=== PATIENT | male | born 1960 | race Caucasian/White ===

== ENCOUNTER 2016-10-07 13:36 | Emergency (ER) | payer BC ==
[~2016-10-07] VITALS: Ht 170.2 cm; Wt 100.2 kg
[~2016-10-07 13:36] MED LIST: AMLO5TAB2 PO; CLC100 PO; MRLP17 PO; MULT-922 PO; ONDA4TAB65 PO; OXYSR15 PO; RXC5 PO; TADA5TAB11 PO
[2016-10-07 13:42] VITALS: TEMP 36.8; Ht 170.2 cm; Wt 100.2 kg
[2016-10-07] MEDS ORDERED: TRAM-10 PO (14:16)
[2016-10-07] MEDS ORDERED: LISI-787 PO (14:16)
[2016-10-07] MEDS ORDERED: CIPR-255 PO (14:16)
[2016-10-07] MEDS ORDERED: SODIUM CHLORIDE 0.9% 1000ML 1,000 ML IV STA ×2 (14:18→15:37)
[2016-10-07] MEDS ORDERED: MoRPHine SULFATE 4 MG/ML 1 ML CARP\\VIAL IV STA (14:18)
[2016-10-07 15:06] LABS: BASO % 0.5 %; BASO ABS # 0.03 K/uL (0-0.2); COMPLETE YES; EOS % 1.1 %; IG% 0.3 %; MEAN CELL VOLUME 95.3 fL (80-100); MEAN CORPUSCULAR HEMOGLOBIN 34.9 pg (25-34); MEAN CORPUSCULAR HGB CONC 36.6 g/dl (32-36); MEAN PLATELET VOLUME 9.4 fL (7.4-10.4); NEUT % 51.1 %; PLATELET COUNT 158 K/uL (130-400); RED BLOOD COUNT 4.93 M/uL (4.7-6.1); WHITE BLOOD COUNT 6.16 K/uL (4.8-10.8)
[2016-10-07 15:24] LABS: CALCIUM 7.3 mg/dl (8.5-10.1); CREATININE 0.9 mg/dl (0.60-1.40); POTASSIUM 3.9 mmol/L (3.5-5.1)
[2016-10-07] MEDS ORDERED: OPTIRAY 320 IV PRN (15:45)
--- NOTE | 2016-10-07 16:23 | DIAGNOSTIC IMAGING REPORT ---
CT OF THE ABDOMEN AND PELVIS WITH CONTRAST CLINICAL HISTORY: Abdominal pain and bloating. COMPARISON STUDY: CT of the abdomen and pelvis January 07, 2016 and abdominal series January 09, 2016. TECHNIQUE: Following IV administration of 93 mL of Optiray-320, axial images of the abdomen and pelvis were obtained from the lung bases to the proximal femurs. Images were reviewed in the axial, sagittal, and coronal planes. IV contrast was administered without complication. CT DOSE: 1003.66 mGycm FINDINGS: Lung bases are clear. There is mild cardiomegaly. A small hiatal hernia is present. Fatty infiltration of the liver is noted. The spleen, adrenal glands, kidneys and pancreas are normal. There is no biliary or pancreatic ductal dilatation. There is no evidence for a bowel obstruction. There is left colon diverticulosis without evidence for acute diverticulitis. There is no free air. No suspicious skeletal lesions are identified. There is mild dextroscoliosis of the thoracolumbar spine. The appendix is normal. IMPRESSION: 1. No acute process within the abdomen or pelvis. 2. Fatty liver. 3. Small hiatal hernia. Electronically signed by: Corey Abreu M.D. 10/07/2016 4:21 PM Dictated Date/Time: 10/07/2016 4:15 PM
--- NOTE | 2016-10-07 17:18 | EMERGENCY ROOM VISIT NOTE ---
History First contact with patient: 14:02 Chief Complaint: ABDOMINAL PAIN Stated Complaint: NOT EATING, ABD. PAIN, NOT FEELING WELL Nursing Triage Summary: pt was laid off 2 weeks ago. per "he drank himself sick". pt c/o n/v/d, abd pain. hx of alchoholism History of Present Illness The patient is a 56 year old male who presents to the Emergency Room with complaints of abdominal pain, decreased appetite and diarrhea. The patient is here with his , who states that the patient was laid off of work 2 weeks ago and has been "drinking himself sick" since then. She states that she believes there is something wrong with his kidneys, as this has happened to him before. Patient has had diarrhea and has not been eating much. The patient has been drinking a half liter of vodka daily. His last drink was yesterday. Prior to this, the patient had been drinking 1-2 alcoholic beverages per day. He does have a history of alcoholism. He rates his discomfort a 10/10. He denies any chest pain, palpitations, shortness of breath, vomiting, fevers or recent illness. Review of Systems A complete 10-point Review of Systems was discussed with the patient, with pertinent positives and negatives listed in the History of Present Illness. All remaining Review of Systems questions can be considered negative unless otherwise specified. Past Medical/Surgical History Medical Problems: (1) NUBIA (acute kidney injury) (2) Alcohol abuse (3) Alcohol intoxication (4) Benign hypertension (5) Coronary artery disease (6) Dyslipidemia (7) History of Clostridium difficile (8) History of GI bleed (9) hyperhidrosis (10) Hypertension (11) Portal hypertensive gastropathy (12) RBBB (13) Renal artery stenosis (14) Rhabdomyolysis (15) Tobacco user Surgical Problems: (1) H/O esophagogastroduodenoscopy Family History Diabetes mellitus BROTHER Hypertension Social History Smoking Status: Current Every Day Smoker Alcohol Use: heavy Drug Use: none Marital Status: Housing Status: lives with significant other Occupation Status: employed Current/Historical Medications Scheduled Ciprofloxacin Hcl (Cipro), 500 MG PO BID Docusate Sodium (Docusate Sodium), 100 MG PO BID Lisinopril/Hctz (Zestoretic 20MG/12.5MG), 1 TAB PO DAILY Multiple Vitamins W/ Minerals (Multivitamin Adults), 1 TAB PO DAILY Tramadol (Ultram), 100 MG PO BID Allergies Coded Allergies: No Known Allergies (Unverified , 05/28/16) Physical Exam Vital Signs Date Time Temp Pulse Resp B/P Pulse Ox O2 Delivery O2 Flow Rate FiO2 10/07/16 17:35 96 20 154/107 98 10/07/16 16:58 98 20 166/113 98 Room Air 10/07/16 15:11 93 18 162/109 94 Room Air 10/07/16 14:38 101 22 142/105 95 Room Air 10/07/16 14:30 102 10/07/16 13:42 36.8 122 18 143/98 96 Room Air Physical Exam VITALS: Vitals are noted on the nurse's note and reviewed by myself. Vital signs stable. GENERAL: This is a 56-year-old male, in no acute distress, nondiaphoretic, well- developed well-nourished. SKIN: Capillary reflex less than 2 seconds. HEENT: Normocephalic. PERRLA. EOMI. Nares patent. Mucous membranes moist. Neck is supple without nuchal rigidity. HEART: Regular rate and rhythm without murmurs gallops or rubs. LUNGS: Clear to auscultation bilaterally without wheezes, rales or rhonchi. No retractions or accessory muscle use. ABDOMEN: Obese abdomen. Positive bowel sounds. Soft, nontender to palpation. NEURO: Patient was alert and oriented to person place and time. Medical Decision & Procedures ER Provider Diagnostic Interpretation: CT OF THE ABDOMEN AND PELVIS WITH CONTRAST CLINICAL HISTORY: Abdominal pain and bloating. COMPARISON STUDY: CT of the abdomen and pelvis January 07, 2016 and abdominal series January 09, 2016. TECHNIQUE: Following IV administration of 93 mL of Optiray-320, axial images of the abdomen and pelvis were obtained from the lung bases to the proximal femurs. Images were reviewed in the axial, sagittal, and coronal planes. IV contrast was administered without complication. CT DOSE: 1003.66 mGycm FINDINGS: Lung bases are clear. There is mild cardiomegaly. A small hiatal hernia is present. Fatty infiltration of the liver is noted. The spleen, adrenal glands, kidneys and pancreas are normal. There is no biliary or pancreatic ductal dilatation. There is no evidence for a bowel obstruction. There is left colon diverticulosis without evidence for acute diverticulitis. There is no free air. No suspicious skeletal lesions are identified. There is mild dextroscoliosis of the thoracolumbar spine. The appendix is normal. IMPRESSION: 1. No acute process within the abdomen or pelvis. 2. Fatty liver. 3. Small hiatal hernia. Laboratory Results 10/07/16 14:40 Red Blood Count 4.93, Mean Corpuscular Volume 95.3, Mean Corpuscular Hemoglobin 34.9, Mean Corpuscular Hemoglobin Concent 36.6, Mean Platelet Volume 9.4, Neutrophils (%) (Auto) 51.1, Lymphocytes (%) (Auto) 39.0, Monocytes (%) (Auto) 8.0, Eosinophils (%) (Auto) 1.1, Basophils (%) (Auto) 0.5, Neutrophils # (Auto) 3.15, Lymphocytes # (Auto) 2.40, Monocytes # (Auto) 0.49, Eosinophils # (Auto) 0.07, Basophils # (Auto) 0.03 10/07/16 14:40 Test 10/07/16 14:40 10/07/16 16:50 White Blood Count 6.16 K/uL (4.8-10.8) Red Blood Count 4.93 M/uL (4.7-6.1) Hemoglobin 17.2 g/dL (14.0-18.0) Hematocrit 47.0 % (42-52) Mean Corpuscular Volume 95.3 fL (80-100) Mean Corpuscular Hemoglobin 34.9 pg (25-34) Mean Corpuscular Hemoglobin Concent 36.6 g/dl (32-36) Platelet Count 158 K/uL (130-400) Mean Platelet Volume 9.4 fL (7.4-10.4) Neutrophils (%) (Auto) 51.1 % Lymphocytes (%) (Auto) 39.0 % Monocytes (%) (Auto) 8.0 % Eosinophils (%) (Auto) 1.1 % Basophils (%) (Auto) 0.5 % Neutrophils # (Auto) 3.15 K/uL (1.4-6.5) Lymphocytes # (Auto) 2.40 K/uL (1.2-3.4) Monocytes # (Auto) 0.49 K/uL (0.11-0.59) Eosinophils # (Auto) 0.07 K/uL (0-0.5) Basophils # (Auto) 0.03 K/uL (0-0.2) RDW Standard Deviation 47.1 fL (36.4-46.3) RDW Coefficient of Variation 13.5 % (11.5-14.5) Immature Granulocyte % (Auto) 0.3 % Immature Granulocyte # (Auto) 0.02 K/uL (0.00-0.02) Anion Gap 11.0 mmol/L (3-11) Est Creatinine Clear Calc Drug Dose 105.8 ml/min Estimated GFR () 111.8 Estimated GFR (Non- 96.5 BUN/Creatinine Ratio 20.0 (10-20) Calcium Level 7.3 mg/dl (8.5-10.1) Total Bilirubin 1.7 mg/dl (0.2-1) Aspartate Amino Transf (AST/SGOT) 333 U/L (15-37) Alanine Aminotransferase (ALT/SGPT) 189 U/L (12-78) Alkaline Phosphatase 83 U/L (45-117) Total Creatine Kinase 304 U/L (39-308) Total Protein 6.9 gm/dl (6.4-8.2) Albumin 3.4 gm/dl (3.4-5.0) Globulin 3.5 gm/dl (2.5-4.0) Albumin/Globulin Ratio 1.0 (0.9-2) Ethyl Alcohol mg/dL 263.0 mg/dl (0-3) Urine Color YELLOW Urine Appearance CLEAR (CLEAR) Urine pH 6.0 (4.5-7.5) Urine Specific [place] 1.023 (1.000-1.030) Urine Protein NEG (NEG) Urine Glucose (UA) NEG (NEG) Urine Ketones NEG (NEG) Urine Occult Blood NEG (NEG) Urine Nitrite NEG (NEG) Urine Bilirubin NEG (NEG) Urine Urobilinogen NEG (NEG) Urine Leukocyte Esterase NEG (NEG) Urine Opiates Screen POS (NEG) Urine Methadone, Qualitative NEG (NEG) Urine Barbiturates NEG (NEG) Urine Phencyclidine (PCP) Level NEG (NEG) Ur Amphetamine/Methamphetamine NEG (NEG) MDMA (Ecstasy) Screen NEG (NEG) Urine Benzodiazepines Screen NEG (NEG) Urine Cocaine Metabolite NEG (NEG) Urine Marijuana (THC) NEG (NEG) Medications Administered Medications (Trade) Dose Ordered Sig/Johnny Route Start Time Stop Time Status Last Admin Dose Admin Sodium Chloride (Nss 1000ml) 1,000 ml @ 999 mls/hr Q1H1M STAT IV 10/07/16 14:18 10/07/16 15:18 DC 10/07/16 14:54 999 MLS/HR Morphine Sulfate 4 mg 4 mg NOW STAT IV 10/07/16 14:18 10/07/16 14:20 DC 10/07/16 14:54 4 MG Sodium Chloride (Nss 1000ml) 1,000 ml @ 999 mls/hr Q1H1M STAT IV 10/07/16 15:37 10/07/16 16:37 DC 10/07/16 15:49 999 MLS/HR Medical Decision Differential diagnosis includes alcohol abuse, alcohol withdrawal, kidney failure, acute hepatitis, among others. The patient was evaluated as above. Labs were drawn and IV access was obtained. Imaging studies were performed and read by radiology as above. The patient was medicated with small dose of morphine for his abdominal pain. The patient was reassessed multiple times during their stay in the emergency department and remained in stable condition. The patient is a 56-year-old male who presents today complaining of abdominal pain after excessive alcohol use recently. Labs revealed no leukocytosis, anemia or concerning electrolyte abnormalities. LFTs are moderately elevated consistent with the patient's recent alcohol consumption. Urinalysis was do not suggestive of infection. Alcohol level was found to be 263. CT scan of the abdomen and pelvis with IV contrast was performed and did not show any acute findings. The patient was offered alcohol rehabilitation services, but declined. He will follow-up with his primary care provider and will return for worsening symptoms. The patient and his verbalized understanding of my assessment and treatment plan. Based on the patient's presentation, lab results, and imaging studies, I feel the patient is stable for outpatient treatment. The patient's case was reviewed with Dr. Ragland, ED attending physician, who agreed with my assessment and treatment plan. Discharge instructions were reviewed with the patient. The patient verbalized understanding of my assessment and treatment plan and was discharged home in good condition. Impression Primary Impression: Alcohol abuse Departure Information Dispostion Home / Self-Care Condition GOOD Referrals Tesfaye Santana M.D. (PCP) Patient Instructions My [facility] Additional Instructions Stop drinking alcohol. Drink plenty of fluids. You have been given an order to have your stool tested as an outpatient. You should also follow-up with your primary care provider within the week. Return to the emergency department with new/worsening symptoms.
[2016-10-07 17:34] LABS: URINE APPEARANCE CLEAR (CLEAR); URINE BILIRUBIN NEG (NEG); URINE COLOR YELLOW; URINE NITRITE NEG (NEG); URINE SPECIFIC GRAVITY 1.023 (1.000-1.030); UROBILINOGEN NEG (NEG); ZZUR CULT IF INDIC CLEAN CATCH NO
[2016-10-07 17:35] VITALS: BP 154/107; PULSE 96; O2SAT 98
[2016-10-07 17:36] LABS: MANUAL MICROSCOPIC REQUIRED? NO; REVIEW REQ? NO
[2016-10-07 18:16] LABS: BENZODIAZEPINE, URINE NEG (NEG); COCAINE,URINE NEG (NEG); PHENCYCLIDINE, URINE NEG (NEG)
[2016-10-11 01:48] LABS: COD UR NEGATIVE NG/ML (CUTOFF=50); HYDROCOD UR NEGATIVE NG/ML (CUTOFF=50); HYDROMOR UR NEGATIVE NG/ML (CUTOFF=50); MORPHINE UR 1300 NG/ML (CUTOFF=50); NORHYDROCODONE CONF UR NEGATIVE NG/ML (CUTOFF=50); OXYMORPH UR NEGATIVE NG/ML (CUTOFF=50)
[2016-10-26] MEDS ORDERED: FLV1 PO (14:48)
[2016-10-26] MEDS ORDERED: THM100 PO (14:48)
[2016-10-26] MEDS ORDERED: PRT40 PO (14:48)
[2016-10-26] MEDS ORDERED: LACTCAP3 PO (14:48)
[2016-10-26] MEDS ORDERED: MTR500 PO (14:48)
[2017-03-31] MEDS ORDERED: LSN20 PO (17:31)
[2017-03-31] MEDS ORDERED: LPT40 PO (17:31)
[2017-03-31] MEDS ORDERED: NTRSLP4 SL (17:31)
[2017-03-31] MEDS ORDERED: CRG625 PO (17:31)
[2017-03-31] MEDS ORDERED: PLV75 PO (17:31)
[2017-03-31] MEDS ORDERED: ASPEC81 PO (17:31)
[2017-04-29] MEDS ORDERED: VNCS125 PO (19:55)
[2017-04-29] MEDS ORDERED: LXP10 PO (19:55)
== END 2016-10-07 17:36 | disposition home or self-care (01) ==
LOC: C.EDB 13:38
DX: F10.129 Alcohol abuse with intoxication, unspecified (principal); Y90.8 Blood alcohol level of 240 mg/100 ml or more; I10 Essential (primary) hypertension; E78.5 Hyperlipidemia, unspecified; I25.10 Atherosclerotic heart disease of native coronary artery without angina pectoris; K31.89 Other diseases of stomach and duodenum; F17.200 Nicotine dependence, unspecified, uncomplicated; Z86.19 Personal history of other infectious and parasitic diseases; Z98.890 Other specified postprocedural states; Z79.899 Other long term (current) drug therapy; Z83.3 Family history of diabetes mellitus; Z82.49 Family history of ischemic heart disease and other diseases of the circulatory system

== ENCOUNTER 2016-10-21 14:01 | Inpatient (IN) | payer BC ==
[~2016-10-21] VITALS: Ht 167.6 cm; Wt 103.6 kg
[~2016-10-21 14:01] MED LIST changes: -AMLO5TAB2 PO; +CIPR-255 PO; +LISI-787 PO; -MRLP17 PO; -ONDA4TAB65 PO; -OXYSR15 PO; -RXC5 PO; -TADA5TAB11 PO; +TRAM-10 PO
[2016-10-21 14:55] LABS: HEMATOCRIT 41.2 % (42-52); MEAN CELL VOLUME 93.6 fL (80-100); MEAN CORPUSCULAR HEMOGLOBIN 34.3 pg (25-34); MEAN CORPUSCULAR HGB CONC 36.7 g/dl (32-36); WHITE BLOOD COUNT 3.83 K/uL (4.8-10.8)
[2016-10-21 15:15] LABS: BUN/CREATININE RATIO 11.4 (10-20); CALCIUM 7.3 mg/dl (8.5-10.1); CREATININE 0.91 mg/dl (0.60-1.40); POTASSIUM 3.4 mmol/L (3.5-5.1)
[2016-10-21] MEDS ORDERED: KETOROLAC TROMETHAMINE 30 MG/ML VIAL IV STA (15:16)
[2016-10-21] MEDS ORDERED: SODIUM CHLORIDE 0.9% 1000ML 1,000 ML IV STA (15:16)
[2016-10-21 15:22] LABS: ALB/GLOB RATIO 0.8 (0.9-2)
[2016-10-21 15:25] LABS: THYROID STIMULATING HORMONE 3.45 uIu/ml (0.300-4.500)
[2016-10-21] MEDS ORDERED: NICOTINE 21 MG/24 HR TDSY ONE (15:26)
[2016-10-21] MEDS ORDERED: OPTIRAY 320 IV PRN (15:30)
[2016-10-21] MEDS ORDERED: NICOTINE 14 MG/24 HR TDSY TD SCH (15:30)
[2016-10-21 15:46] LABS: MEAN PLATELET VOLUME 10.3 fL (7.4-10.4); PLATELET COUNT 59 K/uL (130-400)
[2016-10-21 15:47] LABS: BASO % 0.3 %; BASO ABS # 0.01 K/uL (0-0.2); COMPLETE YES; IG% 0.3 %; LYMPH % 35.5 %; LYMPH ABS # 1.36 K/uL (1.2-3.4); MONO % 5.5 %; NEUT % 58.4 %; PLT ESTIMATE DECREASED
--- NOTE | 2016-10-21 16:24 | DIAGNOSTIC IMAGING REPORT ---
CT ABD/PELVIS IV CONTRAST ONLY CLINICAL HISTORY: Diffuse lower abdominal pain COMPARISON STUDY: 10/07/2016 TECHNIQUE: Following the IV administration of 118 mL of Optiray-320, CT scan of the abdomen and pelvis was performed from the lung bases to the proximal femurs. Images are reviewed in the axial, sagittal, and coronal planes. IV contrast was administered without complication. CT DOSE: 760.80 mGy.cm FINDINGS: Lower chest: The heart is normal in size and configuration, without pericardial effusion. The lung bases and pleural spaces are clear. Liver: There is hepatic steatosis. No focal masses are visualized. Gallbladder: Unremarkable. Spleen: Normal in size and attenuation. Pancreas: Unremarkable. Adrenal glands: Unremarkable. Kidneys: There is symmetric renal cortical enhancement. The kidneys are normal in size without hydronephrosis. Bowel: There are no transition zones indicate bowel obstruction. The appendix appears normal. There is colonic diverticulosis. There is no acute diverticulitis. There is colonic wall thickening, most pronounced involving the ascending colon and cecum. This is probably secondary to submucosal fat hypertrophy. This may indicate chronic inflammatory bowel disease. On coronal reformatted images, there is an apparent annular appearance of the cecum. This is felt to represent the ileocecal valve. Given the patient's age, the patient has not had a screening colonoscopy, this should be performed. Peritoneum: There is no intraperitoneal free air or abdominal ascites. Vasculature: The abdominal aorta is normal in course and caliber. Adenopathy: None. Pelvic viscera: The bladder, and pelvic viscera are unremarkable. Skeletal structures: No destructive osseous lesions are seen. IMPRESSION: 1. No evidence of bowel obstruction. No evidence of free air 2. Hepatic steatosis 3. Normal appendix. 4. Diverticulosis. No evidence of acute peridiverticular inflammatory change 5. Hypertrophy of the submucosal fat within the colon most pronounced within the ascending colon and cecum. This finding has been reported in inflammatory bowel disease. Electronically signed by: Catalino Cuevas M.D. 10/21/2016 4:22 PM Dictated Date/Time: 10/21/2016 4:15 PM
[2016-10-21] MEDS ORDERED: ONDANSETRON INJ 2 MG/ML 2 ML VIAL IV PRN (18:15)
[2016-10-21 18:29] LABS: PROTHROMBIN TIME (PATIENT) 11.2 SECONDS (9.0-12.0)
[2016-10-21] MEDS ORDERED: GABAPENTIN 600 MG TAB PO SCH (18:30)
[2016-10-21] MEDS ORDERED: MoRPHine SULFATE 4 MG/ML 1 ML CARP\\VIAL IV PRN (18:30)
[2016-10-21] MEDS ORDERED: LORAZEPAM 2 MG/ML 1 ML VIAL IV PRN (18:30)
[2016-10-21] MEDS ORDERED: MoRPHine SULFATE 4 MG/ML 1 ML CARP\\VIAL IV ONE (18:30)
[2016-10-21] MEDS ORDERED: ONDANSETRON INJ 2 MG/ML 2 ML VIAL IV ONE (18:30)
[2016-10-21] MEDS ORDERED: CHLORDIAZEPOXIDE 25 MG CAP PO SCH (18:30)
[2016-10-21] MEDS ORDERED: ALUMINUM/MAGNESIUM SUSP 30 ML UDC PO PRN (18:45)
--- NOTE | 2016-10-21 18:52 | History and Physical ---
History & Physical Date & Time of Service: Oct 21, 2016 at 18:14 Chief Complaint: Mental Health Evaluation Primary Care Physician: Tesfaye Santana M.D. History of Present Illness Source: patient, clinic records, hospital records Patient seen and examined. 56 year old male with PMHx of alcohol abuse, hepatitis C, HTN, tobacco abuse and other problems listed below presents to the ED after signed 302 earlier today for suicidal ideations. When speaking with patient he denies suicidal ideations. He reports he was layed off 3 weeks ago and since then has been drinking a 1/2 bottle of vodka daily. He reports he feels very depressed. He states he has not been eating or bathing. He reports diffuse sharp 10/10 abdominal pain for the past month. He reports associated diarrhea. He denies fevers, chills, URI symptoms, chest pain, SOB, nausea, vomiting, dysuria, calf pain and edema. He denies suicidal/homicidal ideations, denies hallucinations. He denies illicit drug use. Per report patient asked his for a gun today stating that "today would be the last day." called [employer] and a 302 was signed patient was escorted to [facility] by police for further evaluation. In the ED patient is tachycardic, LFTs are elevated Alcohol level is 358. CT A/P showed hypertrophy of submucosal fat but was otherwise unremarkable, CT did not show gallbladder disease. Patient has a history of Hepatitis C but does not take medications d/t cost. He received Toradol, IVFs, and nicotine patch. He will be admitted for further workup and treatment. 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 Status: Chronic (4) Dyslipidemia Status: Chronic (5) History of Clostridium difficile Status: Chronic (6) History of GI bleed Permanent Comment: secondary to esophageal ulceration on EGD 11/29/2013 Status: Chronic (7) hyperhidrosis Status: Chronic (8) Hypertension Status: Chronic (9) Portal hypertensive gastropathy Status: Chronic (10) RBBB Status: Chronic (11) Renal artery stenosis Permanent Comment: questionable Status: Chronic (12) Rhabdomyolysis Status: Resolved (13) Tobacco user Status: Chronic Surgical Problems: (1) H/O esophagogastroduodenoscopy Permanent Comment: 11/29/2013- Large lower esophageal ulceration. No bleeding. Portal hypertensive gastropathy. Erythematous duodenopathy. Normal 2nd part of the duodenum. Status: Chronic Family History Diabetes mellitus BROTHER Hypertension Social History Smoking Status: Current Every Day Smoker Alcohol Use: heavy Drug Use: none Marital Status: Housing status: lives with family Occupational Status: employed Immunizations History of Influenza Vaccine: No History of Tetanus Vaccine?: Yes History of Pneumococcal: No History of Hepatitis B Vaccine: Yes Multi-Drug Resistant Organisms History of MDRO: No Allergies Coded Allergies: No Known Allergies (Unverified , 05/28/16) Home Medications No Active Prescriptions or Reported Meds Review of Systems See above for pertinent positives & negatives. A total of 10 systems reviewed and were otherwise negative. Physical Exam Vital Signs Date Time Temp Pulse Resp B/P Pulse Ox O2 Delivery O2 Flow Rate FiO2 10/21/16 18:03 121 20 128/107 96 Room Air 10/21/16 16:38 123 18 97 Room Air 10/21/16 15:22 106 10/21/16 15:12 18 119/88 Room Air 10/21/16 14:00 37.2 121 22 140/114 97 Room Air General Appearance: + pertinent finding (WD/WN 56 year old male lying in bed in NAD) Head: normocephalic, atraumatic Eyes: PERRL, EOMI, sclerae normal ENT: hearing grossly normal, pharynx normal Neck: supple, no JVD, trachea midline Respiratory/Chest: chest non-tender, lungs clear, normal breath sounds, no respiratory distress, no accessory muscle use Cardiovascular: no edema, no gallop, no JVD, no murmur, normal peripheral pulses, + tachycardia (110s, regular ) Abdomen/GI: normal bowel sounds, soft, no organomegaly, + tenderness (diffuse ) Back: normal inspection, no muscle spasm Extremities/Musculoskelatal: no calf tenderness, normal capillary refill, no pedal edema Neurologic/Psych: + pertinent finding (Alert and oriented x 3, no tremor noted , no focal deficits noted, thought process goal dirrect, denies suicidal/ homicidal ideations, no hallucinations noted ) Skin: normal color, warm/dry, no rash Lymphatic: no adenopathy Diagnostics Laboratory Results Results Past 24 Hours Test 10/21/16 14:35 10/21/16 18:03 10/21/16 18:05 Range/Units White Blood Count 3.83 4.8-10.8 K/uL Red Blood Count 4.40 4.7-6.1 M/uL Hemoglobin 15.1 14.0-18.0 g/dL Hematocrit 41.2 42-52 % Mean Corpuscular Volume 93.6 80-100 fL Mean Corpuscular Hemoglobin 34.3 25-34 pg Mean Corpuscular Hemoglobin Concent 36.7 32-36 g/dl Platelet Count 59 130-400 K/uL Mean Platelet Volume 10.3 7.4-10.4 fL Neutrophils (%) (Auto) 58.4 % Lymphocytes (%) (Auto) 35.5 % Monocytes (%) (Auto) 5.5 % Eosinophils (%) (Auto) 0.0 % Basophils (%) (Auto) 0.3 % Neutrophils # (Auto) 2.24 1.4-6.5 K/uL Lymphocytes # (Auto) 1.36 1.2-3.4 K/uL Monocytes # (Auto) 0.21 0.11-0.59 K/uL Eosinophils # (Auto) 0.00 0-0.5 K/uL Basophils # (Auto) 0.01 0-0.2 K/uL RDW Standard Deviation 48.8 36.4-46.3 fL RDW Coefficient of Variation 14.3 11.5-14.5 % Immature Granulocyte % (Auto) 0.3 % Immature Granulocyte # (Auto) 0.01 0.00-0.02 K/uL Platelet Estimate DECREASED Sodium Level 140 136-145 mmol/L Potassium Level 3.4 3.5-5.1 mmol/L Chloride Level 104 98-107 mmol/L Carbon Dioxide Level 24 21-32 mmol/L Anion Gap 12.0 3-11 mmol/L Blood Urea Nitrogen 10 7-18 mg/dl Creatinine 0.91 0.60-1.40 mg/dl Est Creatinine Clear Calc Drug Dose 99.9 ml/min Estimated GFR () 110.3 Estimated GFR (Non- 95.2 BUN/Creatinine Ratio 11.4 10-20 Random Glucose 114 70-99 mg/dl Calcium Level 7.3 8.5-10.1 mg/dl Total Bilirubin 1.6 0.2-1 mg/dl Aspartate Amino Transf (AST/SGOT) 581 15-37 U/L Alanine Aminotransferase (ALT/SGPT) 238 12-78 U/L Alkaline Phosphatase 227 45-117 U/L Total Protein 6.9 6.4-8.2 gm/dl Albumin 3.1 3.4-5.0 gm/dl Globulin 3.8 2.5-4.0 gm/dl Albumin/Globulin Ratio 0.8 0.9-2 Lipase 281 73-393 U/L Thyroid Stimulating Hormone (TSH) 3.450 0.300-4.500 uIu/ml Salicylates Level 2.8-20 mg/dl Acetaminophen Level 10-30 ug/ml Ethyl Alcohol mg/dL 358.0 0-3 mg/dl Diagnostic Radiology CT A/P Per radiologist read: IMPRESSION: 1. No evidence of bowel obstruction. No evidence of free air 2. Hepatic steatosis 3. Normal appendix. 4. Diverticulosis. No evidence of acute peridiverticular inflammatory change 5. Hypertrophy of the submucosal fat within the colon most pronounced within the ascending colon and cecum. This finding has been reported in inflammatory bowel disease. Impression Assessment and Plan 56 year old male with PMHx of alcohol abuse presents to the ED as a 302 involuntary commitment after asking his for a gun because "today would be his last day." Denies suicidal ideations on arrival, complains of abdominal pain ALCOHOL ABUSE -Admit to tele -Reports history of DTs, denies history of seizures -Alcohol level 358 -Banana bag now -Ativan, Librium, per withdrawal protocol -Multivitamin, folate, thiamine daily -Seizure precautions -one to one observation -Psych consult placed -CBC, CMP, Mg daily TRANSAMINITIS, H/O HEPATITIS C -LFTs increased from previous visit in 10/05 -? secondary to acute alcohol use -GI consult placed -discussed case with Dr. Ingrid BARRIOS, recommends further infectious workup at this time. Does not recommend steroid use until infection is r/o. Also warns steroid use in patient with Suicidal ideations. Input appreciated -Follow LFTs -check coags ABDOMINAL PAIN/DIARRHEA -? cause -CT nonspecific -elevated LFTs but history of hepatitis -? gastritis -clear liquid diet -IV PPI -IVFs -GI consult placed for further input -check C.diff, stool cultures, UA SUICIDAL IDEATIONS -patient currently denies suicidal ideations, signed 302 form -One to one observation, suicide checks -Psychiatry consult placed HYPOKALEMIA -replace -check magnesium THROMBOCYTOPENIA -59 today -likely secondary to alcohol abuse -no anticoagulation -follow daily TOBACCO ABUSE -Cessation counseling given -Nicotine patch ordered DVT PROPHYLAXIS: SCDs RE: thrombocytopenia CODE STATUS: FULL CODE DISPO:In my clinical judgment this beneficiary meets acute admission criteria, established by [facility], that includes being hospitalized through two midnights. Discharge planning eval Patient seen in collaboration with Dr. Perea ATTENDING ADDENDUM care coordinated with JOSE Elliott please refer to her notes for full details, I agree with her notes patient seen and examined, records reviewed by myself as well on exam, patient seen uncomfortable due to abdominal pain- diffuse, crampy, also with some nausea (+) diarrhea, flatus states he feels like he is having withdrawals already no other symptoms VS noted and reviewed oriented x 3, speaks in sentences with no effort nor accessory muscle use tachycardic rate, regular rhythm, no murmurs clear breath sounds bilaterally non distended, normal bowel sounds, soft, tender on all quadrants no bipedal edema, erythema, warmth no neuro deficits AST [address] abdomen: IMPRESSION: 1. No evidence of bowel obstruction. No evidence of free air 2. Hepatic steatosis 3. Normal appendix. 4. Diverticulosis. No evidence of acute peridiverticular inflammatory change 5. Hypertrophy of the submucosal fat within the colon most pronounced within the ascending colon and cecum. This finding has been reported in inflammatory bowel disease. ASSESSMENT/PLAN> ABDOMINAL PAIN, ELEVATED LFTS HISTORY OF HEP C CIRRHOSIS - possible Alcohol Hepatitis? discussed with Dr. Quintero, hold Prednisone for now - possible Gastritis, PUD from Alcoholism, poor oral intake EGD last year: unrevealing Protonix BIP, PRN analgesia - GI consulted POSSIBLE ALCOHOL WITHDRAWAL - Librium, PRN Ativan IV fluids monitor in Tele DEPRESSION WITH SUICIDAL IDEATIONS - 1:1 obs Psych consult other diagnoses and plan of care as per JOSE Elliott's notes Christiano Perea MD VTE Prophylaxis VTE Risk Assessment Done? Y/N: Yes Risk Level: Moderate
[2016-10-21 19:45] VITALS: BP 104/103; PULSE 130; TEMP 36.9; O2SAT 97; Ht 167.6 cm; Wt 103.6 kg
[2016-10-21] MEDS: LORAZEPAM 2 MG/ML 1 ML VIAL IV PRN ×2 (20:10→23:53)
[2016-10-21] MEDS ORDERED: POTASSIUM CHLORIDE PWD 20 MEQ PACK PO ONE (20:30)
[2016-10-21] MEDS ORDERED: MULTI-VITAMIN INFUSION INJ 10 ML, THIAMINE HCL INJ 100 MG, FoLIC ACID INJ 1 MG in SODIU... IV ONE (20:30)
[2016-10-21] MEDS ORDERED: PANTOprazole INJ 40 MG in SYRINGE 0 ML IV SCH (21:00)
[2016-10-21] MEDS ORDERED: PANTOprazole SOD 40 MG TAB PO SCH (21:00)
[2016-10-21 22:00] VITALS: BP 137/106; PULSE 134
[2016-10-21] MEDS ORDERED: GABAPENTIN 1200MG LOADING DOSE PO ONE (22:00)
[2016-10-21] MEDS: PANTOprazole INJ 40 MG in SYRINGE 0 ML IV SCH (22:14)
[2016-10-21] MEDS: CHLORDIAZEPOXIDE 25MG 1ST DOSE PO SCH (22:14)
--- NOTE | 2016-10-21 22:27 | EMERGENCY ROOM VISIT NOTE ---
History Report prepared by Roro: Angelia Christie Under the Supervision of: Dr. Rex Manuel D.O. First contact with patient: 14:50 Chief Complaint: MENTAL HEALTH EVALUATION Stated Complaint: U History of Present Illness The patient is a 56 year old male who presents to the Emergency Room for a mental health evaluation. Per nursing staff, the patient has not been taking care of himself recently and has been soiling himself with both urine and stool. The patient admits that he has been drinking heavily over the past 2 weeks since he was laid off of his job. The patient states that he drank about a half of a bottle of vodka today. He typically drinks about a quarter of a bottle of vodka a day over the past year. He has been through withdrawal in the past but has never had a seizure. He denies drug use. The patient denies any suicidal or homicidal ideation. Today, the patient's and mother were concerned about his well being and called [facility] who evaluated the patient at his home. Per nursing staff notes, the patient was brought in by police today. His called [facility] because he was making suicidal threats and said that today would be his last day. He reportedly asked her for a gun. Currently, the patient complains of central abdominal pain over the past 2 days. He has had similar pain in the past which he believes was due to diverticulitis. He has also been having diarrhea over the past couple of days. He has had two very small episodes of diarrhea a day since it began. He still has his gallbladder and appendix. Pt denies headache, change in vision, fevers, chest pain, shortness of breath, nausea, vomiting, pain with urination, and melena. Source of History: patient, nursing staff Onset: FRETTED [employer] HAND Position: other (psych) Quality: other (mental health evaluation) Associated Symptoms: + abdominal pain, + diarrhea, No SOB, No chest pain, No fevers, No headache, No melena, No nausea, No urinary symptoms, No vomiting Review of Systems See HPI for pertinent positives & negatives. A total of 10 systems reviewed and were otherwise negative. 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 (11) Hypertension (12) Portal hypertensive gastropathy (13) RBBB (14) Renal artery stenosis (15) Rhabdomyolysis (16) Suicidal ideations (17) Tobacco user Surgical Problems: (1) H/O esophagogastroduodenoscopy Family History Diabetes mellitus BROTHER Hypertension Social History Smoking Status: Current Every Day Smoker Alcohol Use: heavy Drug Use: none Marital Status: Housing Status: lives with significant other Occupation Status: employed Current/Historical Medications No Active Prescriptions or Reported Meds Allergies Coded Allergies: No Known Allergies (Unverified , 05/28/16) Physical Exam Vital Signs Date Time Temp Pulse Resp B/P Pulse Ox O2 Delivery O2 Flow Rate FiO2 10/21/16 18:03 121 20 128/107 96 Room Air 10/21/16 16:38 123 18 97 Room Air 10/21/16 15:22 106 10/21/16 15:12 18 119/88 Room Air 10/21/16 14:00 37.2 121 22 140/114 97 Room Air Physical Exam GENERAL: Laying in bed, disheveled, nontoxic. EYE EXAM: normal conjunctiva OROPHARYNX: no exudate, no erythema, lips, buccal mucosa, and tongue normal and mucous membranes are moist NECK: supple, no nuchal rigidity, no adenopathy, non-tender LUNGS: Clear to auscultation. Normal chest wall mechanics HEART: no murmurs, S1 normal and S2 normal ABDOMEN: abdomen soft, diffusely tender, normo-active bowel sounds, no masses, no rebound or guarding. BACK: Back is symmetrical on inspection and there is no deformity, no midline tenderness, no CVA tenderness. SKIN: no rashes and no bruising UPPER EXTREMITIES: upper extremities are grossly normal. LOWER EXTREMITIES: No pitting edema. NEURO EXAM: Normal sensorium, cranial nerves II-XII grossly intact, normal speech, no gross weakness of arms, no gross weakness of legs. PSYCH: Denies suicidal or homicidal ideations. Medical Decision & Procedures ER Provider Diagnostic Interpretation: Results have been interpreted by the radiologist and reviewed by me. CT ABD/PELVIS IV CONTRAST ONLY CLINICAL HISTORY: Diffuse lower abdominal pain COMPARISON STUDY: 10/07/2016 TECHNIQUE: Following the IV administration of 118 mL of Optiray-320, CT scan of the abdomen and pelvis was performed from the lung bases to the proximal femurs. Images are reviewed in the axial, sagittal, and coronal planes. IV contrast was administered without complication. CT DOSE: 760.80 mGy.cm FINDINGS: Lower chest: The heart is normal in size and configuration, without pericardial effusion. The lung bases and pleural spaces are clear. Liver: There is hepatic steatosis. No focal masses are visualized. Gallbladder: Unremarkable. Spleen: Normal in size and attenuation. Pancreas: Unremarkable. Adrenal glands: Unremarkable. Kidneys: There is symmetric renal cortical enhancement. The kidneys are normal in size without hydronephrosis. Bowel: There are no transition zones indicate bowel obstruction. The appendix appears normal. There is colonic diverticulosis. There is no acute diverticulitis. There is colonic wall thickening, most pronounced involving the ascending colon and cecum. This is probably secondary to submucosal fat hypertrophy. This may indicate chronic inflammatory bowel disease. On coronal reformatted images, there is an apparent annular appearance of the cecum. This is felt to represent the ileocecal valve. Given the patient's age, the patient has not had a screening colonoscopy, this should be performed. Peritoneum: There is no intraperitoneal free air or abdominal ascites. Vasculature: The abdominal aorta is normal in course and caliber. Adenopathy: None. Pelvic viscera: The bladder, and pelvic viscera are unremarkable. Skeletal structures: No destructive osseous lesions are seen. IMPRESSION: 1. No evidence of bowel obstruction. No evidence of free air 2. Hepatic steatosis 3. Normal appendix. 4. Diverticulosis. No evidence of acute peridiverticular inflammatory change 5. Hypertrophy of the submucosal fat within the colon most pronounced within the ascending colon and cecum. This finding has been reported in inflammatory bowel disease. Electronically signed by: Catalino Cuevas M.D. 10/21/2016 4:22 PM Dictated Date/Time: 10/21/2016 4:15 PM Laboratory Results 10/21/16 14:35 Red Blood Count 4.40, Mean Corpuscular Volume 93.6, Mean Corpuscular Hemoglobin 34.3, Mean Corpuscular Hemoglobin Concent 36.7, Mean Platelet Volume 10.3, Neutrophils (%) (Auto) 58.4, Lymphocytes (%) (Auto) 35.5, Monocytes (%) (Auto) 5.5, Eosinophils (%) (Auto) 0.0, Basophils (%) (Auto) 0.3, Neutrophils # (Auto) 2.24, Lymphocytes # (Auto) 1.36, Monocytes # (Auto) 0.21, Eosinophils # (Auto) 0.00, Basophils # (Auto) 0.01 10/21/16 14:35 Test 10/21/16 14:35 White Blood Count 3.83 K/uL (4.8-10.8) Red Blood Count 4.40 M/uL (4.7-6.1) Hemoglobin 15.1 g/dL (14.0-18.0) Hematocrit 41.2 % (42-52) Mean Corpuscular Volume 93.6 fL (80-100) Mean Corpuscular Hemoglobin 34.3 pg (25-34) Mean Corpuscular Hemoglobin Concent 36.7 g/dl (32-36) Platelet Count 59 K/uL (130-400) Mean Platelet Volume 10.3 fL (7.4-10.4) Neutrophils (%) (Auto) 58.4 % Lymphocytes (%) (Auto) 35.5 % Monocytes (%) (Auto) 5.5 % Eosinophils (%) (Auto) 0.0 % Basophils (%) (Auto) 0.3 % Neutrophils # (Auto) 2.24 K/uL (1.4-6.5) Lymphocytes # (Auto) 1.36 K/uL (1.2-3.4) Monocytes # (Auto) 0.21 K/uL (0.11-0.59) Eosinophils # (Auto) 0.00 K/uL (0-0.5) Basophils # (Auto) 0.01 K/uL (0-0.2) RDW Standard Deviation 48.8 fL (36.4-46.3) RDW Coefficient of Variation 14.3 % (11.5-14.5) Immature Granulocyte % (Auto) 0.3 % Immature Granulocyte # (Auto) 0.01 K/uL (0.00-0.02) Platelet Estimate DECREASED Prothrombin Time 11.2 SECONDS (9.0-12.0) Prothromb Time International Ratio 1.0 (0.9-1.1) Activated Partial Thromboplast Time 26.2 SECONDS (21.0-31.0) Partial Thromboplastin Ratio 1.0 Anion Gap 12.0 mmol/L (3-11) Est Creatinine Clear Calc Drug Dose 99.9 ml/min Estimated GFR () 110.3 Estimated GFR (Non- 95.2 BUN/Creatinine Ratio 11.4 (10-20) Calcium Level 7.3 mg/dl (8.5-10.1) Magnesium Level 2.0 mg/dl (1.8-2.4) Total Bilirubin 1.6 mg/dl (0.2-1) Direct Bilirubin 0.9 mg/dl (0-0.2) Aspartate Amino Transf (AST/SGOT) 581 U/L (15-37) Alanine Aminotransferase (ALT/SGPT) 238 U/L (12-78) Alkaline Phosphatase 227 U/L (45-117) Total Protein 6.9 gm/dl (6.4-8.2) Albumin 3.1 gm/dl (3.4-5.0) Globulin 3.8 gm/dl (2.5-4.0) Albumin/Globulin Ratio 0.8 (0.9-2) Lipase 281 U/L (73-393) Thyroid Stimulating Hormone (TSH) 3.450 uIu/ml (0.300-4.500) Salicylates Level mg/dl (2.8-20) Acetaminophen Level ug/ml (10-30) Ethyl Alcohol mg/dL 358.0 mg/dl (0-3) Laboratory results per my review. Medications Administered Medications (Trade) Dose Ordered Sig/Johnny Route Start Time Stop Time Status Last Admin Dose Admin Sodium Chloride (Nss 1000ml) 1,000 ml @ 999 mls/hr Q1H1M STAT IV 10/21/16 15:16 10/21/16 16:16 DC 10/21/16 15:34 999 MLS/HR Ketorolac Tromethamine (Toradol Inj) 30 mg NOW STAT IV 10/21/16 15:16 10/21/16 15:18 DC 10/21/16 15:35 30 MG Nicotine (Nicoderm Cq 21MG Patch) 1 patch STK-MED ONCE .ROUTE 10/21/16 15:26 10/21/16 15:27 DC 10/21/16 15:36 1 PATCH ED Course ED COURSE: Vital signs were reviewed and showed tachycardia. The patients medical record was reviewed The above diagnostic studies were performed and reviewed. ED treatments and interventions as stated above. 1507: The patient was evaluated in room A8. A complete history and physical examination was performed. 1516: Ordered Toradol Inj 30 mg IV, NSS 1000 ml @ 999 mls/hr IV. 1530: Ordered Nicotine 1 patch TD. 1720: Upon reevaluation, the patient is resting comfortably.I discussed my findings with the patient and he understands and agrees with the treatment plan. Based on the patients age, coexisting illnesses, exam and lab findings the decision to treat as an inpatient was made. The patient remained stable while under my care. The patient will be evaluated for further management. 1737: I [facility] the case [facility] The patient will be evaluated for further management. Medical Decision Differential diagnoses includes but is not limited to gastritis, peptic ulcer disease, GERD, gallbladder disease, pancreatitis, small bowel obstruction, acute coronary syndrome, pericarditis, ischemic bowel, irritable bowel disease, irritable bowel syndrome, appendicitis, diverticulitis, malignancy, hernia, urinary tract infection, torsion, perforation, trauma, infectious, mood disorder , infection, hypoglycemia, electrolyte abnormalities, cardiac sources, intracerebral event, toxicologic, neurologic, as well as others were entertained. Patient is a 56-year-old alcoholic male who drinks half a bottle of vodka per day and presents the ER through to warrant for suicidal statements that has been making. He has not been showering or taking care of himself. He denies any suicidal or homicidal statements. Labs show no significant leukocytosis or anemia. BMP was unremarkable. LFTs and bilirubin were elevated and are increasing from previous labs. CT of the abdomen and pelvis showed hypertrophy with some mucosal that likely inflammatory. Alcohol was 350. Patient was given a bolus normal saline. He was updated bedside. He was given a nicotine patch. LFTs were elevated I favor this likely secondary to his hepatitis. With his comorbidities, lab findings and CT findings I did elect to admit him medically. Consults Time Called: [phone] Consulting Physician: [facility] Returned Call: [phone] I discussed the case with her. The patient will be evaluated for further management. Impression Primary Impression: Mood disorder Additional Impressions: Suicidal ideations Transaminitis Diffuse abdominal pain Scribe Attestation The scribe's documentation has been prepared under my direction and personally reviewed by me in its entirety. I confirm that the note above accurately reflects all work, treatment, procedures, and medical decision making performed by me. Departure Information Dispostion Being Evaluated By Hospitalist Prescriptions No Active Prescriptions or Reported Meds Referrals Tesfaye Santana M.D. (PCP) Patient Instructions My [facility] Problem Qualifiers
[2016-10-21 22:34] VITALS: BP 130/85
[2016-10-21 23:02] VITALS: BP 132/89; PULSE 134; TEMP 37.7; O2SAT 94
[2016-10-22] VITALS (16 sets, daily range): BP systolic 117–169; BP diastolic 73–118; PULSE 74–120; TEMP 36.1–38; O2SAT 92–98
[2016-10-22] MEDS ORDERED: CHLORDIAZEPOXIDE 25MG Q8H DOSE PO SCH
[2016-10-22] MEDS: SODIUM CHLORIDE 0.9% 1000ML 1,000 ML IV SCH ×4 (00:30→18:08)
[2016-10-22 00:41] LABS: URINE APPEARANCE CLEAR (CLEAR); URINE COLOR DK YELLOW; URINE NITRITE NEG (NEG); URINE SPECIFIC GRAVITY > 1.045 (1.000-1.030); UROBILINOGEN POS (NEG); ZZUR CULT IF INDIC CLEAN CATCH NO
[2016-10-22 00:53] LABS: MANUAL MICROSCOPIC REQUIRED? NO; REVIEW REQ? NO; URINE BILIRUBIN NEG (NEG)
[2016-10-22] MEDS: LORAZEPAM 2 MG/ML 1 ML VIAL IV PRN ×11 (02:17→18:08)
[2016-10-22] MEDS: CHLORDIAZEPOXIDE 25MG 1ST DOSE PO SCH ×3 (05:59→18:08)
[2016-10-22] MEDS ORDERED: GABAPENTIN 600MG Q6H DOSE PO SCH (06:00)
[2016-10-22 07:20] LABS: BASO % 0.3 %; BASO ABS # 0.01 K/uL (0-0.2); EOS % 0.6 %; HEMATOCRIT 34.3 % (42-52); IG% 0.3 %; LYMPH % 23.4 %; LYMPH ABS # 0.73 K/uL (1.2-3.4); MEAN CELL VOLUME 95.3 fL (80-100); MEAN CORPUSCULAR HEMOGLOBIN 33.1 pg (25-34); MEAN CORPUSCULAR HGB CONC 34.7 g/dl (32-36); MEAN PLATELET VOLUME 10.4 fL (7.4-10.4); MONO % 7.7 %; NEUT % 67.7 %; PLATELET COUNT 45 K/uL (130-400); WHITE BLOOD COUNT 3.12 K/uL (4.8-10.8)
[2016-10-22 07:21] LABS: COMPLETE YES
[2016-10-22 07:31] LABS: INR 1.1 (0.9-1.1); PROTHROMBIN TIME (PATIENT) 11.4 SECONDS (9.0-12.0)
[2016-10-22 07:33] LABS: BUN/CREATININE RATIO 13.1 (10-20); CALCIUM 6.8 mg/dl (8.5-10.1); CREATININE 0.78 mg/dl (0.60-1.40); POTASSIUM 3.4 mmol/L (3.5-5.1)
[2016-10-22 07:39] LABS: ALB/GLOB RATIO 0.8 (0.9-2)
--- NOTE | 2016-10-22 07:54 | Gastrointestinal Consultation ---
Gastrointestinal Consultation Date of Consultation: Oct 22, 2016 Attending Physician: Consult from JOSE Loja; On Dr. Raymond's service Consulting Physician: Dr. Henry Reason for Consultation: Abdominal pain History of Present Illness Patient is a 56 year old male patient of Dr. Santana with a hx of increased alcohol intake, portal HTN, CAD, Hyperlipidemia, HTN, esophageal ulcer, C-diff. He was brought to the ED as part of a 302 commitment for suicidal ideations. GI is consulted for abdominal pain. On arrival, Hb = 15; CT with IV, no oral contrast with hepatic steatosis and with question of IBD. LFTs were elevated at T bili 1.6, AST 581, ALT 238, Alk Phos 227. Of note he underwent colonoscopy in 2015 with multiple sigmoid diverticulosis w/o suggestion of IBD, though it was a bad prep. The patient is seen and examined while he is resting in bed in the medical ICU. He is awake, alert, oriented to person, place but has some confusion about time/ date. He is tremulous and asks for, "something for the shaking." when asked to identify his area of pain, he initially placed his hand over the epigastrium then later both hands around the umbilicus. He tells me that his stomach hurts at a 10 of 10 and that it has been like this for "a few weeks." He reports intermittent a poor appetite, nausea diarrhea also, "for a few weeks," and denies any hematochezia, melena, vomiting or fevers. He is currently sweaty and tachycardic with a HR 110's. Past Medical/Surgical History Medical Problems: (1) Abdominal pain Status: Acute (2) Acute gastroenteritis Status: Acute (3) Alcohol withdrawal Status: Acute (4) Colitis Status: Acute (5) Dehydration Status: Acute (6) Dehydration Status: Acute (7) Diarrhea Status: Acute (8) Diffuse abdominal pain Status: Acute (9) Failure of outpatient treatment Status: Acute (10) Mood disorder Status: Acute (11) Transaminitis Status: Acute Past Medical History: 1. Increase alcohol intake 2. HTN 3. Hyperlipidemia 3. Hep C 4. Tobacco abuse. 5. CAD 6. Hyperlipidemia 7. C-diff 8. RBBB 9. Esophageal ulcer Past Surgical History: 1. Most recent EGD 01/12/16 Dr. Quintero: hiatus hernia,Normal esophagus and duodenum. 2. Prior EGD in 11/30/2013 Dr. Terrell:portal hypertensive gastropathy and an esophageal ulcer. 3. Most recent colonoscopy 01/12/16 Dr. Quinetro: - Sigmoid Diverticulosis,Four 3 to 7 mm polyps in the sigmoid colon.Many small polyps in the rectum. Rec: repeat c-scope in one year due to poor prep. Family History Diabetes mellitus BROTHER Hypertension Social History Smoking Status: Current Every Day Smoker Alcohol Use: heavy Drug Use: none Marital Status: Housing Status: lives with significant other Occupation Status: employed Allergies Coded Allergies: No Known Allergies (Unverified , 05/28/16) Current Medications Home Meds and Scripts Medications Dose Route/Sig Max Daily Dose Days Date Category No Active Prescriptions or Reported Medications Rx Review of Systems Constitutional: + problem reported (mild confusion), + sweats, No chills, No fever, No weakness, No weight loss Eyes: No eye pain, No redness ENT: No pain on swallowing, No sore throat, No trouble swallowing Respiratory: No cough, No dyspnea on exertion, No shortness of breath, No wheezing Cardiac: No chest pain, No edema, No palpitations Abdomen: + diarrhea, + pain, + problem reported (decreased appetite), + see HPI , No nausea, No vomiting Neuro: No balance problems, No memory loss, No numbness/tingling, No vertigo, No weakness Psych: No anxiety, No depression symptoms, No insomnia Heme: No abnormal bleeding/bruising, No night sweats Endo: + fatigue, No excessive thirst, No excessive urination Skin: No itch, No jaundice, No new/changing skin lesions, No rash Physical Exam Date Time Temp Pulse Resp B/P Pulse Ox O2 Delivery O2 Flow Rate FiO2 10/22/16 07:13 38.0 107 20 151/113 97 Nasal Cannula 2.0 10/22/16 06:07 37.5 105 18 151/104 97 Nasal Cannula 2.0 10/22/16 05:22 37.2 105 20 152/101 97 Nasal Cannula 2.0 10/22/16 04:03 36.8 114 22 141/101 92 Room Air 10/22/16 04:00 Room Air 10/22/16 03:00 111 22 129/91 94 Room Air 10/22/16 02:00 112 22 119/86 93 Room Air 10/22/16 01:00 117 22 131/86 93 Room Air 10/22/16 00:11 120 20 118/79 95 Room Air 10/21/16 23:59 Room Air 10/21/16 23:02 37.7 134 24 132/89 94 Room Air 10/21/16 22:34 130/85 10/21/16 22:00 134 26 137/106 10/21/16 19:45 36.9 130 26 104/103 97 Room Air 10/21/16 19:29 118 12 114/73 96 10/21/16 19:12 118 12 114/73 96 Room Air 10/21/16 18:03 121 20 128/107 96 Room Air 10/21/16 16:38 123 18 97 Room Air 10/21/16 15:22 106 10/21/16 15:12 18 119/88 Room Air 10/21/16 14:00 37.2 121 22 140/114 97 Room Air General Appearance: no apparent distress Eyes: normal inspection, EOMI Neck: supple, no adenopathy, thyroid normal Respiratory/Chest: chest non-tender, normal breath sounds, no accessory muscle use, + crackles (few at the bases) Cardiovascular: regular rate, rhythm, no JVD, no murmur Abdomen: normal bowel sounds, no organomegaly, + distended (mild), + tenderness (very tender over entire abdomen) Extremities: normal inspection, no pedal edema, normal capillary refill Neurologic/Psych: alert, normal mood/affect, + pertinent finding (tremor) Skin: normal color, no jaundice, warm/dry, no rash, + pertinent finding (red palms) Laboratory Results Last 24 Hours Test 10/21/16 14:35 10/22/16 00:10 10/22/16 06:03 White Blood Count 3.83 K/uL 3.12 K/uL Red Blood Count 4.40 M/uL 3.60 M/uL Hemoglobin 15.1 g/dL 11.9 g/dL Hematocrit 41.2 % 34.3 % Mean Corpuscular Volume 93.6 fL 95.3 fL Mean Corpuscular Hemoglobin 34.3 pg 33.1 pg Mean Corpuscular Hemoglobin Concent 36.7 g/dl 34.7 g/dl Platelet Count 59 K/uL 45 K/uL Mean Platelet Volume 10.3 fL 10.4 fL Neutrophils (%) (Auto) 58.4 % 67.7 % Lymphocytes (%) (Auto) 35.5 % 23.4 % Monocytes (%) (Auto) 5.5 % 7.7 % Eosinophils (%) (Auto) 0.0 % 0.6 % Basophils (%) (Auto) 0.3 % 0.3 % Neutrophils # (Auto) 2.24 K/uL 2.11 K/uL Lymphocytes # (Auto) 1.36 K/uL 0.73 K/uL Monocytes # (Auto) 0.21 K/uL 0.24 K/uL Eosinophils # (Auto) 0.00 K/uL 0.02 K/uL Basophils # (Auto) 0.01 K/uL 0.01 K/uL RDW Standard Deviation 48.8 fL 50.7 fL RDW Coefficient of Variation 14.3 % 14.5 % Immature Granulocyte % (Auto) 0.3 % 0.3 % Immature Granulocyte # (Auto) 0.01 K/uL 0.01 K/uL Platelet Estimate DECREASED Prothrombin Time 11.2 SECONDS 11.4 SECONDS Prothromb Time International Ratio 1.0 1.1 Activated Partial Thromboplast Time 26.2 SECONDS 25.4 SECONDS Partial Thromboplastin Ratio 1.0 1.0 Sodium Level 140 mmol/L 144 mmol/L Potassium Level 3.4 mmol/L 3.4 mmol/L Chloride Level 104 mmol/L 109 mmol/L Carbon Dioxide Level 24 mmol/L 22 mmol/L Anion Gap 12.0 mmol/L 13.0 mmol/L Blood Urea Nitrogen 10 mg/dl 10 mg/dl Creatinine 0.91 mg/dl 0.78 mg/dl Est Creatinine Clear Calc Drug Dose 99.9 ml/min 118.4 ml/min Estimated GFR () 110.3 118.6 Estimated GFR (Non- 95.2 102.3 BUN/Creatinine Ratio 11.4 13.1 Random Glucose 114 mg/dl 74 mg/dl Calcium Level 7.3 mg/dl 6.8 mg/dl Magnesium Level 2.0 mg/dl Total Bilirubin 1.6 mg/dl 1.6 mg/dl Direct Bilirubin 0.9 mg/dl 1.0 mg/dl Aspartate Amino Transf (AST/SGOT) 581 U/L 424 U/L Alanine Aminotransferase (ALT/SGPT) 238 U/L 197 U/L Alkaline Phosphatase 227 U/L 200 U/L Total Protein 6.9 gm/dl 5.5 gm/dl Albumin 3.1 gm/dl 2.5 gm/dl Globulin 3.8 gm/dl 3.0 gm/dl Albumin/Globulin Ratio 0.8 0.8 Lipase 281 U/L Thyroid Stimulating Hormone (TSH) 3.450 uIu/ml Salicylates Level mg/dl Acetaminophen Level ug/ml Ethyl Alcohol mg/dL 358.0 mg/dl Urine Color DK YELLOW Urine Appearance CLEAR Urine pH 6.0 Urine Specific [place] > 1.045 Urine Protein NEG Urine Glucose (UA) NEG Urine Ketones TRACE Urine Occult Blood NEG Urine Nitrite NEG Urine Bilirubin NEG Urine Urobilinogen POS Urine Leukocyte Esterase NEG Urine WBC (Auto) 1-5 /hpf Urine RBC (Auto) 0-4 /hpf Urine Hyaline Casts (Auto) 1-5 /lpf Urine Epithelial Cells (Auto) 5-10 /lpf Urine Bacteria (Auto) NEG Impression Patient is a 56 year old male admitted for suicidal ideations who c/o diffuse abdominal pain and has mildly distended, very tender abdomen. CT with question of IBD. This should be ruled out but is unlikely in light of recent colonoscopy w/o evidence of IBD. More likely his abdominal pain represents alcoholic gastritis and duodenitis. Plan Plan: 1. After the pt has detoxed, then would recommend colonoscopy. 2. Regarding alcoholic liver disease, he may have early cirrhosis as evidence by mention of portal hypertensive gastropathy in 2014 as well as current low platelet level of 45. His mild confusion is more likely from recent alcohol intake than from hepatic encephalopathy but will need to reassess as he continues to detox. His transaminitis represents alcoholic hepatitis. Bilirubin and PT/INR are normal and Maddrey's Discriminant Function score is low. No steroids are indicated. 3. Complete alcohol abstention - will continue to discuss with patient. 4. 2 gram sodium diet. No plan for GI procedures this weekend, so OK for normal consistency but will need aspiration precautions. 5. Appreciate primary services management of alcohol withdrawal. 6. Will need eventual OP GI f/u for alcoholic liver disease. I have seen , examined and agree with the plan as outlined by DENNYS Nascimento as above. -exam reveals soft abd -Now not having pain -Lipase and CT scan do not suggest pancreatitis -Etoh W/D care -Consider repeat Colon, given suboptimal prep prior,during hospitalization per his clinical course
[2016-10-22] MEDS: PANTOprazole INJ 40 MG in SYRINGE 0 ML IV SCH ×2 (09:21→20:51)
[2016-10-22] MEDS: MULTIVITAMIN TAB PO SCH (09:21)
[2016-10-22] MEDS: NICOTINE 14 MG/24 HR TDSY TD SCH (09:21)
[2016-10-22] MEDS: THIAMINE HCL 100 MG TAB PO SCH (09:21)
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
--- NOTE | 2016-10-22 17:49 | Progress Note ---
Subjective Date of Service: Oct 22, 2016. Subjective Pt evaluation today including: conversation w/ patient, conversation w/ family , physical exam, lab review, review of studies, review of inpatient medication list Saw/examined the patient in room 205 is in the room with the patient She states that the patient lost his job on September 24, has been depressed and drinking heavily since then Patient feels shaky, tremulousness, and seeing hallucinations He is very anxious and eager to go home, not amenable to inpatient psych, not amenable to inpatient EtOH rehab He is agreeable to go to AA meetings Has a hx. of alcohol abuse, but tells me he had been 16 years sober at one point Problem List Medical Problems: (1) Abdominal pain Status: Acute (2) Acute gastroenteritis Status: Acute (3) Alcohol withdrawal Status: Acute (4) Colitis Status: Acute (5) Dehydration Status: Acute (6) Dehydration Status: Acute (7) Diarrhea Status: Acute (8) Diffuse abdominal pain Status: Acute (9) Failure of outpatient treatment Status: Acute (10) Mood disorder Status: Acute (11) Transaminitis Status: Acute Review of Systems Constitutional: + weakness Neurologic: No memory loss, No paralysis Psychiatric: + anxiety, + depression symptoms, + problem reported (tremors; hallucinations), + substance abuse (alcohol) Medications Current Inpatient Medications Medications (Trade) Dose Ordered Sig/Johnny Route Start Time Stop Time Status Last Admin Dose Admin Ioversol (Optiray 320) 125 ml UD PRN IV 10/21/16 15:30 10/25/16 15:29 Nicotine (Nicoderm Cq 14MG Patch) 1 patch NOW TD 10/21/16 15:30 11/20/16 15:29 Ondansetron HCl (Zofran Inj) 4 mg Q6H PRN IV 10/21/16 18:15 11/20/16 18:14 Thiamine HCl (Vitamin B-1 Tab) 100 mg QAM PO 10/22/16 09:00 11/21/16 08:59 10/22/16 09:21 100 MG Folic Acid (Folvite Tab) 1 mg QAM PO 10/22/16 09:00 11/21/16 08:59 10/22/16 09:21 1 MG Multivitamins (Multivitamin Tab) 1 tab QAM PO 10/22/16 09:00 11/21/16 08:59 10/22/16 09:21 1 TAB Nicotine (Nicoderm Cq 14MG Patch) 1 patch QAM TD 10/22/16 09:00 11/21/16 08:59 10/22/16 09:21 1 PATCH Miscellaneous (Remove Nicoderm Patch) 1 ea HS N/A 10/21/16 21:00 11/20/16 20:59 10/21/16 21:00 1 EA Morphine Sulfate 3 mg 3 mg Q4H PRN IV 10/21/16 18:30 11/04/16 18:29 Pantoprazole Sodium 40 mg/ Syringe 10 ml @ 5 mls/min DAILY@09,21 IV 10/21/16 21:00 11/20/16 20:59 10/22/16 09:21 5 MLS/MIN Sodium Chloride (Nss 1000ml) 1,000 ml @ 125 mls/hr Q8H IV 10/21/16 18:30 11/20/16 18:29 10/22/16 10:38 125 MLS/HR Al Hydroxide/Mg Hydroxide (Maalox Susp) 30 ml Q6H PRN PO 10/21/16 18:45 11/20/16 18:44 Lorazepam (Ativan Inj) 1 mg Q1H PRN IV 10/21/16 18:45 11/20/16 18:44 10/22/16 16:37 1 MG Chlordiazepoxide (Librium Cap) 25 mg Q6@0600,1200,1800,2200 PO 10/21/16 22:00 10/22/16 18:01 10/22/16 11:55 25 MG Chlordiazepoxide (Librium Cap) 25 mg Q8H PO 10/23/16 00:00 10/23/16 16:01 Chlordiazepoxide (Librium Cap) 10 mg Q8H PO 10/24/16 00:00 10/24/16 16:01 Chlordiazepoxide (Librium Cap) 5 mg Q12H PO 10/25/16 06:00 10/25/16 18:01 Objective Vital Signs Date Time Temp Pulse Resp B/P Pulse Ox O2 Delivery O2 Flow Rate FiO2 10/22/16 16:00 Nasal Cannula 2.0 10/22/16 15:09 36.8 101 22 149/105 95 Room Air 10/22/16 13:03 111 20 154/103 10/22/16 12:00 Nasal Cannula 2.0 10/22/16 11:27 110 20 145/97 96 Room Air 10/22/16 10:31 102 21 130/102 10/22/16 09:12 36.7 112 22 164/118 98 10/22/16 08:14 37.3 116 22 169/116 98 10/22/16 08:00 Nasal Cannula 2.0 10/22/16 07:13 38.0 107 20 151/113 97 Nasal Cannula 2.0 10/22/16 06:07 37.5 105 18 151/104 97 Nasal Cannula 2.0 10/22/16 05:22 37.2 105 20 152/101 97 Nasal Cannula 2.0 10/22/16 04:03 36.8 114 22 141/101 92 Room Air 10/22/16 04:00 Room Air 10/22/16 03:00 111 22 129/91 94 Room Air 10/22/16 02:00 112 22 119/86 93 Room Air 10/22/16 01:00 117 22 131/86 93 Room Air 10/22/16 00:11 120 20 118/79 95 Room Air 10/21/16 23:59 Room Air 10/21/16 23:02 37.7 134 24 132/89 94 Room Air 10/21/16 22:34 130/85 10/21/16 22:00 134 26 137/106 10/21/16 19:45 36.9 130 26 104/103 97 Room Air 10/21/16 19:29 118 12 114/73 96 10/21/16 19:12 118 12 114/73 96 Room Air 10/21/16 18:03 121 20 128/107 96 Room Air Physical Exam General Appearance: + mild distress (anxious; slightly agitated; slurring speech), + obese Respiratory/Chest: lungs clear, normal breath sounds, no respiratory distress, no accessory muscle use Cardiovascular: no edema, no murmur, + tachycardia Abdomen: soft, + tenderness (mild tenderness) Extremities: normal inspection, no pedal edema Neurologic/Psychiatric: alert, oriented x 3, + depressed affect Laboratory Results Last 24 Hours Test 10/22/16 00:10 10/22/16 06:03 Urine Color DK YELLOW Urine Appearance CLEAR Urine pH 6.0 Urine Specific [place] > 1.045 Urine Protein NEG Urine Glucose (UA) NEG Urine Ketones TRACE Urine Occult Blood NEG Urine Nitrite NEG Urine Bilirubin NEG Urine Urobilinogen POS Urine Leukocyte Esterase NEG Urine WBC (Auto) 1-5 /hpf Urine RBC (Auto) 0-4 /hpf Urine Hyaline Casts (Auto) 1-5 /lpf Urine Epithelial Cells (Auto) 5-10 /lpf Urine Bacteria (Auto) NEG White Blood Count 3.12 K/uL Red Blood Count 3.60 M/uL Hemoglobin 11.9 g/dL Hematocrit 34.3 % Mean Corpuscular Volume 95.3 fL Mean Corpuscular Hemoglobin 33.1 pg Mean Corpuscular Hemoglobin Concent 34.7 g/dl Platelet Count 45 K/uL Mean Platelet Volume 10.4 fL Neutrophils (%) (Auto) 67.7 % Lymphocytes (%) (Auto) 23.4 % Monocytes (%) (Auto) 7.7 % Eosinophils (%) (Auto) 0.6 % Basophils (%) (Auto) 0.3 % Neutrophils # (Auto) 2.11 K/uL Lymphocytes # (Auto) 0.73 K/uL Monocytes # (Auto) 0.24 K/uL Eosinophils # (Auto) 0.02 K/uL Basophils # (Auto) 0.01 K/uL RDW Standard Deviation 50.7 fL RDW Coefficient of Variation 14.5 % Immature Granulocyte % (Auto) 0.3 % Immature Granulocyte # (Auto) 0.01 K/uL Prothrombin Time 11.4 SECONDS Prothromb Time International Ratio 1.1 Activated Partial Thromboplast Time 25.4 SECONDS Partial Thromboplastin Ratio 1.0 Sodium Level 144 mmol/L Potassium Level 3.4 mmol/L Chloride Level 109 mmol/L Carbon Dioxide Level 22 mmol/L Anion Gap 13.0 mmol/L Blood Urea Nitrogen 10 mg/dl Creatinine 0.78 mg/dl Est Creatinine Clear Calc Drug Dose 118.4 ml/min Estimated GFR () 118.6 Estimated GFR (Non- 102.3 BUN/Creatinine Ratio 13.1 Random Glucose 74 mg/dl Calcium Level 6.8 mg/dl Total Bilirubin 1.6 mg/dl Direct Bilirubin 1.0 mg/dl Aspartate Amino Transf (AST/SGOT) 424 U/L Alanine Aminotransferase (ALT/SGPT) 197 U/L Alkaline Phosphatase 200 U/L Total Protein 5.5 gm/dl Albumin 2.5 gm/dl Globulin 3.0 gm/dl Albumin/Globulin Ratio 0.8 Assessment and Plan This is a 56 year old male with PMH of alcohol abuse, HTN, tobacco abuse presents after brought him in due to possible suicidal ideation Alcohol Abuse and Withdrawal patient going through withdrawal symptoms tremors at rest, hallucinations does have a history of DTs ativan PRN received banana bag in the ER; now on multivitamin, folate, thiamine Magnesium level within normal limits Ativan PRN Librium taper Patient agreeable to outpatient AA meetings; refusing inpatient EtOH rehab Depression w/ Suicidal Ideation appreciate psych evaluation one-to-one observation placed due to suicidal ideation plan is to start SSRI possible inpatient vs. outpatient psych eval Transaminitis appreciate GI input the plan for this patient is to have colonoscopy after detox can be done as an outpatient no other w/up necessary Hypokalemia, resolved Thrombocytopenia possibly to EtOH abuse alcoholic liver cirrhosis? monitor and avoid antiplatelets for now Tobacco Abuse Nicotine patch will speak about tobacco cessation DVT ppx SCDs FULL CODE
[2016-10-22] MEDS ORDERED: GABAPENTIN 600MG Q8H DOSE PO SCH (22:00)
[2016-10-23] VITALS (7 sets, daily range): BP systolic 106–178; BP diastolic 83–114; PULSE 75–90; TEMP 36.6–36.9; O2SAT 94–98
[2016-10-23] MEDS ORDERED: CHLORDIAZEPOXIDE 10MG Q8H DOSE PO SCH
[2016-10-23] MEDS: CHLORDIAZEPOXIDE 25MG Q8H DOSE PO SCH ×3 (00:05→16:30)
[2016-10-23] MEDS: SODIUM CHLORIDE 0.9% 1000ML 1,000 ML IV SCH ×3 (02:12→18:16)
[2016-10-23] MEDS: LORAZEPAM 2 MG/ML 1 ML VIAL IV PRN ×11 (02:12→23:40)
[2016-10-23 06:17] LABS: MEAN CELL VOLUME 94.1 fL (80-100); MEAN CORPUSCULAR HEMOGLOBIN 33.2 pg (25-34); MEAN CORPUSCULAR HGB CONC 35.3 g/dl (32-36); WHITE BLOOD COUNT 3.53 K/uL (4.8-10.8)
[2016-10-23 06:27] LABS: MEAN PLATELET VOLUME 11.1 fL (7.4-10.4); PLATELET COUNT 43 K/uL (130-400)
[2016-10-23 06:59] LABS: BUN/CREATININE RATIO 6.8 (10-20); CALCIUM 7.1 mg/dl (8.5-10.1); CREATININE 0.75 mg/dl (0.60-1.40); MAGNESIUM 1.6 mg/dl (1.8-2.4); POTASSIUM 3.4 mmol/L (3.5-5.1)
[2016-10-23] MEDS: MULTIVITAMIN TAB PO SCH (07:38)
[2016-10-23] MEDS: THIAMINE HCL 100 MG TAB PO SCH (07:38)
[2016-10-23] MEDS: NICOTINE 14 MG/24 HR TDSY TD SCH (07:39)
[2016-10-23] MEDS: PANTOprazole INJ 40 MG in SYRINGE 0 ML IV SCH (08:50)
--- NOTE | 2016-10-23 10:56 | Progress Note ---
Subjective Date of Service: Oct 23, 2016. Subjective Pt evaluation today including: conversation w/ patient, physical exam, lab review, review of studies, review of inpatient medication list Saw/examined the patient in room 205 He is doing okay today Overnight, had some hallucinations, seeing elephants, and thought a window was a two way mirror still has some resting tremors very eager to go home by Tuesday Problem List Medical Problems: (1) Abdominal pain Status: Acute (2) Acute gastroenteritis Status: Acute (3) Alcohol withdrawal Status: Acute (4) Colitis Status: Acute (5) Dehydration Status: Acute (6) Dehydration Status: Acute (7) Diarrhea Status: Acute (8) Diffuse abdominal pain Status: Acute (9) Failure of outpatient treatment Status: Acute (10) Mood disorder Status: Acute (11) Transaminitis Status: Acute Review of Systems Constitutional: No chills, No fever Respiratory: No cough, No shortness of breath, No sputum Cardiac: No chest pain Abdomen: No diarrhea, No nausea, No pain, No vomiting Neurologic: + problem reported (reported hallucinations, tremors at rest, anxiety), No memory loss Medications Current Inpatient Medications Medications (Trade) Dose Ordered Sig/Johnny Route Start Time Stop Time Status Last Admin Dose Admin Ioversol (Optiray 320) 125 ml UD PRN IV 10/21/16 15:30 10/25/16 15:29 Nicotine (Nicoderm Cq 14MG Patch) 1 patch NOW TD 10/21/16 15:30 11/20/16 15:29 Ondansetron HCl (Zofran Inj) 4 mg Q6H PRN IV 10/21/16 18:15 11/20/16 18:14 Thiamine HCl (Vitamin B-1 Tab) 100 mg QAM PO 10/22/16 09:00 11/21/16 08:59 10/23/16 07:38 100 MG Folic Acid (Folvite Tab) 1 mg QAM PO 10/22/16 09:00 11/21/16 08:59 10/23/16 07:39 1 MG Multivitamins (Multivitamin Tab) 1 tab QAM PO 10/22/16 09:00 11/21/16 08:59 10/23/16 07:38 1 TAB Nicotine (Nicoderm Cq 14MG Patch) 1 patch QAM TD 10/22/16 09:00 11/21/16 08:59 10/23/16 07:39 1 PATCH Miscellaneous (Remove Nicoderm Patch) 1 ea HS N/A 10/21/16 21:00 11/20/16 20:59 10/22/16 20:51 1 EA Morphine Sulfate 3 mg 3 mg Q4H PRN IV 10/21/16 18:30 11/04/16 18:29 Pantoprazole Sodium 40 mg/ Syringe 10 ml @ 5 mls/min DAILY@09,21 IV 10/21/16 21:00 11/20/16 20:59 10/23/16 08:50 5 MLS/MIN Sodium Chloride (Nss 1000ml) 1,000 ml @ 125 mls/hr Q8H IV 10/21/16 18:30 11/20/16 18:29 10/23/16 09:58 125 MLS/HR Al Hydroxide/Mg Hydroxide (Maalox Susp) 30 ml Q6H PRN PO 10/21/16 18:45 11/20/16 18:44 Lorazepam (Ativan Inj) 1 mg Q1H PRN IV 10/21/16 18:45 11/20/16 18:44 10/23/16 09:58 1 MG Chlordiazepoxide (Librium Cap) 25 mg Q8H PO 10/23/16 00:00 10/23/16 16:01 10/23/16 07:38 25 MG Chlordiazepoxide (Librium Cap) 10 mg Q8H PO 10/24/16 00:00 10/24/16 16:01 Chlordiazepoxide 5 mg 5 mg Q12H PO 10/25/16 06:00 10/25/16 18:01 Potassium Chloride 10 meq/ Prmx 100 ml @ 100 mls/hr TODAY@1100 IV 10/23/16 11:00 10/23/16 11:59 Magnesium Sulfate/ Prmx (Magnesium Sulfate/Premixed D5W) 100 ml @ 100 mls/hr TODAY@1100 IV 10/23/16 11:00 10/23/16 11:59 Objective Vital Signs Date Time Temp Pulse Resp B/P Pulse Ox O2 Delivery O2 Flow Rate FiO2 10/23/16 08:00 Room Air 10/23/16 07:00 36.9 78 22 138/92 98 Room Air 10/23/16 04:00 Nasal Cannula 2.0 10/23/16 03:40 36.9 78 22 106/83 95 Room Air 10/23/16 00:00 Nasal Cannula 2.0 10/22/16 22:55 36.9 74 21 117/73 94 Room Air 10/22/16 20:00 Nasal Cannula 2.0 10/22/16 18:59 36.8 77 24 133/97 97 Room Air 10/22/16 16:00 Nasal Cannula 2.0 10/22/16 15:09 36.8 101 22 149/105 95 Room Air 10/22/16 13:03 111 20 154/103 10/22/16 12:00 Nasal Cannula 2.0 10/22/16 11:27 110 20 145/97 96 Room Air Physical Exam General Appearance: no apparent distress, + pertinent finding (resting tremor) Respiratory/Chest: lungs clear, normal breath sounds, no respiratory distress, no accessory muscle use Cardiovascular: regular rate, rhythm, no edema, no murmur Abdomen: normal bowel sounds, non tender, soft Laboratory Results Last 24 Hours Test 10/23/16 05:58 White Blood Count 3.53 K/uL Red Blood Count 3.40 M/uL Hemoglobin 11.3 g/dL Hematocrit 32.0 % Mean Corpuscular Volume 94.1 fL Mean Corpuscular Hemoglobin 33.2 pg Mean Corpuscular Hemoglobin Concent 35.3 g/dl RDW Standard Deviation 48.9 fL RDW Coefficient of Variation 14.3 % Platelet Count 43 K/uL Mean Platelet Volume 11.1 fL Sodium Level 142 mmol/L Potassium Level 3.4 mmol/L Chloride Level 110 mmol/L Carbon Dioxide Level 23 mmol/L Anion Gap 9.0 mmol/L Blood Urea Nitrogen 5 mg/dl Creatinine 0.75 mg/dl Est Creatinine Clear Calc Drug Dose 123.1 ml/min Estimated GFR () 120.5 Estimated GFR (Non- 104.0 BUN/Creatinine Ratio 6.8 Random Glucose 109 mg/dl Calcium Level 7.1 mg/dl Magnesium Level 1.6 mg/dl Assessment and Plan This is a 56 year old male with PMH of alcohol abuse, HTN, tobacco abuse presents after brought him in due to possible suicidal ideation Alcohol Abuse and Withdrawal 2/4 still requiring ativan almost every hour due to agitation continue thiamine, folate, multivitamin, magnesium still try to taper Ativan 2/3 patient going through withdrawal symptoms tremors at rest, hallucinations does have a history of DTs ativan PRN received banana bag in the ER; now on multivitamin, folate, thiamine Magnesium level within normal limits Ativan PRN Librium taper Patient agreeable to outpatient AA meetings; refusing inpatient EtOH rehab Depression w/ Suicidal Ideation appreciate psych evaluation one-to-one observation placed due to suicidal ideation plan is to start SSRI possible inpatient vs. outpatient psych eval Transaminitis appreciate GI input the plan for this patient is to have colonoscopy after detox can be done as an outpatient no other w/up necessary Hypokalemia, resolved Thrombocytopenia possibly to EtOH abuse alcoholic liver cirrhosis? monitor and avoid antiplatelets for now Tobacco Abuse Nicotine patch will speak about tobacco cessation DVT ppx SCDs FULL CODE
[2016-10-23] MEDS ORDERED: POTASSIUM CHLR 10 MEQ / WTR 10 MEQ in PREMIXED WATER 100 ML IV SCH (11:00)
[2016-10-23] MEDS ORDERED: MAGNESIUM SULFATE 1GM / D5W 1 GM in PREMIXED IN D5W 100 ML IV SCH (11:00)
[2016-10-23 16:14] LABS: REFERENCE QUEST TEST REPORT
[2016-10-23] MEDS: PANTOprazole SOD 40 MG TAB PO SCH (21:29)
[2016-10-23] MEDS: METRONIDAZOLE 500 MG TAB PO SCH (21:29)
[2016-10-23] MEDS: CHLORDIAZEPOXIDE 10MG Q8H DOSE PO SCH (23:53)
[2016-10-24] VITALS (7 sets, daily range): BP systolic 140–173; BP diastolic 94–119; PULSE 66–91; TEMP 36.4–36.9; O2SAT 91–98
[2016-10-24] MEDS ORDERED: GABAPENTIN 600MG Q12H DOSE PO SCH
[2016-10-24] MEDS: SODIUM CHLORIDE 0.9% 1000ML 1,000 ML IV SCH ×3 (02:50→18:04)
[2016-10-24] MEDS: LORAZEPAM 2 MG/ML 1 ML VIAL IV PRN ×5 (02:51→14:09)
[2016-10-24] MEDS ORDERED: CHLORDIAZEPOXIDE 5MG Q12H DOSE PO SCH (06:00)
[2016-10-24 06:19] LABS: HEMATOCRIT 32.8 % (42-52); MEAN CELL VOLUME 94.3 fL (80-100); MEAN CORPUSCULAR HEMOGLOBIN 32.8 pg (25-34); MEAN CORPUSCULAR HGB CONC 34.8 g/dl (32-36); RED BLOOD COUNT 3.48 M/uL (4.7-6.1); WHITE BLOOD COUNT 4.39 K/uL (4.8-10.8)
[2016-10-24 06:21] LABS: MEAN PLATELET VOLUME 11.5 fL (7.4-10.4); PLATELET COUNT 62 K/uL (130-400)
[2016-10-24 06:43] LABS: BUN/CREATININE RATIO 2.1 (10-20); CALCIUM 7.2 mg/dl (8.5-10.1); CREATININE 0.73 mg/dl (0.60-1.40); MAGNESIUM 1.5 mg/dl (1.8-2.4); POTASSIUM 3.2 mmol/L (3.5-5.1)
[2016-10-24 06:46] LABS: ALB/GLOB RATIO 0.8 (0.9-2)
[2016-10-24] MEDS: CHLORDIAZEPOXIDE 10MG Q8H DOSE PO SCH ×2 (08:44→16:05)
[2016-10-24] MEDS: PANTOprazole SOD 40 MG TAB PO SCH ×2 (08:45→20:20)
[2016-10-24] MEDS: METRONIDAZOLE 500 MG TAB PO SCH ×3 (08:45→20:20)
[2016-10-24] MEDS: MULTIVITAMIN TAB PO SCH (08:45)
[2016-10-24] MEDS: THIAMINE HCL 100 MG TAB PO SCH (08:45)
[2016-10-24] MEDS: NICOTINE 14 MG/24 HR TDSY TD SCH (08:48)
[2016-10-24] MEDS: MAGNESIUM SULFATE 1GM / D5W 1 GM in PREMIXED IN D5W 100 ML IV SCH ×2 (09:00→10:22)
--- NOTE | 2016-10-24 09:27 | Progress Note ---
Subjective Date of Service: Oct 24, 2016. Subjective Pt evaluation today including: conversation w/ patient, physical exam, lab review, review of studies, review of inpatient medication list Saw/examined the patient in room 205 Anxious and states he wants to go home today and does not want to stay still requiring Ativan around every 2 hours +tremors at baseline +shaky/unsteady when standing Problem List Medical Problems: (1) Abdominal pain Status: Acute (2) Acute gastroenteritis Status: Acute (3) Alcohol withdrawal Status: Acute (4) Colitis Status: Acute (5) Dehydration Status: Acute (6) Dehydration Status: Acute (7) Diarrhea Status: Acute (8) Diffuse abdominal pain Status: Acute (9) Failure of outpatient treatment Status: Acute (10) Mood disorder Status: Acute (11) Transaminitis Status: Acute Review of Systems Patient is denying all symptoms Medications Current Inpatient Medications Medications (Trade) Dose Ordered Sig/Johnny Route Start Time Stop Time Status Last Admin Dose Admin Ioversol (Optiray 320) 125 ml UD PRN IV 10/21/16 15:30 10/25/16 15:29 Ondansetron HCl (Zofran Inj) 4 mg Q6H PRN IV 10/21/16 18:15 11/20/16 18:14 Thiamine HCl (Vitamin B-1 Tab) 100 mg QAM PO 10/22/16 09:00 11/21/16 08:59 10/24/16 08:45 100 MG Folic Acid (Folvite Tab) 1 mg QAM PO 10/22/16 09:00 11/21/16 08:59 10/24/16 08:45 1 MG Multivitamins (Multivitamin Tab) 1 tab QAM PO 10/22/16 09:00 11/21/16 08:59 10/24/16 08:45 1 TAB Nicotine (Nicoderm Cq 14MG Patch) 1 patch QAM TD 10/22/16 09:00 11/21/16 08:59 10/24/16 08:48 1 PATCH Miscellaneous (Remove Nicoderm Patch) 1 ea HS N/A 10/21/16 21:00 11/20/16 20:59 10/23/16 21:30 1 EA Morphine Sulfate 3 mg 3 mg Q4H PRN IV 10/21/16 18:30 11/04/16 18:29 Sodium Chloride (Nss 1000ml) 1,000 ml @ 125 mls/hr Q8H IV 10/21/16 18:30 11/20/16 18:29 10/24/16 02:50 125 MLS/HR Al Hydroxide/Mg Hydroxide (Maalox Susp) 30 ml Q6H PRN PO 10/21/16 18:45 11/20/16 18:44 Lorazepam (Ativan Inj) 1 mg Q1H PRN IV 10/21/16 18:45 11/20/16 18:44 10/24/16 06:39 1 MG Chlordiazepoxide (Librium Cap) 10 mg Q8H PO 10/24/16 00:00 10/24/16 16:01 10/24/16 08:44 10 MG Chlordiazepoxide (Librium Cap) 5 mg Q12H PO 10/25/16 06:00 10/25/16 18:01 Pantoprazole Sodium (Protonix Tab) 40 mg BID PO 10/23/16 21:00 11/22/16 20:59 10/24/16 08:45 40 MG Metronidazole 500 mg 500 mg TID PO 10/23/16 21:00 11/06/16 20:59 10/24/16 08:45 500 MG Potassium Chloride 10 meq/ Prmx 100 ml @ 100 mls/hr Q1H IV 10/24/16 09:00 10/24/16 10:59 Magnesium Sulfate/ Prmx (Magnesium Sulfate/Premixed D5W) 100 ml @ 100 mls/hr Q1H IV 10/24/16 09:00 10/24/16 10:59 Objective Vital Signs Date Time Temp Pulse Resp B/P Pulse Ox O2 Delivery O2 Flow Rate FiO2 10/24/16 07:30 Room Air 10/24/16 07:09 36.7 83 18 173/103 95 10/24/16 04:00 Room Air 10/24/16 03:12 36.9 66 19 162/101 96 Room Air 10/24/16 00:14 162/106 10/24/16 00:00 Room Air 10/23/16 22:57 36.6 75 18 178/114 94 Room Air 10/23/16 20:00 Room Air 10/23/16 19:10 36.8 82 19 149/95 97 Room Air 10/23/16 16:00 95 Room Air 10/23/16 14:41 36.6 89 26 143/99 95 Room Air 10/23/16 12:10 Room Air 10/23/16 11:18 36.8 90 18 149/99 95 Physical Exam General Appearance: no apparent distress Respiratory/Chest: lungs clear, normal breath sounds, no respiratory distress, no accessory muscle use Cardiovascular: regular rate, rhythm, no edema, no murmur Extremities: normal inspection, no pedal edema Neurologic/Psychiatric: + depressed affect, + pertinent finding (+tremulousness ) Laboratory Results Last 24 Hours Test 10/24/16 05:55 White Blood Count 4.39 K/uL Red Blood Count 3.48 M/uL Hemoglobin 11.4 g/dL Hematocrit 32.8 % Mean Corpuscular Volume 94.3 fL Mean Corpuscular Hemoglobin 32.8 pg Mean Corpuscular Hemoglobin Concent 34.8 g/dl RDW Standard Deviation 49.4 fL RDW Coefficient of Variation 14.4 % Platelet Count 62 K/uL Mean Platelet Volume 11.5 fL Nucleated RBC Absolute Count (auto) 0.03 K/uL Nucleated Red Blood Cells % 0.7 % Sodium Level 143 mmol/L Potassium Level 3.2 mmol/L Chloride Level 110 mmol/L Carbon Dioxide Level 23 mmol/L Anion Gap 10.0 mmol/L Blood Urea Nitrogen 2 mg/dl Creatinine 0.73 mg/dl Est Creatinine Clear Calc Drug Dose 128.9 ml/min Estimated GFR () 121.9 Estimated GFR (Non- 105.2 BUN/Creatinine Ratio 2.1 Random Glucose 117 mg/dl Calcium Level 7.2 mg/dl Magnesium Level 1.5 mg/dl Total Bilirubin 2.0 mg/dl Aspartate Amino Transf (AST/SGOT) 304 U/L Alanine Aminotransferase (ALT/SGPT) 197 U/L Alkaline Phosphatase 217 U/L Total Protein 5.8 gm/dl Albumin 2.5 gm/dl Globulin 3.3 gm/dl Albumin/Globulin Ratio 0.8 Assessment and Plan This is a 56 year old male with PMH of alcohol abuse, HTN, tobacco abuse presents after brought him in due to possible suicidal ideation Alcohol Abuse and Withdrawal 10/24 continue thiamine, folate, multivitamin continue to replace Mag still going through withdrawal and requiring Ativan q2 hours wants to sign out AMA will await psych input 2 still requiring ativan almost every hour due to agitation continue thiamine, folate, multivitamin, magnesium still try to taper Ativan 2/3 patient going through withdrawal symptoms tremors at rest, hallucinations does have a history of DTs ativan PRN received banana bag in the ER; now on multivitamin, folate, thiamine Magnesium level within normal limits Ativan PRN Librium taper Patient agreeable to outpatient AA meetings; refusing inpatient EtOH rehab Depression w/ Suicidal Ideation appreciate psych evaluation one-to-one observation placed due to suicidal ideation plan is to start SSRI possible inpatient vs. outpatient psych eval C. Diff Infection patient positive for C. diff started on flagyl total of 14 days denies diarrhea symptoms Transaminitis appreciate GI input the plan for this patient is to have colonoscopy after detox can be done as an outpatient no other w/up necessary Hypokalemia, resolved Thrombocytopenia possibly to EtOH abuse alcoholic liver cirrhosis? monitor and avoid antiplatelets for now Tobacco Abuse Nicotine patch will speak about tobacco cessation DVT ppx SCDs FULL CODE
[2016-10-24] MEDS: POTASSIUM CHLR 10 MEQ / WTR 10 MEQ in PREMIXED WATER 100 ML IV SCH ×2 (11:25→12:42)
[2016-10-25] VITALS (9 sets, daily range): BP systolic 136–179; BP diastolic 58–118; PULSE 64–103; TEMP 36.3–36.8; O2SAT 94–98
[2016-10-25] MEDS: SODIUM CHLORIDE 0.9% 1000ML 1,000 ML IV SCH ×4 (05:25→23:23)
[2016-10-25] MEDS: CHLORDIAZEPOXIDE 5MG Q12H DOSE PO SCH ×2 (05:31→17:59)
[2016-10-25 05:54] LABS: HEMATOCRIT 33.4 % (42-52); MEAN CELL VOLUME 94.9 fL (80-100); MEAN CORPUSCULAR HEMOGLOBIN 33.2 pg (25-34); RED BLOOD COUNT 3.52 M/uL (4.7-6.1); WHITE BLOOD COUNT 4.93 K/uL (4.8-10.8)
[2016-10-25 06:16] LABS: MEAN PLATELET VOLUME 10.8 fL (7.4-10.4); PLATELET COUNT 90 K/uL (130-400)
[2016-10-25 06:24] LABS: BUN/CREATININE RATIO 1.9 (10-20); CALCIUM 7.9 mg/dl (8.5-10.1); CREATININE 0.74 mg/dl (0.60-1.40); MAGNESIUM 1.7 mg/dl (1.8-2.4); POTASSIUM 3.1 mmol/L (3.5-5.1)
[2016-10-25] MEDS: LORAZEPAM 2 MG/ML 1 ML VIAL IV PRN ×4 (07:34→20:05)
[2016-10-25] MEDS: METRONIDAZOLE 500 MG TAB PO SCH ×3 (07:34→21:06)
[2016-10-25] MEDS: NICOTINE 14 MG/24 HR TDSY TD SCH (07:35)
[2016-10-25] MEDS: THIAMINE HCL 100 MG TAB PO SCH (07:35)
[2016-10-25] MEDS: PANTOprazole SOD 40 MG TAB PO SCH ×2 (07:35→21:06)
[2016-10-25] MEDS: MULTIVITAMIN TAB PO SCH (07:36)
[2016-10-25] MEDS: MAGNESIUM SULFATE 1GM / D5W 1 GM in PREMIXED IN D5W 100 ML IV SCH ×2 (08:23→10:23)
[2016-10-25] MEDS: POTASSIUM CHLR 10 MEQ / WTR 10 MEQ in PREMIXED WATER 100 ML IV SCH ×2 (08:23→10:23)
--- NOTE | 2016-10-25 09:36 | Psychiatric Progress Notes ---
Psychiatric Progress Note Date of Service Oct 25, 2016. Notes ID: Patient reviewed with liaison nurse. Initial consult performed on 10/22/15-- primarily ETOH dependence with evidence of depression. Interim progress reviewed--patient remains on librium with prn gilma Cruz. Has also tested positive for Cdif. CC: "I'm getting out of here today" HPI: as above, patient remains resistant to idea that he is depressed, states he will attend AA, doesn't understand why he can't sign out AMA ROS: denies physical complaints (no tremor/diarrhea) MSE: alert, superficially cooperative, thoughts organized, denies SI/HI/de leon, no evidence of psychosis or delirium. Imp: ETOH dependence and unspecified depressive disorder. Plan: reviewed with patient that he is currently on a 302 warrant, decision generally made about 302 commitment when medically cleared, which appears to still need rx for Cdif, hypokalemia and ongoing benzo taper. Attempted to reach his at both her home and cell number as there are now questions about the validity of the 302 as it may have been completed while she herself was intoxicated and he has consistently denied SI since sober. In addition, it is quite difficult to maintain appropriate Cdif contact precautions on an inpatient unit when patient is uncooperative. Platelets are improving but still quite low and I don't trust patient's commitment to continue with SSRI or appropriate outpatient treatment so not initiating medication at this time.
--- NOTE | 2016-10-25 11:34 | Gastroenterology Progress Note ---
Progress Note Date of Service: Oct 25, 2016 Subjective Pt evaluation today including: conversation w/ patient, physical exam, lab review Mr. Pinzon was seen evaluated this morning. He reports that his abdominal pain is much resolved. He has not had any bowel movements this morning. He at his breakfast and is without any complaints from a GI standpoint. Review of Systems Constitutional: No chills, No fever Respiratory: No cough, No shortness of breath Cardiac: No chest pain, No edema Abdomen: No GI bleeding, No constipation, No diarrhea, No nausea, No pain, No vomiting Medications Current Inpatient Medications Medications (Trade) Dose Ordered Sig/Johnny Route Start Time Stop Time Status Last Admin Dose Admin Ioversol (Optiray 320) 125 ml UD PRN IV 10/21/16 15:30 10/25/16 15:29 Ondansetron HCl (Zofran Inj) 4 mg Q6H PRN IV 10/21/16 18:15 11/20/16 18:14 Thiamine HCl (Vitamin B-1 Tab) 100 mg QAM PO 10/22/16 09:00 11/21/16 08:59 10/25/16 07:35 100 MG Folic Acid (Folvite Tab) 1 mg QAM PO 10/22/16 09:00 11/21/16 08:59 10/25/16 07:35 1 MG Multivitamins (Multivitamin Tab) 1 tab QAM PO 10/22/16 09:00 11/21/16 08:59 10/25/16 07:36 1 TAB Nicotine (Nicoderm Cq 14MG Patch) 1 patch QAM TD 10/22/16 09:00 11/21/16 08:59 10/25/16 07:35 1 PATCH Miscellaneous (Remove Nicoderm Patch) 1 ea HS N/A 10/21/16 21:00 11/20/16 20:59 10/24/16 20:21 1 EA Morphine Sulfate 3 mg 3 mg Q4H PRN IV 10/21/16 18:30 11/04/16 18:29 Sodium Chloride (Nss 1000ml) 1,000 ml @ 125 mls/hr Q8H IV 10/21/16 18:30 11/20/16 18:29 10/25/16 08:23 125 MLS/HR Al Hydroxide/Mg Hydroxide (Maalox Susp) 30 ml Q6H PRN PO 10/21/16 18:45 11/20/16 18:44 Lorazepam (Ativan Inj) 1 mg Q1H PRN IV 10/21/16 18:45 11/20/16 18:44 10/25/16 07:34 1 MG Chlordiazepoxide (Librium Cap) 5 mg Q12H PO 10/25/16 06:00 10/25/16 18:01 10/25/16 05:31 5 MG Pantoprazole Sodium (Protonix Tab) 40 mg BID PO 10/23/16 21:00 11/22/16 20:59 10/25/16 07:35 40 MG Metronidazole (Flagyl Tab) 500 mg TID PO 10/23/16 21:00 11/06/16 20:59 10/25/16 07:34 500 MG Hydralazine HCl (Apresoline Tab) 25 mg TODAY@1130 ONCE PO 10/25/16 11:30 10/25/16 11:31 Objective Vital Signs Date Time Temp Pulse Resp B/P Pulse Ox O2 Delivery O2 Flow Rate FiO2 10/25/16 10:51 36.8 103 18 145/114 94 10/25/16 08:00 Room Air 10/25/16 07:19 36.7 86 18 172/118 95 Room Air 162/116 10/25/16 04:00 Room Air 10/25/16 03:32 36.6 64 20 179/104 96 Room Air 10/25/16 00:00 Room Air 10/24/16 22:49 36.6 71 28 170/104 98 Room Air 10/24/16 20:00 Room Air 10/24/16 18:49 36.4 90 20 145/101 95 Room Air 155/119 10/24/16 16:00 Room Air 10/24/16 14:51 36.9 82 28 148/94 91 Room Air 10/24/16 11:30 Room Air Physical Exam General Appearance: + mild distress (patient is agitated prior to exam, he is frustrated with this admission, wants to go home and get back to work.) Eyes: PERRL ENT: hearing grossly normal Respiratory/Chest: lungs clear, normal breath sounds, no respiratory distress, no accessory muscle use Cardiovascular: regular rate, rhythm, no edema, no gallop, no JVD, no murmur Abdomen: normal bowel sounds, non tender, soft, no organomegaly Neurologic/Psych: alert, normal mood/affect, oriented x 3 Skin: normal color, no jaundice, warm/dry Laboratory Results Last 24 Hours Test 10/25/16 05:20 White Blood Count 4.93 K/uL Red Blood Count 3.52 M/uL Hemoglobin 11.7 g/dL Hematocrit 33.4 % Mean Corpuscular Volume 94.9 fL Mean Corpuscular Hemoglobin 33.2 pg Mean Corpuscular Hemoglobin Concent 35.0 g/dl RDW Standard Deviation 49.6 fL RDW Coefficient of Variation 14.6 % Platelet Count 90 K/uL Mean Platelet Volume 10.8 fL Nucleated RBC Absolute Count (auto) 0.10 K/uL Nucleated Red Blood Cells % 2.0 % Sodium Level 143 mmol/L Potassium Level 3.1 mmol/L Chloride Level 108 mmol/L Carbon Dioxide Level 24 mmol/L Anion Gap 11.0 mmol/L Blood Urea Nitrogen 1 mg/dl Creatinine 0.74 mg/dl Est Creatinine Clear Calc Drug Dose 127.2 ml/min Estimated GFR () 121.2 Estimated GFR (Non- 104.6 BUN/Creatinine Ratio 1.9 Random Glucose 120 mg/dl Calcium Level 7.9 mg/dl Magnesium Level 1.7 mg/dl Assessment and Plan Mr. Pinzon is a 56 year old male admitted for suicidal ideations. GI was consulted for diffuse abdominal pain and CT with question of IBD. IBD is unlikely given recent c-scope (this was a poor prep however) differentials also include alcoholic gastritis and duodenitis, c.diff. Plan PPI BID complete course of ABX for c.diff outpatient colonoscopy and follow up for liver disease early cirrhosis as evidence by mention of portal hypertensive gastropathy in 2014 as well as current low platelet level of 45. alcoholic hepatitis as evidenced by transaminitis - Bilirubin and PT/INR are normal and Maddrey's Discriminant Function score is low. No steroids are indicated. Complete alcohol abstention - will continue to discuss with patient. 2 gram sodium diet ETOH abstinence GI to sign off, please call with any questions or concerns Attg addendum: I interviewed and examined pt, reviewed chart and labs. Pt with abd pain and diarrhea, stool pos for C diff, CT suggestive of IBD. He is currently not having any GI symptoms since begun on Flagyl. Will schedule outpt GI f/u, possible cscopy. WOuld consider switching from Flagyl to Vanco to treat C diff, given his h/o alcohol abuse - will defer to primary service. Will sign off, please reconsult as needed.
[2016-10-25] MEDS ORDERED: GABAPENTIN 600MG X1 DOSE PO SCH (12:00)
[2016-10-25] MEDS ORDERED: LISINOPRIL 20 MG TAB PO ONE (13:15)
[2016-10-25] MEDS ORDERED: OXYCODONE/ACETAMINOPHEN 5-325 TAB PO ONE (13:15)
[2016-10-25] MEDS ORDERED: LEVALBUTEROL 0.63MG/3 ML NEB INH ONE (13:15)
--- NOTE | 2016-10-25 13:51 | Progress Note ---
Subjective Date of Service: Oct 25, 2016. Subjective Pt evaluation today including: conversation w/ patient, conversation w/ family , physical exam, lab review, review of studies, conversation w/ remediation bioanalytics consultant, review of inpatient medication list Saw/examined the patient in room 205 he's short of breath today +anxious, +agitated +headache, +pain bilateral knees Problem List Medical Problems: (1) Abdominal pain Status: Acute (2) Acute gastroenteritis Status: Acute (3) Alcohol withdrawal Status: Acute (4) Colitis Status: Acute (5) Dehydration Status: Acute (6) Dehydration Status: Acute (7) Diarrhea Status: Acute (8) Diffuse abdominal pain Status: Acute (9) Failure of outpatient treatment Status: Acute (10) Mood disorder Status: Acute (11) Transaminitis Status: Acute Review of Systems Respiratory: + shortness of breath, No cough Cardiac: No chest pain Abdomen: No diarrhea, No nausea, No pain, No vomiting Musculoskeletal: + joint pain (bilateral knee pain) Psychiatric: + anxiety, + depression symptoms, + insomnia Medications Current Inpatient Medications Medications (Trade) Dose Ordered Sig/Johnny Route Start Time Stop Time Status Last Admin Dose Admin Ioversol (Optiray 320) 125 ml UD PRN IV 10/21/16 15:30 10/25/16 15:29 Ondansetron HCl (Zofran Inj) 4 mg Q6H PRN IV 10/21/16 18:15 11/20/16 18:14 Thiamine HCl (Vitamin B-1 Tab) 100 mg QAM PO 10/22/16 09:00 11/21/16 08:59 10/25/16 07:35 100 MG Folic Acid (Folvite Tab) 1 mg QAM PO 10/22/16 09:00 11/21/16 08:59 10/25/16 07:35 1 MG Multivitamins (Multivitamin Tab) 1 tab QAM PO 10/22/16 09:00 11/21/16 08:59 10/25/16 07:36 1 TAB Nicotine (Nicoderm Cq 14MG Patch) 1 patch QAM TD 10/22/16 09:00 11/21/16 08:59 10/25/16 07:35 1 PATCH Miscellaneous (Remove Nicoderm Patch) 1 ea HS N/A 10/21/16 21:00 11/20/16 20:59 10/24/16 20:21 1 EA Morphine Sulfate 3 mg 3 mg Q4H PRN IV 10/21/16 18:30 11/04/16 18:29 Sodium Chloride (Nss 1000ml) 1,000 ml @ 125 mls/hr Q8H IV 10/21/16 18:30 11/20/16 18:29 10/25/16 08:23 125 MLS/HR Al Hydroxide/Mg Hydroxide (Maalox Susp) 30 ml Q6H PRN PO 10/21/16 18:45 11/20/16 18:44 Lorazepam (Ativan Inj) 1 mg Q1H PRN IV 10/21/16 18:45 11/20/16 18:44 10/25/16 12:48 1 MG Chlordiazepoxide (Librium Cap) 5 mg Q12H PO 10/25/16 06:00 10/25/16 18:01 10/25/16 05:31 5 MG Pantoprazole Sodium (Protonix Tab) 40 mg BID PO 10/23/16 21:00 11/22/16 20:59 10/25/16 07:35 40 MG Metronidazole (Flagyl Tab) 500 mg TID PO 10/23/16 21:00 11/06/16 20:59 10/25/16 12:48 500 MG Levalbuterol (Xopenex 0.63 Mg/ 3 Ml Neb) 0.63 mg Q6R INH 10/25/16 15:00 11/24/16 14:59 Lisinopril (Zestril Tab) 20 mg QAM PO 10/26/16 09:00 11/25/16 08:59 Objective Vital Signs Date Time Temp Pulse Resp B/P Pulse Ox O2 Delivery O2 Flow Rate FiO2 10/25/16 12:00 36.7 77 16 138/58 97 Room Air 10/25/16 12:00 Room Air 10/25/16 10:51 36.8 103 18 145/114 94 10/25/16 08:00 Room Air 10/25/16 07:19 36.7 86 18 172/118 95 Room Air 162/116 10/25/16 04:00 Room Air 10/25/16 03:32 36.6 64 20 179/104 96 Room Air 10/25/16 00:00 Room Air 10/24/16 22:49 36.6 71 28 170/104 98 Room Air 10/24/16 20:00 Room Air 10/24/16 18:49 36.4 90 20 145/101 95 Room Air 155/119 10/24/16 16:00 Room Air 10/24/16 14:51 36.9 82 28 148/94 91 Room Air Physical Exam General Appearance: no apparent distress Respiratory/Chest: lungs clear, normal breath sounds, no respiratory distress, no accessory muscle use Cardiovascular: regular rate, rhythm, no edema, no murmur Abdomen: normal bowel sounds, non tender, soft Extremities: normal inspection, no pedal edema Laboratory Results Last 24 Hours Test 10/25/16 05:20 White Blood Count 4.93 K/uL Red Blood Count 3.52 M/uL Hemoglobin 11.7 g/dL Hematocrit 33.4 % Mean Corpuscular Volume 94.9 fL Mean Corpuscular Hemoglobin 33.2 pg Mean Corpuscular Hemoglobin Concent 35.0 g/dl RDW Standard Deviation 49.6 fL RDW Coefficient of Variation 14.6 % Platelet Count 90 K/uL Mean Platelet Volume 10.8 fL Nucleated RBC Absolute Count (auto) 0.10 K/uL Nucleated Red Blood Cells % 2.0 % Sodium Level 143 mmol/L Potassium Level 3.1 mmol/L Chloride Level 108 mmol/L Carbon Dioxide Level 24 mmol/L Anion Gap 11.0 mmol/L Blood Urea Nitrogen 1 mg/dl Creatinine 0.74 mg/dl Est Creatinine Clear Calc Drug Dose 127.2 ml/min Estimated GFR () 121.2 Estimated GFR (Non- 104.6 BUN/Creatinine Ratio 1.9 Random Glucose 120 mg/dl Calcium Level 7.9 mg/dl Magnesium Level 1.7 mg/dl Assessment and Plan This is a 56 year old male with PMH of alcohol abuse, HTN, tobacco abuse presents after brought him in due to possible suicidal ideation Alcohol Abuse and Withdrawal 2 thiamine, folate, multivitamin replace K and Mg continue benzos PRN 2/5 continue thiamine, folate, multivitamin continue to replace Mag still going through withdrawal and requiring Ativan q2 hours wants to sign out AMA will await psych input 2 still requiring ativan almost every hour due to agitation continue thiamine, folate, multivitamin, magnesium still try to taper Ativan 2/3 patient going through withdrawal symptoms tremors at rest, hallucinations does have a history of DTs ativan PRN received banana bag in the ER; now on multivitamin, folate, thiamine Magnesium level within normal limits Ativan PRN Librium taper Patient agreeable to outpatient AA meetings; refusing inpatient EtOH rehab Shortness of Breath likely underlying COPD, not officially diagnosed nebulizers as needed Tachycardia likely related to anxiety/agitation Hypertension again, this is likely related to alcohol withdrawal patient takes lisinopril 20mg daily, will restart this Depression w/ Suicidal Ideation appreciate psych evaluation one-to-one observation placed due to suicidal ideation plan is to start SSRI possible inpatient vs. outpatient psych eval C. Diff Infection patient positive for C. diff started on flagyl total of 14 days denies diarrhea symptoms Transaminitis appreciate GI input the plan for this patient is to have colonoscopy after detox can be done as an outpatient no other w/up necessary Hypokalemia, resolved Thrombocytopenia possibly to EtOH abuse alcoholic liver cirrhosis? monitor and avoid antiplatelets for now Tobacco Abuse Nicotine patch will speak about tobacco cessation DVT ppx SCDs FULL CODE
[2016-10-25] MEDS: LEVALBUTEROL 0.63MG/3 ML NEB INH SCH ×2 (14:08→19:53)
[2016-10-25] MEDS ORDERED: LISI-787 PO (14:46)
[2016-10-25] MEDS ORDERED: TRAM-10 PO (14:46)
[2016-10-26] MEDS: LEVALBUTEROL 0.63MG/3 ML NEB INH SCH ×3 (01:51→14:37)
[2016-10-26 03:31] VITALS: BP 157/102; PULSE 76; TEMP 36.4; O2SAT 96
[2016-10-26 06:45] LABS: BUN/CREATININE RATIO 3.1 (10-20); CALCIUM 7.5 mg/dl (8.5-10.1); CREATININE 0.78 mg/dl (0.60-1.40); MAGNESIUM 1.8 mg/dl (1.8-2.4); POTASSIUM 3.2 mmol/L (3.5-5.1)
[2016-10-26 06:48] LABS: ALB/GLOB RATIO 0.8 (0.9-2)
[2016-10-26 06:58] VITALS: BP 157/91; PULSE 75; TEMP 36.4; O2SAT 97
[2016-10-26 07:08] VITALS: PULSE 68; O2SAT 98
[2016-10-26] MEDS: METRONIDAZOLE 500 MG TAB PO SCH ×2 (07:49→14:30)
[2016-10-26] MEDS: MULTIVITAMIN TAB PO SCH (07:49)
[2016-10-26] MEDS: PANTOprazole SOD 40 MG TAB PO SCH (07:49)
[2016-10-26] MEDS: THIAMINE HCL 100 MG TAB PO SCH (07:50)
[2016-10-26] MEDS: NICOTINE 14 MG/24 HR TDSY TD SCH (07:50)
[2016-10-26] MEDS ORDERED: POTASSIUM CHLORIDE 20 MEQ TABCR PO ONE (08:45)
[2016-10-26] MEDS ORDERED: LISINOPRIL 20 MG TAB PO SCH (09:00)
[2016-10-26 11:11] VITALS: BP_SYST 116; BP_SYST 181; BP_DIAS 113; BP_DIAS 63; PULSE 65; PULSE 94; TEMP 36.6; TEMP 37; O2SAT 93; O2SAT 94
--- NOTE | 2016-10-26 11:34 | Progress Note ---
Internal Med Progress Note Date of Service: Oct 26, 2016. Provider Documentation: SUBJECTIVE: Patient is sitting in his bed and is in no apparent distress. Awake /Alert and answers my questions well. Has been out of bed intermittently and walks independently. Denies any new change or complaint. "I want to go home." OBJECTIVE: Vital Signs-as noted below Examination: General Appearance: Alert/Awake and is in no apparent distress HEENT: Normocephalic, Eyes, Ears, Nose & Throat are normal looking. Neck: Supple, Midline trachea, Thyroid not palpable. Respiratory/Chest: lungs clear, normal breath sounds, no respiratory distress, no accessory muscle use Cardiovascular: regular rate, rhythm, no edema, no murmur Abdomen: normal bowel sounds, non tender, soft Extremities: normal inspection, no pedal edema Neurologic: Alert/Awake and in no neurologic deficit. Lab data as noted below. ASSESSMENT & PLAN: Alcohol Abuse and Withdrawal: Clinically & hemodynamically stable. -Continue MVI, Folate & Thiamine. -No signs of withdrawal -Use Ativan if need arises. -Awaiting Psych re-evaluation -No signs of active withdrawal Shortness of Breath: Resolved. Likely underlying COPD, not officially diagnosed -Nebulizers as needed Hypokalemia: Replaced. Follow up labs in AM -Discontinued IVF C. Diff Colitis: Resolving. Better formed stools now with less frequency. -Continue Flagyl (Day # 4) -Added Lactobacillus Tachycardia: Resolving. Likely related to anxiety/agitation Hypertension: BOP is stabilizing. -Continue Lisinopril under parameters. -Low Salt diet. Depression w/ Suicidal Ideation: Reviewed from notes. No such ideation now. -Requested re-evaluation by Psychiatry to plan further management. -Need input regarding plan is to start SSRI Transaminitis: Likely due to chronic alcohol use. Gradually trending downwards. -Appreciate GI input -Plan for this patient is to have colonoscopy after detox as outpatient -GI has signed off. Thrombocytopenia: Likely due to alcoholism. -Continue monitoring. Tobacco Abuse -Continue Nicotine patch DVT Prophylaxis: SCDs Code Status: FULL CODE Disposition: Clinically stable. Discharge plan as per Psychiatry re-evaluation Vital Signs: Date Time Temp Pulse Resp B/P Pulse Ox O2 Delivery O2 Flow Rate FiO2 10/26/16 11:11 36.6 65 22 116/63 93 Room Air 10/26/16 09:44 Room Air 10/26/16 08:00 Room Air 10/26/16 07:08 68 16 98 Room Air 10/26/16 06:58 36.4 75 18 157/91 97 Room Air 10/26/16 04:00 Room Air 10/26/16 03:31 36.4 76 19 157/102 96 Room Air 10/26/16 00:32 Room Air 10/25/16 22:46 36.3 70 19 136/84 95 Room Air 10/25/16 20:00 Room Air 10/25/16 19:53 88 16 98 Room Air 10/25/16 19:18 36.7 87 16 148/100 95 Room Air 10/25/16 16:00 Room Air 10/25/16 14:52 36.8 99 18 146/99 95 Room Air 10/25/16 14:08 101 16 98 Room Air 10/25/16 12:00 36.7 77 16 138/58 97 Room Air 10/25/16 12:00 Room Air Lab Results: Results Past 24 Hours Test 10/26/16 05:26 Range/Units Sodium Level 145 136-145 mmol/L Potassium Level 3.2 3.5-5.1 mmol/L Chloride Level 110 98-107 mmol/L Carbon Dioxide Level 24 21-32 mmol/L Anion Gap 11.0 3-11 mmol/L Blood Urea Nitrogen 2 7-18 mg/dl Creatinine 0.78 0.60-1.40 mg/dl Est Creatinine Clear Calc Drug Dose 122.1 ml/min Estimated GFR () 118.6 Estimated GFR (Non- 102.3 BUN/Creatinine Ratio 3.1 10-20 Random Glucose 121 70-99 mg/dl Calcium Level 7.5 8.5-10.1 mg/dl Magnesium Level 1.8 1.8-2.4 mg/dl Total Bilirubin 1.5 0.2-1 mg/dl Aspartate Amino Transf (AST/SGOT) 162 15-37 U/L Alanine Aminotransferase (ALT/SGPT) 169 12-78 U/L Alkaline Phosphatase 199 45-117 U/L Total Protein 5.6 6.4-8.2 gm/dl Albumin 2.4 3.4-5.0 gm/dl Globulin 3.2 2.5-4.0 gm/dl Albumin/Globulin Ratio 0.8 0.9-2
--- NOTE | 2016-10-26 12:46 | Psychiatric Progress Notes ---
Psychiatric Progress Note Date of Service Oct 26, 2016. Notes Identifying information: 56-year-old male with a history of most medical problems, alcohol dependence, and no other psychiatric history who was admitted to the hospitalist service 5 days ago after he presented intoxicated with a blood alcohol level of 358. Psychiatry was consulted for depression and suicidality, and he is seen today in follow-up. Chief complaint: "There's no guns in the house okay, so no chance of me shooting myself." The patient was initially seen in consultation by Dr. Lemus on 10/21/2016 and she saw him again yesterday for follow-up. He is being treated for alcohol withdrawal and C. difficile colitis. His had completed a 302 petition prior to presentation, which expressed concerns that he was not caring for himself due to his drinking and that he made suicidal statements. He is consistently denied suicidality about his hospital stay, and the psychiatric liaison nurse spoke with the patient and his yesterday, and she denied any concerns about his safety at discharge, but wanted him to stay in the hospital to complete his medical treatment. They reviewed the events leading up to his admission, and his stated that she was concerned that he was drinking a half liter of vodka daily and not caring for himself. She said he had never been treated for mental illness and nor had he made suicidal statements in the 12 years that she known him. She confirmed that there are no guns in the home. Today, the patient states that he is anxious to be discharged as he has an interview a week from today for a new job, and his primary stress is being out of work. He does not think that he is depressed, stating that his mood was "fine and happy" until he was laid off from his job about 3 weeks prior to presentation. He states that he was upset about being laid off, was "feeling sorry for myself," and that his drinking increased over the past 3 weeks. He admits that his drinking is a problem, and states that he "knows I need to quit. " He describes drinking in excess, "until I passed out." He denies that he ever made suicidal statements, but states he understands why his family was concerned, as he was spending all of his time "hiding in the basement drinking. " He thinks that they were worried that he would "do something stupid while I was drinking." He states that his mother made a comment asking him if he was going to "just stay down there and drink herself to ?" He denies that he is ever thought of ending his life, and denies any intent to harm himself. He states he plans to get back into AA, which she has had good success with in the past, as he was able to maintain sobriety for 19 years. He relapsed about 8 years ago, and has not attended AA and for years, but states he has friends in the program and knows that it can work for him. Review of systems: Denies problems with anxiety, sleep, and symptoms of psychosis. Mental status exam: Overweight white male appearing older than his stated age. Dressed in a hospital gown and blue jeans, with a full armando. Adequate hygiene and grooming. No abnormal movements, gait and station are normal. Eye contact is fair. Calm and cooperative with the interview. Mood is "anxious to get out of here," and affect is stable, reactive, and appropriate. He denies suicidality, homicidality, hallucinations, and paranoia. Speech is normal rate volume and tone. Thoughts are goal directed. Memory, attention, and language are grossly intact per interview with the exception of the events that occurred while he was intoxicated. Insight and judgment are fair. Diagnoses: Alcohol use disorder, severe Alcohol withdrawal Recommendations 1. Alcohol abuse: Reviewed the risks of continued alcohol use with the patient , including worsening of mood, medical problems, and . He recognizes that his drinking is a problem, and that he needs to stop. He is planning to resume AA, which he reports good response to in the past. He has friends in the program, and recommended that he contact them and make plans to attend meetings with them so they can encourage him and hold him accountable. Avoid prescription of controlled substances, given the risk of addiction. 2. Safety: The patient came in with a 302 petition and warrant. He has consistently denied suicidal thoughts throughout his stay, and made the suicidal statements while intoxicated. The psychiatric liaison nurse met with the patient and his , and his confirmed that there are no guns in the home and denied safety concerns with him being discharged home once his medical treatment is completed. We discussed the warning signs of depression and he is willing to seek mental health treatment if his mood worsens or if he develops suicidal thoughts in the future. Inpatient psychiatric treatment is not indicated at this time. No further recommendations. We will sign off. Please call the liaison phone with further questions.
[2016-10-26 14:37] VITALS: PULSE 77; O2SAT 96
[2016-10-26] MEDS ORDERED: PRT40 PO (14:48)
[2016-10-26] MEDS ORDERED: LACTCAP3 PO (14:48)
[2016-10-26] MEDS ORDERED: MTR500 PO (14:48)
[2016-10-26] MEDS ORDERED: FLV1 PO (14:48)
[2016-10-26] MEDS ORDERED: THM100 PO (14:48)
--- NOTE | 2016-10-26 14:52 | Discharge Instructions ---
Discharge Instructions Admission Reason for Admission: Abdominal Pain, Alcohol Abuse, Suicidal Ideations Discharge Discharge Diagnosis / Problem: Acute Alcohol Use Discharge Goals Goal(s): Decrease discomfort, Improve function, Increase independence, Improve disease control, Improve nutritional status, Learn about illness, Diagnostic testing, Therapeutic intervention Activity Recommendations Activity Limitations: resume your previous activity Lifting Limitations: none Exercise/Sports Limitations: as tolerated May Resume Sexual Activity: when tolerated Shower/Bathe: no limitations Driving or Machine Use: resume 1 day after discharge . Instructions / Follow-Up Instructions / Follow-Up 1. Take all the medications as directed. 2. Follow dietary instructions as discussed. 3. Follow up with PCP on 11/02/2016 @ 11.10 AM. Current Hospital Diet Patient's current hospital diet: AHA Diet (Heart Healthy) Discharge Diet Recommended Diet: AHA Diet (Heart Healthy) Pending Studies Studies pending at discharge: no Medical Emergencies . Who to Call and When: Medical Emergencies: If at any time you feel your situation is an emergency, please call 911 immediately. . Non-Emergent Contact Non-Emergency issues call your: Primary Care Provider . . "Provider Documentation" section prepared by David Garcia. VTE Core Measure Inpt VTE Proph given/why not?: SCD's
[2016-10-26 14:53] VITALS: BP 181/113; PULSE 77; TEMP 37; O2SAT 96
--- NOTE | 2016-10-26 14:55 | Discharge Summary ---
Discharge Summary Admission Date: Oct 21, 2016 at 18:08 Discharge Date: Oct 26, 2016 Discharge Disposition: Home Principal Diagnosis: Alcohol Use & Withdrawal Secondary Diagnoses/Problems: C. Diff Colitis Hypokalemia Dyspnea (Resolved) Hypertension tachycardia Thrombocytopenia Depression Transaminitis Procedures: IMPRESSION: 1. No evidence of bowel obstruction. No evidence of free air 2. Hepatic steatosis 3. Normal appendix. 4. Diverticulosis. No evidence of acute peridiverticular inflammatory change 5. Hypertrophy of the submucosal fat within the colon most pronounced within the ascending colon and cecum. This finding has been reported in inflammatory bowel disease. Vaccinations: NONE Consultations: Psychiatry ---> They have cleared the patient Pending Studies/Follow-Up: Follow up with Psychiatry as outpatient. Medication Reconciliation New Medications: Lactobacillus (Acidophilus) 1 Cap Cap 1 CAP PO TIDM, #30 CAP 0 Refills Folic Acid (Folic Acid) 1 Mg Tab 1 MG PO QAM, #100 TAB Metronidazole (Metronidazole) 500 Mg Tab 500 MG PO TID, #30 TAB Pantoprazole (Pantoprazole Sodium) 40 Mg Tab 40 MG PO BID, #60 TAB 1 Refill Thiamine HCl (Vitamin B-1) 100 Mg Tab 100 MG PO QAM, #100 TAB Continued Medications: Lisinopril/Hctz (Zestoretic 20MG/12.5MG) Tab 1 TAB PO DAILY, TAB Tramadol (Ultram) 50 Mg Tab 50 MG PO Q6H PRN for Pain, TAB Admission Information HPI (per Admitting provider): Patient seen and examined. 56 year old male with PMHx of alcohol abuse, hepatitis C, HTN, tobacco abuse and other problems listed below presents to the ED after signed 302 earlier today for suicidal ideations. When speaking with patient he denies suicidal ideations. He reports he was layed off 3 weeks ago and since then has been drinking a 1/2 bottle of vodka daily. He reports he feels very depressed. He states he has not been eating or bathing. He reports diffuse sharp 10/10 abdominal pain for the past month. He reports associated diarrhea. He denies fevers, chills, URI symptoms, chest pain, SOB, nausea, vomiting, dysuria, calf pain and edema. He denies suicidal/homicidal ideations, denies hallucinations. He denies illicit drug use. Per report patient asked his for a gun today stating that "today would be the last day." called [employer] and a 302 was signed patient was escorted to [facility] by police for further evaluation. In the ED patient is tachycardic, LFTs are elevated Alcohol level is 358. CT A/P showed hypertrophy of submucosal fat but was otherwise unremarkable, CT did not show gallbladder disease. Patient has a history of Hepatitis C but does not take medications d/t cost. He received Toradol, IVFs, and nicotine patch. He will be admitted for further workup and treatment. Physical Exam (per Admitting): General Appearance: + pertinent finding Head: normocephalic, atraumatic Eyes: PERRL, EOMI, sclerae normal ENT: hearing grossly normal, pharynx normal Neck: supple, no JVD, trachea midline Respiratory/Chest: chest non-tender, lungs clear, normal breath sounds, no respiratory distress, no accessory muscle use Cardiovascular: no edema, no gallop, no JVD, no murmur, normal peripheral pulses, + tachycardia Abdomen/GI: normal bowel sounds, soft, no organomegaly, + tenderness Back: normal inspection, no muscle spasm Extremities/Musculoskelatal: no calf tenderness, normal capillary refill, no pedal edema Neurologic/Psych: + pertinent finding Skin: normal color, warm/dry, no rash Lymphatic: no adenopathy Hospital Course Alcohol Abuse and Withdrawal: Clinically & hemodynamically stable. -Continue MVI, Folate & Thiamine. -No signs of withdrawal -Use Ativan if need arises. -Awaiting Psych re-evaluation -No signs of active withdrawal Shortness of Breath: Resolved. Likely underlying COPD, not officially diagnosed -Nebulizers as needed Hypokalemia: Replaced. Follow up labs in AM -Discontinued IVF C. Diff Colitis: Resolving. Better formed stools now with less frequency. -Continue Flagyl (Day # 4) -Added Lactobacillus Tachycardia: Resolving. Likely related to anxiety/agitation Hypertension: BOP is stabilizing. -Continue Lisinopril under parameters. -Low Salt diet. Depression w/ Suicidal Ideation: Reviewed from notes. No such ideation now. -Requested re-evaluation by Psychiatry to plan further management. -Need input regarding plan is to start SSRI Transaminitis: Likely due to chronic alcohol use. Gradually trending downwards. -Appreciate GI input -Plan for this patient is to have colonoscopy after detox as outpatient -GI has signed off. Thrombocytopenia: Likely due to alcoholism. -Continue monitoring. Tobacco Abuse -Continue Nicotine patch DVT Prophylaxis: SCDs Code Status: FULL CODE Disposition: Clinically stable. Discharge plan as per Psychiatry re-evaluation Total time spent on discharge = 42 minutes. This includes examination of the patient, discharge planning, medication reconciliation, and communication with other providers. Discharge Instructions Activity Recommendations Activity Limitations: resume your previous activity Lifting Limitations: none Exercise/Sports Limitations: as tolerated May Resume Sexual Activity: when tolerated Shower/Bathe: no limitations Driving or Machine Use: resume 1 day after discharge . Instructions / Follow-Up Instructions / Follow-Up 1. Take all the medications as directed. 2. Follow dietary instructions as discussed. 3. Follow up with PCP on 11/02/2016 @ 11.10 AM. Current Hospital Diet Patient's current hospital diet: AHA Diet (Heart Healthy) Discharge Diet Recommended Diet: AHA Diet (Heart Healthy) Additional Copies To Tesfaye Santana M.D.
[2016-10-26] MEDS ORDERED: LACTOBACILLUS ACIDOPHILUS (FLORANEX) TAB PO SCH (16:45)
[2017-03-31] MEDS ORDERED: NTRSLP4 SL (17:31)
[2017-03-31] MEDS ORDERED: LPT40 PO (17:31)
[2017-03-31] MEDS ORDERED: LSN20 PO (17:31)
[2017-03-31] MEDS ORDERED: PLV75 PO (17:31)
[2017-03-31] MEDS ORDERED: CRG625 PO (17:31)
[2017-03-31] MEDS ORDERED: ASPEC81 PO (17:31)
[2017-04-29] MEDS ORDERED: VNCS125 PO (19:55)
[2017-04-29] MEDS ORDERED: LXP10 PO (19:55)
== END 2016-10-26 15:20 | disposition home or self-care (01) | DRG 880 ==
LOC: ENRESERVDT → ENRESERVTM → EDSEX 14:01 → EDBD 14:01 → C.EDA 14:04 → UNDOADMIN 18:08 → C.2E 18:08 → EDBEDREQ 18:20 → CANBEDREQ 10-26 12:29
PROVIDERS: ADMIT Internal Medicine; ATTEND Emergency Medicine
DX: R45.851 Suicidal ideations (principal); A04.7 Enterocolitis due to Clostridium difficile; F10.239 Alcohol dependence with withdrawal, unspecified; K76.6 Portal hypertension; F32.9 Major depressive disorder, single episode, unspecified; I25.10 Atherosclerotic heart disease of native coronary artery without angina pectoris; E78.5 Hyperlipidemia, unspecified; E87.6 Hypokalemia; K70.10 Alcoholic hepatitis without ascites; K74.60 Unspecified cirrhosis of liver; J44.9 Chronic obstructive pulmonary disease, unspecified; F17.210 Nicotine dependence, cigarettes, uncomplicated; B19.20 Unspecified viral hepatitis C without hepatic coma; R74.0 Nonspecific elevation of levels of transaminase and lactic acid dehydrogenase [LDH]; I10 Essential (primary) hypertension; D69.6 Thrombocytopenia, unspecified; K27.9 Peptic ulcer, site unspecified, unspecified as acute or chronic, without hemorrhage or perforation; K31.89 Other diseases of stomach and duodenum; K29.20 Alcoholic gastritis without bleeding; K29.80 Duodenitis without bleeding; Y90.8 Blood alcohol level of 240 mg/100 ml or more; R00.0 Tachycardia, unspecified; R06.00 Dyspnea, unspecified; I70.1 Atherosclerosis of renal artery; R61 Generalized hyperhidrosis; I45.10 Unspecified right bundle-branch block; Z87.19 Personal history of other diseases of the digestive system

== ENCOUNTER 2017-03-29 11:19 | Inpatient (IN) | payer BC, OTHER ==
[~2017-03-29] VITALS: Ht 167.6 cm; Wt 101.1 kg
[2017-03-29] VITALS (20 sets, daily range): BP systolic 119–172; BP diastolic 78–110; PULSE 71–91; TEMP 36.6–36.8; O2SAT 94–100; Ht 167.6 cm; Wt 101.1 kg
[~2017-03-29 11:19] MED LIST changes: -CIPR-255 PO; -CLC100 PO; +FLV1 PO; +LACTCAP3 PO; +MTR500 PO; -MULT-922 PO; +PRT40 PO; +THM100 PO
[2017-03-29] MEDS ORDERED: NITROGLYCERIN 0.4 MG SL PER TAB CHARGE ONE (11:30)
[2017-03-29] MEDS ORDERED: NiCARDipine HCL INJ 2.5 MG/ML 10 ML AMP ONE (11:36)
[2017-03-29] MEDS ORDERED: SODIUM CHLORIDE 0.9% 1000ML 1,000 ML IV STA (11:36)
[2017-03-29] MEDS ORDERED: HEPARIN SOD (PORCINE) 1000 UNIT/ML 10 ML VIAL ONE (11:37)
[2017-03-29] MEDS ORDERED: NITROGLYCERIN/D5W 100MCG/ML 20ML SYR ONE (11:37)
[2017-03-29] MEDS ORDERED: MIDAZOLAM HCL 1 MG/ML 2ML VIAL ONE (11:38)
[2017-03-29] MEDS ORDERED: FENTANYL CITRATE INJ 50 MCG/1 ML 2 ML VIAL ONE ×2 (11:38→12:09)
[2017-03-29 11:46] LABS: BASO % 0.6 %; BASO ABS # 0.06 K/uL (0-0.2); COMPLETE YES; EOS % 3.3 %; HEMATOCRIT 44.8 % (42-52); IG% 0.6 %; LYMPH % 25.4 %; LYMPH ABS # 2.66 K/uL (1.2-3.4); MEAN CELL VOLUME 98.7 fL (80-100); MEAN CORPUSCULAR HEMOGLOBIN 34.1 pg (25-34); MEAN CORPUSCULAR HGB CONC 34.6 g/dl (32-36); MONO % 9.8 %; NEUT % 60.3 %; PLATELET COUNT 275 K/uL (130-400); RED BLOOD COUNT 4.54 M/uL (4.7-6.1); WHITE BLOOD COUNT 10.46 K/uL (4.8-10.8)
[2017-03-29 11:46] LABS: ISTAT CREATININE 0.9 mg/dl (0.6-1.3); ISTAT IONIZED CALCIUM 1.18 mmol/l (1.12-1.32)
--- NOTE | 2017-03-29 11:55 | DIAGNOSTIC IMAGING REPORT ---
SINGLE VIEW CHEST CLINICAL HISTORY: Atypical chest pain. FINDINGS: An AP, portable, upright chest radiograph is compared to study dated 01/07/2016 and correlated with chest CT dated 11/27/2013. The examination is degraded by portable technique, large body habitus, apical lordotic positioning, and patient rotation. The heart is top normal for projection. There is mild atherosclerotic calcification of the thoracic aorta. Bibasilar atelectasis is observed and there are low lung volumes The lungs and pleural spaces are otherwise clear. No pneumothorax is seen. The skeletal structures are osteopenic. The bony thorax is grossly intact. IMPRESSION: Low lung volumes with no acute cardiopulmonary abnormality. Electronically signed by: Rusty Francois M.D. 03/29/2017 11:53 AM Dictated Date/Time: 03/29/2017 11:52 AM
[2017-03-29 12:04] LABS: CALCIUM 9.7 mg/dl (8.5-10.1); CREATININE 0.99 mg/dl (0.60-1.40)
[2017-03-29] MEDS ORDERED: EPTIFIBATIDE 2 MG/ML 10 ML VIAL IV ONE (12:06)
[2017-03-29] MEDS ORDERED: EPTIFIBATIDE 0.75 MG/ML 75MG VIAL IV ONE (12:06)
[2017-03-29] MEDS ORDERED: ONDANSETRON INJ 2 MG/ML 2 ML VIAL ONE (12:09)
[2017-03-29 12:12] LABS: CKMB/CK RATIO 1.6 (0-3.0)
[2017-03-29] MEDS ORDERED: METOPROLOL TARTRATE 1 MG/ML VIAL ONE (12:47)
[2017-03-29] MEDS ORDERED: TICAGRELOR 90 MG TAB PO ONE (12:59)
[2017-03-29] MEDS ORDERED: MAGNESIUM HYDROXIDE SUSP 30 ML UDC PO PRN (13:15)
[2017-03-29] MEDS ORDERED: ONDANSETRON INJ 2 MG/ML 2 ML VIAL IV PRN (13:15)
[2017-03-29] MEDS ORDERED: ACETAMINOPHEN 325 MG TAB PO PRN (13:15)
[2017-03-29] MEDS ORDERED: ALUMINUM/MAGNESIUM/SIMETH (MAALOX MAX) 30 ML UDC PO PRN (13:15)
[2017-03-29] MEDS ORDERED: EPTIFIBATIDE BOLUS / DRIP IV ONE (13:15)
[2017-03-29] MEDS ORDERED: NITROGLYCERIN 0.4 MG SL PER TAB CHARGE SL PRN (13:15)
[2017-03-29] MEDS ORDERED: LORAZEPAM INJ 0.5 MG in SYRINGE 0 ML IV PRN (13:15)
[2017-03-29] MEDS ORDERED: ATROPINE SULFATE 0.1 MG/ML 5ML SYR IV PRN (13:15)
--- NOTE | 2017-03-29 13:29 | Procedure Note ---
Pre-Mod Sedation Assessment General Date of Moderate Sedation: Mar 29, 2017. Vital Signs: Vital Signs Past 12 Hours Date Time Temp Pulse Resp B/P (MAP) Pulse Ox O2 Delivery O2 Flow Rate FiO2 03/29/17 13:16 83 16 135/96 (109) 97 Room Air 03/29/17 13:04 84 16 136/88 (104) 98 Room Air 03/29/17 12:51 83 16 131/93 (106) 98 Nasal Cannula 3 03/29/17 11:47 36.4 114 26 166/101 98 03/29/17 11:39 114 26 166/101 03/29/17 11:37 164/126 03/29/17 11:35 166/135 03/29/17 11:34 111 20 03/29/17 11:33 181/137 03/29/17 11:32 195/126 03/29/17 11:31 176/124 03/29/17 11:30 109 03/29/17 11:29 109 22 03/29/17 11:24 214/137 03/29/17 11:20 36.4 105 24 214/134 98 Review Cardiovascular: no murmur, normal peripheral pulses, + tachycardia Abdomen: non tender, soft Lungs: lungs clear Pre-Sedation Airway Assessment Oral Cavity: WNL Able to Visualize Vocal Cords: No Short Thick Neck: No Hx of Sleep Apnea: No Smoking Status: Current Some Day Smoker ASA Classification: Class III Procedure Planning Contraindications-for Mod Sed: None Yes Notes The planned sedation has been discussed with the patient and consent obtained. I have identified the patient, determined the appropriateness of sedation and have assessed the patient immediately prior to the procedure. All medicine(s) and interventions are by my order.
--- NOTE | 2017-03-29 13:30 | Procedure Note ---
Post-Mod Sedation Assessment General Date of Moderate Sedation Mar 29, 2017. Vital Signs: Vital Signs Past 12 Hours Date Time Temp Pulse Resp B/P (MAP) Pulse Ox O2 Delivery O2 Flow Rate FiO2 03/29/17 13:16 83 16 135/96 (109) 97 Room Air 03/29/17 13:04 84 16 136/88 (104) 98 Room Air 03/29/17 12:51 83 16 131/93 (106) 98 Nasal Cannula 3 03/29/17 11:47 36.4 114 26 166/101 98 03/29/17 11:39 114 26 166/101 03/29/17 11:37 164/126 03/29/17 11:35 166/135 03/29/17 11:34 111 20 03/29/17 11:33 181/137 03/29/17 11:32 195/126 03/29/17 11:31 176/124 03/29/17 11:30 109 03/29/17 11:29 109 22 03/29/17 11:24 214/137 03/29/17 11:20 36.4 105 24 214/134 98 Review - Discharge Criteria Vital Signs Stable: Yes Alert/Oriented/Conversant: Yes Returned to Baseline Mental St: Yes Nausea Absent/Minimal: Yes Pain/Discomfort/Absent/Minimal: Yes Normal/Baseline Respirations: Yes Active Bleeding?: No Pt Received D/C Instructions: N/A Prescriptions Given: None Specific Proced. D/C Criteria Distal Pulses Present (Cardiac: Yes Groin site assessed-Card Cath: N/A Voided Prior To Discharge: N/A Discharged Patients Adult Escort/Transportation: N/A
[2017-03-29] MEDS: EPTIFIBATIDE INJ 75 MG PREMIXED IV SCH ×2 (14:00→17:45)
[2017-03-29 14:16] LABS: BASO % 0.4 %; BASO ABS # 0.05 K/uL (0-0.2); EOS % 3.5 %; HEMATOCRIT 41.8 % (42-52); IG% 0.8 %; LYMPH % 21.6 %; MEAN CELL VOLUME 97.7 fL (80-100); MEAN CORPUSCULAR HEMOGLOBIN 33.9 pg (25-34); MEAN PLATELET VOLUME 8.9 fL (7.4-10.4); MONO % 7.7 %; PLATELET COUNT 278 K/uL (130-400); RED BLOOD COUNT 4.28 M/uL (4.7-6.1); WHITE BLOOD COUNT 11.55 K/uL (4.8-10.8)
--- NOTE | 2017-03-29 14:20 | Critical Care Consultation ---
Critical Care Consultation Date of Consultation: Mar 29, 2017. Attending Physician: Gorod Flores M.D. Reason for Consultation: ICU evaluation after STEMI and stenting History of Present Illness He presented to [facility] with STEMI that required intervention. The procedure was well tolerated and he is now in the ICU for care. No current chest pain. No dyspnea. No GI/ complaints. Current Rx tolerated. He reports his symptoms originally started on Tuesday with wax and waning character. We talked about tobacco abuse. Last ETOH was PM yesterday with average of 2beers/day. Family History Diabetes mellitus BROTHER Hypertension Social History Smoking Status: Current Some Day Smoker Alcohol Use: 2 beers/day reported Drug Use: none Marital Status: Housing Status: lives with significant other Occupation Status: employed Allergies Coded Allergies: No Known Allergies (Unverified , 05/28/16) Home Medications Scheduled Folic Acid (Folic Acid), 1 MG PO QAM Lactobacillus (Acidophilus), 1 CAP PO TIDM Lisinopril/Hctz (Zestoretic 20MG/12.5MG), 1 TAB PO DAILY Metronidazole (Metronidazole), 500 MG PO TID Pantoprazole (Pantoprazole Sodium), 40 MG PO BID Thiamine HCl (Vitamin B-1), 100 MG PO QAM Scheduled PRN Tramadol (Ultram), 50 MG PO Q6H PRN for Pain Current Inpatient Medications Current Inpatient Medications Medications (Trade) Dose Ordered Sig/Johnny Route Start Time Stop Time Status Last Admin Dose Admin Nitroglycerin (Nitrostat Tab) 0.4 mg UD PRN SL 03/29/17 13:15 04/28/17 13:14 UNV Atropine Sulfate (Atropine Sulfate 0.1MG/Ml Inj) 0.5 mg ONE PRN IV 03/29/17 13:15 04/28/17 13:14 UNV Ondansetron HCl (Zofran Inj) 4 mg Q6H PRN IV 03/29/17 13:15 04/28/17 13:14 UNV Aspirin (Ecotrin Tab) 81 mg QAM PO 03/30/17 09:00 04/29/17 08:59 UNV Atorvastatin Calcium (Lipitor Tab) 80 mg QAM PO 03/30/17 09:00 04/29/17 08:59 UNV Metoprolol Tartrate (Lopressor Tab) 25 mg Q12 PO 03/29/17 21:00 04/28/17 20:59 UNV Lisinopril (Zestril Tab) 20 mg QAM PO 03/30/17 09:00 04/29/17 08:59 UNV Acetaminophen (Tylenol Tab) 650 mg Q4H PRN PO 03/29/17 13:15 04/28/17 13:14 UNV Morphine Sulfate (MoRPHine SULFATE INJ) 2 mg Q5M PRN IV 03/29/17 13:15 04/12/17 13:14 UNV Lorazepam 0.5 mg/ Syringe 0.25 ml @ 1 mls/min Q6H PRN IV 03/29/17 13:15 04/28/17 13:14 UNV Eptifibatide (Integrilin Bolus / Drip) 1 ea ONE ONCE IV 03/29/17 13:15 03/29/17 13:16 UNV Atorvastatin Calcium (Lipitor Tab) 80 mg NOW PO 03/29/17 13:15 04/28/17 13:14 UNV Potassium Chloride/Sodium Chloride 1,000 ml @ 125 mls/hr Q8H IV 03/29/17 13:12 04/28/17 13:11 UNV Lorazepam (Ativan Tab) 1 mg Q6H PRN PO 03/29/17 13:15 04/28/17 13:14 UNV Al Hydrox/Mg Hydrox/Simethicone (Maalox Max Susp) 15 ml Q4H PRN PO 03/29/17 13:15 04/28/17 13:14 UNV Magnesium Hydroxide (Milk Of Magnesia Susp) 30 ml Q12H PRN PO 03/29/17 13:15 04/28/17 13:14 UNV Folic Acid (Folvite Tab) 1 mg QAM PO 03/30/17 09:00 04/29/17 08:59 UNV Pantoprazole Sodium (Protonix Tab) 40 mg BID PO 03/29/17 21:00 04/28/17 20:59 UNV Thiamine HCl (Vitamin B-1 Tab) 100 mg QAM PO 03/30/17 09:00 04/29/17 08:59 UNV Tramadol HCl (Ultram Tab) 50 mg Q6H PRN PO 03/29/17 13:15 04/28/17 13:14 UNV Non-Formulary Medication (Lactobacillus (Acidophilus)) 1 cap TIDM PO 03/29/17 16:30 04/28/17 17:59 UNV Eptifibatide 100 ml @ 16 mls/hr Q6H15M IV 03/29/17 14:00 03/29/17 19:00 Miscellaneous (Stop Order) 1 ea TODAY@1900 ONCE N/A 03/29/17 19:00 03/29/17 19:01 Review of Systems No chest pain. No dyspnea. No GI/ complaints. He reports knee and left hip pain that are work related. Would like a nicoderm patch. No new focal neuro complaints. No issues with current medications. Remaining ROS was negative at this point. Physical Exam Date Time Temp Pulse Resp B/P (MAP) Pulse Ox O2 Delivery O2 Flow Rate FiO2 03/29/17 13:16 83 16 135/96 (109) 97 Room Air 03/29/17 13:04 84 16 136/88 (104) 98 Room Air 03/29/17 12:51 83 16 131/93 (106) 98 Nasal Cannula 3 03/29/17 11:47 36.4 114 26 166/101 98 03/29/17 11:39 114 26 166/101 03/29/17 11:37 164/126 03/29/17 11:35 166/135 03/29/17 11:34 111 20 03/29/17 11:33 181/137 03/29/17 11:32 195/126 03/29/17 11:31 176/124 03/29/17 11:30 109 03/29/17 11:29 109 22 03/29/17 11:24 214/137 03/29/17 11:20 36.4 105 24 214/134 98 Gen--no distress HEENT--sclera pale, no focal changes. Respiratory--exchange is good Cardio--rate and volume ok. No JVD. Pulses acceptable. No edema GI--functional/obese/normal --neg Neuro--no focal changes. Musculo--OA changes. No hot or erythematous joints suggested Psych--appropriate Derm--no new lesions appreciated. Laboratory Results Last 24 Hours Test 03/29/17 11:30 03/29/17 11:34 03/29/17 13:53 White Blood Count 10.46 K/uL Red Blood Count 4.54 M/uL Hemoglobin 15.5 g/dL Hematocrit 44.8 % Mean Corpuscular Volume 98.7 fL Mean Corpuscular Hemoglobin 34.1 pg Mean Corpuscular Hemoglobin Concent 34.6 g/dl Platelet Count 275 K/uL Mean Platelet Volume 9.0 fL Neutrophils (%) (Auto) 60.3 % Lymphocytes (%) (Auto) 25.4 % Monocytes (%) (Auto) 9.8 % Eosinophils (%) (Auto) 3.3 % Basophils (%) (Auto) 0.6 % Neutrophils # (Auto) 6.31 K/uL Lymphocytes # (Auto) 2.66 K/uL Monocytes # (Auto) 1.03 K/uL Eosinophils # (Auto) 0.34 K/uL Basophils # (Auto) 0.06 K/uL RDW Standard Deviation 49.7 fL RDW Coefficient of Variation 13.8 % Immature Granulocyte % (Auto) 0.6 % Immature Granulocyte # (Auto) 0.06 K/uL Sodium Level 138 mmol/L Potassium Level 4.0 mmol/L Chloride Level 102 mmol/L Carbon Dioxide Level 27 mmol/L Anion Gap 9.0 mmol/L 19.0 mmol/L Blood Urea Nitrogen 17 mg/dl Creatinine 0.99 mg/dl Est Creatinine Clear Calc Drug Dose 95.9 ml/min Estimated GFR () 99.7 Estimated GFR (Non- 86.0 BUN/Creatinine Ratio 17.0 Random Glucose 111 mg/dl Calcium Level 9.7 mg/dl Total Creatine Kinase 335 U/L Creatine Kinase MB 5.5 ng/ml Creatine Kinase MB Ratio 1.6 Troponin I 1.290 ng/ml Bedside Hemoglobin 16.0 g/dl Bedside Hematocrit 47 % Bedside Sodium 138 mEq/L Bedside Potassium 4.1 mEq/L Bedside Chloride 98 mEq/L Bedside Total CO2 26 mEq/l Bedside Blood Urea Nitrogen 18 mg/dl Bedside Creatinine 0.9 mg/dl Bedside Glucose (other) 118 mg/dl Bedside Ionized Calcium (Nani) 1.18 mmol/l Assessment & Plan STEMI now post procedure in the ICU 1. Cardio--cardiology managing the situation--will track 2. Pulmonary--toilette 3. GI--OBR 4. Neuropsych--nicoderm--mindful for withdraw-- 5. Endo--on statin 6. Dispo--pending cardiology continued post procedural care.
[2017-03-29 14:22] LABS: COMPLETE YES; MEAN CORPUSCULAR HGB CONC 34.7 g/dl (32-36)
[2017-03-29] MEDS ORDERED: ATORVASTATIN 20 MG TAB PO ONE (14:30)
--- NOTE | 2017-03-29 14:37 | History and Physical ---
History & Physical Date & Time of Service: Mar 29, 2017 at 14:36 Chief Complaint: Ami Anterior Wall Primary Care Physician: Tesfaye Santana M.D. 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 Patient reports left sided chest pain started on Tuesday which resolved after 2 hours and he thought it to be secondary to indigestion. This morning patient had sudden onset of retrosternal chest pain, pressure like, radiates to left arm, 9/ 10 intensity while he was lifting heavy object at work and he drove to ED for further evaluation. Reports associated SOB, nausea, dizziness and palpitations. Currently states has minimal chest pain. Denies any history of vomiting, diaphoresis, fever, chills, Abdominal pain, diarrhea, urinary symptoms, cough, wheezing, headache. Reports chronic knee pain and left hip pain. 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 Status: Chronic (4) Dyslipidemia Status: Chronic (5) History of Clostridium difficile Status: Chronic (6) History of GI bleed Permanent Comment: secondary to esophageal ulceration on EGD 11/29/2013 Status: Chronic (7) hyperhidrosis Status: Chronic (8) Hypertension Status: Chronic (9) Portal hypertensive gastropathy Status: Chronic (10) RBBB Status: Chronic (11) Renal artery stenosis Permanent Comment: questionable Status: Chronic (12) Rhabdomyolysis Status: Resolved (13) Tobacco user Status: Chronic Surgical Problems: (1) H/O esophagogastroduodenoscopy Permanent Comment: 11/29/2013- Large lower esophageal ulceration. No bleeding. Portal hypertensive gastropathy. Erythematous duodenopathy. Normal 2nd part of the duodenum. Status: Chronic Family History Diabetes mellitus BROTHER Hypertension Reviewed. Social History Smoking Status: Current Some Day Smoker Alcohol Use: 2 beers/day reported Drug Use: none Marital Status: Housing status: lives with family Occupational Status: employed Immunizations History of Influenza Vaccine: No History of Tetanus Vaccine?: Yes History of Pneumococcal: No History of Hepatitis B Vaccine: Yes Multi-Drug Resistant Organisms History of MDRO: No Allergies Coded Allergies: No Known Allergies (Unverified , 05/28/16) Home Medications Scheduled Folic Acid (Folic Acid), 1 MG PO QAM Lactobacillus (Acidophilus), 1 CAP PO TIDM Lisinopril/Hctz (Zestoretic 20MG/12.5MG), 1 TAB PO DAILY Metronidazole (Metronidazole), 500 MG PO TID Pantoprazole (Pantoprazole Sodium), 40 MG PO BID Thiamine HCl (Vitamin B-1), 100 MG PO QAM Scheduled PRN Tramadol (Ultram), 50 MG PO Q6H PRN for Pain Review of Systems See HPI for pertinent positives & negatives. A total of 10 systems reviewed and were otherwise negative. Physical Exam Vital Signs Date Time Temp Pulse Resp B/P (MAP) Pulse Ox O2 Delivery O2 Flow Rate FiO2 03/29/17 14:16 86 23 136/101 (113) 97 Room Air 03/29/17 14:01 82 18 153/95 (114) 97 Room Air 03/29/17 13:45 88 18 155/110 (125) 98 Room Air 03/29/17 13:26 71 19 154/95 (114) 97 Room Air 03/29/17 13:16 83 16 135/96 (109) 97 Room Air 03/29/17 13:04 84 16 136/88 (104) 98 Room Air 03/29/17 12:51 83 16 131/93 (106) 98 Nasal Cannula 3 03/29/17 11:47 36.4 114 26 166/101 98 03/29/17 11:39 114 26 166/101 03/29/17 11:37 164/126 03/29/17 11:35 166/135 03/29/17 11:34 111 20 03/29/17 11:33 181/137 03/29/17 11:32 195/126 03/29/17 11:31 176/124 03/29/17 11:30 109 03/29/17 11:29 109 22 03/29/17 11:24 214/137 03/29/17 11:20 36.4 105 24 214/134 98 General Appearance: WD/WN, no apparent distress Head: normocephalic, atraumatic Eyes: normal inspection, PERRL, EOMI ENT: normal ENT inspection, hearing grossly normal Neck: supple, trachea midline Respiratory/Chest: chest non-tender, lungs clear, no respiratory distress, no accessory muscle use Cardiovascular: regular rate, rhythm, no edema, no murmur Abdomen/GI: normal bowel sounds, non tender, soft Back: normal inspection Extremities/Musculoskelatal: normal inspection, no pedal edema Neurologic/Psych: radio frequency technician II-XII nml as tested, no motor/sensory deficits, alert, normal mood/affect, oriented x 3 Skin: normal color, warm/dry Diagnostics Laboratory Results Results Past 24 Hours Test 03/29/17 11:30 03/29/17 11:34 03/29/17 13:53 Range/Units White Blood Count 10.46 11.55 4.8-10.8 K/uL Red Blood Count 4.54 4.28 4.7-6.1 M/uL Hemoglobin 15.5 14.5 14.0-18.0 g/dL Hematocrit 44.8 41.8 42-52 % Mean Corpuscular Volume 98.7 97.7 80-100 fL Mean Corpuscular Hemoglobin 34.1 33.9 25-34 pg Mean Corpuscular Hemoglobin Concent 34.6 34.7 32-36 g/dl Platelet Count 275 278 130-400 K/uL Mean Platelet Volume 9.0 8.9 7.4-10.4 fL Neutrophils (%) (Auto) 60.3 66.0 % Lymphocytes (%) (Auto) 25.4 21.6 % Monocytes (%) (Auto) 9.8 7.7 % Eosinophils (%) (Auto) 3.3 3.5 % Basophils (%) (Auto) 0.6 0.4 % Neutrophils # (Auto) 6.31 7.62 1.4-6.5 K/uL Lymphocytes # (Auto) 2.66 2.50 1.2-3.4 K/uL Monocytes # (Auto) 1.03 0.89 0.11-0.59 K/uL Eosinophils # (Auto) 0.34 0.40 0-0.5 K/uL Basophils # (Auto) 0.06 0.05 0-0.2 K/uL RDW Standard Deviation 49.7 48.9 36.4-46.3 fL RDW Coefficient of Variation 13.8 13.7 11.5-14.5 % Immature Granulocyte % (Auto) 0.6 0.8 % Immature Granulocyte # (Auto) 0.06 0.09 0.00-0.02 K/uL Sodium Level 138 136-145 mmol/L Potassium Level 4.0 3.5-5.1 mmol/L Chloride Level 102 98-107 mmol/L Carbon Dioxide Level 27 21-32 mmol/L Anion Gap 9.0 19.0 16-25 mmol/L Blood Urea Nitrogen 17 7-18 mg/dl Creatinine 0.99 0.60-1.40 mg/dl Est Creatinine Clear Calc Drug Dose 95.9 ml/min Estimated GFR () 99.7 Estimated GFR (Non- 86.0 BUN/Creatinine Ratio 17.0 10-20 Random Glucose 111 70-99 mg/dl Calcium Level 9.7 8.5-10.1 mg/dl Total Creatine Kinase 335 39-308 U/L Creatine Kinase MB 5.5 0.5-3.6 ng/ml Creatine Kinase MB Ratio 1.6 0-3.0 Troponin I 1.290 0-0.045 ng/ml Bedside Hemoglobin 16.0 14.0-18.0 g/dl Bedside Hematocrit 47 42-52 % Bedside Sodium 138 135-144 mEq/L Bedside Potassium 4.1 3.3-5.0 mEq/L Bedside Chloride 98 101-112 mEq/L Bedside Total CO2 26 24-31 mEq/l Bedside Blood Urea Nitrogen 18 7-18 mg/dl Bedside Creatinine 0.9 0.6-1.3 mg/dl Bedside Glucose (other) 118 70-99 mg/dl Bedside Ionized Calcium (Nani) 1.18 1.12-1.32 mmol/l Diagnostic Radiology CXR: Low lung volumes with no acute cardiopulmonary abnormality. EKG EKG; Sinus tachycardia Left anterior fascicular block ST elevation in anterior and inferolateral leads Impression Assessment and Plan STEMI S/P PCI JEFFREY Risk factors: HTN, HLP, Tobacco and alcohol use Monitor in ICU Continue ASA, Brillinta, Lipitor, BB, Lisinopril Cardiology on board ECHO, Lipid panel, A1C Counselled to quit smoking/alcohol use Alcohol use disorder: Watch for withdrawal Start Thiamine, folic acid Ativan PRN Tobacco use disorder: Nicotine patch Counselled to quit HTN: Stable Continue current meds H/O Hepatitis C: Follow up as outpatient HLP: Continue statins Lipid panel in AM DVT Px: SCDs Code Status: Full Code VTE Prophylaxis VTE Risk Assessment Done? Y/N: Yes Risk Level: Moderate
[2017-03-29 14:47] LABS: BLOOD UREA NITROGEN 14 mg/dl (7-18); BUN/CREATININE RATIO 16.4 (10-20); CALCIUM 9.5 mg/dl (8.5-10.1); CARBON DIOXIDE 24 mmol/L (21-32); CHLORIDE 103 mmol/L (98-107); CHOLESTEROL 153 mg/dl (0-200); CHOLESTEROL/HDL RATIO 2.9; CREATININE 0.87 mg/dl (0.60-1.40); GLUCOSE 93 mg/dl (70-99); HDL CHOLESTEROL 52 mg/dl; MAGNESIUM 1.9 mg/dl (1.8-2.4); POTASSIUM 4.3 mmol/L (3.5-5.1); SODIUM 135 mmol/L (136-145); TRIGLYCERIDES 50 mg/dl (0-150); VERY LOW DENSITY LIPOPROT CALC 10 mg/dl
[2017-03-29] MEDS ORDERED: LORAZEPAM 1 MG TAB PO PRN (15:15)
--- NOTE | 2017-03-29 15:20 | Cardiac Catheterization ---
Procedure Note Procedure Date Mar 29, 2017. Pre-Procedure Diagnosis STEMI AUC Score 9 Post-Procedure Diagnosis Severe CAD, Successful PCI, Decreased LV Systolic Function, Normal Intracardiac Pressures Procedure(s) Performed Coronary Angiography, Left Heart Cath, LV Angiography, PTCA, Drug Eluting Stent Mule Tender Dr. Mcfarland Power Hair Clipper(s) ANNE MARIE Hanks Estimated Blood Loss 25 Medication(s) Fentanyl, Heparin, Integrilin, Metoprolol, Nicardipine (Intra-arterial and intracoronary), Nitroglycerin (Intracoronary), Versed, Lidocaine 1% Ticagrelor 180 mg PO post PCI Summary of Findings Clinical indications: Acute anterior myocardial infarction. History of hypertension, dyslipidemia, and cigarette smoking. Denies history of diabetes mellitus. He denies family history of premature coronary artery disease. Catheterization site: 6 Martiniquais slender glide sheath. Catheters: 6 Martiniquais EBU 3.75 guide catheter, 6 Martiniquais JR4 diagnostic catheter, 6 Martiniquais pigtail catheter. Interventional equipment: 6 Martiniquais EBU 3.75 guide catheter, [employer] [place] guidewire, [place] Trek 2.5 x 12 millimeter balloon dilatation catheter, [place] [employer] Hair Resolute Integrity 3 x 22 millimeter drug-eluting stent, [facility] [place] Trek 3.5 x 8 millimeter noncompliant balloon dilatation catheter. Interventional protocol: Intravenous heparin and Integrilin were 1st administered. Therapeutic activated clotting time was documented. Two balloon inflations with the Trek 2.5 x 12 millimeter balloon to the proximal LAD. Maximum pressure of 15 atmospheres. Maximum duration of 15 seconds. Stent was deployed at a pressure of 16 atmospheres for 45 seconds in the proximal LAD. The stent was post dilated with a noncompliant balloon. Three inflations. All for 14 atmospheres for duration of 15 seconds. follow-up angiography was performed from orthogonal projections with guidewires placed in guidewire withdrawn. Right coronary angiography and left heart catheterization performed following completion of LAD PCI. At the completion of procedure the patient was given a loading dose of ticagrelor 180 milligrams p.o.. Hemostasis: Terumo TR band. Complications: None. Findings: On initial left coronary angiography performed with the guide catheter a subtotal proximal LAD occlusion was noted. AURORA 1 flow past the occlusion. Prior to passage of the guidewire in the LAD AURORA 2 flow was present into the mid and distal LAD. Following balloon angioplasty to the proximal LAD AURORA 3 flow was present in the LAD. Following balloon angioplasty there was diffuse 30-50 percent narrowing in the proximal LAD. Following stent deployment the residual stenosis at the stent site was 0-10 percent. There was a step-up and step-down prior to and distal to the stent respectively. There was no evidence of dissection, thrombus, perforation, or distal embolic event. AURORA 3 flow was present in the LAD. AURORA 3 flow was present in the LAD diagonal arteries. The very proximal LAD gave rise to a very small caliber and short 1st diagonal artery. The initial subtotal occlusion was located just after this diagonal. A long small caliber 2nd diagonal artery was present just distal to the original occlusion. The ostium of the 2nd diagonal had a 30 percent stenosis. After the origin of this diagonal the mid LAD had a 20 percent stenosis. The remainder of the mid distal LAD had no obstructive disease. The distal LAD wrapped around the apex of the heart as a very small caliber vessel. The left main coronary artery was a long large caliber vessel without obstructive disease. It gave rise to the medium to large caliber left anterior descending coronary artery, a medium caliber ramus intermedius coronary artery, and a medium caliber left circumflex coronary artery. The ramus had no obstructive disease. It was a bifurcating vessel. It was a long vessel. Mid circumflex gave rise to a bifurcating small to medium caliber marginal artery which had no obstructive disease. The right coronary was a large caliber vessel. Its mid segment had a 20 percent stenosis. The distal RCA gave rise to a long small caliber posterior descending artery. This vessel had no obstructive disease. The distal RCA continued on as a medium caliber vessel. The distal RCA gave rise to 3 small caliber posterolateral branches which had no obstructive disease. Left ventricular angiography performed from the 30 degree right anterior oblique projection with a hand injection of contrast dye revealed the apex and anterolateral segments to be hypokinetic. Other LV segments contracted normally. Calculated LV ejection fraction 52 percent. The left ventricular end-diastolic pressure was 6 millimeters of mercury. No mitral regurgitation. Plan: Admit to the intensive care unit. The patient was given a loading dose of oral ticagrelor post PCI. He will remain on intravenous Integrilin for 6 hours postprocedure. He should be treated with dual antiplatelet therapy for least 1 year. Should remain on aspirin therapy indefinitely. Will maintain on Willie inhibitor therapy with lisinopril. Will be started on beta-jb therapy with metoprolol and statin therapy with maximum dose of atorvastatin. Serial electrocardiograms, cardiac enzymes, CBCs, and metabolic profiles ordered. Check hemoglobin A1c and lipid profile. Echocardiogram to further assess left ventricular wall motion and systolic function. Hemodynamics Rest Ao: 157/103/130 mm Hg Final Ao: 125/88/107 mm Hg LV: 129/6 mm Hg Recommendations Medical therapy and/or Counseling, PCI without planned CABG Specimens None Radiation Exposure (mGy) 4066 Contrast (mls) 290 ml Visipaque Fluids (cc crystalloids) 125 ml Drains none Procedural Complication(s) None Disposition ICU ACC Data Cardiac Status Clinical evaluation leading to the procedure CAD Presntation: STEMI Anginal Classification: CCS IV Heart Failure: No Cardiogenic Shock w/in 24Hrs: No Cardiac Arrest w/in 24Hrs: No Imaging studies past 6 months: No Stress studies past 6 months: No Standard Exercise Stress Test: No Stress Echocardiogram: No Stress Testing w/SPECT MPI: No Cardiac CTA: No Coronary Anatomy Dominant: Right Left Main (% Stenosis): Normal LAD (% Stenosis): Proximal (99), Mid (20) D1 (% Stenosis): Normal D2 (% Stenosis): Ostial (30) Circumflex (% Stenosis): Normal OM1 (% Stenosis): Normal RCA (% Stenosis): Mid (20) R PDA (% Stenosis): Normal R PL1 (% Stenosis): Normal R PL2 (% Stenosis): Normal Ramus (% Stenosis): Normal Left Ventricular Angiography EF (%): 52 Wall Motion: Inferior (Normal), Apical (Hypokinetic), Anterior (Hypokinetic) Mitral Regurgitation: None Diagnostic Physician's Name: Iker Mcfarland M.D. Status: Emergency Closure Device Percutaneous Entry Location: Radial Closure Device: Radial Band Recommendations: Medical therapy and/or Counseling, PCI without planned CABG PCI Indication: Immediate PCI for STEMI First Noted: First EKG Lesion Segment Name: Proximal LAD Culprit Artery: Yes Stenosis Prior to Rx (%): 99 Chronic Total Occlusion: No IVUS: No FFR: No Pre-Procedure AURORA Flow: 1 Previously Treated Lesion: No Lesion Complexity: Non-High/Non-C Lesion Length (mm): 20 Thrombus Present: Yes Bifurcation Lesion: No Guidewire Across Lesion: Yes Guidewire: Stenosis Post-Procedure (%): 0-10 Post-Procedure AURORA Flow: 3 Device(s) Deployed: Yes Type of Device(s): Medtronic Resolute Integrity 3 x 22 millimeter drug-eluting stent. Post dilated with 3.5 millimeter diameter noncompliant balloon to at least nominal pressure. Intraprocedure Events Significant Dissection: No Perforation: No
[2017-03-29] MEDS: NSS + 20MEQ KCL 1000ML 1,000 ML IV SCH ×2 (15:42→23:16)
[2017-03-29] MEDS: LACTOBACILLUS ACIDOPHILUS (FLORANEX) TAB PO SCH (15:43)
[2017-03-29] MEDS: MoRPHine SULFATE 2 MG/ML CARP IV PRN ×3 (15:44→23:53)
[2017-03-29] MEDS: TRAMADOL HCL 50 MG TAB PO PRN ×2 (15:44→23:53)
[2017-03-29] MEDS: NICOTINE 21 MG/24 HR TDSY TD SCH (16:20)
[2017-03-29 16:29] LABS: ESTIMATED AVERAGE GLUCOSE 131 mg/dl; HA1C FLAG Normal (Normal)
[2017-03-29] MEDS ORDERED: METOPROLOL TARTRATE 25 MG TAB PO ONE (16:33)
--- NOTE | 2017-03-29 16:41 | Cardiology Consultation ---
Cardiology Consultation Date of Consultation: Mar 29, 2017 History of Present Illness Lobo Pinzon is a 56 year old male seen in general cardiology consultation per the request of Dr Wheeler for ongoing care with the patient having presented today with complaints of severe chest discomfort with diagnosis of anterior, lateral, ST segment elevation myocardial infarction. The patient states that he did vigorous yard work on Tuesday and felt chest discomfort and felt like he was not quite himself. 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 A stat EKG performed on presentation to the emergency department on 03/29/17 11: 25 AM of significant anterior and lateral ST segment elevation consistent with an acute transmural ST segment elevation myocardial infarction. The patient underwent emergent coronary angiography and percutaneous coronary intervention by Dr. Mcfarland per the "heart alert " protocol. The patient is noted to have a super dominant coronary artery system. A 90% proximal LAD stenosis was noted for which patient underwent pertains coronary intervention with implantation of a 3 x 22 mm resolute drug-eluting stent with excellent angiographic results. The patient was seen by the undersigned in the intensive care unit, room 103 postprocedure he was comfortable. His postprocedure EKG revealed complete resolution of the nurse noted ST segment elevation. He did have mild residual chest discomfort that he was feeling much improved compared to preprocedure. Past Medical/Surgical History Problem List: Medical Problems: (1) Abdominal pain (2) NUBIA (acute kidney injury) (3) Alcohol abuse (4) Alcohol intoxication (5) AMI anterior wall (6) Benign hypertension (7) Coronary artery disease -newly diagnosed, today, 03/29/2017- (8) Dyslipidemia (9) History of Clostridium difficile (10) History of GI bleed (11) hyperhidrosis (12) Hypertension (13) Portal hypertensive gastropathy (14) RBBB (15) Renal artery stenosis (16) Rhabdomyolysis (17) Suicidal ideations (18) Tobacco user Surgical Problems: (1) H/O esophagogastroduodenoscopy Review Of Systems See above for pertinent positives & negatives. A total of 10 systems reviewed and were otherwise negative. Allergies Coded Allergies: No Known Allergies (Unverified , 05/28/16) Medications Reported Home Medications Medications Dose Route/Sig Max Daily Dose Days Date Category Vitamin B-1 (Thiamine HCl) 100 Mg Tab 100 Mg PO QAM 10/26/16 Rx Folic Acid 1 Mg Tab 1 Mg PO QAM 10/26/16 Rx Pantoprazole Sodium (Pantoprazole) 40 Mg Tab 40 Mg PO BID 10/26/16 Rx Acidophilus (Lactobacillus) 1 Cap Cap 1 Cap PO TIDM 10/26/16 Rx Metronidazole 500 Mg Tab 500 Mg PO TID 10/26/16 Rx Ultram (Tramadol HCl) 50 Mg Tab 50 Mg PO Q6H PRN 10/25/16 Reported Zestoretic 20MG/12.5MG (HCTZ/Lisinopril) Tab 1 Tab PO DAILY 10/25/16 Reported Physical Exam Vital Signs (Last 8hrs): Last 8 Hrs Date Time Temp Pulse Resp B/P (MAP) Pulse Ox O2 Delivery O2 Flow Rate FiO2 03/29/17 16:00 36.8 91 20 153/105 (121) 100 Room Air 03/29/17 15:15 86 20 172/108 (129) 100 Room Air 03/29/17 14:45 77 24 156/100 (118) 98 Room Air 03/29/17 14:20 36.6 80 16 136/101 95 Room Air 03/29/17 14:16 86 23 136/101 (113) 97 Room Air 03/29/17 14:01 82 18 153/95 (114) 97 Room Air 03/29/17 13:45 88 18 155/110 (125) 98 Room Air 03/29/17 13:26 71 19 154/95 (114) 97 Room Air 03/29/17 13:16 83 16 135/96 (109) 97 Room Air 03/29/17 13:04 84 16 136/88 (104) 98 Room Air 03/29/17 12:51 83 16 131/93 (106) 98 Nasal Cannula 3 03/29/17 11:47 36.4 114 26 166/101 98 03/29/17 11:39 114 26 166/101 03/29/17 11:37 164/126 03/29/17 11:35 166/135 03/29/17 11:34 111 20 03/29/17 11:33 181/137 03/29/17 11:32 195/126 03/29/17 11:31 176/124 03/29/17 11:30 109 03/29/17 11:29 109 22 03/29/17 11:24 214/137 03/29/17 11:20 36.4 105 24 214/134 98 General Appearance: Alert and Oriented x3. NAD. Head: Normocephalic Atraumatic. Eyes: PERRLA, EOMI, conjunctiva and sclera clear Neck: Supple. No carotid bruits noted. No JVD. No HJD. Respiratory: Breath sounds clear to auscultation bilaterally. No w/r/r. Cardiovascular: Reg rate and rhythm. S1 and S2 noted. No murmurs, rubs, gallops. PMI non displace. Abdomen: Normal bowel sounds, soft nontender. no abdominal bruits. Extremities: No edema, no clubbing or cyanosis. distal pulses 2/4 bilaterally. Neuro: No focal deficits. Psychiatric: Normal affect. Data Last Resulted 03/29/17 13:53 Red Blood Count 4.28, Mean Corpuscular Volume 97.7, Mean Corpuscular Hemoglobin 33.9, Mean Corpuscular Hemoglobin Concent 34.7, Mean Platelet Volume 8.9, Neutrophils (%) (Auto) 66.0, Lymphocytes (%) (Auto) 21.6, Monocytes (%) (Auto) 7.7, Eosinophils (%) (Auto) 3.5, Basophils (%) (Auto) 0.4, Neutrophils # (Auto) 7.62, Lymphocytes # (Auto) 2.50, Monocytes # (Auto) 0.89, Eosinophils # (Auto) 0.40, Basophils # (Auto) 0.05 Last Resulted 03/29/17 13:53 Past 24 Hours Test 03/29/17 11:30 03/29/17 13:53 Range/Units Creatine Kinase MB 5.5 H 0.5-3.6 ng/ml Creatine Kinase MB Ratio 1.6 0-3.0 Total Creatine Kinase 335 H 39-308 U/L Troponin I 1.290 *H 3.950 *H 0-0.045 ng/ml EKG: As per history of present illness Telemetry reviewed: Sinus rhythm. Assessment & Plan Impression: 56-year-old male 1. Acute anterior, anterolateral ST segment elevation myocardial infarction for which patient underwent emergent cardiac catheterization and received drug- eluting stent to the proximal LAD. He had no significant residual disease elsewhere. It is noted that he had a super dominant right coronary artery system, with no significant circumflex coronary branches. 2. Ongoing cigarette smoking 3. Hypertension 4. Dyslipidemia 5. History of past alcohol dependence, patient states he is only drinking "a few" drinks per night Discussion/recommendation: Given the nature of his thrombotic occlusion, he was treated with Integrilin per - procedure is to remain on this until his evening as per orders placed by Dr. Mcfarland of interventional cardiology.He was loaded with Brilinta. He does have a history of gastrointestinal bleeding due to peptic 2014 with an esophageal ulceration noted at that time. Repeat EGD in 2016 revealed no significant ongoing problems. If there are concerns regarding compliance as his hospitalization develops, we need to consider transitioning him to clopidogrel as this was a once a day drug may be more affordable for the patient. I have already initiated the process of looking into what his [id number] cost would be for a course of Brilinta. Metoprolol 25 mg twice a day has been ordered, will start with first dose now. Lisinopril 20 mg by mouth daily and torsemide 80 mg by mouth daily have been ordered. Patient is going to be observed in the intensive care unit. He'll be monitored closely for symptoms of alcohol withdrawal, prophylactic lorazepam has been ordered by the primary team. An echocardiogram has been requested which will be performed and reviewed tomorrow. Case discussed with Dr. Mcfarland and Dr. Delarosa. Mack Deras DO, FACC, FACOI Associate Sales Account Manager [facility] [place] [place] [facility]
--- NOTE | 2017-03-29 17:45 | EMERGENCY ROOM VISIT NOTE ---
History Report prepared by Roro: Nolan James Under the Supervision of: Dr. Rex Manuel D.O. First contact with patient: 11:25 Chief Complaint: CHEST PAIN Stated Complaint: CHEST PAIN, SOB History of Present Illness The patient is a 56 year old male who presents to the Emergency Room with complaints of constant chest pain beginning 1 hour ago. He also complains of arm pain and shortness of breath. He notes that he had an episode of similar pain occur two days ago for two hours which was resolved with Lorazepam and rest. 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 His pain is worsened with exertion. He is a smoker. The patient has a history of hyperlipidemia and hypertension. Source of History: patient Onset: 1 hour ago Position: chest Timing: constant Modifying Factors (Worsening): exertion Associated Symptoms: + SOB Note: The patient also complains of arm pain. Review of Systems See HPI for pertinent positives & negatives. A total of 10 systems reviewed and were otherwise negative. 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 (12) Hypertension (13) Portal hypertensive gastropathy (14) RBBB (15) Renal artery stenosis (16) Rhabdomyolysis (17) Suicidal ideations (18) Tobacco user Surgical Problems: (1) H/O esophagogastroduodenoscopy Family History Diabetes mellitus BROTHER Hypertension Social History Smoking Status: Current Every Day Smoker Alcohol Use: heavy Drug Use: none Marital Status: Housing Status: lives with significant other Occupation Status: employed Current/Historical Medications Scheduled Folic Acid (Folic Acid), 1 MG PO QAM Lactobacillus (Acidophilus), 1 CAP PO TIDM Lisinopril/Hctz (Zestoretic 20MG/12.5MG), 1 TAB PO DAILY Metronidazole (Metronidazole), 500 MG PO TID Pantoprazole (Pantoprazole Sodium), 40 MG PO BID Thiamine HCl (Vitamin B-1), 100 MG PO QAM Scheduled PRN Tramadol (Ultram), 50 MG PO Q6H PRN for Pain Allergies Coded Allergies: No Known Allergies (Unverified , 05/28/16) Physical Exam Vital Signs Date Time Temp Pulse Resp B/P (MAP) Pulse Ox O2 Delivery O2 Flow Rate FiO2 03/29/17 13:16 83 16 135/96 (109) 97 Room Air 03/29/17 13:04 84 16 136/88 (104) 98 Room Air 03/29/17 12:51 83 16 131/93 (106) 98 Nasal Cannula 3 03/29/17 11:47 36.4 114 26 166/101 98 03/29/17 11:39 114 26 166/101 03/29/17 11:37 164/126 03/29/17 11:35 166/135 03/29/17 11:34 111 20 03/29/17 11:33 181/137 03/29/17 11:32 195/126 03/29/17 11:31 176/124 03/29/17 11:30 109 03/29/17 11:29 109 22 03/29/17 11:24 214/137 03/29/17 11:20 36.4 105 24 214/134 98 Physical Exam GENERAL: Sitting up in bed, ill appearing, moderate distress. EYE EXAM: normal conjunctiva. OROPHARYNX: no exudate, no erythema, lips, buccal mucosa, and tongue normal and mucous membranes are moist NECK: supple, no nuchal rigidity, no adenopathy, non-tender LUNGS: Clear to auscultation. Normal chest wall mechanics HEART: Tachycardic, no murmurs, S1 normal and S2 normal ABDOMEN: abdomen soft, non-tender, normo-active bowel sounds, no masses, no rebound or guarding. UPPER EXTREMITIES: upper extremities are grossly normal. LOWER EXTREMITIES: No pitting edema. NEURO EXAM: Normal sensorium, cranial nerves II-XII grossly intact, normal speech, no gross weakness of arms, no gross weakness of legs. Medical Decision & Procedures ER Provider Diagnostic Interpretation: PORTABLE UPRIGHT AP CHEST X-RAY interpreted by me: No enlarged mediastinum. No focal infiltrate. Slightly enlarged cardiac silhouette. Laboratory Results Test 03/29/17 11:30 03/29/17 11:34 03/29/17 12:00 Total Creatine Kinase 335 U/L (39-308) Creatine Kinase MB 5.5 ng/ml (0.5-3.6) Creatine Kinase MB Ratio 1.6 (0-3.0) Bedside Hemoglobin 16.0 g/dl (14.0-18.0) Bedside Hematocrit 47 % (42-52) Bedside Sodium 138 mEq/L (135-144) Bedside Potassium 4.1 mEq/L (3.3-5.0) Bedside Chloride 98 mEq/L (101-112) Bedside Total CO2 26 mEq/l (24-31) Bedside Blood Urea Nitrogen 18 mg/dl (7-18) Bedside Creatinine 0.9 mg/dl (0.6-1.3) Bedside Glucose (other) 118 mg/dl (70-99) Bedside Ionized Calcium (Nani) 1.18 mmol/l (1.12-1.32) Kaolin Activated Coagulation Time 395 SECONDS (94-140) Laboratory results per my review. Medications Administered Medications (Trade) Dose Ordered Sig/Johnny Route Start Time Stop Time Status Last Admin Dose Admin Nitroglycerin (Nitrostat Tab) 0.4 mg STK-MED ONCE .ROUTE 03/29/17 11:30 03/29/17 11:31 DC 03/29/17 11:30 0.4 MG Sodium Chloride 1,000 ml @ 999 mls/hr Q1H1M STAT IV 03/29/17 11:36 03/29/17 12:36 DC 03/29/17 11:36 999 MLS/HR Heparin Sodium (Porcine) (Heparin Iv Bolus) 10,000 unit STK-MED ONCE .ROUTE 03/29/17 11:37 03/29/17 11:38 DC 03/29/17 11:37 10,000 UNIT Midazolam HCl (Versed Inj) 2 mg STK-MED ONCE .ROUTE 03/29/17 11:38 03/29/17 11:39 DC 03/29/17 11:38 2 MG Fentanyl Citrate (Fentanyl Inj) 100 mcg STK-MED ONCE .ROUTE 03/29/17 11:38 03/29/17 11:39 DC 03/29/17 11:38 100 MCG Eptifibatide (Integrilin Inj) 40 mg STK-MED ONCE IV 03/29/17 12:06 03/29/17 12:07 DC 03/29/17 12:06 40 MG Eptifibatide (Integrilin Inj) 75 mg STK-MED ONCE IV 03/29/17 12:06 03/29/17 12:07 DC 03/29/17 12:06 75 MG Ondansetron HCl (Zofran Inj) 8 mg STK-MED ONCE .ROUTE 03/29/17 12:09 03/29/17 12:10 DC 03/29/17 12:09 8 MG Fentanyl Citrate (Fentanyl Inj) 100 mcg STK-MED ONCE .ROUTE 03/29/17 12:09 03/29/17 12:10 DC 03/29/17 12:09 25 MCG Metoprolol Tartrate (Lopressor Iv) 5 mg STK-MED ONCE .ROUTE 03/29/17 12:47 03/29/17 12:48 DC 03/29/17 12:47 5 MG Morphine Sulfate (MoRPHine SULFATE INJ) 2 mg Q5M PRN IV 03/29/17 13:15 04/12/17 13:14 03/29/17 15:44 2 MG Tramadol HCl (Ultram Tab) 50 mg Q6H PRN PO 03/29/17 13:15 04/28/17 13:14 03/29/17 15:44 50 MG ECG Indication: chest pain Rate (beats per minute): 101 Rhythm: sinus tachycardia Findings: RBBB, ST elevation (anterior, lateral, and inferior leads) Comparison ECG Date: Oct 23, 2016 Change: ST elevations and RBBB are new. ED Course ED COURSE: Vital signs were reviewed and showed tachycardia, and hypertension The patients medical record was reviewed The above diagnostic studies were performed and reviewed. ED treatments and interventions as stated above. 1126: I was called into the room emergently, as the patient's ECG was concerning for STEMI. The patient was evaluated in room A10. A complete history and physical examination was performed. 1130: Ordered Nitrostat Tab 0.4 mg PO. 1131: Dr. Mcfarland is at bedside. 1136: Ordered Sodium Chloride 1000 ml @ 999 mls/hr IV. 1140: The patient appears uncomfortable.Dr. Mcfarland and I discussed findings with the patient and he understands and agrees with the treatment plan. Based on the patients age, coexisting illnesses, exam and lab findings the decision to treat as an inpatient was made. The patient remained stable while under my care. 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 Medical Decision Differential diagnoses includes but is not limited to acute coronary syndrome, myocardial infarction, pericarditis, pulmonary embolus, aortic dissection, pneumonia, pneumothorax, musculoskeletal, shingles, esophageal. Patient is a 56-year-old male who presents the ER with midsternal chest pain which radiated to his left arm and jaw associated with shortness of breath which occurred with exertion. I was called to bedside following an EKG which showed a STEMI in the anterior/lateral leads. A STEMI alert was called. IV was established. Patient was given nitro with slight improvement of his discomfort. He did not give Lopressor as this would've followed up transport to Medical Administrative. He was given a bolus normal saline. Chest x-ray was read at bedside and showed no obvious dissection. Patient was evaluated by cardiology at bedside. Medical Administrative was notified and patient was taken over to Medical Administrative shortly followed presentation. Pacers were placed and patient was transferred on the monitor. Labs eventually resulted following admission and catheterization. Consults Time Called: 1125 Consulting Physician: Dr. Mcfarland -Cardiology Returned Call: 1131 Discussed the patient's case. Dr. Mcfarland will evaluate the patient. Impression Primary Impression: STEMI (ST elevation myocardial infarction) Critical Care I have personally spent 35 minutes of critical care time in the direct management of this patient. This includes bedside care, interpretation of diagnostic studies, and testing, discussion with consultants, patient, and family members, and other required patient management activities. This 35 minutes is in excess of all separately billable procedures. Scribe Attestation The scribe's documentation has been prepared under my direction and personally reviewed by me in its entirety. I confirm that the note above accurately reflects all work, treatment, procedures, and medical decision making performed by me. Departure Information Dispostion Other ([employer]) Referrals Tesfaye Santana M.D. (PCP) Patient Instructions [facility] Problem Qualifiers Primary Impression: STEMI (ST elevation myocardial infarction) Involved coronary artery: unspecified coronary artery Qualified Codes: I21.3 - ST elevation (STEMI) myocardial infarction of unspecified site
[2017-03-29] MEDS ORDERED: Integrelin infusion --> STOP ORDER ONE (19:00)
[2017-03-29] MEDS: LORAZEPAM 1 MG TAB PO PRN (20:39)
[2017-03-29] MEDS: PANTOprazole SOD 40 MG TAB PO SCH (20:42)
[2017-03-29] MEDS: TICAGRELOR 90 MG TAB PO SCH (20:42)
[2017-03-29] MEDS ORDERED: METOPROLOL TARTRATE 25 MG TAB PO SCH (21:00)
[2017-03-30] VITALS (23 sets, daily range): BP systolic 104–158; BP diastolic 71–112; PULSE 73–104; TEMP 36.6–37; O2SAT 93–99
[2017-03-30] MEDS: LORAZEPAM 1 MG TAB PO PRN (03:35)
[2017-03-30] MEDS ORDERED: SODIUM CHLORIDE 0.9% 1000ML 250 ML IV PRN (05:23)
[2017-03-30] MEDS ORDERED: ONDANSETRON INJ 2 MG/ML 2 ML VIAL IV PRN (05:30)
[2017-03-30] MEDS ORDERED: ACETAMINOPHEN 325 MG TAB PO PRN (05:30)
[2017-03-30] MEDS ORDERED: ATROPINE SULFATE 0.1 MG/ML 5ML SYR IV PRN (05:30)
[2017-03-30 06:07] LABS: BASO % 0.2 %; BASO ABS # 0.02 K/uL (0-0.2); COMPLETE YES; EOS % 4.1 %; IG% 0.4 %; LYMPH % 20.3 %; LYMPH ABS # 1.83 K/uL (1.2-3.4); MEAN CELL VOLUME 99.5 fL (80-100); MEAN CORPUSCULAR HEMOGLOBIN 32.9 pg (25-34); MEAN PLATELET VOLUME 9.2 fL (7.4-10.4); MONO % 9.5 %; NEUT % 65.5 %; PLATELET COUNT 255 K/uL (130-400); RED BLOOD COUNT 4.32 M/uL (4.7-6.1); WHITE BLOOD COUNT 9.02 K/uL (4.8-10.8)
[2017-03-30 06:44] LABS: BUN/CREATININE RATIO 13.5 (10-20); CALCIUM 8.8 mg/dl (8.5-10.1); CREATININE 0.97 mg/dl (0.60-1.40); POTASSIUM 4.8 mmol/L (3.5-5.1)
--- NOTE | 2017-03-30 07:39 | Critical Care Progress Note ---
Critical Care Progress Note Date of Service Mar 30, 2017. ICU Day ICU Day Number: [address] Delarosa Subjective No cardiac issues AM today. Pulmonary toilette ok. No volume concerns. Appears to be doing well. Ready to get moving. Objective Gen--no distress HEENT--no focal changes Respiratory--comfortable and compensated Cardio--rate and volume ok GI--functional and nontender --neg Musculo--osteoarthritic complaints Neuro--neg Psych--calm and appropriate Derm--negative Current SOFA Score SOFA Score Response (Comments) Value PaO2/FiO2 (mmHg) < 400 1 SaO2 / FIO2 221 - 301 1 Platelets (x10) > 150 0 Bilirubin (mg/dL) < 1.2 0 Dee Coma Score 15 0 Level of Hypotension No Hypotension 0 Creatinine (mg/dL) < 1.2 0 Total 2 Assessment & Plan STEMI--Cath and Stenting 1. Cardio--per cardiology--no medical ICU concerns 2. Pulmonary--toilette 3. GI--functional 4. Dispo--OK for move out of ICU pending cardiology evaluation and decision Consults & Procedures Consultants: None Procedures: none Data Medications: Current Inpatient Medications Medications (Trade) Dose Ordered Sig/Johnny Route Start Time Stop Time Status Last Admin Dose Admin Nitroglycerin (Nitrostat Tab) 0.4 mg UD PRN SL 03/29/17 13:15 04/28/17 13:14 Atropine Sulfate (Atropine Sulfate 0.1MG/Ml Inj) 0.5 mg ONE PRN IV 03/29/17 13:15 04/28/17 13:14 Ondansetron HCl (Zofran Inj) 4 mg Q6H PRN IV 03/29/17 13:15 04/28/17 13:14 Aspirin (Ecotrin Tab) 81 mg QAM PO 03/30/17 09:00 04/29/17 08:59 Atorvastatin Calcium (Lipitor Tab) 80 mg QAM PO 03/30/17 09:00 04/29/17 08:59 Lisinopril (Zestril Tab) 20 mg QAM PO 03/30/17 09:00 04/29/17 08:59 Acetaminophen (Tylenol Tab) 650 mg Q4H PRN PO 03/29/17 13:15 04/28/17 13:14 Morphine Sulfate (MoRPHine SULFATE INJ) 2 mg Q5M PRN IV 03/29/17 13:15 04/12/17 13:14 03/29/17 23:53 2 MG Lorazepam 0.5 mg/ Syringe 0.25 ml @ 1 mls/min Q6H PRN IV 03/29/17 13:15 04/28/17 13:14 Potassium Chloride/Sodium Chloride 1,000 ml @ 125 mls/hr Q8H IV 03/29/17 14:30 04/28/17 14:29 03/29/17 23:16 125 MLS/HR Lorazepam (Ativan Tab) 1 mg Q6H PRN PO 03/29/17 13:15 04/28/17 13:14 03/30/17 03:35 1 MG Al Hydrox/Mg Hydrox/Simethicone (Maalox Max Susp) 15 ml Q4H PRN PO 03/29/17 13:15 04/28/17 13:14 Magnesium Hydroxide (Milk Of Magnesia Susp) 30 ml Q12H PRN PO 03/29/17 13:15 04/28/17 13:14 Folic Acid (Folvite Tab) 1 mg QAM PO 03/30/17 09:00 04/29/17 08:59 Pantoprazole Sodium (Protonix Tab) 40 mg BID PO 03/29/17 21:00 04/28/17 20:59 03/29/17 20:42 40 MG Thiamine HCl (Vitamin B-1 Tab) 100 mg QAM PO 03/30/17 09:00 04/29/17 08:59 Tramadol HCl (Ultram Tab) 50 mg Q6H PRN PO 03/29/17 13:15 04/28/17 13:14 03/29/17 23:53 50 MG Lactobacillus Acidophilus (Floranex Tab) 1 tab TIDM PO 03/29/17 16:30 04/28/17 17:59 03/29/17 15:43 1 TAB Ticagrelor (Brilinta Cap) 90 mg BID PO 03/29/17 21:00 04/28/17 20:59 03/29/17 20:42 90 MG Nicotine (Nicoderm Cq 21MG Patch) 1 patch QAM TD 03/29/17 15:15 04/28/17 15:14 03/29/17 16:20 1 PATCH Miscellaneous (Remove Nicoderm Patch) 1 ea HS N/A 03/29/17 21:00 04/28/17 20:59 03/29/17 20:42 1 EA Lorazepam (Ativan Tab) 1 mg ONE PRN PO 03/29/17 15:15 Metoprolol Tartrate (Lopressor Tab) 25 mg BID PO 03/30/17 09:00 04/29/17 08:59 Vital Signs: Date Time Temp Pulse Resp B/P (MAP) Pulse Ox O2 Delivery O2 Flow Rate FiO2 03/30/17 06:01 81 16 113/77 (89) 98 Room Air 03/30/17 05:31 88 19 136/102 (113) 96 Room Air 03/30/17 05:01 80 20 115/78 (90) 97 Room Air 03/30/17 04:31 74 15 123/74 (90) 98 Room Air 03/30/17 04:01 36.6 77 17 128/83 (98) 97 Room Air 03/30/17 04:00 Room Air 03/30/17 03:31 79 17 128/89 (102) 98 Room Air 03/30/17 03:01 73 10 132/82 (99) 98 Room Air 03/30/17 02:31 77 12 104/80 (88) 97 Room Air 03/30/17 02:01 73 13 129/86 (100) 97 Room Air 03/30/17 01:36 77 17 118/80 (93) 95 Room Air 03/30/17 01:31 76 15 118/80 (93) 93 Room Air 03/30/17 01:01 76 19 125/86 (99) 97 Room Air 03/30/17 00:31 77 19 114/79 (91) 96 Room Air 03/30/17 00:01 36.8 85 23 123/79 (94) 97 Room Air 03/30/17 00:01 Room Air 03/29/17 23:31 75 14 126/80 (95) 98 Room Air 03/29/17 23:01 77 15 119/78 (92) 98 Room Air 03/29/17 22:31 78 16 127/84 (98) 94 Room Air 03/29/17 22:01 79 18 135/82 (99) 97 Room Air 03/29/17 21:31 79 23 135/84 (101) 97 Room Air 03/29/17 21:01 81 20 159/101 (120) 98 Room Air 03/29/17 20:31 81 16 150/100 (117) 98 Room Air 03/29/17 20:01 36.8 84 16 144/97 (113) 98 Room Air 03/29/17 20:00 Room Air 03/29/17 19:31 90 16 151/103 (119) 97 Room Air 03/29/17 19:01 86 19 141/96 (111) 97 Room Air 03/29/17 18:00 89 21 148/104 (119) 98 Room Air 03/29/17 17:00 85 19 159/102 (121) 98 Room Air 03/29/17 16:00 36.8 91 20 153/105 (121) 100 Room Air 03/29/17 16:00 100 Room Air 03/29/17 15:15 86 20 172/108 (129) 100 Room Air 03/29/17 14:45 77 24 156/100 (118) 98 Room Air 03/29/17 14:20 36.6 80 16 136/101 95 Room Air 03/29/17 14:16 86 23 136/101 (113) 97 Room Air 03/29/17 14:01 82 18 153/95 (114) 97 Room Air 03/29/17 13:45 88 18 155/110 (125) 98 Room Air 03/29/17 13:26 71 19 154/95 (114) 97 Room Air 03/29/17 13:16 83 16 135/96 (109) 97 Room Air 03/29/17 13:04 84 16 136/88 (104) 98 Room Air 03/29/17 12:51 83 16 131/93 (106) 98 Nasal Cannula 3 03/29/17 11:47 36.4 114 26 166/101 98 03/29/17 11:39 114 26 166/101 03/29/17 11:37 164/126 03/29/17 11:35 166/135 03/29/17 11:34 111 20 03/29/17 11:33 181/137 03/29/17 11:32 195/126 03/29/17 11:31 176/124 03/29/17 11:30 109 03/29/17 11:29 109 22 03/29/17 11:24 214/137 03/29/17 11:20 36.4 105 24 214/134 98 Laboratory Results: Last 24 Hours Test 03/29/17 11:30 03/29/17 11:34 03/29/17 12:00 03/29/17 13:53 White Blood Count 10.46 K/uL 11.55 K/uL Red Blood Count 4.54 M/uL 4.28 M/uL Hemoglobin 15.5 g/dL 14.5 g/dL Hematocrit 44.8 % 41.8 % Mean Corpuscular Volume 98.7 fL 97.7 fL Mean Corpuscular Hemoglobin 34.1 pg 33.9 pg Mean Corpuscular Hemoglobin Concent 34.6 g/dl 34.7 g/dl Platelet Count 275 K/uL 278 K/uL Mean Platelet Volume 9.0 fL 8.9 fL Neutrophils (%) (Auto) 60.3 % 66.0 % Lymphocytes (%) (Auto) 25.4 % 21.6 % Monocytes (%) (Auto) 9.8 % 7.7 % Eosinophils (%) (Auto) 3.3 % 3.5 % Basophils (%) (Auto) 0.6 % 0.4 % Neutrophils # (Auto) 6.31 K/uL 7.62 K/uL Lymphocytes # (Auto) 2.66 K/uL 2.50 K/uL Monocytes # (Auto) 1.03 K/uL 0.89 K/uL Eosinophils # (Auto) 0.34 K/uL 0.40 K/uL Basophils # (Auto) 0.06 K/uL 0.05 K/uL RDW Standard Deviation 49.7 fL 48.9 fL RDW Coefficient of Variation 13.8 % 13.7 % Immature Granulocyte % (Auto) 0.6 % 0.8 % Immature Granulocyte # (Auto) 0.06 K/uL 0.09 K/uL Sodium Level 138 mmol/L 135 mmol/L Potassium Level 4.0 mmol/L 4.3 mmol/L Chloride Level 102 mmol/L 103 mmol/L Carbon Dioxide Level 27 mmol/L 24 mmol/L Anion Gap 9.0 mmol/L 19.0 mmol/L 8.0 mmol/L Blood Urea Nitrogen 17 mg/dl 14 mg/dl Creatinine 0.99 mg/dl 0.87 mg/dl Est Creatinine Clear Calc Drug Dose 95.9 ml/min 108.0 ml/min Estimated GFR () 99.7 113.4 Estimated GFR (Non- 86.0 97.8 BUN/Creatinine Ratio 17.0 16.4 Random Glucose 111 mg/dl 93 mg/dl Calcium Level 9.7 mg/dl 9.5 mg/dl Total Creatine Kinase 335 U/L Creatine Kinase MB 5.5 ng/ml Creatine Kinase MB Ratio 1.6 Troponin I 1.290 ng/ml 3.950 ng/ml Bedside Hemoglobin 16.0 g/dl Bedside Hematocrit 47 % Bedside Sodium 138 mEq/L Bedside Potassium 4.1 mEq/L Bedside Chloride 98 mEq/L Bedside Total CO2 26 mEq/l Bedside Blood Urea Nitrogen 18 mg/dl Bedside Creatinine 0.9 mg/dl Bedside Glucose (other) 118 mg/dl Bedside Ionized Calcium (Nani) 1.18 mmol/l Kaolin Activated Coagulation Time 395 SECONDS Estimated Average Glucose 131 mg/dl Hemoglobin A1c 6.2 % Magnesium Level 1.9 mg/dl Triglycerides Level 50 mg/dl Cholesterol Level 153 mg/dl HDL Cholesterol 52 mg/dl LDL Cholesterol Direct 91 mg/dl LDL Cholesterol, Calculated mg/dl VLDL Cholesterol, Calculated 10 mg/dl Cholesterol/HDL Ratio 2.9 Hepatitis C Antibody Screen PRELIM POS Test 03/29/17 15:49 03/29/17 20:51 03/29/17 21:02 03/30/17 05:32 Bedside Glucose 139 mg/dl 100 mg/dl Troponin I 20.700 ng/ml 16.500 ng/ml White Blood Count 9.02 K/uL Red Blood Count 4.32 M/uL Hemoglobin 14.2 g/dL Hematocrit 43.0 % Mean Corpuscular Volume 99.5 fL Mean Corpuscular Hemoglobin 32.9 pg Mean Corpuscular Hemoglobin Concent 33.0 g/dl Platelet Count 255 K/uL Mean Platelet Volume 9.2 fL Neutrophils (%) (Auto) 65.5 % Lymphocytes (%) (Auto) 20.3 % Monocytes (%) (Auto) 9.5 % Eosinophils (%) (Auto) 4.1 % Basophils (%) (Auto) 0.2 % Neutrophils # (Auto) 5.90 K/uL Lymphocytes # (Auto) 1.83 K/uL Monocytes # (Auto) 0.86 K/uL Eosinophils # (Auto) 0.37 K/uL Basophils # (Auto) 0.02 K/uL RDW Standard Deviation 50.3 fL RDW Coefficient of Variation 13.9 % Immature Granulocyte % (Auto) 0.4 % Immature Granulocyte # (Auto) 0.04 K/uL Sodium Level 137 mmol/L Potassium Level 4.8 mmol/L Chloride Level 105 mmol/L Carbon Dioxide Level 27 mmol/L Anion Gap 5.0 mmol/L Blood Urea Nitrogen 13 mg/dl Creatinine 0.97 mg/dl Est Creatinine Clear Calc Drug Dose 96.9 ml/min Estimated GFR () 102.2 Estimated GFR (Non- 88.1 BUN/Creatinine Ratio 13.5 Random Glucose 104 mg/dl Calcium Level 8.8 mg/dl Test 03/30/17 05:35 Bedside Glucose 114 mg/dl
[2017-03-30] MEDS: TRAMADOL HCL 50 MG TAB PO PRN ×3 (08:23→21:10)
[2017-03-30] MEDS: TICAGRELOR 90 MG TAB PO SCH (08:24)
[2017-03-30] MEDS: LACTOBACILLUS ACIDOPHILUS (FLORANEX) TAB PO SCH ×4 (08:24→16:45)
[2017-03-30] MEDS: PANTOprazole SOD 40 MG TAB PO SCH ×2 (08:24→21:09)
[2017-03-30] MEDS: NICOTINE 21 MG/24 HR TDSY TD SCH (08:24)
[2017-03-30] MEDS: ATORVASTATIN 40 MG TAB PO SCH (08:25)
[2017-03-30] MEDS: LISINOPRIL 5 MG TAB PO SCH (08:25)
[2017-03-30] MEDS: THIAMINE HCL 100 MG TAB PO SCH (08:25)
[2017-03-30] MEDS: ASPIRIN 81 MG ECTAB PO SCH (08:26)
--- NOTE | 2017-03-30 08:46 | ECHOCARDIOGRAM REPORT ---
*NOTICE TO RECEIVING CONSTITUTION PARTY AGENCY This information is strictly Confidential and protected under [place] law. [place] law prohibits you from making any further disclosure of this information unless further disclosure is expressly permitted by the written consent of the person to whom it pertains or is authorized by law. A general authorization for the release of medical or other information is not sufficient for this purpose. Hospital accepts no responsibility if the information is made available to any other person, INCLUDING THE PATIENT. Interpretation Summary * Name: JAZMIN PARK Study Date: 03/30/2017 06:47 AM BP: 113/77 mmHg * Patient Location: .MSICU\S\E103\S\1 HR: 87 * : 1960 (M/d/yyyy) Gender: Male Height: 67 in * Age: 56 yrs Ethnicity: [place] Weight: 227 lb * Ordering Physician: Iker Mcfarland * Referring Physician: Self, Referred * Performed By: Preethi Chamorro [facility] * * Reason For Study: AMI * BSA: 2.1 m2 * The study was technically adequate. * -- Conclusions -- * There is mild concentric left ventricular hypertrophy. * There is a large sized apical, septal, anteroseptal, and inferior wall motion abnormality with hypokinesis to akinesis of the segments. * Left ventricular systolic function is moderate to severely reduced. * The LV Ejection Fraction = 30-35%. * Aortic valve sclerosis mild, without significant aortic valvular stenosis. * Diastolic dysfunction, Grade II (pseudonormalization pattern). Procedure Details * A complete two-dimensional transthoracic echocardiogram was performed (2D, M-mode, Doppler and color flow Doppler). * A contrast injection of Definity was performed to improve assessment of LV function. * Contrast was injected into an intravenous site in the left arm. * One vial of Definity ultrasound contrast was diluted in normal saline to a total volume of 10 ml. A total of '3' ml of solution was administered during imaging. * Lot # [id number] of Definity utilized for procedure. * Expiration date MAY 06. * The attending nurse who injected the contrast agent was VICKI JANSEN RN. Left Ventricle * The left ventricle is normal in size. * There is mild concentric left ventricular hypertrophy. * Left ventricular systolic function is moderate to severely reduced. * Ejection Fraction = 30-35%. * There is a large sized apical, septal, anteroseptal, and inferior wall motion abnormality with hypokinesis to akinesis of the segments. Right Ventricle * The right ventricle is normal size. * The right ventricular systolic function is normal as assessed by tricuspid annular plane systolic excursion (TAPSE) (normal >1.5 cm). Atria * The left atrial size is normal. * Right atrial size is normal. * There is no evidence of atrial septal defect, but resolution does not allow assessment for a patent foramen ovale. Mitral Valve * The mitral valve is normal. * There is no mitral valve stenosis. * Significant mitral regurgitation is absent. Tricuspid Valve * The tricuspid valve is normal. * There is no tricuspid stenosis. * Significant tricuspid regurgitation is absent. * Doppler findings do not suggest pulmonary hypertension. Aortic Valve * The aortic valve is trileaflet. * Aortic valve sclerosis mild, without significant aortic valvular stenosis. * Aortic stenosis is absent. * Mild aortic regurgitation. Pulmonic Valve * The pulmonary valve is not well seen, but the Doppler examination is normal without significant regurgitation or stenosis. Great Vessels * The aortic root and proximal ascending aorta are normal sized. Pericardium/Pleural * There is no pericardial effusion. * There is an echodensisty in the pericardial space consistent with pericardial fat. Great Vessels * Normal inferior vena cava diameter and respiratory variation suggests normal central venous pressure. Left Ventricular Diastolic Function * Diastolic dysfunction, Grade II (pseudonormalization pattern). MMode 2D Measurements and Calculations IVSd 1.6 cm IVSs 1.8 cm LVIDd 3.4 cm LVIDs 2.8 cm LVPWd 1.3 cm LVPWs 1.7 cm IVS/LVPW 1.3 FS 19.3 % EDV(Teich) 48.1 ml ESV(Teich) 28.6 ml EF(Teich) 40.7 % EDV(cubed) 40.0 ml ESV(cubed) 21.1 ml EF(cubed) 47.4 % % IVS thick 12.8 % % LVPW thick 33.6 % LV mass(C)d 177.8 grams LV mass(C)dI 83.3 grams/m\S\2 LV mass(C)s 191.4 grams LV mass(C)sI 89.7 grams/m\S\2 SV(Teich) 19.6 ml SI(Teich) 9.2 ml/m\S\2 SV(cubed) 19.0 ml SI(cubed) 8.9 ml/m\S\2 Ao root diam 3.8 cm Ao root area 11.6 cm\S\2 ACS 2.5 cm LA dimension 3.5 cm LA/Ao 0.92 LVOT diam 2.0 cm LVOT area 3.3 cm\S\2 LVAd ap4 48.1 cm\S\2 LVLd ap4 10.1 cm EDV(MOD-sp4) 187.1 ml EDV(sp4-el) 194.8 ml LVAs ap4 38.3 cm\S\2 LVLs ap4 10.2 cm ESV(MOD-sp4) 115.3 ml ESV(sp4-el) 122.6 ml EF(MOD-sp4) 38.4 % EF(sp4-el) 37.1 % LVAd ap2 55.4 cm\S\2 LVLd ap2 10.7 cm EDV(MOD-sp2) 235.2 ml EDV(sp2-el) 243.6 ml LVAs ap2 42.0 cm\S\2 LVLs ap2 9.7 cm ESV(MOD-sp2) 146.1 ml ESV(sp2-el) 153.9 ml EF(MOD-sp2) 37.9 % EF(sp2-el) 36.8 % LVLd %diff 5.7 % EDV(MOD-bp) 212.5 ml LVLs %diff -4.62 % ESV(MOD-bp) 131.8 ml EF(MOD-bp) 38.0 % SV(MOD-sp4) 71.9 ml SI(MOD-sp4) 33.7 ml/m\S\2 SV(MOD-sp2) 89.1 ml SI(MOD-sp2) 41.7 ml/m\S\2 SV(MOD-bp) 80.7 ml SI(MOD-bp) 37.8 ml/m\S\2 SV(sp4-el) 72.2 ml SI(sp4-el) 33.8 ml/m\S\2 SV(sp2-el) 89.7 ml SI(sp2-el) 42.0 ml/m\S\2 Doppler Measurements and Calculations MV E max madeline 60.5 cm/sec MV A max madeline 48.1 cm/sec MV E/A 1.3 MV P1/2t max madeline 71.8 cm/sec MV P1/2t 43.4 msec MVA(P1/2t) 5.1 cm\S\2 MV dec slope 484.6 cm/sec\S\2 MV dec time 0.19 sec Ao V2 max 100.0 cm/sec Ao max PG 4.0 mmHg Ao max PG (full) 1.2 mmHg EJ(V,A) 2.7 cm\S\2 EJ(V,D) 2.7 cm\S\2 AI max madeline 483.2 cm/sec AI max PG 93.4 mmHg AI dec slope 289.0 cm/sec\S\2 AI P1/2t 489.7 msec LV V1 max PG 2.8 mmHg LV V1 max 83.3 cm/sec PA V2 max 64.7 cm/sec PA max PG 1.7 mmHg
[2017-03-30] MEDS ORDERED: METOPROLOL TARTRATE 25 MG TAB PO SCH (09:00)
[2017-03-30] MEDS ORDERED: THIAMINE HCL 100 MG TAB PO SCH (09:00)
--- NOTE | 2017-03-30 09:31 | Cardiology Follow-Up ---
Subjective General Date of Service: Mar 30, 2017. Chief Complaint: follow-up chest discomfort, LAD territory ST segment elevation AR Pt evaluation today including: conversation w/ patient History of Present Illness The patient is a 56 year old male seen in cardiology follow-up. Overnight he had vague chest discomfort that is completely resolved at present. His only complaint is his knee pain which is characteristic of his chronic osteoarthritis complaints. He is out of bed in the bedside chair. He is mildly tachycardic with a heart rate of 100 -109 bpm recently on telemetry while out of bed and eating. Telemetry reveals sinus rhythm and mild sinus tachycardia with no ventricular arrhythmias. EKG performed this morning 03/30/17 reveals continued resolution of the noted anteroseptal anterior ST elevation that was present on his presenting EKG before his emergent cardiac catheterization. He now has developed septal Q waves however in leads V1 and V2. Allergies Coded Allergies: No Known Allergies (Unverified , 05/28/16) Social History Smoking Status: Current Every Day Smoker Hx Tobacco Use In Past Year?: Yes Hx Alcohol Use - Type And Amou: Yes (4 beers a day) Hx Substance Use - Type And Am: No Problem List Medical Problems: (1) Abdominal pain Status: Acute (2) Acute gastroenteritis Status: Acute (3) Alcohol withdrawal Status: Acute (4) Colitis Status: Acute (5) Dehydration Status: Acute (6) Dehydration Status: Acute (7) Diarrhea Status: Acute (8) Diffuse abdominal pain Status: Acute (9) Failure of outpatient treatment Status: Acute (10) Mood disorder Status: Acute (11) STEMI (ST elevation myocardial infarction) Status: Acute (12) Transaminitis Status: Acute Physical Exam Vital Signs Last Vital Signs Documentation Date Time Temp Pulse Resp B/P (MAP) Pulse Ox O2 Delivery O2 Flow Rate FiO2 03/30/17 08:31 99 23 143/87 (105) 97 Room Air 03/30/17 08:02 36.8 03/29/17 12:51 3 Physical Exam Constitutional: Level of Distress: NAD Head: normocephalic Neck: supple Lungs: Auscultation: no wheezing, no rales/crackles, no rhonchi Cardiovascular: Heart Auscultation: RRR, no murmurs, no rubs Musculoskeletal: normal Extremities: no cyanosis, no edema, no varicosities, pertinent finding (right radial puncture site is clean dry and intact with no evidence of hematoma.) Neurologic: Gait & Station: pertinent finding (no focal deficits) Assessment and Plan Assessment and Plan Summary of transthoracic echocardiogram, performed 03/30/17 and reviewed independently: * -- Conclusions -- * There is mild concentric left ventricular hypertrophy. * There is a large sized apical, septal, anteroseptal, and inferior wall motion abnormality with hypokinesis to akinesis of the segments. * Left ventricular systolic function is moderate to severely reduced. * The LV Ejection Fraction = 30-35%. * Aortic valve sclerosis mild, without significant aortic valvular stenosis. * Diastolic dysfunction, Grade II (pseudonormalization pattern). Impression: 56-year-old male 1. Acute anterior, anterolateral ST segment elevation myocardial infarction for which patient underwent emergent cardiac catheterization and received drug- eluting stent to the proximal LAD. He had no significant residual disease elsewhere. It is noted that he had a super dominant right coronary artery system, with no significant circumflex coronary branches. Follow-up echocardiogram performed on post procedure day one has yielded moderate to severe left ventricular systolic dysfunction with apical akinesis, septal akinesis, and anterior wall hypokinesis. Wall motion abnormality wraps around the left ventricular apex and continues to the apical and mid inferior segments. 2. Ongoing cigarette smoking 3. Hypertension 4. Dyslipidemia 5. History of past alcohol dependence, patient states he is only drinking "a few" drinks per night Discussion/recommendation: Patient with mild sinus tachycardia with minimal activity today however no ventricular arrhythmias on telemetry. No riddhi signs of alcohol withdrawal at present. His blood pressure is still above goal and his heart rate is above goal. Given the left ventricular systolic dysfunction, I'm going to discontinue his metoprolol tartrate and start evidence based beta jb for LV systolic dysfunction, carvedilol, at 6.25 mg by mouth twice a day. Continue lisinopril 20 mg daily. Continue atorvastatin 80 mg daily. Continue aspirin 81 mg daily. I have concerns regarding ongoing therapy with Brilinta. Although this would perhaps be the ideal antiplatelet medication given his proximal LAD JEFFREY with large AR, this agent carries with it a higher risk of bleeding compared to clopidogrel. Also he has a history of past and perhaps current alcohol use with past alcohol-related gastritis and an esophageal ulcer on past EGD. In addition to risks of bleeding complications with this agent I am concerned about adherence is it is 2 times per day medication as compared to one time per day dosing for clopidogrel. I have discussed my concerns with Dr. Mcfarland of interventional cardiology, and at this point, I'm going to discontinue Brilinta after this am's dose, and start plavix load of 300 mg this am at 2100, then clopidogrel 75 mg daily in 03/31/17. Patient is stable for transfer to telemetry from my standpoint and we can increase activity as tolerated. Given his myocardial infarction left ventricular systolic dysfunction and left ventricular ejection fraction in the 30-35% range, this does place him at risk for early ventricular arrhythmia/send cardiac post AR and I therefore believe that the [employer] LifeVest wearable defibrillator is indicated until we reassess his ejection fraction 3 months post intervention. I'm optimistic that his LV systolic dysfunction is in part due to myocardial stunning and that this will recover. Unfortunately he is not having any ventricular arrhythmias at present which is a positive sign. I explained to him the rationale for this and he was willing to try it. I completed the order form. 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 He carries heavy items , including tools, and climbs ladders for this. I do not think he is going to be ready for this activity within the next week, and I think he will likely require short-term disability for at least the next 2-3 weeks. Told him that I could help prepare the forms of therapy provided. Patient is eager to be discharged, and I recommended that he needs to stay in the hospital for further titration of medications. Laboratory Results Last 24 Hours Test 03/29/17 11:30 03/29/17 11:34 03/29/17 12:00 03/29/17 13:53 White Blood Count 10.46 K/uL 11.55 K/uL Red Blood Count 4.54 M/uL 4.28 M/uL Hemoglobin 15.5 g/dL 14.5 g/dL Hematocrit 44.8 % 41.8 % Mean Corpuscular Volume 98.7 fL 97.7 fL Mean Corpuscular Hemoglobin 34.1 pg 33.9 pg Mean Corpuscular Hemoglobin Concent 34.6 g/dl 34.7 g/dl Platelet Count 275 K/uL 278 K/uL Mean Platelet Volume 9.0 fL 8.9 fL Neutrophils (%) (Auto) 60.3 % 66.0 % Lymphocytes (%) (Auto) 25.4 % 21.6 % Monocytes (%) (Auto) 9.8 % 7.7 % Eosinophils (%) (Auto) 3.3 % 3.5 % Basophils (%) (Auto) 0.6 % 0.4 % Neutrophils # (Auto) 6.31 K/uL 7.62 K/uL Lymphocytes # (Auto) 2.66 K/uL 2.50 K/uL Monocytes # (Auto) 1.03 K/uL 0.89 K/uL Eosinophils # (Auto) 0.34 K/uL 0.40 K/uL Basophils # (Auto) 0.06 K/uL 0.05 K/uL RDW Standard Deviation 49.7 fL 48.9 fL RDW Coefficient of Variation 13.8 % 13.7 % Immature Granulocyte % (Auto) 0.6 % 0.8 % Immature Granulocyte # (Auto) 0.06 K/uL 0.09 K/uL Sodium Level 138 mmol/L 135 mmol/L Potassium Level 4.0 mmol/L 4.3 mmol/L Chloride Level 102 mmol/L 103 mmol/L Carbon Dioxide Level 27 mmol/L 24 mmol/L Anion Gap 9.0 mmol/L 19.0 mmol/L 8.0 mmol/L Blood Urea Nitrogen 17 mg/dl 14 mg/dl Creatinine 0.99 mg/dl 0.87 mg/dl Est Creatinine Clear Calc Drug Dose 95.9 ml/min 108.0 ml/min Estimated GFR () 99.7 113.4 Estimated GFR (Non- 86.0 97.8 BUN/Creatinine Ratio 17.0 16.4 Random Glucose 111 mg/dl 93 mg/dl Calcium Level 9.7 mg/dl 9.5 mg/dl Total Creatine Kinase 335 U/L Creatine Kinase MB 5.5 ng/ml Creatine Kinase MB Ratio 1.6 Troponin I 1.290 ng/ml 3.950 ng/ml Bedside Hemoglobin 16.0 g/dl Bedside Hematocrit 47 % Bedside Sodium 138 mEq/L Bedside Potassium 4.1 mEq/L Bedside Chloride 98 mEq/L Bedside Total CO2 26 mEq/l Bedside Blood Urea Nitrogen 18 mg/dl Bedside Creatinine 0.9 mg/dl Bedside Glucose (other) 118 mg/dl Bedside Ionized Calcium (Nani) 1.18 mmol/l Kaolin Activated Coagulation Time 395 SECONDS Estimated Average Glucose 131 mg/dl Hemoglobin A1c 6.2 % Magnesium Level 1.9 mg/dl Triglycerides Level 50 mg/dl Cholesterol Level 153 mg/dl HDL Cholesterol 52 mg/dl LDL Cholesterol Direct 91 mg/dl LDL Cholesterol, Calculated mg/dl VLDL Cholesterol, Calculated 10 mg/dl Cholesterol/HDL Ratio 2.9 Hepatitis C Antibody Screen PRELIM POS Test 03/29/17 15:49 03/29/17 20:51 03/29/17 21:02 03/30/17 05:32 Bedside Glucose 139 mg/dl 100 mg/dl Troponin I 20.700 ng/ml 16.500 ng/ml White Blood Count 9.02 K/uL Red Blood Count 4.32 M/uL Hemoglobin 14.2 g/dL Hematocrit 43.0 % Mean Corpuscular Volume 99.5 fL Mean Corpuscular Hemoglobin 32.9 pg Mean Corpuscular Hemoglobin Concent 33.0 g/dl Platelet Count 255 K/uL Mean Platelet Volume 9.2 fL Neutrophils (%) (Auto) 65.5 % Lymphocytes (%) (Auto) 20.3 % Monocytes (%) (Auto) 9.5 % Eosinophils (%) (Auto) 4.1 % Basophils (%) (Auto) 0.2 % Neutrophils # (Auto) 5.90 K/uL Lymphocytes # (Auto) 1.83 K/uL Monocytes # (Auto) 0.86 K/uL Eosinophils # (Auto) 0.37 K/uL Basophils # (Auto) 0.02 K/uL RDW Standard Deviation 50.3 fL RDW Coefficient of Variation 13.9 % Immature Granulocyte % (Auto) 0.4 % Immature Granulocyte # (Auto) 0.04 K/uL Sodium Level 137 mmol/L Potassium Level 4.8 mmol/L Chloride Level 105 mmol/L Carbon Dioxide Level 27 mmol/L Anion Gap 5.0 mmol/L Blood Urea Nitrogen 13 mg/dl Creatinine 0.97 mg/dl Est Creatinine Clear Calc Drug Dose 96.9 ml/min Estimated GFR () 102.2 Estimated GFR (Non- 88.1 BUN/Creatinine Ratio 13.5 Random Glucose 104 mg/dl Calcium Level 8.8 mg/dl Test 03/30/17 05:35 Bedside Glucose 114 mg/dl
[2017-03-30] MEDS ORDERED: CARVEDILOL 6.25 MG TAB PO ONE (09:45)
--- NOTE | 2017-03-30 19:55 | Progress Note ---
Medicine Progress Note Date & Time of Visit: Mar 30, 2017 at 19:46. Subjective Pt was seen and examined Sitting in bed comfortable with no distress talking to his daughter Pt said that he is having a lot of pain in his right knee due to his arthritis Denies any chest pain, palpitation, dizziness and SOB Objective Last 8 Hrs Date Time Temp Pulse Resp B/P (MAP) Pulse Ox O2 Delivery O2 Flow Rate FiO2 03/30/17 18:58 36.9 87 20 125/78 (94) 99 Room Air 03/30/17 15:50 37.0 82 18 114/71 (85) 97 Room Air 03/30/17 14:52 36.9 78 20 114/74 (87) 98 Room Air 03/30/17 14:01 36.7 77 24 98 03/30/17 12:03 36.7 77 24 132/88 (103) 98 Room Air 03/30/17 12:00 Room Air Physical Exam: General- No acute distress Head- atraumatic Eyes- PERRL, EOMI ENT- oropharynx clear Neck- supple, no JVD Lungs- clear to auscultation Heart- regular rhythm Abdomen- normal bowel sounds, soft Extremities- no calf tenderness, right knee pain Neuro- alert, oriented x 3; PERRL, EOMI Skin- warm & dry Laboratory Results: Last 24 Hours Test 03/29/17 20:51 03/29/17 21:02 03/30/17 05:32 03/30/17 05:35 Bedside Glucose 100 mg/dl 114 mg/dl Troponin I 20.700 ng/ml 16.500 ng/ml White Blood Count 9.02 K/uL Red Blood Count 4.32 M/uL Hemoglobin 14.2 g/dL Hematocrit 43.0 % Mean Corpuscular Volume 99.5 fL Mean Corpuscular Hemoglobin 32.9 pg Mean Corpuscular Hemoglobin Concent 33.0 g/dl Platelet Count 255 K/uL Mean Platelet Volume 9.2 fL Neutrophils (%) (Auto) 65.5 % Lymphocytes (%) (Auto) 20.3 % Monocytes (%) (Auto) 9.5 % Eosinophils (%) (Auto) 4.1 % Basophils (%) (Auto) 0.2 % Neutrophils # (Auto) 5.90 K/uL Lymphocytes # (Auto) 1.83 K/uL Monocytes # (Auto) 0.86 K/uL Eosinophils # (Auto) 0.37 K/uL Basophils # (Auto) 0.02 K/uL RDW Standard Deviation 50.3 fL RDW Coefficient of Variation 13.9 % Immature Granulocyte % (Auto) 0.4 % Immature Granulocyte # (Auto) 0.04 K/uL Sodium Level 137 mmol/L Potassium Level 4.8 mmol/L Chloride Level 105 mmol/L Carbon Dioxide Level 27 mmol/L Anion Gap 5.0 mmol/L Blood Urea Nitrogen 13 mg/dl Creatinine 0.97 mg/dl Est Creatinine Clear Calc Drug Dose 96.9 ml/min Estimated GFR () 102.2 Estimated GFR (Non- 88.1 BUN/Creatinine Ratio 13.5 Random Glucose 104 mg/dl Calcium Level 8.8 mg/dl Assessment & Plan STEMI S/P PCI JEFFREY Risk factors: HTN, HLP, Tobacco and alcohol use denies any chest pain currently was transferred from ICU to telemetry Continue ASA, Brillinta, Lipitor, BB, Lisinopril cardiology changed the Brillinta to Plavix Received plavix 300mg today Cardiology on board Echo showed: * There is mild concentric left ventricular hypertrophy. * There is a large sized apical, septal, anteroseptal, and inferior wall motion abnormality with hypokinesis to akinesis of the segments. * Left ventricular systolic function is moderate to severely reduced. * The LV Ejection Fraction = 30-35%. * Aortic valve sclerosis mild, without significant aortic valvular stenosis. * Diastolic dysfunction, Grade II (pseudonormalization pattern). Alcohol use disorder No signs of alcohol withdraw Continue Thiamine, folic acid Ativan PRN Tobacco use disorder Nicotine patch Counseling about smoking cessation HTN: Stable Continue current med H/O Hepatitis C Stable HLP Continue statins Lipid panel in AM DVT Px SCDs Code Status Full Code Consultants: Cardiology Current Inpatient Medications: Current Inpatient Medications Medications (Trade) Dose Ordered Sig/Johnny Route Start Time Stop Time Status Last Admin Dose Admin Nitroglycerin (Nitrostat Tab) 0.4 mg UD PRN SL 03/29/17 13:15 04/28/17 13:14 Atropine Sulfate (Atropine Sulfate 0.1MG/Ml Inj) 0.5 mg ONE PRN IV 03/29/17 13:15 04/28/17 13:14 Ondansetron HCl (Zofran Inj) 4 mg Q6H PRN IV 03/29/17 13:15 04/28/17 13:14 Future Hold Aspirin (Ecotrin Tab) 81 mg QAM PO 03/30/17 09:00 04/29/17 08:59 03/30/17 08:26 81 MG Atorvastatin Calcium (Lipitor Tab) 80 mg QAM PO 03/30/17 09:00 04/29/17 08:59 03/30/17 08:25 80 MG Lisinopril (Zestril Tab) 20 mg QAM PO 03/30/17 09:00 04/29/17 08:59 03/30/17 08:25 20 MG Acetaminophen (Tylenol Tab) 650 mg Q4H PRN PO 03/29/17 13:15 04/28/17 13:14 Morphine Sulfate (MoRPHine SULFATE INJ) 2 mg Q5M PRN IV 03/29/17 13:15 04/12/17 13:14 03/29/17 23:53 2 MG Lorazepam 0.5 mg/ Syringe 0.25 ml @ 1 mls/min Q6H PRN IV 03/29/17 13:15 04/28/17 13:14 Lorazepam (Ativan Tab) 1 mg Q6H PRN PO 03/29/17 13:15 04/28/17 13:14 03/30/17 03:35 1 MG Al Hydrox/Mg Hydrox/Simethicone (Maalox Max Susp) 15 ml Q4H PRN PO 03/29/17 13:15 04/28/17 13:14 Magnesium Hydroxide (Milk Of Magnesia Susp) 30 ml Q12H PRN PO 03/29/17 13:15 04/28/17 13:14 Folic Acid (Folvite Tab) 1 mg QAM PO 03/30/17 09:00 04/29/17 08:59 03/30/17 08:26 1 MG Pantoprazole Sodium (Protonix Tab) 40 mg BID PO 03/29/17 21:00 04/28/17 20:59 03/30/17 08:24 40 MG Thiamine HCl (Vitamin B-1 Tab) 100 mg QAM PO 03/30/17 09:00 04/29/17 08:59 03/30/17 08:25 100 MG Tramadol HCl (Ultram Tab) 50 mg Q6H PRN PO 03/29/17 13:15 04/28/17 13:14 03/30/17 15:21 50 MG Lactobacillus Acidophilus (Floranex Tab) 1 tab TIDM PO 03/29/17 16:30 04/28/17 17:59 03/30/17 08:24 1 TAB Nicotine (Nicoderm Cq 21MG Patch) 1 patch QAM TD 03/29/17 15:15 04/28/17 15:14 03/30/17 08:24 1 PATCH Miscellaneous (Remove Nicoderm Patch) 1 ea HS N/A 03/29/17 21:00 04/28/17 20:59 03/29/17 20:42 1 EA Lorazepam (Ativan Tab) 1 mg ONE PRN PO 03/29/17 15:15 Carvedilol (Coreg Tab) 6.25 mg BID PO 03/30/17 21:00 04/29/17 20:59 Clopidogrel Bisulfate (plAVix TAB) 300 mg TODAY@2100 PO 03/30/17 21:00 03/30/17 21:01 Clopidogrel Bisulfate (plAVix TAB) 75 mg QAM PO 03/31/17 09:00 04/30/17 08:59
[2017-03-30] MEDS ORDERED: CLOPIDOGREL BISULFATE 300 MG TAB PO SCH (21:00)
[2017-03-30] MEDS: CARVEDILOL 6.25 MG TAB PO SCH (21:10)
[2017-03-31] VITALS (9 sets, daily range): BP systolic 106–133; BP diastolic 60–78; PULSE 66–93; TEMP 36.6–37.3; O2SAT 96–98
[2017-03-31 06:16] LABS: BASO % 0.3 %; BASO ABS # 0.03 K/uL (0-0.2); COMPLETE YES; EOS % 4.5 %; HEMATOCRIT 42.7 % (42-52); IG% 0.6 %; LYMPH % 23.1 %; MEAN CELL VOLUME 98.6 fL (80-100); MEAN CORPUSCULAR HEMOGLOBIN 32.3 pg (25-34); MEAN CORPUSCULAR HGB CONC 32.8 g/dl (32-36); MEAN PLATELET VOLUME 9.2 fL (7.4-10.4); MONO % 8.6 %; NEUT % 62.9 %; PLATELET COUNT 264 K/uL (130-400); RED BLOOD COUNT 4.33 M/uL (4.7-6.1); WHITE BLOOD COUNT 9.53 K/uL (4.8-10.8)
[2017-03-31 06:52] LABS: CALCIUM 8.9 mg/dl (8.5-10.1); CREATININE 0.9 mg/dl (0.60-1.40); POTASSIUM 4.4 mmol/L (3.5-5.1)
[2017-03-31] MEDS: LACTOBACILLUS ACIDOPHILUS (FLORANEX) TAB PO SCH ×3 (07:30→16:45)
[2017-03-31] MEDS: PANTOprazole SOD 40 MG TAB PO SCH (07:49)
[2017-03-31] MEDS: THIAMINE HCL 100 MG TAB PO SCH (07:49)
[2017-03-31] MEDS: ASPIRIN 81 MG ECTAB PO SCH (07:50)
[2017-03-31] MEDS: TRAMADOL HCL 50 MG TAB PO PRN (07:50)
[2017-03-31] MEDS: ATORVASTATIN 40 MG TAB PO SCH (07:51)
[2017-03-31] MEDS: CARVEDILOL 6.25 MG TAB PO SCH (07:52)
[2017-03-31] MEDS: NICOTINE 21 MG/24 HR TDSY TD SCH (07:53)
[2017-03-31] MEDS: LISINOPRIL 5 MG TAB PO SCH (07:55)
[2017-03-31] MEDS ORDERED: CLOPIDOGREL BISULFATE 75 MG TAB PO SCH (09:00)
[2017-03-31] MEDS ORDERED: OXYCODONE HCL IR 5 MG TAB (IMMEDIATE RELEASE) PO PRN (10:30)
--- NOTE | 2017-03-31 11:54 | Cardiology Follow-Up ---
Subjective General Date of Service: Mar 31, 2017. Chief Complaint: follow-up chest discomfort, LAD territory ST segment elevation [place] Pt evaluation today including: conversation w/ patient, conversation w/ family , physical exam History of Present Illness The patient is a 56 year old male seen in follow-up. Patient feels well without chest discomfort or shortness of breath. Telemetry reveals sinus rhythm without any significant ventricular ectopy. Blood pressure is better controlled. Allergies Coded Allergies: No Known Allergies (Unverified , 05/28/16) Social History Smoking Status: Current Every Day Smoker Hx Tobacco Use In Past Year?: Yes Hx Alcohol Use - Type And Amou: Yes (4 beers a day) Hx Substance Use - Type And Am: No Problem List Medical Problems: (1) Abdominal pain Status: Acute (2) Acute gastroenteritis Status: Acute (3) Alcohol withdrawal Status: Acute (4) Colitis Status: Acute (5) Dehydration Status: Acute (6) Dehydration Status: Acute (7) Diarrhea Status: Acute (8) Diffuse abdominal pain Status: Acute (9) Failure of outpatient treatment Status: Acute (10) Mood disorder Status: Acute (11) STEMI (ST elevation myocardial infarction) Status: Acute (12) Transaminitis Status: Acute Physical Exam Vital Signs Last Vital Signs Documentation Date Time Temp Pulse Resp B/P (MAP) Pulse Ox O2 Delivery O2 Flow Rate FiO2 03/31/17 08:00 98 Room Air 03/31/17 06:51 36.6 81 20 118/78 (91) 03/29/17 12:51 3 Physical Exam Constitutional: Level of Distress: NAD Head: normocephalic Neck: supple Lungs: Auscultation: no wheezing, no rales/crackles, no rhonchi Cardiovascular: Heart Auscultation: RRR, no murmurs, no rubs Musculoskeletal: normal Extremities: no cyanosis, no edema, no varicosities, pertinent finding (right radial puncture site is clean dry and intact with no evidence of hematoma.) Neurologic: Gait & Station: pertinent finding (no focal deficits) Assessment and Plan Assessment and Plan Summary of transthoracic echocardiogram, performed 03/30/17 and reviewed independently: * -- Conclusions -- * There is mild concentric left ventricular hypertrophy. * There is a large sized apical, septal, anteroseptal, and inferior wall motion abnormality with hypokinesis to akinesis of the segments. * Left ventricular systolic function is moderate to severely reduced. * The LV Ejection Fraction = 30-35%. * Aortic valve sclerosis mild, without significant aortic valvular stenosis. * Diastolic dysfunction, Grade II (pseudonormalization pattern). EKG performed today 03/31/17 reviewed independently by the undersigned: Sinus rhythm at 82 bpm, septal infarction pattern noted with Q waves in leads V1 and V2, and T-wave changes in the precordial leads V1 to V6 consistent with evolution of his LAD territory [place], the ST segment elevation noted on his initial EKG performed prior to cardiac catheterization improved dramatically. Impression: 56-year-old male 1. Acute anterior, anterolateral ST segment elevation myocardial infarction for which patient underwent emergent cardiac catheterization and received drug- eluting stent to the proximal LAD. He had no significant residual disease elsewhere. It is noted that he had a super dominant right coronary artery system, with no significant circumflex coronary branches. Follow-up echocardiogram performed on post procedure day one has yielded moderate to severe left ventricular systolic dysfunction with apical akinesis, septal akinesis, and anterior wall hypokinesis. The Wall motion abnormality wraps around the left ventricular apex and continues to the apical and mid inferior segments with noted moderate LV systolic dysfunction, LVEF =30-35% 2. Cigarette smoking 3. Hypertension 4. Dyslipidemia 5. History of past alcohol dependence, patient states he is only drinking "a few" drinks per night Discussion/recommendation: Proceed with the following for medication therapy: Carvedilol, at 6.25 mg by mouth twice a day. Continue lisinopril 20 mg daily. Atorvastatin, 40 mg daily, was on 80 mg on hospital day 1, however his total cholesterol was 153 mg/dL and his LDL cholesterol was 91 mg/dL given concerns of potential underlying liver disease, I think that 40 mg as a sufficient dose for him. Continue aspirin 81 mg daily. Clopidogrel 75 mg by mouth daily I favor clopidogrel over Brilinta due to concerns about cost, adherence of a twice per day medication, and increased bleeding risk on Brilinta in a patient who has had past admission for gastrointestinal bleeding with past alcoholic gastritis and esophageal ulcer. Given his myocardial infarction left ventricular systolic dysfunction and left ventricular ejection fraction in the 30-35% range, this does place him at risk for early ventricular arrhythmi and cardiac post [place] and I therefore believe that the Zoll LifeVest wearable defibrillator is indicated until we reassess his ejection fraction 3 months post intervention. I'm optimistic that his LV systolic dysfunction is in part due to myocardial stunning and that this will recover to some degree, however findings on his echocardiogram and EKG to suggest that there will be some degree of residual scar tissue also. Fortunately, he is not having any ventricular arrhythmias at present which is a positive sign. I explained to him the rationale for this and he was willing to try it. I completed the order form. 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 He carries heavy items , including tools, and climbs ladders for this. I do not think he is going to be ready for this activity within the next week, and I think he will likely require short-term disability for at least the next 2-3 weeks. Told him that I could help prepare the forms of therapy provided. Patient is eager to get back to work, and she is ready to return to work within one week I think that is reasonable. I will refer him to cardiac rehabilitation. I have arranged follow-up with me at [facility] on 04/14/17 at 12:45 PM. I had a long discussion with him and his family regarding the importance of his medications. He will need to remain on aspirin that interruption for the rest of his life barring any bleeding disaster. He is to remain on clopidogrel without interruption for at least 1 year at which time this will be reassessed clinically. His previously planned elective knee replacement will likely need to be delayed one year until he finishes his course of dual antiplatelet therapy. Disposition: Stable for discharge from a cardiology standpoint pending arrival of the [facility] traveling sales representative to fit him with his vest. Garry Deras DO Laboratory Results Last 24 Hours Test 03/31/17 05:34 White Blood Count 9.53 K/uL Red Blood Count 4.33 M/uL Hemoglobin 14.0 g/dL Hematocrit 42.7 % Mean Corpuscular Volume 98.6 fL Mean Corpuscular Hemoglobin 32.3 pg Mean Corpuscular Hemoglobin Concent 32.8 g/dl Platelet Count 264 K/uL Mean Platelet Volume 9.2 fL Neutrophils (%) (Auto) 62.9 % Lymphocytes (%) (Auto) 23.1 % Monocytes (%) (Auto) 8.6 % Eosinophils (%) (Auto) 4.5 % Basophils (%) (Auto) 0.3 % Neutrophils # (Auto) 5.99 K/uL Lymphocytes # (Auto) 2.20 K/uL Monocytes # (Auto) 0.82 K/uL Eosinophils # (Auto) 0.43 K/uL Basophils # (Auto) 0.03 K/uL RDW Standard Deviation 49.4 fL RDW Coefficient of Variation 13.6 % Immature Granulocyte % (Auto) 0.6 % Immature Granulocyte # (Auto) 0.06 K/uL Sodium Level 137 mmol/L Potassium Level 4.4 mmol/L Chloride Level 103 mmol/L Carbon Dioxide Level 26 mmol/L Anion Gap 8.0 mmol/L Blood Urea Nitrogen 14 mg/dl Creatinine 0.90 mg/dl Est Creatinine Clear Calc Drug Dose 104.4 ml/min Estimated GFR () 111.8 Estimated GFR (Non- 96.5 BUN/Creatinine Ratio 16.0 Random Glucose 108 mg/dl Calcium Level 8.9 mg/dl
--- NOTE | 2017-03-31 13:45 | Progress Note ---
Medicine Progress Note Date & Time of Visit: Mar 31, 2017 at 13:26. Subjective Pt was seen and examined Lying in bed comfortable with no distress Pt said that he feels fine he did not have any chest pain last night he said that he continue to have right knee pain He denies any chest pain, palpitation, dizziness and SOB Objective Last 8 Hrs Date Time Temp Pulse Resp B/P (MAP) Pulse Ox O2 Delivery O2 Flow Rate FiO2 03/31/17 12:00 98 Room Air 03/31/17 11:55 36.9 93 21 125/75 (92) 98 Room Air 03/31/17 08:00 98 Room Air 03/31/17 06:51 36.6 81 20 118/78 (91) 98 Room Air Physical Exam: General- No acute distress Head- atraumatic Eyes- PERRL, EOMI ENT- oropharynx clear Neck- supple, no JVD Lungs- clear to auscultation Heart- regular rhythm Abdomen- normal bowel sounds, soft Extremities- no calf tenderness, right knee pain Neuro- alert, oriented x 3; PERRL, EOMI Skin- warm & dry Laboratory Results: Last 24 Hours Test 03/31/17 05:34 White Blood Count 9.53 K/uL Red Blood Count 4.33 M/uL Hemoglobin 14.0 g/dL Hematocrit 42.7 % Mean Corpuscular Volume 98.6 fL Mean Corpuscular Hemoglobin 32.3 pg Mean Corpuscular Hemoglobin Concent 32.8 g/dl Platelet Count 264 K/uL Mean Platelet Volume 9.2 fL Neutrophils (%) (Auto) 62.9 % Lymphocytes (%) (Auto) 23.1 % Monocytes (%) (Auto) 8.6 % Eosinophils (%) (Auto) 4.5 % Basophils (%) (Auto) 0.3 % Neutrophils # (Auto) 5.99 K/uL Lymphocytes # (Auto) 2.20 K/uL Monocytes # (Auto) 0.82 K/uL Eosinophils # (Auto) 0.43 K/uL Basophils # (Auto) 0.03 K/uL RDW Standard Deviation 49.4 fL RDW Coefficient of Variation 13.6 % Immature Granulocyte % (Auto) 0.6 % Immature Granulocyte # (Auto) 0.06 K/uL Sodium Level 137 mmol/L Potassium Level 4.4 mmol/L Chloride Level 103 mmol/L Carbon Dioxide Level 26 mmol/L Anion Gap 8.0 mmol/L Blood Urea Nitrogen 14 mg/dl Creatinine 0.90 mg/dl Est Creatinine Clear Calc Drug Dose 104.4 ml/min Estimated GFR () 111.8 Estimated GFR (Non- 96.5 BUN/Creatinine Ratio 16.0 Random Glucose 108 mg/dl Calcium Level 8.9 mg/dl Assessment & Plan STEMI S/P PCI JEFFREY Risk factors: HTN, HLP, Tobacco and alcohol use denies any chest pain currently was transferred from ICU to telemetry Continue ASA, Brillinta, Lipitor, BB, Lisinopril cardiology changed the Brillinta to Plavix Received plavix 300mg today Cardiology on board Echo showed: * There is mild concentric left ventricular hypertrophy. * There is a large sized apical, septal, anteroseptal, and inferior wall motion abnormality with hypokinesis to akinesis of the segments. * Left ventricular systolic function is moderate to severely reduced. * The LV Ejection Fraction = 30-35%. * Aortic valve sclerosis mild, without significant aortic valvular stenosis. * Diastolic dysfunction, Grade II (pseudonormalization pattern). 03/31 Asymptomatic Eager to go home today Life vest order by cardiology due to risk for early ventricular arrhythmi and cardiac post [place] with the EF 30-35% on Echo. He will wear the Zoll LifeVest defibrillator until his ejection fraction reassess in 3 months post intervention. Pt will like to go back to work, ideally we would like him to be off for 2 to 3 weeks, he wants to go back to work sooner Carvedilol, at 6.25 mg by mouth twice a day. Continue lisinopril 20 mg daily. Atorvastatin decrease to 40 mg daily Continue aspirin 81 mg daily. Clopidogrel 75 mg by mouth daily Pt was advised to continue asa for life He will need to continue plavix for 1 year without interrupting Any elective surgery can be schedule after 1 year Cardio will refer him for cardia rehab Follow up with cardiology Dr. Deras at the [facility] on 04/14/17 @ 12 :45PM Alcohol use disorder No signs of alcohol withdraw Continue Thiamine, folic acid Ativan PRN Tobacco use disorder Nicotine patch Counseling about smoking cessation HTN: Stable Continue current med Dyslipidemia LDL at goal Atorvastatin was decreased to 40 mg daily due to her hx of liver disease H/O Hepatitis C Stable DVT Px SCDs Code Status Full Code Consultants: Cardiology Current Inpatient Medications: Current Inpatient Medications Medications (Trade) Dose Ordered Sig/Johnny Route Start Time Stop Time Status Last Admin Dose Admin Nitroglycerin (Nitrostat Tab) 0.4 mg UD PRN SL 03/29/17 13:15 04/28/17 13:14 Atropine Sulfate (Atropine Sulfate 0.1MG/Ml Inj) 0.5 mg ONE PRN IV 03/29/17 13:15 04/28/17 13:14 Ondansetron HCl (Zofran Inj) 4 mg Q6H PRN IV 03/29/17 13:15 04/28/17 13:14 Future Hold Aspirin (Ecotrin Tab) 81 mg QAM PO 03/30/17 09:00 04/29/17 08:59 03/31/17 07:50 81 MG Lisinopril (Zestril Tab) 20 mg QAM PO 03/30/17 09:00 04/29/17 08:59 03/31/17 07:55 20 MG Acetaminophen (Tylenol Tab) 650 mg Q4H PRN PO 03/29/17 13:15 04/28/17 13:14 Morphine Sulfate (MoRPHine SULFATE INJ) 2 mg Q5M PRN IV 03/29/17 13:15 04/12/17 13:14 03/29/17 23:53 2 MG Lorazepam 0.5 mg/ Syringe 0.25 ml @ 1 mls/min Q6H PRN IV 03/29/17 13:15 04/28/17 13:14 Lorazepam (Ativan Tab) 1 mg Q6H PRN PO 03/29/17 13:15 04/28/17 13:14 03/30/17 03:35 1 MG Al Hydrox/Mg Hydrox/Simethicone (Maalox Max Susp) 15 ml Q4H PRN PO 03/29/17 13:15 04/28/17 13:14 Magnesium Hydroxide (Milk Of Magnesia Susp) 30 ml Q12H PRN PO 03/29/17 13:15 04/28/17 13:14 Folic Acid (Folvite Tab) 1 mg QAM PO 03/30/17 09:00 04/29/17 08:59 03/31/17 07:53 1 MG Pantoprazole Sodium (Protonix Tab) 40 mg BID PO 03/29/17 21:00 04/28/17 20:59 03/31/17 07:49 40 MG Thiamine HCl (Vitamin B-1 Tab) 100 mg QAM PO 03/30/17 09:00 04/29/17 08:59 03/31/17 07:49 100 MG Tramadol HCl (Ultram Tab) 50 mg Q6H PRN PO 03/29/17 13:15 04/28/17 13:14 03/31/17 07:50 50 MG Lactobacillus Acidophilus (Floranex Tab) 1 tab TIDM PO 03/29/17 16:30 04/28/17 17:59 03/30/17 08:24 1 TAB Nicotine (Nicoderm Cq 21MG Patch) 1 patch QAM TD 03/29/17 15:15 04/28/17 15:14 03/31/17 07:53 1 PATCH Miscellaneous (Remove Nicoderm Patch) 1 ea HS N/A 03/29/17 21:00 04/28/17 20:59 03/30/17 23:00 1 EA Lorazepam (Ativan Tab) 1 mg ONE PRN PO 03/29/17 15:15 Carvedilol (Coreg Tab) 6.25 mg BID PO 03/30/17 21:00 04/29/17 20:59 03/31/17 07:52 6.25 MG Clopidogrel Bisulfate (plAVix TAB) 75 mg QAM PO 03/31/17 09:00 04/30/17 08:59 03/31/17 07:52 75 MG Oxycodone HCl (Roxicodone Immediate Rel Tab) 5 mg Q12 PRN PO 03/31/17 10:30 04/14/17 10:29 03/31/17 10:52 5 MG Atorvastatin Calcium (Lipitor Tab) 40 mg QAM PO 04/01/17 09:00 05/01/17 08:59
--- NOTE | 2017-03-31 17:19 | Discharge Instructions ---
Discharge Instructions Date of Service Mar 31, 2017. Admission Reason for Admission: [place] Anterior Wall Discharge Discharge Diagnosis / Problem: STEMI S/P PCI JEFFREY, Tobacco abuse, HTN Discharge Goals Goal(s): Decrease discomfort, Improve function, Improve disease control Activity Recommendations Activity Limitations: resume your previous activity (increase activity gradually as tolerated) . Instructions / Follow-Up Instructions / Follow-Up Follow up with your primary care physician Dr. Santana on 04/05 @ 2:55 pm Follow up with cardiology Dr. Deras at the [facility] on 04/14/17 @ 12 :45PM Counseling on smoking cessation You will need to continue Plavix for 1 year without interruption Any elective surgery can be schedule after 1 year Cardio will refer you for cardia rehab New medications Carvedilol 6.25 mg by mouth twice a day. lisinopril 20 mg daily. Atorvastatin decrease to 40 mg daily Continue aspirin 81 mg daily. Clopidogrel 75 mg by mouth daily Continue asa for life Current Hospital Diet Patient's current hospital diet: AHA Diet (Heart Healthy), Low Sodium Diet (2gm Na) Discharge Diet Recommended Diet: AHA Diet (Heart Healthy), Low Sodium Diet (2gm Na) Pending Studies Studies pending at discharge: no Laboratory Results Hemoglobin A1c Test 03/29/17 13:53 Range/Units Estimated Average Glucose 131 mg/dl Hemoglobin A1c 6.2 H 4.5-5.6 % Lipid Panel Test 03/29/17 13:53 Range/Units Triglycerides Level 50 0-150 mg/dl Cholesterol Level 153 0-200 mg/dl HDL Cholesterol 52 mg/dl LDL Cholesterol Direct 91 mg/dl Cholesterol/HDL Ratio 2.9 LDL Cholesterol, Calculated mg/dl Medical Emergencies . Who to Call and When: Medical Emergencies: If at any time you feel your situation is an emergency, please call 911 immediately. . Non-Emergent Contact Non-Emergency issues call your: Primary Care Provider Call Non-Emergent contact if: you have a fever, your pain is not controlled, you have any medication questions . . "Provider Documentation" section prepared by Gordo Flores. . VTE Core Measure Inpt VTE Proph given/why not?: SCD's
[2017-03-31] MEDS ORDERED: CRG625 PO (17:31)
[2017-03-31] MEDS ORDERED: PLV75 PO (17:31)
[2017-03-31] MEDS ORDERED: ASPEC81 PO (17:31)
[2017-03-31] MEDS ORDERED: LPT40 PO (17:31)
[2017-03-31] MEDS ORDERED: NTRSLP4 SL (17:31)
[2017-03-31] MEDS ORDERED: LSN20 PO (17:31)
[2017-04-01] MEDS ORDERED: ATORVASTATIN 40 MG TAB PO SCH (09:00)
--- NOTE | 2017-04-01 17:00 | Discharge Summary ---
Discharge Summary Date of Service Apr 01, 2017. Discharge Summary Admission Date: Mar 29, 2017 at 13:22 Discharge Date: Mar 31, 2017 Discharge Disposition: Home Principal Diagnosis: STEMI S/P PCI JEFFREY Secondary Diagnoses/Problems: Tobacco use HTN H/o Hep C Dyslipidemia Alcohol user Procedures: Coronary Angiography, Left Heart Cath, LV Angiography, PTCA, Drug Eluting Stent Consultations: Cardiology Medication Reconciliation New Medications: Aspirin (Aspirin EC Low Dose) 81 Mg Ectab 81 MG PO QAM for 30 Days Atorvastatin (Atorvastatin Calcium) 40 Mg Tab 40 MG PO QAM for 30 Days, #30 TAB Carvedilol (Carvedilol) 6.25 Mg Tab 6.25 MG PO BID for 30 Days, #60 TAB Clopidogrel Bisulfate (Clopidogrel) 75 Mg Tab 75 MG PO QAM for 30 Days, #30 TAB Lisinopril (Lisinopril) 20 Mg Tab 1 TAB PO DAILY for 30 Days Nitroglycerin (Nitrostat) 0.4 Mg/1 Tab Subl 0.4 MG SL UD PRN for Chest Pain for 7 Days Continued Medications: Folic Acid (Folic Acid) 1 Mg Tab 1 MG PO QAM, #100 TAB Lactobacillus (Acidophilus) 1 Cap Cap 1 CAP PO TIDM, #30 CAP 0 Refills Pantoprazole (Pantoprazole Sodium) 40 Mg Tab 40 MG PO BID, #60 TAB 1 Refill Thiamine HCl (Vitamin B-1) 100 Mg Tab 100 MG PO QAM, #100 TAB Tramadol (Ultram) 50 Mg Tab 50 MG PO Q6H PRN for Pain, TAB Discontinued Medications: Lisinopril/Hctz (Zestoretic 20MG/12.5MG) Tab 1 TAB PO DAILY, TAB Metronidazole (Metronidazole) 500 Mg Tab 500 MG PO TID, #30 TAB Admission Information HPI (per Admitting provider): Patient is a 56 yr male with PMH of HTN, HLP, Hepatitis C, Chronic alcohol and Tobacco use and other problems presents with history of chest pain and was found to have STEMI and was emergently 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 Patient reports left sided chest pain started on Tuesday which resolved after 2 hours and he thought it to be secondary to indigestion. This morning patient had sudden onset of retrosternal chest pain, pressure like, radiates to left arm, 9/ 10 intensity while he was lifting heavy object at work and he drove to ED for further evaluation. Reports associated SOB, nausea, dizziness and palpitations. Currently states has minimal chest pain. Denies any history of vomiting, diaphoresis, fever, chills, Abdominal pain, diarrhea, urinary symptoms, cough, wheezing, headache. Reports chronic knee pain and left hip pain. 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 * There is a large sized apical, septal, anteroseptal, and inferior wall motion abnormality with hypokinesis to akinesis of the segments. * Left ventricular systolic function is moderate to severely reduced. * The LV Ejection Fraction = 30-35%. * Aortic valve sclerosis mild, without significant aortic valvular stenosis. * Diastolic dysfunction, Grade II (pseudonormalization pattern). 03/31 Asymptomatic Eager to go home today Life vest order by cardiology due to risk for early ventricular arrhythmi and cardiac post [place] with the EF 30-35% on Echo. He will wear the [employer]oll LifeVest defibrillator until his ejection fraction reassess in 3 months post intervention. Pt will like to go back to work, ideally we would like him to be off for 2 to 3 weeks, he wants to go back to work sooner Carvedilol, at 6.25 mg by mouth twice a day. Continue lisinopril 20 mg daily. Atorvastatin decrease to 40 mg daily Continue aspirin 81 mg daily. Clopidogrel 75 mg by mouth daily Pt was advised to continue asa for life He will need to continue plavix for 1 year without interrupting Any elective surgery can be schedule after 1 year Cardio will refer him for cardia rehab Follow up with cardiology Dr. Deras at the [facility] on 04/14/17 @ 12 :45PM Alcohol use disorder No signs of alcohol withdraw Continue Thiamine, folic acid Ativan PRN Tobacco use disorder Nicotine patch Counseling about smoking cessation HTN: Stable Continue current med Dyslipidemia LDL at goal Atorvastatin was decreased to 40 mg daily due to her hx of liver disease H/O Hepatitis C Stable DVT Px SCDs Code Status Full Code Total time spent on discharge = 35 minutes This includes examination of the patient, discharge planning, medication reconciliation, and communication with other providers. Discharge Instructions Discharge Instructions Date of Service Mar 31, 2017. Admission Reason for Admission: [place] Anterior Wall Discharge Discharge Diagnosis / Problem: STEMI S/P PCI JEFFREY, Tobacco abuse, HTN Discharge Goals Goal(s): Decrease discomfort, Improve function, Improve disease control Activity Recommendations Activity Limitations: resume your previous activity (increase activity gradually as tolerated) . Instructions / Follow-Up Instructions / Follow-Up Follow up with your primary care physician Dr. Santana on 04/05 @ 2:55 pm Follow up with cardiology Dr. Deras at the [facility] on 04/14/17 @ 12 :45PM Counseling on smoking cessation You will need to continue Plavix for 1 year without interruption Any elective surgery can be schedule after 1 year Cardio will refer you for cardia rehab New medications Carvedilol 6.25 mg by mouth twice a day. lisinopril 20 mg daily. Atorvastatin decrease to 40 mg daily Continue aspirin 81 mg daily. Clopidogrel 75 mg by mouth daily Continue asa for life Current Hospital Diet Patient's current hospital diet: AHA Diet (Heart Healthy), Low Sodium Diet (2gm Na) Discharge Diet Recommended Diet: AHA Diet (Heart Healthy), Low Sodium Diet (2gm Na) Pending Studies Studies pending at discharge: no Laboratory Results Hemoglobin A1c Test 03/29/17 13:53 Range/Units Estimated Average Glucose 131 mg/dl Hemoglobin A1c 6.2 H 4.5-5.6 % Lipid Panel Test 03/29/17 13:53 Range/Units Triglycerides Level 50 0-150 mg/dl Cholesterol Level 153 0-200 mg/dl HDL Cholesterol 52 mg/dl LDL Cholesterol Direct 91 mg/dl Cholesterol/HDL Ratio 2.9 LDL Cholesterol, Calculated mg/dl Medical Emergencies . Who to Call and When: Medical Emergencies: If at any time you feel your situation is an emergency, please call 911 immediately. . Non-Emergent Contact Non-Emergency issues call your: Primary Care Provider Call Non-Emergent contact if: you have a fever, your pain is not controlled, you have any medication questions . . "Provider Documentation" section prepared by Gordo Flores. . VTE Core Measure Inpt VTE Proph given/why not?: SCD's Signed: Signed: The status of this report is Draft * If report status is Draft, the document has not been finalized by the responsible provider. Additional Copies To Tesfaye Santana M.D.
[2017-04-29] MEDS ORDERED: VNCS125 PO (19:55)
[2017-04-29] MEDS ORDERED: LXP10 PO (19:55)
== END 2017-03-31 18:47 | disposition home or self-care (01) | DRG 247 ==
LOC: C.EDB 11:20 → C.MSICU 13:22 → C.2E 03-30 14:55
PROVIDERS: ADMIT Internal Medicine Cardiovascular Disease; ATTEND Internal Medicine
PROC: 027034Z Dilation of Coronary Artery, One Artery with Drug-eluting Intraluminal Device, Percutaneous Approach (ICD-10-PCS; principal; 2017-03-29 12:11)
PROC: B2111ZZ Fluoroscopy of Multiple Coronary Arteries using Low Osmolar Contrast (ICD-10-PCS; principal; 2017-03-29 12:11)
PROC: B2151ZZ Fluoroscopy of Left Heart using Low Osmolar Contrast (ICD-10-PCS; principal; 2017-03-29 12:11)
PROC: 4A023N7 Measurement of Cardiac Sampling and Pressure, Left Heart, Percutaneous Approach (ICD-10-PCS; principal; 2017-03-29 12:11)
DX: I21.02 ST elevation (STEMI) myocardial infarction involving left anterior descending coronary artery (principal); I50.1 Left ventricular failure, unspecified; I25.10 Atherosclerotic heart disease of native coronary artery without angina pectoris; R00.0 Tachycardia, unspecified; I11.0 Hypertensive heart disease with heart failure; E78.5 Hyperlipidemia, unspecified; B19.20 Unspecified viral hepatitis C without hepatic coma; F10.20 Alcohol dependence, uncomplicated; F17.210 Nicotine dependence, cigarettes, uncomplicated; Z87.11 Personal history of peptic ulcer disease; Z79.891 Long term (current) use of opiate analgesic; Z79.899 Other long term (current) drug therapy

== ENCOUNTER 2017-04-27 13:32 | Inpatient (IN) | payer OTHER ==
[~2017-04-27] VITALS: Ht 170.2 cm; Wt 100.2 kg
[~2017-04-27 13:32] MED LIST changes: +ASPEC81 PO; +CRG625 PO; -LISI-787 PO; +LPT40 PO; +LSN20 PO; -MTR500 PO; +NTRSLP4 SL; +PLV75 PO
[2017-04-27] MEDS ORDERED: ASPIRIN 324 MG CHEW PO STA (13:59)
[2017-04-27] MEDS ORDERED: LORAZEPAM 2 MG/ML 1 ML VIAL IV STA (13:59)
[2017-04-27] MEDS ORDERED: METOPROLOL TARTRATE 50 MG TAB PO STA (13:59)
[2017-04-27] MEDS ORDERED: SODIUM CHLORIDE 0.9% 500ML 500 ML IV STA (13:59)
[2017-04-27] MEDS ORDERED: NITROGLYCERIN OINT 2% 1GM PACKET EXT ONE (14:00)
[2017-04-27 14:05] LABS: HEMATOCRIT 45.5 % (42-52); MEAN CELL VOLUME 94.8 fL (80-100); MEAN CORPUSCULAR HEMOGLOBIN 33.8 pg (25-34); MEAN CORPUSCULAR HGB CONC 35.6 g/dl (32-36); MEAN PLATELET VOLUME 9.3 fL (7.4-10.4); PLATELET COUNT 196 K/uL (130-400); WHITE BLOOD COUNT 11.11 K/uL (4.8-10.8)
--- NOTE | 2017-04-27 14:06 | DIAGNOSTIC IMAGING REPORT ---
CHEST ONE VIEW PORTABLE CLINICAL HISTORY: chest pain dyspnea COMPARISON STUDY: 03/29/2017 FINDINGS: Lungs are clear. Mild tortuosity thoracic aorta. Diaphragms smooth. IMPRESSION: Negative chest. The above report was generated using voice recognition software. It may contain grammatical, syntax or spelling errors. Electronically signed by: Tesfaye Rabago M.D. 04/27/2017 2:04 PM Dictated Date/Time: 04/27/2017 2:04 PM
[2017-04-27 14:16] LABS: PROTHROMBIN TIME (PATIENT) 10.7 SECONDS (9.0-12.0)
[2017-04-27 14:21] LABS: BUN/CREATININE RATIO 23.1 (10-20); CALCIUM 9.1 mg/dl (8.5-10.1); CREATININE 1.1 mg/dl (0.60-1.40); POTASSIUM 3.8 mmol/L (3.5-5.1)
--- NOTE | 2017-04-27 14:25 | EMERGENCY ROOM VISIT NOTE ---
History First contact with patient: 13:49 Chief Complaint: CHEST PAIN Stated Complaint: CHEST PAIN Nursing Triage Summary: Pt reports left chest "pressure" since last evening. Pt states it is getting worse +sweating denies SOB, nausea Pt reports AR last month and had 1 stent placed Pt alcoholic and last drink was yesterday around noon History of Present Illness The patient is a 56 year old male who presents to the Emergency Room with complaints of chest pressure that started last evening. The patient has a history of an AR. He was treated in the middle of March. He was taken for emergent catheterization. A stent was placed in the LAD. The patient says that the chest pressure is worse with deep inspiration. He denies any shortness of breath. He has had some dizziness. Denies heart palpitations. The patient has a history of alcohol dependence. He typically drinks "a few beers a night." For the last 5 days, his alcohol intake has dramatically increased. He has finished 3 L of vodka. His last drink was yesterday afternoon. He is feeling shaky and sweaty. He has also been nauseated. He reports taking his medications as prescribed. Review of Systems 10 system review performed and negative unless noted in HPI or below Past Medical/Surgical History Medical Problems: (1) Alcohol dependence (2) Alcohol intoxication (3) C. difficile diarrhea (4) CAD (coronary artery disease) (5) Hepatitis C (6) History of GI bleed (7) HTN (hypertension) (8) Ischemic cardiomyopathy (9) Obesity (10) Renal artery stenosis Surgical Problems: (1) H/O esophagogastroduodenoscopy History of AR status post stent to the LAD in March 2017 Family History Diabetes mellitus BROTHER Hypertension Social History Smoking Status: Current Every Day Smoker Alcohol Use: heavy Drug Use: none Marital Status: Housing Status: lives with significant other Occupation Status: employed Current/Historical Medications Scheduled Aspirin (Aspirin EC Low Dose), 81 MG PO QAM Atorvastatin (Atorvastatin Calcium), 40 MG PO QAM Carvedilol (Coreg), 1 TAB PO BID Clopidogrel Bisulfate (Clopidogrel), 75 MG PO QAM Folic Acid (Folic Acid), 1 MG PO QAM Furosemide (Lasix), 20 MG PO DAILY Isosorbide Mononitrate Ext Rel (Imdur Ext Rel), 30 MG PO DAILY Lactobacillus (Acidophilus), 1 CAP PO TIDM Lisinopril (Lisinopril), 1 TAB PO DAILY Pantoprazole (Pantoprazole Sodium), 40 MG PO BID Thiamine HCl (Vitamin B-1), 100 MG PO QAM Scheduled PRN Nitroglycerin (Nitrostat), 0.4 MG SL UD PRN for Chest Pain Tramadol (Ultram), 50 MG PO Q6H PRN for Pain Physical Exam Vital Signs Date Time Temp Pulse Resp B/P (MAP) Pulse Ox O2 Delivery O2 Flow Rate FiO2 04/27/17 14:55 96 16 127/96 96 Room Air 04/27/17 14:24 105 16 138/104 97 Room Air 04/27/17 14:23 97 Room Air 04/27/17 14:23 97 Room Air 04/27/17 14:16 104 04/27/17 13:38 37.2 106 22 164/103 96 Room Air Physical Exam GENERAL: 56-year-old male, anxious in appearance, mild distress,, in no acute distress, SKIN: The skin was slightly warm and moist HEAD: Normocephalic atraumatic. MOUTH: Mucous membranes slightly dry NECK: No JVD. HEART: Tachycardic, regular rate and rhythm without murmurs gallops or rubs. LUNGS: Clear to auscultation bilaterally without wheezes, rales or rhonchi. No accessory muscle use. ABDOMEN: Positive bowel sounds x 4.Soft, nontender, without organomegaly. No guarding or rebound tenderness. MUSCULOSKELETAL: No muscle atrophy, erythema, or edema noted. Strength 5/5 throughout. NEURO: Patient was alert and oriented to person place and time. Fine tremor noted. Cerebellar function intact. Negative Romberg. Answering questions appropriately. Normal sensation to touch. No focal neurological deficits. Medical Decision & Procedures ER Provider Diagnostic Interpretation: CHEST ONE VIEW PORTABLE CLINICAL HISTORY: chest pain dyspnea COMPARISON STUDY: 03/29/2017 FINDINGS: Lungs are clear. Mild tortuosity thoracic aorta. Diaphragms smooth. IMPRESSION: Negative chest. The above report was generated using voice recognition software. It may contain grammatical, syntax or spelling errors. Electronically signed by: Tesfaye Rabago M.D. 04/27/2017 2:04 PM Dictated Date/Time: 04/27/2017 2:04 PM The status of this report is Signed. Laboratory Results 04/27/17 13:50 04/27/17 13:50 Test 04/27/17 13:50 Red Blood Count 4.80 M/uL (4.7-6.1) Mean Corpuscular Volume 94.8 fL (80-100) Mean Corpuscular Hemoglobin 33.8 pg (25-34) Mean Corpuscular Hemoglobin Concent 35.6 g/dl (32-36) RDW Standard Deviation 43.8 fL (36.4-46.3) RDW Coefficient of Variation 12.6 % (11.5-14.5) Mean Platelet Volume 9.3 fL (7.4-10.4) Prothrombin Time 10.7 SECONDS (9.0-12.0) Prothromb Time International Ratio 1.0 (0.9-1.1) Activated Partial Thromboplast Time 26.1 SECONDS (21.0-31.0) Partial Thromboplastin Ratio 1.0 Anion Gap 7.0 mmol/L (3-11) Est Creatinine Clear Calc Drug Dose 85.8 ml/min Estimated GFR () 87.7 Estimated GFR (Non- 75.7 BUN/Creatinine Ratio 23.1 (10-20) Calcium Level 9.1 mg/dl (8.5-10.1) Total Bilirubin 1.5 mg/dl (0.2-1) Aspartate Amino Transf (AST/SGOT) 30 U/L (15-37) Alanine Aminotransferase (ALT/SGPT) 37 U/L (12-78) Alkaline Phosphatase 91 U/L (45-117) Total Protein 7.8 gm/dl (6.4-8.2) Albumin 3.8 gm/dl (3.4-5.0) Globulin 4.0 gm/dl (2.5-4.0) Albumin/Globulin Ratio 1.0 (0.9-2) Medications Administered Medications (Trade) Dose Ordered Sig/Johnny Route Start Time Stop Time Status Last Admin Dose Admin Nitroglycerin (Nitroglycerin 2% Oint) 1 inch NOW ONCE EXT 04/27/17 14:00 04/27/17 14:02 DC 04/27/17 14:29 1 INCH Aspirin (Aspirin Chew) 324 mg NOW STAT PO 04/27/17 13:59 04/27/17 14:02 DC 04/27/17 14:25 324 MG Metoprolol Tartrate (Lopressor Tab) 25 mg ONE STAT PO 04/27/17 13:59 04/27/17 14:02 DC 04/27/17 14:26 25 MG Lorazepam (Ativan Inj) 1 mg NOW STAT IV 04/27/17 13:59 04/27/17 14:02 DC 04/27/17 14:26 1 MG Sodium Chloride 500 ml @ 0 mls/hr Q0M STAT IV 04/27/17 13:59 04/27/17 14:02 DC 04/27/17 14:31 500 MLS/HR ECG Indication: chest pain Rate (beats per minute): 106 bpm Rhythm: sinus tachycardia Findings: other (Q waves in the anterior, septal and inferior leads) ED Course Patient was seen and examined Vital signs including blood pressure were reviewed medications list was verified with patient Labs were obtained, and a saline lock was established Nitropaste was applied. The patient was given aspirin 324 mg chew. He was given 1 dose of metoprolol 25 mg po. He was given Ativan 1 mg IV. He was hydrated with 500 mL normal saline at 200 mL per hour. The patient was reassessed. Vitals were improved. Imaging was performed and reviewed The patient was reassessed. His pain was improved. We discussed the results of his workup. He voiced understanding. The case was discussed with Dr. Gee from cardiology. He recommended admission for alcohol withdrawal. [facility] Medical Decision Differential diagnosis: Acute myocardial infarction, cardiac arrhythmia, anemia , thyroid abnormality, pneumothorax, pneumonia, bronchitis, pericarditis, electrolyte imbalance, alcohol withdrawal, DTs This patient is a 56-year-old male that presented to the emergency department with chest pressure. No history of coronary disease with stent in the LAD 1 month ago. Also history of alcohol dependence with heavy alcohol intake and abrupt stop yesterday. Appears to be in withdrawal. No signs of delirium at this point. The patient has a mild elevation in his cardiac markers. Cardiology did not recommend any further treatment such as a heparin drip. The [facility] hospitalists are in agreement for admission for a diagnosis of alcohol withdrawal, chest pain and abnormal cardiac markers. Medication Reconcilliation Current Medication List: was personally reviewed by me Blood Pressure Screening Patient's blood pressure: Elevated blood pressure Impression Primary Impression: Alcohol withdrawal Additional Impression: Abnormal cardiac enzyme level Departure Information Referrals Dm Rachel M.D. (PCP) Patient Instructions My [facility] Problem Qualifiers
[2017-04-27 14:26] LABS: CKMB/CK RATIO 2.2 (0-3.0)
[2017-04-27] MEDS ORDERED: ISOS30TA3 PO (14:33)
[2017-04-27] MEDS ORDERED: FURO-85 PO (14:33)
[2017-04-27] MEDS ORDERED: LORAZEPAM 2 MG/ML 1 ML VIAL IV PRN (16:45)
[2017-04-27] MEDS ORDERED: ONDANSETRON INJ 2 MG/ML 2 ML VIAL IV PRN (16:45)
[2017-04-27] MEDS ORDERED: CARV12.52 PO (16:49)
[2017-04-27 16:51] VITALS: Ht 170.2 cm; Wt 100.2 kg
[2017-04-27] MEDS ORDERED: MULTIVITAMIN TAB PO STA (17:06)
[2017-04-27] MEDS ORDERED: THIAMINE HCL 100 MG TAB PO STA (17:06)
[2017-04-27] MEDS ORDERED: GABAPENTIN 600 MG TAB PO ONE (17:30)
[2017-04-27 17:39] VITALS: BP 147/106; PULSE 101; TEMP 36.6; O2SAT 95
[2017-04-27] MEDS: NITROGLYCERIN 0.4 MG SL PER TAB CHARGE SL PRN ×2 (17:43→19:55)
--- NOTE | 2017-04-27 19:14 | History and Physical ---
History & Physical Date & Time of Service: Apr 27, 2017 ~ 16:15 Chief Complaint: Alcohol Withdrawal Primary Care Physician: Dm Rachel M.D. History of Present Illness 56 year old male who presents to the ER for evaluation of alcohol withdrawal. Patient was recently admitted to [facility] 03/29 - 03/31 for anterior STEMI and underwent JEFFREY to LAD. EF was found to be 35%. Patient was advised to wear a life vest however was only able to tolerate it for about 5 days reporting it caused him severe anxiety. Since being discharged from the hospital, patient has followed up with his PCP and cardiology. BP was found to be significantly elevated and he had reported persistent chest pain. Carvedilol was increased and he was started on isosorbide and escitalopram. Patient also has a long standing history of alcohol abuse. He reports he typically drinks "a few" beers a night however since being home from the hospital and being unable to work, it has caused him to be depressed and anxious and has caused him to drink. He has drank 3L of vodka in the past 6 days, last drink being yesterday afternoon. He denies suicidal ideations. Patient reports a constant left sided chest pressure. He feels like it has gotten worse over the past few days when his alcohol intake has increased. He has been diaphoretic which he attributes to withdrawal. He denies shortness of breath. He reports appetite has been poor and he has been having some loose stools. No abdominal pain, nausea, BRBPR, or dark tarry stools. He denies lightheadedness, dizziness, or syncopal events. No fever or chills. He denies urinary symptoms. In the ER, patient is found to have a mildly elevated trop 0.059, EKG does not not any acute ST changes. He was treated with Ativan 1mg IV x 2, full dose ASA, nitro paste, and metoprolol 25mg PO. Past Medical/Surgical History Medical Problems: (1) Alcohol dependence Status: Chronic (2) C. difficile diarrhea Status: Chronic (3) CAD (coronary artery disease) Permanent Comment: 03/29/2017 - anterior STEMI, s/p JEFFREY to LAD Status: Chronic (4) Hepatitis C Status: Chronic (5) History of GI bleed Permanent Comment: secondary to esophageal ulceration on EGD 11/29/2013 Status: Chronic (6) HTN (hypertension) Status: Chronic (7) Ischemic cardiomyopathy Permanent Comment: EF 30-35% Status: Chronic (8) Obesity Status: Chronic (9) Renal artery stenosis Permanent Comment: questionable Status: Chronic Surgical Problems: (1) H/O esophagogastroduodenoscopy Permanent Comment: 11/29/2013- Large lower esophageal ulceration. No bleeding. Portal hypertensive gastropathy. Erythematous duodenopathy. Normal 2nd part of the duodenum. Status: Chronic Family History Diabetes mellitus BROTHER Social History Smoking Status: Current Every Day Smoker Alcohol Use: heavy Marital Status: Occupational Status: employed Immunizations History of Influenza Vaccine: Yes Influenza Vaccine Date: Aug 03, 2013 History of Tetanus Vaccine?: Yes Tetanus Immunization Date: Sep 20, 2003 History of Hepatitis B Vaccine: Yes Hepatitis Immunization Date: January 22, 2011 Multi-Drug Resistant Organisms History of MDRO: No Allergies Coded Allergies: No Known Allergies (Unverified , 05/28/16) Home Medications Scheduled Aspirin (Aspirin EC Low Dose), 81 MG PO QAM Atorvastatin (Atorvastatin Calcium), 40 MG PO QAM Carvedilol (Coreg), 1 TAB PO BID Clopidogrel Bisulfate (Clopidogrel), 75 MG PO QAM Escitalopram Oxalate (Escitalopram Oxalate), 10 MG PO QAM Folic Acid (Folic Acid), 1 MG PO QAM Furosemide (Lasix), 20 MG PO DAILY Isosorbide Mononitrate Ext Rel (Imdur Ext Rel), 30 MG PO DAILY Lactobacillus (Acidophilus), 1 CAP PO TIDM Lisinopril (Lisinopril), 1 TAB PO DAILY Pantoprazole (Pantoprazole Sodium), 40 MG PO BID Thiamine HCl (Vitamin B-1), 100 MG PO QAM Vancomycin HCl (Vancomycin HCl), 125 MG PO QID Scheduled PRN Nitroglycerin (Nitrostat), 0.4 MG SL UD PRN for Chest Pain Review of Systems ROS per HPI, all other systems reviewed and negative Physical Exam Vital Signs Date Time Temp Pulse Resp B/P (MAP) Pulse Ox O2 Delivery O2 Flow Rate FiO2 04/27/17 17:39 36.6 101 20 147/106 (120) 95 Room Air 04/27/17 17:11 37.2 96 16 127/96 96 04/27/17 16:51 Room Air 04/27/17 14:55 96 16 127/96 96 Room Air 04/27/17 14:24 105 16 138/104 97 Room Air 04/27/17 14:23 97 Room Air 04/27/17 14:23 97 Room Air 04/27/17 14:16 104 04/27/17 13:38 37.2 106 22 164/103 96 Room Air General Appearance: + mild distress (anxious, tremulous) Head: normocephalic Eyes: normal inspection ENT: hearing grossly normal, + nasal congestion Neck: no JVD Respiratory/Chest: lungs clear, normal breath sounds, no respiratory distress Cardiovascular: regular rate, rhythm, no edema, normal peripheral pulses Abdomen/GI: normal bowel sounds, non tender, soft Extremities/Musculoskelatal: normal inspection, no calf tenderness Neurologic/Psych: no motor/sensory deficits, alert, oriented x 3 Skin: normal color, warm/dry Diagnostics Laboratory Results Results Past 24 Hours Test 04/27/17 13:50 Range/Units White Blood Count 11.11 4.8-10.8 K/uL Red Blood Count 4.80 4.7-6.1 M/uL Hemoglobin 16.2 14.0-18.0 g/dL Hematocrit 45.5 42-52 % Mean Corpuscular Volume 94.8 80-100 fL Mean Corpuscular Hemoglobin 33.8 25-34 pg Mean Corpuscular Hemoglobin Concent 35.6 32-36 g/dl RDW Standard Deviation 43.8 36.4-46.3 fL RDW Coefficient of Variation 12.6 11.5-14.5 % Platelet Count 196 130-400 K/uL Mean Platelet Volume 9.3 7.4-10.4 fL Prothrombin Time 10.7 9.0-12.0 SECONDS Prothromb Time International Ratio 1.0 0.9-1.1 Activated Partial Thromboplast Time 26.1 21.0-31.0 SECONDS Partial Thromboplastin Ratio 1.0 Sodium Level 136 136-145 mmol/L Potassium Level 3.8 3.5-5.1 mmol/L Chloride Level 102 98-107 mmol/L Carbon Dioxide Level 27 21-32 mmol/L Anion Gap 7.0 3-11 mmol/L Blood Urea Nitrogen 25 7-18 mg/dl Creatinine 1.10 0.60-1.40 mg/dl Est Creatinine Clear Calc Drug Dose 85.8 ml/min Estimated GFR () 87.7 Estimated GFR (Non- 75.7 BUN/Creatinine Ratio 23.1 10-20 Random Glucose 133 70-99 mg/dl Calcium Level 9.1 8.5-10.1 mg/dl Total Bilirubin 1.5 0.2-1 mg/dl Aspartate Amino Transf (AST/SGOT) 30 15-37 U/L Alanine Aminotransferase (ALT/SGPT) 37 12-78 U/L Alkaline Phosphatase 91 45-117 U/L Total Creatine Kinase 454 39-308 U/L Creatine Kinase MB 9.9 0.5-3.6 ng/ml Creatine Kinase MB Ratio 2.2 0-3.0 Troponin I 0.059 0-0.045 ng/ml Total Protein 7.8 6.4-8.2 gm/dl Albumin 3.8 3.4-5.0 gm/dl Globulin 4.0 2.5-4.0 gm/dl Albumin/Globulin Ratio 1.0 0.9-2 Diagnostic Radiology CXR IMPRESSION: Negative chest. Impression Assessment and Plan ETOH WITHDRAWAL - admit to tele - patient presenting with reports of chest pain and symptoms of alcohol withdrawal; long standing history of ETOH abuse and recently binged on 3L of Vodka over the past 3 days - currently hemodynamically stable - s/p Ativan 1mg IV x 2 in ED - will avoid banana bag due to reduced EF; will give PO multivitamin, folic acid , and thiamine - withdrawal protocol with Gabapentin and PRN Ativan - psychiatry consult CAD, HX RECENT NSTEMI, ISCHEMIC CARDIOMYOPATHY - anterior STEMI 03/29/17 s/p JEFFREY to LAD; EF 30-35%; is to be wearing LifeVest however patient reports it caused severe anxiety - patient reports chest pain however has been persistent since his hospital discharge - as an outpatient beta jb was increased and was started on nitrate - EKG without acute ST changes, trop mildly elevated at 0.059 (likely trending down from recent STEMI) - continue to cycle cardiac enzymes, check resting echo - continue ASA, Plavix, beta jb, statin, ACEi, furosemide - case discussed with Dr. Gee HEPATITIS C DVT PROPHYLAXIS - SCDs DISPO - In my clinical judgment this beneficiary meets acute admission criteria, established by [facility], that includes being hospitalized through two midnights. Agree with above h and p.56m who recently had stemi and s/p stent placement and ef of 35% and could not tolerate live vest was sent to Er for possible alcohol withdrawal. Since discharge patient BP was elevated and meds were adjusted by cardiology. Patient says he started to drink more since discharge as he was not working because of his heart condition and getting bored. Today at cardiology office was found shaky and was sent to er. Has some chest pain since discharge.no sob. Afebrile. a/p Alcohol withdrawal per protocol Chest pain recent CAD persistent since discharge to continue current cardiac medication echo cardiology consult tele monitoring Advanced Directives Existing Living Will: No Existing Power of Barrel Turner: No VTE Prophylaxis VTE Risk Assessment Done? Y/N: Yes Risk Level: Low
[2017-04-27] MEDS: LACTOBACILLUS ACIDOPHILUS (FLORANEX) TAB PO SCH (19:18)
[2017-04-27 19:31] VITALS: BP 122/80; PULSE 102; TEMP 36.9; O2SAT 96
[2017-04-27] MEDS ORDERED: NICOTINE 14 MG/24 HR TDSY TD ONE (19:45)
[2017-04-27] MEDS ORDERED: NURSING VERBAL MED ORDER ONE (19:45)
[2017-04-27 20:00] VITALS: O2SAT 96
[2017-04-27 21:22] VITALS: BP 121/84; PULSE 101
[2017-04-27] MEDS: ACETAMINOPHEN 325 MG TAB PO PRN (21:23)
[2017-04-27] MEDS: CARVEDILOL 12.5 MG TAB PO SCH (21:24)
[2017-04-27] MEDS: PANTOprazole SOD 40 MG TAB PO SCH (21:24)
[2017-04-27] MEDS: GABAPENTIN 600 MG TAB PO SCH (23:55)
[2017-04-28] VITALS (14 sets, daily range): BP systolic 101–131; BP diastolic 68–88; PULSE 69–95; TEMP 36.4–37.1; O2SAT 96–98
[2017-04-28 02:07] LABS: CKMB/CK RATIO 1.8 (0-3.0)
[2017-04-28 06:08] LABS: HEMATOCRIT 41.5 % (42-52); MEAN CELL VOLUME 97.9 fL (80-100); MEAN CORPUSCULAR HEMOGLOBIN 33.5 pg (25-34); MEAN CORPUSCULAR HGB CONC 34.2 g/dl (32-36); MEAN PLATELET VOLUME 9.5 fL (7.4-10.4); PLATELET COUNT 129 K/uL (130-400); RED BLOOD COUNT 4.24 M/uL (4.7-6.1); WHITE BLOOD COUNT 6.77 K/uL (4.8-10.8)
[2017-04-28] MEDS: GABAPENTIN 600 MG TAB PO SCH ×3 (06:42→21:41)
[2017-04-28 06:50] LABS: BUN/CREATININE RATIO 23.4 (10-20); CREATININE 1.1 mg/dl (0.60-1.40); POTASSIUM 3.6 mmol/L (3.5-5.1)
[2017-04-28] MEDS: NICOTINE 14 MG/24 HR TDSY TD SCH (08:16)
[2017-04-28] MEDS: ASPIRIN 81 MG ECTAB PO SCH (08:17)
[2017-04-28] MEDS: LISINOPRIL 20 MG TAB PO SCH (08:17)
[2017-04-28] MEDS: ISOSORBIDE MONONITRATE 30 MG TABCR PO SCH (08:17)
[2017-04-28] MEDS: CARVEDILOL 12.5 MG TAB PO SCH ×2 (08:17→20:48)
[2017-04-28] MEDS: CLOPIDOGREL BISULFATE 75 MG TAB PO SCH (08:17)
[2017-04-28] MEDS: PANTOprazole SOD 40 MG TAB PO SCH ×2 (08:18→20:49)
[2017-04-28] MEDS: LACTOBACILLUS ACIDOPHILUS (FLORANEX) TAB PO SCH ×3 (08:18→16:22)
[2017-04-28] MEDS: ATORVASTATIN 40 MG TAB PO SCH (08:19)
[2017-04-28] MEDS ORDERED: NICOTINE 14 MG/24 HR TDSY TD SCH (09:00)
[2017-04-28] MEDS ORDERED: FUROSEMIDE 20 MG TAB PO SCH (09:00)
[2017-04-28] MEDS ORDERED: LORAZEPAM 2 MG/ML 1 ML VIAL IV PRN (09:00)
--- NOTE | 2017-04-28 09:30 | ECHOCARDIOGRAM REPORT ---
*NOTICE TO RECEIVING [employer] This information is strictly Confidential and protected under [place] law. [place] law prohibits you from making any further disclosure of this information unless further disclosure is expressly permitted by the written consent of the person to whom it pertains or is authorized by law. A general authorization for the release of medical or other information is not sufficient for this purpose. Hospital accepts no responsibility if the information is made available to any other person, INCLUDING THE PATIENT. Interpretation Summary * Name: JAZMIN PARK Study Date: 04/28/2017 08:29 AM BP: 105/72 mmHg * Patient Location: [facility]\S\[id number]\S\[id number] HR: 69 * : 1960 (M/d/yyyy) Gender: Male Height: 67 in * Age: 56 yrs Ethnicity: [place] Weight: 217 lb * Ordering Physician: Alondra Cantrell * Referring Physician: Self, Referred * Performed By: Divine Degroot RDCS * * Reason For Study: CHEST PAIN * BSA: 2.1 m2 * The study was technically adequate. * -- Conclusions -- * There is mild concentric left ventricular hypertrophy. * The left ventricular wall motion is normal. * No regional wall motion abnormalities noted. * Grade I diastolic dysfunction, (abnormal relaxation pattern). * Compared to the prior study dated 03/30/17, the large LAD coronary wall motion abnormality has resolved and there has been and interval improvement in the LV ejection fraction which is now normal. Procedure Details * A complete two-dimensional transthoracic echocardiogram was performed (2D, M-mode, Doppler and color flow Doppler). Left Ventricle * The left ventricle is normal in size. * There is mild concentric left ventricular hypertrophy. * Ejection Fraction = 55-60%. * Left ventricular systolic function is normal. * The left ventricular wall motion is normal. * No regional wall motion abnormalities noted. Right Ventricle * The right ventricle is normal in size and function. Atria * The left atrial size is normal. * Right atrial size is normal. * There is no evidence of atrial septal defect, but resolution does not allow assessment for a patent foramen ovale. Mitral Valve * The mitral valve is normal. * There is no mitral valve stenosis. * Significant mitral regurgitation is absent. Tricuspid Valve * The tricuspid valve is normal. * There is no tricuspid stenosis. * Significant tricuspid regurgitation is absent. Aortic Valve * The aortic valve is trileaflet. * Aortic stenosis is absent. * There is no significant aortic regurgitation. Pulmonic Valve * The pulmonary valve is not well seen, but the Doppler examination is normal without significant regurgitation or stenosis. Great Vessels * The aortic root and proximal ascending aorta are normal sized. Pericardium/Pleural * There is no pericardial effusion. Great Vessels * Normal inferior vena cava diameter and respiratory variation suggests normal central venous pressure. Left Ventricular Diastolic Function * Grade I diastolic dysfunction, (abnormal relaxation pattern). MMode 2D Measurements and Calculations IVSd 1.5 cm IVSs 2.1 cm LVIDd 3.8 cm LVIDs 2.6 cm LVPWd 1.3 cm LVPWs 1.4 cm IVS/LVPW 1.1 FS 30.6 % EDV(Teich) 60.2 ml ESV(Teich) 24.7 ml EF(Teich) 59.0 % EDV(cubed) 52.9 ml ESV(cubed) 17.7 ml EF(cubed) 66.6 % % IVS thick 45.6 % % LVPW thick 4.4 % LV mass(C)d 186.0 grams LV mass(C)dI 88.9 grams/m\S\2 LV mass(C)s 173.1 grams LV mass(C)sI 82.7 grams/m\S\2 SV(Teich) 35.5 ml SI(Teich) 16.9 ml/m\S\2 SV(cubed) 35.2 ml SI(cubed) 16.8 ml/m\S\2 LVAd ap4 34.0 cm\S\2 LVLd ap4 9.5 cm EDV(MOD-sp4) 99.1 ml EDV(sp4-el) 103.2 ml LVAs ap4 20.6 cm\S\2 LVLs ap4 8.0 cm ESV(MOD-sp4) 48.5 ml ESV(sp4-el) 45.2 ml EF(MOD-sp4) 51.1 % EF(sp4-el) 56.2 % LVAd ap2 27.5 cm\S\2 LVLd ap2 9.3 cm EDV(MOD-sp2) 66.0 ml EDV(sp2-el) 69.1 ml LVAs ap2 16.5 cm\S\2 LVLs ap2 7.7 cm ESV(MOD-sp2) 29.3 ml ESV(sp2-el) 29.7 ml EF(MOD-sp2) 55.6 % EF(sp2-el) 57.0 % LVLd %diff -2.14 % EDV(MOD-bp) 80.6 ml LVLs %diff -3.21 % ESV(MOD-bp) 37.1 ml EF(MOD-bp) 53.9 % SV(MOD-sp4) 50.6 ml SI(MOD-sp4) 24.2 ml/m\S\2 SV(MOD-sp2) 36.7 ml SI(MOD-sp2) 17.5 ml/m\S\2 SV(MOD-bp) 43.4 ml SI(MOD-bp) 20.7 ml/m\S\2 SV(sp4-el) 58.0 ml SI(sp4-el) 27.7 ml/m\S\2 SV(sp2-el) 39.4 ml SI(sp2-el) 18.8 ml/m\S\2 Doppler Measurements and Calculations MV E max madeline 70.9 cm/sec MV A max madeline 85.5 cm/sec MV E/A 0.83 MV dec time 0.26 sec Ao V2 max 116.4 cm/sec Ao max PG 5.4 mmHg Ao max PG (full) 0.72 mmHg LV V1 max PG 4.7 mmHg LV V1 max 108.4 cm/sec TR max madeline 233.7 cm/sec
[2017-04-28] MEDS: LORAZEPAM INJ 1 MG in SYRINGE 0.5 ML IV PRN ×3 (10:47→19:46)
[2017-04-28] MEDS: THIAMINE HCL 100 MG TAB PO SCH (10:48)
[2017-04-28] MEDS: MULTIVITAMIN TAB PO SCH (10:49)
--- NOTE | 2017-04-28 11:33 | Cardiology Consultation ---
Cardiology Consultation Date of Consultation: Apr 28, 2017 History of Present Illness Patient is a 56 year old male seen in cardiology consultation per the request of DENNYS López and Dr. Brown given his history of recent myocardial infarction. The patient had returned for a routine cardiology follow-up visit yesterday and had described that he had reverted back to significant alcohol use. He stated that on he started drinking significantly, he apparently drank 3 L of vodka over the weekend, and his last drink was on Tuesday. Yesterday which was Tuesday he was scheduled for a routine visit at our office at 1 PM with Sisi KERNS and on arrival, the patient was found to have sinus tachycardia in the 120 beat per minute range, he is diaphoretic, and had hand tremors. His spouse had called the evening before and had spoken to the playground supervisor farm demonstrator stating that she was concerned that her had reverted to heavy alcohol use. She had been counseled that if he is ready to quit, he should be taken to the emergency department for withdrawal care. Since the issues were still ongoing when he arrived to the office yesterday, hospital based care was recommended and the patient was therefore admitted and his been placed on lorazepam with improvement in his tachycardia symptoms. The patient describes ongoing vague chest discomfort that has been present ever since I had seen him in the hours after his intervention to the LAD last month. At present, he describes a very mild chest pressure that occurs if he takes a deep breath in. He does not describe that it comes on significantly with exercise. The patient most recently been seen by the undersigned in outpatient cardiology follow-up on 04/14/17. His cardiac history dates back to 03/29/2017 when he presented to the emergency department with several days of waxing waning chest discomfort that became acutely worse when the patient had attempted to go to work that day. He presented to the emergency department in extremis and was assessed by Dr. Mcfarland of interventional Cardiology after EKG revealed acute left-sided ST segment elevation. Emergent cardiac catheterization revealed 99% proximal LAD stenosis with 20% mid LAD and 30% ostial diagonal 2. The right coronary artery had a 20% stenosis in the mid vessel, otherwise no significant disease. Patient underwent PCI including implantation of drug-eluting stent in the LAD via the right radial approach. Postprocedure, EKG revealed resolution of the previously noted ST segment elevation, but while hospitalized he was noted to have findings of a vault anterior anterolateral infarction with Q-waves in the anteroseptal, anterior leads. An echocardiogram performed the day after after his coronary intervention revealed a large LAD territory wall motion abnormality with moderate left ventricular systolic dysfunction in the range of 30 to 35%. 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 He has been troubled because of his work being limited by his recent diagnosis of coronary artery disease, with moderate severe LV systolic dysfunction noted on his echocardiogram in March 2017. He has a history of recurrent alcohol dependence. He has been admitted in the past for alcohol rehabilitation. When I had seen him at the time of his myocardial infarction last month he described that he has a few beers a day but had not been drinking heavily. He apparently started treatment heavily again about a week ago. Review Of Systems See above for pertinent positives & negatives. A total of 10 systems reviewed and were otherwise negative. Allergies Coded Allergies: No Known Allergies (Unverified , 05/28/16) Medications Reported Home Medications Medications Dose Route/Sig Max Daily Dose Days Date Category Coreg (Carvedilol) 12.5 Mg Tab 1 Tab PO BID 90 04/27/17 Reported Lasix (Furosemide) 20 Mg Tab 20 Mg PO DAILY 04/27/17 Reported Imdur Ext Rel (Isosorbide Mononitrate) 30 Mg Ertab 30 Mg PO DAILY 04/27/17 Reported Aspirin EC Low Dose (Aspirin) 81 Mg Ectab 81 Mg PO QAM 30 03/31/17 Rx Nitrostat (Nitroglycerin) 0.4 Mg/1 Tab Subl 0.4 Mg SL UD PRN 7 03/31/17 Rx Lisinopril 20 Mg Tab 1 Tab PO DAILY 30 03/31/17 Rx Atorvastatin Calcium (Atorvastatin) 40 Mg Tab 40 Mg PO QAM 30 03/31/17 Rx Clopidogrel (Clopidogrel Bisulfate) 75 Mg Tab 75 Mg PO QAM 30 03/31/17 Rx Vitamin B-1 (Thiamine HCl) 100 Mg Tab 100 Mg PO QAM 10/26/16 Rx Folic Acid 1 Mg Tab 1 Mg PO QAM 10/26/16 Rx Pantoprazole Sodium (Pantoprazole) 40 Mg Tab 40 Mg PO BID 10/26/16 Rx Acidophilus (Lactobacillus) 1 Cap Cap 1 Cap PO TIDM 10/26/16 Rx Ultram (Tramadol HCl) 50 Mg Tab 50 Mg PO Q6H PRN 10/25/16 Reported Physical Exam Vital Signs (Last 8hrs): Last 8 Hrs Date Time Temp Pulse Resp B/P (MAP) Pulse Ox O2 Delivery O2 Flow Rate FiO2 04/28/17 08:00 97 Room Air 04/28/17 07:47 36.7 69 18 105/72 (83) 97 Room Air 04/28/17 06:05 76 122/84 (97) 04/28/17 04:00 36.4 74 20 118/79 (92) 97 Room Air 04/28/17 04:00 Room Air General Appearance: Alert and Oriented x3. NAD. Head: Normocephalic Atraumatic. Eyes: PERRLA, EOMI, conjunctiva and sclera clear Neck: Supple. No carotid bruits noted. No JVD. No HJD. Respiratory: Breath sounds clear to auscultation bilaterally. No w/r/r. Cardiovascular: Reg rate and rhythm. S1 and S2 noted. No murmurs, rubs, gallops. PMI non displace. Abdomen: Normal bowel sounds, soft nontender. no abdominal bruits. Extremities: No edema, no clubbing or cyanosis. distal pulses 2/4 bilaterally. Neuro: No focal deficits. Psychiatric: Normal affect. Data Last Resulted 04/28/17 05:47 Last Resulted 04/28/17 05:47 Past 24 Hours Test 04/27/17 13:50 04/27/17 19:01 04/28/17 01:00 Range/Units Creatine Kinase MB 9.9 H 8.4 H 6.5 H 0.5-3.6 ng/ml Creatine Kinase MB Ratio 2.2 2.0 1.8 0-3.0 Prothromb Time International Ratio 1.0 0.9-1.1 Prothrombin Time 10.7 9.0-12.0 SECONDS Total Creatine Kinase 454 H 423 H 361 H 39-308 U/L Troponin I 0.059 *H 0.051 *H 0.050 *H 0-0.045 ng/ml EKG performed on arrival yesterday 04/28/17 and again today, reveals normal sinus rhythm with diffuse T-wave inversions in the precordial leads V2 to V6, as well as inferior T-wave inversions. Compared to his most recent outpatient EKG dated 04/14/17, the deep T-wave inversions are relatively similar with the exception that they're more pronounced in lead V6. Telemetry reviewed: Sinus rhythm and sinus tachycardia, currently sinus rhythm in the 80 beat per minute range Transthoracic echocardiogram performed 04/28/2017 and reviewed in apparently by the undersigned: * -- Conclusions -- * There is mild concentric left ventricular hypertrophy. * The left ventricular wall motion is normal. * No regional wall motion abnormalities noted. * Grade I diastolic dysfunction, (abnormal relaxation pattern). * Compared to the prior study dated 03/30/17, the large LAD coronary wall motion abnormality has resolved and there has been and interval improvement in the LV ejection fraction which is now normal. Assessment & Plan Impression: 56-year-old male 1. Acute alcohol withdrawal, alcohol dependence 2. Coronary heart disease, recent anterior, apical, lateral ST segment elevation myocardial infarction, 03/29/17, with emergent PCI, drug-eluting stent to the LAD, residual branch vessel disease noted with mild residual stenosis in the diagonal branches and distal to the LAD stent 3. Hypertension 4. Dyslipidemia Discussion/recommendations: The patient has complained of residual chest discomfort since his initial coronary intervention. This could be due to microvascular dysfunction and therefore he was placed on indoor. At present, he describes a mild pleuritic chest discomfort that he is able to reproduce when he is lying flat in bed, similar to what he described to me at his most recent outpatient visit on , it is also somewhat similar to what he described to me immediately post PCI on 03/29/17 when I had seen him in the ICU early after his procedure. At present he does have a mild elevation in his CPK, MB, and troponin, but I think this is likely due to him being sedentary, in bed, and having been tachycardic and in distress regarding alcohol withdrawal leading up to this hospital stay. He was ill in appearance when he presented to the outpatient clinic yesterday and was referred for hospital-based therapy. He states that he has not missed any doses of aspirin or clopidogrel. I think that if he was having a problem this early after the LAD stent, he would not have subtle symptoms but wouldn't be having a significant ST segment elevation myocardial infarction event. He does have an abnormal EKG with findings of evolved large LAD territory myocardial infarction, the T-wave changes are actually stable compared to his most recent outpatient EKG on 04/14/[address] segment elevation noted on his initial presentation last month has resolved post procedure. An echocardiogram was performed today and reviewed personally by the undersigned. The large LAD territory wall motion abnormality has completely resolved, and his ejection fraction which was moderately depressed in the 30-35 % range last month has completely normalized and his qualitative ejection fraction is in the 55-60% range at present. This is good news, but appear that the past echo findings were consistent with myocardial stunning as compared to scar tissue, as his function has improved within the last several weeks. Since his ejection fraction is improved I'm going to discontinue his furosemide. He is to continue his current cardiac medications. I shared the news about his ejection fraction improving with the patient in person as well as with his by telephone. At present I think we should continue to treat him for alcohol withdrawal with Ativan. I'm not certain if further inpatient rehabilitation will be necessary. The patient is eager to return to work, with his sister normalized ejection fraction I think this would be reasonable from a cardiac perspective, first we have to address his ongoing alcohol issues. Mack Deras DO, FACC, FACOI Associate Bioinformatics Support Specialist [facility] [place], [facility]
[2017-04-28] MEDS: METRONIDAZOLE 500 MG TAB PO SCH ×2 (14:30→20:48)
[2017-04-28] MEDS: ACETAMINOPHEN 325 MG TAB PO PRN (16:19)
--- NOTE | 2017-04-28 18:36 | Progress Note ---
Internal Med Progress Note Date of Service: Apr 28, 2017. Provider Documentation: SUBJECTIVE: denies of any chest pain or SOB no anxiety symptom has ongoing diarrhea , no nausea or abdominal pain OBJECTIVE: Vital Signs-as noted below Exam: General-no sign of distress Eyes-sclera non icteric ENT-NAD Neck-no JVD Lungs-CTA Heart-regular S1/S2 Abdomen-soft, non tender Extremities-no rash or deformity Neuro-AAO x3, no focal deficit Lab data as noted below. ASSESSMENT & PLAN: ETOH WITHDRAWAL - - patient presented with reports of chest pain and symptoms of alcohol withdrawal; long standing history of ETOH abuse and recently binged on 3L of Vodka over the past 3 days - currently hemodynamically stable - cont ETOH withdrawal protocol with Gabapentin and PRN Ativan ANXIETY DISORDER : mentions of having anxiety attack resorts to alcohol recently started on Celexa on PRN Ativan per withdrawal protocol Psych eval requested C DIFF mentions of ongoing diarrhea stool positive for C diff PO Flagyl ordered CAD, HX RECENT NSTEMI, ISCHEMIC CARDIOMYOPATHY - anterior STEMI 03/29/17 s/p JEFFREY to LAD; EF 30-35%; is to be wearing LifeVest however patient reports it caused severe anxiety - EKG without acute ST changes, trop mildly elevated at 0.059 (likely trending down from recent STEMI) -Repeat ECHO shows improved EF 60 % , appreciate input form Cardiology - continue ASA, Plavix, beta jb, statin, ACEi, furosemide - HEPATITIS C DVT PROPHYLAXIS - SCDs DISPOSITION discharge home when medically stable Vital Signs: Date Time Temp Pulse Resp B/P (MAP) Pulse Ox O2 Delivery O2 Flow Rate FiO2 04/29/17 07:18 36.7 69 20 141/96 (111) 99 Room Air 04/29/17 05:42 Room Air 04/29/17 04:51 36.9 69 16 118/76 (90) 98 Room Air 04/29/17 00:05 Room Air 04/28/17 23:40 36.7 72 20 128/86 (100) 97 Room Air 04/28/17 20:44 36.8 70 20 108/71 (83) 97 Room Air 04/28/17 20:00 96 Room Air 04/28/17 19:54 36.7 75 20 123/84 (97) 97 Room Air 04/28/17 16:00 96 Room Air 04/28/17 15:56 36.5 81 18 116/78 (91) 96 Room Air 04/28/17 15:28 36.9 91 20 101/68 (79) 96 Room Air 04/28/17 12:00 97 Room Air 04/28/17 11:50 37.1 95 18 105/70 (82) 97 Room Air Lab Results: Microbiology Results 04/28/17 C.difficile Toxin B Gene (PCR) - Final, Complete Positive for C. difficile toxin B gene 04/28/17 Shiga Toxin Test, Received Pending 04/28/17 Stool Culture, Received Pending
[2017-04-29] VITALS (9 sets, daily range): BP systolic 118–149; BP diastolic 76–101; PULSE 66–78; TEMP 36.7–37.1; O2SAT 96–99
[2017-04-29] MEDS: LORAZEPAM INJ 1 MG in SYRINGE 0.5 ML IV PRN ×3 (02:25→16:04)
[2017-04-29] MEDS: GABAPENTIN 600 MG TAB PO SCH (06:25)
--- NOTE | 2017-04-29 07:43 | Psychiatric Consultation ---
Psychiatric Consultation Date of Service: Apr 29, 2017. Consult requested to evaluate anxiety and depression in the setting of alcohol dependence. Patient was approached X 2 by psych liaison, and both times declined psychiatric intervention or to see a psychiatric provider.
[2017-04-29] MEDS: THIAMINE HCL 100 MG TAB PO SCH (07:59)
[2017-04-29] MEDS: LACTOBACILLUS ACIDOPHILUS (FLORANEX) TAB PO SCH ×3 (08:00→17:11)
[2017-04-29] MEDS: MULTIVITAMIN TAB PO SCH (08:00)
[2017-04-29] MEDS: LISINOPRIL 20 MG TAB PO SCH (08:00)
[2017-04-29] MEDS: ASPIRIN 81 MG ECTAB PO SCH (08:01)
[2017-04-29] MEDS: CARVEDILOL 12.5 MG TAB PO SCH ×2 (08:01→20:31)
[2017-04-29] MEDS: ATORVASTATIN 40 MG TAB PO SCH (08:01)
[2017-04-29] MEDS: PANTOprazole SOD 40 MG TAB PO SCH ×2 (08:01→20:31)
[2017-04-29] MEDS: CLOPIDOGREL BISULFATE 75 MG TAB PO SCH (08:02)
[2017-04-29] MEDS: ISOSORBIDE MONONITRATE 30 MG TABCR PO SCH (08:02)
[2017-04-29] MEDS: NICOTINE 14 MG/24 HR TDSY TD SCH (08:02)
[2017-04-29] MEDS: METRONIDAZOLE 500 MG TAB PO SCH (08:02)
--- NOTE | 2017-04-29 08:20 | Progress Note ---
Progress Note Date of Service Apr 29, 2017. Progress Note REVIEWING PT'S CHART : hx of recurrent C diff ( positive C diff in 11/05; 06/01 ) PO Flagyl D/gemma changed to PO Vancomycin
--- NOTE | 2017-04-29 08:34 | Cardiology Follow-Up ---
Subjective General Date of Service: Apr 29, 2017. Chief Complaint: folllow up CAD Pt evaluation today including: conversation w/ patient, conversation w/ family History of Present Illness The patient is a 56 year old male seen in cardiology follow up. He feels better. Denies chest pain or palpitations. His C diff stool study was positive. Telemetry reveals stable SR. Allergies Coded Allergies: No Known Allergies (Unverified , 05/28/16) Social History Smoking Status: Current Every Day Smoker Hx Tobacco Use In Past Year?: Yes Hx Alcohol Use - Type And Amou: Yes (4 beers/day, recent increase:3 L of vodaka in 6 days-last drink 04-26-17) Hx Substance Use - Type And Am: No Problem List Medical Problems: (1) Abdominal pain Status: Acute (2) Abnormal cardiac enzyme level Status: Acute (3) Acute gastroenteritis Status: Acute (4) Alcohol withdrawal Status: Acute (5) Alcohol withdrawal Status: Acute (6) Colitis Status: Acute (7) Dehydration Status: Acute (8) Dehydration Status: Acute (9) Diarrhea Status: Acute (10) Diffuse abdominal pain Status: Acute (11) Failure of outpatient treatment Status: Acute (12) Mood disorder Status: Acute (13) STEMI (ST elevation myocardial infarction) Status: Acute (14) Transaminitis Status: Acute Physical Exam Vital Signs Last Vital Signs Documentation Date Time Temp Pulse Resp B/P (MAP) Pulse Ox O2 Delivery O2 Flow Rate FiO2 04/29/17 07:18 36.7 69 20 141/96 (111) 99 Room Air Physical Exam Constitutional: Level of Distress: NAD Head: normocephalic Neck: supple Lungs: Auscultation: no wheezing, no rales/crackles, no rhonchi Cardiovascular: Apical Impulse: not displaced Heart Auscultation: no murmurs, no rubs, no gallops Abdomen: Inspection & Palpation: soft, non-distended Extremities: no edema Neurologic: Gait & Station: pertinent finding (no focal deficits ) Assessment and Plan Assessment and Plan Impression: 56-year-old male 1. Alcohol withdrawal, alcohol dependence 2. Coronary heart disease, recent anterior, apical, lateral ST segment elevation myocardial infarction, 03/29/17, with emergent PCI, drug-eluting stent to the LAD, residual branch vessel disease noted with mild residual stenosis in the diagonal branches and distal to the LAD stent 3. Hypertension 4. Dyslipidemia 5. Recurrent C difficile colitis Plan: Do not believe the elevation in CPK and troponin are call center support representative of ACS, but rather acute withdraw, skeletal muscle breakdown from being in bed/ sedentary and mild trop elevation due to myocardial strain from the metabolic stresses on his body. Has abnormal EKG , but is consistent with evolution of LAD NM, unchanged compared to outpt follow up EKG. LVEF and wall motion has normalized on echo, no evidence of residual ischemic CM. Continue prior outpt cardiac meds, with exception that furosemide had been DCd. Pt declined to meet with psych team. Stable for return to work from a pure post NM standpoint, however, alcohol dependences needs to be addressed. If he remains in hospital, would add pharmacologic DVT prophylaxis since unable to ambulate in [place] due to isolation, C Diff status. Will differ to hospitalist service.
[2017-04-29] MEDS ORDERED: ESCITALOPRAM OXALATE 10 MG TAB PO SCH (09:00)
[2017-04-29] MEDS: RASPBERRY SYRUP 5 ML UDP PO SCH ×4 (09:23→20:31)
[2017-04-29] MEDS: VANCOMYCIN HCL 125 MG/2.5ML SOLN PO SCH ×4 (09:23→20:31)
[2017-04-29] MEDS ORDERED: GABAPENTIN 600 MG TAB PO SCH (18:00)
--- NOTE | 2017-04-29 19:36 | Progress Note ---
Internal Med Progress Note Date of Service: Apr 29, 2017. Provider Documentation: SUBJECTIVE: mentions that diarrhea has improved no complain of chest pain mentions anxiety has improved markedly requesting to be discharged home today OBJECTIVE: Vital Signs-as noted below Exam: General-no sign of distress Eyes-sclera non icteric ENT-NAD Neck-no JVD Lungs-CTA Heart-regular S1/S2 Abdomen-soft, non tender Extremities-no rash or deformity Neuro-AAO x3, no focal deficit Lab data as noted below. ASSESSMENT & PLAN: ETOH WITHDRAWAL -denies of any anxiety , or sign of withdrawal present as well ' wants to be discharged home does not feel he is will have craving for alcohol - patient presented with reports of chest pain and symptoms of alcohol withdrawal; long standing history of ETOH abuse and recently binged on 3L of Vodka over the past 3 days - currently hemodynamically stable - treated with ETOH withdrawal protocol with Gabapentin and PRN Ativan pt wants to follow up with alcohol rehab -AAA and counselling service at [facility] pt is counselled over and over aging for complete alcohol abstinence to prevent future HI /cardiac deconditioning both pt and verbalizes understanding ANXIETY DISORDER : mentions of having anxiety attack resorts to alcohol recently started on Lexapro resumed Lexapro 10 mg PO daily Psych eval requested -pt refused to have eval and follow up with psych C DIFF mentions of ongoing diarrhea stool positive for C diff started on PO Vancomycin for 10 days pt and counselled for strict hand washing contact isolation to prevent spread CAD, HX RECENT NSTEMI, ISCHEMIC CARDIOMYOPATHY - anterior STEMI 03/29/17 s/p JEFFREY to LAD; EF 30-35%; is to be wearing LifeVest however patient reports it caused severe anxiety - EKG without acute ST changes, trop mildly elevated at 0.059 (likely trending down from recent STEMI) -Repeat ECHO shows improved EF 60 % , appreciate input form Cardiology - continue ASA, Plavix, beta jb, statin, ACEi, furosemide pt is counselled to alcohol abstinence per cardiology 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 to work note given to pt - HEPATITIS C DVT PROPHYLAXIS - SCDs DISPOSITION discharge home today Vital Signs: Date Time Temp Pulse Resp B/P (MAP) Pulse Ox O2 Delivery O2 Flow Rate FiO2 04/29/17 19:44 37.1 78 18 149/101 (117) 97 Room Air 04/29/17 16:11 37.1 66 20 137/91 (106) 97 Room Air 04/29/17 16:00 36.8 75 24 148/96 (113) 96 Room Air 04/29/17 16:00 96 Room Air 04/29/17 12:00 97 Room Air 04/29/17 11:05 36.7 73 20 134/87 (103) 97 Room Air 04/29/17 08:00 97 Room Air 04/29/17 07:18 36.7 69 20 141/96 (111) 99 Room Air 04/29/17 05:42 Room Air 04/29/17 04:51 36.9 69 16 118/76 (90) 98 Room Air 04/29/17 00:05 Room Air 04/28/17 23:40 36.7 72 20 128/86 (100) 97 Room Air 04/28/17 20:44 36.8 70 20 108/71 (83) 97 Room Air
[2017-04-29] MEDS ORDERED: LXP10 PO (19:55)
[2017-04-29] MEDS ORDERED: VNCS125 PO (19:55)
--- NOTE | 2017-04-29 19:56 | Discharge Instructions ---
Discharge Instructions Date of Service Apr 29, 2017. Admission Reason for Admission: Alcohol Withdrawal Discharge Discharge Diagnosis / Problem: ALCOHOL WITHDRAWL /CORONARY ARTERY DISEASE Discharge Goals Goal(s): Improve disease control, Diagnostic testing Activity Recommendations Activity Limitations: resume your previous activity . Instructions / Follow-Up Instructions / Follow-Up HOSPITAL FOLLOW UP WITH DR GRAY IN A WEEK Current Hospital Diet Patient's current hospital diet: AHA Diet (Heart Healthy), Low Sodium Diet (2gm Na) Discharge Diet Recommended Diet: AHA Diet (Heart Healthy), Low Sodium Diet (2gm Na) Pending Studies Studies pending at discharge: no Laboratory Results Hemoglobin A1c Test 03/29/17 13:53 Range/Units Estimated Average Glucose 131 mg/dl Hemoglobin A1c 6.2 H 4.5-5.6 % Lipid Panel Test 03/29/17 13:53 Range/Units Triglycerides Level 50 0-150 mg/dl Cholesterol Level 153 0-200 mg/dl HDL Cholesterol 52 mg/dl LDL Cholesterol Direct 91 mg/dl Cholesterol/HDL Ratio 2.9 LDL Cholesterol, Calculated mg/dl Work Instructions Return To Work: after follow-up (with family physician ) Medical Emergencies . Who to Call and When: Medical Emergencies: If at any time you feel your situation is an emergency, please call 911 immediately. . Non-Emergent Contact Non-Emergency issues call your: Primary Care Provider . . "Provider Documentation" section prepared by Livier Juarez. . VTE Core Measure Inpt VTE Proph given/why not?: Unfractionated heparin SQ [place] Drug Monitoring Program Search Results: patient reviewed within database Drug Monitoring Findings: Tramadol 50 mg script filled for # 100 tablets on 04/20/[address] Santana no further narcotic pain prescription given
--- NOTE | 2017-04-29 20:07 | Discharge Summary ---
Discharge Summary Date of Service Apr 29, 2017. Discharge Summary Admission Date: Apr 27, 2017 at 16:41 Discharge Date: Apr 29, 2017 Discharge Disposition: Home Principal Diagnosis: ALCOHOL WITHDRAWAL /CORONARY ARTERY DISEASE Procedures: ECHO : There is mild concentric left ventricular hypertrophy. The left ventricular wall motion is normal. No regional wall motion abnormalities noted. Grade I diastolic dysfunction, (abnormal relaxation pattern). Compared to the prior study dated 03/30/17, the large LAD coronary wall motion abnormality has resolved and there has been and interval improvement in the LV ejection fraction which is now normal. Consultations: [facility] Medication Reconciliation New Medications: Escitalopram Oxalate (Escitalopram Oxalate) 10 Mg Tab 10 MG PO QAM for 30 Days, #30 TAB 3 Refills Vancomycin HCl (Vancomycin HCl) 125 Mg/2.5 Ml Susp 125 MG PO QID for 10 Days, #100 ML Continued Medications: Aspirin (Aspirin EC Low Dose) 81 Mg Ectab 81 MG PO QAM for 30 Days Atorvastatin (Atorvastatin Calcium) 40 Mg Tab 40 MG PO QAM for 30 Days, #30 TAB Carvedilol (Coreg) 12.5 Mg Tab 1 TAB PO BID for 90 Days, #180 TAB 1 Refill Clopidogrel Bisulfate (Clopidogrel) 75 Mg Tab 75 MG PO QAM for 30 Days, #30 TAB Folic Acid (Folic Acid) 1 Mg Tab 1 MG PO QAM, #100 TAB Furosemide (Lasix) 20 Mg Tab 20 MG PO DAILY, TAB Isosorbide Mononitrate Ext Rel (Imdur Ext Rel) 30 Mg Ertab 30 MG PO DAILY, TAB Lactobacillus (Acidophilus) 1 Cap Cap 1 CAP PO TIDM, #30 CAP 0 Refills Lisinopril (Lisinopril) 20 Mg Tab 1 TAB PO DAILY for 30 Days Nitroglycerin (Nitrostat) 0.4 Mg/1 Tab Subl 0.4 MG SL UD PRN for Chest Pain for 7 Days Pantoprazole (Pantoprazole Sodium) 40 Mg Tab 40 MG PO BID, #60 TAB 1 Refill Thiamine HCl (Vitamin B-1) 100 Mg Tab 100 MG PO QAM, #100 TAB Discontinued Medications: Tramadol (Ultram) 50 Mg Tab 50 MG PO Q6H PRN for Pain, TAB Admission Information HPI (per Admitting provider): 56 year old male who presents to the ER for evaluation of alcohol withdrawal. Patient was recently admitted to [facility] 03/29 - 03/31 for anterior STEMI and underwent JEFFREY to LAD. EF was found to be 35%. Patient was advised to wear a life vest however was only able to tolerate it for about 5 days reporting it caused him severe anxiety. Since being discharged from the hospital, patient has followed up with his PCP and cardiology. BP was found to be significantly elevated and he had reported persistent chest pain. Carvedilol was increased and he was started on isosorbide and escitalopram. Patient also has a long standing history of alcohol abuse. He reports he typically drinks "a few" beers a night however since being home from the hospital and being unable to work, it has caused him to be depressed and anxious and has caused him to drink. He has drank 3L of vodka in the past 6 days, last drink being yesterday afternoon. He denies suicidal ideations. Patient reports a constant left sided chest pressure. He feels like it has gotten worse over the past few days when his alcohol intake has increased. He has been diaphoretic which he attributes to withdrawal. He denies shortness of breath. He reports appetite has been poor and he has been having some loose stools. No abdominal pain, nausea, BRBPR, or dark tarry stools. He denies lightheadedness, dizziness, or syncopal events. No fever or chills. He denies urinary symptoms. In the ER, patient is found to have a mildly elevated trop 0.059, EKG does not not any acute ST changes. He was treated with Ativan 1mg IV x 2, full dose ASA, nitro paste, and metoprolol 25mg PO. Physical Exam (per Admitting): General Appearance: + mild distress (anxious, tremulous) Head: normocephalic Eyes: normal inspection ENT: hearing grossly normal, + nasal congestion Neck: no JVD Respiratory/Chest: lungs clear, normal breath sounds, no respiratory distress Cardiovascular: regular rate, rhythm, no edema, normal peripheral pulses Abdomen/GI: normal bowel sounds, non tender, soft Extremities/Musculoskelatal: normal inspection, no calf tenderness Neurologic/Psych: no motor/sensory deficits, alert, oriented x 3 Skin: normal color, warm/dry Hospital Course ETOH WITHDRAWAL -denies of any anxiety , or sign of withdrawal present as well ' wants to be discharged home does not feel he is will have craving for alcohol - patient presented with reports of chest pain and symptoms of alcohol withdrawal; long standing history of ETOH abuse and recently binged on 3L of Vodka over the past 3 days - currently hemodynamically stable - treated with ETOH withdrawal protocol with Gabapentin and PRN Ativan pt wants to follow up with alcohol rehab -AAA and counselling service at [facility] pt is counselled over and over aging for complete alcohol abstinence to prevent future OR /cardiac deconditioning both pt and verbalizes understanding ANXIETY DISORDER : mentions of having anxiety attack resorts to alcohol recently started on Lexapro resumed Lexapro 10 mg PO daily Psych eval requested -pt refused to have eval and follow up with psych C DIFF mentions of ongoing diarrhea stool positive for C diff started on PO Vancomycin for 10 days pt and counselled for strict hand washing contact isolation to prevent spread CAD, HX RECENT NSTEMI, ISCHEMIC CARDIOMYOPATHY - anterior STEMI 03/29/17 s/p JEFFREY to LAD; EF 30-35%; is to be wearing LifeVest however patient reports it caused severe anxiety - EKG without acute ST changes, trop mildly elevated at 0.059 (likely trending down from recent STEMI) -Repeat ECHO shows improved EF 60 % , appreciate input form Cardiology - continue ASA, Plavix, beta jb, statin, ACEi, furosemide pt is counselled to alcohol abstinence per cardiology as 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 Discharge Instructions Discharge Instructions Date of Service Apr 29, 2017. Admission Reason for Admission: Alcohol Withdrawal Discharge Discharge Diagnosis / Problem: ALCOHOL WITHDRAWAL /CORONARY ARTERY DISEASE Discharge Goals Goal(s): Improve disease control, Diagnostic testing Activity Recommendations Activity Limitations: resume your previous activity . Instructions / Follow-Up Instructions / Follow-Up HOSPITAL FOLLOW UP WITH DR GRAY IN A WEEK Current Hospital Diet Patient's current hospital diet: AHA Diet (Heart Healthy), Low Sodium Diet (2gm Na) Discharge Diet Recommended Diet: AHA Diet (Heart Healthy), Low Sodium Diet (2gm Na) Pending Studies Studies pending at discharge: no Laboratory Results Hemoglobin A1c Test 03/29/17 13:53 Range/Units Estimated Average Glucose 131 mg/dl Hemoglobin A1c 6.2 H 4.5-5.6 % Lipid Panel Test 03/29/17 13:53 Range/Units Triglycerides Level 50 0-150 mg/dl Cholesterol Level 153 0-200 mg/dl HDL Cholesterol 52 mg/dl LDL Cholesterol Direct 91 mg/dl Cholesterol/HDL Ratio 2.9 LDL Cholesterol, Calculated mg/dl Work Instructions Return To Work: after follow-up (with family physician ) Medical Emergencies . Who to Call and When: Medical Emergencies: If at any time you feel your situation is an emergency, please call 911 immediately. . Non-Emergent Contact Non-Emergency issues call your: Primary Care Provider . . "Provider Documentation" section prepared by Livier Juarez. . VTE Core Measure Inpt VTE Proph given/why not?: Unfractionated heparin SQ PA Drug Monitoring Program Search Results: patient reviewed within database Drug Monitoring Findings: Tramadol 50 mg script filled for # 100 tablets on 04/20/[address] Santana no further narcotic pain prescription given Additional Copies To Dm Rachel M.D. Bradbury, James J., D.O.
[2017-05-01] MEDS ORDERED: GABAPENTIN 600 MG TAB PO SCH (06:00)
== END 2017-04-29 20:49 | disposition home or self-care (01) | DRG 897 ==
LOC: C.EDB 13:37 → C.MED 16:41 → ENRESERV 16:50
PROVIDERS: ADMIT Internal Medicine; ATTEND Hospitalist
DX: F10.239 Alcohol dependence with withdrawal, unspecified (principal); I25.2 Old myocardial infarction; Z83.3 Family history of diabetes mellitus; F17.200 Nicotine dependence, unspecified, uncomplicated; I25.10 Atherosclerotic heart disease of native coronary artery without angina pectoris; I25.5 Ischemic cardiomyopathy; B19.20 Unspecified viral hepatitis C without hepatic coma; F41.9 Anxiety disorder, unspecified; B96.89 Other specified bacterial agents as the cause of diseases classified elsewhere; I10 Essential (primary) hypertension

== ENCOUNTER 2017-09-19 21:07 | Inpatient (IN) | payer OTHER ==
[~2017-09-19] VITALS: Ht 167.6 cm; Wt 103.2 kg
[~2017-09-19 21:07] MED LIST changes: -ASPEC81 PO; +ASPI-320 PO; +CARV12.52 PO; -CRG625 PO; +FURO-85 PO; +ISOS30TA3 PO; +LISI-726 PO; -LSN20 PO; +LXP10 PO; +PANT1TAB4 PO; -PRT40 PO; +THIA100T27 PO; -THM100 PO; -TRAM-10 PO; +VNCS125 PO
[2017-09-19] MEDS ORDERED: SODIUM CHLORIDE 0.9% 1000ML 2,000 ML IV STA (21:27)
[2017-09-19] MEDS ORDERED: MULTI-VITAMIN INFUSION INJ 10 ML, THIAMINE HCL INJ 100 MG, FoLIC ACID INJ 1 MG in SODIU... IV ONE (21:30)
[2017-09-19] MEDS ORDERED: OPTIRAY 320 IV PRN (21:45)
[2017-09-19 21:51] LABS: BASO % 0.3 %; BASO ABS # 0.02 K/uL (0-0.2); EOS % 2.7 %; HEMATOCRIT 42.4 % (42-52); HEMOGLOBIN 14.7 g/dL (14.0-18.0); IG# 0.04 K/uL (0.00-0.02); LYMPH % 22.5 %; LYMPH ABS # 1.66 K/uL (1.2-3.4); MEAN CELL VOLUME 101.7 fL (80-100); MEAN CORPUSCULAR HEMOGLOBIN 35.3 pg (25-34); MEAN CORPUSCULAR HGB CONC 34.7 g/dl (32-36); MEAN PLATELET VOLUME 9.9 fL (7.4-10.4); MONO % 8.7 %; MONO ABS # 0.64 K/uL (0.11-0.59); NEUT % 65.3 %; NEUT ABS # 4.81 K/uL (1.4-6.5); PLATELET COUNT 162 K/uL (130-400); RED CELL DISTRIBUTION WIDTH CV 14.2 % (11.5-14.5); RED CELL DISTRIBUTION WIDTH SD 52.5 fL (36.4-46.3); WHITE BLOOD COUNT 7.37 K/uL (4.8-10.8)
[2017-09-19 22:04] LABS: ISTAT CREATININE 1.7 mg/dl (0.6-1.3); ISTAT IONIZED CALCIUM 1.09 mmol/l (1.12-1.32); ISTAT POTASSIUM 4.3 mEq/L (3.3-5.0)
[2017-09-19] MEDS ORDERED: ALUMINUM/MAGNESIUM SUSP 30 ML UDC PO STA (22:08)
[2017-09-19] MEDS ORDERED: LIDOCAINE HCL 2% VISC SOLN 20 ML UDC PO STA (22:08)
[2017-09-19] MEDS ORDERED: ALUMINUM/MAGNESIUM SUSP 30 ML UDC ONE (22:10)
[2017-09-19 22:14] LABS: ALBUMIN 3.5 gm/dl (3.4-5.0); CALCIUM 8.1 mg/dl (8.5-10.1); CREATININE 1.4 mg/dl (0.60-1.40); POTASSIUM 4.1 mmol/L (3.5-5.1)
[2017-09-19 22:17] LABS: PHOSPHORUS 2.7 mg/dl (2.5-4.9); TOTAL PROTEIN 7.3 gm/dl (6.4-8.2)
[2017-09-19 22:21] LABS: INR 0.9 (0.9-1.1); PTT PATIENT 21.9 SECONDS (21.0-31.0)
--- NOTE | 2017-09-19 22:32 | DIAGNOSTIC IMAGING REPORT ---
CT SCAN OF THE BRAIN WITHOUT IV CONTRAST CLINICAL HISTORY: Change in mental status. COMPARISON STUDY: CT of the brain dated 05/19/2013. TECHNIQUE: Unenhanced axial CT scan of the brain is performed from the vertex to the skull base. A dose lowering technique was utilized adhering to the principles of ALARA. CT DOSE: 965.19 mGycm FINDINGS: Brain parenchyma: The brain parenchyma is normal in appearance. There is no hemorrhage, mass effect, or evidence of acute territorial ischemia by CT criteria. Tavarez-white matter is preserved. No extra-axial fluid collection is seen. Ventricles, sulci, cisterns: Normal in configuration. Intracranial vasculature: There is atherosclerotic calcification of the cavernous carotid arteries. Calvarium: Unremarkable. Sinuses and mastoids: Trace mucosal thickening is seen in the left maxillary antrum and ethmoid sinuses. The remaining visualized paranasal sinuses are clear. The mastoid air cells are well pneumatized. Orbits: The bony orbits are grossly intact. IMPRESSION: There is no hemorrhage, mass effect, or evidence of acute territorial ischemia by CT criteria. Electronically signed by: Rusty Francois M.D. 09/19/2017 10:30 PM Dictated Date/Time: 09/19/2017 10:29 PM
[2017-09-19] MEDS ORDERED: CLOP1TAB15 PO (22:46)
[2017-09-19] MEDS ORDERED: NTRGSL/4 UT (22:46)
[2017-09-19] MEDS ORDERED: LISI40TA PO (22:46)
[2017-09-19] MEDS ORDERED: ESCI1TAB10 PO (22:46)
[2017-09-19] MEDS ORDERED: PRLSR20 PO (22:46)
[2017-09-19] MEDS ORDERED: TRAM-10 PO (22:46)
[2017-09-19] MEDS ORDERED: ATOR-24 PO (22:46)
[2017-09-19] MEDS ORDERED: ASPI81TA28 PO (22:46)
[2017-09-19] MEDS ORDERED: ISOS60TA25 PO (22:46)
[2017-09-19] MEDS ORDERED: FENTANYL CITRATE INJ 50 MCG/1 ML 2 ML VIAL IV STA (22:52)
[2017-09-19] MEDS ORDERED: THIA100T10 PO (23:02)
[2017-09-19] MEDS ORDERED: CARV25TA2 PO (23:02)
[2017-09-19] MEDS ORDERED: BOSWELLIA PO (23:02)
[2017-09-19] MEDS ORDERED: ESCI10TA17 PO (23:02)
[2017-09-19] MEDS ORDERED: ASCO-63 PO (23:02)
[2017-09-19] MEDS ORDERED: ARGI1CAP2 PO (23:02)
[2017-09-19] MEDS ORDERED: FLV400 PO (23:02)
[2017-09-19] MEDS ORDERED: GLUC10007 PO (23:02)
--- NOTE | 2017-09-19 23:02 | DIAGNOSTIC IMAGING REPORT ---
SINGLE VIEW CHEST CLINICAL HISTORY: Sepsis. FINDINGS: An AP, portable, upright chest radiograph is compared to study dated 04/27/2017. The examination is degraded by portable technique and patient rotation. The heart is enlarged and there is atherosclerotic calcification of the thoracic aorta. The pulmonary vasculature is noncongested. There are low lung volumes and bibasilar atelectasis. No airspace consolidation or large pleural effusion is identified. No pneumothorax is seen. The bony thorax is grossly intact. Arthritic change is noted in the shoulders. IMPRESSION: Cardiomegaly with no acute cardiopulmonary abnormality. Electronically signed by: Rusty Francois M.D. 09/19/2017 11:01 PM Dictated Date/Time: 09/19/2017 11:00 PM
--- NOTE | 2017-09-19 23:10 | DIAGNOSTIC IMAGING REPORT ---
CT SCAN OF THE ABDOMEN AND PELVIS WITH IV CONTRAST CLINICAL HISTORY: Generalized abdominal pain. COMPARISON STUDY: Abdominal CT dated 10/21/16 TECHNIQUE: Following the IV administration of 118 cc of Optiray 320, CT scan of the abdomen and pelvis is performed from the lung bases to the proximal femora. Images are reviewed in the axial, sagittal, and coronal planes. IV contrast was administered without complication. A dose lowering technique was utilized adhering to the principles of ALARA. CT DOSE: 941.80 mGycm FINDINGS: Lung bases: The heart is mildly enlarged and without pericardial effusion. The lung bases are clear noting dependent atelectasis. There is a small hiatal hernia. Liver: The contrast-enhanced liver is normal in size, contour, and attenuation. There is no intrahepatic biliary ductal dilatation. The hepatic veins and portal veins are patent. Gallbladder: Unremarkable. Spleen: Normal in size and attenuation. Pancreas: Unremarkable. Adrenal glands: Unremarkable. Kidneys: The contrast enhanced kidneys are normal in size and without hydronephrosis. The kidneys enhance symmetrically. Abdominal vasculature: The abdominal aorta is normal in course and caliber noting mild to moderate atherosclerotic calcification. Bowel: There is mild colonic diverticulosis without CT evidence of acute diverticulitis. Mild colonic wall thickening is suggested and there is faint pericolonic infiltration. The appearance suggests mild colitis. No bowel obstruction is seen. The appendix is well-visualized and normal. Peritoneum: There is no intraperitoneal free air or abdominal ascites. There is a small fat-containing umbilical hernia. Lymphadenopathy: None. Pelvic viscera: The bladder wall appears thickened the prostate gland demonstrates median lobe hypertrophy, and this is likely related to chronic outlet obstruction. This is unchanged from previous Skeletal structures: There is mild lumbosacral spondylosis and scoliosis. No lytic or blastic lesions are seen. IMPRESSION: 1. Question a mild nonspecific colitis. Clinical correlation will be required. 2. Cardiomegaly. 3. Mild colonic diverticulosis without CT evidence of acute diverticulitis. 4. Additional findings as above. Electronically signed by: Rusty Francois M.D. 09/19/2017 11:09 PM Dictated Date/Time: 09/19/2017 11:05 PM
[2017-09-20] VITALS (10 sets, daily range): BP systolic 128–169; BP diastolic 68–118; PULSE 70–89; TEMP 36.4–37.4; O2SAT 95–98; Ht 167.6 cm; Wt 103.2 kg
[2017-09-20] MEDS ORDERED: VANCOMYCIN HCL 125 MG/2.5ML SOLN PO STA (01:12)
--- NOTE | 2017-09-20 01:27 | EMERGENCY ROOM VISIT NOTE ---
History First contact with patient: 21:25 Chief Complaint: ABDOMINAL PAIN Stated Complaint: CHEST PAIN Nursing Triage Summary: states alcoholic. pt has been drinking heavy over last two weeks. states every time patient drinks heavily, pt gets cdiff. patient incontinent of stool in triage. feels very week and unable to answer questions History of Present Illness The patient is a 56 year old male who presents to the Emergency Room with complaints of increasing confusion, diffuse abdominal pain, diarrhea, alcoholism for the past 2 weeks that is steadily getting worse. Patient has a history of C. difficile. Symptoms are similar. He describes his pain as cramping, ranging in severity currently 9 out of 10. Nothing makes it better or worse. He's had C. difficile 4 times in the past. Patient's been drinking alcohol heavily for the past 2 weeks. He is a history of delusions in the past. No seizures. The has been giving him her Ativan to help out with the shakes. Patient denies fall, dyspnea, chest pain, vomiting, cough, congestion, recent illness, urinary symptoms. Patient had multiple episodes of diarrhea today and comes in covered in feces. After the patient was in the ER for about an hour he then started to complain of chest pain. Repeat EKG was unchanged. Symptoms did resolve. History is also obtained from the who states that he appears more confused than baseline and is having multiple episodes of diarrhea and appears in pain. His last drink was just prior to arrival. Review of Systems See HPI for pertinent positives & negatives. A total of 10 systems reviewed and were otherwise negative. Past Medical/Surgical History Medical Problems: (1) Alcohol dependence (2) Alcohol intoxication (3) C. difficile diarrhea (4) CAD (coronary artery disease) (5) Hepatitis C (6) History of GI bleed (7) HTN (hypertension) (8) Ischemic cardiomyopathy (9) Obesity (10) Renal artery stenosis Surgical Problems: (1) H/O esophagogastroduodenoscopy Family History Diabetes mellitus BROTHER Social History Smoking Status: Current Every Day Smoker Smokeless Tobacco Use: No Alcohol Use: heavy Marital Status: Housing Status: lives with significant other Occupation Status: employed Current/Historical Medications Scheduled Arginine (L-Arginine), 1 CAP PO BID Ascorbic Acid (Vitamin C), 500 MG PO BID Aspirin (Aspirin Ec), 81 MG PO DAILY Atorvastatin (Lipitor), 40 MG PO DAILY Carvedilol (Coreg), 1 TAB PO BID Carvedilol (Coreg), 1 TAB PO BID Clopidogrel (Plavix), 75 MG PO DAILY Escitalopram (Lexapro), 10 MG PO DAILY Folic Acid (Folic Acid), 400 MCG PO DAILY Glucosamine Sulfate (Glucosamine), 1 TAB PO BID Isosorbide Mononitrate Ext Rel (Imdur Ext Rel), 60 MG PO QAM Lisinopril (Zestril), 40 MG PO DAILY Nitroglycerin (Nitrostat), 0.4 MG UT PRN Omeprazole (Prilosec), 20 MG PO DAILY Thiamine Hcl (Vitamin B-1), 1 TAB PO DAILY [Boswellia], 800 MG PO DAILY Scheduled PRN Tramadol (Ultram), 100 MG PO BID PRN for Pain Physical Exam Vital Signs Date Time Temp Pulse Resp B/P (MAP) Pulse Ox O2 Delivery O2 Flow Rate FiO2 09/20/17 00:52 85 14 95 09/20/17 00:37 85 19 92 09/20/17 00:30 140/88 09/20/17 00:22 86 17 94 09/20/17 00:07 87 21 90 09/20/17 00:01 128/77 09/19/17 23:55 88/62 09/19/17 23:52 90 96 09/19/17 23:47 86 17 133/98 09/19/17 22:45 115/75 09/19/17 22:15 97/60 09/19/17 22:07 88 12 99 09/19/17 22:00 98/63 09/19/17 21:52 85 24 09/19/17 21:48 84 09/19/17 21:45 101/62 09/19/17 21:39 103/53 09/19/17 21:37 81 16 09/19/17 21:33 101/47 09/19/17 21:30 91/55 09/19/17 21:22 79 14 98 Room Air 09/19/17 21:11 36.4 92 24 98 Room Air Physical Exam VITALS: Vitals are noted on the nurse's note and reviewed by myself. Vital signs hypotensive. GENERAL: Ill-appearing male pale hypotensive and diaphoretic appearing in pain SKIN: The skin was without rashes, erythema, edema, or bruising. HEAD: Normocephalic atraumatic. EARS: External auditory canals clear, tympanic membranes pearly tavarez without erythema or effusion bilaterally. EYES: Pupils equal round and reactive to light and accommodation. Conjunctivae without injection, sclerae without icterus. Extraocular movements intact. NOSE: Patent, turbinates without inflammation or discharge. MOUTH: Mucous membranes dry. Pharynx without erythema or exudate. Uvula midline. Airway patent. Tongue does not deviate. NECK: Supple without nuchal rigidity. No lymphadenopathy. No thyromegaly. Cervical spine is nontender. No JVD. HEART: Regular rate and rhythm LUNGS: Clear to auscultation bilaterally without wheezes, rales or rhonchi. No dullness to percussion. No retractions or accessory muscle use. ABDOMEN: Positive bowel sounds x 4. Normal tympanic percussion. Soft, diffusely tender to palpation, no CVA tenderness, without masses or organomegaly. Ruelas sign negative. No guarding or rebound tenderness. MUSCULOSKELETAL: No muscle atrophy, erythema, or edema noted. 5 out of 5 strength throughout NEURO: Patient was alert and oriented to person place and time. Normal sensation to light and sharp touch. No focal neurological deficits. Medical Decision & Procedures Laboratory Results 09/19/17 21:25 Red Blood Count 4.17, Mean Corpuscular Volume 101.7, Mean Corpuscular Hemoglobin 35.3, Mean Corpuscular Hemoglobin Concent 34.7, Mean Platelet Volume 9.9, Neutrophils (%) (Auto) 65.3, Lymphocytes (%) (Auto) 22.5, Monocytes (%) ( Auto) 8.7, Eosinophils (%) (Auto) 2.7, Basophils (%) (Auto) 0.3, Neutrophils # ( Auto) 4.81, Lymphocytes # (Auto) 1.66, Monocytes # (Auto) 0.64, Eosinophils # ( Auto) 0.20, Basophils # (Auto) 0.02 09/19/17 21:25 Test 09/19/17 02:34 09/19/17 21:25 09/19/17 21:47 09/19/17 21:51 Urine Color YELLOW Urine Appearance CLEAR (CLEAR) Urine pH 7.5 (4.5-7.5) Urine Specific Weir > 1.045 (1.000-1.030) Urine Protein NEG (NEG) Urine Glucose (UA) NEG (NEG) Urine Ketones NEG (NEG) Urine Occult Blood TRACE (NEG) Urine Nitrite NEG (NEG) Urine Bilirubin NEG (NEG) Urine Urobilinogen NEG (NEG) Urine Leukocyte Esterase NEG (NEG) Urine WBC (Auto) 10-30 /hpf (0-5) Urine RBC (Auto) 0-4 /hpf (0-4) Urine Hyaline Casts (Auto) 1-5 /lpf (0-5) Urine Epithelial Cells (Auto) >30 /lpf (0-5) Urine Bacteria (Auto) NEG (NEG) Urine Renal Epithelial Cells /lpf (0-5) Urine Opiates Screen NEG (NEG) Urine Methadone, Qualitative NEG (NEG) Urine Barbiturates NEG (NEG) Urine Phencyclidine (PCP) Level NEG (NEG) Ur Amphetamine/Methamphetamine NEG (NEG) MDMA (Ecstasy) Screen NEG (NEG) Urine Benzodiazepines Screen NEG (NEG) Urine Cocaine Metabolite NEG (NEG) Urine Marijuana (THC) NEG (NEG) White Blood Count 7.37 K/uL (4.8-10.8) Red Blood Count 4.17 M/uL (4.7-6.1) Hemoglobin 14.7 g/dL (14.0-18.0) Hematocrit 42.4 % (42-52) Mean Corpuscular Volume 101.7 fL (80-100) Mean Corpuscular Hemoglobin 35.3 pg (25-34) Mean Corpuscular Hemoglobin Concent 34.7 g/dl (32-36) Platelet Count 162 K/uL (130-400) Mean Platelet Volume 9.9 fL (7.4-10.4) Neutrophils (%) (Auto) 65.3 % Lymphocytes (%) (Auto) 22.5 % Monocytes (%) (Auto) 8.7 % Eosinophils (%) (Auto) 2.7 % Basophils (%) (Auto) 0.3 % Neutrophils # (Auto) 4.81 K/uL (1.4-6.5) Lymphocytes # (Auto) 1.66 K/uL (1.2-3.4) Monocytes # (Auto) 0.64 K/uL (0.11-0.59) Eosinophils # (Auto) 0.20 K/uL (0-0.5) Basophils # (Auto) 0.02 K/uL (0-0.2) RDW Standard Deviation 52.5 fL (36.4-46.3) RDW Coefficient of Variation 14.2 % (11.5-14.5) Immature Granulocyte % (Auto) 0.5 % Immature Granulocyte # (Auto) 0.04 K/uL (0.00-0.02) Prothrombin Time 9.9 SECONDS (9.0-12.0) Prothromb Time International Ratio 0.9 (0.9-1.1) Activated Partial Thromboplast Time 21.9 SECONDS (21.0-31.0) Partial Thromboplastin Ratio 0.8 Est Creatinine Clear Calc Drug Dose 66.8 ml/min Estimated GFR () 65.6 Estimated GFR (Non- 56.6 BUN/Creatinine Ratio 9.6 (10-20) Calcium Level 8.1 mg/dl (8.5-10.1) Phosphorus Level 2.7 mg/dl (2.5-4.9) Magnesium Level 2.3 mg/dl (1.8-2.4) Total Bilirubin 0.2 mg/dl (0.2-1) Aspartate Amino Transf (AST/SGOT) 34 U/L (15-37) Alanine Aminotransferase (ALT/SGPT) 42 U/L (12-78) Alkaline Phosphatase 68 U/L (45-117) Total Protein 7.3 gm/dl (6.4-8.2) Albumin 3.5 gm/dl (3.4-5.0) Globulin 3.8 gm/dl (2.5-4.0) Albumin/Globulin Ratio 0.9 (0.9-2) Lipase 472 U/L (73-393) Bedside Hemoglobin 13.3 g/dl (14.0-18.0) Bedside Hematocrit 39 % (42-52) Bedside Sodium 143 mEq/L (135-144) Bedside Potassium 4.3 mEq/L (3.3-5.0) Bedside Chloride 106 mEq/L (101-112) Bedside Total CO2 23 mEq/l (24-31) Anion Gap 20.0 mmol/L (16-25) Bedside Blood Urea Nitrogen 13 mg/dl (7-18) Bedside Creatinine 1.7 mg/dl (0.6-1.3) Bedside Glucose (other) 136 mg/dl (70-99) Bedside Ionized Calcium (Nani) 1.09 mmol/l (1.12-1.32) Bedside Lactic Acid Venous 3.83 mmol/L (0.90-1.70) Test 09/19/17 21:56 09/19/17 21:57 Bedside Troponin I < 0.030 ng/ml (0-0.045) Ammonia 27.4 umol/L (11-32) Ethyl Alcohol mg/dL 183.3 mg/dl (0-3) Date/Time Source Procedure Growth Status 09/19/17 23:45 Stool C.difficile Toxin B Gene (PCR) - Final Positive for C. difficile toxin B gene Complete Medications Administered Medications (Trade) Dose Ordered Sig/Johnny Route Start Time Stop Time Status Last Admin Dose Admin Sodium Chloride 2,000 ml @ 999 mls/hr Q2H1M STAT IV 09/19/17 21:27 09/19/17 23:27 DC 09/19/17 21:27 999 MLS/HR Multivitamins 10 ml/Thiamine HCl 100 mg/Folic Acid 1 mg/Sodium Chloride 1,011.2 ml @ 125 mls/ hr Q8H6M ONCE IV 09/19/17 21:30 09/20/17 05:35 09/19/17 22:10 125 MLS/HR Lidocaine HCl (Viscous Lidocaine 2% Soln) 10 ml NOW STAT PO 09/19/17 22:08 09/19/17 22:09 DC 09/19/17 22:15 10 ML Al Hydroxide/Mg Hydroxide (Maalox Susp) 30 ml NOW STAT PO 09/19/17 22:08 09/19/17 22:09 DC 09/19/17 22:15 30 ML Fentanyl Citrate (Fentanyl Inj) 100 mcg NOW STAT IV 09/19/17 22:52 09/19/17 22:53 DC 09/19/17 23:38 100 MCG ED Course Prior records/ancillary studies reviewed and summarized above. Nursing notes reviewed. Additional history obtained from family. The patient's history was concerning for altered mental status who is an alcoholic, intoxicated with diarrhea and abdominal pain. Differential diagnosis: Etiologies such as metabolic, infection, hypoglycemia, electrolyte abnormalities , cardiac sources, intracerebral event, toxicologic, neurologic, as well as others were entertained. Physical examination: As above. ER treatment provided: IV Lock Normal saline hydration at 2 L bolus. Banana bag, vancomycin On reassessment the patients mental status improved. Diagnostics interpretation by me: ECG: Poor baseline, normal sinus, normal intervals, no acute ST-T wave changes. Impression normal sinus rhythm interpreted by myself. Repeat EKG is unchanged. The labs revealed elevated lactic acid. Elevated alcohol. Stable H&H. Negative troponin Positive C. difficile Imaging studies: ~ rep ct add3] CT SCAN OF THE ABDOMEN AND PELVIS WITH IV CONTRAST CLINICAL HISTORY: Generalized abdominal pain. COMPARISON STUDY: Abdominal CT dated 10/21/16 TECHNIQUE: Following the IV administration of 118 cc of Optiray 320, CT scan of the abdomen and pelvis is performed from the lung bases to the proximal femora. Images are reviewed in the axial, sagittal, and coronal planes. IV contrast was administered without complication. A dose lowering technique was utilized adhering to the principles of ALARA. CT DOSE: 941.80 mGycm FINDINGS: Lung bases: The heart is mildly enlarged and without pericardial effusion. The lung bases are clear noting dependent atelectasis. There is a small hiatal hernia. Liver: The contrast-enhanced liver is normal in size, contour, and attenuation. There is no intrahepatic biliary ductal dilatation. The hepatic veins and portal veins are patent. Gallbladder: Unremarkable. Spleen: Normal in size and attenuation. Pancreas: Unremarkable. Adrenal glands: Unremarkable. Kidneys: The contrast enhanced kidneys are normal in size and without hydronephrosis. The kidneys enhance symmetrically. Abdominal vasculature: The abdominal aorta is normal in course and caliber noting mild to moderate atherosclerotic calcification. Bowel: There is mild colonic diverticulosis without CT evidence of acute diverticulitis. Mild colonic wall thickening is suggested and there is faint pericolonic infiltration. The appearance suggests mild colitis. No bowel obstruction is seen. The appendix is well-visualized and normal. Peritoneum: There is no intraperitoneal free air or abdominal ascites. There is a small fat-containing umbilical hernia. Lymphadenopathy: None. Pelvic viscera: The bladder wall appears thickened the prostate gland demonstrates median lobe hypertrophy, and this is likely related to chronic outlet obstruction. This is unchanged from previous Skeletal structures: There is mild lumbosacral spondylosis and scoliosis. No lytic or blastic lesions are seen. IMPRESSION: 1. Question a mild nonspecific colitis. Clinical correlation will be required. 2. Cardiomegaly. 3. Mild colonic diverticulosis without CT evidence of acute diverticulitis. 4. Additional findings as above. Electronically signed by: Rusty Francois M.D. ~ rep ct add3] SINGLE VIEW CHEST CLINICAL HISTORY: Sepsis. FINDINGS: An AP, portable, upright chest radiograph is compared to study dated 04/27/2017. The examination is degraded by portable technique and patient rotation. The heart is enlarged and there is atherosclerotic calcification of the thoracic aorta. The pulmonary vasculature is noncongested. There are low lung volumes and bibasilar atelectasis. No airspace consolidation or large pleural effusion is identified. No pneumothorax is seen. The bony thorax is grossly intact. Arthritic change is noted in the shoulders. IMPRESSION: Cardiomegaly with no acute cardiopulmonary abnormality. CT SCAN OF THE BRAIN WITHOUT IV CONTRAST CLINICAL HISTORY: Change in mental status. COMPARISON STUDY: CT of the brain dated 05/19/2013. TECHNIQUE: Unenhanced axial CT scan of the brain is performed from the vertex to the skull base. A dose lowering technique was utilized adhering to the principles of ALARA. CT DOSE: 965.19 mGycm FINDINGS: Brain parenchyma: The brain parenchyma is normal in appearance. There is no hemorrhage, mass effect, or evidence of acute territorial ischemia by CT criteria. Tavarez-white matter is preserved. No extra-axial fluid collection is seen. Ventricles, sulci, cisterns: Normal in configuration. Intracranial vasculature: There is atherosclerotic calcification of the cavernous carotid arteries. Calvarium: Unremarkable. Sinuses and mastoids: Trace mucosal thickening is seen in the left maxillary antrum and ethmoid sinuses. The remaining visualized paranasal sinuses are clear. The mastoid air cells are well pneumatized. Orbits: The bony orbits are grossly intact. IMPRESSION: There is no hemorrhage, mass effect, or evidence of acute territorial ischemia by CT criteria. Electronically signed by: Rusty Francois M.D. Given the above diagnostic work-up and treatment, this episode appears to be consistent with hypotension that has improved after hydration as above, C. difficile colitis and alcoholism. Further treatment will be required. Patient had great improvement after being medicated and hydrated as above. His initial blood pressure was 70/40. He is now normotensive. He is alert and answering questions appropriately. He is not complaining any signs and symptoms of withdrawal. He did develop chest pain while in the ER and repeat EKG was ordered and this was unchanged. His lipase is marginally elevated. No CT evidence of pancreatitis. He will be evaluated by medicine for admission. He was reassessed multiple times. Consultation: A consultation was placed with Dr. Gilbert Hospitalist. The case was discussed and diagnostics were reviewed. The patient was evaluated in the ER for further treatment. Case reviewed by attending The chart was completed utilizing [employer] Speech voice recognition software. Grammatical errors, random word insertions, pronoun errors, and incomplete sentences are an occassional consequence of this system due to software limitations, ambient noise, and hardware issues. Any formal questions or concerns about the content, text, or information contained within the body of this dictation should be directly addressed to the physician medical practice assistant for clarification. Medical Decision As above Medication Reconcilliation Current Medication List: was personally reviewed by me Blood Pressure Screening Patient's blood pressure: Low blood pressure Impression Primary Impression: C. difficile colitis Additional Impressions: Hypotension Dehydration Chest pain Alcohol dependence Departure Information Dispostion Being Evaluated By Hospitalist Condition FAIR Referrals Dm Rachel M.D. (PCP) Patient Instructions [facility] Problem Qualifiers
[2017-09-20] MEDS ORDERED: MULTI-VITAMIN INFUSION INJ 10 ML, THIAMINE HCL INJ 100 MG, FoLIC ACID INJ 1 MG in SODIU... IV ONE (01:39)
[2017-09-20] MEDS ORDERED: LORAZEPAM 2 MG/ML 1 ML VIAL IV PRN (01:45)
[2017-09-20] MEDS ORDERED: CHLORDIAZEPOXIDE 25 MG CAP PO SCH (01:45)
[2017-09-20] MEDS ORDERED: TRAMADOL HCL 50 MG TAB PO PRN (02:00)
[2017-09-20] MEDS ORDERED: ACETAMINOPHEN 325 MG TAB PO PRN (02:15)
--- NOTE | 2017-09-20 02:30 | NUR ---
A: Pt arrived to room N279 via litter from the ED. Report received from Mateo MANDEL. Pt is A&Ox4 and is OOB with supervision in the room. Pt admitted with C. Diff infection. Pt also under supervision for alcohol withdrawal. Pt states that he drank 20 beers 09/19/16 and that his last drink was at 1700 09/19/16. Pt stated he was beginning to go through withdrawal. Pt presents with severe tremors, sweating and an increase in respirations at this time. Pt scored a [address] the AWSS scale. Dr. Perea made aware of score. See eMAR for intervention. Vitals WNL. No edema noted. Pt currently has a multi vit. bag infusing at 125mL/hr into his left AC. Pt oriented to his surrounding and verbalized understanding. Pt is a moderate fall risk. Call robertson within reach, pt encouraged to ring and bed alarm in use. Pt placed on monitor and presents with sinus rhythm. Fall precaution and code word paperwork signed and placed in pts chart. Assessment completed see EMR.
[2017-09-20] MEDS ORDERED: LORAZEPAM INJ 0.5 MG in SYRINGE 0.75 ML IV PRN (03:00)
[2017-09-20] MEDS ORDERED: LIDODERM (LIDOCAINE) PATCH 5% TD ONE (03:00)
[2017-09-20 03:41] LABS: CKMB 4.2 ng/ml (0.5-3.6)
[2017-09-20] MEDS: CHLORDIAZEPOXIDE 50MG 1ST DOSE PO SCH ×4 (03:49→22:04)
--- NOTE | 2017-09-20 04:00 | NUR ---
A: Assessment completed see EMR. Pt is resting at this time with no complaints. Vitals WNL. Pt presents with sinus rhythm on the monitor. Call robertson within reach, pt encouraged to ring and bed alarm in use.
[2017-09-20] MEDS ORDERED: IV FLUIDS COMPLETED PRN (05:00)
[2017-09-20] MEDS: THIAMINE HCL 100 MG TAB PO SCH (05:40)
[2017-09-20] MEDS: NICOTINE 14 MG/24 HR TDSY TD SCH (06:00)
[2017-09-20] MEDS: LORAZEPAM 2 MG/ML 1 ML VIAL IV PRN ×8 (06:16→23:57)
[2017-09-20] MEDS: VANCOMYCIN HCL 125 MG/2.5ML SOLN PO SCH ×3 (06:16→17:36)
--- NOTE | 2017-09-20 06:29 | DIAGNOSTIC IMAGING REPORT ---
R RIBS UNILATERAL 4 VIEWS CLINICAL HISTORY: Right rib pain COMPARISON STUDY: Chest x-ray dated 09/19/2017 FINDINGS: No pneumothorax is visualized. No right-sided rib fractures are evident. Faint collecting system opacification is visualized within the right kidney IMPRESSION: No right-sided rib fractures identified. Electronically signed by: Catalino Cuevas M.D. 09/20/2017 6:28 AM Dictated Date/Time: 09/20/2017 6:27 AM
[2017-09-20] MEDS: SODIUM CHLORIDE 0.9% 1000ML 1,000 ML IV SCH ×3 (07:13→17:37)
--- NOTE | 2017-09-20 08:05 | NUR ---
A: Pt. transferred to 236 at this time. Previous RN called report to receiving RN. All belongings including medications, cell phone and 2 bags of clothing with pt. Monitor for 279 returned to monitor clerks.
--- NOTE | 2017-09-20 08:30 | NUR ---
Patient recieved into room 236-1. Patient stated he was very anxious. Alcohol withdrawl scale=4. Protocol followed. VS stable. Will continue to monitor.
--- NOTE | 2017-09-20 08:59 | History and Physical ---
History & Physical Date & Time of Service: Sep 20, 2017 at 08:41 Chief Complaint: C. Difficile Diarrhea Primary Care Physician: Dm Rachel M.D. History of Present Illness Source: patient, clinic records, hospital records 56 year old male with history of Alcoholism, Smoking, CAD, HTN and other problems noted below presenting with syncope. Patient follows with Dr. aRchel for PCP. He states that he drinks everyday but since 3-4 days ago has been drinking about 20 beers/day because he is getting more depressed. He denies suicidal ideations. For the past week or so, patient has also been having diarrhea >5x a day, non bloody associated with abdominal cramps. Today, patient states he was walking in the basement, got dizzy, passed out and was found by his on the floor. He was then brought to the ER. At the ER, BP was 91/55, HR 92, afebrile. ETOH was 183. CT head: no acute findings. CT abdomen: non specific colitis. C diff stool: (+) Positive He was given IV fluid boluses and BP gradually improved. On exam, patient seen resting in bed, not in distress, feels improved compared to admission. Reports mild abdominal discomfort. Also reports right sided chest pain, after he fell. No other symptoms. Past Medical/Surgical History Medical Problems: (1) Alcohol dependence Status: Chronic (2) C. difficile diarrhea Status: Chronic (3) CAD (coronary artery disease) Permanent Comment: 03/29/2017 - anterior STEMI, s/p JEFFREY to LAD Status: Chronic (4) Hepatitis C Status: Chronic (5) History of GI bleed Permanent Comment: secondary to esophageal ulceration on EGD 11/29/2013 Status: Chronic (6) HTN (hypertension) Status: Chronic (7) Ischemic cardiomyopathy Permanent Comment: EF 30-35% Status: Chronic (8) Obesity Status: Chronic (9) Renal artery stenosis Permanent Comment: questionable Status: Chronic Surgical Problems: (1) H/O esophagogastroduodenoscopy Permanent Comment: 11/29/2013- Large lower esophageal ulceration. No bleeding. Portal hypertensive gastropathy. Erythematous duodenopathy. Normal 2nd part of the duodenum. Status: Chronic Family History Diabetes mellitus BROTHER Social History Smoking Status: Current Every Day Smoker Smokeless Tobacco Use: No Marital Status: Occupational Status: employed Immunizations History of Influenza Vaccine: Yes Influenza Vaccine Date: Aug 03, 2013 History of Tetanus Vaccine?: Yes Tetanus Immunization Date: Sep 20, 2003 History of Hepatitis B Vaccine: Yes Hepatitis Immunization Date: January 22, 2011 Multi-Drug Resistant Organisms History of MDRO: No Allergies Coded Allergies: No Known Allergies (Unverified , 05/28/16) Home Medications Scheduled Arginine (L-Arginine), 1 CAP PO BID Ascorbic Acid (Vitamin C), 500 MG PO BID Aspirin (Aspirin Ec), 81 MG PO DAILY Atorvastatin (Lipitor), 40 MG PO DAILY Carvedilol (Coreg), 1 TAB PO BID Carvedilol (Coreg), 1 TAB PO BID Clopidogrel (Plavix), 75 MG PO DAILY Escitalopram (Lexapro), 10 MG PO DAILY Folic Acid (Folic Acid), 400 MCG PO DAILY Glucosamine Sulfate (Glucosamine), 1 TAB PO BID Isosorbide Mononitrate Ext Rel (Imdur Ext Rel), 60 MG PO QAM Lisinopril (Zestril), 40 MG PO DAILY Nitroglycerin (Nitrostat), 0.4 MG UT PRN Omeprazole (Prilosec), 20 MG PO DAILY Thiamine Hcl (Vitamin B-1), 1 TAB PO DAILY [Boswellia], 800 MG PO DAILY Scheduled PRN Tramadol (Ultram), 100 MG PO BID PRN for Pain Review of Systems Constitutional- no fever; no weight loss Eyes- no acute visual changes ENT- no sinus drainage; no pharyngitis Pulmonary- no cough, no wheezing, no shortness of breath Cardiac- (+) chest pain, no palpitations, no orthopnea, no dependent edema GI- (+) as above - no dysuria, no hematuria Musculoskeletal- no arthralgias, no myalgias Derm- no rashes, no new skin lesions, no changing skin lesions Hematologic- no unusual bruising, no unusual bleeding Lymphatics- no adenopathy Endocrine- no polyuria or polydipsia; no heat or cold intolerance Neuro- no headaches, no focal neurologic symptoms Psych- no anxiety, (+) depression- no suicidal ideations Physical Exam Vital Signs Date Time Temp Pulse Resp B/P (MAP) Pulse Ox O2 Delivery O2 Flow Rate FiO2 09/20/17 08:00 36.8 74 24 159/95 (116) 98 Room Air 09/20/17 05:40 36.8 88 24 140/88 (105) 98 09/20/17 04:15 36.8 79 24 144/89 (107) 95 Room Air 09/20/17 04:00 Room Air 09/20/17 02:45 24 09/20/17 02:32 36.7 89 20 128/86 (100) 95 Room Air 09/20/17 02:30 95 Room Air 09/20/17 02:30 95 Room Air 09/20/17 01:42 84 17 95 09/20/17 01:31 146/93 09/20/17 01:27 83 19 94 09/20/17 01:12 84 20 97 09/20/17 01:09 88 09/20/17 01:00 155/91 09/20/17 00:57 85 17 95 09/20/17 00:52 85 14 95 09/20/17 00:37 85 19 92 09/20/17 00:30 140/88 09/20/17 00:22 86 17 94 09/20/17 00:07 87 21 90 09/20/17 00:01 128/77 09/19/17 23:55 88/62 09/19/17 23:52 90 96 09/19/17 23:47 86 17 133/98 09/19/17 22:45 115/75 09/19/17 22:15 97/60 09/19/17 22:07 88 12 99 09/19/17 22:00 98/63 09/19/17 21:52 85 24 09/19/17 21:48 84 09/19/17 21:45 101/62 09/19/17 21:39 103/53 09/19/17 21:37 81 16 09/19/17 21:33 101/47 09/19/17 21:30 91/55 09/19/17 21:22 79 14 98 Room Air 09/19/17 21:11 36.4 92 24 98 Room Air General Appearance: WD/WN, no apparent distress Head: normocephalic, atraumatic Eyes: normal inspection, PERRL, EOMI, sclerae normal ENT: normal ENT inspection, hearing grossly normal, pharynx normal Neck: supple, no adenopathy, thyroid normal, no JVD, trachea midline Respiratory/Chest: lungs clear, normal breath sounds, no respiratory distress, no accessory muscle use, + pertinent finding ((+) tenderness on the right chest wall) Cardiovascular: regular rate, rhythm, no edema, no JVD, no murmur Abdomen/GI: normal bowel sounds, soft, + pertinent finding (moderate tenderness on all quadrants) Back: normal inspection, no CVA tenderness Extremities/Musculoskelatal: normal inspection, no calf tenderness, no pedal edema, normal range of motion, pelvis stable Neurologic/Psych: scholarship counselor II-XII nml as tested, no motor/sensory deficits, alert, normal reflexes, oriented x 3 Skin: normal color, warm/dry, no rash Lymphatic: no adenopathy Diagnostics Laboratory Results Results Past 24 Hours Test 09/19/17 21:25 09/19/17 21:47 09/19/17 21:51 09/19/17 21:56 Range/Units White Blood Count 7.37 4.8-10.8 K/uL Red Blood Count 4.17 4.7-6.1 M/uL Hemoglobin 14.7 14.0-18.0 g/dL Hematocrit 42.4 42-52 % Mean Corpuscular Volume 101.7 80-100 fL Mean Corpuscular Hemoglobin 35.3 25-34 pg Mean Corpuscular Hemoglobin Concent 34.7 32-36 g/dl Platelet Count 162 130-400 K/uL Mean Platelet Volume 9.9 7.4-10.4 fL Neutrophils (%) (Auto) 65.3 % Lymphocytes (%) (Auto) 22.5 % Monocytes (%) (Auto) 8.7 % Eosinophils (%) (Auto) 2.7 % Basophils (%) (Auto) 0.3 % Neutrophils # (Auto) 4.81 1.4-6.5 K/uL Lymphocytes # (Auto) 1.66 1.2-3.4 K/uL Monocytes # (Auto) 0.64 0.11-0.59 K/uL Eosinophils # (Auto) 0.20 0-0.5 K/uL Basophils # (Auto) 0.02 0-0.2 K/uL RDW Standard Deviation 52.5 36.4-46.3 fL RDW Coefficient of Variation 14.2 11.5-14.5 % Immature Granulocyte % (Auto) 0.5 % Immature Granulocyte # (Auto) 0.04 0.00-0.02 K/uL Prothrombin Time 9.9 9.0-12.0 SECONDS Prothromb Time International Ratio 0.9 0.9-1.1 Activated Partial Thromboplast Time 21.9 21.0-31.0 SECONDS Partial Thromboplastin Ratio 0.8 Sodium Level 142 136-145 mmol/L Potassium Level 4.1 3.5-5.1 mmol/L Chloride Level 108 98-107 mmol/L Carbon Dioxide Level 27 21-32 mmol/L Anion Gap 7.0 20.0 16-25 mmol/L Blood Urea Nitrogen 14 7-18 mg/dl Creatinine 1.40 0.60-1.40 mg/dl Est Creatinine Clear Calc Drug Dose 66.8 ml/min Estimated GFR () 65.6 Estimated GFR (Non- 56.6 BUN/Creatinine Ratio 9.6 10-20 Random Glucose 149 70-99 mg/dl Calcium Level 8.1 8.5-10.1 mg/dl Phosphorus Level 2.7 2.5-4.9 mg/dl Magnesium Level 2.3 1.8-2.4 mg/dl Total Bilirubin 0.2 0.2-1 mg/dl Aspartate Amino Transf (AST/SGOT) 34 15-37 U/L Alanine Aminotransferase (ALT/SGPT) 42 12-78 U/L Alkaline Phosphatase 68 45-117 U/L Total Protein 7.3 6.4-8.2 gm/dl Albumin 3.5 3.4-5.0 gm/dl Globulin 3.8 2.5-4.0 gm/dl Albumin/Globulin Ratio 0.9 0.9-2 Lipase 472 73-393 U/L Bedside Hemoglobin 13.3 14.0-18.0 g/dl Bedside Hematocrit 39 42-52 % Bedside Sodium 143 135-144 mEq/L Bedside Potassium 4.3 3.3-5.0 mEq/L Bedside Chloride 106 101-112 mEq/L Bedside Total CO2 23 24-31 mEq/l Bedside Blood Urea Nitrogen 13 7-18 mg/dl Bedside Creatinine 1.7 0.6-1.3 mg/dl Bedside Glucose (other) 136 70-99 mg/dl Bedside Ionized Calcium (Nani) 1.09 1.12-1.32 mmol/l Bedside Lactic Acid Venous 3.83 0.90-1.70 mmol/L Bedside Troponin I < 0.030 0-0.045 ng/ml Test 09/19/17 21:57 09/20/17 03:07 Range/Units Ammonia 27.4 11-32 umol/L Ethyl Alcohol mg/dL 183.3 0-3 mg/dl Lactic Acid Level 1.5 0.4-2.0 mmol/L Ionized Calcium 1.02 1.12-1.32 mmol/l Total Creatine Kinase 175 39-308 U/L Creatine Kinase MB 4.2 0.5-3.6 ng/ml Creatine Kinase MB Ratio 2.4 0-3.0 Troponin I 0.024 0-0.045 ng/ml Microbiology Results 09/19/17 Blood Culture, Received Pending 09/19/17 Blood Culture, Received Pending 09/19/17 C.difficile Toxin B Gene (PCR) - Final, Complete Positive for C. difficile toxin B gene 09/19/17 Shiga Toxin Test, Received Pending 09/19/17 Stool Culture, Received Pending Diagnostic Radiology as per H&P EKG hr 86, sinus rhythm, no signs of acute ischemia Impression Assessment and Plan 56 year old male with history of Alcoholism, Smoking, CAD, HTN and other problems noted below presenting with syncope. C. DIFF COLITIS, RECURRENCE - patient has had 3 episodes of C diff colitis in the past - Vancomycin PO ordered, will need tapered doses ID consulted SYNCOPE LIKELY SECONDARY TO: HYPOTENSION - likely from dehydration secondary to diarrhea IV NSS ALCOHOL INTOXICATION - drinks 20 beers a day for the past 3 days - Alcohol Withdrawal Protocol including Librium and PRN Ativan monitor in Tele CHEST PAIN R/O RIB FRACTURE s/p FALL FROM SYNCOPE - check rib xray Tramadol and Lidoderm Patch - check cardiac markers, echo ELEVATED LACTIC ACID - monitor levels MILD HYPOCALCEMIA - likely from Diarrhea - PO Ca ordered monitor SMOKER - nicotine patch PROLONGED QT - HOLD Lexapro - repeat EKG in AM CAD - continue Carvedilol hold Lisinopril until BP stable continue Imdur - hold Atorvastatin until GI symptoms improves - continue ASA, Plavix DEPRESSION - admits worsening of symptoms denies suicidal ideations DVT PROPHYLAXIS SCDs for now FULL CODE PER PATIENT DISPOSITION pending lives with at home needs PT/OT ff up with Dr. Wilson Perea MD Advanced Directives Existing Living Will: No Existing Power of Railcar Mechanic: No VTE Prophylaxis VTE Risk Assessment Done? Y/N: Yes Risk Level: Moderate Given or contraindicated: SCD's
[2017-09-20] MEDS ORDERED: CARVEDILOL 12.5 MG TAB PO SCH (09:00)
--- NOTE | 2017-09-20 09:00 | NUR ---
ID: Patient resting in bed. Patient is alert and oriented x4, but restless and is states he is anxious. Alcohol withdraw scale=4. IV Ativan given for anxiety. Will continue to monitor neuro status closely. Lungs are clear on room air. Nicotine patch intact on right upper arm. Patient SR in the 70s on monitor. BP stable. Left AC IV patent, infusing NSS @125. Left AC IV flushed and patent. VSS. Patient denies any needs at this time. Will continue to monitor.
[2017-09-20] MEDS: ISOSORBIDE MONONITRATE 60 MG TABCR PO SCH (09:03)
[2017-09-20] MEDS: PANTOprazole SOD 40 MG TAB PO SCH (09:03)
[2017-09-20] MEDS: CLOPIDOGREL BISULFATE 75 MG TAB PO SCH (09:03)
[2017-09-20] MEDS: ASPIRIN 81 MG ECTAB PO SCH (09:03)
[2017-09-20] MEDS: FoLIC ACID TAB 400 MCG TAB PO SCH (09:03)
[2017-09-20] MEDS: CALCIUM CARBONATE 1250MG TAB PO SCH ×2 (09:12→22:10)
--- NOTE | 2017-09-20 10:04 | Medical Consult ---
Consultation Date of Consultation: Sep 20, 2017. Attending Physician: Gordo Flores M.D. Reason for Consultation: Recurrent C difficile infection History of Present Illness 56-year-old male with long history of alcohol abuse, hypertension, coronary artery disease sees status post recent [place], admission earlier this year for alcohol withdrawal, recurrent C difficile infection, now admitted after syncopal episode. Apparently patient has been drinking heavily, and has developed worsening diarrhea over the last several days with probable decrease in fluid intake. On arrival in the emergency room he was found to be somewhat hypotensive and was given fluid resuscitation with improvement. C difficile PCR is positive. Patient currently being treated with oral vancomycin therapy. Has had abdominal pain but denies fever chills. No evidence of bleeding. Has had abdominal CT scan, read by me, which shows evidence of mild colitis. Past Medical/Surgical History Medical Problems: (1) Abdominal pain Status: Acute (2) Abnormal cardiac enzyme level Status: Acute (3) Acute gastroenteritis Status: Acute (4) Alcohol dependence Status: Chronic (5) Alcohol withdrawal Status: Acute (6) Alcohol withdrawal Status: Acute (7) C. difficile colitis Status: Acute (8) Chest pain Status: Acute (9) Colitis Status: Acute (10) Dehydration Status: Acute (11) Dehydration Status: Acute (12) Dehydration Status: Acute (13) Diarrhea Status: Acute (14) Diffuse abdominal pain Status: Acute (15) Failure of outpatient treatment Status: Acute (16) Hypotension Status: Acute (17) Mood disorder Status: Acute (18) STEMI (ST elevation myocardial infarction) Status: Acute (19) Transaminitis Status: Acute Medical Problems: (1) Alcohol dependence (2) Alcohol intoxication (3) C. difficile diarrhea (4) CAD (coronary artery disease) (5) Hepatitis C (6) History of GI bleed (7) HTN (hypertension) (8) Ischemic cardiomyopathy (9) Obesity (10) Renal artery stenosis Surgical Problems: (1) H/O esophagogastroduodenoscopy Family History Diabetes mellitus BROTHER Social History Smoking Status: Current Every Day Smoker Smokeless Tobacco Use: No Marital Status: Housing Status: lives with significant other Occupation Status: employed Allergies Coded Allergies: No Known Allergies (Unverified , 05/28/16) Current Inpatient Medications Current Inpatient Medications Medications (Trade) Dose Ordered Sig/Johnny Route Start Time Stop Time Status Last Admin Dose Admin Ioversol (Optiray 320) 100 ml UD PRN IV 09/19/17 21:45 09/23/17 21:44 Vancomycin HCl (Vancomycin Oral Soln) 125 mg Taper Q6H PO 09/20/17 06:00 11/01/17 05:59 09/20/17 06:16 125 MG Sodium Chloride 1,000 ml @ 125 mls/hr Q8H IV 09/20/17 03:00 10/20/17 02:59 09/20/17 07:13 125 MLS/HR Thiamine HCl (Vitamin B-1 Tab) 100 mg DAILY PO 09/20/17 03:30 10/20/17 03:29 09/20/17 05:40 100 MG Lorazepam (Ativan Inj) 0.5 mg Q4H PRN IV 09/20/17 01:45 10/20/17 01:44 09/20/17 08:44 0.5 MG Nicotine (Nicoderm Cq 14MG Patch) 1 patch QAM TD 09/20/17 09:00 10/20/17 08:59 09/20/17 06:00 1 PATCH Miscellaneous (Remove Nicoderm Patch) 1 ea HS N/A 09/20/17 21:00 10/20/17 20:59 Tramadol HCl (Ultram Tab) 50 mg Q6H PRN PO 09/20/17 02:00 10/20/17 01:59 Lidocaine (Lidoderm Patch 5%) 1 patch QAM TD 09/21/17 09:00 10/21/17 08:59 Miscellaneous (Remove Lidoderm Patch) 1 ea DAILY@21 N/A 09/20/17 15:00 10/20/17 14:59 Aspirin (Ecotrin Tab) 81 mg DAILY PO 09/20/17 09:00 10/20/17 08:59 09/20/17 09:03 81 MG Carvedilol (Coreg Tab) 12.5 mg BID PO 09/20/17 09:00 10/20/17 08:59 09/20/17 09:03 12.5 MG Clopidogrel Bisulfate (plAVix TAB) 75 mg DAILY PO 09/20/17 09:00 10/20/17 08:59 09/20/17 09:03 75 MG Folic Acid (Folvite Tab) 400 mcg DAILY PO 09/20/17 09:00 10/20/17 08:59 09/20/17 09:03 400 MCG Isosorbide Mononitrate (Imdur Ext Rel Tab) 60 mg QAM PO 09/20/17 09:00 10/20/17 08:59 09/20/17 09:03 60 MG Pantoprazole Sodium (Protonix Tab) 40 mg DAILY PO 09/20/17 09:00 10/20/17 08:59 09/20/17 09:03 40 MG Acetaminophen (Tylenol Tab) 650 mg Q4H PRN PO 09/20/17 02:15 10/20/17 02:14 Lorazepam 0.5 mg/ Syringe 1 ml @ 1 mls/min Q4H PRN IV 09/20/17 03:00 10/20/17 02:59 09/20/17 05:39 1 MLS/MIN Chlordiazepoxide (Librium Cap) 50 mg Q6H PO 09/20/17 03:30 09/20/17 21:31 09/20/17 09:07 50 MG Chlordiazepoxide (Librium Cap) 50 mg Q8H PO 09/21/17 06:00 09/21/17 22:01 Chlordiazepoxide (Librium Cap) 25 mg Q8H PO 09/22/17 06:00 09/22/17 22:01 Chlordiazepoxide (Librium Cap) 10 mg Q12H PO 09/23/17 10:00 09/23/17 22:01 Miscellaneous (Iv Fluids Completed) 1 ea PRN PRN N/A 09/20/17 05:00 09/20/18 04:59 Lorazepam (Ativan Inj) PRN Dosing -Active Protocol Q1H PRN IV 09/20/17 06:00 10/20/17 05:59 09/20/17 06:16 2 MG Calcium Carbonate (oS-Satnam 500 TAB) 1,250 mg BID PO 09/20/17 09:00 10/20/17 08:59 09/20/17 09:12 1,250 MG Review of Systems Constitutional: + weakness, No fever, No chills Eyes: No diplopia ENT: No problem reported Respiratory: No problem reported Abdomen: + pain, + diarrhea, No GI bleeding Musculoskeletal: No problem reported Genitourinary - Male: No problem reported Neurologic: + weakness Psychiatric: + depression symptoms Endocrine: No problem reported Hematologic / Lymphatic: No problem reported Integumentary: No problem reported Allergic / Immunologic: No problem reported Physical Exam Date Time Temp Pulse Resp B/P (MAP) Pulse Ox O2 Delivery O2 Flow Rate FiO2 09/20/17 08:30 98 Room Air 09/20/17 08:30 36.8 74 24 159/95 (116) 98 Room Air 09/20/17 08:00 36.8 74 24 159/95 (116) 98 Room Air 09/20/17 05:40 36.8 88 24 140/88 (105) 98 09/20/17 04:15 36.8 79 24 144/89 (107) 95 Room Air 09/20/17 04:00 Room Air 09/20/17 02:45 24 09/20/17 02:32 36.7 89 20 128/86 (100) 95 Room Air 09/20/17 02:30 95 Room Air 09/20/17 02:30 95 Room Air 09/20/17 01:42 84 17 95 09/20/17 01:31 146/93 09/20/17 01:27 83 19 94 09/20/17 01:12 84 20 97 09/20/17 01:09 88 09/20/17 01:00 155/91 09/20/17 00:57 85 17 95 09/20/17 00:52 85 14 95 09/20/17 00:37 85 19 92 09/20/17 00:30 140/88 09/20/17 00:22 86 17 94 09/20/17 00:07 87 21 90 09/20/17 00:01 128/77 09/19/17 23:55 88/62 09/19/17 23:52 90 96 09/19/17 23:47 86 17 133/98 09/19/17 22:45 115/75 09/19/17 22:15 97/60 09/19/17 22:07 88 12 99 09/19/17 22:00 98/63 09/19/17 21:52 85 24 09/19/17 21:48 84 09/19/17 21:45 101/62 09/19/17 21:39 103/53 09/19/17 21:37 81 16 09/19/17 21:33 101/47 09/19/17 21:30 91/55 09/19/17 21:22 79 14 98 Room Air 09/19/17 21:11 36.4 92 24 98 Room Air General Appearance: WD/WN, no apparent distress, + obese Head: normocephalic, atraumatic Eyes: normal inspection, EOMI, sclerae normal ENT: normal ENT inspection, pharynx normal Neck: supple, no adenopathy, trachea midline Respiratory/Chest: chest non-tender, lungs clear, normal breath sounds, no respiratory distress Cardiovascular: regular rate, rhythm, no gallop, no murmur Abdomen/GI: normal bowel sounds, soft, no organomegaly, + tenderness Back: normal inspection, no CVA tenderness Extremities/Musculoskelatal: no calf tenderness, normal capillary refill, non- tender Neurologic/Psych: alert, oriented x 3 Skin: normal color, warm/dry, no rash Lymphatic: no adenopathy Laboratory Results Date/Time Source Procedure Growth Status 09/19/17 23:26 Blood Blood Culture Pending Received 09/19/17 21:28 Blood Blood Culture Pending Received 09/19/17 23:45 Stool C.difficile Toxin B Gene (PCR) - Final Positive for C. difficile toxin B gene Complete 09/19/17 23:45 Stool Shiga Toxin Test Pending Received 09/19/17 23:45 Stool Stool Culture Pending Received Last 24 Hours Test 09/19/17 21:25 09/19/17 21:47 09/19/17 21:51 09/19/17 21:56 White Blood Count 7.37 K/uL Red Blood Count 4.17 M/uL Hemoglobin 14.7 g/dL Hematocrit 42.4 % Mean Corpuscular Volume 101.7 fL Mean Corpuscular Hemoglobin 35.3 pg Mean Corpuscular Hemoglobin Concent 34.7 g/dl Platelet Count 162 K/uL Mean Platelet Volume 9.9 fL Neutrophils (%) (Auto) 65.3 % Lymphocytes (%) (Auto) 22.5 % Monocytes (%) (Auto) 8.7 % Eosinophils (%) (Auto) 2.7 % Basophils (%) (Auto) 0.3 % Neutrophils # (Auto) 4.81 K/uL Lymphocytes # (Auto) 1.66 K/uL Monocytes # (Auto) 0.64 K/uL Eosinophils # (Auto) 0.20 K/uL Basophils # (Auto) 0.02 K/uL RDW Standard Deviation 52.5 fL RDW Coefficient of Variation 14.2 % Immature Granulocyte % (Auto) 0.5 % Immature Granulocyte # (Auto) 0.04 K/uL Prothrombin Time 9.9 SECONDS Prothromb Time International Ratio 0.9 Activated Partial Thromboplast Time 21.9 SECONDS Partial Thromboplastin Ratio 0.8 Sodium Level 142 mmol/L Potassium Level 4.1 mmol/L Chloride Level 108 mmol/L Carbon Dioxide Level 27 mmol/L Anion Gap 7.0 mmol/L 20.0 mmol/L Blood Urea Nitrogen 14 mg/dl Creatinine 1.40 mg/dl Est Creatinine Clear Calc Drug Dose 66.8 ml/min Estimated GFR () 65.6 Estimated GFR (Non- 56.6 BUN/Creatinine Ratio 9.6 Random Glucose 149 mg/dl Calcium Level 8.1 mg/dl Phosphorus Level 2.7 mg/dl Magnesium Level 2.3 mg/dl Total Bilirubin 0.2 mg/dl Aspartate Amino Transf (AST/SGOT) 34 U/L Alanine Aminotransferase (ALT/SGPT) 42 U/L Alkaline Phosphatase 68 U/L Total Protein 7.3 gm/dl Albumin 3.5 gm/dl Globulin 3.8 gm/dl Albumin/Globulin Ratio 0.9 Lipase 472 U/L Bedside Hemoglobin 13.3 g/dl Bedside Hematocrit 39 % Bedside Sodium 143 mEq/L Bedside Potassium 4.3 mEq/L Bedside Chloride 106 mEq/L Bedside Total CO2 23 mEq/l Bedside Blood Urea Nitrogen 13 mg/dl Bedside Creatinine 1.7 mg/dl Bedside Glucose (other) 136 mg/dl Bedside Ionized Calcium (Nani) 1.09 mmol/l Bedside Lactic Acid Venous 3.83 mmol/L Bedside Troponin I < 0.030 ng/ml Test 09/19/17 21:57 09/20/17 03:07 Ammonia 27.4 umol/L Ethyl Alcohol mg/dL 183.3 mg/dl Lactic Acid Level 1.5 mmol/L Ionized Calcium 1.02 mmol/l Total Creatine Kinase 175 U/L Creatine Kinase MB 4.2 ng/ml Creatine Kinase MB Ratio 2.4 Troponin I 0.024 ng/ml [~ rep ct add3]] CT SCAN OF THE ABDOMEN AND PELVIS WITH IV CONTRAST CLINICAL HISTORY: Generalized abdominal pain. COMPARISON STUDY: Abdominal CT dated 10/21/16 TECHNIQUE: Following the IV administration of 118 cc of Optiray 320, CT scan of the abdomen and pelvis is performed from the lung bases to the proximal femora. Images are reviewed in the axial, sagittal, and coronal planes. IV contrast was administered without complication. A dose lowering technique was utilized adhering to the principles of ALARA. CT DOSE: 941.80 mGycm FINDINGS: Lung bases: The heart is mildly enlarged and without pericardial effusion. The lung bases are clear noting dependent atelectasis. There is a small hiatal hernia. Liver: The contrast-enhanced liver is normal in size, contour, and attenuation. There is no intrahepatic biliary ductal dilatation. The hepatic veins and portal veins are patent. Gallbladder: Unremarkable. Spleen: Normal in size and attenuation. Pancreas: Unremarkable. Adrenal glands: Unremarkable. Kidneys: The contrast enhanced kidneys are normal in size and without hydronephrosis. The kidneys enhance symmetrically. Abdominal vasculature: The abdominal aorta is normal in course and caliber noting mild to moderate atherosclerotic calcification. Bowel: There is mild colonic diverticulosis without CT evidence of acute diverticulitis. Mild colonic wall thickening is suggested and there is faint pericolonic infiltration. The appearance suggests mild colitis. No bowel obstruction is seen. The appendix is well-visualized and normal. Peritoneum: There is no intraperitoneal free air or abdominal ascites. There is a small fat-containing umbilical hernia. Lymphadenopathy: None. Pelvic viscera: The bladder wall appears thickened the prostate gland demonstrates median lobe hypertrophy, and this is likely related to chronic outlet obstruction. This is unchanged from previous Skeletal structures: There is mild lumbosacral spondylosis and scoliosis. No lytic or blastic lesions are seen. IMPRESSION: 1. Question a mild nonspecific colitis. Clinical correlation will be required. 2. Cardiomegaly. 3. Mild colonic diverticulosis without CT evidence of acute diverticulitis. 4. Additional findings as above. Electronically signed by: Rusty Francois M.D. 09/19/2017 11:09 PM Dictated Date/Time: 09/19/2017 11:05 PM The status of this report is Signed. Draft = Not yet reviewed Assessment & Plan 56-year-old male with history of recurrent C difficile colitis, as well as chronic alcohol abuse, now readmitted with recurrence of C difficile colitis. Vancomycin therapy appropriate, and would recommend prolonged tapering course given multiple recurrences. Patient may be good candidate for fecal transplant , will discuss with all involved. Will follow.
[2017-09-20 10:44] LABS: CKMB 3.4 ng/ml (0.5-3.6)
--- NOTE | 2017-09-20 12:00 | NUR ---
A: Previous assessment unchanged unless noted. Patient sitting in bed eating lunch. Patient complain of anxiety and restlessness. BP elevated. AWAS scale=7, 1mg of Ativan given per protocol. IV sites patent and flushed. NSS @125 continues to infuse. VS remain stable. Patient denies any needs at this time. Will continue to monitor.
--- NOTE | 2017-09-20 12:22 | Psychiatric History & Physical ---
History Date of Service Sep 20, 2017. Identifying Data Lobo Pinzon is a 56-year-old male admitted on Sep 20, 2017 at 01:23 who currently lives in [place] with his , has a history of alcoholism and multiple medical problems, and was admitted with C diff and alcohol withdrawal. Psychiatry is consulted for depression. Chief Complaint "Just working and drinking". History of Present Illness The patient is known to me from a previous consultation in 2016, also for depression in the context of severe and prolonged alcohol dependence. He has no psychiatric history, but a prolonged history of alcohol dependence. His mood worsened about a year ago after he was laid. The recommendations at that times were to stop drinking, get substance abuse treatment, and he agreed to resume AA , which he'd had a good response to in the past. He was again admitted medically with alcohol withdrawal in 04/2017, but refused to see psychiatry at that time. The hospitalist started him on escitalopram 10mg. This morning he presented to the ER with increased alcohol intake over the past 2 weeks, diarrhea, and weakness. He reported having C. difficile 4 times in the past, stating he often gets that when his drinking increases. He admitted that he had been taking his 's Ativan to help with "the shakes," and his blood alcohol level on presentation was 183.3. He is admitted medically for management of C. difficile and alcohol withdrawal, and has been started on the Librium taper with lorazepam as needed for alcohol withdrawal, and has already received 3 mg today. My assessment, he states he has been abusing alcohol for years, has received 3 DUIs in the past, and his drinking because his last marriage to end. He admits to heavy daily alcohol use, up to 20 beers a day recently. He has a history of numerous episodes of alcohol withdrawal, and had been taking his 's Ativan at home for this. He admits to disrupted sleep, awakening frequently at night to smoke cigarettes, low mood, and worrying about losing his job, stating "I just got a good job, and I worry all screwed up." He denies all other neurovegetative symptoms, reports good appetite, and denies problems with energy, focus, suicidal thoughts, and thoughts of harming others. He admits to increased arguing with his over his drinking. He states that he enjoys drinking and chopping firewood. He denies symptoms of alessandro, psychosis, and anxiety, other than in the context of anxiety with withdrawal. He states that he knows he drinks too much, and his plan to address it is "I'm not going to drink this time when I leave the hospital." He is willing to return to , which he has attended in the past, but is adamantly refusing to consider inpatient rehabilitation or outpatient substance abuse treatment, stating that he wants to get back to work. He states his PCP had been prescribing the escitalopram that was started several months ago in the hospital , but he has not noticed that it's been helpful. Past Psychiatric History Current OP Treatment: no current treatment Prior OP Treatment: no prior treatment Prior Psych Hospitalizations: none Suicide Attempts: No Past Medication Trials Escitalopram 10 mg daily started in the hospital in April 2017, and has been held on this admission. Past Medical/Surgical History (1) Dehydration (2) Chest pain (3) C. difficile colitis (4) HTN (hypertension) (5) Renal artery stenosis (6) Hepatitis C (7) Obesity (8) Alcohol dependence (9) History of GI bleed (10) CAD (coronary artery disease) (11) Ischemic cardiomyopathy Allergies Allergies: Coded Allergies: No Known Allergies (Unverified , 05/28/16) Home Medications Scheduled Arginine (L-Arginine), 1 CAP PO BID Ascorbic Acid (Vitamin C), 500 MG PO BID Aspirin (Aspirin Ec), 81 MG PO DAILY Atorvastatin (Lipitor), 40 MG PO DAILY Carvedilol (Coreg), 1 TAB PO BID Carvedilol (Coreg), 1 TAB PO BID Clopidogrel (Plavix), 75 MG PO DAILY Folic Acid (Folic Acid), 400 MCG PO DAILY Glucosamine Sulfate (Glucosamine), 1 TAB PO BID Isosorbide Mononitrate Ext Rel (Imdur Ext Rel), 60 MG PO QAM Lisinopril (Zestril), 40 MG PO DAILY Nitroglycerin (Nitrostat), 0.4 MG UT PRN Omeprazole (Prilosec), 20 MG PO DAILY Thiamine Hcl (Vitamin B-1), 1 TAB PO DAILY Vancomycin HCl (Vancomycin HCl + Syrspend), 125 MG PO UD [Boswellia], 800 MG PO DAILY Scheduled PRN Tramadol (Ultram), 100 MG PO BID PRN for Pain Family History Diabetes mellitus BROTHER History of Suicide: No Psychiatric History: No Alcohol Use Alcohol Use In Past 12 Months: Yes (heavy daily drinking for years, currently in alcohol withdrawal) Admits that drinking has negatively impacted all realms of life, including relationships, health, work, legal problems. He has driven after drinking at times, but states he "tries not to" due to his history of multiple DUIs. Not in treatment in any form currently. Rehab x 2 in the past, cannot recall where, several years ago - completed first program but left the second one early, as felt everyone else was there to avoid snf. States he was in an outpatient men' s recovery group and felt font in the past, but is no longer attending. Has attended AA in the past. 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 Has had withdrawal symptoms at work, but denies drinking on the job. Relationship History: (10 years) Children: adults Legal History: reported (3 DUIs, the last approximately 10 years ago, spent 90 days in snf) Additional Comments: States his parents live nearby and are supportive. Review of Systems 10 systems reviewed: Positive for nausea, diarrhea, shakes, sweats. Others negative except as stated above. Examination Physical Examination A physical exam was performed [in the ER] [on the medical floor] prior to admission to the unit by [ ]. I accept that physical as correct/medical clearance for the inpatient physical exam. Vital Signs Vital Signs Past 12 Hours Date Time Temp Pulse Resp B/P (MAP) Pulse Ox O2 Delivery O2 Flow Rate FiO2 09/20/17 12:00 97 Room Air 09/20/17 12:00 36.4 70 22 169/105 (126) 97 Room Air 09/20/17 08:30 98 Room Air 09/20/17 08:30 36.8 74 24 159/95 (116) 98 Room Air 09/20/17 08:00 36.8 74 24 159/95 (116) 98 Room Air 09/20/17 05:40 36.8 88 24 140/88 (105) 98 09/20/17 04:15 36.8 79 24 144/89 (107) 95 Room Air 09/20/17 04:00 Room Air 09/20/17 02:45 24 09/20/17 02:32 36.7 89 20 128/86 (100) 95 Room Air 09/20/17 02:30 95 Room Air 09/20/17 02:30 95 Room Air 09/20/17 01:42 84 17 95 09/20/17 01:31 146/93 09/20/17 01:27 83 19 94 09/20/17 01:12 84 20 97 09/20/17 01:09 88 09/20/17 01:00 155/91 09/20/17 00:57 85 17 95 09/20/17 00:52 85 14 95 09/20/17 00:37 85 19 92 09/20/17 00:30 140/88 09/20/17 00:22 86 17 94 Laboratory Results Last 24 Hours Test 09/19/17 21:25 09/19/17 21:47 09/19/17 21:51 09/19/17 21:56 White Blood Count 7.37 K/uL Red Blood Count 4.17 M/uL Hemoglobin 14.7 g/dL Hematocrit 42.4 % Mean Corpuscular Volume 101.7 fL Mean Corpuscular Hemoglobin 35.3 pg Mean Corpuscular Hemoglobin Concent 34.7 g/dl Platelet Count 162 K/uL Mean Platelet Volume 9.9 fL Neutrophils (%) (Auto) 65.3 % Lymphocytes (%) (Auto) 22.5 % Monocytes (%) (Auto) 8.7 % Eosinophils (%) (Auto) 2.7 % Basophils (%) (Auto) 0.3 % Neutrophils # (Auto) 4.81 K/uL Lymphocytes # (Auto) 1.66 K/uL Monocytes # (Auto) 0.64 K/uL Eosinophils # (Auto) 0.20 K/uL Basophils # (Auto) 0.02 K/uL RDW Standard Deviation 52.5 fL RDW Coefficient of Variation 14.2 % Immature Granulocyte % (Auto) 0.5 % Immature Granulocyte # (Auto) 0.04 K/uL Prothrombin Time 9.9 SECONDS Prothromb Time International Ratio 0.9 Activated Partial Thromboplast Time 21.9 SECONDS Partial Thromboplastin Ratio 0.8 Sodium Level 142 mmol/L Potassium Level 4.1 mmol/L Chloride Level 108 mmol/L Carbon Dioxide Level 27 mmol/L Anion Gap 7.0 mmol/L 20.0 mmol/L Blood Urea Nitrogen 14 mg/dl Creatinine 1.40 mg/dl Est Creatinine Clear Calc Drug Dose 66.8 ml/min Estimated GFR () 65.6 Estimated GFR (Non- 56.6 BUN/Creatinine Ratio 9.6 Random Glucose 149 mg/dl Calcium Level 8.1 mg/dl Phosphorus Level 2.7 mg/dl Magnesium Level 2.3 mg/dl Total Bilirubin 0.2 mg/dl Aspartate Amino Transf (AST/SGOT) 34 U/L Alanine Aminotransferase (ALT/SGPT) 42 U/L Alkaline Phosphatase 68 U/L Total Protein 7.3 gm/dl Albumin 3.5 gm/dl Globulin 3.8 gm/dl Albumin/Globulin Ratio 0.9 Lipase 472 U/L Bedside Hemoglobin 13.3 g/dl Bedside Hematocrit 39 % Bedside Sodium 143 mEq/L Bedside Potassium 4.3 mEq/L Bedside Chloride 106 mEq/L Bedside Total CO2 23 mEq/l Bedside Blood Urea Nitrogen 13 mg/dl Bedside Creatinine 1.7 mg/dl Bedside Glucose (other) 136 mg/dl Bedside Ionized Calcium (Nani) 1.09 mmol/l Bedside Lactic Acid Venous 3.83 mmol/L Bedside Troponin I < 0.030 ng/ml Test 09/19/17 21:57 09/20/17 03:07 09/20/17 10:00 Ammonia 27.4 umol/L Ethyl Alcohol mg/dL 183.3 mg/dl Lactic Acid Level 1.5 mmol/L Ionized Calcium 1.02 mmol/l Total Creatine Kinase 175 U/L 176 U/L Creatine Kinase MB 4.2 ng/ml 3.4 ng/ml Creatine Kinase MB Ratio 2.4 1.9 Troponin I 0.024 ng/ml 0.033 ng/ml Mental Examination During interview pt is: alert and oriented, cooperative Appearance: disheveled, other (overweight, dressed in a hospital gown, lying in bed in no acute distress.) Eye contact is: fair Motor behavior is: no abnormal motor movements Speech: normal in rate, rhythm & volume Affect: blunted Mood is: other ("I just got a good job, and worry I'll screw it up.") Thought process: goal directed Thought content: reality based without delusions Suicidal thought are: denied Homicidal thoughts are: denied Hallucinations: denies auditory, denies visual Cognition: memory grossly intact, attention grossly intact, language grossly intact Intelligence estimated to be: average Insight: impaired Judgement: impaired Impression / Recommendations Impression 56-year-old white male with alcohol dependence and multiple medical problems who is admitted with C. difficile and alcohol intoxication, now in alcohol withdrawal. Psychiatry is consulted for depression, and although he admits to lower mood and disrupted sleep, this is most likely due to his severe and prolonged alcohol abuse, and unlikely to respond to antidepressants. He has been drinking daily and heavily for many years, and has poor insight into the severity of his condition and the need to seek a higher level of care to address it. He refuses recommendations for inpatient rehabilitation or outpatient substance abuse treatment, and states he is only willing to resume AA meetings, as he wants to return to work and worries about losing his job. He would benefit from ongoing education about the risks of continued alcohol abuse, including worsening of his multiple medical problems and mood, as he is at high risk of as a complication of his drinking he continues with his current pattern of behavior. The primary recommendation is for inpatient substance abuse treatment, which he is unwilling to consider. He also states an unwillingness to consider IOP, but if he changes his mind, director social service can be consulted to make a referral. I do not believe that an antidepressant is indicated, as his primary diagnosis is substance induced depression, and SSRIs are unlikely to be helpful given his ongoing drinking and limited commitment to sobriety. I certainly would not prescribe him any controlled substances outside of the hospital, given the high risk of abuse/misuse/drug drug interactions with alcohol.. CPT Code Initial Hospital Care: [id number]
--- NOTE | 2017-09-20 16:00 | NUR ---
Pt assessed. resting in the bed. mild to moderately anxious. oriented to questions. awss scale 6. medicated per orders. lungs are clear. vital signs stable on room air. c/o abd discomfort and diarrhea x 2 today. tolerating diet and po fluids. no peripheral edema or skin impairment. iv fluids infusing without complication. nsr 70s on monitoring manager. refusing scds at this time. oob to restroom with supervision. call robertson in reach. bed alarm on. will continue to monitor.
--- NOTE | 2017-09-20 16:52 | ECHOCARDIOGRAM REPORT ---
*NOTICE TO RECEIVING [employer] This information is strictly Confidential and protected under [place] law. [place] law prohibits you from making any further disclosure of this information unless further disclosure is expressly permitted by the written consent of the person to whom it pertains or is authorized by law. A general authorization for the release of medical or other information is not sufficient for this purpose. Hospital accepts no responsibility if the information is made available to any other person, INCLUDING THE PATIENT. Interpretation Summary * Name: JAZMIN PARK Study Date: 09/20/2017 03:35 PM BP: 159/68 mmHg * Patient Location: C.2T\S\S236\S\1 HR: 89 * : 1960 (M/d/yyyy) Gender: Male Height: 66 in * Age: 56 yrs Ethnicity: [place] Weight: 220 lb * Ordering Physician: Christiano Perea * Referring Physician: Self, Referred * Performed By: Divine Degroot RDCS * * Reason For Study: CHEST PAIN * BSA: 2.1 m2 * -- Conclusions -- * The left ventricular wall motion is normal. * There is mild concentric left ventricular hypertrophy. * Ejection Fraction = 55-60%. * Grade I diastolic dysfunction, (abnormal relaxation pattern). * There is no significant valvular heart disease. Procedure Details * A contrast injection of Definity was performed to improve assessment of LV function. * Contrast was injected into an intravenous site in the left arm. * One vial of Definity ultrasound contrast was diluted in normal saline to a total volume of 10 ml. A total of '2' ml of solution was administered during imaging. * Lot # [id number] of Definity utilized for procedure. * Expiration date 1 NOV 07. * A complete two-dimensional transthoracic echocardiogram was performed (2D, M-mode, Doppler and color flow Doppler). Left Ventricle * The left ventricle is normal in size. * There is mild concentric left ventricular hypertrophy. * Left ventricular systolic function is normal. * Ejection Fraction = 55-60%. * The left ventricular wall motion is normal. Right Ventricle * The right ventricle is normal size. * The right ventricular systolic function is normal as assessed by tricuspid annular plane systolic excursion (TAPSE) (normal >1.5 cm). Atria * The left atrial size is normal. * Right atrial size is normal. * There is no evidence of atrial septal defect, but resolution does not allow assessment for a patent foramen ovale. Mitral Valve * The mitral valve is normal. * There is no mitral valve stenosis. * Significant mitral regurgitation is absent. Tricuspid Valve * The tricuspid valve is normal. * There is no tricuspid stenosis. * Significant tricuspid regurgitation is absent. * Doppler findings do not suggest pulmonary hypertension. Aortic Valve * The aortic valve is trileaflet. * Aortic stenosis is absent. * There is no significant aortic regurgitation. Pulmonic Valve * The pulmonary valve is not well seen, but the Doppler examination is normal without significant regurgitation or stenosis. Great Vessels * The aortic root and proximal ascending aorta are normal sized. Pericardium/Pleural * There is no pericardial effusion. Great Vessels * Normal inferior vena cava diameter and respiratory variation suggests normal central venous pressure. Left Ventricular Diastolic Function * Grade I diastolic dysfunction, (abnormal relaxation pattern). MMode 2D Measurements and Calculations IVSd 1.7 cm IVSs 2.1 cm LVIDd 4.3 cm LVIDs 3.2 cm LVPWd 1.1 cm LVPWs 1.8 cm IVS/LVPW 1.5 FS 26.3 % EDV(Teich) 85.0 ml ESV(Teich) 40.9 ml EF(Teich) 51.8 % EDV(cubed) 81.9 ml ESV(cubed) 32.8 ml EF(cubed) 60.0 % % IVS thick 25.9 % % LVPW thick 64.6 % LV mass(C)d 230.4 grams LV mass(C)dI 110.6 grams/m\S\2 LV mass(C)s 270.9 grams LV mass(C)sI 130.1 grams/m\S\2 SV(Teich) 44.1 ml SI(Teich) 21.2 ml/m\S\2 SV(cubed) 49.2 ml SI(cubed) 23.6 ml/m\S\2 Ao root diam 3.8 cm Ao root area 11.4 cm\S\2 LA dimension 3.4 cm LA/Ao 0.89 LVAd ap4 39.1 cm\S\2 LVLd ap4 10.0 cm EDV(MOD-sp4) 122.1 ml EDV(sp4-el) 130.1 ml LVAs ap4 26.5 cm\S\2 LVLs ap4 9.5 cm ESV(MOD-sp4) 60.5 ml ESV(sp4-el) 62.6 ml EF(MOD-sp4) 50.4 % EF(sp4-el) 51.9 % LVAd ap2 34.5 cm\S\2 LVLd ap2 9.3 cm EDV(MOD-sp2) 101.6 ml EDV(sp2-el) 108.4 ml LVAs ap2 21.9 cm\S\2 LVLs ap2 8.9 cm ESV(MOD-sp2) 44.0 ml ESV(sp2-el) 46.0 ml EF(MOD-sp2) 56.7 % EF(sp2-el) 57.6 % LVLd %diff -7.14 % EDV(MOD-bp) 114.3 ml LVLs %diff -7.46 % ESV(MOD-bp) 52.3 ml EF(MOD-bp) 54.2 % SV(MOD-sp4) 61.6 ml SI(MOD-sp4) 29.6 ml/m\S\2 SV(MOD-sp2) 57.6 ml SI(MOD-sp2) 27.7 ml/m\S\2 SV(MOD-bp) 61.9 ml SI(MOD-bp) 29.7 ml/m\S\2 SV(sp4-el) 67.4 ml SI(sp4-el) 32.4 ml/m\S\2 SV(sp2-el) 62.5 ml SI(sp2-el) 30.0 ml/m\S\2 Doppler Measurements and Calculations MV E max madeline 100.9 cm/sec MV A max madeline 68.4 cm/sec MV E/A 1.5 MV dec time 0.17 sec Ao V2 max 124.1 cm/sec Ao max PG 6.2 mmHg Ao max PG (full) 2.9 mmHg AI max madeline 564.7 cm/sec AI max PG 127.5 mmHg AI dec slope 431.1 cm/sec\S\2 AI P1/2t 383.6 msec LV V1 max PG 3.3 mmHg LV V1 max 90.2 cm/sec TR max madeline 282.3 cm/sec
--- NOTE | 2017-09-20 19:38 | Progress Note ---
Medicine Progress Note Date & Time of Visit: Sep 20, 2017 at 19:22. Subjective Pt was seen and examined Lying in bed with no distress Pt wanted to know if he will be discharged today He refused inpatient alcohol rehab He said that he continues to have diarrhea denies any chest pain, palpitation, dizziness and SOB Objective Last 8 Hrs Date Time Temp Pulse Resp B/P (MAP) Pulse Ox O2 Delivery O2 Flow Rate FiO2 09/20/17 16:00 Room Air 09/20/17 15:26 36.9 89 18 159/68 (98) 96 09/20/17 14:00 36.7 70 24 165/118 (134) 97 Room Air 09/20/17 12:00 97 Room Air 09/20/17 12:00 36.4 70 22 169/105 (126) 97 Room Air Physical Exam: General- No acute distress Head- atraumatic Eyes- PERRL, EOMI ENT- oropharynx clear Neck- supple, no JVD Lungs- clear to auscultation Heart- regular rhythm; no murmur Abdomen- normal bowel sounds, soft Extremities- no pretibial edema, no calf tenderness Neuro- alert, oriented x 3; PERRL, EOMI; no facial palsy Skin- warm & dry Laboratory Results: Last 24 Hours Test 09/19/17 21:25 09/19/17 21:47 09/19/17 21:51 09/19/17 21:56 White Blood Count 7.37 K/uL Red Blood Count 4.17 M/uL Hemoglobin 14.7 g/dL Hematocrit 42.4 % Mean Corpuscular Volume 101.7 fL Mean Corpuscular Hemoglobin 35.3 pg Mean Corpuscular Hemoglobin Concent 34.7 g/dl Platelet Count 162 K/uL Mean Platelet Volume 9.9 fL Neutrophils (%) (Auto) 65.3 % Lymphocytes (%) (Auto) 22.5 % Monocytes (%) (Auto) 8.7 % Eosinophils (%) (Auto) 2.7 % Basophils (%) (Auto) 0.3 % Neutrophils # (Auto) 4.81 K/uL Lymphocytes # (Auto) 1.66 K/uL Monocytes # (Auto) 0.64 K/uL Eosinophils # (Auto) 0.20 K/uL Basophils # (Auto) 0.02 K/uL RDW Standard Deviation 52.5 fL RDW Coefficient of Variation 14.2 % Immature Granulocyte % (Auto) 0.5 % Immature Granulocyte # (Auto) 0.04 K/uL Prothrombin Time 9.9 SECONDS Prothromb Time International Ratio 0.9 Activated Partial Thromboplast Time 21.9 SECONDS Partial Thromboplastin Ratio 0.8 Sodium Level 142 mmol/L Potassium Level 4.1 mmol/L Chloride Level 108 mmol/L Carbon Dioxide Level 27 mmol/L Anion Gap 7.0 mmol/L 20.0 mmol/L Blood Urea Nitrogen 14 mg/dl Creatinine 1.40 mg/dl Est Creatinine Clear Calc Drug Dose 66.8 ml/min Estimated GFR () 65.6 Estimated GFR (Non- 56.6 BUN/Creatinine Ratio 9.6 Random Glucose 149 mg/dl Calcium Level 8.1 mg/dl Phosphorus Level 2.7 mg/dl Magnesium Level 2.3 mg/dl Total Bilirubin 0.2 mg/dl Aspartate Amino Transf (AST/SGOT) 34 U/L Alanine Aminotransferase (ALT/SGPT) 42 U/L Alkaline Phosphatase 68 U/L Total Protein 7.3 gm/dl Albumin 3.5 gm/dl Globulin 3.8 gm/dl Albumin/Globulin Ratio 0.9 Lipase 472 U/L Bedside Hemoglobin 13.3 g/dl Bedside Hematocrit 39 % Bedside Sodium 143 mEq/L Bedside Potassium 4.3 mEq/L Bedside Chloride 106 mEq/L Bedside Total CO2 23 mEq/l Bedside Blood Urea Nitrogen 13 mg/dl Bedside Creatinine 1.7 mg/dl Bedside Glucose (other) 136 mg/dl Bedside Ionized Calcium (Nani) 1.09 mmol/l Bedside Lactic Acid Venous 3.83 mmol/L Bedside Troponin I < 0.030 ng/ml Test 09/19/17 21:57 09/20/17 03:07 09/20/17 10:00 Ammonia 27.4 umol/L Ethyl Alcohol mg/dL 183.3 mg/dl Lactic Acid Level 1.5 mmol/L Ionized Calcium 1.02 mmol/l Total Creatine Kinase 175 U/L 176 U/L Creatine Kinase MB 4.2 ng/ml 3.4 ng/ml Creatine Kinase MB Ratio 2.4 1.9 Troponin I 0.024 ng/ml 0.033 ng/ml Date/Time Source Procedure Growth Status 09/19/17 23:26 Blood Blood Culture Pending Received 09/19/17 21:28 Blood Blood Culture Pending Received 09/19/17 23:45 Stool C.difficile Toxin B Gene (PCR) - Final Positive for C. difficile toxin B gene Complete 09/19/17 23:45 Stool Shiga Toxin Test Pending Received 09/19/17 23:45 Stool Stool Culture Pending Received Assessment & Plan RECURRENT C. DIFF COLITIS Stools for Cdiff positive Continue oral vanco with a long course slow taper ID on board Pt might be a candidate for fecal transplant SYNCOPE Mostly due to hypotension/hypovolemia likely from dehydration secondary to diarrhea Continue IVF ALCOHOL INTOXICATION Will monitor for alcohol withdrawn/DT Alcohol Withdrawal Protocol including Librium and PRN Ativan Refused inpatient alcohol rehab CHEST PAIN COSTOCHONDRITIS S/P fall from syncope Xray rib showed no right-sided rib fractures Continue tramadol and Lidoderm Patch Echo showed * The left ventricular wall motion is normal. * There is mild concentric left ventricular hypertrophy. * Ejection Fraction = 55-60%. * Grade I diastolic dysfunction, (abnormal relaxation pattern). * There is no significant valvular heart disease. ELEVATED LACTIC ACID resolved MILD HYPOCALCEMIA Likely from Diarrhea Continue monitor SMOKER On nicotine patch PROLONGED QT HOLD Lexapro Stable CAD Continue Carvedilol, continue Imdur continue ASA, Plavix DEPRESSION Due to alcohol abuse Psych on board Will need to treat substance abuse DVT PROPHYLAXIS SCDs for now Will start on heparin subq in am if platelet stable CODE STATUS FULL CODE Current Inpatient Medications: Current Inpatient Medications Medications (Trade) Dose Ordered Sig/Johnny Route Start Time Stop Time Status Last Admin Dose Admin Ioversol (Optiray 320) 100 ml UD PRN IV 09/19/17 21:45 09/23/17 21:44 Vancomycin HCl (Vancomycin Oral Soln) 125 mg Taper Q6H PO 09/20/17 06:00 11/01/17 05:59 09/20/17 17:36 125 MG Sodium Chloride 1,000 ml @ 125 mls/hr Q8H IV 09/20/17 03:00 10/20/17 02:59 09/20/17 17:37 125 MLS/HR Thiamine HCl (Vitamin B-1 Tab) 100 mg DAILY PO 09/20/17 03:30 10/20/17 03:29 09/20/17 05:40 100 MG Lorazepam (Ativan Inj) 0.5 mg Q4H PRN IV 09/20/17 01:45 10/20/17 01:44 09/20/17 08:44 0.5 MG Nicotine (Nicoderm Cq 14MG Patch) 1 patch QAM TD 09/20/17 09:00 10/20/17 08:59 09/20/17 06:00 1 PATCH Miscellaneous (Remove Nicoderm Patch) 1 ea HS N/A 09/20/17 21:00 10/20/17 20:59 Tramadol HCl (Ultram Tab) 50 mg Q6H PRN PO 09/20/17 02:00 10/20/17 01:59 Lidocaine (Lidoderm Patch 5%) 1 patch QAM TD 09/21/17 09:00 10/21/17 08:59 Miscellaneous (Remove Lidoderm Patch) 1 ea DAILY@21 N/A 09/20/17 15:00 10/20/17 14:59 09/20/17 15:38 1 EA Aspirin (Ecotrin Tab) 81 mg DAILY PO 09/20/17 09:00 10/20/17 08:59 09/20/17 09:03 81 MG Carvedilol (Coreg Tab) 12.5 mg BID PO 09/20/17 09:00 10/20/17 08:59 09/20/17 09:03 12.5 MG Clopidogrel Bisulfate (plAVix TAB) 75 mg DAILY PO 09/20/17 09:00 10/20/17 08:59 09/20/17 09:03 75 MG Folic Acid (Folvite Tab) 400 mcg DAILY PO 09/20/17 09:00 10/20/17 08:59 09/20/17 09:03 400 MCG Isosorbide Mononitrate (Imdur Ext Rel Tab) 60 mg QAM PO 09/20/17 09:00 10/20/17 08:59 09/20/17 09:03 60 MG Pantoprazole Sodium (Protonix Tab) 40 mg DAILY PO 09/20/17 09:00 10/20/17 08:59 09/20/17 09:03 40 MG Acetaminophen (Tylenol Tab) 650 mg Q4H PRN PO 09/20/17 02:15 10/20/17 02:14 Lorazepam 0.5 mg/ Syringe 1 ml @ 1 mls/min Q4H PRN IV 09/20/17 03:00 10/20/17 02:59 09/20/17 05:39 1 MLS/MIN Chlordiazepoxide (Librium Cap) 50 mg Q6H PO 09/20/17 03:30 09/20/17 21:31 09/20/17 15:38 50 MG Chlordiazepoxide (Librium Cap) 50 mg Q8H PO 09/21/17 06:00 09/21/17 22:01 Chlordiazepoxide (Librium Cap) 25 mg Q8H PO 09/22/17 06:00 09/22/17 22:01 Chlordiazepoxide (Librium Cap) 10 mg Q12H PO 09/23/17 10:00 09/23/17 22:01 Miscellaneous (Iv Fluids Completed) 1 ea PRN PRN N/A 09/20/17 05:00 09/20/18 04:59 Lorazepam (Ativan Inj) PRN Dosing -Active Protocol Q1H PRN IV 09/20/17 06:00 10/20/17 05:59 09/20/17 17:36 1 MG Calcium Carbonate (oS-Satnam 500 TAB) 1,250 mg BID PO 09/20/17 09:00 10/20/17 08:59 09/20/17 09:12 1,250 MG
--- NOTE | 2017-09-20 20:00 | NUR ---
Pt assessed. drowsy, oriented to questions. awss scale 6. medicated per orders. lungs are clear. vital signs stable on room air. tolerating diet and po fluids. no peripheral edema or skin impairment. iv fluids infusing without complication. 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 refusing scds at this time. call robertson in reach. bed alarm on. will continue to monitor.
[2017-09-20] MEDS: CARVEDILOL 25 MG TAB PO SCH (22:10)
[2017-09-21] VITALS (10 sets, daily range): BP systolic 138–185; BP diastolic 89–112; PULSE 70–90; TEMP 36.3–36.8; O2SAT 92–98
--- NOTE | 2017-09-21 00:05 | NUR ---
A: Pt A&Ox4, tolerating AHA diet. Pt assessed. Pt receiving IVF. Pt denies CP/SOB. RYAN scale of 6, medicated per orders. Pt on contact precautions. Call robertson within reach, side rails up x2, will continue to monitor.
[2017-09-21] MEDS: SODIUM CHLORIDE 0.9% 1000ML 1,000 ML IV SCH (00:31)
[2017-09-21] MEDS: VANCOMYCIN HCL 125 MG/2.5ML SOLN PO SCH ×4 (00:34→18:45)
[2017-09-21] MEDS: LORAZEPAM 2 MG/ML 1 ML VIAL IV PRN ×3 (02:48→08:12)
--- NOTE | 2017-09-21 04:05 | NUR ---
A: Pt A&Ox4, tolerating AHA diet. Pt receiving IVF. Pt denies CP/SOB. RYAN scale remains a 6, medicated per orders. Pt on contact precautions. Call robertson within reach, side rails up x2, will continue to monitor.
[2017-09-21] MEDS: CHLORDIAZEPOXIDE 50MG Q8H DOSE PO SCH ×2 (06:04→14:13)
[2017-09-21 06:50] LABS: BASO % 0.1 %; BASO ABS # 0.01 K/uL (0-0.2); EOS % 2.9 %; HEMATOCRIT 37.8 % (42-52); IG# 0.02 K/uL (0.00-0.02); LYMPH % 16.6 %; LYMPH ABS # 1.14 K/uL (1.2-3.4); MEAN CELL VOLUME 101.9 fL (80-100); MEAN CORPUSCULAR HGB CONC 34.4 g/dl (32-36); MEAN PLATELET VOLUME 9.5 fL (7.4-10.4); MONO % 7.9 %; MONO ABS # 0.54 K/uL (0.11-0.59); NEUT % 72.2 %; NEUT ABS # 4.94 K/uL (1.4-6.5); PLATELET COUNT 100 K/uL (130-400); RED CELL DISTRIBUTION WIDTH CV 14.1 % (11.5-14.5); RED CELL DISTRIBUTION WIDTH SD 52.9 fL (36.4-46.3); WHITE BLOOD COUNT 6.85 K/uL (4.8-10.8)
[2017-09-21 07:23] LABS: CALCIUM 7.9 mg/dl (8.5-10.1); CREATININE 0.64 mg/dl (0.60-1.40); POTASSIUM 3.7 mmol/L (3.5-5.1)
--- NOTE | 2017-09-21 08:00 | NUR ---
ID: Patient resting in bed. Patient is alert and oriented x4, but restless and is states he is anxious. Alcohol withdraw scale=7. IV Ativan given per protocol. Will continue to monitor neuro status closely. Lungs are clear on room air. New Nicotine patch placed on right upper arm. Patient states his left shoulder is hurting, Lidoderm patch placed. Patient SR in the 70s on monitor. BP elevated, but stable. Left AC IV patent, infusing NSS @100. Left AC IV flushed and patent. VSS. Patient denies any needs at this time. Will continue to monitor.
[2017-09-21] MEDS: NICOTINE 14 MG/24 HR TDSY TD SCH (08:03)
[2017-09-21] MEDS: CLOPIDOGREL BISULFATE 75 MG TAB PO SCH (08:04)
[2017-09-21] MEDS: FoLIC ACID TAB 400 MCG TAB PO SCH (08:04)
[2017-09-21] MEDS: CALCIUM CARBONATE 1250MG TAB PO SCH (08:04)
[2017-09-21] MEDS: ASPIRIN 81 MG ECTAB PO SCH (08:04)
[2017-09-21] MEDS: CARVEDILOL 25 MG TAB PO SCH (08:04)
[2017-09-21] MEDS: ISOSORBIDE MONONITRATE 60 MG TABCR PO SCH (08:05)
[2017-09-21] MEDS: THIAMINE HCL 100 MG TAB PO SCH (08:05)
[2017-09-21] MEDS: PANTOprazole SOD 40 MG TAB PO SCH (08:09)
[2017-09-21] MEDS ORDERED: LIDODERM (LIDOCAINE) PATCH 5% TD SCH (09:00)
[2017-09-21] MEDS ORDERED: LISINOPRIL 40 MG TAB PO SCH (09:00)
--- NOTE | 2017-09-21 12:00 | NUR ---
A: Previous assessment unchanged unless noted. Patient sitting in bed eating lunch. Patient denies anxiety and appears calm. BP stable. AWAS scale=3, No Ativan given per protocol. IV sites patent and flushed. NSS @100 continues to infuse. VS remain stable. Patient denies any needs at this time. Will continue to monitor. Addendum: 09/21/17 at 1228 by Shawna Gonzales RN NSS discontinued at 1000am
--- NOTE | 2017-09-21 15:50 | NUR ---
Case Management: Case find d/t needs identified. Met with pt who reports living with his , Madisyn, and being independent with ADLs, ambulation, and driving. Pt is currently employed. Pt states he was sober for 1 year prior to slipping up over the holidays. Pt states he is motivated to stay sober after hospital stay and will resume AA meetings 3x/week. Pt's longest length of time sober was 19 years. Pt states he went to [facility] before but it was "guys getting out of snf to be there and swapping stories about how they are getting back on the streets when they leave." Pt has found going to AA meetings being more effective for him to stay sober. Pt did verbalized concern that he doesn't want his boss to find out about this. Ensured pt that his inpatient stay is confidential unless he chooses to share the information himself. Pt denies discharge needs at this time. Case Management to follow.
--- NOTE | 2017-09-21 16:00 | NUR ---
A: A&Ox4. Resting comfortably without complaints of pain. Patient states he is anxious to be discharged home. NSR on the monitor. Lung sounds are clear on RA. Denies SOB. +BS. States his stools are now formed. Voiding without difficulty. No evidence of skin breakdown. Nicotine patch and Lidoderm patches are intact. See EMR for complete assessment details. Call robertson is within reach. Will continue to monitor.
--- NOTE | 2017-09-21 18:56 | Progress Note ---
Medicine Progress Note Date & Time of Visit: Sep 21, 2017 at 18:47. Subjective Pt was seen and examined Lying in bed with no distress Pt said that diarrhea improved Pt does not want his employer know that he was in the hospital for alcohol intoxication. Denies any hallucination, palpitation, dizziness and SOB Objective Last 8 Hrs Date Time Temp Pulse Resp B/P (MAP) Pulse Ox O2 Delivery O2 Flow Rate FiO2 09/21/17 16:00 Room Air 09/21/17 16:00 36.7 90 19 138/89 (105) 96 Room Air 09/21/17 12:00 97 Room Air 09/21/17 11:47 36.7 83 18 158/108 (125) 95 Room Air Physical Exam: General- No acute distress Head- atraumatic Eyes- PERRL, EOMI ENT- oropharynx clear Neck- supple, no JVD Lungs- clear to auscultation Heart- regular rhythm; no murmur Abdomen- normal bowel sounds, soft Extremities- no pretibial edema, no calf tenderness Neuro- alert, oriented x 3; PERRL, EOMI; no facial palsy Skin- warm & dry Laboratory Results: Last 24 Hours Test 09/21/17 06:18 09/21/17 11:42 White Blood Count 6.85 K/uL Red Blood Count 3.71 M/uL Hemoglobin 13.0 g/dL Hematocrit 37.8 % Mean Corpuscular Volume 101.9 fL Mean Corpuscular Hemoglobin 35.0 pg Mean Corpuscular Hemoglobin Concent 34.4 g/dl Platelet Count 100 K/uL Mean Platelet Volume 9.5 fL Neutrophils (%) (Auto) 72.2 % Lymphocytes (%) (Auto) 16.6 % Monocytes (%) (Auto) 7.9 % Eosinophils (%) (Auto) 2.9 % Basophils (%) (Auto) 0.1 % Neutrophils # (Auto) 4.94 K/uL Lymphocytes # (Auto) 1.14 K/uL Monocytes # (Auto) 0.54 K/uL Eosinophils # (Auto) 0.20 K/uL Basophils # (Auto) 0.01 K/uL RDW Standard Deviation 52.9 fL RDW Coefficient of Variation 14.1 % Immature Granulocyte % (Auto) 0.3 % Immature Granulocyte # (Auto) 0.02 K/uL Sodium Level 137 mmol/L Potassium Level 3.7 mmol/L Chloride Level 108 mmol/L Carbon Dioxide Level 24 mmol/L Anion Gap 5.0 mmol/L Blood Urea Nitrogen 13 mg/dl Creatinine 0.64 mg/dl Est Creatinine Clear Calc Drug Dose 148.4 ml/min Estimated GFR () 128.7 Estimated GFR (Non- 111.0 BUN/Creatinine Ratio 20.5 Random Glucose 88 mg/dl Calcium Level 7.9 mg/dl Magnesium Level 1.8 mg/dl Bedside Glucose 96 mg/dl Assessment & Plan RECURRENT C. DIFF COLITIS Stools for Cdiff positive Continue oral vanco with a long course slow taper ID on board Pt might be a candidate for fecal transplant Continue vanco po SYNCOPE Mostly due to hypotension/hypovolemia likely from dehydration secondary to diarrhea Stable ALCOHOL INTOXICATION Will monitor for alcohol withdrawn/DT Alcohol Withdrawal Protocol including Librium and PRN Ativan Refused inpatient alcohol rehab No signs of withdrawn CHEST PAIN COSTOCHONDRITIS S/P fall from syncope Xray rib showed no right-sided rib fractures Continue tramadol and Lidoderm Patch Echo showed * The left ventricular wall motion is normal. * There is mild concentric left ventricular hypertrophy. * Ejection Fraction = 55-60%. * Grade I diastolic dysfunction, (abnormal relaxation pattern). * There is no significant valvular heart disease. ELEVATED LACTIC ACID resolved MILD HYPOCALCEMIA Likely from Diarrhea Continue monitor SMOKER On nicotine patch PROLONGED QT HOLD Lexapro Stable CAD Continue Carvedilol, continue Imdur continue ASA, Plavix DEPRESSION Due to alcohol abuse Psych on board Will need to treat substance abuse DVT PROPHYLAXIS SCDs for now Will start on heparin subq in am if platelet stable CODE STATUS FULL CODE Disposition Discharge home today Current Inpatient Medications: Current Inpatient Medications Medications (Trade) Dose Ordered Sig/Johnny Route Start Time Stop Time Status Last Admin Dose Admin Ioversol (Optiray 320) 100 ml UD PRN IV 09/19/17 21:45 09/23/17 21:44 Vancomycin HCl (Vancomycin Oral Soln) 125 mg Taper Q6H PO 09/20/17 06:00 11/01/17 05:59 09/21/17 12:35 125 MG Sodium Chloride 1,000 ml @ 100 mls/hr Q10H IV 09/20/17 03:00 10/20/17 02:59 09/21/17 00:31 100 MLS/HR Thiamine HCl (Vitamin B-1 Tab) 100 mg DAILY PO 09/20/17 03:30 10/20/17 03:29 09/21/17 08:05 100 MG Lorazepam (Ativan Inj) 0.5 mg Q4H PRN IV 09/20/17 01:45 10/20/17 01:44 09/20/17 19:32 1 MG Nicotine (Nicoderm Cq 14MG Patch) 1 patch QAM TD 09/20/17 09:00 10/20/17 08:59 09/21/17 08:03 1 PATCH Miscellaneous (Remove Nicoderm Patch) 1 ea HS N/A 09/20/17 21:00 10/20/17 20:59 09/20/17 22:04 1 EA Tramadol HCl (Ultram Tab) 50 mg Q6H PRN PO 09/20/17 02:00 10/20/17 01:59 Lidocaine (Lidoderm Patch 5%) 1 patch QAM TD 09/21/17 09:00 10/21/17 08:59 09/21/17 08:05 1 PATCH Miscellaneous (Remove Lidoderm Patch) 1 ea DAILY@21 N/A 09/20/17 15:00 10/20/17 14:59 09/20/17 15:38 1 EA Aspirin (Ecotrin Tab) 81 mg DAILY PO 09/20/17 09:00 10/20/17 08:59 09/21/17 08:04 81 MG Clopidogrel Bisulfate (plAVix TAB) 75 mg DAILY PO 09/20/17 09:00 10/20/17 08:59 09/21/17 08:04 75 MG Folic Acid (Folvite Tab) 400 mcg DAILY PO 09/20/17 09:00 10/20/17 08:59 09/21/17 08:04 400 MCG Isosorbide Mononitrate (Imdur Ext Rel Tab) 60 mg QAM PO 09/20/17 09:00 10/20/17 08:59 09/21/17 08:05 60 MG Pantoprazole Sodium (Protonix Tab) 40 mg DAILY PO 09/20/17 09:00 10/20/17 08:59 09/21/17 08:09 40 MG Acetaminophen (Tylenol Tab) 650 mg Q4H PRN PO 09/20/17 02:15 10/20/17 02:14 Lorazepam 0.5 mg/ Syringe 1 ml @ 1 mls/min Q4H PRN IV 09/20/17 03:00 10/20/17 02:59 09/20/17 05:39 1 MLS/MIN Chlordiazepoxide (Librium Cap) 50 mg Q8H PO 09/21/17 06:00 09/21/17 22:01 09/21/17 14:13 50 MG Chlordiazepoxide (Librium Cap) 25 mg Q8H PO 09/22/17 06:00 09/22/17 22:01 Chlordiazepoxide (Librium Cap) 10 mg Q12H PO 09/23/17 10:00 09/23/17 22:01 Miscellaneous (Iv Fluids Completed) 1 ea PRN PRN N/A 09/20/17 05:00 09/20/18 04:59 Lorazepam (Ativan Inj) PRN Dosing -Active Protocol Q1H PRN IV 09/20/17 06:00 10/20/17 05:59 09/21/17 08:12 1 MG Calcium Carbonate (oS-Satnam 500 TAB) 1,250 mg BID PO 09/20/17 09:00 10/20/17 08:59 09/21/17 08:04 1,250 MG Carvedilol (Coreg Tab) 25 mg BID PO 09/20/17 21:00 10/20/17 20:59 09/21/17 08:04 25 MG Lisinopril (Zestril Tab) 40 mg DAILY PO 09/21/17 09:00 10/21/17 08:59 09/21/17 09:04 40 MG
[2017-09-21] MEDS ORDERED: VANC1SUS PO (19:07)
--- NOTE | 2017-09-21 19:14 | Discharge Instructions ---
Discharge Instructions Date of Service Sep 21, 2017. Admission Reason for Admission: C. Difficile Diarrhea Discharge Discharge Diagnosis / Problem: C. Diff/Diarrhea/Alcohol intoxication Discharge Goals Goal(s): Decrease discomfort, Improve function, Improve disease control Activity Recommendations Activity Limitations: resume your previous activity (as tolerated) . Instructions / Follow-Up Instructions / Follow-Up Follow up with your primary care provider ( Dr. Santana's office will call you) Follow up with Infectious Disease Dr. Agudelo, if diarrhea bautista not improve when complete the vancomycin Continue long taper course of vanco Fall precaution Counseling on alcohol cessation Encourage patient to call AA meeting to help with the alcohol Seek medical attention if you develop any sign of alcohol withdrawn ( palpitation, tremors, hallucination, confusion) Current Hospital Diet Patient's current hospital diet: AHA Diet (Heart Healthy) Discharge Diet Recommended Diet: AHA Diet (Heart Healthy) Pending Studies Studies pending at discharge: no Medical Emergencies . Who to Call and When: Medical Emergencies: If at any time you feel your situation is an emergency, please call 911 immediately. . Non-Emergent Contact Non-Emergency issues call your: Primary Care Provider Call Non-Emergent contact if: you have any medication questions . . "Provider Documentation" section prepared by Gordo Flores. . VTE Core Measure Inpt VTE Proph given/why not?: SCD's
--- NOTE | 2017-09-21 19:30 | NUR ---
A: Discharge instructions provided to patient and spouse. Medications reviewed and follow-up appointments discussed. 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 Patient was provided with prescription for Vancomycin and a return to work note. Patient refused to be taken out in a wheelchair.
[2017-09-22] MEDS ORDERED: CHLORDIAZEPOXIDE 25MG Q8H DOSE PO SCH (06:00)
[2017-09-23] MEDS ORDERED: CHLORDIAZEPOXIDE 10MG Q12H DOSE PO SCH (10:00)
--- NOTE | 2017-09-25 21:16 | Discharge Summary ---
Discharge Summary Date of Service Sep 25, 2017. Discharge Summary Admission Date: Sep 20, 2017 at 01:23 Discharge Date: Sep 21, 2017 Discharge Disposition: Home Principal Diagnosis: C. Diff/Diarrhea Secondary Diagnoses/Problems: Alcohol intoxication SYNCOPE CHEST PAIN DEPRESSION TOBACCO ABUSE CAD Procedures: CT SCAN OF THE BRAIN WITHOUT IV CONTRAST CLINICAL HISTORY: Change in mental status. COMPARISON STUDY: CT of the brain dated 05/19/2013. TECHNIQUE: Unenhanced axial CT scan of the brain is performed from the vertex to the skull base. A dose lowering technique was utilized adhering to the principles of ALARA. CT DOSE: 965.19 mGycm FINDINGS: Brain parenchyma: The brain parenchyma is normal in appearance. There is no hemorrhage, mass effect, or evidence of acute territorial ischemia by CT criteria. Tavarez-white matter is preserved. No extra-axial fluid collection is seen. Ventricles, sulci, cisterns: Normal in configuration. Intracranial vasculature: There is atherosclerotic calcification of the cavernous carotid arteries. Calvarium: Unremarkable. Sinuses and mastoids: Trace mucosal thickening is seen in the left maxillary antrum and ethmoid sinuses. The remaining visualized paranasal sinuses are clear. The mastoid air cells are well pneumatized. Orbits: The bony orbits are grossly intact. IMPRESSION: There is no hemorrhage, mass effect, or evidence of acute territorial ischemia by CT criteria. Electronically signed by: Rusty Francois M.D. 09/19/2017 10:30 PM Dictated Date/Time: 09/19/2017 10:29 PM [~ rep ct add3]] CT SCAN OF THE ABDOMEN AND PELVIS WITH IV CONTRAST CLINICAL HISTORY: Generalized abdominal pain. COMPARISON STUDY: Abdominal CT dated 10/21/16 TECHNIQUE: Following the IV administration of 118 cc of Optiray 320, CT scan of the abdomen and pelvis is performed from the lung bases to the proximal femora. Images are reviewed in the axial, sagittal, and coronal planes. IV contrast was administered without complication. A dose lowering technique was utilized adhering to the principles of ALARA. CT DOSE: 941.80 mGycm FINDINGS: Lung bases: The heart is mildly enlarged and without pericardial effusion. The lung bases are clear noting dependent atelectasis. There is a small hiatal hernia. Liver: The contrast-enhanced liver is normal in size, contour, and attenuation. There is no intrahepatic biliary ductal dilatation. The hepatic veins and portal veins are patent. Gallbladder: Unremarkable. Spleen: Normal in size and attenuation. Pancreas: Unremarkable. Adrenal glands: Unremarkable. Kidneys: The contrast enhanced kidneys are normal in size and without hydronephrosis. The kidneys enhance symmetrically. Abdominal vasculature: The abdominal aorta is normal in course and caliber noting mild to moderate atherosclerotic calcification. Bowel: There is mild colonic diverticulosis without CT evidence of acute diverticulitis. Mild colonic wall thickening is suggested and there is faint pericolonic infiltration. The appearance suggests mild colitis. No bowel obstruction is seen. The appendix is well-visualized and normal. Peritoneum: There is no intraperitoneal free air or abdominal ascites. There is a small fat-containing umbilical hernia. Lymphadenopathy: None. Pelvic viscera: The bladder wall appears thickened the prostate gland demonstrates median lobe hypertrophy, and this is likely related to chronic outlet obstruction. This is unchanged from previous Skeletal structures: There is mild lumbosacral spondylosis and scoliosis. No lytic or blastic lesions are seen. IMPRESSION: 1. Question a mild nonspecific colitis. Clinical correlation will be required. 2. Cardiomegaly. 3. Mild colonic diverticulosis without CT evidence of acute diverticulitis. 4. Additional findings as above. Electronically signed by: Rusty Francois M.D. 09/19/2017 11:09 PM Dictated Date/Time: 09/19/2017 11:05 PM SINGLE VIEW CHEST CLINICAL HISTORY: Sepsis. FINDINGS: An AP, portable, upright chest radiograph is compared to study dated 04/27/2017. The examination is degraded by portable technique and patient rotation. The heart is enlarged and there is atherosclerotic calcification of the thoracic aorta. The pulmonary vasculature is noncongested. There are low lung volumes and bibasilar atelectasis. No airspace consolidation or large pleural effusion is identified. No pneumothorax is seen. The bony thorax is grossly intact. Arthritic change is noted in the shoulders. IMPRESSION: Cardiomegaly with no acute cardiopulmonary abnormality. Electronically signed by: Rusty Francois M.D. 09/19/2017 11:01 PM Dictated Date/Time: 09/19/2017 11:00 PM R RIBS UNILATERAL 4 VIEWS CLINICAL HISTORY: Right rib pain COMPARISON STUDY: Chest x-ray dated 09/19/2017 FINDINGS: No pneumothorax is visualized. No right-sided rib fractures are evident. Faint collecting system opacification is visualized within the right kidney IMPRESSION: No right-sided rib fractures identified. Electronically signed by: Catalino Cuevas M.D. 09/20/2017 6:28 AM Dictated Date/Time: 09/20/2017 6:27 AM Medication Reconciliation New Medications: Vancomycin HCl (Vancomycin HCl + Syrspend) 50 Mg/Ml Columba 125 MG PO UD for 30 Days vanco 125 mg qID for 2 weeks, then 125 mg BID for 1 week, then 125 mg daily for 1 week. Continued Medications: Arginine (L-Arginine) Unknown Strength Cap 1 CAP PO BID Ascorbic Acid (Vitamin C) 500 Mg Tab 500 MG PO BID Aspirin (Aspirin Ec) 81 Mg Tab 81 MG PO DAILY Atorvastatin (Lipitor) 40 Mg Tab 40 MG PO DAILY, TAB Carvedilol (Coreg) 12.5 Mg Tab 1 TAB PO BID for 90 Days, #180 TAB 1 Refill Carvedilol (Coreg) 25 Mg Tab 1 TAB PO BID for 90 Days, #180 TAB 1 Refill Clopidogrel (Plavix) 75 Mg Tab 75 MG PO DAILY, TAB Folic Acid (Folic Acid) 400 Mcg Tab 400 MCG PO DAILY Glucosamine Sulfate (Glucosamine) Unknown Strength Tab 1 TAB PO BID, TAB Isosorbide Mononitrate Ext Rel (Imdur Ext Rel) 60 Mg Ertab 60 MG PO QAM, TAB Lisinopril (Zestril) 40 Mg Tab 40 MG PO DAILY, TAB Nitroglycerin (Nitrostat) 0.4 Mg Tab 0.4 MG UT PRN, BTL Omeprazole (Prilosec) 20 Mg Capcr 20 MG PO DAILY, CAP Thiamine Hcl (Vitamin B-1) Unknown Strength Tab 1 TAB PO DAILY, TAB Tramadol (Ultram) 50 Mg Tab 100 MG PO BID PRN for Pain, TAB [Boswellia] () 800 MG PO DAILY Discontinued Medications: Escitalopram (Lexapro) 10 Mg Tab 10 MG PO DAILY, TAB Admission Information HPI (per Admitting provider): 56 year old male with history of Alcoholism, Smoking, CAD, HTN and other problems noted below presenting with syncope. Patient follows with Dr. Rachel for PCP. He states that he drinks everyday but since 3-4 days ago has been drinking about 20 beers/day because he is getting more depressed. He denies suicidal ideations. For the past week or so, patient has also been having diarrhea >5x a day, non bloody associated with abdominal cramps. Today, patient states he was walking in the basement, got dizzy, passed out and was found by his on the floor. He was then brought to the ER. At the ER, BP was 91/55, HR 92, afebrile. ETOH was 183. CT head: no acute findings. CT abdomen: non specific colitis. C diff stool: (+) Positive He was given IV fluid boluses and BP gradually improved. On exam, patient seen resting in bed, not in distress, feels improved compared to admission. Reports mild abdominal discomfort. Also reports right sided chest pain, after he fell. No other symptoms. Physical Exam (per Admitting): General Appearance: WD/WN, no apparent distress Head: normocephalic, atraumatic Eyes: normal inspection, PERRL, EOMI, sclerae normal ENT: normal ENT inspection, hearing grossly normal, pharynx normal Neck: supple, no adenopathy, thyroid normal, no JVD, trachea midline Respiratory/Chest: lungs clear, normal breath sounds, no respiratory distress, no accessory muscle use, + pertinent finding ((+) tenderness on the right chest wall) Cardiovascular: regular rate, rhythm, no edema, no JVD, no murmur Abdomen/GI: normal bowel sounds, soft, + pertinent finding (moderate tenderness on all quadrants) Back: normal inspection, no CVA tenderness Extremities/Musculoskelatal: normal inspection, no calf tenderness, no pedal edema, normal range of motion, pelvis stable Neurologic/Psych: safety and health manager II-XII nml as tested, no motor/sensory deficits, alert , normal reflexes, oriented x 3 Skin: normal color, warm/dry, no rash Lymphatic: no adenopathy Hospital Course RECURRENT C. DIFF COLITIS Stools for Cdiff positive Continue oral vanco with a long course slow taper ID on board Pt might be a candidate for fecal transplant Continue vanco po SYNCOPE Mostly due to hypotension/hypovolemia likely from dehydration secondary to diarrhea Stable ALCOHOL INTOXICATION Will monitor for alcohol withdrawn/DT Alcohol Withdrawal Protocol including Librium and PRN Ativan Refused inpatient alcohol rehab No signs of withdrawn CHEST PAIN COSTOCHONDRITIS S/P fall from syncope Xray rib showed no right-sided rib fractures Continue tramadol and Lidoderm Patch Echo showed * The left ventricular wall motion is normal. * There is mild concentric left ventricular hypertrophy. * Ejection Fraction = 55-60%. * Grade I diastolic dysfunction, (abnormal relaxation pattern). * There is no significant valvular heart disease. ELEVATED LACTIC ACID resolved MILD HYPOCALCEMIA Likely from Diarrhea Continue monitor SMOKER On nicotine patch PROLONGED QT HOLD Lexapro Stable CAD Continue Carvedilol, continue Imdur continue ASA, Plavix DEPRESSION Due to alcohol abuse Psych on board Will need to treat substance abuse DVT PROPHYLAXIS SCDs for now Will start on heparin subq in am if platelet stable CODE STATUS FULL CODE Disposition Discharge home today Total time spent on discharge = 35 minutes This includes examination of the patient, discharge planning, medication reconciliation, and communication with other providers. Discharge Instructions Discharge Instructions Date of Service Sep 21, 2017. Admission Reason for Admission: C. Difficile Diarrhea Discharge Discharge Diagnosis / Problem: C. Diff/Diarrhea/Alcohol intoxication Discharge Goals Goal(s): Decrease discomfort, Improve function, Improve disease control Activity Recommendations Activity Limitations: resume your previous activity (as tolerated) . Instructions / Follow-Up Instructions / Follow-Up Follow up with your primary care provider ( Dr. Santana's office will call you) Follow up with Infectious Disease Dr. Agudelo, if diarrhea bautista not improve when complete the vancomycin Continue long taper course of vanco Fall precaution Counseling on alcohol cessation Encourage patient to call AA meeting to help with the alcohol Seek medical attention if you develop any sign of alcohol withdrawn ( palpitation, tremors, hallucination, confusion) Current Hospital Diet Patient's current hospital diet: AHA Diet (Heart Healthy) Discharge Diet Recommended Diet: AHA Diet (Heart Healthy) Pending Studies Studies pending at discharge: no Medical Emergencies . Who to Call and When: Medical Emergencies: If at any time you feel your situation is an emergency, please call 911 immediately. . Non-Emergent Contact Non-Emergency issues call your: Primary Care Provider Call Non-Emergent contact if: you have any medication questions . . "Provider Documentation" section prepared by Gordo Flores. . VTE Core Measure Inpt VTE Proph given/why not?: SCD's Additional Copies To Tesfaye Santana M.D.
[2018-01-24] MEDS ORDERED: LISI40TA3 PO (18:18)
[2018-01-24] MEDS ORDERED: THIA100T27 PO (21:21)
[2018-01-30] MEDS ORDERED: METR1TAB4 PO (19:04)
== END 2017-09-21 19:40 | disposition home or self-care (01) | DRG 373 ==
LOC: C.EDB 21:08 → C.MED 09-20 01:23 → ENRESERV 09-20 01:35 → C.2T 09-20 08:27
PROVIDERS: ADMIT Internal Medicine; ATTEND Internal Medicine
DX: A04.71 Enterocolitis due to Clostridium difficile, recurrent (principal); R55 Syncope and collapse; I25.10 Atherosclerotic heart disease of native coronary artery without angina pectoris; I10 Essential (primary) hypertension; I95.9 Hypotension, unspecified; F10.129 Alcohol abuse with intoxication, unspecified; W19.XXXA Unspecified fall, initial encounter; R07.9 Chest pain, unspecified; R74.0 Nonspecific elevation of levels of transaminase and lactic acid dehydrogenase [LDH]; E83.51 Hypocalcemia; F17.200 Nicotine dependence, unspecified, uncomplicated; Z83.3 Family history of diabetes mellitus; I45.81 Long QT syndrome; Z79.02 Long term (current) use of antithrombotics/antiplatelets; Z79.82 Long term (current) use of aspirin; F32.9 Major depressive disorder, single episode, unspecified

== ENCOUNTER 2017-12-14 13:08 | Emergency (ER) | payer OTHER ==
[~2017-12-14] VITALS: Ht 167.6 cm; Wt 99.8 kg
[~2017-12-14 13:08] MED LIST changes: +ARGI1CAP2 PO; +ASCO-63 PO; -ASPI-320 PO; +ASPI81TA28 PO; +ATOR-24 PO; +BOSWELLIA PO; +CARV25TA2 PO; +CLOP1TAB15 PO; -FLV1 PO; +FLV400 PO; -FURO-85 PO; +GLUC10007 PO; -ISOS30TA3 PO; +ISOS60TA25 PO; -LACTCAP3 PO; -LISI-726 PO; +LISI40TA PO; -LPT40 PO; -LXP10 PO; +NTRGSL/4 UT; -NTRSLP4 SL; -PANT1TAB4 PO; -PLV75 PO; +PRLSR20 PO; +THIA100T11 PO; -THIA100T27 PO; +TRAM-10 PO; +VANC1SUS PO; -VNCS125 PO
[2017-12-14 13:18] VITALS: TEMP 37; Ht 167.6 cm; Wt 99.8 kg
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
[2017-12-14 15:15] VITALS: BP 149/109; PULSE 129; O2SAT 94
[2017-12-14] MEDS ORDERED: NICOTINE 21 MG/24 HR TDSY TD STA (15:26)
[2017-12-14 16:00] LABS: BASO % 0.2 %; BASO ABS # 0.01 K/uL (0-0.2); EOS % 1.1 %; EOS ABS # 0.07 K/uL (0-0.5); HEMATOCRIT 44.2 % (42-52); HEMOGLOBIN 15.9 g/dL (14.0-18.0); IG# 0.02 K/uL (0.00-0.02); LYMPH % 33.3 %; LYMPH ABS # 2.06 K/uL (1.2-3.4); MEAN CELL VOLUME 96.3 fL (80-100); MEAN CORPUSCULAR HEMOGLOBIN 34.6 pg (25-34); MEAN PLATELET VOLUME 9.6 fL (7.4-10.4); MONO % 9.4 %; MONO ABS # 0.58 K/uL (0.11-0.59); NEUT % 55.7 %; NEUT ABS # 3.44 K/uL (1.4-6.5); PLATELET COUNT 106 K/uL (130-400); RED CELL DISTRIBUTION WIDTH CV 12.6 % (11.5-14.5); RED CELL DISTRIBUTION WIDTH SD 44.1 fL (36.4-46.3); WHITE BLOOD COUNT 6.18 K/uL (4.8-10.8)
[2017-12-14 16:10] LABS: INR 0.9 (0.9-1.1)
[2017-12-14] MEDS ORDERED: DIAZEPAM 5MG TAB PO STA (16:15)
[2017-12-14 16:19] LABS: ALBUMIN 3.9 gm/dl (3.4-5.0); ALT/SGPT 202 U/L (12-78); AST/SGOT 164 U/L (15-37); BLOOD UREA NITROGEN 5 mg/dl (7-18); CALCIUM 8.3 mg/dl (8.5-10.1); CARBON DIOXIDE 21 mmol/L (21-32); CREATININE 0.74 mg/dl (0.60-1.40); GLUCOSE 87 mg/dl (70-99); LIPASE 261 U/L (73-393); POTASSIUM 3.6 mmol/L (3.5-5.1); SODIUM 138 mmol/L (136-145)
[2017-12-14 16:24] LABS: ALKALINE PHOSPHATASE 77 U/L (45-117)
== END 2017-12-14 17:30 | disposition home or self-care (01) ==
LOC: EDBD 13:08 → C.EDB 13:10
DX: F10.129 Alcohol abuse with intoxication, unspecified (principal); R94.5 Abnormal results of liver function studies; I25.10 Atherosclerotic heart disease of native coronary artery without angina pectoris; B19.20 Unspecified viral hepatitis C without hepatic coma; I10 Essential (primary) hypertension; I25.5 Ischemic cardiomyopathy; E66.9 Obesity, unspecified; I70.1 Atherosclerosis of renal artery; Z83.3 Family history of diabetes mellitus; F17.210 Nicotine dependence, cigarettes, uncomplicated

== ENCOUNTER 2018-01-24 17:03 | Inpatient (IN) | payer SELFPAY ==
[~2018-01-24] VITALS: Ht 167.6 cm; Wt 98.1 kg
[2018-01-24] MEDS ORDERED: THIAMINE HCL INJ 100 MG in SYRINGE 9 ML IV SCH (17:20)
[2018-01-24] MEDS ORDERED: SODIUM CHLORIDE 0.9% 1000ML 1,000 ML IV STA (17:20)
[2018-01-24] MEDS ORDERED: THIAMINE HCL 100 MG/ML 2 ML VIAL IV STA (17:20)
--- NOTE | 2018-01-24 17:25 | EMERGENCY ROOM VISIT NOTE ---
History Report prepared by Roro: Gideon Salcido Under the Supervision of: Kanchan LambO. First contact with patient: 17:10 Chief Complaint: DETOX REQUEST Stated Complaint: [id number] FOR 2 MONTHS-NOT EATING History of Present Illness The patient is a 57 year old male with a history of alcohol dependence who presents to the Emergency Room with complaints of a worsening need for a detox over the past couple months. Per the patient's significant other, the patient lost his job, and has went into a deep depression, and has been drinking 5, 30 packs of beer per week. The patient has had chronic diarrhea for 2 months now, and has a history of C. difficile. Per the patient's significant other, the patient has been despondent and cannot eat. The patient states that he has drank a 30-pack over the past 24 hours, and just drank before coming in. He has been refusing to take his daily medications recently because it makes him have diarrhea. The patient denies any suicidal or homicidal ideations, in addition to any auditory hallucinations. He notes that he still has all his abdominal organs. He says that he wants to quit drinking. He has a history of a heart attack last year with a stent placement. The patient notes that he smokes cigarettes but denies any recreational drug use. Per the patient's significant other, the patient has not been diagnosed with cirrhosis yet but was told that he may go into it soon. The patient states that he has been having abdominal pain with some coughing. Source of History: patient, spouse/significant other Onset: Past couple months Position: other (global) Symptom Intensity: drinking 5, 30 packs of beer per day Quality: other (need for detox) Associated Symptoms: + cough, + abdominal pain Note: Denies suicidal ideations or homicidal ideations. Denies auditory hallucinations. Review of Systems See HPI for pertinent positives & negatives. A total of 10 systems reviewed and were otherwise negative. Past Medical & Surgical Medical Problems: (1) Alcohol dependence (2) Alcohol intoxication (3) C. difficile diarrhea (4) CAD (coronary artery disease) (5) Hepatitis C (6) History of GI bleed (7) HTN (hypertension) (8) Ischemic cardiomyopathy (9) Obesity (10) Renal artery stenosis Surgical Problems: (1) H/O esophagogastroduodenoscopy Family History Diabetes mellitus BROTHER Social History Smoking Status: Current Every Day Smoker Alcohol Use: heavy Marital Status: Housing Status: lives with significant other Occupation Status: employed Current/Historical Medications Scheduled Arginine ([id number]), 500 MG PO BID Aspirin (Aspirin Ec), 81 MG PO DAILY Atorvastatin (Lipitor), 40 MG PO DAILY Vfnaxxugn-Seowaszswjg-Ohlricf (Glucosamine Complex), 1 TAB PO DAILY Carvedilol (Coreg), 25 MG PO BID Carvedilol (Coreg), 12.5 MG PO BID Clopidogrel (Plavix), 75 MG PO DAILY Folic Acid (Ra Folic Acid), 400 MCG PO DAILY Isosorbide Mononitrate Ext Rel (Imdur Ext Rel), 60 MG PO QAM Lisinopril (Lisinopril), 40 MG PO DAILY Milk Thistle (Silybum [place] (Milk Thistle), 175 MG PO DAILY Omeprazole (Prilosec), 20 MG PO DAILY Thiamine HCl (Vitamin B-1), 1 TAB PO DAILY Allergies Coded Allergies: No Known Allergies (Unverified , 01/24/18) Physical Exam Vital Signs Date Time Temp Pulse Resp B/P (MAP) Pulse Ox O2 Delivery O2 Flow Rate FiO2 01/24/18 19:35 118 20 148/98 96 Room Air 01/24/18 18:55 114 114/86 94 Room Air 01/24/18 18:07 115 22 138/109 94 Room Air 01/24/18 17:43 116 01/24/18 17:40 96 Room Air 01/24/18 17:40 96 Room Air 01/24/18 17:06 36.9 130 18 192/97 96 Room Air Physical Exam GENERAL: Patient is awake, alert, smells of alcohol, does not appear anxious. EYES: The conjunctivae are clear. The pupils are round and reactive. EARS, NOSE, MOUTH AND THROAT: The nose is without any evidence of any deformity. Mucous membranes are moist tongue is midline NECK: The neck is nontender and supple. RESPIRATORY: Normal respiratory effort is noted there is no evidence of wheezing rhonchi or rales CARDIOVASCULAR: Regular rate and rhythm noted there no murmurs rubs or gallops normal S1 normal S2 GASTROINTESTINAL: The abdomen is soft. Bowel sounds are present in all quadrants. Abdomen is nontender MUSCULOSKELETAL/EXTREMITIES: There is no evidence of gross deformity full range of motion is noted in the hips and shoulders SKIN: There is no obvious evidence of any rash. There are no petechiae, pallor or cyanosis noted. NEUROLOGIC: Patient is awake alert and oriented x3 strength is symmetric patellar reflexes are 2+ bilaterally PSYCH: No suicidal ideation or homicidal ideation elicited. Medical Decision & Procedures ER Provider Diagnostic Interpretation: X-ray results as stated below per interpretation by me and the radiologist. CHEST ONE VIEW PORTABLE CLINICAL HISTORY: Overdose COMPARISON STUDY: 09/19/2017 FINDINGS: The heart is at the upper limits of normal in size. There are low lung volumes with bronchovascular crowding at the lung bases. There is no overt failure. There are no pleural effusions.[ IMPRESSION: Low lung volumes with hypoventilatory changes at the lung bases Electronically signed by: Catalino Cuevas M.D. 01/24/2018 5:46 PM Dictated Date/Time: 01/24/2018 5:46 PM Laboratory Results 01/24/18 17:49 Red Blood Count 4.23, Mean Corpuscular Volume 98.1, Mean Corpuscular Hemoglobin 35.5, Mean Corpuscular Hemoglobin Concent 36.1, Mean Platelet Volume 9.9, Neutrophils (%) (Auto) 63.6, Lymphocytes (%) (Auto) 26.6, Monocytes (%) (Auto) 8.0, Eosinophils (%) (Auto) 0.8, Basophils (%) (Auto) 0.6, Neutrophils # (Auto) 3.01, Lymphocytes # (Auto) 1.26, Monocytes # (Auto) 0.38, Eosinophils # (Auto) 0.04, Basophils # (Auto) 0.03 01/24/18 17:49 Test 01/24/18 17:49 01/24/18 18:36 01/24/18 19:08 White Blood Count 4.74 K/uL (4.8-10.8) Red Blood Count 4.23 M/uL (4.7-6.1) Hemoglobin 15.0 g/dL (14.0-18.0) Hematocrit 41.5 % (42-52) Mean Corpuscular Volume 98.1 fL (80-100) Mean Corpuscular Hemoglobin 35.5 pg (25-34) Mean Corpuscular Hemoglobin Concent 36.1 g/dl (32-36) Platelet Count 157 K/uL (130-400) Mean Platelet Volume 9.9 fL (7.4-10.4) Neutrophils (%) (Auto) 63.6 % Lymphocytes (%) (Auto) 26.6 % Monocytes (%) (Auto) 8.0 % Eosinophils (%) (Auto) 0.8 % Basophils (%) (Auto) 0.6 % Neutrophils # (Auto) 3.01 K/uL (1.4-6.5) Lymphocytes # (Auto) 1.26 K/uL (1.2-3.4) Monocytes # (Auto) 0.38 K/uL (0.11-0.59) Eosinophils # (Auto) 0.04 K/uL (0-0.5) Basophils # (Auto) 0.03 K/uL (0-0.2) RDW Standard Deviation 57.9 fL (36.4-46.3) RDW Coefficient of Variation 16.0 % (11.5-14.5) Immature Granulocyte % (Auto) 0.4 % Immature Granulocyte # (Auto) 0.02 K/uL (0.00-0.02) Anion Gap 13.0 mmol/L (3-11) Est Creatinine Clear Calc Drug Dose 160.4 ml/min Estimated GFR () 135.0 Estimated GFR (Non- 116.4 BUN/Creatinine Ratio 4.7 (10-20) Calcium Level 8.1 mg/dl (8.5-10.1) Total Bilirubin 2.1 mg/dl (0.2-1) Alanine Aminotransferase (ALT/SGPT) 370 U/L (12-78) Alkaline Phosphatase 244 U/L (45-117) Creatine Kinase MB 1.2 ng/ml (0.5-3.6) Creatine Kinase MB Ratio 0.9 (0-3.0) Troponin I < 0.015 ng/ml (0-0.045) Total Protein 7.7 gm/dl (6.4-8.2) Albumin 2.9 gm/dl (3.4-5.0) Lipase 341 U/L (73-393) Ethyl Alcohol mg/dL 328.2 mg/dl (0-3) Prothrombin Time 10.5 SECONDS (9.0-12.0) Prothromb Time International Ratio 1.0 (0.9-1.1) Activated Partial Thromboplast Time 24.7 SECONDS (21.0-31.0) Partial Thromboplastin Ratio 1.0 Osmolality 361 mOsm/kg (280-300) Urine Color YELLOW Urine Appearance CLEAR (CLEAR) Urine pH 6.5 (4.5-7.5) Urine Specific [place] 1.009 (1.000-1.030) Urine Protein NEG (NEG) Urine Glucose (UA) NEG (NEG) Urine Ketones NEG (NEG) Urine Occult Blood NEG (NEG) Urine Nitrite NEG (NEG) Urine Bilirubin NEG (NEG) Urine Urobilinogen NEG (NEG) Urine Leukocyte Esterase NEG (NEG) Urine Opiates Screen NEG (NEG) Urine Methadone, Qualitative NEG (NEG) Urine Barbiturates NEG (NEG) Urine Phencyclidine (PCP) Level NEG (NEG) Ur Amphetamine/Methamphetamine NEG (NEG) MDMA (Ecstasy) Screen NEG (NEG) Urine Benzodiazepines Screen NEG (NEG) Urine Cocaine Metabolite NEG (NEG) Urine Marijuana (THC) NEG (NEG) Laboratory results per my review. Medications Administered Medications (Trade) Dose Ordered Sig/Johnny Route Start Time Stop Time Status Last Admin Dose Admin Sodium Chloride 1,000 ml @ 999 mls/hr Q1H1M STAT IV 01/24/18 17:20 01/24/18 18:20 DC 01/24/18 17:35 999 MLS/HR Thiamine HCl 100 mg/Syringe 10 ml @ 2 mls/min 1720 IV 01/24/18 17:20 01/24/18 18:01 DC 01/24/18 18:07 2 MLS/MIN ECG Per My Interpretation Indication: abdominal pain Rate (beats per minute): 117 Rhythm: sinus tachycardia Findings: no ectopy, other (poor R-wave progression) Comparison ECG Date: changes are new compared to 09/20/17 ED Course 1716: The patient was evaluated in room A2. A complete history and physical examination were performed. 1720: Thiamine HCl 100 mg/Syringe 10 ml @ 2 mls/min IV, NSS 1000 ml @ 999 mls/ hr IV. 1930: I reevaluated the patient and he notified me that he will not want to stay. Medical Decision Differential diagnosis: Etiologies such as mood disorder, infection, hypoglycemia, electrolyte abnormalities, cardiac sources, intracerebral event, toxicologic, neurologic, as well as others were entertained. Nursing notes reviewed. Additional history is obtained from the patient's family member. The patient is a 57-year-old male who presented to emergency department for an evaluation of alcohol dependence. The patient has a history of depression and alcohol dependence. He presented to the emergency department this evening with his significant other because he wants to have detox. The patient's been admitted to our facility previously for medical detox. The patient was treated with IV fluids and IV thiamine. His alcohol level was very high in the emergency department and he did not require treatment for withdrawal while he was in the emergency department. I discussed the patient's laboratory and radiographic studies with him. I discussed his case with the emergency department mental health mattress spring encaser as well as the emergency department mattress spring encaser. At this time he would not be a good candidate for outpatient treatment. For this reason I discussed his case with the on-call [facility]. They have agreed to evaluate patient in the emergency department for further management and disposition. Medication Reconcilliation Current Medication List: was personally reviewed by me Blood Pressure Screening Patient's blood pressure: Normal blood pressure Consults Time Called: 1949 Consulting Physician: Dr Crawford Returned Call: 1954 He will evaluate the patient in the emergency department for further management and disposition. Impression Primary Impression: Alcohol intoxication Additional Impressions: Alcohol dependence Diarrhea Scribe Attestation The scribe's documentation has been prepared under my direction and personally reviewed by me in its entirety. I confirm that the note above accurately reflects all work, treatment, procedures, and medical decision making performed by me. Departure Information Dispostion Home / Self-Care Referrals Dm Rachel M.D. (PCP) Patient Instructions My [facility] Problem Qualifiers Primary Impression: Alcohol intoxication Complication of substance-induced condition: uncomplicated Qualified Codes: F10.920 - Alcohol use, unspecified with intoxication, uncomplicated Additional Impressions: Alcohol dependence Substance use status: unspecified alcohol-induced disorder Qualified Codes: F10.29 - Alcohol dependence with unspecified alcohol-induced disorder Diarrhea Diarrhea type: unspecified type Qualified Codes: R19.7 - Diarrhea, unspecified
--- NOTE | 2018-01-24 17:47 | DIAGNOSTIC IMAGING REPORT ---
CHEST ONE VIEW PORTABLE CLINICAL HISTORY: Overdose COMPARISON STUDY: 09/19/2017 FINDINGS: The heart is at the upper limits of normal in size. There are low lung volumes with bronchovascular crowding at the lung bases. There is no overt failure. There are no pleural effusions.[ IMPRESSION: Low lung volumes with hypoventilatory changes at the lung bases Electronically signed by: Catalino Cuevas M.D. 01/24/2018 5:46 PM Dictated Date/Time: 01/24/2018 5:46 PM
[2018-01-24 18:05] LABS: BASO % 0.6 %; BASO ABS # 0.03 K/uL (0-0.2); EOS % 0.8 %; EOS ABS # 0.04 K/uL (0-0.5); HEMATOCRIT 41.5 % (42-52); IG# 0.02 K/uL (0.00-0.02); LYMPH % 26.6 %; LYMPH ABS # 1.26 K/uL (1.2-3.4); MEAN CELL VOLUME 98.1 fL (80-100); MEAN CORPUSCULAR HEMOGLOBIN 35.5 pg (25-34); MEAN CORPUSCULAR HGB CONC 36.1 g/dl (32-36); MEAN PLATELET VOLUME 9.9 fL (7.4-10.4); MONO ABS # 0.38 K/uL (0.11-0.59); NEUT % 63.6 %; NEUT ABS # 3.01 K/uL (1.4-6.5); PLATELET COUNT 157 K/uL (130-400); RED CELL DISTRIBUTION WIDTH SD 57.9 fL (36.4-46.3); WHITE BLOOD COUNT 4.74 K/uL (4.8-10.8)
[2018-01-24] MEDS ORDERED: MILK175C3 PO (18:18)
[2018-01-24] MEDS ORDERED: ISOS60TA25 PO (18:18)
[2018-01-24] MEDS ORDERED: BOSW1TAB3 PO (18:18)
[2018-01-24] MEDS ORDERED: ASPI81TA28 PO (18:18)
[2018-01-24] MEDS ORDERED: PRLSR20 PO (18:18)
[2018-01-24] MEDS ORDERED: LPT/40 PO (18:18)
[2018-01-24] MEDS ORDERED: [UNRECOGNIZED DRUG - CODE] PO (18:18)
[2018-01-24] MEDS ORDERED: CARV12.5 PO (18:18)
[2018-01-24] MEDS ORDERED: CLOP1TAB15 PO (18:18)
[2018-01-24] MEDS ORDERED: CARV25TA2 PO (18:18)
[2018-01-24] MEDS ORDERED: ARGI500C PO (18:18)
[2018-01-24] MEDS ORDERED: THIA250T3 PO (18:18)
[2018-01-24] MEDS ORDERED: GLUC10007 PO (18:18)
[2018-01-24] MEDS ORDERED: LSN40 PO (18:18)
[2018-01-24 19:00] LABS: PTT PATIENT 24.7 SECONDS (21.0-31.0)
[2018-01-24 19:52] LABS: ALBUMIN 2.9 gm/dl (3.4-5.0); ALKALINE PHOSPHATASE 244 U/L (45-117); ALT/SGPT 370 U/L (12-78); BLOOD UREA NITROGEN 3 mg/dl (7-18); CALCIUM 8.1 mg/dl (8.5-10.1); CARBON DIOXIDE 21 mmol/L (21-32); CKMB 1.2 ng/ml (0.5-3.6); CREATININE 0.56 mg/dl (0.60-1.40); GLUCOSE 108 mg/dl (70-99); LIPASE 341 U/L (73-393); TOTAL PROTEIN 7.7 gm/dl (6.4-8.2)
[2018-01-24 20:02] LABS: POTASSIUM 3.3 mmol/L (3.5-5.1); SODIUM 138 mmol/L (136-145)
[2018-01-24 20:10] LABS: AST/SGOT 553 U/L (15-37)
[2018-01-24 21:08] VITALS: Ht 167.6 cm; Wt 98.1 kg
[2018-01-24] MEDS ORDERED: LORAZEPAM 2 MG/ML 1 ML VIAL IV STA (21:09)
[2018-01-24] MEDS ORDERED: ALUMINUM/MAGNESIUM/SIMETH (MAALOX MAX) 30 ML UDC PO PRN (21:15)
[2018-01-24] MEDS ORDERED: NITROGLYCERIN 0.4 MG SL PER TAB CHARGE SL PRN (21:15)
[2018-01-24] MEDS ORDERED: POLYETHYLENE (MIRALAX) 17 GM PACK PO PRN (21:15)
[2018-01-24] MEDS ORDERED: ONDANSETRON INJ 2 MG/ML 2 ML VIAL IV PRN (21:15)
[2018-01-24] MEDS ORDERED: GABAPENTIN 600 MG TAB PO SCH (21:15)
[2018-01-24] MEDS ORDERED: LISINOPRIL 20 MG TAB PO STA (21:21)
[2018-01-24] MEDS ORDERED: THM100 PO (21:21)
[2018-01-24] MEDS ORDERED: POTASSIUM CHLORIDE 20 MEQ TABCR PO STA (21:24)
[2018-01-24] MEDS ORDERED: FoLIC ACID TAB 400 MCG TAB PO STA (21:50)
[2018-01-24] MEDS ORDERED: CARVEDILOL 12.5 MG TAB PO STA (21:50)
[2018-01-24] MEDS ORDERED: CARVEDILOL 25 MG TAB PO STA (21:51)
[2018-01-24] MEDS ORDERED: GABAPENTIN 1200MG LOADING DOSE PO STA (21:53)
--- NOTE | 2018-01-24 22:07 | History and Physical ---
History & Physical Date & Time of Service: January 24, 2018 at 21:27 Chief Complaint: Apfyw-Quotnclan-Edxjybli For 2 Months-Not Eating Primary Care Physician: Dm Rachel M.D. History of Present Illness Source: patient, spouse, clinic records, hospital records Pt is 57 y/o M with PMH ETOH abuse, CAD, ischemic cardiomyopathy, GERD, depression presented to ER with complaint of wanting alcohol detox. Patient reports history several beers daily however reports past 2 months has been drinking 30 beers daily secondary to being depressed from loss of his job. Patient states he would like to have help detoxing from alcohol however is not willing to consider any outpatient therapies. He states "I just need detoxed now, and I can handle it from there. Patient's last drink was 4:30 p.m. today.He has hx DTs in past. States sitting around, not wanting to participate in any activities, not showering. Patient is not currently on any depression medication secondary to his EtOH use. Denies suicidal or homicidal ideations. Patient's states that he has not been eating well and has not drank anything other than beer for the past 2 months. Reports increased urination since his increased beer consumption. History diarrhea for at least 2 months since he has been drinking heavily. Patient had outpatient C. difficile testing on 12/28/17 which was negative. He has not been taking his medications for past month. Denies fever/chills, diaphoresis, N/V, [place], dizziness, syncope, vision changes, neck pain, CP, SOB, orthopnea, palpitations, cough, sore throat , choking, otalgia, rhinorrhea, abdominal pain, paresthesias, weakness, extremity weakness, extremity edema, rashes, dysuria, hematuria, melena, hematochezia, weight loss. Past Medical/Surgical History Medical Problems: (1) Alcohol dependence Status: Chronic (2) C. difficile diarrhea Status: Resolved (3) CAD (coronary artery disease) Permanent Comment: 03/29/2017 - anterior STEMI, s/p JEFFREY to LAD Status: Chronic (4) Hepatitis C Status: Chronic (5) History of GI bleed Permanent Comment: secondary to esophageal ulceration on EGD 11/29/2013 Status: Chronic (6) HTN (hypertension) Status: Chronic (7) Ischemic cardiomyopathy Permanent Comment: EF 30-35% Status: Chronic (8) Obesity Status: Chronic (9) Renal artery stenosis Permanent Comment: questionable Status: Chronic Surgical Problems: (1) H/O esophagogastroduodenoscopy Permanent Comment: 11/29/2013- Large lower esophageal ulceration. No bleeding. Portal hypertensive gastropathy. Erythematous duodenopathy. Normal 2nd part of the duodenum. Status: Chronic (2) Hx of cardiac cath Permanent Comment: 2017 - Stent LAD - [facility] - Dr Mcfarland Status: Resolved Family History Diabetes mellitus BROTHER Social History Smoking Status: Current Every Day Smoker (1ppd) Alcohol Use: 30 beers a day Drug Use: none Marital Status: Housing status: lives with significant other Occupational Status: unemployed Immunizations History of Influenza Vaccine: Yes Influenza Vaccine Date: Aug 03, 2013 History of Tetanus Vaccine?: Yes Tetanus Immunization Date: Sep 20, 2003 History of Hepatitis B Vaccine: Yes Hepatitis Immunization Date: January 22, 2011 Allergies Coded Allergies: No Known Allergies (Unverified , 01/24/18) Home Medications Scheduled Arginine ([id number]), 500 MG PO BID Aspirin (Aspirin Ec), 81 MG PO DAILY Atorvastatin (Lipitor), 40 MG PO DAILY Bnszswwvb-Kehwbmrwrpj-Hskzypj (Glucosamine Complex), 1 TAB PO DAILY Carvedilol (Coreg), 25 MG PO BID Carvedilol (Coreg), 12.5 MG PO BID Clopidogrel (Plavix), 75 MG PO DAILY Folic Acid (Ra Folic Acid), 400 MCG PO DAILY Isosorbide Mononitrate Ext Rel (Imdur Ext Rel), 60 MG PO QAM Lisinopril (Lisinopril), 40 MG PO DAILY Milk Thistle (Silybum Marianum (Milk Thistle), 175 MG PO DAILY Omeprazole (Prilosec), 20 MG PO DAILY Thiamine HCl (Vitamin B-1), 1 TAB PO DAILY Review of Systems See HPI for pertinent positives & negatives. All other systems reviewed and were otherwise negative Physical Exam Vital Signs Date Time Temp Pulse Resp B/P (MAP) Pulse Ox O2 Delivery O2 Flow Rate FiO2 01/24/18 21:08 Room Air 01/24/18 20:44 126 20 145/109 96 Room Air 01/24/18 19:35 118 20 148/98 96 Room Air 01/24/18 18:55 114 114/86 94 Room Air 01/24/18 18:07 115 22 138/109 94 Room Air 01/24/18 17:43 116 01/24/18 17:40 96 Room Air 01/24/18 17:40 96 Room Air 01/24/18 17:06 36.9 130 18 192/97 96 Room Air General Appearance: + obese, + pertinent finding (Pt appears slightly anxious) Head: normocephalic, atraumatic Eyes: normal inspection, PERRL, sclerae normal, + pertinent finding (+nystagmus ) ENT: hearing grossly normal, pharynx normal, + pertinent finding (mucous membranes mildly dry. + ETOH odor on breath) Neck: supple, no JVD, trachea midline Respiratory/Chest: lungs clear, normal breath sounds, no respiratory distress Cardiovascular: no murmur, normal peripheral pulses, + tachycardia (rate 112) Abdomen/GI: normal bowel sounds, non tender, soft Extremities/Musculoskelatal: no calf tenderness, normal capillary refill, no pedal edema, normal range of motion Neurologic/Psych: alert, oriented x 3, + pertinent finding (slightly anxious, no tremors noted at this time) Skin: normal color, warm/dry Diagnostics Laboratory Results Results Past 24 Hours Test 01/24/18 17:49 01/24/18 18:36 01/24/18 19:08 Range/Units White Blood Count 4.74 4.8-10.8 K/uL Red Blood Count 4.23 4.7-6.1 M/uL Hemoglobin 15.0 14.0-18.0 g/dL Hematocrit 41.5 42-52 % Mean Corpuscular Volume 98.1 80-100 fL Mean Corpuscular Hemoglobin 35.5 25-34 pg Mean Corpuscular Hemoglobin Concent 36.1 32-36 g/dl Platelet Count 157 130-400 K/uL Mean Platelet Volume 9.9 7.4-10.4 fL Neutrophils (%) (Auto) 63.6 % Lymphocytes (%) (Auto) 26.6 % Monocytes (%) (Auto) 8.0 % Eosinophils (%) (Auto) 0.8 % Basophils (%) (Auto) 0.6 % Neutrophils # (Auto) 3.01 1.4-6.5 K/uL Lymphocytes # (Auto) 1.26 1.2-3.4 K/uL Monocytes # (Auto) 0.38 0.11-0.59 K/uL Eosinophils # (Auto) 0.04 0-0.5 K/uL Basophils # (Auto) 0.03 0-0.2 K/uL RDW Standard Deviation 57.9 36.4-46.3 fL RDW Coefficient of Variation 16.0 11.5-14.5 % Immature Granulocyte % (Auto) 0.4 % Immature Granulocyte # (Auto) 0.02 0.00-0.02 K/uL Sodium Level 138 136-145 mmol/L Potassium Level 3.3 3.5-5.1 mmol/L Chloride Level 100 98-107 mmol/L Carbon Dioxide Level 21 21-32 mmol/L Anion Gap 17.0 3-11 mmol/L Blood Urea Nitrogen 3 7-18 mg/dl Creatinine 0.56 0.60-1.40 mg/dl Est Creatinine Clear Calc Drug Dose 160.4 ml/min Estimated GFR () 135.0 Estimated GFR (Non- 116.4 BUN/Creatinine Ratio 4.7 10-20 Random Glucose 108 70-99 mg/dl Calcium Level 8.1 8.5-10.1 mg/dl Magnesium Level 2.0 1.8-2.4 mg/dl Total Bilirubin 2.1 0.2-1 mg/dl Direct Bilirubin 1.3 0-0.2 mg/dl Aspartate Amino Transf (AST/SGOT) 553 15-37 U/L Alanine Aminotransferase (ALT/SGPT) 370 12-78 U/L Alkaline Phosphatase 244 45-117 U/L Total Creatine Kinase 108 39-308 U/L Creatine Kinase MB 1.2 0.5-3.6 ng/ml Creatine Kinase MB Ratio 1.1 0-3.0 Troponin I < 0.015 0-0.045 ng/ml Total Protein 7.7 6.4-8.2 gm/dl Albumin 2.9 3.4-5.0 gm/dl Lipase 341 73-393 U/L Chemistry Specimen Hemolysis Ethyl Alcohol mg/dL 328.2 0-3 mg/dl Prothrombin Time 10.5 9.0-12.0 SECONDS Prothromb Time International Ratio 1.0 0.9-1.1 Activated Partial Thromboplast Time 24.7 21.0-31.0 SECONDS Partial Thromboplastin Ratio 1.0 Osmolality 361 280-300 mOsm/kg Salicylates Level 2.8-20 mg/dl Acetaminophen Level 10-30 ug/ml Urine Color YELLOW Urine Appearance CLEAR CLEAR Urine pH 6.5 4.5-7.5 Urine Specific Stephens 1.009 1.000-1.030 Urine Protein NEG NEG Urine Glucose (UA) NEG NEG Urine Ketones NEG NEG Urine Occult Blood NEG NEG Urine Nitrite NEG NEG Urine Bilirubin NEG NEG Urine Urobilinogen NEG NEG Urine Leukocyte Esterase NEG NEG Urine Opiates Screen NEG NEG Urine Methadone, Qualitative NEG NEG Urine Barbiturates NEG NEG Urine Phencyclidine (PCP) Level NEG NEG Ur Amphetamine/Methamphetamine NEG NEG MDMA (Ecstasy) Screen NEG NEG Urine Benzodiazepines Screen NEG NEG Urine Cocaine Metabolite NEG NEG Urine Marijuana (THC) NEG NEG Diagnostic Radiology CXR: IMPRESSION: Low lung volumes with hypoventilatory changes at the lung bases EKG EKG: very poor tracing, sinus tachycardia, incomplete RBBB Impression Assessment and Plan ALCOHOL ABUSE/ETOH WITHDRAWAL Pt chronic alcoholic, increased drinking - been drinking 30 beers daily x 2 months. Hx DT's in past. Last drank at 16:30 today. Today ETOH level: 328. In ER P: 125, BP: 145/109, 95% on RA, afebrile. Pt given thiamine in ER. Pt reports starting to feel shaky. Ativan ordered. -tele to monitor -ETOH withdrawal protocol with gabapentin, Ativan -thiamine, folic acid, and multivitamin daily -IVF -seizure precautions -ETOH cessation discussed with pt. Pt does not want to pursue any inpatient/ outpatient rehab or other out-patient resources ELEVATED LIVER ENZYMES AST: 553 (was 164 on 11/2017). ALT: 370 (202 on 11/2017). Alk phos: 244 (77 on 2017). Total bili: 2.1 (was 0.4). Direct Bili: 1.3 (was 1). co-ags WNL. probable elevation secondary to alcohol use -monitor liver enzymes DIARRHEA Pt with recent negative c-diff test out-patient. Suspect diarrhea from ETOH consumption. No abdominal pain, no leukocytosis/fever. -continue to monitor and consider further workup if no improvement with alcohol cessation HYPOKALEMIA K: 3.3 -replace potassium -monitor electrolytes HTN Hasn't been taking his medications. BP elevated in ER, probable secondary to ETOH withdrawal and med non-compliance -continue lisinopril, carvedilol -continue to monitor SINUS TACHYCARDIA Pulse initially 130 in ER down to 116 after 1L NSS. sats: 95% on RA. No CP/SOB. Suspect secondary to ETOH withdrawal/dehydration -IVF, -gabapentin/ativan prn for withdrawal -continue to monitor DEPRESSION Pt with chronic depression, worsening since losing job 2 months ago. Denies Suicidal/homicidal ideations. -pt denies psych consult and denies any outpatient mental health evaluation/ follow up Hx CAD s/p stent LAD negative troponin. no CP/SOB. Hx echo: 09/2017 EF: 55-60%. -continue lisinopril, carvedilol, Plavix, Imdur GERD -continue PPI DVT Prophylaxis -SCDs Disposition admit tele Full Code Follows with Dr Rachel for routine care Pt was seen with Dr Flores. See addendum Attending addendum Patient was seen and examined. A grade with Ignacia BURRIS, exam, assessment and plan. Pt is 57 y/o M with PMH ETOH abuse, CAD, ischemic cardiomyopathy, GERD, depression presented to ER with complaint of wanting alcohol detox. Patient at bedside. Patient said since October he has been drinking about 30 cans of beers daily. said patient lost his job in October and since October he has been feeling very depressed. said only things patient does for the past 2 months are drinking beers and sleeping. He has not been eating in the last few weeks. Patient was admitted back in September for alcohol intoxication and at that time he said that he would seek for help on discharge by attending [employer] meeting. Patient stated his last drink was this morning. His alcohol level in the ER was over 300. denies any chest pain, palpitation, dizziness, and shortness of breath. General- anxious Head- atraumatic Eyes- +nystagmus ENT- oropharynx clear Neck- supple, no JVD Lungs- clear to auscultation Heart- +tachycardia Abdomen- normal bowel sounds, soft Extremities- Mild tremors b/l UE Neuro- alert, oriented x 3; PERRL, EOMI Skin- warm & dry A/P ALCOHOL ABUSE/ETOH WITHDRAWAL Hx of DT in the past ETOH withdrawal protocol with gabapentin, Ativan On thiamine, folic acid, and multivitamin daily IVF and Banana bag seizure precautions Recommend alcohol rehab treatment on discharge Monitor closely for withdrawn and DT ELEVATED LIVER ENZYMES Related to alcohol abuse AST: 553 / ALT: 370 Monitor liver enzymes avoid hepatotoxic agents Please refer to Ignacia BURRIS documentation for other problems MD Mark Advanced Directives Existing Living Will: No Existing Power of Loin Trimmer: No Resuscitation Status Full code VTE Prophylaxis Will order VTE Prophylaxis: Yes Additional Copies To Dm Rachel M.D.
[2018-01-24 22:26] VITALS: BP 123/97; PULSE 137; TEMP 36.8; O2SAT 95
[2018-01-24] MEDS ORDERED: SODIUM CHLORIDE 0.9% 1000ML 1,000 ML IV SCH (22:30)
[2018-01-24] MEDS: LORAZEPAM 2 MG/ML 1 ML VIAL IV PRN (22:43)
[2018-01-24 23:30] VITALS: BP_SYST 123; BP_SYST 131; BP_DIAS 88; BP_DIAS 97; PULSE 128; PULSE 137; TEMP 36.8; TEMP 37; O2SAT 93; O2SAT 95
[2018-01-25] VITALS (7 sets, daily range): BP systolic 106–130; BP diastolic 74–85; PULSE 71–98; TEMP 37–38; O2SAT 94–98
[2018-01-25] MEDS: LORAZEPAM 2 MG/ML 1 ML VIAL IV PRN ×7 (01:30→17:35)
[2018-01-25] MEDS: GABAPENTIN 600MG Q6H DOSE PO SCH ×2 (05:55→10:55)
[2018-01-25 06:15] LABS: HEMATOCRIT 36.3 % (42-52); HEMOGLOBIN 12.5 g/dL (14.0-18.0); MEAN CELL VOLUME 100.3 fL (80-100); MEAN CORPUSCULAR HEMOGLOBIN 34.5 pg (25-34); MEAN CORPUSCULAR HGB CONC 34.4 g/dl (32-36); MEAN PLATELET VOLUME 9.9 fL (7.4-10.4); PLATELET COUNT 114 K/uL (130-400); RED CELL DISTRIBUTION WIDTH CV 16.5 % (11.5-14.5); RED CELL DISTRIBUTION WIDTH SD 60.3 fL (36.4-46.3)
[2018-01-25 06:47] LABS: ALBUMIN 2.4 gm/dl (3.4-5.0); CREATININE 0.82 mg/dl (0.60-1.40); POTASSIUM 4.4 mmol/L (3.5-5.1)
[2018-01-25 06:49] LABS: PHOSPHORUS 3.6 mg/dl (2.5-4.9); TOTAL PROTEIN 6.4 gm/dl (6.4-8.2)
[2018-01-25] MEDS: CARVEDILOL 12.5 MG TAB PO SCH ×2 (08:27→21:03)
[2018-01-25] MEDS: ISOSORBIDE MONONITRATE 60 MG TABCR PO SCH (08:28)
[2018-01-25] MEDS: LISINOPRIL 40 MG TAB PO SCH (08:28)
[2018-01-25] MEDS: FoLIC ACID TAB 400 MCG TAB PO SCH (08:29)
[2018-01-25] MEDS: ASPIRIN 81 MG ECTAB PO SCH (08:29)
[2018-01-25] MEDS: CLOPIDOGREL BISULFATE 75 MG TAB PO SCH (08:29)
[2018-01-25] MEDS: THIAMINE HCL 100 MG TAB PO SCH (08:29)
[2018-01-25] MEDS: PANTOprazole SOD 40 MG TAB PO SCH (08:30)
[2018-01-25] MEDS: ATORVASTATIN 40 MG TAB PO SCH (08:30)
[2018-01-25] MEDS ORDERED: CARVEDILOL 25 MG TAB PO SCH (09:00)
[2018-01-25] MEDS ORDERED: NICOTINE 21 MG/24 HR TDSY TD SCH (09:00)
[2018-01-25] MEDS: GABAPENTIN 600MG Q8H DOSE PO SCH (21:01)
--- NOTE | 2018-01-25 22:29 | Progress Note ---
Medicine Progress Note Date & Time of Visit: January 25, 2018 at 17:50 . Subjective Admitted for alcohol withdrawal. Experiencing sweats, tremors, nausea. No overt hallucinations, but feels threatened by IV pole at bedside. No chest pain. No cough or shortness of breath. No seizures. . Objective Last 8 Hrs Date Time Temp Pulse Resp B/P (MAP) Pulse Ox O2 Delivery O2 Flow Rate FiO2 01/25/18 19:26 37.0 80 18 125/80 (95) 94 Room Air 01/25/18 16:00 Room Air 01/25/18 15:39 37.6 81 19 117/77 (90) 94 Room Air Physical Exam: General- lying in bed, anxious, no acute distress Eyes-sclerae anicteric Lungs- clear to auscultation; no respiratory distress Cardiovascular- RRR; no murmur or gallop appreciated; no JVD; no pretibial edema Abdomen- + bowel sounds, soft, nontender Extremities- no cyanosis; no calf tenderness Neuro- alert, oriented, resting tremor, no apparent hallucinations Skin- warm & dry . Laboratory Results: Last 24 Hours Test 01/25/18 05:57 White Blood Count 3.40 K/uL Red Blood Count 3.62 M/uL Hemoglobin 12.5 g/dL Hematocrit 36.3 % Mean Corpuscular Volume 100.3 fL Mean Corpuscular Hemoglobin 34.5 pg Mean Corpuscular Hemoglobin Concent 34.4 g/dl RDW Standard Deviation 60.3 fL RDW Coefficient of Variation 16.5 % Platelet Count 114 K/uL Mean Platelet Volume 9.9 fL Sodium Level 142 mmol/L Potassium Level 4.4 mmol/L Chloride Level 108 mmol/L Carbon Dioxide Level 26 mmol/L Anion Gap 7.0 mmol/L Blood Urea Nitrogen 7 mg/dl Creatinine 0.82 mg/dl Est Creatinine Clear Calc Drug Dose 109.6 ml/min Estimated GFR () 115.4 Estimated GFR (Non- 99.6 BUN/Creatinine Ratio 8.2 Random Glucose 186 mg/dl Calcium Level 8.0 mg/dl Phosphorus Level 3.6 mg/dl Magnesium Level 1.8 mg/dl Total Bilirubin 2.2 mg/dl Direct Bilirubin 1.5 mg/dl Aspartate Amino Transf (AST/SGOT) 499 U/L Alanine Aminotransferase (ALT/SGPT) 307 U/L Alkaline Phosphatase 210 U/L Total Protein 6.4 gm/dl Albumin 2.4 gm/dl Globulin 4.0 gm/dl Albumin/Globulin Ratio 0.6 Assessment & Plan ALCOHOL WITHDRAWAL Recently drinking 30 cans of beer per day. Last alcohol consumption approximately 24 hours ago. Having significant withdrawal symptoms. Continue alcohol withdrawal program with thiamine, multivitamins, gabapentin, lorazepam. ALCOHOLISM Discuss counseling when patient is feeling better. ELEVATED LFT'S. Could be secondary to alcoholic hepatitis, hepatitis C, or other etiologies. Follow. CORONARY ARTERY DISEASE No anginal symptoms. Has not been taking cardiac medications recently. Aspirin, clopidogrel, carvedilol, isosorbide mononitrate, lisinopril resumed. CHF Chronic left ventricular systolic heart failure with LVEF 30-35%. Appears to be compensated. Resume carvedilol. Diurese as necessary. HYPERTENSION Has not been taking medications recently. Carvedilol and lisinopril resumed. VTE PROPHYLAXIS No anticoagulants due to alcohol abuse. SCD's. Ambulate as able. DISPOSITION Discharge disposition to be determined. Family Medicine follow-up with Dr. Rachel. . Current Inpatient Medications: Current Inpatient Medications Medications (Trade) Dose Ordered Sig/Johnny Route Start Time Stop Time Status Last Admin Dose Admin Al Hydrox/Mg Hydrox/Simethicone (Maalox Max Susp) 15 ml Q4H PRN PO 01/24/18 21:15 02/23/18 21:14 Ondansetron HCl (Zofran Inj) 4 mg Q6H PRN IV 01/24/18 21:15 02/23/18 21:14 Nitroglycerin (Nitrostat Tab) 0.4 mg UD PRN SL 01/24/18 21:15 02/23/18 21:14 Polyethylene (Miralax Powder Packet) 17 gm DAILY PRN PO 01/24/18 21:15 02/23/18 21:14 Lorazepam (Ativan Inj) PRN Dosing -Active Protocol Q1H PRN IV 01/24/18 21:15 02/23/18 21:14 01/25/18 17:35 2 MG Aspirin (Ecotrin Tab) 81 mg DAILY PO 01/25/18 09:00 02/24/18 08:59 01/25/18 08:29 81 MG Atorvastatin Calcium (Lipitor Tab) 40 mg DAILY PO 01/25/18 09:00 02/24/18 08:59 01/25/18 08:30 40 MG Carvedilol (Coreg Tab) 12.5 mg BID PO 01/25/18 09:00 02/24/18 08:59 01/25/18 21:03 12.5 MG Clopidogrel Bisulfate (plAVix TAB) 75 mg DAILY PO 01/25/18 09:00 02/24/18 08:59 01/25/18 08:29 75 MG Folic Acid (Folvite Tab) 400 mcg DAILY PO 01/25/18 09:00 02/24/18 08:59 01/25/18 08:29 400 MCG Isosorbide Mononitrate (Imdur Ext Rel Tab) 60 mg QAM PO 01/25/18 09:00 02/24/18 08:59 01/25/18 08:28 60 MG Lisinopril (Zestril Tab) 40 mg DAILY PO 01/25/18 09:00 02/24/18 08:59 01/25/18 08:28 40 MG Thiamine HCl (Vitamin B-1 Tab) 100 mg DAILY PO 01/25/18 09:00 02/24/18 08:59 01/25/18 08:29 100 MG Pantoprazole Sodium (Protonix Tab) 40 mg QAM PO 01/25/18 09:00 02/24/18 08:59 01/25/18 08:30 40 MG Gabapentin (Neurontin Tab) 600 mg Q8H PO 01/25/18 22:00 01/26/18 14:01 01/25/18 21:01 600 MG Gabapentin (Neurontin Tab) 600 mg Q12H PO 01/26/18 06:00 01/26/18 18:01 Gabapentin (Neurontin Tab) 600 mg Q24H PO 01/27/18 18:00 01/27/18 18:01
[2018-01-26] VITALS (7 sets, daily range): BP systolic 117–166; BP diastolic 77–107; PULSE 72–101; TEMP 36.6–37.3; O2SAT 93–97
[2018-01-26] MEDS: LORAZEPAM 2 MG/ML 1 ML VIAL IV PRN ×9 (01:11→23:42)
[2018-01-26] MEDS: GABAPENTIN 600MG Q12H DOSE PO SCH ×2 (06:07→17:31)
[2018-01-26 06:08] LABS: HEMATOCRIT 35.7 % (42-52); HEMOGLOBIN 11.9 g/dL (14.0-18.0); MEAN CELL VOLUME 101.4 fL (80-100); MEAN CORPUSCULAR HEMOGLOBIN 33.8 pg (25-34); MEAN CORPUSCULAR HGB CONC 33.3 g/dl (32-36); NUCLEATED RED BLOOD CELL ABS 0.03 K/uL (0-0); RED CELL DISTRIBUTION WIDTH CV 16.4 % (11.5-14.5); RED CELL DISTRIBUTION WIDTH SD 61.4 fL (36.4-46.3); WHITE BLOOD COUNT 3.85 K/uL (4.8-10.8)
[2018-01-26] MEDS: GABAPENTIN 600MG Q8H DOSE PO SCH ×2 (06:08→13:47)
[2018-01-26 06:41] LABS: ALBUMIN 2.4 gm/dl (3.4-5.0); CALCIUM 8.3 mg/dl (8.5-10.1); CREATININE 0.74 mg/dl (0.60-1.40); POTASSIUM 3.9 mmol/L (3.5-5.1)
[2018-01-26 06:46] LABS: TOTAL PROTEIN 6.2 gm/dl (6.4-8.2)
[2018-01-26 06:48] LABS: MEAN PLATELET VOLUME 10.3 fL (7.4-10.4); PLATELET COUNT 98 K/uL (130-400)
[2018-01-26] MEDS: ISOSORBIDE MONONITRATE 60 MG TABCR PO SCH (07:43)
[2018-01-26] MEDS: CLOPIDOGREL BISULFATE 75 MG TAB PO SCH (07:44)
[2018-01-26] MEDS: ASPIRIN 81 MG ECTAB PO SCH (07:44)
[2018-01-26] MEDS: ATORVASTATIN 40 MG TAB PO SCH (07:44)
[2018-01-26] MEDS: FoLIC ACID TAB 400 MCG TAB PO SCH (07:44)
[2018-01-26] MEDS: PANTOprazole SOD 40 MG TAB PO SCH (07:44)
[2018-01-26] MEDS: THIAMINE HCL 100 MG TAB PO SCH (07:44)
[2018-01-26] MEDS: LISINOPRIL 40 MG TAB PO SCH (07:44)
[2018-01-26] MEDS: CARVEDILOL 12.5 MG TAB PO SCH ×2 (07:44→20:11)
[2018-01-26] MEDS ORDERED: MAGNESIUM SULFATE 1GM / D5W 100 ML IV SCH (08:00)
--- NOTE | 2018-01-26 13:24 | Gastrointestinal Consultation ---
Gastrointestinal Consultation Date of Consultation: January 26, 2018 Attending Physician: Dr. Anderson Consulting Physician: Dr. Quintero Reason for Consultation: Cirrhosis, Hep C, worsening LFTs History of Present Illness Patient is a 57 year old male patient of Dr. Rachel with a hx of CAD, GERD, depression, Hep C and increased alcohol intake, presented to the emergency department yesterday requesting detox for alcohol. He had been drinking up to 30 beers/day. On arrival, LFTs were elevated: T Bili 2.2.->3.3, D Bili 1.5, AST 499->546, ALT 307->310, Alk Phos 210. PT = 10.5 and INR=1.0. Patient seen and seen and examined in the progressive care unit while he is sitting up in bed. He is diaphoretic. He answers some questions with appropriate answers but is also talking about leaving for a trip etc, talking about seeing people in his room ( that are not there). When I asked how he decided that he needed help to stop drinking he said because it was "causing problems with people." He denies any GI bleeding, nausea/vomiting, abdominal pain or jaundice. He was seen by our group, during a consult here at [facility] in 2015, at which time EGD/colonoscopy w/o varices but with small polyps. There is no clear evidence of cirrhosis. Platelets have been low since 2013 and there has been fatty liver on imaging since that time as well. However, no suggestion of cirrhosis on any imaging. Past Medical/Surgical History Medical Problems: (1) Abdominal pain Status: Acute (2) Abnormal cardiac enzyme level Status: Acute (3) Acute gastroenteritis Status: Acute (4) Alcohol abuse Status: Acute (5) Alcohol dependence Status: Chronic (6) Alcohol intoxication Status: Acute (7) Alcohol use with intoxication Status: Acute (8) Alcohol withdrawal Status: Acute (9) Alcohol withdrawal Status: Acute (10) C. difficile colitis Status: Acute (11) Chest pain Status: Acute (12) Colitis Status: Acute (13) Dehydration Status: Acute (14) Dehydration Status: Acute (15) Dehydration Status: Acute (16) Diarrhea Status: Acute (17) Diarrhea Status: Acute (18) Diffuse abdominal pain Status: Acute (19) Elevated LFTs Status: Acute (20) Failure of outpatient treatment Status: Acute (21) Hypotension Status: Acute (22) Mood disorder Status: Acute (23) STEMI (ST elevation myocardial infarction) Status: Acute (24) Transaminitis Status: Acute Past Medical History: 1. CAD, ischemic cardiomyopathy, EF 30 - 35% 2. GERD 3. Depression 4. Hep C antibody positive in 2017 5. HTN 6. Renal artery stenosis 8. Obesity Past Surgical History: 1. Cardiac Cath 2016 2. Colonoscopy 01/12/16 for melena, by Dr. Quintero: Diverticulosis in the sigmoid colon. Four 3 to 7 mm polyps in the sigmoid colon. Resected and retrieved. Many small polyps in the rectum. T The distal rectum and anal verge are normal on retroflexion view. 3. EGD 01/12/[address] Quintero: The esophagus was normal. A hiatus hernia was present. The examined duodenum was normal Family History Diabetes mellitus BROTHER Social History Smoking Status: Current Every Day Smoker (1ppd) Alcohol Use: heavy Drug Use: none Marital Status: Housing Status: lives with significant other Occupation Status: unemployed Allergies Coded Allergies: No Known Allergies (Unverified , 01/24/18) Current Medications Home Meds and Scripts Medications Dose Route/Sig Max Daily Dose Days Date Category Vitamin B-1 (Thiamine HCl) 100 Mg Tab 1 Tab PO DAILY 01/24/18 Reported Coreg (Carvedilol) 12.5 Mg Tab 12.5 Mg PO BID 01/24/18 Reported Coreg (Carvedilol) 25 Mg Tab 25 Mg PO BID 01/24/18 Reported Prilosec (Omeprazole) 20 Mg Capcr 20 Mg PO DAILY 01/24/18 Reported Ra Folic Acid (Folic Acid) 400 Mcg Tab 400 Mcg PO DAILY 01/24/18 Reported Glucosamine Complex (Auznlahfy-Azcqjktqiqn-Mhsbuhk) 1 Tab Tab 1 Tab PO DAILY 01/24/18 Reported G-Opiszoow-331 (Arginine) 500 Mg Cap 500 Mg PO BID 01/24/18 Reported Milk Thistle (Milk Thistle (Silybum Marianum) 175 Mg Cap 175 Mg PO DAILY 01/24/18 Reported Aspirin Ec (Aspirin) 81 Mg Tab 81 Mg PO DAILY 01/24/18 Reported Plavix (Clopidogrel Bisulfate) 75 Mg Tab 75 Mg PO DAILY 01/24/18 Reported Lisinopril 40 Mg Tab 40 Mg PO DAILY 01/24/18 Reported Imdur Ext Rel (Isosorbide Mononitrate) 60 Mg Ertab 60 Mg PO QAM 01/24/18 Reported Lipitor (Atorvastatin) 40 Mg Tab 40 Mg PO DAILY 01/24/18 Reported Review of Systems Constitutional: + problem reported (confusion), No fever, No chills, No sweats , No weight loss, No weakness Eyes: No eye pain, No redness ENT: No sore throat, No trouble swallowing, No pain on swallowing Respiratory: No cough, No wheezing, No shortness of breath, No dyspnea on exertion Cardiac: No chest pain, No edema, No palpitations Abdomen: + see HPI, No pain, No nausea, No vomiting Neuro: No memory loss, No weakness, No numbness/tingling, No vertigo, No balance problems Psych: No depression symptoms, No anxiety, No insomnia Heme: No abnormal bleeding/bruising, No night sweats Endo: No excessive thirst, No excessive urination Skin: + jaundice, No rash, No itch, No new/changing skin lesions Physical Exam Date Time Temp Pulse Resp B/P (MAP) Pulse Ox O2 Delivery O2 Flow Rate FiO2 01/26/18 11:31 37.0 90 20 146/93 (110) 96 Room Air 01/26/18 08:42 37.3 80 22 163/106 (125) 01/26/18 08:00 Room Air 01/26/18 07:00 37.1 76 20 166/105 (125) 93 Room Air 01/26/18 05:09 36.6 75 19 158/107 (124) 95 Room Air 01/26/18 04:00 Room Air 01/26/18 00:00 Room Air 01/25/18 23:17 37.1 71 18 130/85 (100) 95 Room Air 01/25/18 20:09 94 Room Air 01/25/18 19:26 37.0 80 18 125/80 (95) 94 Room Air 01/25/18 16:00 Room Air 01/25/18 15:39 37.6 81 19 117/77 (90) 94 Room Air General Appearance: + mild distress (mild aggitation) Eyes: normal inspection, EOMI Neck: supple, no adenopathy, thyroid normal, no JVD Respiratory/Chest: chest non-tender, lungs clear, normal breath sounds, no accessory muscle use Cardiovascular: regular rate, rhythm, no JVD, no murmur Abdomen: normal bowel sounds, non tender, soft, no organomegaly Extremities: normal inspection, no pedal edema, normal capillary refill Neurologic/Psych: alert, normal mood/affect, oriented x 3 Skin: normal color, no jaundice, warm/dry, no rash Laboratory Results Last 24 Hours Test 01/26/18 05:52 White Blood Count 3.85 K/uL Red Blood Count 3.52 M/uL Hemoglobin 11.9 g/dL Hematocrit 35.7 % Mean Corpuscular Volume 101.4 fL Mean Corpuscular Hemoglobin 33.8 pg Mean Corpuscular Hemoglobin Concent 33.3 g/dl RDW Standard Deviation 61.4 fL RDW Coefficient of Variation 16.4 % Platelet Count 98 K/uL Mean Platelet Volume 10.3 fL Nucleated RBC Absolute Count (auto) 0.03 K/uL Nucleated Red Blood Cells % 0.8 % Platelet Estimate DECREASED Sodium Level 142 mmol/L Potassium Level 3.9 mmol/L Chloride Level 109 mmol/L Carbon Dioxide Level 27 mmol/L Anion Gap 6.0 mmol/L Blood Urea Nitrogen 13 mg/dl Creatinine 0.74 mg/dl Est Creatinine Clear Calc Drug Dose 123.0 ml/min Estimated GFR () 120.4 Estimated GFR (Non- 103.8 BUN/Creatinine Ratio 17.2 Random Glucose 107 mg/dl Calcium Level 8.3 mg/dl Magnesium Level 1.7 mg/dl Total Bilirubin 3.3 mg/dl Aspartate Amino Transf (AST/SGOT) 546 U/L Alanine Aminotransferase (ALT/SGPT) 310 U/L Alkaline Phosphatase 203 U/L Ammonia 28.8 umol/L Total Protein 6.2 gm/dl Albumin 2.4 gm/dl Globulin 3.8 gm/dl Albumin/Globulin Ratio 0.6 Impression Patient is a 57 year old male in alcohol detox, also with Hep C, fatty liver, C -Diff diarrhea. Elevated LFTs from alcoholic hepatitis. Plan 1. DF = -3.6, no no indication for prednisolone or Trental. 2. Complete alcohol abstention, 2 gram sodium diet. 3. PO Vancomycin x 10 days. 4. No clear indication for further imaging as no abdominal pain - so do not suspect obstruction and CT in September w/o evidence of cirrhosis or liver lesion. 5. No clear indication for colonoscopy. There was bowel wall thickening on CT in Sep but was likely secondary to C_diff and pt had a complete colonoscopy in 2015. 6. Recommend OP GI f/u for Hep C and alcoholic fatty liver disease - if pt abstains from alcohol. 7. GI will sign off. Please notify us if dramatic rise in Bilirubin or new GI issues. Late entry: Patient was seen and examined on 01/26 with DENNYS Ocasio whose note reflects our findings and plan.
[2018-01-26] MEDS ORDERED: NICOTINE 14 MG/24 HR TDSY TD ONE (14:44)
--- NOTE | 2018-01-26 23:45 | Progress Note ---
Medicine Progress Note Date & Time of Visit: January 26, 2018 at 16:40 . Subjective Recheck for alcohol withdrawal. Ongoing sweats, tremors, nausea. No overt hallucinations. No chest pain. No cough or shortness of breath. No seizures. . Objective Last 8 Hrs Date Time Temp Pulse Resp B/P (MAP) Pulse Ox O2 Delivery O2 Flow Rate FiO2 01/26/18 20:03 Room Air 01/26/18 20:02 37.1 101 147/97 (114) 94 Room Air 01/26/18 16:02 Room Air Physical Exam: General- lying in bed, anxious, no acute distress Lungs- clear to auscultation; no respiratory distress Cardiovascular- RRR; no murmur or gallop appreciated; no JVD; no pretibial edema Abdomen- + bowel sounds, soft, nontender Extremities- no cyanosis; no calf tenderness Neuro- alert, oriented, resting tremor, no apparent hallucinations Skin- warm & dry . Laboratory Results: Last 24 Hours Test 01/26/18 05:52 White Blood Count 3.85 K/uL Red Blood Count 3.52 M/uL Hemoglobin 11.9 g/dL Hematocrit 35.7 % Mean Corpuscular Volume 101.4 fL Mean Corpuscular Hemoglobin 33.8 pg Mean Corpuscular Hemoglobin Concent 33.3 g/dl RDW Standard Deviation 61.4 fL RDW Coefficient of Variation 16.4 % Platelet Count 98 K/uL Mean Platelet Volume 10.3 fL Nucleated RBC Absolute Count (auto) 0.03 K/uL Nucleated Red Blood Cells % 0.8 % Platelet Estimate DECREASED Sodium Level 142 mmol/L Potassium Level 3.9 mmol/L Chloride Level 109 mmol/L Carbon Dioxide Level 27 mmol/L Anion Gap 6.0 mmol/L Blood Urea Nitrogen 13 mg/dl Creatinine 0.74 mg/dl Est Creatinine Clear Calc Drug Dose 123.0 ml/min Estimated GFR () 120.4 Estimated GFR (Non- 103.8 BUN/Creatinine Ratio 17.2 Random Glucose 107 mg/dl Calcium Level 8.3 mg/dl Magnesium Level 1.7 mg/dl Total Bilirubin 3.3 mg/dl Aspartate Amino Transf (AST/SGOT) 546 U/L Alanine Aminotransferase (ALT/SGPT) 310 U/L Alkaline Phosphatase 203 U/L Ammonia 28.8 umol/L Total Protein 6.2 gm/dl Albumin 2.4 gm/dl Globulin 3.8 gm/dl Albumin/Globulin Ratio 0.6 Date/Time Source Procedure Growth Status 01/26/18 06:00 Stool C.difficile Toxin B Gene (PCR) - Final Positive for C. difficile toxin B gene Complete Assessment & Plan ALCOHOL WITHDRAWAL Recently drinking 30 cans of beer per day. Last alcohol consumption approximately 2 days ago. Having significant withdrawal symptoms. Continue alcohol withdrawal program with thiamine, multivitamins, gabapentin, lorazepam. ALCOHOLISM Discuss counseling when patient is feeling better. ELEVATED LFT'S. Total bilirubin has risen to 3.3, AST 546, ALT 310, alkaline phosphatase 203. Could be secondary to alcoholic hepatitis, hepatitis C, or other etiologies. GI consulted. Follow. ANEMIA Hemoglobin has fallen from 15 on admission to 11.9. Probable chronic anemia secondary to alcohol consumption. Check stools for occult blood. Check iron studies, B12, folate. Follow. CORONARY ARTERY DISEASE No anginal symptoms. Has not been taking cardiac medications recently. Aspirin, clopidogrel, carvedilol, isosorbide mononitrate, lisinopril resumed. CHF Chronic left ventricular systolic heart failure with LVEF 30-35%. Appears to be compensated. Resume carvedilol. Diurese as necessary. HYPERTENSION Has not been taking medications recently. Carvedilol and lisinopril resumed. VTE PROPHYLAXIS No anticoagulants due to alcohol abuse. SCD's. Ambulate as able. DISPOSITION Discharge disposition to be determined. Family Medicine follow-up with Dr. Rachel. . Current Inpatient Medications: Current Inpatient Medications Medications (Trade) Dose Ordered Sig/Johnny Route Start Time Stop Time Status Last Admin Dose Admin Al Hydrox/Mg Hydrox/Simethicone (Maalox Max Susp) 15 ml Q4H PRN PO 01/24/18 21:15 02/23/18 21:14 Ondansetron HCl (Zofran Inj) 4 mg Q6H PRN IV 01/24/18 21:15 02/23/18 21:14 Nitroglycerin (Nitrostat Tab) 0.4 mg UD PRN SL 01/24/18 21:15 02/23/18 21:14 Polyethylene (Miralax Powder Packet) 17 gm DAILY PRN PO 01/24/18 21:15 02/23/18 21:14 Lorazepam (Ativan Inj) PRN Dosing -Active Protocol Q1H PRN IV 01/24/18 21:15 02/23/18 21:14 01/26/18 23:42 2 MG Aspirin (Ecotrin Tab) 81 mg DAILY PO 01/25/18 09:00 02/24/18 08:59 01/26/18 07:44 81 MG Atorvastatin Calcium (Lipitor Tab) 40 mg DAILY PO 01/25/18 09:00 02/24/18 08:59 01/26/18 07:44 40 MG Carvedilol (Coreg Tab) 12.5 mg BID PO 01/25/18 09:00 02/24/18 08:59 01/26/18 20:11 12.5 MG Clopidogrel Bisulfate (plAVix TAB) 75 mg DAILY PO 01/25/18 09:00 02/24/18 08:59 01/26/18 07:44 75 MG Folic Acid (Folvite Tab) 400 mcg DAILY PO 01/25/18 09:00 02/24/18 08:59 01/26/18 07:44 400 MCG Isosorbide Mononitrate (Imdur Ext Rel Tab) 60 mg QAM PO 01/25/18 09:00 02/24/18 08:59 01/26/18 07:43 60 MG Lisinopril (Zestril Tab) 40 mg DAILY PO 01/25/18 09:00 02/24/18 08:59 01/26/18 07:44 40 MG Thiamine HCl (Vitamin B-1 Tab) 100 mg DAILY PO 01/25/18 09:00 02/24/18 08:59 01/26/18 07:44 100 MG Pantoprazole Sodium (Protonix Tab) 40 mg QAM PO 01/25/18 09:00 02/24/18 08:59 01/26/18 07:44 40 MG Gabapentin (Neurontin Tab) 600 mg Q24H PO 01/27/18 18:00 01/27/18 18:01 Nicotine (Nicoderm Cq 14MG Patch) 1 patch QAM TD 01/27/18 09:00 02/26/18 08:59 Miscellaneous (Remove Nicoderm Patch) 1 ea HS N/A 01/26/18 21:00 02/25/18 20:59 01/26/18 20:11 1 EA
[2018-01-27] VITALS (8 sets, daily range): BP systolic 128–157; BP diastolic 62–102; PULSE 71–86; TEMP 36.8–37.6; O2SAT 93–98
[2018-01-27] MEDS: LORAZEPAM 2 MG/ML 1 ML VIAL IV PRN ×12 (01:28→23:53)
[2018-01-27 06:00] LABS: HEMATOCRIT 35.3 % (42-52); MEAN CELL VOLUME 101.4 fL (80-100); MEAN CORPUSCULAR HEMOGLOBIN 34.5 pg (25-34); MEAN PLATELET VOLUME 10.5 fL (7.4-10.4); NUCLEATED RED BLOOD CELL ABS 0.05 K/uL (0-0); PLATELET COUNT 103 K/uL (130-400); RED CELL DISTRIBUTION WIDTH CV 16.2 % (11.5-14.5); RED CELL DISTRIBUTION WIDTH SD 59.7 fL (36.4-46.3); WHITE BLOOD COUNT 3.79 K/uL (4.8-10.8)
[2018-01-27 06:34] LABS: ALBUMIN 2.4 gm/dl (3.4-5.0); CALCIUM 7.8 mg/dl (8.5-10.1); CREATININE 0.61 mg/dl (0.60-1.40); POTASSIUM 3.5 mmol/L (3.5-5.1)
[2018-01-27 06:53] LABS: PHOSPHORUS 3.2 mg/dl (2.5-4.9); TOTAL PROTEIN 6.4 gm/dl (6.4-8.2)
[2018-01-27] MEDS ORDERED: MAGNESIUM SULFATE 1GM / D5W 100 ML IV ONE (07:15)
[2018-01-27] MEDS: NICOTINE 14 MG/24 HR TDSY TD SCH (07:42)
[2018-01-27] MEDS: CLOPIDOGREL BISULFATE 75 MG TAB PO SCH (08:00)
[2018-01-27] MEDS: LISINOPRIL 40 MG TAB PO SCH (08:00)
[2018-01-27] MEDS: ATORVASTATIN 40 MG TAB PO SCH (08:00)
[2018-01-27] MEDS: ASPIRIN 81 MG ECTAB PO SCH (08:01)
[2018-01-27] MEDS: THIAMINE HCL 100 MG TAB PO SCH (08:01)
[2018-01-27] MEDS: FoLIC ACID TAB 400 MCG TAB PO SCH (08:01)
[2018-01-27] MEDS: CARVEDILOL 12.5 MG TAB PO SCH ×2 (08:01→21:07)
[2018-01-27] MEDS: ISOSORBIDE MONONITRATE 60 MG TABCR PO SCH (08:01)
[2018-01-27] MEDS: PANTOprazole SOD 40 MG TAB PO SCH (08:01)
[2018-01-27] MEDS: RASPBERRY SYRUP 5 ML UDP PO SCH ×3 (11:42→22:39)
[2018-01-27] MEDS: VANCOMYCIN HCL 125 MG/2.5ML SOLN PO SCH ×3 (11:42→22:39)
[2018-01-27] MEDS ORDERED: GABAPENTIN 600MG X1 DOSE PO SCH (18:00)
--- NOTE | 2018-01-27 22:48 | Progress Note ---
Medicine Progress Note Date & Time of Visit: January 27, 2018 at 10:10 . Subjective Recheck for alcohol withdrawal. Ongoing sweats, tremors, nausea. No overt hallucinations. No chest pain. No cough or shortness of breath. Still having loose stools. No seizures. . Objective Last 8 Hrs Date Time Temp Pulse Resp B/P (MAP) Pulse Ox O2 Delivery O2 Flow Rate FiO2 01/27/18 21:48 37.0 82 26 139/85 (103) 95 Room Air 01/27/18 20:00 Room Air 01/27/18 19:19 37.5 83 18 137/90 (106) 95 Room Air 01/27/18 16:00 Room Air 01/27/18 15:16 37.6 83 20 128/89 (102) 95 Room Air Physical Exam: General- lying in bed, anxious, no acute distress Lungs- clear to auscultation; no respiratory distress Cardiovascular- RRR; no murmur or gallop appreciated; no JVD; no pretibial edema Abdomen- + bowel sounds, soft, nontender Extremities- no cyanosis; no calf tenderness Neuro- alert, oriented, resting tremor, no apparent hallucinations Skin- warm & dry . Laboratory Results: Last 24 Hours Test 01/27/18 05:44 01/27/18 08:00 White Blood Count 3.79 K/uL Red Blood Count 3.48 M/uL Hemoglobin 12.0 g/dL Hematocrit 35.3 % Mean Corpuscular Volume 101.4 fL Mean Corpuscular Hemoglobin 34.5 pg Mean Corpuscular Hemoglobin Concent 34.0 g/dl RDW Standard Deviation 59.7 fL RDW Coefficient of Variation 16.2 % Platelet Count 103 K/uL Mean Platelet Volume 10.5 fL Nucleated RBC Absolute Count (auto) 0.05 K/uL Nucleated Red Blood Cells % 1.4 % Sodium Level 135 mmol/L Potassium Level 3.5 mmol/L Chloride Level 104 mmol/L Carbon Dioxide Level 25 mmol/L Anion Gap 6.0 mmol/L Blood Urea Nitrogen 8 mg/dl Creatinine 0.61 mg/dl Est Creatinine Clear Calc Drug Dose 150.1 ml/min Estimated GFR () 130.3 Estimated GFR (Non- 112.4 BUN/Creatinine Ratio 13.4 Random Glucose 101 mg/dl Calcium Level 7.8 mg/dl Phosphorus Level 3.2 mg/dl Magnesium Level 1.7 mg/dl Iron Level 133 mcg/dl Total Iron Binding Capacity 184 mcg/dl Transferrin 149 mg/dl Transferrin % Saturation 1 % Total Bilirubin 4.0 mg/dl Aspartate Amino Transf (AST/SGOT) 384 U/L Alanine Aminotransferase (ALT/SGPT) 272 U/L Alkaline Phosphatase 185 U/L Total Protein 6.4 gm/dl Albumin 2.4 gm/dl Globulin 4.0 gm/dl Albumin/Globulin Ratio 0.6 Vitamin B12 Level 1190 pg/mL Folate 15.50 ng/mL Stool Occult Blood NEGATIVE Assessment & Plan ALCOHOL WITHDRAWAL Recently drinking 30 cans of beer per day. Last alcohol consumption approximately 23days ago. Having significant withdrawal symptoms. Continue alcohol withdrawal program with thiamine, multivitamins, gabapentin, lorazepam. ALCOHOLISM Discuss counseling when patient is feeling better. ELEVATED LFT'S. Total bilirubin has risen to 4.0; AST 384, ALT 272, alkaline phosphatase 185. Could be secondary to alcoholic hepatitis, hepatitis C, or other etiologies. GI consulted. No indication for prednisolone or pentoxifylline for alcoholic hepatitis at this time. Follow. ANEMIA Hemoglobin has fallen from 15 on admission to 12.0. Probable chronic anemia secondary to alcohol consumption. Stools negative for occult blood. Serum iron 133, B12 1190, folic acid 15.5. Follow. CORONARY ARTERY DISEASE No anginal symptoms. Has not been taking cardiac medications recently. Aspirin, clopidogrel, carvedilol, isosorbide mononitrate, lisinopril resumed. CHF Chronic left ventricular systolic heart failure with LVEF 30-35%. Appears to be compensated. Resume carvedilol. Diurese as necessary. HYPERTENSION Has not been taking medications recently. Carvedilol and lisinopril resumed. CLOSTRIDIUM DIFFICILE (present on admission) Patient has a history of C. difficile and reports diarrhea at home for the last 2 months. Stool specimen for C. difficile ordered in the ED, but specimen not collected and sent to laboratory until morning of 01/26. C. difficile PCR was positive. Treat with oral vancomycin for at least 10 days. VTE PROPHYLAXIS No anticoagulants due to alcohol abuse. SCD's. Ambulate as able. DISPOSITION Discharge disposition to be determined. Family Medicine follow-up with Dr. Rachel. . Current Inpatient Medications: Current Inpatient Medications Medications (Trade) Dose Ordered Sig/Johnny Route Start Time Stop Time Status Last Admin Dose Admin Al Hydrox/Mg Hydrox/Simethicone (Maalox Max Susp) 15 ml Q4H PRN PO 01/24/18 21:15 02/23/18 21:14 Ondansetron HCl (Zofran Inj) 4 mg Q6H PRN IV 01/24/18 21:15 02/23/18 21:14 01/27/18 17:38 4 MG Nitroglycerin (Nitrostat Tab) 0.4 mg UD PRN SL 01/24/18 21:15 02/23/18 21:14 Polyethylene (Miralax Powder Packet) 17 gm DAILY PRN PO 01/24/18 21:15 02/23/18 21:14 Lorazepam (Ativan Inj) PRN Dosing -Active Protocol Q1H PRN IV 01/24/18 21:15 02/23/18 21:14 01/27/18 21:52 2 MG Aspirin (Ecotrin Tab) 81 mg DAILY PO 01/25/18 09:00 02/24/18 08:59 01/27/18 08:01 81 MG Atorvastatin Calcium (Lipitor Tab) 40 mg DAILY PO 01/25/18 09:00 02/24/18 08:59 01/27/18 08:00 40 MG Carvedilol (Coreg Tab) 12.5 mg BID PO 01/25/18 09:00 02/24/18 08:59 01/27/18 21:07 12.5 MG Clopidogrel Bisulfate (plAVix TAB) 75 mg DAILY PO 01/25/18 09:00 02/24/18 08:59 01/27/18 08:00 75 MG Folic Acid (Folvite Tab) 400 mcg DAILY PO 01/25/18 09:00 02/24/18 08:59 01/27/18 08:01 400 MCG Isosorbide Mononitrate (Imdur Ext Rel Tab) 60 mg QAM PO 01/25/18 09:00 02/24/18 08:59 01/27/18 08:01 60 MG Lisinopril (Zestril Tab) 40 mg DAILY PO 01/25/18 09:00 02/24/18 08:59 01/27/18 08:00 40 MG Thiamine HCl (Vitamin B-1 Tab) 100 mg DAILY PO 01/25/18 09:00 02/24/18 08:59 01/27/18 08:01 100 MG Pantoprazole Sodium (Protonix Tab) 40 mg QAM PO 01/25/18 09:00 02/24/18 08:59 01/27/18 08:01 40 MG Nicotine (Nicoderm Cq 14MG Patch) 1 patch QAM TD 01/27/18 09:00 02/26/18 08:59 01/27/18 07:42 1 PATCH Miscellaneous (Remove Nicoderm Patch) 1 ea HS N/A 01/26/18 21:00 02/25/18 20:59 01/27/18 21:00 1 EA Vancomycin HCl (Vancomycin Oral Soln) 125 mg Q6H PO 01/27/18 11:00 02/10/18 10:59 01/27/18 22:39 125 MG Raspberry (Raspberry Syrup 5ml Cup) 5 ml Q6H PO 01/27/18 11:00 02/10/18 10:59 01/27/18 22:39 5 ML
[2018-01-28] MEDS: LORAZEPAM 2 MG/ML 1 ML VIAL IV PRN ×14 (02:23→23:23)
[2018-01-28 03:05] VITALS: BP 106/80; PULSE 81; TEMP 37.3; O2SAT 94
[2018-01-28] MEDS: VANCOMYCIN HCL 125 MG/2.5ML SOLN PO SCH ×4 (04:37→22:19)
[2018-01-28] MEDS: RASPBERRY SYRUP 5 ML UDP PO SCH ×4 (04:37→22:19)
[2018-01-28 06:36] LABS: HEMATOCRIT 36.2 % (42-52); HEMOGLOBIN 12.1 g/dL (14.0-18.0); MEAN CELL VOLUME 102.8 fL (80-100); MEAN CORPUSCULAR HEMOGLOBIN 34.4 pg (25-34); MEAN CORPUSCULAR HGB CONC 33.4 g/dl (32-36); MEAN PLATELET VOLUME 11.1 fL (7.4-10.4); NUCLEATED RED BLOOD CELL ABS 0.04 K/uL (0-0); PLATELET COUNT 136 K/uL (130-400); RED CELL DISTRIBUTION WIDTH CV 16.3 % (11.5-14.5); RED CELL DISTRIBUTION WIDTH SD 60.6 fL (36.4-46.3); WHITE BLOOD COUNT 4.85 K/uL (4.8-10.8)
[2018-01-28 06:54] LABS: ALBUMIN 2.4 gm/dl (3.4-5.0); CREATININE 0.67 mg/dl (0.60-1.40); POTASSIUM 3.7 mmol/L (3.5-5.1)
[2018-01-28 07:00] LABS: TOTAL PROTEIN 6.5 gm/dl (6.4-8.2)
[2018-01-28 07:53] VITALS: BP 104/68; PULSE 76; TEMP 36.9; O2SAT 98
[2018-01-28] MEDS: NICOTINE 14 MG/24 HR TDSY TD SCH (08:10)
[2018-01-28] MEDS: CARVEDILOL 12.5 MG TAB PO SCH ×2 (08:11→21:14)
[2018-01-28] MEDS: ASPIRIN 81 MG ECTAB PO SCH (08:11)
[2018-01-28] MEDS: ISOSORBIDE MONONITRATE 60 MG TABCR PO SCH (08:12)
[2018-01-28] MEDS: LISINOPRIL 40 MG TAB PO SCH (08:12)
[2018-01-28] MEDS: THIAMINE HCL 100 MG TAB PO SCH (08:12)
[2018-01-28] MEDS: CLOPIDOGREL BISULFATE 75 MG TAB PO SCH (08:12)
[2018-01-28] MEDS: ATORVASTATIN 40 MG TAB PO SCH (08:12)
[2018-01-28] MEDS: FoLIC ACID TAB 400 MCG TAB PO SCH (08:12)
[2018-01-28] MEDS: PANTOprazole SOD 40 MG TAB PO SCH (08:12)
[2018-01-28 12:19] VITALS: BP_SYST 108; BP_SYST 115; BP_DIAS 60; BP_DIAS 69; PULSE 69; TEMP 36.8; O2SAT 94
[2018-01-28 15:46] VITALS: BP 155/97; PULSE 81; TEMP 37.5; O2SAT 93
--- NOTE | 2018-01-28 19:13 | Progress Note ---
Medicine Progress Note Date & Time of Visit: January 28, 2018 at 16:10 . Subjective Recheck for alcohol withdrawal. Feels somewhat better. Wants to go home. Still confused. Tremor improved. No overt hallucinations. No chest pain. No cough or shortness of breath. Still having loose stools. No seizures. . Objective Last 8 Hrs Date Time Temp Pulse Resp B/P (MAP) Pulse Ox O2 Delivery O2 Flow Rate FiO2 01/28/18 16:07 Room Air 01/28/18 15:46 37.5 81 24 155/97 (116) 93 Room Air 01/28/18 12:19 36.8 69 18 115/69 (84) 94 01/28/18 12:16 Room Air Physical Exam: General- lying in bed, less anxious, no acute distress Lungs- clear to auscultation; no respiratory distress Cardiovascular- RRR; no murmur or gallop appreciated; no JVD; no pretibial edema Abdomen- + bowel sounds, soft, nontender Extremities- no cyanosis; no calf tenderness Neuro- alert, oriented only to person, resting tremor, no apparent hallucinations Skin- warm & dry . Laboratory Results: Last 24 Hours Test 01/28/18 05:57 White Blood Count 4.85 K/uL Red Blood Count 3.52 M/uL Hemoglobin 12.1 g/dL Hematocrit 36.2 % Mean Corpuscular Volume 102.8 fL Mean Corpuscular Hemoglobin 34.4 pg Mean Corpuscular Hemoglobin Concent 33.4 g/dl RDW Standard Deviation 60.6 fL RDW Coefficient of Variation 16.3 % Platelet Count 136 K/uL Mean Platelet Volume 11.1 fL Nucleated RBC Absolute Count (auto) 0.04 K/uL Nucleated Red Blood Cells % 0.9 % Sodium Level 135 mmol/L Potassium Level 3.7 mmol/L Chloride Level 104 mmol/L Carbon Dioxide Level 25 mmol/L Anion Gap 6.0 mmol/L Blood Urea Nitrogen 9 mg/dl Creatinine 0.67 mg/dl Est Creatinine Clear Calc Drug Dose 135.2 ml/min Estimated GFR () 125.4 Estimated GFR (Non- 108.2 BUN/Creatinine Ratio 14.0 Random Glucose 112 mg/dl Calcium Level 8.0 mg/dl Magnesium Level 1.7 mg/dl Total Bilirubin 4.5 mg/dl Aspartate Amino Transf (AST/SGOT) 279 U/L Alanine Aminotransferase (ALT/SGPT) 237 U/L Alkaline Phosphatase 207 U/L Total Protein 6.5 gm/dl Albumin 2.4 gm/dl Globulin 4.1 gm/dl Albumin/Globulin Ratio 0.6 Assessment & Plan ALCOHOL WITHDRAWAL Recently drinking 30 cans of beer per day. Last alcohol consumption approximately 4 days ago. Experiencing significant withdrawal symptoms. Continue alcohol withdrawal program with thiamine, multivitamins, gabapentin, lorazepam. ALCOHOLISM Discuss counseling when patient is feeling better. ELEVATED LFT'S. Total bilirubin has risen to 4.5; AST 279, ALT 237, alkaline phosphatase 207. GI consulted. Probable alcoholic hepatitis. No indication for prednisolone or pentoxifylline for alcoholic hepatitis at this time. Follow. ANEMIA Hemoglobin has fallen from 15 on admission to 12.1. Probable chronic anemia secondary to alcohol consumption. Stools negative for occult blood. Serum iron 133, B12 1190, folic acid 15.5. Follow. CORONARY ARTERY DISEASE No anginal symptoms. Has not been taking cardiac medications recently. Aspirin, clopidogrel, carvedilol, isosorbide mononitrate, lisinopril resumed. CHF Chronic left ventricular systolic heart failure with LVEF 30-35%. Appears to be compensated. Resume carvedilol. Diurese as necessary. HYPERTENSION Has not been taking medications recently. Carvedilol and lisinopril resumed. CLOSTRIDIUM DIFFICILE (present on admission) Patient has a history of C. difficile and reports diarrhea at home for the last 2 months. Stool specimen for C. difficile ordered in the ED, but specimen not collected and sent to laboratory until morning of 01/26. C. difficile PCR was positive. Treat with oral vancomycin for at least 10 days. VTE PROPHYLAXIS No anticoagulants due to alcohol abuse. SCD's. Ambulate as able. DISPOSITION Patient intermittently insisting to be discharged. He is only oriented to person and is not competent to leave AMA. Discharge disposition to be determined. Family Medicine follow-up with Dr. Rachel. . Current Inpatient Medications: Current Inpatient Medications Medications (Trade) Dose Ordered Sig/Johnny Route Start Time Stop Time Status Last Admin Dose Admin Al Hydrox/Mg Hydrox/Simethicone (Maalox Max Susp) 15 ml Q4H PRN PO 01/24/18 21:15 02/23/18 21:14 Ondansetron HCl (Zofran Inj) 4 mg Q6H PRN IV 01/24/18 21:15 02/23/18 21:14 01/27/18 17:38 4 MG Nitroglycerin (Nitrostat Tab) 0.4 mg UD PRN SL 01/24/18 21:15 02/23/18 21:14 Polyethylene (Miralax Powder Packet) 17 gm DAILY PRN PO 01/24/18 21:15 02/23/18 21:14 Lorazepam (Ativan Inj) PRN Dosing -Active Protocol Q1H PRN IV 01/24/18 21:15 02/23/18 21:14 01/28/18 18:04 2 MG Aspirin (Ecotrin Tab) 81 mg DAILY PO 01/25/18 09:00 02/24/18 08:59 01/28/18 08:11 81 MG Atorvastatin Calcium (Lipitor Tab) 40 mg DAILY PO 01/25/18 09:00 02/24/18 08:59 01/28/18 08:12 40 MG Carvedilol (Coreg Tab) 12.5 mg BID PO 01/25/18 09:00 02/24/18 08:59 01/28/18 08:11 12.5 MG Clopidogrel Bisulfate (plAVix TAB) 75 mg DAILY PO 01/25/18 09:00 02/24/18 08:59 01/28/18 08:12 75 MG Folic Acid (Folvite Tab) 400 mcg DAILY PO 01/25/18 09:00 02/24/18 08:59 01/28/18 08:12 400 MCG Isosorbide Mononitrate (Imdur Ext Rel Tab) 60 mg QAM PO 01/25/18 09:00 02/24/18 08:59 01/28/18 08:12 60 MG Lisinopril (Zestril Tab) 40 mg DAILY PO 01/25/18 09:00 02/24/18 08:59 01/28/18 08:12 40 MG Thiamine HCl (Vitamin B-1 Tab) 100 mg DAILY PO 01/25/18 09:00 02/24/18 08:59 01/28/18 08:12 100 MG Pantoprazole Sodium (Protonix Tab) 40 mg QAM PO 01/25/18 09:00 02/24/18 08:59 01/28/18 08:12 40 MG Nicotine (Nicoderm Cq 14MG Patch) 1 patch QAM TD 01/27/18 09:00 02/26/18 08:59 01/27/18 07:42 1 PATCH Miscellaneous (Remove Nicoderm Patch) 1 ea HS N/A 01/26/18 21:00 02/25/18 20:59 01/27/18 21:00 1 EA Vancomycin HCl (Vancomycin Oral Soln) 125 mg Q6H PO 01/27/18 11:00 02/10/18 10:59 01/28/18 16:29 125 MG Raspberry (Raspberry Syrup 5ml Cup) 5 ml Q6H PO 01/27/18 11:00 02/10/18 10:59 01/28/18 16:30 5 ML
[2018-01-28 19:30] VITALS: BP 102/71; PULSE 61; TEMP 37.6; O2SAT 91
[2018-01-28 23:07] VITALS: BP 120/62; PULSE 92; TEMP 36.9; O2SAT 94
[2018-01-29] MEDS: LORAZEPAM 2 MG/ML 1 ML VIAL IV PRN ×2 (02:11→10:26)
[2018-01-29 03:31] VITALS: BP 121/76; PULSE 76; TEMP 37.1; O2SAT 95
[2018-01-29] MEDS: VANCOMYCIN HCL 125 MG/2.5ML SOLN PO SCH ×4 (04:57→22:38)
[2018-01-29] MEDS: RASPBERRY SYRUP 5 ML UDP PO SCH ×4 (04:57→22:38)
[2018-01-29 06:57] VITALS: BP 130/81; PULSE 75; TEMP 37; O2SAT 94
[2018-01-29 07:23] LABS: HEMATOCRIT 36.3 % (42-52); MEAN CELL VOLUME 104.3 fL (80-100); MEAN CORPUSCULAR HEMOGLOBIN 34.5 pg (25-34); MEAN CORPUSCULAR HGB CONC 33.1 g/dl (32-36); MEAN PLATELET VOLUME 10.7 fL (7.4-10.4); NUCLEATED RED BLOOD CELL ABS 0.04 K/uL (0-0); PLATELET COUNT 157 K/uL (130-400); RED CELL DISTRIBUTION WIDTH CV 16.4 % (11.5-14.5); RED CELL DISTRIBUTION WIDTH SD 61.5 fL (36.4-46.3); WHITE BLOOD COUNT 5.32 K/uL (4.8-10.8)
[2018-01-29 07:59] LABS: ALBUMIN 2.4 gm/dl (3.4-5.0); CALCIUM 8.1 mg/dl (8.5-10.1); CREATININE 0.71 mg/dl (0.60-1.40); POTASSIUM 3.4 mmol/L (3.5-5.1); TOTAL PROTEIN 6.5 gm/dl (6.4-8.2)
[2018-01-29] MEDS: CLOPIDOGREL BISULFATE 75 MG TAB PO SCH (08:40)
[2018-01-29] MEDS: THIAMINE HCL 100 MG TAB PO SCH (08:40)
[2018-01-29] MEDS: FoLIC ACID TAB 400 MCG TAB PO SCH (08:40)
[2018-01-29] MEDS: PANTOprazole SOD 40 MG TAB PO SCH (08:40)
[2018-01-29] MEDS: CARVEDILOL 12.5 MG TAB PO SCH ×2 (08:40→20:13)
[2018-01-29] MEDS: ATORVASTATIN 40 MG TAB PO SCH (08:40)
[2018-01-29] MEDS: NICOTINE 14 MG/24 HR TDSY TD SCH (08:40)
[2018-01-29] MEDS: ISOSORBIDE MONONITRATE 60 MG TABCR PO SCH (08:40)
[2018-01-29] MEDS: ASPIRIN 81 MG ECTAB PO SCH (08:41)
[2018-01-29] MEDS: LISINOPRIL 40 MG TAB PO SCH (08:41)
[2018-01-29] MEDS ORDERED: POTASSIUM CHLORIDE 20 MEQ TABCR PO ONE (09:45)
[2018-01-29 12:00] VITALS: BP 135/89; PULSE 90; TEMP 37.2; O2SAT 96
[2018-01-29] MEDS: LORAZEPAM 1 MG TAB PO PRN (13:39)
[2018-01-29 15:31] VITALS: BP 94/58; PULSE 82; TEMP 37.2; O2SAT 92
--- NOTE | 2018-01-29 19:31 | Progress Note ---
Medicine Progress Note Date & Time of Visit: January 29, 2018 at 15:50 . Subjective Recheck for alcohol withdrawal. Better. Less confused. Tremor improved. No overt hallucinations. No chest pain. No cough or shortness of breath. Still having loose stools. No seizures. visiting. . Objective Last 8 Hrs Date Time Temp Pulse Resp B/P (MAP) Pulse Ox O2 Delivery O2 Flow Rate FiO2 01/29/18 16:00 Room Air 01/29/18 15:31 37.2 82 20 94/58 (70) 92 Room Air 01/29/18 12:00 37.2 90 22 135/89 (104) 96 Room Air 01/29/18 12:00 Room Air Physical Exam: General- lying in bed, less anxious, no acute distress Eyes- sclerae icteric Lungs- clear to auscultation; no respiratory distress Cardiovascular- RRR; no murmur or gallop appreciated; no JVD; no pretibial edema Abdomen- + bowel sounds, soft, nontender Extremities- no cyanosis; no calf tenderness Neuro- alert, oriented essentially x 3, able to name current and last president ; able to recall 3 items; resting tremor, no apparent hallucinations Skin- warm & dry . Laboratory Results: Last 24 Hours Test 01/29/18 06:51 White Blood Count 5.32 K/uL Red Blood Count 3.48 M/uL Hemoglobin 12.0 g/dL Hematocrit 36.3 % Mean Corpuscular Volume 104.3 fL Mean Corpuscular Hemoglobin 34.5 pg Mean Corpuscular Hemoglobin Concent 33.1 g/dl RDW Standard Deviation 61.5 fL RDW Coefficient of Variation 16.4 % Platelet Count 157 K/uL Mean Platelet Volume 10.7 fL Nucleated RBC Absolute Count (auto) 0.04 K/uL Nucleated Red Blood Cells % 0.8 % Prothrombin Time 10.6 SECONDS Prothromb Time International Ratio 1.0 Sodium Level 136 mmol/L Potassium Level 3.4 mmol/L Chloride Level 104 mmol/L Carbon Dioxide Level 24 mmol/L Anion Gap 8.0 mmol/L Blood Urea Nitrogen 10 mg/dl Creatinine 0.71 mg/dl Est Creatinine Clear Calc Drug Dose 128.9 ml/min Estimated GFR () 122.4 Estimated GFR (Non- 105.6 BUN/Creatinine Ratio 14.1 Random Glucose 98 mg/dl Calcium Level 8.1 mg/dl Magnesium Level 1.8 mg/dl Total Bilirubin 5.1 mg/dl Aspartate Amino Transf (AST/SGOT) 224 U/L Alanine Aminotransferase (ALT/SGPT) 200 U/L Alkaline Phosphatase 190 U/L Total Protein 6.5 gm/dl Albumin 2.4 gm/dl Globulin 4.1 gm/dl Albumin/Globulin Ratio 0.6 Assessment & Plan ALCOHOL WITHDRAWAL Recently drinking 30 cans of beer per day. Last alcohol consumption approximately 5 days ago. Experienced significant withdrawal symptoms. Alcohol withdrawal protocol implemented with thiamine, multivitamins, gabapentin , lorazepam. Has finished gabapentin; requiring less lorazepam. ALCOHOLISM Discuss counseling when patient is feeling better. ELEVATED LFT'S. Total bilirubin has risen to 5.1; AST 224, ALT 200, alkaline phosphatase 190. GI consulted. Probable alcoholic hepatitis. No indication for prednisolone or pentoxifylline for alcoholic hepatitis at this time. Follow. ANEMIA Hemoglobin has fallen from 15 on admission to 12.0. Probable chronic anemia secondary to alcohol consumption. Stools negative for occult blood. Serum iron 133, B12 1190, folic acid 15.5. Follow. CORONARY ARTERY DISEASE No anginal symptoms. Has not been taking cardiac medications recently. Aspirin, clopidogrel, carvedilol, isosorbide mononitrate, lisinopril resumed. CHF Chronic left ventricular systolic heart failure with LVEF 30-35%. Appears to be compensated. Resume carvedilol. Diurese as necessary. HYPERTENSION Has not been taking medications recently. Carvedilol and lisinopril resumed. CLOSTRIDIUM DIFFICILE (present on admission) Patient has a history of C. difficile and reports diarrhea at home for the last 2 months. Stool specimen for C. difficile ordered in the ED, but specimen not collected and sent to laboratory until morning of 01/26. C. difficile PCR was positive. Treat with oral vancomycin for at least 10 days. VTE PROPHYLAXIS No anticoagulants due to alcohol abuse. SCD's. Ambulate as able. DISPOSITION Discharge disposition to be determined. Inpatient D&A rehab would be helpful, but patient will probably decline. Family Medicine follow-up with Dr. Rachel. visiting and given update. . Current Inpatient Medications: Current Inpatient Medications Medications (Trade) Dose Ordered Sig/Johnny Route Start Time Stop Time Status Last Admin Dose Admin Al Hydrox/Mg Hydrox/Simethicone (Maalox Max Susp) 15 ml Q4H PRN PO 01/24/18 21:15 02/23/18 21:14 Ondansetron HCl (Zofran Inj) 4 mg Q6H PRN IV 01/24/18 21:15 02/23/18 21:14 01/27/18 17:38 4 MG Nitroglycerin (Nitrostat Tab) 0.4 mg UD PRN SL 01/24/18 21:15 02/23/18 21:14 Polyethylene (Miralax Powder Packet) 17 gm DAILY PRN PO 01/24/18 21:15 02/23/18 21:14 Lorazepam (Ativan Inj) PRN Dosing -Active Protocol Q1H PRN IV 01/24/18 21:15 02/23/18 21:14 01/29/18 10:26 1 MG Aspirin (Ecotrin Tab) 81 mg DAILY PO 01/25/18 09:00 02/24/18 08:59 01/29/18 08:41 81 MG Atorvastatin Calcium (Lipitor Tab) 40 mg DAILY PO 01/25/18 09:00 02/24/18 08:59 01/29/18 08:40 40 MG Carvedilol (Coreg Tab) 12.5 mg BID PO 01/25/18 09:00 02/24/18 08:59 01/29/18 08:40 12.5 MG Clopidogrel Bisulfate (plAVix TAB) 75 mg DAILY PO 01/25/18 09:00 02/24/18 08:59 01/29/18 08:40 75 MG Folic Acid (Folvite Tab) 400 mcg DAILY PO 01/25/18 09:00 02/24/18 08:59 01/29/18 08:40 400 MCG Isosorbide Mononitrate (Imdur Ext Rel Tab) 60 mg QAM PO 01/25/18 09:00 02/24/18 08:59 01/29/18 08:40 60 MG Lisinopril (Zestril Tab) 40 mg DAILY PO 01/25/18 09:00 02/24/18 08:59 01/29/18 08:41 40 MG Thiamine HCl (Vitamin B-1 Tab) 100 mg DAILY PO 01/25/18 09:00 02/24/18 08:59 01/29/18 08:40 100 MG Pantoprazole Sodium (Protonix Tab) 40 mg QAM PO 01/25/18 09:00 02/24/18 08:59 01/29/18 08:40 40 MG Nicotine (Nicoderm Cq 14MG Patch) 1 patch QAM TD 01/27/18 09:00 02/26/18 08:59 01/29/18 08:40 1 PATCH Miscellaneous (Remove Nicoderm Patch) 1 ea HS N/A 01/26/18 21:00 02/25/18 20:59 01/27/18 21:00 1 EA Vancomycin HCl (Vancomycin Oral Soln) 125 mg Q6H PO 01/27/18 11:00 02/10/18 10:59 01/29/18 17:22 125 MG Raspberry (Raspberry Syrup 5ml Cup) 5 ml Q6H PO 01/27/18 11:00 02/10/18 10:59 01/29/18 17:22 5 ML Potassium Chloride (Klor-Con Tab) 20 meq BID PO 01/29/18 21:00 02/28/18 20:59 Lorazepam (Ativan Tab) PRN Dosing -Active Protocol UD PRN PO 01/29/18 13:30 02/28/18 13:29 01/29/18 13:39 1 MG
[2018-01-29 19:38] VITALS: BP 122/77; PULSE 76; TEMP 37.5; O2SAT 96
[2018-01-29] MEDS ORDERED: NURSING VERBAL MED ORDER ONE (20:00)
[2018-01-29] MEDS: POTASSIUM CHLORIDE 20 MEQ TABCR PO SCH (20:13)
[2018-01-29] MEDS ORDERED: NICOTINE 14 MG/24 HR TDSY TD SCH (21:00)
[2018-01-30 00:06] VITALS: BP 146/93; PULSE 72; TEMP 37; O2SAT 96
[2018-01-30 04:00] VITALS: BP 153/93; PULSE 70; TEMP 37.1; O2SAT 96
[2018-01-30] MEDS: VANCOMYCIN HCL 125 MG/2.5ML SOLN PO SCH ×4 (05:54→19:27)
[2018-01-30] MEDS: RASPBERRY SYRUP 5 ML UDP PO SCH ×4 (05:54→19:27)
[2018-01-30 06:58] LABS: HEMATOCRIT 36.1 % (42-52); HEMOGLOBIN 12.1 g/dL (14.0-18.0); MEAN CORPUSCULAR HEMOGLOBIN 34.9 pg (25-34); MEAN CORPUSCULAR HGB CONC 33.5 g/dl (32-36); MEAN PLATELET VOLUME 10.5 fL (7.4-10.4); PLATELET COUNT 179 K/uL (130-400); RED CELL DISTRIBUTION WIDTH CV 16.5 % (11.5-14.5); RED CELL DISTRIBUTION WIDTH SD 61.1 fL (36.4-46.3); WHITE BLOOD COUNT 4.74 K/uL (4.8-10.8)
[2018-01-30 07:11] VITALS: BP 140/88; PULSE 67; TEMP 37; O2SAT 95
[2018-01-30 07:20] LABS: ALBUMIN 2.4 gm/dl (3.4-5.0); CALCIUM 8.1 mg/dl (8.5-10.1); CREATININE 0.71 mg/dl (0.60-1.40); POTASSIUM 3.8 mmol/L (3.5-5.1)
[2018-01-30 07:31] LABS: TOTAL PROTEIN 6.3 gm/dl (6.4-8.2)
[2018-01-30] MEDS: CLOPIDOGREL BISULFATE 75 MG TAB PO SCH (07:47)
[2018-01-30] MEDS: FoLIC ACID TAB 400 MCG TAB PO SCH (07:47)
[2018-01-30] MEDS: ATORVASTATIN 40 MG TAB PO SCH (07:47)
[2018-01-30] MEDS: ASPIRIN 81 MG ECTAB PO SCH (07:48)
[2018-01-30] MEDS: CARVEDILOL 12.5 MG TAB PO SCH (07:48)
[2018-01-30] MEDS: ISOSORBIDE MONONITRATE 60 MG TABCR PO SCH (07:48)
[2018-01-30] MEDS: PANTOprazole SOD 40 MG TAB PO SCH (07:48)
[2018-01-30] MEDS: THIAMINE HCL 100 MG TAB PO SCH (07:48)
[2018-01-30] MEDS: LISINOPRIL 40 MG TAB PO SCH (07:48)
[2018-01-30] MEDS: POTASSIUM CHLORIDE 20 MEQ TABCR PO SCH ×2 (07:49→19:27)
[2018-01-30 11:44] VITALS: BP 157/99; PULSE 79; TEMP 36.4; O2SAT 96
[2018-01-30 16:24] VITALS: BP 133/89; PULSE 85; TEMP 37; O2SAT 97
[2018-01-30] MEDS: LORAZEPAM 1 MG TAB PO PRN (17:01)
--- NOTE | 2018-01-30 18:58 | Progress Note ---
Medicine Progress Note Date & Time of Visit: January 30, 2018 at 18:57 . Subjective Doing well. No tremors, sweats, nausea, vomiting, hallucinations. No chest pain, cough, shortness of breath. Diarrhea improved. Ambulating. . Objective Last 8 Hrs Date Time Temp Pulse Resp B/P (MAP) Pulse Ox O2 Delivery O2 Flow Rate FiO2 01/30/18 16:24 37.0 85 20 133/89 (104) 97 Room Air 01/30/18 16:00 Room Air 01/30/18 12:00 Room Air 01/30/18 11:44 36.4 79 18 157/99 (118) 96 Physical Exam: General- lying in bed, no acute distress Eyes- sclerae icteric Lungs- clear to auscultation; no respiratory distress Cardiovascular- RRR; no murmur or gallop appreciated; no JVD; no pretibial edema Abdomen- + bowel sounds, soft, nontender Extremities- no cyanosis; no calf tenderness Neuro- alert, oriented x 3 Skin- warm & dry . Laboratory Results: Last 24 Hours Test 01/30/18 06:26 White Blood Count 4.74 K/uL Red Blood Count 3.47 M/uL Hemoglobin 12.1 g/dL Hematocrit 36.1 % Mean Corpuscular Volume 104.0 fL Mean Corpuscular Hemoglobin 34.9 pg Mean Corpuscular Hemoglobin Concent 33.5 g/dl RDW Standard Deviation 61.1 fL RDW Coefficient of Variation 16.5 % Platelet Count 179 K/uL Mean Platelet Volume 10.5 fL Sodium Level 135 mmol/L Potassium Level 3.8 mmol/L Chloride Level 105 mmol/L Carbon Dioxide Level 22 mmol/L Anion Gap 8.0 mmol/L Blood Urea Nitrogen 11 mg/dl Creatinine 0.71 mg/dl Est Creatinine Clear Calc Drug Dose 128.9 ml/min Estimated GFR () 122.4 Estimated GFR (Non- 105.6 BUN/Creatinine Ratio 15.1 Random Glucose 112 mg/dl Calcium Level 8.1 mg/dl Total Bilirubin 4.3 mg/dl Aspartate Amino Transf (AST/SGOT) 210 U/L Alanine Aminotransferase (ALT/SGPT) 190 U/L Alkaline Phosphatase 179 U/L Total Protein 6.3 gm/dl Albumin 2.4 gm/dl Globulin 3.9 gm/dl Albumin/Globulin Ratio 0.6 Assessment & Plan ALCOHOL WITHDRAWAL Recently drinking 30 cans of beer per day. Last alcohol consumption approximately 6 days ago. Experienced significant withdrawal symptoms. Alcohol withdrawal protocol implemented with thiamine, multivitamins, gabapentin , lorazepam. Has completed protocol and is doing well. ALCOHOLISM Counseling with AA and other resources advised. ELEVATED LFT'S Total bilirubin [place] as high as 5.1 it was down to 4.3 day of discharge. Transaminases were in the 200s. GI consulted. Probable alcoholic hepatitis. Also has history of hepatitis C. No indication for prednisolone or pentoxifylline for alcoholic hepatitis at this time. Follow. ANEMIA Hemoglobin has fallen from 15 on admission to 12.1. Probable chronic anemia secondary to alcohol consumption. Stools negative for occult blood. Serum iron 133, B12 1190, folic acid 15.5. Follow. CORONARY ARTERY DISEASE No anginal symptoms. Has not been taking cardiac medications recently. Aspirin, clopidogrel, carvedilol, isosorbide mononitrate, lisinopril resumed. CHF Chronic left ventricular systolic heart failure with LVEF 30-35%. Appears to be compensated. Resumed carvedilol. Diurese as necessary. HYPERTENSION Has not been taking medications recently. Carvedilol and lisinopril resumed. CLOSTRIDIUM DIFFICILE (present on admission) Patient has a history of C. difficile and reports diarrhea at home for the last 2 months. Stool specimen for C. difficile ordered in the ED, but specimen not collected and sent to laboratory until morning of 01/26. C. difficile PCR was positive. Treatment initiated with vancomycin. Patient will not be able to afford prescription for vancomycin, so discharged on metronidazole to complete course of therapy. Metronidazole dose was decreased to 250 mg 3 times daily in light of his underlying liver disease. VTE PROPHYLAXIS No anticoagulants due to alcohol abuse. SCD's. Ambulate as able. DISPOSITION Discharge to home. Given info on counseling resources for alcoholism. Family Medicine follow-up with Dr. Rachel. contacted by phone given update. . Current Inpatient Medications: Current Inpatient Medications Medications (Trade) Dose Ordered Sig/Johnny Route Start Time Stop Time Status Last Admin Dose Admin Al Hydrox/Mg Hydrox/Simethicone (Maalox Max Susp) 15 ml Q4H PRN PO 01/24/18 21:15 02/23/18 21:14 Ondansetron HCl (Zofran Inj) 4 mg Q6H PRN IV 01/24/18 21:15 02/23/18 21:14 01/27/18 17:38 4 MG Nitroglycerin (Nitrostat Tab) 0.4 mg UD PRN SL 01/24/18 21:15 02/23/18 21:14 Polyethylene (Miralax Powder Packet) 17 gm DAILY PRN PO 01/24/18 21:15 02/23/18 21:14 Lorazepam (Ativan Inj) PRN Dosing -Active Protocol Q1H PRN IV 01/24/18 21:15 02/23/18 21:14 01/29/18 10:26 1 MG Aspirin (Ecotrin Tab) 81 mg DAILY PO 01/25/18 09:00 02/24/18 08:59 01/30/18 07:48 81 MG Atorvastatin Calcium (Lipitor Tab) 40 mg DAILY PO 01/25/18 09:00 02/24/18 08:59 01/30/18 07:47 40 MG Carvedilol (Coreg Tab) 12.5 mg BID PO 01/25/18 09:00 02/24/18 08:59 01/30/18 07:48 12.5 MG Clopidogrel Bisulfate (plAVix TAB) 75 mg DAILY PO 01/25/18 09:00 02/24/18 08:59 01/30/18 07:47 75 MG Folic Acid (Folvite Tab) 400 mcg DAILY PO 01/25/18 09:00 02/24/18 08:59 01/30/18 07:47 400 MCG Isosorbide Mononitrate (Imdur Ext Rel Tab) 60 mg QAM PO 01/25/18 09:00 02/24/18 08:59 01/30/18 07:48 60 MG Lisinopril (Zestril Tab) 40 mg DAILY PO 01/25/18 09:00 02/24/18 08:59 01/30/18 07:48 40 MG Thiamine HCl (Vitamin B-1 Tab) 100 mg DAILY PO 01/25/18 09:00 02/24/18 08:59 01/30/18 07:48 100 MG Pantoprazole Sodium (Protonix Tab) 40 mg QAM PO 01/25/18 09:00 02/24/18 08:59 01/30/18 07:48 40 MG Vancomycin HCl (Vancomycin Oral Soln) 125 mg Q6H PO 01/27/18 11:00 02/10/18 10:59 01/30/18 16:57 125 MG Raspberry (Raspberry Syrup 5ml Cup) 5 ml Q6H PO 01/27/18 11:00 02/10/18 10:59 01/30/18 16:57 5 ML Potassium Chloride (Klor-Con Tab) 20 meq BID PO 01/29/18 21:00 02/28/18 20:59 01/30/18 07:49 20 MEQ Lorazepam (Ativan Tab) PRN Dosing -Active Protocol UD PRN PO 01/29/18 13:30 02/28/18 13:29 01/30/18 17:01 1 MG Nicotine (Nicoderm Cq 14MG Patch) 1 patch HS TD 01/29/18 21:00 02/28/18 20:59 01/29/18 20:13 1 PATCH Miscellaneous (Remove Nicoderm Patch) 1 ea DAILY@2058 N/A 01/29/18 20:59 02/28/18 20:58 01/29/18 20:11 1 EA
[2018-01-30] MEDS ORDERED: METR1TAB4 PO (19:04)
--- NOTE | 2018-01-30 19:08 | Discharge Instructions ---
Discharge Instructions Date of Service January 30, 2018. Admission Reason for Admission: alcohol withdrawal, diarrhea . Discharge Discharge Diagnosis / Problem: alcohol withdrawal, C difficile diarrhea Discharge Goals Goal(s): Decrease discomfort, Improve function, Increase independence, Improve disease control Activity Recommendations Activity Limitations: resume your previous activity Driving or Machine Use: Do not drive if you have been drinking. . Instructions / Follow-Up Instructions / Follow-Up APPOINTMENTS: FAMILY MEDICINE 02/02/2018 2:00 PM Ally Black MD (covering for Dr. Rachel) OTHER INSTRUCTIONS: Take metronidazole (Flagyl) 250 mg 3 times a day for 7 days. Do not drink any alcoholic beverages- you don't want to relapse. Please contact AA and arrange for outpatient counseling. Seek medical attention if you have: * temperature above 101 * chest pain or trouble breathing * abdominal pain, nausea, vomiting * persistent diarrhea, dark stools or bloody stools * any unanswered questions or concerns Call 911 if symptoms are severe. Call if you have any questions or problems. My cell # is [phone]. You can also reach a [facility] hospitalist on duty at [facility] 24 hours a day by calling [phone]. Please take good care of yourself. Mateo Anderson . Current Hospital Diet Patient's current hospital diet: Regular Diet, Low Lactose Diet, Low Fat Diet Discharge Diet Recommended Diet: AHA Diet (Heart Healthy) Pending Studies Studies pending at discharge: no Medical Emergencies . Who to Call and When: Medical Emergencies: If at any time you feel your situation is an emergency, please call 911 immediately. . Non-Emergent Contact Non-Emergency issues call your: Primary Care Provider, Credentialing Analyst, Hospital Doctor . . "Provider Documentation" section prepared by Mateo Anderson. .
--- NOTE | 2018-01-31 21:39 | Discharge Summary ---
Discharge Summary Date of Service Discharge Summary Admission Date: January 24, 2018 at 21:04 Discharge Date: January 30, 2018 Discharge Disposition: Home Principal Diagnosis: alcohol withdrawal with delirium OTHER ACUTE / SECONDARY DIAGNOSES: alcoholic hepatitis thrombocytopenia anemia Clostridium difficile colitis (present on admission) . Secondary Diagnoses/Problems: Chronic and Resolved Medical Problems: (1) Alcohol dependence Status: Chronic (2) C. difficile diarrhea Status: Resolved (3) CAD (coronary artery disease) Permanent Comment: 03/29/2017 - anterior STEMI, s/p JEFFREY to LAD Status: Chronic (4) Hepatitis C Status: Chronic (5) History of GI bleed Permanent Comment: secondary to esophageal ulceration on EGD 11/29/2013 Status: Chronic (6) HTN (hypertension) Status: Chronic (7) Ischemic cardiomyopathy Permanent Comment: EF 30-35% Status: Chronic (8) Obesity Status: Chronic (9) Renal artery stenosis Permanent Comment: questionable Status: Chronic Surgical Problems: (1) H/O esophagogastroduodenoscopy Permanent Comment: 11/29/2013- Large lower esophageal ulceration. No bleeding. Portal hypertensive gastropathy. Erythematous duodenopathy. Normal 2nd part of the duodenum. Status: Chronic (2) Hx of cardiac cath Permanent Comment: 2017 - Stent LAD - [facility] - Dr Mcfarland . Procedures: cardiac monitoring IV meds . Pending Studies/Follow-Up: Please check CBC and comprehensive metabolic profile in clinic. . Medication Reconciliation New Medications: Metronidazole (Flagyl) 250 Mg Tab 250 MG PO TID, #21 TAB Continued Medications: Aspirin (Aspirin Ec) 81 Mg Tab 81 MG PO DAILY Atorvastatin (Lipitor) 40 Mg Tab 40 MG PO DAILY Carvedilol (Coreg) 12.5 Mg Tab 12.5 MG PO BID Clopidogrel (Plavix) 75 Mg Tab 75 MG PO DAILY Folic Acid (Ra Folic Acid) 400 Mcg Tab 400 MCG PO DAILY Isosorbide Mononitrate Ext Rel (Imdur Ext Rel) 60 Mg Ertab 60 MG PO QAM Lisinopril (Lisinopril) 40 Mg Tab 40 MG PO DAILY Omeprazole (Prilosec) 20 Mg Capcr 20 MG PO DAILY Thiamine HCl (Vitamin B-1) 100 Mg Tab 1 TAB PO DAILY Admission Information HPI (per Admitting provider): Pt is 57 y/o M with PMH ETOH abuse, CAD, ischemic cardiomyopathy, GERD, depression presented to ER with complaint of wanting alcohol detox. Patient reports history several beers daily however reports past 2 months has been drinking 30 beers daily secondary to being depressed from loss of his job. Patient states he would like to have help detoxing from alcohol however is not willing to consider any outpatient therapies. He states "I just need detoxed now, and I can handle it from there. Patient's last drink was 4:30 p.m. today.He has hx DTs in past. States sitting around, not wanting to participate in any activities, not showering. Patient is not currently on any depression medication secondary to his EtOH use. Denies suicidal or homicidal ideations. Patient's states that he has not been eating well and has not drank anything other than beer for the past 2 months. Reports increased urination since his increased beer consumption. History diarrhea for at least 2 months since he has been drinking heavily. Patient had outpatient C. difficile testing on 12/28/17 which was negative. He has not been taking his medications for past month. Denies fever/chills, diaphoresis, N/V, [place], dizziness, syncope, vision changes, neck pain, CP, SOB, orthopnea, palpitations, cough, sore throat , choking, otalgia, rhinorrhea, abdominal pain, paresthesias, weakness, extremity weakness, extremity edema, rashes, dysuria, hematuria, melena, hematochezia, weight loss. . Physical Exam (per Admitting): General Appearance: + obese, + pertinent finding (Pt appears slightly anxious) Head: normocephalic, atraumatic Eyes: normal inspection, PERRL, sclerae normal, + pertinent finding (+ nystagmus) ENT: hearing grossly normal, pharynx normal, + pertinent finding (mucous membranes mildly dry. + ETOH odor on breath) Neck: supple, no JVD, trachea midline Respiratory/Chest: lungs clear, normal breath sounds, no respiratory distress Cardiovascular: no murmur, normal peripheral pulses, + tachycardia (rate 112 ) Abdomen/GI: normal bowel sounds, non tender, soft Extremities/Musculoskelatal: no calf tenderness, normal capillary refill, no pedal edema, normal range of motion Neurologic/Psych: alert, oriented x 3, + pertinent finding (slightly anxious , no tremors noted at this time) Skin: normal color, warm/dry Hospital Course ALCOHOL WITHDRAWAL Recently drinking 30 cans of beer per day. Presented to ED for assistance with quitting. Alcohol withdrawal protocol implemented with thiamine, multivitamins, gabapentin , lorazepam. Experienced significant withdrawal symptoms with tremor, delirium. Doing well by completion of protocol. ALCOHOLISM Counseling with AA and other resources advised. ELEVATED LFT'S Total bilirubin [place] as high as 5.1 it was down to 4.3 day of discharge. Transaminases were in the 200s. GI consulted. Probable alcoholic hepatitis. Also has history of hepatitis C. No indication for prednisolone or pentoxifylline for alcoholic hepatitis at this time. Follow. ANEMIA Hemoglobin has fallen from 15 on admission to 12.1. Probable chronic anemia secondary to alcohol consumption. Stools negative for occult blood. Serum iron 133, B12 1190, folic acid 15.5. Follow. THROMBOCYTOPENIA Platelet count as low as 98,000. Probably secondary to alcohol consumption and associated hepatic disease. Platelet count day of discharge was 179,000. Follow. CORONARY ARTERY DISEASE No anginal symptoms. Has not been taking cardiac medications recently. Aspirin, clopidogrel, carvedilol, isosorbide mononitrate, lisinopril resumed. CHF Chronic left ventricular systolic heart failure with LVEF 30-35%. Appears to be compensated. Resumed carvedilol. Diurese as necessary. HYPERTENSION Has not been taking medications recently. Carvedilol and lisinopril resumed. CLOSTRIDIUM DIFFICILE (present on admission) Patient has a history of C. difficile and reports diarrhea at home for the last 2 months. Stool specimen for C. difficile ordered in the ED, but specimen not collected and sent to laboratory until morning of 01/26. C. difficile PCR was positive. Treatment initiated with vancomycin. Patient will not be able to afford prescription for vancomycin, so discharged on metronidazole to complete course of therapy. Metronidazole dose was decreased to 250 mg 3 times daily in light of his underlying liver disease. VTE PROPHYLAXIS No anticoagulants due to alcohol abuse. SCD's. Ambulate as able. DISPOSITION Discharge to home. Given info on counseling resources for alcoholism. Family Medicine follow-up with Dr. Rachel. . Total time spent on discharge = 40 min. This includes examination of the patient, discharge planning, medication reconciliation, and communication with other providers. . Discharge Instructions Date of Service January 30, 2018. Admission Reason for Admission: alcohol withdrawal, diarrhea . Discharge Discharge Diagnosis / Problem: alcohol withdrawal, C difficile diarrhea Discharge Goals Goal(s): Decrease discomfort, Improve function, Increase independence, Improve disease control Activity Recommendations Activity Limitations: resume your previous activity Driving or Machine Use: Do not drive if you have been drinking. . Instructions / Follow-Up Instructions / Follow-Up APPOINTMENTS: FAMILY MEDICINE 02/02/2018 2:00 PM Ally Black MD (covering for Dr. Rachel) OTHER INSTRUCTIONS: Take metronidazole (Flagyl) 250 mg 3 times a day for 7 days. Do not drink any alcoholic beverages- you don't want to relapse. Please contact AA and arrange for outpatient counseling. Seek medical attention if you have: * temperature above 101 * chest pain or trouble breathing * abdominal pain, nausea, vomiting * persistent diarrhea, dark stools or bloody stools * any unanswered questions or concerns Call 911 if symptoms are severe. Call if you have any questions or problems. My cell # is [phone]. You can also reach a [facility] hospitalist on duty at [facility] 24 hours a day by calling [phone]. Please take good care of yourself. Mateo Anderson . Current Hospital Diet Patient's current hospital diet: Regular Diet, Low Lactose Diet, Low Fat Diet Discharge Diet Recommended Diet: AHA Diet (Heart Healthy) Pending Studies Studies pending at discharge: no Medical Emergencies . Who to Call and When: Medical Emergencies: If at any time you feel your situation is an emergency, please call 911 immediately. . Non-Emergent Contact Non-Emergency issues call your: Primary Care Provider, [employer], Hospital Doctor . . "Provider Documentation" section prepared by Mateo Anderson. . .
== END 2018-01-30 19:45 | disposition home or self-care (01) | DRG 897 ==
LOC: C.EDB 17:04 → C.2T 21:04 → UNDOADMIN 21:04 → ENRESERV 21:17
PROVIDERS: ADMIT Internal Medicine; ATTEND Hospitalist
DX: F10.231 Alcohol dependence with withdrawal delirium (principal); A04.71 Enterocolitis due to Clostridium difficile, recurrent; I50.22 Chronic systolic (congestive) heart failure; F10.221 Alcohol dependence with intoxication delirium; K70.10 Alcoholic hepatitis without ascites; D63.8 Anemia in other chronic diseases classified elsewhere; D69.59 Other secondary thrombocytopenia; E87.6 Hypokalemia; Y90.9 Presence of alcohol in blood, level not specified; I11.0 Hypertensive heart disease with heart failure; I25.10 Atherosclerotic heart disease of native coronary artery without angina pectoris; I25.2 Old myocardial infarction; B18.2 Chronic viral hepatitis C; K21.9 Gastro-esophageal reflux disease without esophagitis; E66.9 Obesity, unspecified; F17.210 Nicotine dependence, cigarettes, uncomplicated; Z79.899 Other long term (current) drug therapy; Z79.82 Long term (current) use of aspirin; Z79.02 Long term (current) use of antithrombotics/antiplatelets; Z95.1 Presence of aortocoronary bypass graft; Z68.34 Body mass index [BMI] 34.0-34.9, adult; Z83.3 Family history of diabetes mellitus

== ENCOUNTER 2019-10-22 18:25 | Inpatient (IN) ==
[2019-10-22] MEDS ORDERED: diazePAM 5 MG TABLET PO ONE ×2 (19:01→21:20)
[2019-10-22] MEDS ORDERED: MULTI-VITAMIN INFUSION 10 ML, THIAMINE HCL 100 MG, FOLIC ACID 1 MG in SODIUM CHLORIDE 0... IV ONE (19:03)
[2019-10-22 19:35] LABS: Basophils # (auto) 0.01 K/uL (0-0.2); Basophils % (auto) 0.1 %; Hematocrit (blood only) 47.5 % (42-52); Hemoglobin 17.8 g/dL (14.0-18.0); Immature Granulocytes # (auto) 0.02 K/uL (0.00-0.02); Immature Granulocytes % (auto) 0.2 %; Lymphocytes # (auto) 1.67 K/uL (1.2-3.4); Lymphocytes % (auto) 19.3 %; Mean Corpuscular Hemoglobin 35.3 pg (25-34); Mean Corpuscular Hgb Conc 37.5 g/dL (32-36); Mean Corpuscular Volume 94.2 fL (80-100); Mean Platelet Volume 9.5 fL (7.4-10.4); Monocytes # (auto) 0.65 K/uL (0.11-0.59); Monocytes % (auto) 7.5 %; Neutrophils % (auto) 72.9 %; Platelet Count 129 K/uL (130-400); RDW Coefficient of Variation 13.1 % (11.5-14.5); Red Blood Count 5.04 M/uL (4.7-6.1); White Blood Count 8.65 K/uL (4.8-10.8)
[2019-10-22 19:43] LABS: Prothrombin Time 10.3 Seconds (9.0-12.0)
[2019-10-22] MEDS: NICOTINE 14 MG/24 HR PATCH TD SCH (19:53)
[2019-10-22 19:57] LABS: Albumin Level 3.8 gm/dl (3.4-5.0); BUN Creatinine Ratio 11.1 (10-20); Calcium 8.6 mg/dl (8.5-10.1); Creatinine Clr Calc Pharmacy 105.7 ml/min; Est GFR (African American) 113.2; Est GFR (Non-African American) 97.7; Potassium 3.4 mmol/L (3.5-5.1)
[2019-10-22 20:00] LABS: Albumin Globulin Ratio 0.9 (0.9-2); Bilirubin,Total 0.7 mg/dl (0.2-1); Globulin 4.4 gm/dl (2.5-4.0); Total Protein 8.2 gm/dl (6.4-8.2)
[2019-10-22] MEDS ORDERED: LORazepam 2 MG/4 ML VIAL IV STA (21:27)
--- NOTE | 2019-10-22 21:53 | Emergency Department Note ---
Entered by Gianna Hargrove acting as a scribe for History of Present Illness General Chief complaint: Alcohol Withdrawal Stated complaint: DETOX & POSSIBLE C-DIFF Time Seen by Provider: 10/22/19 18:41 Source: patient History of Present Illness Onset (ago): hour(s) (just prior to arrival) Location: head (general) Severity: similar to prior episodes Pain Consistency: + other (episode ) Maximum Pain Intensity: 0 Quality: + other (alcohol detox ) Associated symptoms: + other (negative falls) The patient is a 59 year old male who presents to the Emergency Room with complaints of an episode of a need for alcohol detox that began just prior to arrival. The patient states that he wants to detox from alcohol, but states that his most recent drink was just prior to coming to the ED. The patient states that he has not been to work in 2 weeks and has not eaten over the past few days. The patient states that he drinks about a fifth of vodka each day, stating that he drank that today as well. The patient states that he has gone through withdrawal before. The patient states that he was last sober before [place], a little over one month ago. He states that he was previously sober for 19 years before he lost his job and began drinking again. The patient denies any recent falls and states that he has not hit his head. The patient states that he smokes approximately 2 packs of cigarettes per day. Home Medications Home Medications Medication Instructions Recorded Confirmed Type atorvastatin 40 mg tablet 40 mg PO DAILY 04/23/19 10/22/19 History folic acid 400 mcg tablet 0.4 mg PO DAILY tab 04/23/19 10/22/19 History lisinopril 40 mg tablet 40 mg PO DAILY #1 tab 04/23/19 10/22/19 History carvedilol 25 mg tablet 25 mg PO BID #60 tab 05/17/19 10/22/19 Rx clopidogrel 75 mg tablet 75 mg PO DAILY #30 tab 08/21/19 10/22/19 Rx tramadol 50 mg tablet 100 mg PO Q12H #120 tab 10/08/19 10/22/19 Rx L-Arginine Pill 500 mg PO DAILY 10/22/19 10/22/19 History ascorbic acid (vitamin C) [Vitamin 1,000 mg PO DAILY 10/22/19 10/22/19 History C] aspirin [Aspir-Low] 81 mg PO DAILY 10/22/19 10/22/19 History coenzyme Q10 [Co Q-10] 200 mg PO DAILY 10/22/19 10/22/19 History glucosamine-chondroitin [Osteo 1 tab PO BID 10/22/19 10/22/19 History Bi-Flex] milk thistle 1,000 mg PO BID 10/22/19 10/22/19 History nitroglycerin [Nitrostat] 0.4 mg SUBLINGUAL UD PRN 10/22/19 10/22/19 History omega 5-[id number]-fish oil [[place]-3] 1 cap PO DAILY 10/22/19 10/22/19 History vitamin B complex 1 tab PO DAILY 10/22/19 10/22/19 History Allergies Allergy/AdvReac Type Severity Reaction Status Date / Time No Known Allergies Allergy Unverified 10/22/19 21:51 Past Med/Surg History Medical History (Updated 10/22/19 @ 23:17 by Rg Nuñez MD) Alcohol dependence (Chronic) Alcohol withdrawal C. difficile diarrhea (Resolved) CAD (coronary artery disease) (Chronic) "03/29/2017 - anterior STEMI, s/p JEFFREY to LAD" Hepatitis C (Chronic) History of Clostridioides difficile colitis History of GI bleed (Chronic) "secondary to esophageal ulceration on EGD 11/29/2013" HTN (hypertension) (Chronic) Ischemic cardiomyopathy (Chronic) "EF 30-35%" Obesity (Chronic) Renal artery stenosis (Chronic) "questionable" Surgical History H/O esophagogastroduodenoscopy (Chronic) "11/29/2013- Large lower esophageal ulceration. No bleeding. Portal hypertensive gastropathy. Erythematous duodenopathy. Normal 2nd part of the duodenum." Social History Preferred Language: Slovenian Communication Ability: Effective Financial Reporting Director Required: No Beliefs That Will Affect Care: None marital status: Current Living Situation: Spouse Feels Safe at Home: Yes Smoking Status: Current every day smoker Tobacco Type: cigarettes ; Cigarettes Per Day: 40 ; Second Hand Exposure: Yes ; Hx Alcohol Use: Yes Alcohol type: hard liquor Hx Substance Use: No Review of Systems See HPI for pertinent positives & negatives. and A total of 10 systems reviewed and were otherwise negative Physical Exam Vital Signs Vital Signs - 24 hr 10/22/19 18:36 10/22/19 19:00 10/22/19 19:27 Temperature 37.3 C Temperature Source Oral Pulse Rate 133 H 136 H 134 H Pulse Rate from SpO2 Sensor 137 H 134 H Respiratory Rate 20 18 22 Respiratory Depth Normal Blood Pressure 123/97 135/108 H 133/103 H Blood Pressure Mean 105 119 109 Pulse Oximetry 97 97 95 Oxygen Delivery Method Room Air Sepsis Recent Fever Within 48 Hours No Sepsis New/Unexplained Change in Mental Status No Sepsis Action Taken by Nursing No Action Required 10/22/19 19:30 10/22/19 20:00 10/22/19 20:30 Temperature Temperature Source Pulse Rate 134 H 127 H 128 H Pulse Rate from SpO2 Sensor 134 H 127 H 257 H Respiratory Rate 17 21 14 Respiratory Depth Blood Pressure 148/104 H 142/100 H 126/94 Blood Pressure Mean 128 105 100 Pulse Oximetry 96 95 96 Oxygen Delivery Method Room Air Room Air Room Air Sepsis Recent Fever Within 48 Hours Sepsis New/Unexplained Change in Mental Status Sepsis Action Taken by Nursing Vital signs reviewed. General: Intoxicated-appearing 59 year old male, flushed, in no significant distress. HEENT: No scleral icterus, PERRLA, neck supple. Atraumatic. Cardiovascular: Hypertensive. Tachycardic rate and regular rhythm, no extra sounds. Pulmonary: Clear to auscultation bilaterally, normal work of breathing. Abdomen: Soft, nontender, nondistended, positive bowel sounds. Musculoskeletal: Atraumatic, no peripheral edema. Neurologic: Patient awake alert and oriented x 3 Skin: Warm, dry, no rash Course Course 1858: Past medical records reviewed. The patient was evaluated in room C6. A complete history and physical exam was performed. 2053: I discussed the case with Dr. Nuñez-[facility] Hospitalist who accepts the patient for further evaluation. Administered Medications Ascorbic Acid (Vitamin C) 1,000 mg PO DAILY [facility] Stop: 11/22/19 08:59 Last Admin: 10/24/19 08:37 Dose: 1,000 mg Documented by: [id number] Admin: 10/23/19 09:33 Dose: 1,000 mg Documented by: [id number] Aspirin (Ecotrin Ectab) 81 mg PO DAILY [facility] Stop: 03/05/20 08:59 Last Admin: 10/24/19 08:37 Dose: 81 mg Documented by: [id number] Admin: 10/23/19 09:32 Dose: 81 mg Documented by: [id number] Atorvastatin Calcium (Lipitor) 40 mg PO DAILY [facility] Stop: 11/22/19 08:59 Last Admin: 10/24/19 08:36 Dose: 40 mg Documented by: [id number] Admin: 10/23/19 09:33 Dose: 40 mg Documented by: [id number] Carvedilol (Coreg) 25 mg PO BID [facility] Stop: 11/21/19 23:14 Last Admin: 10/24/19 22:22 Dose: 25 mg Documented by: [id number] Admin: 10/24/19 08:37 Dose: 25 mg Documented by: [id number] Admin: 10/23/19 21:28 Dose: 25 mg Documented by: [id number] Admin: 10/23/19 09:33 Dose: 25 mg Documented by: [id number] Admin: 10/22/19 23:58 Dose: 25 mg Documented by: [id number] Clopidogrel Bisulfate (Plavix) 75 mg PO DAILY [facility] Stop: 11/22/19 08:59 Last Admin: 10/24/19 08:36 Dose: 75 mg Documented by: [id number] Admin: 10/23/19 09:32 Dose: 75 mg Documented by: [id number] Enoxaparin Sodium (Lovenox) 40 mg SQ Q24H [facility] Stop: 11/22/19 08:59 Last Admin: 10/24/19 08:38 Dose: 40 mg Documented by: [id number] Admin: 10/23/19 09:33 Dose: 40 mg Documented by: [id number] Fish Oil ([place]-3 (Purified Fish Oil)) 1 gm PO DAILY [facility] Stop: 11/22/19 08:59 Last Admin: 10/24/19 08:37 Dose: 1 gm Documented by: [id number] Admin: 10/23/19 09:33 Dose: 1 gm Documented by: [id number] Folic Acid (Folvite) 1 mg PO QAM [facility] Stop: 11/22/19 08:59 Last Admin: 10/24/19 08:37 Dose: 1 mg Documented by: [id number] Admin: 10/23/19 09:32 Dose: 1 mg Documented by: [id number] Gabapentin (Neurontin) 400 mg PO Q12H [facility] Stop: 10/25/19 10:01 Last Admin: 10/24/19 22:21 Dose: 400 mg Documented by: [id number] Lorazepam (Ativan) 1 mg in 2 mls @ 2 mls/min IV UD PRN; Protocol PRN Reason: EtOH Withdrawl AWSS Score 6,7 Stop: 11/21/19 22:40 Last Admin: 10/24/19 08:45 Dose: 2 mls/min Documented by: [id number] Admin: 10/23/19 01:12 Dose: 2 mls/min Documented by: [id number] Lorazepam (Ativan) 2 mg in 4 mls @ 4 mls/min IV UD PRN; Protocol PRN Reason: EtOH Withdrawl AWSS Score 8,9 Stop: 11/21/19 22:40 Last Admin: 10/22/19 23:37 Dose: 4 mls/min Documented by: [id number] Lisinopril (Zestril) 40 mg PO DAILY [facility] Stop: 11/22/19 08:59 Last Admin: 10/24/19 08:37 Dose: 40 mg Documented by: [id number] Admin: 10/23/19 09:33 Dose: 40 mg Documented by: [id number] Miscellaneous (Remove Nicoderm Patch) 1 ea N/A DAILY@[id number] [facility] Stop: 11/22/19 08:58 Last Admin: 10/24/19 08:36 Dose: 1 ea Documented by: [id number] Admin: 10/23/19 08:02 Dose: 1 ea Documented by: [id number] Nicotine (Nicoderm Cq) 14 mg TD QAM [facility] Stop: 11/21/19 19:44 Last Admin: 10/24/19 08:37 Dose: 14 mg Documented by: [id number] Admin: 10/23/19 09:33 Dose: 14 mg Documented by: [id number] Admin: 10/22/19 19:53 Dose: 14 mg Documented by: [id number] Thiamine HCl (Vitamin B-1) 100 mg PO QAM [facility] Stop: 11/22/19 08:59 Last Admin: 10/24/19 08:37 Dose: 100 mg Documented by: [id number] Admin: 10/23/19 09:32 Dose: 100 mg Documented by: [id number] Tramadol HCl (Ultram) 100 mg PO Q12H [facility] Stop: 11/21/19 23:14 Last Admin: 10/24/19 10:34 Dose: 100 mg Documented by: [id number] Admin: 10/23/19 22:41 Dose: 100 mg Documented by: [id number] Admin: 10/23/19 11:43 Dose: 100 mg Documented by: [id number] Admin: 10/22/19 23:58 Dose: 100 mg Documented by: [id number] Vitamin B Complex (Vitamin B Complex) 1 tab PO DAILY [facility] Stop: 11/22/19 08:59 Last Admin: 10/24/19 08:38 Dose: 1 tab Documented by: [id number] Admin: 10/23/19 09:33 Dose: 1 tab Documented by: [id number] Discontinued Medications Diazepam (Valium) 10 mg PO NOW ONE Stop: 10/22/19 19:02 Last Admin: 10/22/19 19:33 Dose: 10 mg Documented by: [id number] Diazepam (Valium) 10 mg PO NOW ONE Stop: 10/22/19 21:21 Last Admin: 10/22/19 21:27 Dose: Not Given Documented by: [id number] Gabapentin (Neurontin) 800 mg PO NOW ONE Stop: 10/22/19 22:42 Last Admin: 10/22/19 23:37 Dose: 800 mg Documented by: [id number] Gabapentin (Neurontin) 400 mg PO Q6H [facility] Stop: 10/23/19 10:01 Last Admin: 10/23/19 09:32 Dose: 400 mg Documented by: [id number] Admin: 10/23/19 05:03 Dose: 400 mg Documented by: [id number] Gabapentin (Neurontin) 400 mg PO Q8H [facility] Stop: 10/24/19 10:01 Last Admin: 10/24/19 10:32 Dose: 400 mg Documented by: [id number] Admin: 10/24/19 02:35 Dose: 400 mg Documented by: [id number] Admin: 10/23/19 17:16 Dose: 400 mg Documented by: [id number] Multivitamins 10 ml/ Thiamine HCl 100 mg/ Folic Acid 1 mg/Sodium Chloride 1,011.2 mls @ 1,011.2 mls/hr IV .Q1H ONE Stop: 10/22/19 20:02 Last Infusion: 10/22/19 20:56 Dose: 0 mls/hr Documented by: [id number] Admin: 10/22/19 19:53 Dose: 1,011.2 mls/hr Documented by: [id number] Lorazepam (Ativan) 2 mg in 4 mls @ 4 mls/min IV NOW STA Stop: 10/22/19 21:28 Last Admin: 10/22/19 21:40 Dose: 4 mls/min Documented by: [id number] Potassium Chloride/Sodium Chloride (Normal Saline W/20 Meq Kcl) 20 meq in 1,000 mls @ 125 mls/hr IV .Q8H [facility] Stop: 11/21/19 22:40 Last Infusion: 10/24/19 10:31 Dose: 0 mls/hr Documented by: [id number] Admin: 10/24/19 08:36 Dose: 125 mls/hr Documented by: [id number] Infusion: 10/24/19 07:46 Dose: 125 mls/hr Documented by: [id number] Admin: 10/23/19 23:46 Dose: 125 mls/hr Documented by: [id number] Infusion: 10/23/19 23:46 Dose: 125 mls/hr Documented by: [id number] Admin: 10/23/19 15:50 Dose: 125 mls/hr Documented by: [id number] Infusion: 10/23/19 15:50 Dose: 125 mls/hr Documented by: [id number] Admin: 10/23/19 08:02 Dose: 125 mls/hr Documented by: [id number] Infusion: 10/23/19 07:37 Dose: 125 mls/hr Documented by: [id number] Admin: 10/23/19 06:12 Dose: Not Given Documented by: [id number] Infusion: 10/23/19 06:12 Dose: 125 mls/hr Documented by: [id number] Admin: 10/22/19 23:37 Dose: 125 mls/hr Documented by: [id number] Influenza Virus Vaccine Quadrival (Flucelvax Quad Vaccine) 0.5 ml IM .ONCE ONE Stop: 10/23/19 09:01 Last Admin: 10/23/19 07:24 Dose: Not Given Documented by: [id number] Lorazepam (Ativan) 1 mg PO NOW ONE Stop: 10/23/19 15:26 Last Admin: 10/23/19 15:50 Dose: 1 mg Documented by: [id number] Lorazepam (Ativan) 1 mg PO NOW STA Stop: 10/24/19 18:48 Last Admin: 10/24/19 19:48 Dose: 1 mg Documented by: [id number] Metoprolol Tartrate (Lopressor) 5 mg IV Q4 PRN PRN Reason: Tachycardia Stop: 11/22/19 00:00 Last Admin: 10/22/19 23:57 Dose: 5 mg Documented by: [id number] Medical Decision Making Differential Diagnosis Differential diagnosis: Etiologies such as toxicologic, infection, hypoglycemia, electrolyte abnormalities, cardiac sources, intracerebral event, neurologic, alcohol withdrawal as well as others were entertained. Medical Records Attestation: I reviewed the patient's medical records. Home Medications Current Medication List: was personally reviewed by me Laboratory Data Attestation: I reviewed the patient's lab results. Result diagrams: 10/24/19 05:31 10/24/19 05:31 Lab Results 10/22/19 10/22/19 10/22/19 Range/Units 19:23 19:23 19:23 WBC 8.65 (4.8-10.8) K/uL RBC 5.04 (4.7-6.1) M/uL Hgb 17.8 (14.0-18.0) g/dL Hct 47.5 (42-52) % MCV 94.2 (80-100) fL MCH 35.3 H (25-34) pg MCHC 37.5 H (32-36) g/dL RDW Std Deviation 45.0 (36.4-46.3) fL RDW Coeff of [place] 13.1 (11.5-14.5) % Plt Count 129 L (130-400) K/uL MPV 9.5 (7.4-10.4) fL Immature Gran % (Auto) 0.2 % Neut % (Auto) 72.9 % Lymph % (Auto) 19.3 % Saline % (Auto) 7.5 % Eos % (Auto) 0.0 % Baso % (Auto) 0.1 % Immature Gran # (Auto) 0.02 (0.00-0.02) K/uL Neut # (Auto) 6.30 (1.4-6.5) K/uL Lymph # (Auto) 1.67 (1.2-3.4) K/uL Saline # (Auto) 0.65 H (0.11-0.59) K/uL Eos # (Auto) 0.00 (0-0.5) K/uL Baso # (Auto) 0.01 (0-0.2) K/uL PT 10.3 (9.0-12.0) Seconds INR 1.0 (0.9-1.1) Sodium 138 (136-145) mmol/L Potassium 3.4 L (3.5-5.1) mmol/L Chloride 103 (98-107) mmol/L Carbon Dioxide 24 (21-32) mmol/L Anion Gap 11.0 (3-11) BUN 9 (7-18) mg/dl Creatinine 0.83 (0.6-1.4) mg/dl Est Cr Clr Drug Dosing 105.7 ml/min Est GFR ( Amer) 113.2 Est GFR (Non-Af Amer) 97.7 BUN/Creatinine Ratio 11.1 (10-20) Glucose 128 H (70-99) mg/dl Calcium 8.6 (8.5-10.1) mg/dl Total Bilirubin 0.7 (0.2-1) mg/dl AST 55 H (15-37) U/L ALT 42 (12-78) U/L Alkaline Phosphatase 86 (45-117) U/L Total Protein 8.2 (6.4-8.2) gm/dl Albumin 3.8 (3.4-5.0) gm/dl Globulin 4.4 H (2.5-4.0) gm/dl Albumin/Globulin Ratio 0.9 (0.9-2) Ethyl Alcohol mg/dL (0-3) mg/dl 10/22/19 Range/Units 19:23 WBC (4.8-10.8) K/uL RBC (4.7-6.1) M/uL Hgb (14.0-18.0) g/dL Hct (42-52) % MCV (80-100) fL MCH (25-34) pg MCHC (32-36) g/dL RDW Std Deviation (36.4-46.3) fL RDW Coeff of [place] (11.5-14.5) % Plt Count (130-400) K/uL MPV (7.4-10.4) fL Immature Gran % (Auto) % Neut % (Auto) % Lymph % (Auto) % Saline % (Auto) % Eos % (Auto) % Baso % (Auto) % Immature Gran # (Auto) (0.00-0.02) K/uL Neut # (Auto) (1.4-6.5) K/uL Lymph # (Auto) (1.2-3.4) K/uL Saline # (Auto) (0.11-0.59) K/uL Eos # (Auto) (0-0.5) K/uL Baso # (Auto) (0-0.2) K/uL PT (9.0-12.0) Seconds INR (0.9-1.1) Sodium (136-145) mmol/L Potassium (3.5-5.1) mmol/L Chloride (98-107) mmol/L Carbon Dioxide (21-32) mmol/L Anion Gap (3-11) BUN (7-18) mg/dl Creatinine (0.6-1.4) mg/dl Est Cr Clr Drug Dosing ml/min Est GFR ( Amer) Est GFR (Non-Af Amer) BUN/Creatinine Ratio (10-20) Glucose (70-99) mg/dl Calcium (8.5-10.1) mg/dl Total Bilirubin (0.2-1) mg/dl AST (15-37) U/L ALT (12-78) U/L Alkaline Phosphatase (45-117) U/L Total Protein (6.4-8.2) gm/dl Albumin (3.4-5.0) gm/dl Globulin (2.5-4.0) gm/dl Albumin/Globulin Ratio (0.9-2) Ethyl Alcohol mg/dL 268.6 H (0-3) mg/dl ECG Data Additional Comments: An order for cardiac monitoring was placed. The patient is found to be in a sinus tachycardia at about 134 bpm. Blood Pressure Blood Pressure Findings: Elevated blood pressure Blood Pressure Disposition: elevated BP felt to be situational MDM Narrative This patient was evaluated and appeared to be in no significant distress. IV access was obtained and laboratory work was drawn. The patient was placed on the waxer floor. Patient is clinically intoxicated however he is tachycardic as well. He states he was drinking vodka prior to arrival. Patient was hydrated with a banana bag and observed on the waxer floor. He remained tachycardic and hypertensive. Patient was given 10 mg of p.o. Valium with some improvement in his symptoms. Patient's blood alcohol content is 268. Patient r equired a second dose of p.o. Valium for tachycardia and hypertension. He was reevaluated and expressed his wishes for detox. He has no desire for inpatient rehab as this will interfere with his employment. Patient son states he has called off of work for the last 2 weeks due to his intoxication. Patient was discussed with the hospitalist service for further management. Impression & Plan Alcohol withdrawal, Hypertension, Tachycardia Discharge Plan Visit Data *Final* Discharge Date/Time: 10/22/19 22:22 Chief Complaint: Alcohol Withdrawal Stated Complaint: DETOX & POSSIBLE C-DIFF ED Provider: Pinky Fitch Discharge Problem: Alcohol withdrawal, Hypertension, Tachycardia Patient Disposition: Admitted As Inpatient Discharge Instructions Interventions: ED Discharge Assessment Last Done: 10/22/19 22:22 Discharge Problem: Alcohol withdrawal Qualifiers: Complication of substance-induced condition: with unspecified complication Qualified Code(s): F10.239 - Alcohol dependence with withdrawal, unspecified Hypertension Qualifiers: Hypertension type: unspecified Qualified Code(s): I10 - Essential (primary) hypertension The scribe's documentation has been prepared under my direction and personally reviewed by me in its entirety. I confirm that the note above accurately reflects all work, treatment, procedures, and medical decision making performed by me.
[2019-10-22] MEDS ORDERED: ATIVAN IV ALCOHOL WITHDRAWL IV PRN (22:41)
[2019-10-22] MEDS ORDERED: MAGNESIUM HYDROXIDE SUSP 30 ML UDC PO PRN (22:41)
[2019-10-22] MEDS ORDERED: ALUMINUM/MAGNESIUM SUSP 30 ML UDC PO PRN (22:41)
[2019-10-22] MEDS ORDERED: LORazepam 3 MG/6 ML VIAL IV PRN (22:41)
[2019-10-22] MEDS ORDERED: ONDANSETRON INJ 2 MG/ML 2 ML VIAL IV PRN (22:41)
[2019-10-22] MEDS ORDERED: GABAPENTIN 800MG ALCOHOL WITHDRAWAL LOAD PO STA (22:41)
[2019-10-22] MEDS ORDERED: GABAPENTIN 400 MG CAP PO ONE (22:41)
[2019-10-22] MEDS ORDERED: LORazepam 2 MG/4 ML VIAL IV PRN (22:41)
--- NOTE | 2019-10-22 22:41 | History & Physical Report ---
Date of Service October 22, 2019 Assessment & Plan (1) Alcohol withdrawal: Patient reported to the ED with feelings like he was going through DTs, which was likely significantly accentuated by anxiety due to an ultimatum from his . Continue carvedilol 25 mg p.o. twice daily. He was given Valium 10 mg p.o. x1 in the ED by the ED. Give Lorazepam 2 mg IV now. AWSS with planned gabapentin taper and as needed lorazepam IV. Follow on telemetry. Present on Admission?: Yes (2) CAD (coronary artery disease): CAD/hypertension/sinus tachycardia/ischemic cardiomyopathy/history of stented coronary artery- The patient will be admitted to telemetry for serial cardiac enzymes, serial EKG's, cardiac rhythm monitoring and a 2-D echocardiogram with Dopplers. Continue carvedilol 25 mg p.o. twice daily. Lopressor 5 mg IV every 4 hours PRN heart rate greater than 110. Present on Admission?: Yes (3) Tachycardia: Sinus tachycardia on monitor and EKG Present on Admission?: Yes (4) Ischemic cardiomyopathy: See above Present on Admission?: Yes (5) HTN (hypertension): See above Present on Admission?: Yes (6) Hepatitis C: Liver enzymes are actually very close to normal. With AST only mildly elevated at 55. Follow serially. Present on Admission?: Yes (7) History of Clostridioides difficile colitis: No active issues at this time. Present on Admission?: Yes History of Present Illness Chief Complaint: The patient presents to the emergency department reporting that he feels as if he is going through DTs. Primary Care Provider: Royer Henry MD The patient is a 59-year-old male with a past medical history including hypertension, alcohol withdrawal, ischemic cardiomyopathy, CAD with history of coronary artery stent, history of C. difficile colitis, CAD, hepatitis C, obesity, renal artery stenosis and hypertension. He reports that he had been off of alcohol for 19 years, however, since he is resumed again, he was threatened by his to either stop drinking or she was going to leave him, and thus he presents the emergency department with feelings of DTs, withdrawal, and is very anxious and stressed. He reports that he has been drinking on a daily basis, including today. 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 Allergies Allergy/AdvReac Type Severity Reaction Status Date / Time No Known Allergies Allergy Unverified 10/22/19 21:51 Home Medications Home Medications Medication Instructions Recorded Confirmed Type atorvastatin 40 mg tablet 40 mg PO DAILY 04/23/19 10/22/19 History folic acid 400 mcg tablet 0.4 mg PO DAILY tab 04/23/19 10/22/19 History lisinopril 40 mg tablet 40 mg PO DAILY #1 tab 04/23/19 10/22/19 History carvedilol 25 mg tablet 25 mg PO BID #60 tab 05/17/19 10/22/19 Rx clopidogrel 75 mg tablet 75 mg PO DAILY #30 tab 08/21/19 10/22/19 Rx tramadol 50 mg tablet 100 mg PO Q12H #120 tab 10/08/19 10/22/19 Rx L-Arginine Pill 500 mg PO DAILY 10/22/19 10/22/19 History ascorbic acid (vitamin C) [Vitamin 1,000 mg PO DAILY 10/22/19 10/22/19 History C] aspirin [Aspir-Low] 81 mg PO DAILY 10/22/19 10/22/19 History coenzyme Q10 [Co Q-10] 200 mg PO DAILY 10/22/19 10/22/19 History glucosamine-chondroitin [Osteo 1 tab PO BID 10/22/19 10/22/19 History Bi-Flex] milk thistle 1,000 mg PO BID 10/22/19 10/22/19 History nitroglycerin [Nitrostat] 0.4 mg SUBLINGUAL UD PRN 10/22/19 10/22/19 History omega 2-ipb-esy-fish oil [Dale-3] 1 cap PO DAILY 10/22/19 10/22/19 History vitamin B complex 1 tab PO DAILY 10/22/19 10/22/19 History Past Med/Surg History Medical History Alcohol dependence (Chronic) Alcohol withdrawal C. difficile diarrhea (Resolved) CAD (coronary artery disease) (Chronic) "03/29/2017 - anterior STEMI, s/p JEFFREY to LAD" Hepatitis C (Chronic) History of GI bleed (Chronic) "secondary to esophageal ulceration on EGD 11/29/2013" HTN (hypertension) (Chronic) Ischemic cardiomyopathy (Chronic) "EF 30-35%" Obesity (Chronic) Renal artery stenosis (Chronic) "questionable" Surgical History H/O esophagogastroduodenoscopy (Chronic) "11/29/2013- Large lower esophageal ulceration. No bleeding. Portal hypertensive gastropathy. Erythematous duodenopathy. Normal 2nd part of the duodenum." Social History Preferred Language: Cameroonian Communication Ability: Effective [employer] Manager Required: No Beliefs That Will Affect Care: None Current Living Situation: Spouse Other Information That Helps Us Care for You: No Feels Safe at Home: Yes Safety Concerns: Feels Safe At This Time Smoking Status: Current every day smoker Tobacco Type: cigarettes ; Cigarettes Per Day: 40 ; Do You Dip or Chew Tobacco: Yes ; Second Hand Exposure: Yes ; Tobacco Cessation Education Requested by Patient: No Hx Alcohol Use: Yes Alcohol type: hard liquor Hx Substance Use: No Review of Systems Review of Systems: The patient denies chest pain, shortness of breath, dyspnea on exertion, cough, lower extremity swelling, sore throat, fevers, chills, sweats, weight change, fatigue, nausea, vomiting, diarrhea , constipation, abdominal pain, pelvic pain, blood in urine or stool, dysuria, urinary frequency or urgency, lightheadedness, dizziness, headache, memory loss, loss of consciousness, rash, abnormal bruising or bleeding, imbalance, focal or generalized weakness, numbness or tingling in arms or legs, generalized arthralgias or myalgias, back or neck pain, or night sweats. The review of systems is otherwise negative other than for that already noted above, and at least 10 systems have been reviewed. His primary symptoms are that of being very anxious and jittery and having palpitations. Physical Exam Physical Exam: The patient is awake, alert and oriented 3, appears very anxious and jittery, normocephalic and atraumatic, otherwise sitting upright in bed and in no acute distress. HEENT--PERRL, EOMI, mucous membranes and oropharynx dry. Neck--supple. No JVD. No bruits. Thyroid normal, trachea midline, no adenopathy. Heart--tachycardic and regular. No murmurs, rubs or gallops. Lungs--clear bilaterally, no respiratory distress, no accessory muscle use. Abdomen--normal bowel sounds and soft. Nontender. Nondistended, no hernias or masses, no organomegaly. Extremities--no cyanosis or clubbing. No edema. Dermatologic--normal skin turgor, normal color, no abnormal lymph nodes, no rash. Neurologic--cranial nerves II through XII grossly intact. Rheumatologic--normal range of motion. Psychiatric--very anxious and jittery Results & Data Vital Signs (Past 12 Hours) Vital Signs Temp Pulse Resp BP Pulse Ox 10/22/19 22:00 134 H 25 H 140/93 93 10/22/19 21:40 139 H 24 138/106 H 94 10/22/19 21:00 134 H 27 H 159/95 H 96 10/22/19 20:30 128 H 14 126/94 96 10/22/19 20:00 127 H 21 142/100 H 95 10/22/19 19:30 134 H 17 148/104 H 96 10/22/19 19:27 134 H 22 133/103 H 95 10/22/19 19:00 136 H 18 135/108 H 97 10/22/19 18:36 99.1 F 133 H 20 123/97 97 Laboratory Results Laboratory Results WBC 8.65 K/uL (4.8-10.8) 10/22/19 19: RBC 5.04 M/uL (4.7-6.1) 10/22/19 19:23 Hgb 17.8 g/dL (14.0-18.0) 10/22/19 19: Hct 47.5 % (42-52) 10/22/19 19: MCV 94.2 fL (80-100) 10/22/19 19: MCH 35.3 pg (25-34) H 10/22/19 19: MCHC 37.5 g/dL (32-36) H 10/22/19 19: RDW Std Deviation 45.0 fL (36.4-46.3) 10/22/19: RDW Coeff of [place] 13.1 % (11.5-14.5) 10/22/19 19: Plt Count 129 K/uL (130-400) L 10/22/19 19: MPV 9.5 fL (7.4-10.4) 10/22/19 19:23 Immature Gran % (Auto) 0.2 % 10/22/19 19:23 Neut % (Auto) 72.9 % 10/22/19 19:23 Lymph % (Auto) 19.3 % 10/22/19 19:23 [place] % (Auto) 7.5 % 10/22/19 19:23 Eos % (Auto) 0.0 % 10/22/19 19:23 Baso % (Auto) 0.1 % 10/22/19 19:23 Immature Gran # (Auto) 0.02 K/uL (0.00-0.02) 10/22/19 19:23 Neut # (Auto) 6.30 K/uL (1.4-6.5) 10/22/19 19: Lymph # (Auto) 1.67 K/uL (1.2-3.4) 10/22/19 19: [place] # (Auto) 0.65 K/uL (0.11-0.59) H 10/22/19 19: Eos # (Auto) 0.00 K/uL (0-0.5) 10/22/19 19: Baso # (Auto) 0.01 K/uL (0-0.2) 10/22/19 19: PT 10.3 Seconds (9.0-12.0) 10/22/19 19: INR 1.0 (0.9-1.1) 10/22/19 19: Sodium 138 mmol/L (136-145) 10/22/19 19: Potassium 3.4 mmol/L (3.5-5.1) L 10/22/19 19: Chloride 103 mmol/L (98-107) 10/22/19 19: Carbon Dioxide 24 mmol/L (21-32) 10/22/19 19: Anion Gap 11.0 (3-11) 10/22/19 19: BUN 9 mg/dl (7-18) 10/22/19 19: Creatinine 0.83 mg/dl (0.6-1.4) 10/22/19 19: Est Cr Clr Drug Dosing 105.7 ml/min 10/22/19 19: Est GFR ( Amer) 113.2 10/22/19 19: Est GFR (Non-Af Amer) 97.7 10/22/19 19:23 BUN/Creatinine Ratio 11.1 (10-20) 10/22/19 19:23 Glucose 128 mg/dl (70-99) H 10/22/19 19:23 Calcium 8.6 mg/dl (8.5-10.1) 10/22/19 19:23 Total Bilirubin 0.7 mg/dl (0.2-1) 10/22/19 19:23 AST 55 U/L (15-37) H 10/22/19 19:23 ALT 42 U/L (12-78) 10/22/19 19:23 Alkaline Phosphatase 86 U/L (45-117) 10/22/19 19:23 Total Protein 8.2 gm/dl (6.4-8.2) 10/22/19 19:23 Albumin 3.8 gm/dl (3.4-5.0) 10/22/19 19:23 Globulin 4.4 gm/dl (2.5-4.0) H 10/22/19 19:23 Albumin/Globulin Ratio 0.9 (0.9-2) 10/22/19 19:23 Ethyl Alcohol mg/dL 268.6 mg/dl (0-3) H 10/22/19 19:23 Code Status & VTE Plan Code Status Full code VTE Prophylaxis Plan VTE Prophylaxis will be ordered: Yes PG Care Time/CCT Total # of Minutes Spent Total Time Spent with Patient: Total time spent is greater than 50% in coordination of care (as documented) at patient's floor/unit and/or counseling patient: Coding Level of Care Code 71396 Initial Inpt Care Lvl 3 Diagnoses Alcohol withdrawal F10.239 Complication of substance-induced condition: with unspecified complication CAD (coronary artery disease) I25.10 Tachycardia R00.0 Ischemic cardiomyopathy I25.5 HTN (hypertension) I10 Hepatitis C B19.20 History of Clostridioides difficile colitis Z86.19 (1) Alcohol withdrawal Complication of substance-induced condition: with unspecified complication Qualified Code(s): F10.239 - Alcohol dependence with withdrawal, unspecified
[2019-10-22] MEDS ORDERED: INFLUENZA ADMINISTRATION CHARGE ONE (22:59)
[2019-10-22] MEDS ORDERED: NITROGLYCERIN SL 0.4 MG/TAB TAB SL PRN (23:12)
[2019-10-22] MEDS ORDERED: METOPROLOL TARTRATE 1 MG/ML VIAL IV PRN (23:14)
[2019-10-22] MEDS ORDERED: NON-FORMULARY MEDICATION (Glucosamine-Chondroitin [Osteo Bi-Flex] 1 TAB) PO SCH (23:15)
[2019-10-22] MEDS: NSS + 20MEQ KCL 20 MEQ/1,000 ML BAG IV SCH (23:37)
[2019-10-22] MEDS: carvediloL 25 MG TAB PO SCH (23:58)
[2019-10-22] MEDS: TRAMADOL HCL 50 MG TABLET PO SCH (23:58)
[2019-10-23 00:03] LABS: Magnesium 1.9 mg/dl (1.8-2.4); Troponin I 0.071 ng/ml (0-0.045)
[2019-10-23] MEDS: LORazepam 1 MG/2 ML VIAL IV PRN (01:12)
[2019-10-23] MEDS: GABAPENTIN 400 MG CAP PO SCH ×3 (05:03→17:16)
[2019-10-23] MEDS: NSS + 20MEQ KCL 20 MEQ/1,000 ML BAG IV SCH ×4 (06:12→23:46)
[2019-10-23 06:57] LABS: Hematocrit (blood only) 40.7 % (42-52); Hemoglobin 14.3 g/dL (14.0-18.0); Mean Corpuscular Hemoglobin 34.5 pg (25-34); Mean Corpuscular Hgb Conc 35.1 g/dL (32-36); Mean Corpuscular Volume 98.1 fL (80-100); RDW Coefficient of Variation 13.5 % (11.5-14.5); Red Blood Count 4.15 M/uL (4.7-6.1); White Blood Count 7.18 K/uL (4.8-10.8)
[2019-10-23 07:12] LABS: Prothrombin Time 10.7 Seconds (9.0-12.0)
[2019-10-23 07:33] LABS: Albumin Level 3.1 gm/dl (3.4-5.0); Creatinine Clr Calc Pharmacy 106.8 ml/min; Est GFR (African American) 113.8; Est GFR (Non-African American) 98.2; Potassium 3.8 mmol/L (3.5-5.1)
[2019-10-23 07:36] LABS: Mean Platelet Volume 9.8 fL (7.4-10.4); Platelet Count 77 K/uL (130-400)
[2019-10-23 07:38] LABS: Albumin Globulin Ratio 0.9 (0.9-2); Globulin 3.4 gm/dl (2.5-4.0); Total Protein 6.5 gm/dl (6.4-8.2)
[2019-10-23 07:46] LABS: Basophils # (auto) 0.01 K/uL (0-0.2); Basophils % (auto) 0.1 %; Eosinophils # (auto) 0.05 K/uL (0-0.5); Eosinophils % (auto) 0.7 %; Immature Granulocytes # (auto) 0.01 K/uL (0.00-0.02); Immature Granulocytes % (auto) 0.1 %; Lymphocytes # (auto) 1.73 K/uL (1.2-3.4); Lymphocytes % (auto) 24.1 %; Monocytes # (auto) 0.42 K/uL (0.11-0.59); Monocytes % (auto) 5.8 %; Neutrophils # (auto) 4.96 K/uL (1.4-6.5); Neutrophils % (auto) 69.2 %; Platelet Estimate Decreased (Normal)
[2019-10-23] MEDS ORDERED: FOLIC ACID 400 MCG TAB PO SCH (09:00)
[2019-10-23] MEDS ORDERED: INFLUENZA VIRUS QUAD VACCINE 0.5 ML SYR IM ONE (09:00)
[2019-10-23] MEDS ORDERED: NON-FORMULARY MEDICATION (Coenzyme Q10 [Co Q-10] 200 MG) PO SCH (09:00)
[2019-10-23] MEDS: CLOPIDOGREL BISULFATE 75 MG TAB PO SCH (09:32)
[2019-10-23] MEDS: FOLIC ACID 1 MG TAB PO SCH (09:32)
[2019-10-23] MEDS: THIAMINE HCL 100 MG TAB PO SCH (09:32)
[2019-10-23] MEDS: ASPIRIN 81 MG ECTAB PO SCH (09:32)
[2019-10-23] MEDS: ENOXAPARIN INJ 40 MG/0.4 ML SYR SQ SCH (09:33)
[2019-10-23] MEDS: OMEGA-3 (PURIFIED FISH OIL) 1 GM CAP PO SCH (09:33)
[2019-10-23] MEDS: ASCORBIC ACID 500 MG TAB PO SCH (09:33)
[2019-10-23] MEDS: carvediloL 25 MG TAB PO SCH ×2 (09:33→21:28)
[2019-10-23] MEDS: ATORVASTATIN 40 MG TAB PO SCH (09:33)
[2019-10-23] MEDS: VITAMIN B COMPLEX TAB PO SCH (09:33)
[2019-10-23] MEDS: lisinopriL 40 MG TAB PO SCH (09:33)
[2019-10-23] MEDS: NICOTINE 14 MG/24 HR PATCH TD SCH (09:33)
[2019-10-23] MEDS: TRAMADOL HCL 50 MG TABLET PO SCH ×2 (11:43→22:41)
--- NOTE | 2019-10-23 12:26 | Electrocardiogram Report ---
Test Reason : Blood Pressure : / mmHG Vent. Rate : 084 BPM Atrial Rate : 084 BPM P-R Int : 166 ms QRS Dur : 092 ms QT Int : 396 ms P-R-T Axes : -06 -51 003 degrees QTc Int : 467 ms Normal sinus rhythm Left axis deviation Nonspecific ST and T wave abnormality Abnormal ECG When compared with ECG of 26-JAN-2018 06:34, No significant change was found Confirmed by Jayant Gross ([id number]) on 10/23/2019 12:26:12 PM Referred By: REFERRED SELF Confirmed By:Jayant Gross
[2019-10-23] MEDS ORDERED: LORazepam 1 MG TAB PO ONE (15:25)
--- NOTE | 2019-10-23 15:33 | Hospitalist Progress Note ---
Date of Service October 23, 2019 Assessment & Plan (1) Alcohol withdrawal: Patient reported to the ED with feelings like he was going through DTs, which was likely significantly accentuated by anxiety due to an ultimatum from his that she will leave if he does not stop drinking resting most of the day, continue Gabapentin taper Ativan PRN will give a one time dose of Ativan 1mg PO now only mild tremors he agrees to commit to stay here through tomorrow, will assess how he is on morning continue tele for now, likely can go to medical tomorrow if he is stable (2) CAD (coronary artery disease): CAD/hypertension/sinus tachycardia/ischemic cardiomyopathy/history of stented coronary artery- no chest pain, troponin was minimally elevated, no rise and fall Continue carvedilol 25 mg p.o. twice daily. (3) Tachycardia: Sinus tachycardia on monitor and EKG resolved, HR stable (4) Ischemic cardiomyopathy: See above (5) HTN (hypertension): See above (6) Hepatitis C: Liver enzymes are actually very close to normal. With AST only mildly elevated at 40 (7) History of Clostridioides difficile colitis: No active issues at this time. Subjective patient sleeping most of the day, experiencing some mild tremors he reports that he is eating and drinking okay he was drinking up to a 5th a day prior to admission, has been drinking heavy for the past year was sober for 19 years discussed that the worst withdrawal symptoms likely in next 24 hours as he still had alcohol in system on admission he agrees to stay through tomorrow labs reviewed, CBC and CMP stable Review of Systems Review of Systems: All systems reviewed & are unremarkable except as noted in HPI & below Constitutional: + fatigue; no fever, no chills, no sweats and no weakness Respiratory: no cough and no dyspnea Cardiovascular: no chest pain, no palpitations and no edema Gastrointestinal: no abdominal pain, no nausea, no vomiting, no constipation and no diarrhea/loose stools Neurologic: + tremor(s) Psychiatric: + anxiety Physical Exam Constitutional: WD/WN, vitals as above + overweight Eyes: PERRL, conjunctivae normal, anicteric sclerae ENMT: external ear and nose normal, oropharynx normal Neck: trachea midline, no thyromegaly Respiratory: normal respiratory effort, lungs clear to auscultation Cardiovascular: RRR, no murmur, no edema Gastrointestinal (Abdomen): normal bowel sounds, soft, nontender, no hepatosplenomegaly Musculoskeletal: no cyanosis or clubbing, extremities motor strength 5/5 Skin: no rashes, warm and dry Neurologic: patellar DTR's 2+ bilat, sensation intact and PERRL, EOMI, accommodation nl, no face palsy, no dysarthria Psychiatric: A+Ox3, euthymic affect Lymphatic: no cervical or axillary lymphadenopathy Results & Data ([facility]) Vital Signs (Past 12 Hours) Vital Signs Temp Pulse Pulse Resp BP Pulse Ox 10/23/19 11:01 36.8 C 83 20 146/97 H 96 10/23/19 07:22 36.7 C 20 171/111 H 96 10/23/19 07:00 83 Laboratory Results Laboratory Results - last 24 hr 10/22/19 10/22/19 10/22/19 19:23 19:23 19:23 WBC 8.65 RBC 5.04 Hgb 17.8 Hct 47.5 MCV 94.2 MCH 35.3 H MCHC 37.5 H RDW Std Deviation 45.0 RDW Coeff of [place] 13.1 Plt Count 129 L MPV 9.5 Immature Gran % (Auto) 0.2 Neut % (Auto) 72.9 Lymph % (Auto) 19.3 [place] % (Auto) 7.5 Eos % (Auto) 0.0 Baso % (Auto) 0.1 Immature Gran # (Auto) 0.02 Neut # (Auto) 6.30 Lymph # (Auto) 1.67 [place] # (Auto) 0.65 H Eos # (Auto) 0.00 Baso # (Auto) 0.01 Platelet Estimate PT 10.3 INR 1.0 Sodium 138 Potassium 3.4 L Chloride 103 Carbon Dioxide 24 Anion Gap 11.0 BUN 9 Creatinine 0.83 Est Cr Clr Drug Dosing 105.7 Est GFR ( Amer) 113.2 Est GFR (Non-Af Amer) 97.7 BUN/Creatinine Ratio 11.1 Glucose 128 H Calcium 8.6 Magnesium Total Bilirubin 0.7 AST 55 H ALT 42 Alkaline Phosphatase 86 Troponin I Total Protein 8.2 Albumin 3.8 Globulin 4.4 H Albumin/Globulin Ratio 0.9 Folate Ethyl Alcohol mg/dL 10/22/19 10/22/19 10/22/19 19:23 22:58 22:58 WBC RBC Hgb Hct MCV MCH MCHC RDW Std Deviation RDW Coeff of [place] Plt Count MPV Immature Gran % (Auto) Neut % (Auto) Lymph % (Auto) [place] % (Auto) Eos % (Auto) Baso % (Auto) Immature Gran # (Auto) Neut # (Auto) Lymph # (Auto) [place] # (Auto) Eos # (Auto) Baso # (Auto) Platelet Estimate PT INR Sodium Potassium Chloride Carbon Dioxide Anion Gap BUN Creatinine Est Cr Clr Drug Dosing Est GFR ( Amer) Est GFR (Non-Af Amer) BUN/Creatinine Ratio Glucose Calcium Magnesium 1.9 Total Bilirubin AST ALT Alkaline Phosphatase Troponin I 0.071 H* Total Protein Albumin Globulin Albumin/Globulin Ratio Folate > 24.00 Ethyl Alcohol mg/dL 268.6 H 10/23/19 10/23/19 10/23/19 06:45 06:45 06:45 WBC 7.18 RBC 4.15 L Hgb 14.3 D Hct 40.7 L MCV 98.1 MCH 34.5 H MCHC 35.1 RDW Std Deviation 48.0 H RDW Coeff of [place] 13.5 Plt Count 77 L MPV 9.8 Immature Gran % (Auto) 0.1 Neut % (Auto) 69.2 Lymph % (Auto) 24.1 [place] % (Auto) 5.8 Eos % (Auto) 0.7 Baso % (Auto) 0.1 Immature Gran # (Auto) 0.01 Neut # (Auto) 4.96 Lymph # (Auto) 1.73 [place] # (Auto) 0.42 Eos # (Auto) 0.05 Baso # (Auto) 0.01 Platelet Estimate Decreased L PT 10.7 INR 1.0 Sodium 140 Potassium 3.8 Chloride 108 H Carbon Dioxide 26 Anion Gap 6.0 BUN 14 D Creatinine 0.82 Est Cr Clr Drug Dosing 106.8 Est GFR ( Amer) 113.8 Est GFR (Non-Af Amer) 98.2 BUN/Creatinine Ratio 17.0 Glucose 109 H Calcium 8.0 L Magnesium Total Bilirubin 1.0 AST 40 H ALT 35 Alkaline Phosphatase 67 Troponin I Total Protein 6.5 D Albumin 3.1 L Globulin 3.4 Albumin/Globulin Ratio 0.9 Folate Ethyl Alcohol mg/dL 10/23/19 10/23/19 06:45 15:01 WBC RBC Hgb Hct MCV MCH MCHC RDW Std Deviation RDW Coeff of [place] Plt Count MPV Immature Gran % (Auto) Neut % (Auto) Lymph % (Auto) [place] % (Auto) Eos % (Auto) Baso % (Auto) Immature Gran # (Auto) Neut # (Auto) Lymph # (Auto) [place] # (Auto) Eos # (Auto) Baso # (Auto) Platelet Estimate PT INR Sodium Potassium Chloride Carbon Dioxide Anion Gap BUN Creatinine Est Cr Clr Drug Dosing Est GFR ( Amer) Est GFR (Non-Af Amer) BUN/Creatinine Ratio Glucose Calcium Magnesium Total Bilirubin AST ALT Alkaline Phosphatase Troponin I 0.053 H* Pending Total Protein Albumin Globulin Albumin/Globulin Ratio Folate Ethyl Alcohol mg/dL Medications Administered Current Inpatient Medications Al Hydrox/Mg Hydrox/Simethicone (Maalox) 15 ml PO Q4H PRN PRN Reason: Dyspepsia Stop: 11/21/19 22:40 Ascorbic Acid (Vitamin C) 1,000 mg PO DAILY [facility] Stop: 11/22/19 08:59 Last Admin: 10/23/19 09:33 Dose: 1,000 mg Documented by: Aspirin (Ecotrin Ectab) 81 mg PO DAILY [facility] Stop: 11/22/19 08:59 Last Admin: 10/23/19 09:32 Dose: 81 mg Documented by: Atorvastatin Calcium (Lipitor) 40 mg PO DAILY [facility] Stop: 11/22/19 08:59 Last Admin: 10/23/19 09:33 Dose: 40 mg Documented by: Carvedilol (Coreg) 25 mg PO BID [facility] Stop: 11/21/19 23:14 Last Admin: 10/23/19 09:33 Dose: 25 mg Documented by: Clopidogrel Bisulfate (Plavix) 75 mg PO DAILY [facility] Stop: 11/22/19 08:59 Last Admin: 10/23/19 09:32 Dose: 75 mg Documented by: Enoxaparin Sodium (Lovenox) 40 mg SQ Q24H [facility] Stop: 11/22/19 08:59 Last Admin: 10/23/19 09:33 Dose: 40 mg Documented by: Fish Oil (Palm-3 (Purified Fish Oil)) 1 gm PO DAILY [facility] Stop: 11/22/19 08:59 Last Admin: 10/23/19 09:33 Dose: 1 gm Documented by: Folic Acid (Folvite) 1 mg PO QAM [facility] Stop: 11/22/19 08:59 Last Admin: 10/23/19 09:32 Dose: 1 mg Documented by: Gabapentin (Neurontin) 400 mg PO Q8H [facility] Stop: 10/24/19 10:01 Gabapentin (Neurontin) 400 mg PO Q12H [facility] Stop: 10/25/19 10:01 Gabapentin (Neurontin) 400 mg PO Q24H [facility] Stop: 10/26/19 10:01 Lorazepam (Ativan) 1 mg in 2 mls @ 2 mls/min IV UD PRN; Protocol PRN Reason: EtOH Withdrawl AWSS Score 6,7 Stop: 11/21/19 22:40 Last Admin: 10/23/19 01:12 Dose: 2 mls/min Documented by: Lorazepam (Ativan) 2 mg in 4 mls @ 4 mls/min IV UD PRN; Protocol PRN Reason: EtOH Withdrawl AWSS Score 8,9 Stop: 11/21/19 22:40 Last Admin: 10/22/19 23:37 Dose: 4 mls/min Documented by: Lorazepam (Ativan) 3 mg in 6 mls @ 4 mls/min IV ONCE PRN; Protocol PRN Reason: EtOH Withdrawl AWSS Score >=10 Stop: 11/21/19 22:40 Potassium Chloride/Sodium Chloride (Normal Saline W/20 Meq Kcl) 20 meq in 1,000 mls @ 125 mls/hr IV .Q8H [facility] Stop: 11/21/19 22:40 Last Admin: 10/23/19 08:02 Dose: 125 mls/hr Documented by: Lisinopril (Zestril) 40 mg PO DAILY [facility] Stop: 11/22/19 08:59 Last Admin: 10/23/19 09:33 Dose: 40 mg Documented by: Magnesium Hydroxide (Milk Of Magnesia) 30 ml PO Q12H PRN PRN Reason: Constipation Stop: 11/21/19 22:40 Metoprolol Tartrate (Lopressor) 5 mg IV Q4 PRN PRN Reason: Tachycardia Stop: 11/22/19 00:00 Last Admin: 10/22/19 23:57 Dose: 5 mg Documented by: Miscellaneous (Remove Nicoderm Patch) 1 ea N/A DAILY@[id number] [facility] Stop: 11/22/19 08:58 Last Admin: 10/23/19 08:02 Dose: 1 ea Documented by: Nicotine (Nicoderm Cq) 14 mg TD QAM [facility] Stop: 11/21/19 19:44 Last Admin: 10/23/19 09:33 Dose: 14 mg Documented by: Nitroglycerin (Nitrostat) 0.4 mg SL UD PRN PRN Reason: Chest Pain Stop: 11/21/19 23:11 Ondansetron HCl (Zofran) 4 mg IV Q6H PRN PRN Reason: Nausea Stop: 11/21/19 22:40 Thiamine HCl (Vitamin B-1) 100 mg PO QAM [facility] Stop: 11/22/19 08:59 Last Admin: 10/23/19 09:32 Dose: 100 mg Documented by: Tramadol HCl (Ultram) 100 mg PO Q12H [facility] Stop: 11/21/19 23:14 Last Admin: 10/23/19 11:43 Dose: 100 mg Documented by: Vitamin B Complex (Vitamin B Complex) 1 tab PO DAILY [facility] Stop: 11/22/19 08:59 Last Admin: 10/23/19 09:33 Dose: 1 tab Documented by: PG Care Time/CCT Total # of Minutes Spent Total Time Spent with Patient: Total time spent is greater than 50% in coordination of care (as documented) at patient's floor/unit and/or counseling patient: Coding Level of Care Code 30121 Subseq Hosp Care Lvl 2 Diagnoses Alcohol withdrawal F10.239 Complication of substance-induced condition: with unspecified complication CAD (coronary artery disease) I25.10 Tachycardia R00.0 Ischemic cardiomyopathy I25.5 HTN (hypertension) I10 Hepatitis C B19.20 History of Clostridioides difficile colitis Z86.19 (1) Alcohol withdrawal Complication of substance-induced condition: with unspecified complication Qualified Code(s): F10.239 - Alcohol dependence with withdrawal, unspecified
[2019-10-24] MEDS: GABAPENTIN 400 MG CAP PO SCH ×3 (02:35→22:21)
[2019-10-24 05:49] LABS: Hemoglobin 12.5 g/dL (14.0-18.0); Mean Corpuscular Hemoglobin 34.2 pg (25-34); Mean Corpuscular Hgb Conc 34.7 g/dL (32-36); Mean Corpuscular Volume 98.4 fL (80-100); RDW Coefficient of Variation 13.4 % (11.5-14.5); RDW Standard Deviation 48.2 fL (36.4-46.3); Red Blood Count 3.66 M/uL (4.7-6.1); White Blood Count 5.32 K/uL (4.8-10.8)
[2019-10-24 06:05] LABS: Mean Platelet Volume 9.7 fL (7.4-10.4); Platelet Count 69 K/uL (130-400); Prothrombin Time 10.7 Seconds (9.0-12.0)
[2019-10-24 06:18] LABS: Basophils # (auto) 0.01 K/uL (0-0.2); Basophils % (auto) 0.2 %; Eosinophils # (auto) 0.11 K/uL (0-0.5); Eosinophils % (auto) 2.1 %; Giant Platelets 1+; Immature Granulocytes # (auto) 0.01 K/uL (0.00-0.02); Immature Granulocytes % (auto) 0.2 %; Lymphocytes # (auto) 1.93 K/uL (1.2-3.4); Lymphocytes % (auto) 36.3 %; Monocytes # (auto) 0.38 K/uL (0.11-0.59); Monocytes % (auto) 7.1 %; Neutrophils # (auto) 2.88 K/uL (1.4-6.5); Neutrophils % (auto) 54.1 %
[2019-10-24 06:37] LABS: Albumin Level 2.8 gm/dl (3.4-5.0); BUN Creatinine Ratio 21.2 (10-20); Calcium 7.9 mg/dl (8.5-10.1); Creatinine Clr Calc Pharmacy 125.2 ml/min; Est GFR (African American) 121.4; Est GFR (Non-African American) 104.8; Potassium 3.5 mmol/L (3.5-5.1)
[2019-10-24 06:41] LABS: Albumin Globulin Ratio 0.9 (0.9-2); Bilirubin,Total 0.7 mg/dl (0.2-1); Globulin 3.2 gm/dl (2.5-4.0)
[2019-10-24] MEDS: NSS + 20MEQ KCL 20 MEQ/1,000 ML BAG IV SCH (08:36)
[2019-10-24] MEDS: ATORVASTATIN 40 MG TAB PO SCH (08:36)
[2019-10-24] MEDS: CLOPIDOGREL BISULFATE 75 MG TAB PO SCH (08:36)
[2019-10-24] MEDS: NICOTINE 14 MG/24 HR PATCH TD SCH (08:37)
[2019-10-24] MEDS: carvediloL 25 MG TAB PO SCH ×2 (08:37→22:22)
[2019-10-24] MEDS: THIAMINE HCL 100 MG TAB PO SCH (08:37)
[2019-10-24] MEDS: ASPIRIN 81 MG ECTAB PO SCH (08:37)
[2019-10-24] MEDS: FOLIC ACID 1 MG TAB PO SCH (08:37)
[2019-10-24] MEDS: OMEGA-3 (PURIFIED FISH OIL) 1 GM CAP PO SCH (08:37)
[2019-10-24] MEDS: ASCORBIC ACID 500 MG TAB PO SCH (08:37)
[2019-10-24] MEDS: lisinopriL 40 MG TAB PO SCH (08:37)
[2019-10-24] MEDS: ENOXAPARIN INJ 40 MG/0.4 ML SYR SQ SCH (08:38)
[2019-10-24] MEDS: VITAMIN B COMPLEX TAB PO SCH (08:38)
[2019-10-24] MEDS: LORazepam 1 MG/2 ML VIAL IV PRN (08:45)
[2019-10-24] MEDS: TRAMADOL HCL 50 MG TABLET PO SCH ×2 (10:34→22:28)
--- NOTE | 2019-10-24 10:40 | Hospitalist Progress Note ---
Date of Service October 24, 2019 Assessment & Plan (1) Alcohol withdrawal: Patient reported to the ED with feelings like he was going through DTs, which was likely significantly accentuated by anxiety due to an ultimatum from his that she will leave if he does not stop drinking resting for two days, no acute issues continue Gabapentin taper Ativan PRN but requiring less no tremors today downgrade to medical floor, d/c IV fluids, patient can move around the room plan to d/c to home tomorrow (2) CAD (coronary artery disease): CAD/hypertension/sinus tachycardia/ischemic cardiomyopathy/history of stented coronary artery- no chest pain, troponin was minimally elevated, no rise and fall Continue carvedilol 25 mg p.o. twice daily. downgrade to medical floor (3) Tachycardia: Sinus tachycardia on monitor and EKG resolved, HR stable in 60's today (4) Ischemic cardiomyopathy: See above examines euvolemic (5) HTN (hypertension): See above (6) Hepatitis C: Liver enzymes are actually very close to normal. With AST only mildly elevated (7) History of Clostridioides difficile colitis: No active issues at this time. Subjective patient resting comfortably, requiring less ativan, sleeping a lot c/o some pain in left hip, says this is chronic, laying is bed is making it worse discussed that we will downgrade to medical floor, he can ambulate in the room, stretch out will stop fluids, get rid of ekg monitor tech so he will be more comfortable reviewed labs, CBC and BMP stable, no electrolyte abnormalities patient committed to staying today, plan to go home tomorrow denies chest pain, dyspnea, fever/chills, nausea is eating well Review of Systems Review of Systems: All systems reviewed & are unremarkable except as noted in HPI & below Physical Exam Constitutional: WD/WN, vitals as above + overweight Eyes: PERRL, conjunctivae normal, anicteric sclerae ENMT: external ear and nose normal, oropharynx normal Neck: trachea midline, no thyromegaly Respiratory: normal respiratory effort, lungs clear to auscultation Cardiovascular: RRR, no murmur, no edema Gastrointestinal (Abdomen): normal bowel sounds, soft, nontender, no hepatosplenomegaly Musculoskeletal: no cyanosis or clubbing, extremities motor strength 5/5 Skin: no rashes, warm and dry Neurologic: patellar DTR's 2+ bilat, sensation intact and PERRL, EOMI, accommodation nl, no face palsy, no dysarthria Psychiatric: A+Ox3, euthymic affect Lymphatic: no cervical or axillary lymphadenopathy Results & Data ([facility]) Vital Signs (Past 12 Hours) Vital Signs Temp Pulse Pulse Resp BP BP Pulse Ox 10/24/19 08:00 64 10/24/19 07:04 36.5 C 67 20 144/97 H 98 10/24/19 04:15 36.5 C 71 20 143/93 H 97 10/23/19 23:50 36.9 C 72 20 167/105 H 99 10/23/19 23:35 89 Laboratory Results Laboratory Results - last 24 hr 10/23/19 10/24/19 10/24/19 15:01 05:31 05:31 WBC 5.32 RBC 3.66 L Hgb 12.5 L Hct 36.0 L MCV 98.4 MCH 34.2 H MCHC 34.7 RDW Std Deviation 48.2 H RDW Coeff of [place] 13.4 Plt Count 69 L MPV 9.7 Immature Gran % (Auto) 0.2 Neut % (Auto) 54.1 Lymph % (Auto) 36.3 [place] % (Auto) 7.1 Eos % (Auto) 2.1 Baso % (Auto) 0.2 Immature Gran # (Auto) 0.01 Neut # (Auto) 2.88 Lymph # (Auto) 1.93 [place] # (Auto) 0.38 Eos # (Auto) 0.11 Baso # (Auto) 0.01 Giant Platelets 1+ PT 10.7 INR 1.0 Sodium Potassium Chloride Carbon Dioxide Anion Gap BUN Creatinine Est Cr Clr Drug Dosing Est GFR ( Amer) Est GFR (Non-Af Amer) BUN/Creatinine Ratio Glucose Calcium Total Bilirubin AST ALT Alkaline Phosphatase Troponin I 0.030 Total Protein Albumin Globulin Albumin/Globulin Ratio 10/24/19 05:31 WBC RBC Hgb Hct MCV MCH MCHC RDW Std Deviation RDW Coeff of [place] Plt Count MPV Immature Gran % (Auto) Neut % (Auto) Lymph % (Auto) [place] % (Auto) Eos % (Auto) Baso % (Auto) Immature Gran # (Auto) Neut # (Auto) Lymph # (Auto) [place] # (Auto) Eos # (Auto) Baso # (Auto) Giant Platelets PT INR Sodium 139 Potassium 3.5 Chloride 109 H Carbon Dioxide 26 Anion Gap 4.0 BUN 15 Creatinine 0.70 Est Cr Clr Drug Dosing 125.2 Est GFR ( Amer) 121.4 Est GFR (Non-Af Amer) 104.8 BUN/Creatinine Ratio 21.2 H Glucose 112 H Calcium 7.9 L Total Bilirubin 0.7 AST 29 ALT 30 Alkaline Phosphatase 66 Troponin I Total Protein 6.0 L Albumin 2.8 L Globulin 3.2 Albumin/Globulin Ratio 0.9 Medications Administered Current Inpatient Medications Al Hydrox/Mg Hydrox/Simethicone (Maalox) 15 ml PO Q4H PRN PRN Reason: Dyspepsia Stop: 11/21/19 22:40 Ascorbic Acid (Vitamin C) 1,000 mg PO DAILY [facility] Stop: 11/22/19 08:59 Last Admin: 10/24/19 08:37 Dose: 1,000 mg Documented by: Aspirin (Ecotrin Ectab) 81 mg PO DAILY [facility] Stop: 11/22/19 08:59 Last Admin: 10/24/19 08:37 Dose: 81 mg Documented by: Atorvastatin Calcium (Lipitor) 40 mg PO DAILY [facility] Stop: 11/22/19 08:59 Last Admin: 10/24/19 08:36 Dose: 40 mg Documented by: Carvedilol (Coreg) 25 mg PO BID [facility] Stop: 11/21/19 23:14 Last Admin: 10/24/19 08:37 Dose: 25 mg Documented by: Clopidogrel Bisulfate (Plavix) 75 mg PO DAILY [facility] Stop: 11/22/19 08:59 Last Admin: 10/24/19 08:36 Dose: 75 mg Documented by: Enoxaparin Sodium (Lovenox) 40 mg SQ Q24H [facility] Stop: 11/22/19 08:59 Last Admin: 10/24/19 08:38 Dose: 40 mg Documented by: Fish Oil ([place]-3 (Purified Fish Oil)) 1 gm PO DAILY [facility] Stop: 11/22/19 08:59 Last Admin: 10/24/19 08:37 Dose: 1 gm Documented by: Folic Acid (Folvite) 1 mg PO QAM [facility] Stop: 11/22/19 08:59 Last Admin: 10/24/19 08:37 Dose: 1 mg Documented by: Gabapentin (Neurontin) 400 mg PO Q12H [facility] Stop: 10/25/19 10:01 Gabapentin (Neurontin) 400 mg PO Q24H [facility] Stop: 10/26/19 10:01 Lorazepam (Ativan) 1 mg in 2 mls @ 2 mls/min IV UD PRN; Protocol PRN Reason: EtOH Withdrawl AWSS Score 6,7 Stop: 11/21/19 22:40 Last Admin: 10/24/19 08:45 Dose: 2 mls/min Documented by: Lorazepam (Ativan) 2 mg in 4 mls @ 4 mls/min IV UD PRN; Protocol PRN Reason: EtOH Withdrawl AWSS Score 8,9 Stop: 11/21/19 22:40 Last Admin: 10/22/19 23:37 Dose: 4 mls/min Documented by: Lorazepam (Ativan) 3 mg in 6 mls @ 4 mls/min IV ONCE PRN; Protocol PRN Reason: EtOH Withdrawl AWSS Score >=10 Stop: 11/21/19 22:40 Potassium Chloride/Sodium Chloride (Normal Saline W/20 Meq Kcl) 20 meq in 1,000 mls @ 125 mls/hr IV .Q8H [facility] Stop: 11/21/19 22:40 Last Infusion: 10/24/19 10:31 Dose: Infused Documented by: Lisinopril (Zestril) 40 mg PO DAILY [facility] Stop: 11/22/19 08:59 Last Admin: 10/24/19 08:37 Dose: 40 mg Documented by: Magnesium Hydroxide (Milk Of Magnesia) 30 ml PO Q12H PRN PRN Reason: Constipation Stop: 11/21/19 22:40 Metoprolol Tartrate (Lopressor) 5 mg IV Q4 PRN PRN Reason: Tachycardia Stop: 11/22/19 00:00 Last Admin: 10/22/19 23:57 Dose: 5 mg Documented by: Miscellaneous (Remove Nicoderm Patch) 1 ea N/A DAILY@59 [facility] Stop: 11/22/19 08:58 Last Admin: 10/24/19 08:36 Dose: 1 ea Documented by: Nicotine (Nicoderm Cq) 14 mg TD QAM [facility] Stop: 11/21/19 19:44 Last Admin: 10/24/19 08:37 Dose: 14 mg Documented by: Nitroglycerin (Nitrostat) 0.4 mg SL UD PRN PRN Reason: Chest Pain Stop: 11/21/19 23:11 Ondansetron HCl (Zofran) 4 mg IV Q6H PRN PRN Reason: Nausea Stop: 11/21/19 22:40 Thiamine HCl (Vitamin B-1) 100 mg PO QAM [facility] Stop: 11/22/19 08:59 Last Admin: 10/24/19 08:37 Dose: 100 mg Documented by: Tramadol HCl (Ultram) 100 mg PO Q12H [facility] Stop: 11/21/19 23:14 Last Admin: 10/24/19 10:34 Dose: 100 mg Documented by: Vitamin B Complex (Vitamin B Complex) 1 tab PO DAILY [facility] Stop: 11/22/19 08:59 Last Admin: 10/24/19 08:38 Dose: 1 tab Documented by: PG Care Time/CCT Total # of Minutes Spent Total Time Spent with Patient: Total time spent is greater than 50% in coordination of care (as documented) at patient's floor/unit and/or counseling patient: Coding Level of Care Code 18922 Subseq Hosp Care Lvl 2 Diagnoses Alcohol withdrawal F10.239 Complication of substance-induced condition: with unspecified complication CAD (coronary artery disease) I25.10 Tachycardia R00.0 Ischemic cardiomyopathy I25.5 HTN (hypertension) I10 Hepatitis C B19.20 History of Clostridioides difficile colitis Z86.19 (1) Alcohol withdrawal Complication of substance-induced condition: with unspecified complication Qualified Code(s): F10.239 - Alcohol dependence with withdrawal, unspecified
--- NOTE | 2019-10-24 14:24 | Electrocardiogram Report ---
Test Reason : Blood Pressure : / mmHG Vent. Rate : 061 BPM Atrial Rate : 061 BPM P-R Int : 162 ms QRS Dur : 096 ms QT Int : 444 ms P-R-T Axes : 014 -32 -05 degrees QTc Int : 446 ms Normal sinus rhythm Left axis deviation Abnormal ECG When compared with ECG of 23-OCT-2019 06:32, No significant change was found Confirmed by Jayant Gross ([id number]) on 10/24/2019 2:23:48 PM Referred By: REFERRED SELF Confirmed By:Jayant Gross
[2019-10-24] MEDS ORDERED: LORazepam 1 MG TAB PO STA (18:47)
[2019-10-24] MEDS ORDERED: HydrALAZINE HCL 20 MG/ML VIAL IV STA (22:52)
[2019-10-25] MEDS ORDERED: TRAZODONE HCL 50 MG TAB PO ONE (03:46)
[2019-10-25] MEDS ORDERED: KETOROLAC TROMETHAMINE 15 MG/ML VIAL IV ONE (03:46)
[2019-10-25] MEDS ORDERED: KETOROLAC 30 MG/ML VIAL IV ONE (07:47)
[2019-10-25] MEDS: GABAPENTIN 400 MG CAP PO SCH (08:57)
[2019-10-25] MEDS: ATORVASTATIN 40 MG TAB PO SCH (08:57)
[2019-10-25] MEDS: CLOPIDOGREL BISULFATE 75 MG TAB PO SCH (08:57)
[2019-10-25] MEDS: carvediloL 25 MG TAB PO SCH (08:58)
[2019-10-25] MEDS: VITAMIN B COMPLEX TAB PO SCH (08:58)
[2019-10-25] MEDS: ASPIRIN 81 MG ECTAB PO SCH (08:58)
[2019-10-25] MEDS: lisinopriL 40 MG TAB PO SCH (08:58)
[2019-10-25] MEDS: OMEGA-3 (PURIFIED FISH OIL) 1 GM CAP PO SCH (08:58)
[2019-10-25] MEDS: THIAMINE HCL 100 MG TAB PO SCH (08:58)
[2019-10-25] MEDS: FOLIC ACID 1 MG TAB PO SCH (08:58)
[2019-10-25] MEDS: ASCORBIC ACID 500 MG TAB PO SCH (08:58)
[2019-10-25] MEDS: ENOXAPARIN INJ 40 MG/0.4 ML SYR SQ SCH (08:58)
[2019-10-25] MEDS: NICOTINE 14 MG/24 HR PATCH TD SCH (08:59)
--- NOTE | 2019-10-25 10:51 | Discharge Summary ---
Date of Service October 25, 2019 Admission HPI Per Admitting Provider The patient is a 59-year-old male with a past medical history including hypertension, alcohol withdrawal, ischemic cardiomyopathy, CAD with history of coronary artery stent, history of C. difficile colitis, CAD, hepatitis C, obesity, renal artery stenosis and hypertension. He reports that he had been off of alcohol for 19 years, however, since he is resumed again, he was threatened by his to either stop drinking or she was going to leave him, and thus he presents the emergency department with feelings of DTs, withdrawal, and is very anxious and stressed. He reports that he has been drinking on a daily basis, including today. 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 Principal Diagnosis Alcohol abuse with acute withdrawal Discharge Exam Constitutional WD/WN, vitals as above + overweight Eyes PERRL, conjunctivae normal, anicteric sclerae ENMT external ear and nose normal, oropharynx normal Neck trachea midline, no thyromegaly Respiratory normal respiratory effort, lungs clear to auscultation Cardiovascular RRR, no murmur, no edema Gastrointestinal (Abdomen) normal bowel sounds, soft, nontender, no hepatosplenomegaly Musculoskeletal no cyanosis or clubbing, extremities motor strength 5/5 Skin no rashes, warm and dry Neurologic patellar DTR's 2+ bilat, sensation intact and PERRL, EOMI, accommodation nl, no face palsy, no dysarthria Psychiatric A+Ox3, euthymic affect Lymphatic no cervical or axillary lymphadenopathy Discharge Data Allergies Allergy/AdvReac Type Severity Reaction Status Date / Time No Known Allergies Allergy Unverified 10/22/19 21:51 Consultations 10/22/19 20:49 ED Decision to Admit Stat 10/22/19 22:41 Consult Case Management - Discharge Planning Routine Hospital Course (1) Alcohol withdrawal: Patient reported to the ED with feelings like he was going through DTs, which was likely significantly accentuated by anxiety due to an ultimatum from his that she will leave if he does not stop drinking resting for three days, no acute issues continue Gabapentin taper for two more days Ativan 1mg PO BID PRN, gave 10 tablets no tremors today eating and drinking well, feels ready for d/c has plans to follow up immediately with AA, has good support (2) CAD (coronary artery disease): CAD/hypertension/sinus tachycardia/ischemic cardiomyopathy/history of stented coronary artery- no chest pain, troponin was minimally elevated, no rise and fall Continue carvedilol 25 mg p.o. twice daily. downgraded to medical floor (3) Tachycardia: Sinus tachycardia on monitor and EKG resolved, HR stable in 60's for three days (4) Ischemic cardiomyopathy: See above examines euvolemic (5) HTN (hypertension): See above (6) Hepatitis C: Liver enzymes are actually very close to normal. With AST only mildly elevated (7) History of Clostridioides difficile colitis: No active issues at this time. Total Time Total Time Spent Total Time Spent (In Minutes): 32 minutes Total Time Includes: Examination of the Patient, Discharge Planning and Medication Reconciliation Discharge Plan Discharge Items Patient Disposition: Home - Self-Care Reason For Visit: ALCOHOL WITHDRAWAL, SINUS TACHYCARDIA, ICM Discharge Diagnosis: Alcohol abuse and withdrawal Anxiety Condition on Discharge: Good Goals: follow up closely with AA, support groups to stay sober complete Gabapentin taper Activity: Resume your previous activity Driving/Machine Use: Resume 1 day after discharge Weightbearing: Full weightbearing Non-emergency contact: Primary Care Provider Call non-emergency contact if: you have any medication questions and your symptoms worsen Follow-up/Referrals: Royer Henry III, MD [Primary Care Provider] - 11/01/19 10:30 am (WITH LUIS F FLORES) Diet: Heart Healthy Addtl Attending Provider Instructions: Medications: - GABAPENTIN: continue 400mg daily x 2 more days, tomorrow morning and next morning - ATIVAN: short course to use as needed for any tremors or anxiety Alcohol withdrawal getting through withdrawal symptoms, safe for discharge use the Gabapentin and Ativan as prescribed Alcohol abuse follow up very closely with AA and other support groups to remain sober follow up with Dr. Henry in one week Pending Studies at Discharge: No Stand-Alone Forms: My [email or web address], Smoking Cessation Medications and DC Order Prescriptions: New gabapentin 400 mg Capsule 400 mg PO Q24H 2 Days Qty: 2 RF: 0 lorazepam 1 mg tablet 1 mg PO BID PRN (Reason: anxiety) Qty: 10 RF: 0 Continued carvedilol 25 mg tablet 25 mg PO BID Qty: 60 RF: 5 clopidogrel 75 mg tablet 75 mg PO DAILY Qty: 30 RF: 2 tramadol 50 mg tablet 100 mg PO Q12H Qty: 120 RF: 0 atorvastatin [Lipitor] 40 mg tablet 40 mg PO DAILY RF: 0 folic acid 400 mcg tablet 0.4 mg PO DAILY RF: 0 lisinopril 40 mg tablet 40 mg PO DAILY Qty: 1 RF: 0 milk thistle 500 mg Capsule 1,000 mg PO BID RF: 0 aspirin [Aspir-Low] 81 mg Tablet,Delayed Release (Dr/Ec) 81 mg PO DAILY RF: 0 ascorbic acid (vitamin C) [Vitamin C] 500 mg Tablet 1,000 mg PO DAILY RF: 0 nitroglycerin [Nitrostat] 0.4 mg Tablet, Sublingual 0.4 mg sublingual UD PRN (Reason: Chest Pain) RF: 0 vitamin B complex Tablet 1 tab PO DAILY RF: 0 glucosamine-chondroitin [Osteo Bi-Flex] 250-200 mg Tablet 1 tab PO BID RF: 0 coenzyme Q10 [Co Q-10] 200 mg Capsule 200 mg PO DAILY RF: 0 [place]-3 350 mg-235 mg- 90 mg-597 mg Capsule,Delayed Release(Dr/Ec) 1 cap PO DAILY RF: 0 L-Arginine Pill 500 mg PO DAILY RF: 0 Discharge Orders: Discharge Order (Routine); Ordered 10/25/19 Ordered By: David Herrera/Other Patient Handouts: Addiction Disease, Alcoholism, Alcoholism Myths Facts, Alcoholism How to be Part of the Solution, Alcoholism Resources for Family and Friends, Alcoholism Get Help, Addiction Get Help, Addiction Recovery, Addiction Recovery Counseling, Addiction Recovery [place] [facility] Relapse Admission Data Admit Date/Time: 10/22/19 21:38 Attending Provider: David Ackerman Admit Provider: Rg Nuñez Primary Care Provider: Royer Henry III Other Providers: Rg Nuñez Other Interventions: Discharge Summary Assessment (RN) Last Done: 10/25/19 10:55 DC Date/Time DO NOT enter until pt leaves facility: 10/25/19 12:44 Coding Level of Care Code D/C Day Management >30 mins Diagnoses Alcohol withdrawal F10.239 Complication of substance-induced condition: with unspecified complication CAD (coronary artery disease) I25.10 Tachycardia R00.0 Ischemic cardiomyopathy I25.5 HTN (hypertension) I10 Hepatitis C B19.20 History of Clostridioides difficile colitis Z86.19
[2019-10-26] MEDS ORDERED: GABAPENTIN 400 MG CAP PO SCH (10:00)
== END 2019-10-25 12:44 | disposition home or self-care (01) | DRG 897 ==
LOC: ED 18:25 → SUATTDRO 21:38 → 2S 21:38 → 3W 10-24 12:15

== ENCOUNTER 2019-11-20 00:12 | Inpatient (IN) ==
[2019-11-20] MEDS ORDERED: MULTI-VITAMIN INFUSION 10 ML, THIAMINE HCL 100 MG, FOLIC ACID 1 MG in SODIUM CHLORIDE 0... IV ONE (00:32)
[2019-11-20] MEDS ORDERED: LORazepam 1 MG/2 ML VIAL IV STA ×3 (00:32→09:54)
[2019-11-20 01:12] LABS: Basophils # (auto) 0.01 K/uL (0-0.2); Basophils % (auto) 0.2 %; Eosinophils # (auto) 0.03 K/uL (0-0.5); Eosinophils % (auto) 0.5 %; Hematocrit (blood only) 43.6 % (42-52); Hemoglobin 15.5 g/dL (14.0-18.0); Immature Granulocytes # (auto) 0.01 K/uL (0.00-0.02); Immature Granulocytes % (auto) 0.2 %; Lymphocytes % (auto) 35.7 %; Mean Corpuscular Hemoglobin 34.8 pg (25-34); Mean Corpuscular Hgb Conc 35.6 g/dL (32-36); Mean Platelet Volume 9.3 fL (7.4-10.4); Monocytes # (auto) 0.45 K/uL (0.11-0.59); Neutrophils # (auto) 3.65 K/uL (1.4-6.5); Neutrophils % (auto) 56.4 %; Platelet Count 152 K/uL (130-400); RDW Coefficient of Variation 13.6 % (11.5-14.5); Red Blood Count 4.45 M/uL (4.7-6.1); White Blood Count 6.45 K/uL (4.8-10.8)
[2019-11-20 01:26] LABS: Partial Thromboplastin Time 26.3 Seconds (21.0-31.0)
[2019-11-20 01:30] LABS: Alanine Aminotransferase 50 U/L (12-78); Albumin Level 3.7 gm/dl (3.4-5.0); Aspartate Aminotransferase 43 U/L (15-37); BUN Creatinine Ratio 13.7 (10-20); Blood Urea Nitrogen 10 mg/dl (7-18); Calcium 8.3 mg/dl (8.5-10.1); Carbon Dioxide 21 mmol/L (21-32); Chloride 107 mmol/L (98-107); Est GFR (Non-African American) 103.6; Glucose 99 mg/dl (70-99); Lipase 165 U/L (73-393); Potassium 3.8 mmol/L (3.5-5.1); Sodium 141 mmol/L (136-145)
[2019-11-20 01:41] LABS: Albumin Globulin Ratio 0.9 (0.9-2); Alkaline Phosphatase 68 U/L (45-117); Bilirubin,Total 0.4 mg/dl (0.2-1); Globulin 4.1 gm/dl (2.5-4.0); Total Protein 7.8 gm/dl (6.4-8.2); Troponin I 0.041 ng/ml (0-0.045)
[2019-11-20] MEDS ORDERED: NICOTINE 21 MG/24 HR TDSY TD STA (01:46)
[2019-11-20] MEDS ORDERED: SODIUM CHLORIDE 0.9% 1000ML 1,000 ML IV SCH (02:00)
[2019-11-20] MEDS ORDERED: INFLUENZA VIRUS QUAD VACCINE 0.5 ML SYR IM ONE (03:17)
[2019-11-20] MEDS ORDERED: INFLUENZA ADMINISTRATION CHARGE ONE (03:17)
[2019-11-20] MEDS ORDERED: LORazepam 1 MG TAB PO PRN (04:21)
[2019-11-20] MEDS ORDERED: NITROGLYCERIN SL 0.4 MG/TAB TAB SL PRN (04:21)
[2019-11-20] MEDS: LORAZEPAM 1MG IV ACTIVE PROTOCOL IV PRN ×6 (04:46→22:10)
[2019-11-20] MEDS: NSS + 20MEQ KCL 20 MEQ/1,000 ML BAG IV SCH ×3 (04:46→19:05)
[2019-11-20 04:50] LABS: Appearance Urine Clear (Clear); Bilirubin Urine Negative (Negative); Blood Urine Negative (Negative); Color Urine Yellow; Glucose Urine UA Negative (Negative); Ketones Urine Negative (Negative); Leukocyte Esterase Urine Negative (Negative); Nitrite Urine Negative (Negative); Protein Urine Negative (Negative); Specific Gravity Urine 1.018 (1.000-1.030); Urobilinogen Urine Negative (Negative)
--- NOTE | 2019-11-20 05:07 | History & Physical Report ---
Date of Service November 20, 2019 Assessment & Plan (1) Alcohol withdrawal: Placed on AWSS scale with Ativan per protocol. Continue vitamin B complex, folic acid and coenzyme Q 10. Add thiamine 100 mg daily. Present on Admission?: Yes (2) CAD (coronary artery disease): CAD/ischemic cardiomyopathy/hypertension/tachycardia- Received 2 L of normal saline in the ED. Continue with NSS + KCl 20 mEq at 150 mils per hour. Follow serial troponins and watch for rhythm disturbances. Continue aspirin, carvedilol, clopidogrel and nitroglycerin sublingual's. Present on Admission?: Yes (3) Ischemic cardiomyopathy: See above Present on Admission?: Yes (4) Hypertension: See above Present on Admission?: Yes (5) Tachycardia: See above Present on Admission?: Yes (6) Hepatitis C: Normal LFTs upon admission, can follow serially. This condition followed in the outpatient setting. Present on Admission?: Yes (7) Hyperlipidemia LDL goal <70: Continue atorvastatin 40 mg daily. Present on Admission?: Yes History of Present Illness Chief Complaint: The patient presents to the emergency department with concerns regarding alcohol withdrawal. Primary Care Provider: Royer Henry MD The patient is a 59-year-old male with a past medical history including alcoholism, alcohol withdrawal, hypertension, ischemic cardiomyopathy, C. difficile colitis, history of GI bleed, CAD, hepatitis C, renal artery stenosis and hypertension. He presents to the emergency department with concerns regarding alcohol withdrawal, and has been advised by his that he either needs to get help or she will leave him. He reports that he drinks an average of 12 beers daily. His alcohol level upon arrival in the ED was 319.1, which she was surprised that. Allergies Allergy/AdvReac Type Severity Reaction Status Date / Time No Known Allergies Allergy Unverified 11/20/19 01:13 Home Medications Home Medications Medication Instructions Recorded Confirmed Type atorvastatin 40 mg tablet 40 mg PO DAILY 04/23/19 11/20/19 History folic acid 400 mcg tablet 0.4 mg PO DAILY tab 04/23/19 11/20/19 History lisinopril 40 mg tablet 40 mg PO DAILY #1 tab 04/23/19 11/20/19 History carvedilol 25 mg tablet 25 mg PO BID #60 tab 05/17/19 11/20/19 Rx clopidogrel 75 mg tablet 75 mg PO DAILY #30 tab 08/21/19 11/20/19 Rx [place]-3 1 cap PO DAILY 10/22/19 11/20/19 History ascorbic acid (vitamin C) [Vitamin 1,000 mg PO DAILY 10/22/19 11/20/19 History C] aspirin [Aspir-Low] 81 mg PO DAILY 10/22/19 11/20/19 History coenzyme Q10 [Co Q-10] 200 mg PO DAILY 10/22/19 11/20/19 History glucosamine-chondroitin [Osteo 1 tab PO BID 10/22/19 11/20/19 History Bi-Flex] milk thistle 1,000 mg PO BID 10/22/19 11/20/19 History nitroglycerin [Nitrostat] 0.4 mg SUBLINGUAL UD PRN 10/22/19 11/20/19 History vitamin B complex 1 tab PO DAILY 10/22/19 11/20/19 History acetaminophen 300 mg-codeine 30 mg 1 tab PO TID PRN #90 tab 11/01/19 11/20/19 Rx tablet meloxicam 15 mg tablet 15 mg PO DAILY #30 tab 11/01/19 11/20/19 Rx Past Med/Surg History Social History Preferred Language: Yi Communication Ability: Effective 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 Beliefs That Will Affect Care: None marital status: Current Living Situation: Spouse Feels Safe at Home: Yes Smoking Status: Current every day smoker Tobacco Type: cigarettes ; Cigarettes Per Day: 20 ; Second Hand Exposure: Yes ; Tobacco Cessation Education Requested by Patient: No Hx Alcohol Use: Yes Alcohol type: beer Hx Substance Use: Yes substance use type: crack/cocaine Substance Use Type Other:: in the 's Review of Systems Review of Systems: The patient denies chest pain, cough, lower extremity swelling, sore throat, fevers, chills, sweats, nausea, vomiting, diarrhea , constipation, abdominal pain, pelvic pain, blood in urine or stool, dysuria, urinary frequency or urgency, headache, memory loss, loss of consciousness, rash, abnormal bruising or bleeding, imbalance, focal or generalized weakness, numbness or tingling in arms or legs, generalized arthralgias or myalgias, back or neck pain, or night sweats. The review of systems is otherwise negative other than for that already noted above, and at least 10 systems have been reviewed. Physical Exam Physical Exam: The patient is awake, alert and oriented 3, normocephalic and atraumatic, lying in bed and in no acute distress. HEENT--PERRL, EOMI, mucous membranes and oropharynx dry. Neck--supple. No JVD. No bruits. Thyroid normal, trachea midline, no adenopathy. Heart--normal S1 and S2. No murmurs, rubs or gallops. Lungs--clear bilaterally, no respiratory distress, no accessory muscle use. Abdomen--normal bowel sounds and soft. Nontender. Nondistended, obese. Extremities--no cyanosis or clubbing. No edema. Dermatologic--normal skin turgor, normal color, no abnormal lymph nodes, no rash. Neurologic--cranial nerves II through XII grossly intact. Rheumatologic--normal range of motion. Psychiatric--normal affect. Results & Data Vital Signs (Past 12 Hours) Vital Signs Temp Pulse Pulse Resp BP BP Pulse Ox 11/20/19 04:27 98.2 F 120 H 18 153/113 H 93 11/20/19 03:31 117 H 18 11/20/19 03:30 98.6 F 117 H 24 163/107 H 90 11/20/19 03:20 115 H 17 94 11/20/19 03:10 42 H 95 11/20/19 03:01 97 11/20/19 03:00 15 95 11/20/19 02:50 23 93 11/20/19 02:40 25 H 93 11/20/19 02:30 126 H 20 92 11/20/19 02:20 120 H 23 91 11/20/19 02:10 124 H 25 H 94 11/20/19 02:02 128 H 20 112/85 92 11/20/19 02:00 126 H 25 H 112/85 97 11/20/19 01:50 128 H 16 94 11/20/19 01:40 133 H 22 91 11/20/19 01:31 129 H 26 H 92 11/20/19 01:30 129 H 20 130/96 96 11/20/19 01:20 135 H 22 93 11/20/19 01:11 97 11/20/19 01:10 133 H 14 94 11/20/19 01:01 136 H 17 95 11/20/19 01:00 135 H 23 143/103 H 95 11/20/19 00:50 138 H 16 96 11/20/19 00:40 132 H 27 H 94 11/20/19 00:30 139 H 17 95 11/20/19 00:20 99.0 F 150 H 20 144/101 H 96 Laboratory Results Laboratory Results WBC 6.45 K/uL (4.8-10.8) 11/20/19 01:00 RBC 4.45 M/uL (4.7-6.1) L 11/20/19 01:00 Hgb 15.5 g/dL (14.0-18.0) 11/20/19 01:00 Hct 43.6 % (42-52) 11/20/19 01:00 MCV 98.0 fL (80-100) 11/20/19 01:00 MCH 34.8 pg (25-34) H 11/20/19 01:00 MCHC 35.6 g/dL (32-36) 11/20/19 01:00 RDW Std Deviation 49.0 fL (36.4-46.3) H 11/20/19 01:00 RDW Coeff of [place] 13.6 % (11.5-14.5) 11/20/19 01:00 Plt Count 152 K/uL (130-400) 11/20/19 01:00 MPV 9.3 fL (7.4-10.4) 11/20/19 01:00 Immature Gran % (Auto) 0.2 % 11/20/19 01:00 Neut % (Auto) 56.4 % 11/20/19 01:00 Lymph % (Auto) 35.7 % 11/20/19 01:00 Gaines % (Auto) 7.0 % 11/20/19 01:00 Eos % (Auto) 0.5 % 11/20/19 01:00 Baso % (Auto) 0.2 % 11/20/19 01:00 Immature Gran # (Auto) 0.01 K/uL (0.00-0.02) 11/20/19 01:00 Neut # (Auto) 3.65 K/uL (1.4-6.5) 11/20/19 01:00 Lymph # (Auto) 2.30 K/uL (1.2-3.4) 11/20/19 01:00 Gaines # (Auto) 0.45 K/uL (0.11-0.59) 11/20/19 01:00 Eos # (Auto) 0.03 K/uL (0-0.5) 11/20/19 01:00 Baso # (Auto) 0.01 K/uL (0-0.2) 11/20/19 01:00 PT 10.0 Seconds (9.0-12.0) 11/20/19 01:00 INR 1.0 (0.9-1.1) 11/20/19 01:00 APTT 26.3 Seconds (21.0-31.0) 11/20/19 01:00 PTT Ratio 1.0 11/20/19 01:00 Sodium 141 mmol/L (136-145) 11/20/19 01:00 Potassium 3.8 mmol/L (3.5-5.1) 11/20/19 01:00 Chloride 107 mmol/L (98-107) 11/20/19 01:00 Carbon Dioxide 21 mmol/L (21-32) 11/20/19 01:00 Anion Gap 13.0 (3-11) H 11/20/19 01:00 BUN 10 mg/dl (7-18) 11/20/19 01:00 Creatinine 0.72 mg/dl (0.6-1.4) 11/20/19 01:00 Est Cr Clr Drug Dosing Not Reportable 11/20/19 01:00 Est GFR ( Amer) 120.0 11/20/19 01:00 Est GFR (Non-Af Amer) 103.6 11/20/19 01:00 BUN/Creatinine Ratio 13.7 (10-20) 11/20/19 01:00 Glucose 99 mg/dl (70-99) 11/20/19 01:00 Lactate 2.4 mmol/L (0.4-2.0) H* 11/20/19 03:17 Calcium 8.3 mg/dl (8.5-10.1) L 11/20/19 01:00 Magnesium 2.0 mg/dl (1.8-2.4) 11/20/19 01:00 Total Bilirubin 0.4 mg/dl (0.2-1) 11/20/19 01:00 AST 43 U/L (15-37) H 11/20/19 01:00 ALT 50 U/L (12-78) 11/20/19 01:00 Alkaline Phosphatase 68 U/L (45-117) 11/20/19 01:00 Troponin I 0.041 ng/ml (0-0.045) 11/20/19 01:00 Total Protein 7.8 gm/dl (6.4-8.2) 11/20/19 01:00 Albumin 3.7 gm/dl (3.4-5.0) 11/20/19 01:00 Globulin 4.1 gm/dl (2.5-4.0) H 11/20/19 01:00 Albumin/Globulin Ratio 0.9 (0.9-2) 11/20/19 01:00 Lipase 165 U/L (73-393) 11/20/19 01:00 TSH 2.840 uIu/ml (0.300-4.500) 11/20/19 01:00 Urine Color Yellow 11/20/19 04:20 Urine Appearance Clear (Clear) 11/20/19 04:20 Urine pH 5.0 (4.5-7.5) 11/20/19 04:20 Ur Specific [place] 1.018 (1.000-1.030) 11/20/19 04:20 Urine Protein Negative (Negative) 11/20/19 04:20 Urine Glucose (UA) Negative (Negative) 11/20/19 04:20 Urine Ketones Negative (Negative) 11/20/19 04:20 Urine Blood Negative (Negative) 11/20/19 04:20 Urine Nitrite Negative (Negative) 11/20/19 04:20 Urine Bilirubin Negative (Negative) 11/20/19 04:20 Urine Urobilinogen Negative (Negative) 11/20/19 04:20 Ur Leukocyte Esterase Negative (Negative) 11/20/19 04:20 Ethyl Alcohol mg/dL 319.1 mg/dl (0-3) H 11/20/19 01:00 Code Status & VTE Plan Code Status Full code VTE Prophylaxis Plan VTE Prophylaxis will be ordered: Yes PG Care Time/CCT Total # of Minutes Spent Total Time Spent with Patient: Total time spent is greater than 50% in coordination of care (as documented) at patient's floor/unit and/or counseling patient: Coding Level of Care Code 74981 Initial In Care Lvl 3 Diagnoses Alcohol withdrawal F10.239 Complication of substance-induced condition: with unspecified complication CAD (coronary artery disease) I25.10 Ischemic cardiomyopathy I25.5 Hypertension I10 Hypertension type: unspecified Tachycardia R00.0 Hepatitis C B19.20 Hyperlipidemia LDL goal <70 E78.5 (1) Alcohol withdrawal Complication of substance-induced condition: with unspecified complication Qualified Code(s): F10.239 - Alcohol dependence with withdrawal, unspecified (2) Hypertension Hypertension type: unspecified Qualified Code(s): I10 - Essential (primary) hypertension
[2019-11-20 05:09] LABS: Amphetamines+Metham, Urine Neg (Neg); Barbiturates, Urine Neg (Neg); Benzodiazepine, Urine Neg (Neg); Cocaine, Urine Neg (Neg); MDMA (Ecstacy), Urine Neg (Neg); Methadone, Urine Neg (Neg); Opiate, Urine Pos (Neg); Phencyclidine, Urine Neg (Neg)
[2019-11-20 05:16] LABS: Basophils # (auto) 0.01 K/uL (0-0.2); Basophils % (auto) 0.2 %; Eosinophils # (auto) 0.03 K/uL (0-0.5); Eosinophils % (auto) 0.6 %; Hematocrit (blood only) 40.5 % (42-52); Hemoglobin 14.1 g/dL (14.0-18.0); Immature Granulocytes # (auto) 0.01 K/uL (0.00-0.02); Immature Granulocytes % (auto) 0.2 %; Lymphocytes # (auto) 2.05 K/uL (1.2-3.4); Lymphocytes % (auto) 37.7 %; Mean Corpuscular Hemoglobin 34.6 pg (25-34); Mean Corpuscular Hgb Conc 34.8 g/dL (32-36); Mean Corpuscular Volume 99.5 fL (80-100); Mean Platelet Volume 9.4 fL (7.4-10.4); Monocytes # (auto) 0.41 K/uL (0.11-0.59); Monocytes % (auto) 7.5 %; Neutrophils # (auto) 2.93 K/uL (1.4-6.5); Neutrophils % (auto) 53.8 %; Platelet Count 126 K/uL (130-400); RDW Coefficient of Variation 13.6 % (11.5-14.5); RDW Standard Deviation 49.3 fL (36.4-46.3); Red Blood Count 4.07 M/uL (4.7-6.1); White Blood Count 5.44 K/uL (4.8-10.8)
[2019-11-20 05:43] LABS: Albumin Level 3.2 gm/dl (3.4-5.0); BUN Creatinine Ratio 15.5 (10-20); Calcium 7.4 mg/dl (8.5-10.1); Creatinine Clr Calc Pharmacy 144.9 ml/min; Est GFR (African American) 128.5; Est GFR (Non-African American) 110.9; Potassium 3.5 mmol/L (3.5-5.1)
[2019-11-20 05:46] LABS: Albumin Globulin Ratio 0.9 (0.9-2); Bilirubin,Total 0.3 mg/dl (0.2-1); Globulin 3.6 gm/dl (2.5-4.0); Phosphorus 3.1 mg/dl (2.5-4.9); Total Protein 6.8 gm/dl (6.4-8.2)
--- NOTE | 2019-11-20 06:15 | Emergency Department Note ---
History of Present Illness General Chief complaint: Alcohol Withdrawal Stated complaint: ALCOHOL RELAPSE Time Seen by Provider: 11/20/19 00:26 History of Present Illness Maximum Pain Intensity: 7 This is a 59-year-old male presenting to the emergency department for evaluation of alcohol use, alcohol abuse, and alcohol withdrawal. He is accompanied by his who assists in the history. The patient is an alcoholic drinking 12 beers minimum per day. He reports that he drank 3 beers today, and then began having shaking sensations. He has been fighting with his recently, and she states that she will leave him if he does not get help. The patient reports that he has not had a drink in 7 or 8 hours. He is without nausea or vomiting. He is complaining of shaking, but does not have significant tremors. No reported fever or chills. He does have a cardiac history, and is not taking any of his cardiac medications. He rates his current discomfort a 7/10. Home Medications Home Medications Medication Instructions Recorded Confirmed Type atorvastatin 40 mg tablet 40 mg PO DAILY 04/23/19 11/20/19 History folic acid 400 mcg tablet 0.4 mg PO DAILY tab 04/23/19 11/20/19 History lisinopril 40 mg tablet 40 mg PO DAILY #1 tab 04/23/19 11/20/19 History carvedilol 25 mg tablet 25 mg PO BID #60 tab 05/17/19 11/20/19 Rx clopidogrel 75 mg tablet 75 mg PO DAILY #30 tab 08/21/19 11/20/19 Rx [place]-3 1 cap PO DAILY 10/22/19 11/20/19 History ascorbic acid (vitamin C) [Vitamin 1,000 mg PO DAILY 10/22/19 11/20/19 History C] aspirin [Aspir-Low] 81 mg PO DAILY 10/22/19 11/20/19 History coenzyme Q10 [Co Q-10] 200 mg PO DAILY 10/22/19 11/20/19 History glucosamine-chondroitin [Osteo 1 tab PO BID 10/22/19 11/20/19 History Bi-Flex] milk thistle 1,000 mg PO BID 10/22/19 11/20/19 History nitroglycerin [Nitrostat] 0.4 mg SUBLINGUAL UD PRN 10/22/19 11/20/19 History vitamin B complex 1 tab PO DAILY 10/22/19 11/20/19 History acetaminophen 300 mg-codeine 30 mg 1 tab PO TID PRN #90 tab 11/01/19 11/20/19 Rx tablet meloxicam 15 mg tablet 15 mg PO DAILY #30 tab 11/01/19 11/20/19 Rx Allergies Allergy/AdvReac Type Severity Reaction Status Date / Time No Known Allergies Allergy Unverified 11/20/19 01:13 Past Med/Surg History Medical History Alcohol dependence (Chronic) Alcohol withdrawal C. difficile diarrhea (Resolved) CAD (coronary artery disease) (Chronic) "03/29/2017 - anterior STEMI, s/p JEFFREY to LAD" Hepatitis C (Chronic) History of Clostridioides difficile colitis History of GI bleed (Chronic) "secondary to esophageal ulceration on EGD 11/29/2013" HTN (hypertension) (Chronic) Hyperlipidemia LDL goal <70 Ischemic cardiomyopathy (Chronic) "EF 30-35%" Obesity (Chronic) Renal artery stenosis (Chronic) "questionable" Surgical History H/O esophagogastroduodenoscopy (Chronic) "11/29/2013- Large lower esophageal ulceration. No bleeding. Portal hypertensive gastropathy. Erythematous duodenopathy. Normal 2nd part of the duodenum." Social History Preferred Language: Serbian Communication Ability: Effective Cardiovascular Sonographer Required: No Beliefs That Will Affect Care: None marital status: Current Living Situation: Spouse Feels Safe at Home: Yes Smoking Status: Current every day smoker Tobacco Type: cigarettes ; Cigarettes Per Day: 20 ; Second Hand Exposure: Yes ; Tobacco Cessation Education Requested by Patient: No Hx Alcohol Use: Yes Alcohol type: beer Hx Substance Use: Yes substance use type: crack/cocaine Substance Use Type Other:: in the 's Review of Systems A total of 10 systems reviewed and were otherwise negative Physical Exam Vital Signs Vital Signs - 24 hr 11/20/19 00:20 11/20/19 00:30 11/20/19 00:40 Temperature 37.2 C Temperature Source Oral Pulse Rate 150 H 139 H 132 H Pulse Rate from SpO2 Sensor 139 H 133 H Respiratory Rate 20 17 27 H Respiratory Effort / Characteristics Non-Labored Spontaneous Respiratory Depth Normal Respiratory Pattern Regular Blood Pressure 144/101 H Blood Pressure Mean 115 Blood Pressure Position Sitting Pulse Oximetry 96 95 94 Oxygen Delivery Method Room Air Sepsis Recent Fever Within 48 Hours No Sepsis New/Unexplained Change in Mental Status No Sepsis Action Taken by Nursing No Action Required 11/20/19 00:50 11/20/19 01:00 11/20/19 01:01 Temperature Temperature Source Pulse Rate 138 H 135 H 136 H Pulse Rate from SpO2 Sensor 137 H 134 H 136 H Respiratory Rate 16 23 17 Respiratory Effort / Characteristics Respiratory Depth Respiratory Pattern Blood Pressure 143/103 H Blood Pressure Mean 119 Blood Pressure Position Pulse Oximetry 96 95 95 Oxygen Delivery Method Sepsis Recent Fever Within 48 Hours Sepsis New/Unexplained Change in Mental Status Sepsis Action Taken by Nursing 11/20/19 01:10 11/20/19 01:11 11/20/19 01:20 Temperature Temperature Source Pulse Rate 133 H 135 H Pulse Rate from SpO2 Sensor 133 H 135 H Respiratory Rate 14 22 Respiratory Effort / Characteristics Respiratory Depth Respiratory Pattern Blood Pressure Blood Pressure Mean Blood Pressure Position Pulse Oximetry 94 97 93 Oxygen Delivery Method Room Air Sepsis Recent Fever Within 48 Hours Sepsis New/Unexplained Change in Mental Status Sepsis Action Taken by Nursing 11/20/19 01:30 11/20/19 01:31 11/20/19 01:40 Temperature Temperature Source Pulse Rate 129 H 129 H 133 H Pulse Rate from SpO2 Sensor 129 H 130 H 133 H Respiratory Rate 20 26 H 22 Respiratory Effort / Characteristics Respiratory Depth Respiratory Pattern Blood Pressure 130/96 Blood Pressure Mean 108 Blood Pressure Position Pulse Oximetry 96 92 91 Oxygen Delivery Method Sepsis Recent Fever Within 48 Hours Sepsis New/Unexplained Change in Mental Status Sepsis Action Taken by Nursing 11/20/19 01:50 11/20/19 02:00 11/20/19 02:02 Temperature Temperature Source Pulse Rate 128 H 126 H 128 H Pulse Rate from SpO2 Sensor 128 H 127 H 128 H Respiratory Rate 16 25 H 20 Respiratory Effort / Characteristics Respiratory Depth Respiratory Pattern Blood Pressure 112/85 112/85 Blood Pressure Mean 94 91 Blood Pressure Position Pulse Oximetry 94 97 92 Oxygen Delivery Method Sepsis Recent Fever Within 48 Hours Sepsis New/Unexplained Change in Mental Status Sepsis Action Taken by Nursing 11/20/19 02:10 11/20/19 02:20 11/20/19 02:30 Temperature Temperature Source Pulse Rate 124 H 120 H 126 H Pulse Rate from SpO2 Sensor 125 H 121 H 126 H Respiratory Rate 25 H 23 20 Respiratory Effort / Characteristics Respiratory Depth Respiratory Pattern Blood Pressure Blood Pressure Mean Blood Pressure Position Pulse Oximetry 94 91 92 Oxygen Delivery Method Sepsis Recent Fever Within 48 Hours Sepsis New/Unexplained Change in Mental Status Sepsis Action Taken by Nursing 11/20/19 02:40 11/20/19 02:50 11/20/19 03:00 Temperature Temperature Source Pulse Rate Pulse Rate from SpO2 Sensor 122 H 121 H 126 H Respiratory Rate 25 H 23 15 Respiratory Effort / Characteristics Respiratory Depth Respiratory Pattern Blood Pressure Blood Pressure Mean Blood Pressure Position Pulse Oximetry 93 93 95 Oxygen Delivery Method Sepsis Recent Fever Within 48 Hours Sepsis New/Unexplained Change in Mental Status Sepsis Action Taken by Nursing 11/20/19 03:01 11/20/19 03:10 Temperature Temperature Source Pulse Rate Pulse Rate from SpO2 Sensor 124 H 123 H Respiratory Rate 42 H Respiratory Effort / Characteristics Respiratory Depth Respiratory Pattern Blood Pressure Blood Pressure Mean 68 Blood Pressure Position Pulse Oximetry 97 95 Oxygen Delivery Method Sepsis Recent Fever Within 48 Hours Sepsis New/Unexplained Change in Mental Status Sepsis Action Taken by Nursing VITALS: Vitals are noted on the nurse's note and reviewed by myself. Vital signs with noted tachycardia GENERAL: Intoxicated appearing male who has difficulty providing a full history. He is mildly tremulous throughout the exam. HEAD: Normocephalic atraumatic. NOSE: Patent, turbinates without inflammation or discharge. MOUTH: Mucous membranes moist. Tonsils are not enlarged. Pharynx without erythema, blood, or exudate. Uvula midline. Airway patent. NECK: Supple without nuchal rigidity. No lymphadenopathy. No thyromegaly. Cervical spine is nontender. HEART: Regular rate and rhythm without murmurs gallops or rubs. LUNGS: Clear to auscultation bilaterally without wheezes, rales or rhonchi. No retractions or accessory muscle use. ABDOMEN: Positive normal bowel sounds x 4. Soft, nontender, without masses or organomegaly. No guarding or rebound tenderness. MUSCULOSKELETAL: No muscle atrophy, erythema, or edema noted. Full range of motion in all extremities. NEURO: Patient was alert to person and place but not time SKIN: The skin was without rashes, erythema, edema, or bruising. Capillary refill less than 2 seconds. Course Administered Medications Potassium Chloride/Sodium Chloride (Normal Saline W/20 Meq Kcl) 20 meq in 1,000 mls @ 150 mls/hr IV .Q6H40M WESLY Stop: 12/20/19 04:20 Last Admin: 11/20/19 04:46 Dose: 150 mls/hr Documented by: [id number] Lorazepam (Ativan) 1 mg in 2 mls @ 2 mls/min IV Q1H PRN; Protocol PRN Reason: Symptoms of alcohol withdrawal Stop: 12/20/19 04:44 Last Admin: 11/20/19 04:46 Dose: 2 mls/min Documented by: [id number] Discontinued Medications Multivitamins 10 ml/ Thiamine HCl 100 mg/ Folic Acid 1 mg/Sodium Chloride 1,011.2 mls @ 1,011.2 mls/hr IV .Q1H ONE Stop: 11/20/19 01:31 Last Infusion: 11/20/19 02:27 Dose: 0 mls/hr Documented by: [id number] Admin: 11/20/19 01:19 Dose: 1,011.2 mls/hr Documented by: [id number] Lorazepam (Ativan) 1 mg in 2 mls @ 2 mls/min IV NOW STA Stop: 11/20/19 00:33 Last Admin: 11/20/19 01:17 Dose: 2 mls/min Documented by: [id number] Sodium Chloride (Nss 1000ml) 1,000 mls @ 999 mls/hr IV .Q1H1M WESLY Stop: 11/20/19 03:00 Last Infusion: 11/20/19 04:36 Dose: 0 mls/hr Documented by: [id number] Admin: 11/20/19 02:28 Dose: 999 mls/hr Documented by: [id number] Lorazepam (Ativan) 1 mg in 2 mls @ 2 mls/min IV NOW STA Stop: 11/20/19 01:54 Last Admin: 11/20/19 02:08 Dose: 2 mls/min Documented by: [id number] Nicotine (Nicoderm Cq) 21 mg TD NOW STA Stop: 11/20/19 01:47 Last Admin: 11/20/19 01:49 Dose: 21 mg Documented by: [id number] Critical Care Time I have personally spent greater than 30 minutes of critical care time in the direct management of this patient. This includes bedside care, interpretation of diagnostic studies, and testing, discussion with consultants, patient, and family members, and other required patient management activities. This 30 minutes is in excess of all separately billable procedures. Medical Decision Making Differential Diagnosis Differential includes alcohol withdrawal, DTs, acute coronary syndrome, myocardial infarction, CVA, TIA, anemia, infection, pneumonia, UTI, pyelonephritis, poor nutrition, dehydration, electrolyte disturbance,hypoglycemia. Laboratory Data Result diagrams: 11/20/19 04:57 11/20/19 04:57 Lab Results 11/20/19 11/20/19 11/20/19 Range/Units 01:00 01:00 01:00 WBC 6.45 (4.8-10.8) K/uL RBC 4.45 L (4.7-6.1) M/uL Hgb 15.5 (14.0-18.0) g/dL Hct 43.6 (42-52) % MCV 98.0 (80-100) fL MCH 34.8 H (25-34) pg MCHC 35.6 (32-36) g/dL RDW Std Deviation 49.0 H (36.4-46.3) fL RDW Coeff of [place] 13.6 (11.5-14.5) % Plt Count 152 (130-400) K/uL MPV 9.3 (7.4-10.4) fL Immature Gran % (Auto) 0.2 % Neut % (Auto) 56.4 % Lymph % (Auto) 35.7 % [place] % (Auto) 7.0 % Eos % (Auto) 0.5 % Baso % (Auto) 0.2 % Immature Gran # (Auto) 0.01 (0.00-0.02) K/uL Neut # (Auto) 3.65 (1.4-6.5) K/uL Lymph # (Auto) 2.30 (1.2-3.4) K/uL [place] # (Auto) 0.45 (0.11-0.59) K/uL Eos # (Auto) 0.03 (0-0.5) K/uL Baso # (Auto) 0.01 (0-0.2) K/uL PT (9.0-12.0) Seconds INR (0.9-1.1) APTT (21.0-31.0) Seconds PTT Ratio Sodium 141 (136-145) mmol/L Potassium 3.8 (3.5-5.1) mmol/L Chloride 107 (98-107) mmol/L Carbon Dioxide 21 (21-32) mmol/L Anion Gap 13.0 H (3-11) BUN 10 (7-18) mg/dl Creatinine 0.72 (0.6-1.4) mg/dl Est Cr Clr Drug Dosing Not Reportable Est GFR ( Amer) 120.0 Est GFR (Non-Af Amer) 103.6 BUN/Creatinine Ratio 13.7 (10-20) Glucose 99 (70-99) mg/dl Lactate 4.2 H* (0.4-2.0) mmol/L Calcium 8.3 L (8.5-10.1) mg/dl Magnesium 2.0 (1.8-2.4) mg/dl Total Bilirubin 0.4 (0.2-1) mg/dl AST 43 H (15-37) U/L ALT 50 (12-78) U/L Alkaline Phosphatase 68 (45-117) U/L Troponin I 0.041 (0-0.045) ng/ml Total Protein 7.8 (6.4-8.2) gm/dl Albumin 3.7 (3.4-5.0) gm/dl Globulin 4.1 H (2.5-4.0) gm/dl Albumin/Globulin Ratio 0.9 (0.9-2) Lipase 165 (73-393) U/L TSH 2.840 (0.300-4.500) uIu/ml Ethyl Alcohol mg/dL (0-3) mg/dl 11/20/19 11/20/19 Range/Units 01:00 01:00 WBC (4.8-10.8) K/uL RBC (4.7-6.1) M/uL Hgb (14.0-18.0) g/dL Hct (42-52) % MCV (80-100) fL MCH (25-34) pg MCHC (32-36) g/dL RDW Std Deviation (36.4-46.3) fL RDW Coeff of [place] (11.5-14.5) % Plt Count (130-400) K/uL MPV (7.4-10.4) fL Immature Gran % (Auto) % Neut % (Auto) % Lymph % (Auto) % [place] % (Auto) % Eos % (Auto) % Baso % (Auto) % Immature Gran # (Auto) (0.00-0.02) K/uL Neut # (Auto) (1.4-6.5) K/uL Lymph # (Auto) (1.2-3.4) K/uL [place] # (Auto) (0.11-0.59) K/uL Eos # (Auto) (0-0.5) K/uL Baso # (Auto) (0-0.2) K/uL PT 10.0 (9.0-12.0) Seconds INR 1.0 (0.9-1.1) APTT 26.3 (21.0-31.0) Seconds PTT Ratio 1.0 Sodium (136-145) mmol/L Potassium (3.5-5.1) mmol/L Chloride (98-107) mmol/L Carbon Dioxide (21-32) mmol/L Anion Gap (3-11) BUN (7-18) mg/dl Creatinine (0.6-1.4) mg/dl Est Cr Clr Drug Dosing Est GFR ( Amer) Est GFR (Non-Af Amer) BUN/Creatinine Ratio (10-20) Glucose (70-99) mg/dl Lactate (0.4-2.0) mmol/L Calcium (8.5-10.1) mg/dl Magnesium (1.8-2.4) mg/dl Total Bilirubin (0.2-1) mg/dl AST (15-37) U/L ALT (12-78) U/L Alkaline Phosphatase (45-117) U/L Troponin I (0-0.045) ng/ml Total Protein (6.4-8.2) gm/dl Albumin (3.4-5.0) gm/dl Globulin (2.5-4.0) gm/dl Albumin/Globulin Ratio (0.9-2) Lipase (73-393) U/L TSH (0.300-4.500) uIu/ml Ethyl Alcohol mg/dL 319.1 H (0-3) mg/dl ECG Data Attestation: I personally reviewed and interpreted this ECG as follows: Indication: + altered mental status Rate (beats per minute): 139 Rhythm: + sinus tachycardia ECG Intervals/blocks: + Left anterior fascicular block MDM Narrative Physical exam and history were performed. Nursing notes, EMR, and Medication List were personally reviewed. Patient appears to have a history of alcohol abuse, and seems to be going through alcohol withdrawal. The patient is markedly tachycardic with a rate in the 150s on initial presentation. IV access was established and labs were obtained. EKG was performed. He was placed on the desk editor. The patient was given a banana bag and started with IV Ativan. The patient's blood work is as above and was reviewed. He does not have a sign ificantly elevated white blood cell count, gross anemia, or significant electrolyte imbalance. His lactic acid is elevated at over 4. Lipase and transaminases are not diagnostic. His troponin, while not technically elevated, is detectable at 0.041. TSH shows euthyroid state. Urine is without evidence of infection. His alcohol is 319. On reevaluation the patient continues with tachycardia and the feeling that he is going through withdrawal. He was given a nicotine patch. He was hydrated with normal saline and given another dose of IV Ativan. Overall the patient does not appear well for discharge home. I suspect that he is going through withdrawal even though his alcohol is over 300. He also has a detectable troponin which may be from his tachycardia. Overall the case was discussed with the on-call hospitalist team, who agreed to evaluate the patient here in the ER. Please see their dictation for further patient course, plan, and disposition. The chart was completed utilizing [employer] Speech Voice Recognition Software. Grammatical errors, random word insertions, pronoun errors, and incomplete sentences are an occasional consequence of this system due to software limita tions, ambient noise, and hardware issues. Any formal questions or concerns about the content, text, or information contained within the body of this dictation should be directly addressed to the provider for clarification. . Impression & Plan Alcohol withdrawal, Alcohol dependence, CAD (coronary artery disease) Discharge Plan Visit Data *Final* Discharge Date/Time: 11/20/19 03:38 Chief Complaint: Alcohol Withdrawal Stated Complaint: ALCOHOL RELAPSE Other Complaint: Alcohol Intoxication ED Provider: Aditya Mtz ED Midlevel Provider: Mack Pollock Discharge Problem: Alcohol withdrawal, Alcohol dependence, CAD (coronary artery disease) Patient Disposition: Admitted As Inpatient Discharge Instructions Interventions: ED Discharge Assessment Last Done: 11/20/19 03:38 Discharge Problem: Alcohol withdrawal Qualifiers: Complication of substance-induced condition: with delirium Qualified Code(s): F10.231 - Alcohol dependence with withdrawal delirium Alcohol dependence Qualifiers: Substance use status: with intoxication Complication of substance-induced condition: with unspecified complication Qualified Code(s): F10.229 - Alcohol dependence with intoxication, unspecified CAD (coronary artery disease) Qualifiers: Coronary Disease-Associated Artery/Lesion type: unspecified vessel or lesion type [place] vs. transplanted heart: unspecified whether [place] or transplanted heart Associated angina: without angina Qualified Code(s): I25.10 - Athero sclerotic heart disease of [place] coronary artery without angina pectoris
[2019-11-20] MEDS: carvediloL 25 MG TAB PO SCH ×2 (07:58→20:05)
[2019-11-20] MEDS: CLOPIDOGREL BISULFATE 75 MG TAB PO SCH (07:58)
[2019-11-20] MEDS: lisinopriL 40 MG TAB PO SCH (07:58)
[2019-11-20] MEDS: OMEGA-3 (PURIFIED FISH OIL) 1 GM CAP PO SCH (07:59)
[2019-11-20] MEDS: ATORVASTATIN 40 MG TAB PO SCH (07:59)
[2019-11-20] MEDS: FOLIC ACID 400 MCG TAB PO SCH (07:59)
[2019-11-20] MEDS: THIAMINE HCL 100 MG TAB PO SCH (07:59)
[2019-11-20] MEDS: VITAMIN B COMPLEX TAB PO SCH (07:59)
[2019-11-20] MEDS: MELOXICAM 7.5 MG TAB PO SCH (08:00)
[2019-11-20] MEDS: ASCORBIC ACID 500 MG TAB PO SCH (08:00)
[2019-11-20] MEDS: ASPIRIN 81 MG ECTAB PO SCH (08:00)
[2019-11-20] MEDS: NICOTINE 21 MG/24 HR TDSY TD SCH (08:00)
[2019-11-20] MEDS ORDERED: NON-FORMULARY MEDICATION (Coenzyme Q10 [Co Q-10] 200 MG) PO SCH (09:00)
[2019-11-20] MEDS ORDERED: MILK THISTLE 1000 MG PO SCH (09:00)
[2019-11-20] MEDS ORDERED: NON-FORMULARY MEDICATION (Glucosamine-Chondroitin [Osteo Bi-Flex] 1 TAB) PO SCH (09:00)
[2019-11-20] MEDS ORDERED: LORazepam 2 MG/4 ML VIAL IV PRN (09:53)
[2019-11-20] MEDS ORDERED: LORazepam 1 MG/2 ML VIAL IV PRN (09:53)
--- NOTE | 2019-11-20 10:46 | Electrocardiogram Report ---
Test Reason : Blood Pressure : / mmHG Vent. Rate : 139 BPM Atrial Rate : 139 BPM P-R Int : 132 ms QRS Dur : 092 ms QT Int : 296 ms P-R-T Axes : -04 -68 046 degrees QTc Int : 450 ms Sinus tachycardia Left anterior fascicular block Anterolateral infarct , age undetermined Abnormal ECG When compared with ECG of 24-OCT-2019 06:43, Significant changes have occurred Confirmed by Jayant Gross ([id number]) on 11/20/2019 10:46:04 AM Referred By: REFERRED SELF Confirmed By:Jayant Gross
[2019-11-20] MEDS ORDERED: LORazepam 3 MG/6 ML VIAL IV STA (13:10)
[2019-11-20] MEDS ORDERED: GABAPENTIN 1200MG ALCOHOL WITHDRAWAL LOAD PO STA (13:18)
[2019-11-20] MEDS ORDERED: GABAPENTIN 600 MG TAB PO STA (13:20)
--- NOTE | 2019-11-20 14:24 | History & Physical Bridge Note ---
Date of Service November 20, 2019 History & Physical Bridge Note I have examined the patient, reviewed the History & Physical and in the interval since the performance of the History & Physical I have noted the following changes of clinical significance: patient admitted after midnight for alcohol withdrawal, wants to quit he was drinking heavily the day before he stayed sober for about 2 weeks after the last admission he says that his continues to drink wine coolers at night, makes it difficult on him he is having tremors, score is 10 on AWSS and will get Ativan discussed with pharmacy, will start on Gabapentin taper will likely be here a few days, not interested in going to inpatient rehab, needs to keep working
[2019-11-20] MEDS: GABAPENTIN 600 MG TAB PO SCH (20:05)
[2019-11-21] MEDS: LORAZEPAM 1MG IV ACTIVE PROTOCOL IV PRN ×2 (00:16→06:08)
[2019-11-21] MEDS: GABAPENTIN 600 MG TAB PO SCH ×3 (00:30→16:53)
[2019-11-21] MEDS: NSS + 20MEQ KCL 20 MEQ/1,000 ML BAG IV SCH ×2 (00:30→05:59)
[2019-11-21] MEDS ORDERED: ONDANSETRON INJ 2 MG/ML 2 ML VIAL IV PRN (06:08)
[2019-11-21] MEDS ORDERED: ONDANSETRON INJ 2 MG/ML 2 ML VIAL ONE (06:10)
[2019-11-21 08:04] LABS: Eosinophils % (auto) 1.9 %; Hemoglobin 13.1 g/dL (14.0-18.0); Immature Granulocytes # (auto) 0.02 K/uL (0.00-0.02); Immature Granulocytes % (auto) 0.4 %; Lymphocytes # (auto) 1.47 K/uL (1.2-3.4); Lymphocytes % (auto) 28.7 %; Mean Corpuscular Hgb Conc 33.6 g/dL (32-36); Mean Corpuscular Volume 101.3 fL (80-100); Mean Platelet Volume 9.3 fL (7.4-10.4); Monocytes # (auto) 0.42 K/uL (0.11-0.59); Monocytes % (auto) 8.2 %; Neutrophils # (auto) 3.12 K/uL (1.4-6.5); Neutrophils % (auto) 60.8 %; Platelet Count 101 K/uL (130-400); RDW Coefficient of Variation 13.8 % (11.5-14.5); RDW Standard Deviation 51.6 fL (36.4-46.3); Red Blood Count 3.85 M/uL (4.7-6.1); White Blood Count 5.13 K/uL (4.8-10.8)
[2019-11-21] MEDS: MELOXICAM 7.5 MG TAB PO SCH (08:38)
[2019-11-21] MEDS: lisinopriL 40 MG TAB PO SCH (08:38)
[2019-11-21] MEDS: ATORVASTATIN 40 MG TAB PO SCH (08:38)
[2019-11-21] MEDS: ASCORBIC ACID 500 MG TAB PO SCH (08:38)
[2019-11-21] MEDS: THIAMINE HCL 100 MG TAB PO SCH (08:38)
[2019-11-21] MEDS: OMEGA-3 (PURIFIED FISH OIL) 1 GM CAP PO SCH (08:38)
[2019-11-21] MEDS: VITAMIN B COMPLEX TAB PO SCH (08:38)
[2019-11-21] MEDS: carvediloL 25 MG TAB PO SCH ×2 (08:39→21:33)
[2019-11-21] MEDS: FOLIC ACID 400 MCG TAB PO SCH (08:39)
[2019-11-21] MEDS: NICOTINE 21 MG/24 HR TDSY TD SCH (08:39)
[2019-11-21] MEDS: ASPIRIN 81 MG ECTAB PO SCH (08:39)
[2019-11-21] MEDS: CLOPIDOGREL BISULFATE 75 MG TAB PO SCH (08:39)
[2019-11-21 08:40] LABS: Albumin Globulin Ratio 0.9 (0.9-2); BUN Creatinine Ratio 18.5 (10-20); Bilirubin,Total 0.8 mg/dl (0.2-1); Calcium 8.5 mg/dl (8.5-10.1); Creatinine Clr Calc Pharmacy 140.7 ml/min; Est GFR (African American) 126.8; Est GFR (Non-African American) 109.4; Globulin 3.3 gm/dl (2.5-4.0); Magnesium 1.8 mg/dl (1.8-2.4); Phosphorus 3.6 mg/dl (2.5-4.9); Potassium 4.3 mmol/L (3.5-5.1); Total Protein 6.3 gm/dl (6.4-8.2)
--- NOTE | 2019-11-21 10:51 | Hospitalist Progress Note ---
Date of Service November 21, 2019 Assessment & Plan (1) Alcohol withdrawal: Placed on AWSS scale with Gabapentin taper use Ativan PRN much better today, likely ready for d/c tomorrow BP improved today discussed that he will need a plan for discharge, he wants to use AA he says he cannot go to rehab because he will lose his job (2) CAD (coronary artery disease): CAD/ischemic cardiomyopathy/hypertension/tachycardia- Received 2 L of normal saline in the ED. no further fluids needed, eating well troponin negative chest pain is related to withdrawal, has symptoms with elevated BP, gets better with Ativan Continue aspirin, carvedilol, clopidogrel and nitroglycerin sublingual's. (3) Ischemic cardiomyopathy: See above (4) Hypertension: See above (5) Tachycardia: resolved, related to withdrawal (6) Hepatitis C: Normal LFTs upon admission, can follow serially. This condition followed in the outpatient setting. (7) Hyperlipidemia LDL goal <70: Continue atorvastatin 40 mg daily. (8) Diarrhea: C diff gene positive but toxin negative will use imodium Admission and Anticipated Discharge Date Admission Date: November 20, 2019 Anticipated date of discharge: 11/22/19 Subjective patient feeling better today, BP better controlled less tremors, less diaphoresis, less anxiety reviewed labs, stable discussed plan for discharge tomorrow, he agrees he wants his to stop drinking as well, will try to have a discussion tomorrow had some chest pain last night around 7pm, EKG without ischemic changes, went away with Ativan, related to withdrawal patient c/o diarrhea, sent stool sample, C diff gene positive but toxin negative, he is a carrier will try some imodium Review of Systems Review of Systems: All systems reviewed & are unremarkable except as noted in HPI & below Constitutional: + fatigue and + weakness Respiratory: no cough and no dyspnea Cardiovascular: no chest pain and no edema Gastrointestinal: + diarrhea/loose stools; no abdominal pain, no nausea, no vomiting and no constipation Neurologic: no tremor(s) Psychiatric: + abnormal sleep pattern; no depression and no anxiety Physical Exam Constitutional: WD/WN, vitals as above Eyes: PERRL, conjunctivae normal, anicteric sclerae ENMT: external ear and nose normal, oropharynx normal Neck: trachea midline, no thyromegaly Respiratory: normal respiratory effort, lungs clear to auscultation Cardiovascular: RRR, no murmur, no edema Gastrointestinal (Abdomen): normal bowel sounds, soft, nontender, no hepatosplenomegaly Musculoskeletal: no cyanosis or clubbing, extremities motor strength 5/5 Skin: no rashes, warm and dry Neurologic: patellar DTR's 2+ bilat, sensation intact and PERRL, EOMI, accommodation nl, no face palsy, no dysarthria Psychiatric: A+Ox3, euthymic affect Lymphatic: no cervical or axillary lymphadenopathy Results & Data ([facility]) Vital Signs (Past 12 Hours) Vital Signs Temp Pulse Pulse Resp BP Pulse Ox 11/21/19 08:00 36.3 C L 87 16 143/96 H 97 11/21/19 06:02 36.8 C 76 22 146/89 H 97 11/21/19 04:00 36.6 C 82 16 127/93 91 11/21/19 02:13 36.5 C 81 18 120/81 94 11/21/19 00:01 36.8 C 76 21 139/96 97 11/20/19 23:34 90 Laboratory Results Laboratory Results - last 24 hr 11/21/19 11/21/19 11/21/19 07:51 07:51 11:52 WBC 5.13 RBC 3.85 L Hgb 13.1 L Hct 39.0 L MCV 101.3 H MCH 34.0 MCHC 33.6 RDW Std Deviation 51.6 H RDW Coeff of [place] 13.8 Plt Count 101 L MPV 9.3 Immature Gran % (Auto) 0.4 Neut % (Auto) 60.8 Lymph % (Auto) 28.7 [place] % (Auto) 8.2 Eos % (Auto) 1.9 Baso % (Auto) 0.0 Immature Gran # (Auto) 0.02 Neut # (Auto) 3.12 Lymph # (Auto) 1.47 [place] # (Auto) 0.42 Eos # (Auto) 0.10 Baso # (Auto) 0.00 Sodium 142 Potassium 4.3 D Chloride 112 H Carbon Dioxide 24 Anion Gap 6.0 BUN 12 Creatinine 0.63 Est Cr Clr Drug Dosing 140.7 Est GFR ( Amer) 126.8 Est GFR (Non-Af Amer) 109.4 BUN/Creatinine Ratio 18.5 Glucose 87 Calcium 8.5 Phosphorus 3.6 Magnesium 1.8 Total Bilirubin 0.8 D AST 32 ALT 40 Alkaline Phosphatase 57 Total Protein 6.3 L Albumin 3.0 L Globulin 3.3 Albumin/Globulin Ratio 0.9 Stl C. diff Tox B Gene Positive Cdiff Gene H Stl C.difficile Tox A&B Negative Cdiff Toxin Medications Administered Current Inpatient Medications Ascorbic Acid (Vitamin C) 1,000 mg PO DAILY WESLY Stop: 12/20/19 08:59 Last Admin: 11/21/19 08:38 Dose: 1,000 mg Documented by: Aspirin (Ecotrin Ectab) 81 mg PO DAILY WESLY Stop: 12/20/19 08:59 Last Admin: 11/21/19 08:39 Dose: 81 mg Documented by: Atorvastatin Calcium (Lipitor) 40 mg PO DAILY WESLY Stop: 12/20/19 08:59 Last Admin: 11/21/19 08:38 Dose: 40 mg Documented by: Carvedilol (Coreg) 25 mg PO BID WESLY Stop: 12/20/19 08:59 Last Admin: 11/21/19 08:39 Dose: 25 mg Documented by: Clopidogrel Bisulfate (Plavix) 75 mg PO DAILY WESLY Stop: 12/20/19 08:59 Last Admin: 11/21/19 08:39 Dose: 75 mg Documented by: Fish Oil ([place]-3 (Purified Fish Oil)) 1 gm PO DAILY WESLY Stop: 12/20/19 08:59 Last Admin: 11/21/19 08:38 Dose: 1 gm Documented by: Folic Acid (Folvite) 400 mcg PO DAILY WESLY Stop: 12/20/19 08:59 Last Admin: 11/21/19 08:39 Dose: 400 mcg Documented by: Gabapentin (Neurontin) 600 mg PO Q8H WESLY Stop: 11/22/19 01:20 Last Admin: 11/21/19 08:38 Dose: 600 mg Documented by: Gabapentin (Neurontin) 600 mg PO Q12H WESLY Stop: 11/23/19 01:20 Gabapentin (Neurontin) 600 mg PO Q24H WESLY Stop: 11/24/19 01:20 Lisinopril (Zestril) 40 mg PO DAILY WESLY Stop: 12/20/19 08:59 Last Admin: 11/21/19 08:38 Dose: 40 mg Documented by: Meloxicam (Mobic) 15 mg PO DAILY WESLY Stop: 04/02/20 08:59 Last Admin: 11/21/19 08:38 Dose: 15 mg Documented by: Miscellaneous (Remove Nicoderm Patch) 1 ea N/A DAILY@0859 [facility] Stop: 12/20/19 08:58 Last Admin: 11/21/19 08:39 Dose: 1 ea Documented by: Nicotine (Nicoderm Cq) 21 mg TD QAM [facility] Stop: 12/20/19 08:59 Last Admin: 11/21/19 08:39 Dose: 21 mg Documented by: Nitroglycerin (Nitrostat) 0.4 mg SL UD PRN PRN Reason: Chest Pain Stop: 12/20/19 04:20 Ondansetron HCl (Zofran) 4 mg IV Q6H PRN PRN Reason: Nausea Stop: 12/21/19 06:07 Oxycodone HCl (Roxicodone Immediate Rel) 5 mg PO Q8 PRN PRN Reason: Pain Stop: 12/05/19 10:41 Last Admin: 11/21/19 13:04 Dose: 5 mg Documented by: Thiamine HCl (Vitamin B-1) 100 mg PO QAM [facility] Stop: 12/20/19 08:59 Last Admin: 11/21/19 08:38 Dose: 100 mg Documented by: Vitamin B Complex (Vitamin B Complex) 1 tab PO DAILY [facility] Stop: 12/20/19 08:59 Last Admin: 11/21/19 08:38 Dose: 1 tab Documented by: PG Care Time/CCT Total # of Minutes Spent Total Time Spent with Patient: Total time spent is greater than 50% in coordination of care (as documented) at patient's floor/unit and/or counseling patient: Coding Level of Care Code 89870 Subseq Hosp Care Lvl 2 Diagnoses Alcohol withdrawal F10.231 Complication of substance-induced condition: with delirium CAD (coronary artery disease) I25.10 Associated angina: without angina Coronary Disease-Associated Artery/Lesion type: unspecified vessel or lesion type [place] vs. transplanted heart: unspecified whether [place] or transplanted heart Ischemic cardiomyopathy I25.5 Hypertension I10 Hypertension type: unspecified Tachycardia R00.0 Hepatitis C B19.20 Hyperlipidemia LDL goal <70 E78.5 Diarrhea R19.7 (1) CAD (coronary artery disease) Associated angina: without angina Coronary Disease-Associated Artery/Lesion type: unspecified vessel or lesion type [place] vs. transplanted heart: unspecified whether [place] or transplanted heart Qualified Code(s): I25.10 - Atherosclerotic heart disease of [place] coronary artery without angina pectoris (2) Alcohol withdrawal Complication of substance-induced condition: with delirium Qualified Code(s): F10.231 - Alcohol dependence with withdrawal delirium (3) Hypertension Hypertension type: unspecified Qualified Code(s): I10 - Essential (primary) hypertension
[2019-11-21] MEDS: OXYCODONE HCL IR 5 MG TAB (IMMEDIATE RELEASE) PO PRN ×2 (13:04→21:32)
[2019-11-21 13:48] LABS: Cdiff Antigen Positive; Cdiff Toxin A+B Negative Cdiff Toxin (Negative)
[2019-11-21] MEDS ORDERED: LOPERAMIDE HCL 2 MG CAP PO PRN (15:50)
--- NOTE | 2019-11-21 15:51 | Electrocardiogram Report ---
Test Reason : Blood Pressure : / mmHG Vent. Rate : 100 BPM Atrial Rate : 100 BPM P-R Int : 152 ms QRS Dur : 094 ms QT Int : 364 ms P-R-T Axes : 026 -60 019 degrees QTc Int : 469 ms Normal sinus rhythm Left anterior fascicular block Minimal voltage criteria for LVH, may be normal variant Anteroseptal infarct (cited on or before 20-NOV-2019) Abnormal ECG When compared with ECG of 20-NOV-2019 00:33, No significant change Confirmed by Jayant Gross ([id number]) on 11/21/2019 3:51:33 PM Referred By: REFERRED SELF Confirmed By:Jayant Gross
[2019-11-22] MEDS: GABAPENTIN 600 MG TAB PO SCH (00:32)
[2019-11-22 05:55] LABS: Hematocrit (blood only) 38.8 % (42-52); Hemoglobin 13.3 g/dL (14.0-18.0); Mean Corpuscular Hemoglobin 34.5 pg (25-34); Mean Corpuscular Hgb Conc 34.3 g/dL (32-36); Mean Corpuscular Volume 100.5 fL (80-100); RDW Coefficient of Variation 13.5 % (11.5-14.5); RDW Standard Deviation 48.8 fL (36.4-46.3); Red Blood Count 3.86 M/uL (4.7-6.1); White Blood Count 5.71 K/uL (4.8-10.8)
[2019-11-22 06:17] LABS: Basophils # (auto) 0.01 K/uL (0-0.2); Basophils % (auto) 0.2 %; Eosinophils # (auto) 0.18 K/uL (0-0.5); Eosinophils % (auto) 3.2 %; Lymphocytes # (auto) 1.92 K/uL (1.2-3.4); Lymphocytes % (auto) 33.6 %; Mean Platelet Volume 9.8 fL (7.4-10.4); Monocytes # (auto) 0.43 K/uL (0.11-0.59); Monocytes % (auto) 7.5 %; Neutrophils # (auto) 3.17 K/uL (1.4-6.5); Neutrophils % (auto) 55.5 %; Platelet Count 98 K/uL (130-400); Platelet Estimate Decreased (Normal); RBC Morphology Unremarkable
[2019-11-22 06:31] LABS: Albumin Level 3.2 gm/dl (3.4-5.0); BUN Creatinine Ratio 12.5 (10-20); Calcium 8.5 mg/dl (8.5-10.1); Creatinine Clr Calc Pharmacy 123.2 ml/min; Est GFR (Non-African American) 103.6; Potassium 3.5 mmol/L (3.5-5.1)
[2019-11-22 06:36] LABS: Albumin Globulin Ratio 0.9 (0.9-2); Bilirubin,Total 0.9 mg/dl (0.2-1); Globulin 3.4 gm/dl (2.5-4.0); Total Protein 6.6 gm/dl (6.4-8.2)
[2019-11-22] MEDS: OXYCODONE HCL IR 5 MG TAB (IMMEDIATE RELEASE) PO PRN (07:34)
[2019-11-22] MEDS: OMEGA-3 (PURIFIED FISH OIL) 1 GM CAP PO SCH (07:35)
[2019-11-22] MEDS: MELOXICAM 7.5 MG TAB PO SCH (07:35)
[2019-11-22] MEDS: carvediloL 25 MG TAB PO SCH (07:35)
[2019-11-22] MEDS: ASPIRIN 81 MG ECTAB PO SCH (07:35)
[2019-11-22] MEDS: NICOTINE 21 MG/24 HR TDSY TD SCH (07:36)
[2019-11-22] MEDS: ATORVASTATIN 40 MG TAB PO SCH (07:37)
[2019-11-22] MEDS: lisinopriL 40 MG TAB PO SCH (07:37)
[2019-11-22] MEDS: CLOPIDOGREL BISULFATE 75 MG TAB PO SCH (07:37)
[2019-11-22] MEDS: VITAMIN B COMPLEX TAB PO SCH (07:37)
[2019-11-22] MEDS: ASCORBIC ACID 500 MG TAB PO SCH (07:38)
[2019-11-22] MEDS: THIAMINE HCL 100 MG TAB PO SCH (07:38)
[2019-11-22] MEDS: FOLIC ACID 400 MCG TAB PO SCH (07:38)
[2019-11-22 10:19] LABS: Codeine Urine 1060 ng/mL (<50); Hydrocodone Urine NEGATIVE ng/mL (<50); Hydromor Urine NEGATIVE ng/mL (<50); Morphine Urine 237 ng/mL (<50); Norhydrocodone Conf Ur NEGATIVE ng/mL (<50); Noroxycodone Urine NEGATIVE ng/mL (<50); Oxycodone Urine NEGATIVE ng/mL (<50); Oxymorph Urine NEGATIVE ng/mL (<50)
--- NOTE | 2019-11-22 10:34 | Discharge Summary ---
Date of Service November 22, 2019 Admission HPI Per Admitting Provider The patient is a 59-year-old male with a past medical history including alcoholism, alcohol withdrawal, hypertension, ischemic cardiomyopathy, C. difficile colitis, history of GI bleed, CAD, hepatitis C, renal artery stenosis and hypertension. He presents to the emergency department with concerns regarding alcohol withdrawal, and has been advised by his that he either needs to get help or she will leave him. He reports that he drinks an average of 12 beers daily. His alcohol level upon arrival in the ED was 319.1, which she was surprised that. Principal Diagnosis Alcohol withdrawal Discharge Exam Constitutional WD/WN, vitals as above Eyes PERRL, conjunctivae normal, anicteric sclerae ENMT external ear and nose normal, oropharynx normal Neck trachea midline, no thyromegaly Respiratory normal respiratory effort, lungs clear to auscultation Cardiovascular RRR, no murmur, no edema Gastrointestinal (Abdomen) normal bowel sounds, soft, nontender, no hepatosplenomegaly Musculoskeletal no cyanosis or clubbing, extremities motor strength 5/5 Skin no rashes, warm and dry Neurologic patellar DTR's 2+ bilat, sensation intact and PERRL, EOMI, accommodation nl, no face palsy, no dysarthria Psychiatric A+Ox3, euthymic affect Lymphatic no cervical or axillary lymphadenopathy Discharge Data Allergies Allergy/AdvReac Type Severity Reaction Status Date / Time No Known Allergies Allergy Unverified 11/20/19 01:13 Consultations 11/20/19 02:12 ED Decision to Admit Stat Hospital Course (1) Alcohol withdrawal: Placed on AWSS scale with Gabapentin taper used Ativan PRN much better for the past two days, feels ready for discharge, wants to go home BP improved today discussed that he will need a plan for discharge, he wants to use AA, says he is motivated to quit he says he cannot go to rehab because he will lose his job discharge on three more days of Gabapentin taper prescribed Ativan 1mg q12 to use for symptom relief, provided with a few days work instructed to not take more than prescribed, do not drive after taking Ativan (2) CAD (coronary artery disease): CAD/ischemic cardiomyopathy/hypertension/tachycardia- Received 2 L of normal saline in the ED. no further fluids needed, eating well troponin negative chest pain is related to withdrawal, has symptoms with elevated BP, gets better with Ativan Continue aspirin, carvedilol, clopidogrel and nitroglycerin sublingual's. (3) Ischemic cardiomyopathy: See above (4) Hypertension: See above (5) Tachycardia: resolved, related to withdrawal (6) Hepatitis C: Normal LFTs upon admission, can follow serially. This condition followed in the outpatient setting. (7) Hyperlipidemia LDL goal <70: Continue atorvastatin 40 mg daily. (8) Diarrhea: C diff gene positive but toxin negative stool cultures negative will use imodium Total Time Total Time Spent Total Time Spent (In Minutes): 32 minutes Total Time Includes: Examination of the Patient, Discharge Planning and Medication Reconciliation Discharge Plan Discharge Items Patient Disposition: Home - Self-Care Reason For Visit: ALCOHOL WITHDRAWAL Discharge Diagnosis: Acute alcohol withdrawal Alcohol abuse Condition on Discharge: Good Goals: focus on sobriety, contact sponsor, go to AA meetings Activity: Resume your previous activity Driving/Machine Use: Resume 1 day after discharge Weightbearing: Full weightbearing Non-emergency contact: Primary Care Provider Call non-emergency contact if: you have any medication questions, your symptoms worsen and you have a fever Follow-up/Referrals: Royer Henry III, MD [Primary Care Provider] - 11/29/19 1:50 pm (If you need to change this appointment, please call [phone].) Diet: Heart Healthy Addtl Attending Provider Instructions: Medications: - GABAPENTIN: take 600mg this evening then take 600mg in the morning on Tuesday and Tuesday to complete the taper - ATIVAN: can take 1mg every 12 hours as needed for withdrawal symptoms, DO NOT TAKE MORE THAN PRESCRIBED, DO NOT DRIVE AFTER TAKING ATIVAN - IMODIUM: take every 6 hours as needed for diarrhea, this can be obtained over the counter Alcohol withdrawal complete Gabapentin taper, use Ativan as needed again, you need to take an active role in your sobriety, commit to AA meetings, get a sponsor there cannot be any alcohol in your environment, you will need family support follow up with Dr. Henry in one week Loose stools: no active C diff on testing, use Imodium as needed Pending Studies at Discharge: No Stand-Alone Forms: My [employer], Work/School Release (Inpt), Smoking Cessation Medications and DC Order Prescriptions: New lorazepam 1 mg tablet 1 mg PO Q12H PRN (Reason: alcohol withdrawal) Qty: 10 RF: 0 Continued carvedilol 25 mg tablet 25 mg PO BID Qty: 60 RF: 5 clopidogrel 75 mg tablet 75 mg PO DAILY Qty: 30 RF: 2 atorvastatin [Lipitor] 40 mg tablet 40 mg PO DAILY RF: 0 folic acid 400 mcg tablet 0.4 mg PO DAILY RF: 0 lisinopril 40 mg tablet 40 mg PO DAILY Qty: 1 RF: 0 meloxicam 15 mg tablet 15 mg PO DAILY Qty: 30 RF: 3 acetaminophen-codeine [Tylenol-Codeine #3] 300-30 mg tablet 1 tab PO TID PRN (Reason: pain) Qty: 90 RF: 0 milk thistle 500 mg Capsule 1,000 mg PO BID RF: 0 aspirin [Aspir-Low] 81 mg Tablet,Delayed Release (Dr/Ec) 81 mg PO DAILY RF: 0 ascorbic acid (vitamin C) [Vitamin C] 500 mg Tablet 1,000 mg PO DAILY RF: 0 nitroglycerin [Nitrostat] 0.4 mg Tablet, Sublingual 0.4 mg sublingual UD PRN (Reason: Chest Pain) RF: 0 vitamin B complex Tablet 1 tab PO DAILY RF: 0 glucosamine-chondroitin [Osteo Bi-Flex] 250-200 mg Tablet 1 tab PO BID RF: 0 coenzyme Q10 [Co Q-10] 200 mg Capsule 200 mg PO DAILY RF: 0 [place]-3 350 mg-235 mg- 90 mg-597 mg Capsule,Delayed Release(Dr/Ec) 1 cap PO DAILY RF: 0 Discharge Orders: Discharge Order (Routine); Ordered 11/22/19 Ordered By: David Ackerman Admission Data Admit Date/Time: 11/20/19 03:17 Attending Provider: David Ackerman Admit Provider: Rg Nuñez Primary Care Provider: Royer Henry III Other Providers: Rg Nuñez Other Interventions: Discharge Summary Assessment (RN) Last Done: 11/22/19 11:11 DC Date/Time DO NOT enter until pt leaves facility: 11/22/19 11:57 Coding Level of Care Code D/C Day Management >30 mins Diagnoses Alcohol withdrawal F10.231 Complication of substance-induced condition: with delirium CAD (coronary artery disease) I25.10 Associated angina: without angina Coronary Disease-Associated Artery/Lesion type: unspecified vessel or lesion type [place] vs. transplanted heart: unspecified whether [place] or transplanted heart Ischemic cardiomyopathy I25.5 Hypertension I10 Hypertension type: unspecified Tachycardia R00.0 Hepatitis C B19.20 Hyperlipidemia LDL goal <70 E78.5 Diarrhea R19.7
[2019-11-22] MEDS ORDERED: GABAPENTIN 600 MG TAB PO SCH (13:19)
[2019-11-24] MEDS ORDERED: GABAPENTIN 600 MG TAB PO SCH (01:19)
== END 2019-11-22 11:57 | disposition home or self-care (01) | DRG 897 ==
LOC: ED 00:12 → 2W 03:17 → SUATTDRO 03:17 → 2W 03:38 → 4W 11-22 00:30

== ENCOUNTER 2020-02-05 07:35 | Observation (INO) ==
[2020-02-05] MEDS ORDERED: MULTI-VITAMIN INFUSION 10 ML, THIAMINE HCL 100 MG, FOLIC ACID 1 MG in SODIUM CHLORIDE 0... IV ONE ×2 (07:55→12:15)
[2020-02-05] MEDS ORDERED: LORazepam 2 MG/4 ML VIAL IV STA ×2 (07:55→09:59)
--- NOTE | 2020-02-05 08:19 | Emergency Department Note ---
History of Present Illness General Chief complaint: Alcohol Withdrawal Stated complaint: Alcohol withdrawal Time Seen by Provider: 02/05/20 07:40 Source: patient Mode of arrival: ambulatory Limitations: no limitations History of Present Illness Provider complaint: Alcohol withdrawal Maximum Pain Intensity: 5 This is a 59-year-old male who presents to the ED with a chief complaint of alcohol withdrawal. The patient states that he has had this in the past. He was admitted about 3 months ago for the same. The patient reports that he has been drinking alcohol for the past 6 weeks. He states that he has been drinking about 3012 ounce cans of beer a day. He normally drinks 3-6. The patient states that he was laid off from his work and for this reason, he was drinking more. 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 He awoke feeling very shaky this morning. He denies any other symptoms. He has not had a fever or recent illness. No chest pains or shortness of breath. No headaches. Home Medications Home Medications Medication Instructions Recorded Confirmed Type atorvastatin 40 mg tablet 40 mg PO DAILY 04/23/19 02/05/20 History folic acid 400 mcg tablet 0.4 mg PO DAILY tab 04/23/19 02/05/20 History lisinopril 40 mg tablet 40 mg PO DAILY #1 tab 04/23/19 02/05/20 History carvedilol 25 mg tablet 25 mg PO BID #60 tab 05/17/19 02/05/20 Rx [place]-3 1 cap PO DAILY 10/22/19 02/05/20 History ascorbic acid (vitamin C) [Vitamin 1,000 mg PO DAILY 10/22/19 02/05/20 History C] aspirin [Aspir-Low] 81 mg PO DAILY 10/22/19 02/05/20 History coenzyme Q10 [Co Q-10] 200 mg PO DAILY 10/22/19 02/05/20 History glucosamine-chondroitin [Osteo 1 tab PO BID 10/22/19 02/05/20 History Bi-Flex] milk thistle 1,000 mg PO BID 10/22/19 02/05/20 History nitroglycerin [Nitrostat] 0.4 mg SUBLINGUAL UD PRN 10/22/19 02/05/20 History vitamin B complex 1 tab PO DAILY 10/22/19 02/05/20 History meloxicam 15 mg tablet 15 mg PO DAILY #30 tab 11/01/19 02/05/20 Rx lorazepam 1 mg PO Q12H PRN #10 tab 11/22/19 02/05/20 Rx acetaminophen 300 mg-codeine 30 mg 1 tab PO TID PRN #90 tab 02/04/20 02/05/20 Rx tablet clopidogrel 75 mg tablet 75 mg PO DAILY #30 tab 02/04/20 02/05/20 Rx Allergies Allergy/AdvReac Type Severity Reaction Status Date / Time No Known Allergies Allergy Unverified 02/05/20 08:04 Past Med/Surg History Medical History Alcohol dependence (Chronic) Alcohol withdrawal C. difficile diarrhea CAD (coronary artery disease) (Chronic) "03/29/2017 - anterior STEMI, s/p JEFFREY to LAD" Hepatitis C (Chronic) History of Clostridioides difficile colitis History of GI bleed "secondary to esophageal ulceration on EGD 11/29/2013" HTN (hypertension) Hyperlipidemia LDL goal <70 Ischemic cardiomyopathy (Chronic) "EF 30-35%" Obesity (Chronic) Renal artery stenosis "questionable" Surgical History H/O esophagogastroduodenoscopy "11/29/2013- Large lower esophageal ulceration. No bleeding. Portal hypertensive gastropathy. Erythematous duodenopathy. 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 Beliefs That Will Affect Care: None marital status: Current Living Situation: Spouse Other Information That Helps Us Care for You: No Feels Safe at Home: Yes Safety Concerns: Feels Safe At This Time Smoking Status: Current every day smoker Tobacco Type: cigarettes ; Cigarettes Per Day: 20 ; Second Hand Exposure: Yes ; Hx Alcohol Use: Yes Alcohol type: beer Alcohol Intake Frequency Comment: 30 beers a day for the last 6 weeks Hx Substance Use: Yes substance use type: crack/cocaine Substance Use Type Other:: in the Review of Systems A total of 10 systems reviewed and were otherwise negative Physical Exam Vital Signs Vital Signs - 24 hr 02/05/20 07:39 02/05/20 08:37 02/05/20 08:40 Temperature 36.8 C Temperature Source Oral Pulse Rate 136 H Pulse Rate [Apical] 113 H Respiratory Rate 20 20 Respiratory Effort / Characteristics Non-Labored Spontaneous Respiratory Depth Normal Blood Pressure 96/65 L Blood Pressure [Left Arm] 147/103 H Blood Pressure Mean 75 Blood Pressure Mean [Left Arm] 117 Blood Pressure Position Sitting Pulse Oximetry 96 88 L 97 Oxygen Delivery Method Room Air Room Air Nasal Cannula Oxygen Flow Rate 2 Sepsis Recent Fever Within 48 Hours No Sepsis Action Taken by Nursing No Action Required 02/05/20 09:58 Temperature Temperature Source Pulse Rate Pulse Rate [Apical] 95 H Respiratory Rate 20 Respiratory Effort / Characteristics Respiratory Depth Blood Pressure Blood Pressure [Left Arm] 164/113 H Blood Pressure Mean Blood Pressure Mean [Left Arm] 130 Blood Pressure Position Pulse Oximetry Oxygen Delivery Method Oxygen Flow Rate Sepsis Recent Fever Within 48 Hours Sepsis Action Taken by Nursing CONSTITUTIONAL/VITAL SIGNS: Reviewed / noted above. GENERAL: Non-toxic in appearance. INTEGUMENTARY: Warm, dry, and [place]. HEAD: Normocephalic. EYES: without scleral icterus or trauma. ENT/OROPHARYNX: clear and moist. LYMPHADENOPATHY/NECK: Is supple without lymphadenopathy or meningismus. RESPIRATORY: Lungs clear and equal. CARDIOVASCULAR: Tachycardic rate and regular rhythm. GI/ABDOMEN: Soft and nontender. No organomegaly or pulsatile mass. No rebound or guarding. Normal bowel sounds. EXTREMITIES: Warm and well perfused. BACK: No CVA tenderness. NEUROLOGICAL: Intact without focal deficits. The patient does have some gross motor tremors. PSYCHIATRIC: normal affect. MUSCULOSKELETAL: Normally developed with good muscle tone. TRIAGE NURSING DOCUMENTATION REVIEWED. Course Administered Medications Nicotine (Nicoderm Cq) 21 mg TD QAM WESLY Stop: 03/06/20 08:59 Last Admin: 02/05/20 08:34 Dose: 21 mg Documented by: [id number] Discontinued Medications Lorazepam (Ativan) 2 mg in 4 mls @ 4 mls/min IV NOW STA Stop: 02/05/20 07:56 Last Admin: 02/05/20 08:17 Dose: 4 mls/min Documented by: [id number] Multivitamins 10 ml/ Thiamine HCl 100 mg/ Folic Acid 1 mg/Sodium Chloride 1,011.2 mls @ 1,011.2 mls/hr IV .Q1H ONE Stop: 02/05/20 08:54 Last Infusion: 02/05/20 09:37 Dose: 0 mls/hr Documented by: [id number] Admin: 02/05/20 08:23 Dose: 1,011.2 mls/hr Documented by: [id number] Lorazepam (Ativan) 2 mg in 4 mls @ 4 mls/min IV NOW STA Stop: 02/05/20 10:00 Last Admin: 02/05/20 10:14 Dose: 4 mls/min Documented by: [id number] Medical Decision Making Differential Diagnosis There is no evidence of other toxic ingestions, trauma, anemia, hypoglycemia, head injury or intracranial pathology, meningitis, encephalitis, acute intrathoracic or abdominal pathology or other metabolic condition. Medical Records Attestation: I reviewed the patient's medical records. Home Medications Current Medication List: was personally reviewed by me Laboratory Data Attestation: I reviewed the patient's lab results. Result diagrams: 02/05/20 08:11 02/05/20 08:11 Lab Results 02/05/20 02/05/20 02/05/20 Range/Units 08:11 08:11 08:11 WBC 4.52 L (4.8-10.8) K/uL RBC 4.39 L (4.7-6.1) M/uL Hgb 15.8 (14.0-18.0) g/dL Hct 44.0 (42-52) % MCV 100.2 H (80-100) fL MCH 36.0 H (25-34) pg MCHC 35.9 (32-36) g/dL RDW Std Deviation 51.1 H (36.4-46.3) fL RDW Coeff of [place] 13.9 (11.5-14.5) % Plt Count 123 L (130-400) K/uL MPV 9.9 (7.4-10.4) fL Immature Gran % (Auto) 0.2 % Neut % (Auto) 72.1 % Lymph % (Auto) 16.4 % King % (Auto) 9.3 % Eos % (Auto) 1.3 % Baso % (Auto) 0.7 % Immature Gran # (Auto) 0.01 (0.00-0.02) K/uL Neut # (Auto) 3.26 (1.4-6.5) K/uL Lymph # (Auto) 0.74 L (1.2-3.4) K/uL King # (Auto) 0.42 (0.11-0.59) K/uL Eos # (Auto) 0.06 (0-0.5) K/uL Baso # (Auto) 0.03 (0-0.2) K/uL RBC Morphology Unremarkable Sodium 135 L (136-145) mmol/L Potassium 3.7 (3.5-5.1) mmol/L Chloride 101 (98-107) mmol/L Carbon Dioxide 20 L (21-32) mmol/L Anion Gap 14.0 H (3-11) BUN 5 L (7-18) mg/dl Creatinine 0.60 (0.6-1.4) mg/dl Est Cr Clr Drug Dosing 144.6 ml/min Est GFR ( Amer) 129.4 Est GFR (Non-Af Amer) 111.6 BUN/Creatinine Ratio 9.1 L (10-20) Glucose 112 H (70-99) mg/dl Calcium 8.3 L (8.5-10.1) mg/dl Total Bilirubin 0.6 (0.2-1) mg/dl AST 415 H (15-37) U/L ALT 438 H (12-78) U/L Alkaline Phosphatase 115 (45-117) U/L Total Protein 7.4 (6.4-8.2) gm/dl Albumin 3.4 (3.4-5.0) gm/dl Globulin 4.0 (2.5-4.0) gm/dl Albumin/Globulin Ratio 0.8 L (0.9-2) Ethyl Alcohol mg/dL 264.8 H (0-3) mg/dl ECG Data Attestation: I personally reviewed and interpreted this ECG as follows: Indication: + tachycardia Rate (beats per minute): 130 Rhythm: + sinus tachycardia ECG Intervals/blocks: no Prolonged QT ECG ST segments: no ST elevation ECG Findings: no PVCs Blood Pressure Blood Pressure Findings: Elevated blood pressure Blood Pressure Disposition: further management by hospitalist AI Lr This is a 59-year-old male who presents to the ED with a chief complaint of alcohol withdrawal. The patient states that he has had this in the past. He was admitted about 3 months ago for the same. The patient reports that he has been drinking alcohol for the past 6 weeks. He states that he has been drinking about 3012 ounce cans of beer a day. He normally drinks 3-6. The patient states that he was laid off from his work and for this reason, he was drinking more. 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 He awoke feeling very shaky this morning. He denies any other symptoms. He has not had a fever or recent illness. No chest pains or shortness of breath. No headaches. The patient's physical exam reveals that he is tremulous and has a tachycardia. CBC and chemistry panel was unremarkable. AST and ALT are elevated in the 400 range. This is likely related to his alcohol use. His alcohol level was 264. The patient was provided with IV Ativan as well as a banana bag and a nicotine patch. His twelve-lead EKG shows a sinus tach at a rate of [address] elevation or ectopy. I spoke with the hospitalist about the patient. He will be seen for further inpatient evaluation and care. Cardiac monitoring: An order was placed for continuous cardiac monitoring. The monitor shows a rate of 130 with sinus rhythm. Impression & Plan Alcohol withdrawal, Alcohol intoxication Discharge Plan Visit Data Chief Complaint: Alcohol Withdrawal Stated Complaint: Alcohol withdrawal ED Provider: Goran Mitchell Discharge Problem: Alcohol withdrawal, Alcohol intoxication Forms Stand Alone Forms: My [facility] Prescriptions Prescriptions: No Action carvedilol 25 mg tablet 25 mg PO BID Qty: 60 RF: 5 clopidogrel 75 mg tablet 75 mg PO DAILY Qty: 30 RF: 2 acetaminophen-codeine [Tylenol-Codeine #3] 300-30 mg tablet 1 tab PO TID PRN (Reason: pain) Qty: 90 RF: 0 atorvastatin [Lipitor] 40 mg tablet 40 mg PO DAILY RF: 0 folic acid 400 mcg tablet 0.4 mg PO DAILY RF: 0 lisinopril 40 mg tablet 40 mg PO DAILY Qty: 1 RF: 0 meloxicam 15 mg tablet 15 mg PO DAILY Qty: 30 RF: 3 milk thistle 500 mg Capsule 1,000 mg PO BID RF: 0 aspirin [Aspir-Low] 81 mg Tablet,Delayed Release (Dr/Ec) 81 mg PO DAILY RF: 0 ascorbic acid (vitamin C) [Vitamin C] 500 mg Tablet 1,000 mg PO DAILY RF: 0 nitroglycerin [Nitrostat] 0.4 mg Tablet, Sublingual 0.4 mg sublingual UD PRN (Reason: Chest Pain) RF: 0 vitamin B complex Tablet 1 tab PO DAILY RF: 0 glucosamine-chondroitin [Osteo Bi-Flex] 250-200 mg Tablet 1 tab PO BID RF: 0 coenzyme Q10 [Co Q-10] 200 mg Capsule 200 mg PO DAILY RF: 0 [place]-3 350 mg-235 mg- 90 mg-597 mg Capsule,Delayed Release(Dr/Ec) 1 cap PO DAILY RF: 0 lorazepam 1 mg tablet 1 mg PO Q12H PRN (Reason: alcohol withdrawal) Qty: 10 RF: 0 Discharge Problem: Alcohol withdrawal Qualifiers: Complication of substance-induced condition: with unspecified complication Qualified Code(s): F10.239 - Alcohol dependence with withdrawal, unspecified Alcohol intoxication Qualifiers: Complication of substance-induced condition: uncomplicated Qualified Code(s): F10.920 - Alcohol use, unspecified with intoxication, uncomplicated
[2020-02-05 08:26] LABS: Basophils # (auto) 0.03 K/uL (0-0.2); Basophils % (auto) 0.7 %; Eosinophils # (auto) 0.06 K/uL (0-0.5); Eosinophils % (auto) 1.3 %; Hemoglobin 15.8 g/dL (14.0-18.0); Immature Granulocytes # (auto) 0.01 K/uL (0.00-0.02); Immature Granulocytes % (auto) 0.2 %; Lymphocytes # (auto) 0.74 K/uL (1.2-3.4); Lymphocytes % (auto) 16.4 %; Mean Corpuscular Hgb Conc 35.9 g/dL (32-36); Mean Corpuscular Volume 100.2 fL (80-100); Mean Platelet Volume 9.9 fL (7.4-10.4); Monocytes # (auto) 0.42 K/uL (0.11-0.59); Monocytes % (auto) 9.3 %; Neutrophils # (auto) 3.26 K/uL (1.4-6.5); Neutrophils % (auto) 72.1 %; Platelet Count 123 K/uL (130-400); RDW Coefficient of Variation 13.9 % (11.5-14.5); RDW Standard Deviation 51.1 fL (36.4-46.3); Red Blood Count 4.39 M/uL (4.7-6.1); White Blood Count 4.52 K/uL (4.8-10.8)
[2020-02-05] MEDS: NICOTINE 21 MG/24 HR TDSY TD SCH ×2 (08:34→21:37)
[2020-02-05 08:42] LABS: Albumin Level 3.4 gm/dl (3.4-5.0); BUN Creatinine Ratio 9.1 (10-20); Calcium 8.3 mg/dl (8.5-10.1); Creatinine Clr Calc Pharmacy 144.6 ml/min; Est GFR (African American) 129.4; Est GFR (Non-African American) 111.6; Potassium 3.7 mmol/L (3.5-5.1)
[2020-02-05 08:45] LABS: Albumin Globulin Ratio 0.8 (0.9-2); Bilirubin,Total 0.6 mg/dl (0.2-1); Total Protein 7.4 gm/dl (6.4-8.2)
[2020-02-05 08:57] LABS: RBC Morphology Unremarkable
--- NOTE | 2020-02-05 10:14 | History & Physical Report ---
Date of Service February 05, 2020 Assessment & Plan (1) Alcohol withdrawal: Hx of hospitalization for same in November EtOH level 264 Utox pending Start on gabapentin w/d protocol Tele monitor Monitor electrolytes, WNL on admission Banana bag, thiamine WAS protocol States he was doing well with his alcohol use until he was laid off 6 weeks ago due to COVID (2) Alcohol intoxication: As above (3) Hyperlipidemia LDL goal <70: continue home meds (4) Hypertension: continue home meds (5) Ischemic cardiomyopathy: Noted (6) CAD (coronary artery disease): Aspirin, plavix Stent placed 3-4 yrs ago (7) Hepatitis C: Noted (8) Tobacco use disorder: nicotine patch requested (9) DVT prophylaxis: SCDs given aspirin/plavix use and in the setting of alcohol use and hx of GIB History of Present Illness Primary Care Provider: Royer Henry MD 59 y/o M c/o alcohol withdrawal. Pt states this has happened before and feels similar. He was admitted in November for the same issue and had been doing well until he was laid off from work about 6 weeks ago due to COVID. He states that since that time he has been drinking 30 beers a day. He states that his last beer was 8pm last night. He woke this AM very shaky and weak with n/d and abd cramping. Last diarrhea was in the ED. No true emesis, but he is wretching at times. No hx of seizures with prior withdrawal episodes. He has hallucinated in the past, but not currently. Pt denies fever, SOB, chest pain, LE pain or swelling. Allergies Allergy/AdvReac Type Severity Reaction Status Date / Time No Known Allergies Allergy Unverified 02/05/20 08:04 Home Medications Home Medications Medication Instructions Recorded Confirmed Type atorvastatin 40 mg tablet 40 mg PO DAILY 04/23/19 02/05/20 History folic acid 400 mcg tablet 0.4 mg PO DAILY tab 04/23/19 02/05/20 History lisinopril 40 mg tablet 40 mg PO DAILY #1 tab 04/23/19 02/05/20 History carvedilol 25 mg tablet 25 mg PO BID #60 tab 05/17/19 02/05/20 Rx [place]-3 1 cap PO DAILY 10/22/19 02/05/20 History ascorbic acid (vitamin C) [Vitamin 1,000 mg PO DAILY 10/22/19 02/05/20 History C] aspirin [Aspir-Low] 81 mg PO DAILY 10/22/19 02/05/20 History coenzyme Q10 [Co Q-10] 200 mg PO DAILY 10/22/19 02/05/20 History glucosamine-chondroitin [Osteo 1 tab PO BID 10/22/19 02/05/20 History Bi-Flex] milk thistle 1,000 mg PO BID 10/22/19 02/05/20 History nitroglycerin [Nitrostat] 0.4 mg SUBLINGUAL UD PRN 10/22/19 02/05/20 History vitamin B complex 1 tab PO DAILY 10/22/19 02/05/20 History meloxicam 15 mg tablet 15 mg PO DAILY #30 tab 11/01/19 02/05/20 Rx lorazepam 1 mg PO Q12H PRN #10 tab 11/22/19 02/05/20 Rx acetaminophen 300 mg-codeine 30 mg 1 tab PO TID PRN #90 tab 02/04/20 02/05/20 Rx tablet clopidogrel 75 mg tablet 75 mg PO DAILY #30 tab 02/04/20 02/05/20 Rx Past Med/Surg History Medical History Alcohol dependence (Chronic) Alcohol withdrawal C. difficile diarrhea CAD (coronary artery disease) (Chronic) "03/29/2017 - anterior STEMI, s/p JEFFREY to LAD" Hepatitis C (Chronic) History of Clostridioides difficile colitis History of GI bleed "secondary to esophageal ulceration on EGD 11/29/2013" HTN (hypertension) Hyperlipidemia LDL goal <70 Ischemic cardiomyopathy (Chronic) "EF 30-35%" Obesity (Chronic) Renal artery stenosis "questionable" Surgical History H/O esophagogastroduodenoscopy "11/29/2013- Large lower esophageal ulceration. No bleeding. Portal hypertensive gastropathy. Erythematous duodenopathy. 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 Beliefs That Will Affect Care: None marital status: Current Living Situation: Spouse Feels Safe at Home: Yes Smoking Status: Current every day smoker Tobacco Type: cigarettes ; Cigarettes Per Day: 20 ; Second Hand Exposure: Yes ; Hx Alcohol Use: Yes Alcohol type: beer Alcohol Intake Frequency Comment: 30 beers a day for the last 6 weeks Hx Substance Use: Yes substance use type: crack/cocaine Substance Use Type Other:: in the 80s Review of Systems Review of Systems: Pertinent positives and negatives reviewed in HPI--all oth ers negative Physical Exam Constitutional: WD/WN, vitals as above + ill appearing Eyes: normal visual castle by confrontation and + anicteric sclerae Neck: normal visual inspection and trachea midline Respiratory: normal respiratory effort, lungs clear to auscultation Cardiovascular: Rate/Rhythm: regular rhythm and + tachycardic Gastrointestinal (Abdomen): Inspection/Auscultation: abdomen not distended Percussion/Palpation: abdomen soft; abdomen nontender Musculoskeletal: Head/Neck/Chest: normocephalic and head atraumatic negative for edema, peripheral pulses intact Skin: no rashes, warm and dry Neurologic: awake; not confused Speech / Cognition: normal speech Motor/Sensory: + tremor Psychiatric: Orientation: oriented x 3 Affect: + anxious affect Results & Data Results & Data ([facility]) Vital Signs (Past 12 Hours) Vital Signs Temp Pulse Pulse Resp BP BP Pulse Ox 02/05/20 09:58 95 H 20 164/113 H 02/05/20 08:40 97 02/05/20 08:37 113 H 20 147/103 H 88 L 02/05/20 07:39 36.8 C 136 H 20 96/65 L 96 Code Status & VTE Plan Code Status Full code VTE Prophylaxis Plan VTE Prophylaxis will be ordered: Yes PG Care Time/CCT Total # of Minutes Spent Total Time Spent with Patient: Total time spent is greater than 50% in coordination of care (as documented) at patient's floor/unit and/or counseling patient: Coding Level of Care Code 84697 Initial Inpt Care Lvl 3 Diagnoses Alcohol withdrawal F10.239 Complication of substance-induced condition: with unspecified complication Alcohol intoxication F10.920 Complication of substance-induced condition: uncomplicated Hyperlipidemia LDL goal <70 E78.5 Hypertension I10 Hypertension type: unspecified Ischemic cardiomyopathy I25.5 CAD (coronary artery disease) I25.10 Associated angina: without angina Coronary Disease-Associated Artery/Lesion type: unspecified vessel or lesion type [place] vs. transplanted heart: unspecified whether mcgrath or transplanted heart Hepatitis C B19.20 Tobacco use disorder F17.200 DVT prophylaxis Z29.9 (1) Alcohol withdrawal Complication of substance-induced condition: with unspecified complication Qualified Code(s): F10.239 - Alcohol dependence with withdrawal, unspecified (2) Alcohol intoxication Complication of substance-induced condition: uncomplicated Qualified Code(s): F10.920 - Alcohol use, unspecified with intoxication, uncomplicated (3) Hypertension Hypertension type: unspecified Qualified Code(s): I10 - Essential (primary) hypertension (4) CAD (coronary artery disease) Associated angina: without angina Coronary Disease-Associated Artery/Lesion type: unspecified vessel or lesion type [place] vs. transplanted heart: unspecified whether mcgrath or transplanted heart Qualified Code(s): I25.10 - Atherosclerotic heart disease of mcgrath coronary artery without angina pectoris
[2020-02-05] MEDS ORDERED: LORazepam 3 MG/6 ML VIAL IV PRN (11:30)
[2020-02-05] MEDS ORDERED: NICOTINE 21 MG/24 HR TDSY TD SCH (11:30)
[2020-02-05] MEDS ORDERED: NITROGLYCERIN SL 0.4 MG/TAB TAB SL PRN (11:30)
[2020-02-05] MEDS ORDERED: GABAPENTIN 1200MG ALCOHOL WITHDRAWAL LOAD PO STA (11:30)
[2020-02-05] MEDS ORDERED: ATIVAN IV ALCOHOL WITHDRAWL IV PRN (11:30)
[2020-02-05] MEDS ORDERED: ONDANSETRON INJ 2 MG/ML 2 ML VIAL IV PRN (11:30)
[2020-02-05] MEDS ORDERED: MAGNESIUM HYDROXIDE SUSP 30 ML UDC PO PRN (11:30)
[2020-02-05] MEDS: LORazepam 2 MG/4 ML VIAL IV PRN ×2 (11:42→23:44)
[2020-02-05] MEDS ORDERED: GABAPENTIN 600 MG TAB PO SCH (12:00)
[2020-02-05] MEDS: THIAMINE HCL 100 MG in SYRINGE 9 ML IV SCH (12:22)
[2020-02-05] MEDS: LORazepam 1 MG/2 ML VIAL IV PRN ×3 (13:19→17:59)
[2020-02-05] MEDS ORDERED: carvediloL 25 MG TAB PO ONE (14:09)
[2020-02-05 14:45] LABS: Amphetamines+Metham, Urine Neg (Neg); Barbiturates, Urine Neg (Neg); Benzodiazepine, Urine Neg (Neg); Cocaine, Urine Neg (Neg); MDMA (Ecstacy), Urine Neg (Neg); Methadone, Urine Neg (Neg); Opiate, Urine Neg (Neg); Phencyclidine, Urine Neg (Neg)
--- NOTE | 2020-02-05 15:55 | Electrocardiogram Report ---
Test Reason : Blood Pressure : / mmHG Vent. Rate : 131 BPM Atrial Rate : 131 BPM P-R Int : 152 ms QRS Dur : 096 ms QT Int : 292 ms P-R-T Axes : 000 -59 011 degrees QTc Int : 431 ms Sinus tachycardia Incomplete right bundle branch block Left anterior fascicular block Anterolateral infarct (cited on or before 20-NOV-2019) Abnormal ECG When compared with ECG of 20-NOV-2019 18:48, RSR' pattern in V1 is now Present Confirmed by Luis Fernando Allison ([id number]) on 02/05/2020 3:54:56 PM Referred By: REFERRED SELF Confirmed By:Ruddy Allison
[2020-02-05] MEDS: GABAPENTIN 600 MG TAB PO SCH ×2 (17:49→23:41)
[2020-02-05] MEDS ORDERED: NON-FORMULARY MEDICATION (Glucosamine-Chondroitin [Osteo Bi-Flex] 1 TAB) PO SCH (21:00)
[2020-02-05] MEDS ORDERED: MILK THISTLE 1000 MG PO SCH (21:00)
[2020-02-05] MEDS: carvediloL 25 MG TAB PO SCH (21:27)
[2020-02-05] MEDS: LORazepam 1 MG TAB PO PRN (21:37)
[2020-02-06] MEDS: ACETAMINOPHEN W/CODEINE #3 1 TAB PO PRN ×3 (03:57→17:06)
[2020-02-06] MEDS: ACETAMINOPHEN 325 MG TAB PO PRN ×2 (05:43→22:54)
[2020-02-06] MEDS: LORazepam 2 MG/4 ML VIAL IV PRN (05:53)
[2020-02-06 07:18] LABS: BUN Creatinine Ratio 17.1 (10-20); Calcium 8.7 mg/dl (8.5-10.1); Creatinine Clr Calc Pharmacy 114.5 ml/min; Est GFR (African American) 116.8; Est GFR (Non-African American) 100.7; Magnesium 2.3 mg/dl (1.8-2.4); Phosphorus 3.8 mg/dl (2.5-4.9); Potassium 3.8 mmol/L (3.5-5.1)
[2020-02-06] MEDS: GABAPENTIN 600 MG TAB PO SCH ×3 (07:28→22:54)
[2020-02-06] MEDS: lisinopriL 40 MG TAB PO SCH (07:28)
[2020-02-06] MEDS: FOLIC ACID 400 MCG TAB PO SCH (07:29)
[2020-02-06] MEDS: carvediloL 25 MG TAB PO SCH ×2 (07:29→19:52)
[2020-02-06] MEDS: ATORVASTATIN 40 MG TAB PO SCH (07:29)
[2020-02-06] MEDS: ASCORBIC ACID 500 MG TAB PO SCH (07:30)
[2020-02-06] MEDS: MELOXICAM 7.5 MG TAB PO SCH (07:30)
[2020-02-06] MEDS: CLOPIDOGREL BISULFATE 75 MG TAB PO SCH (07:31)
[2020-02-06] MEDS: VITAMIN B COMPLEX TAB PO SCH (07:31)
[2020-02-06] MEDS: NICOTINE 21 MG/24 HR TDSY TD SCH (07:32)
[2020-02-06] MEDS: ASPIRIN 81 MG ECTAB PO SCH (07:32)
[2020-02-06] MEDS: OMEGA-3 (PURIFIED FISH OIL) 1 GM CAP PO SCH (07:33)
[2020-02-06] MEDS: LORazepam 1 MG TAB PO PRN ×2 (07:40→19:47)
[2020-02-06] MEDS ORDERED: NON-FORMULARY MEDICATION (Coenzyme Q10 [Co Q-10] 200 MG) PO SCH (09:00)
[2020-02-06] MEDS: LORazepam 1 MG/2 ML VIAL IV PRN ×4 (09:19→16:24)
[2020-02-06] MEDS: THIAMINE HCL 100 MG in SYRINGE 9 ML IV SCH (09:26)
--- NOTE | 2020-02-06 12:08 | Hospitalist Progress Note ---
Date of Service February 06, 2020 Assessment & Plan (1) Alcohol withdrawal: Hx of hospitalization for same in November EtOH level 264 Utox neg Start on gabapentin w/d protocol Tele monitor Monitor electrolytes, WNL on admission Banana bag, thiamine WAS protocol States he was doing well with his alcohol use until he was laid off 6 weeks ago due to COVID (2) Alcohol intoxication: As above (3) Hyperlipidemia LDL goal <70: continue home meds (4) Hypertension: continue home meds (5) Ischemic cardiomyopathy: Noted (6) CAD (coronary artery disease): Aspirin, plavix Stent placed 3-4 yrs ago (7) Hepatitis C: Noted (8) Tobacco use disorder: nicotine patch requested (9) DVT prophylaxis: SCDs given aspirin/plavix use and in the setting of alcohol use and hx of GIB Admission and Anticipated Discharge Date Admission Date: February 05, 2020 Subjective Pt is still shaky and anxious, but it is better than yesterday. He tells me today that his last alcohol was "a can of beer on my way over here yesterday morning, I must have been confused when I told you the night before." Pt says his nausea has resolved. He has also not had a bowel movement since admission. He does not feel constipated, but is now no longer having diarrhea either. He ate without issue other than some UE shaking. Pt denies fever, SOB, chest pain, abd pain, LE swelling. Pt was to have his L hip replaced, however his surgery was put on hold due to COVID. He is having increased pain to this hip due to the hospital bed. Review of Systems Review of Systems: Pertinent positives and negatives reviewed in HPI--all others negative Physical Exam Constitutional: WD/WN, vitals as above Eyes: normal visual castle by confrontation and + anicteric sclerae Neck: normal visual inspection and trachea midline Respiratory: normal respiratory effort, lungs clear to auscultation Cardiovascular: Rate/Rhythm: regular rhythm and + tachycardic Gastrointestinal (Abdomen): Inspection/Auscultation: + abdomen distended Percussion/Palpation: abdomen soft; abdomen nontender Musculoskeletal: Head/Neck/Chest: normocephalic and head atraumatic Skin: no rashes, warm and dry Neurologic: awake; not confused Speech / Cognition: normal speech Motor/Sensory: + tremor (present, but less) Psychiatric: Orientation: oriented x 3 Affect: + anxious affect Results & Data Results & Data ([facility]) Vital Signs (Past 12 Hours) Vital Signs Temp Pulse Resp BP BP Pulse Ox 02/06/20 11:43 36.3 C L 76 20 116/77 96 02/06/20 07:21 36.8 C 78 20 137/95 95 02/06/20 03:49 36.9 C 80 21 135/96 94 02/06/20 01:25 36.8 C 79 18 131/93 95 02/06/20 00:17 37.0 C 90 20 141/97 H 95 PG Care Time/CCT Total # of Minutes Spent Total Time Spent with Patient: Total time spent is greater than 50% in coordination of care (as documented) at patient's floor/unit and/or counseling patient: Coding Level of Care Code 32400 Subseq Hosp Care Lvl 3 Diagnoses Alcohol withdrawal F10.239 Complication of substance-induced condition: with unspecified complication Alcohol intoxication F10.920 Complication of substance-induced condition: uncomplicated Hyperlipidemia LDL goal <70 E78.5 Hypertension I10 Hypertension type: unspecified Ischemic cardiomyopathy I25.5 CAD (coronary artery disease) I25.10 Associated angina: without angina Coronary Disease-Associated Artery/Lesion type: unspecified vessel or lesion type [place] vs. transplanted heart: unspecified whether [place] or transplanted heart Hepatitis C B19.20 Tobacco use disorder F17.200 DVT prophylaxis Z29.9 (1) Alcohol withdrawal Complication of substance-induced condition: with unspecified complication Qualified Code(s): F10.239 - Alcohol dependence with withdrawal, unspecified (2) Alcohol intoxication Complication of substance-induced condition: uncomplicated Qualified Code(s): F10.920 - Alcohol use, unspecified with intoxication, uncomplicated (3) Hypertension Hypertension type: unspecified Qualified Code(s): I10 - Essential (primary) hypertension (4) CAD (coronary artery disease) Associated angina: without angina Coronary Disease-Associated Artery/Lesion type: unspecified vessel or lesion type [place] vs. transplanted heart: unspecified whether [place] or transplanted heart Qualified Code(s): I25.10 - Atherosclerotic heart disease of [place] coronary artery without angina pectoris
[2020-02-06] MEDS ORDERED: MULTI-VITAMIN INFUSION 10 ML, THIAMINE HCL 100 MG, FOLIC ACID 1 MG in SODIUM CHLORIDE 0... IV ONE (12:45)
[2020-02-07] MEDS: ACETAMINOPHEN W/CODEINE #3 1 TAB PO PRN ×4 (00:10→18:52)
[2020-02-07] MEDS: LORazepam 2 MG/4 ML VIAL IV PRN (00:10)
[2020-02-07] MEDS: ACETAMINOPHEN 325 MG TAB PO PRN (04:10)
[2020-02-07] MEDS: LORazepam 1 MG/2 ML VIAL IV PRN ×6 (06:08→20:49)
[2020-02-07 08:37] LABS: Prothrombin Time 10.2 Seconds (9.0-12.0)
[2020-02-07 08:54] LABS: Albumin Level 3.1 gm/dl (3.4-5.0); BUN Creatinine Ratio 18.2 (10-20); Calcium 8.8 mg/dl (8.5-10.1); Creatinine Clr Calc Pharmacy 137.4 ml/min; Est GFR (African American) 125.2; Potassium 4.2 mmol/L (3.5-5.1)
[2020-02-07 08:57] LABS: Albumin Globulin Ratio 0.8 (0.9-2); Bilirubin,Total 0.9 mg/dl (0.2-1); Globulin 3.7 gm/dl (2.5-4.0); Total Protein 6.9 gm/dl (6.4-8.2)
[2020-02-07] MEDS ORDERED: THIAMINE HCL IV SCH (09:00)
[2020-02-07] MEDS ORDERED: DEXTROSE 5% IV SCH (09:00)
[2020-02-07] MEDS: ATORVASTATIN 40 MG TAB PO SCH (09:22)
[2020-02-07] MEDS: NICOTINE 21 MG/24 HR TDSY TD SCH (09:22)
[2020-02-07] MEDS: MELOXICAM 7.5 MG TAB PO SCH (09:23)
[2020-02-07] MEDS: lisinopriL 40 MG TAB PO SCH (09:23)
[2020-02-07] MEDS: VITAMIN B COMPLEX TAB PO SCH (09:23)
[2020-02-07] MEDS: CLOPIDOGREL BISULFATE 75 MG TAB PO SCH (09:23)
[2020-02-07] MEDS: ASPIRIN 81 MG ECTAB PO SCH (09:24)
[2020-02-07] MEDS: ASCORBIC ACID 500 MG TAB PO SCH (09:24)
[2020-02-07] MEDS: FOLIC ACID 400 MCG TAB PO SCH (09:24)
[2020-02-07] MEDS: carvediloL 25 MG TAB PO SCH ×2 (09:24→20:19)
[2020-02-07] MEDS: THIAMINE HCL 200 MG in SODIUM CHLORIDE 0.9% 50 ML IV SCH ×2 (09:25→20:13)
[2020-02-07] MEDS: OMEGA-3 (PURIFIED FISH OIL) 1 GM CAP PO SCH (09:28)
[2020-02-07] MEDS: GABAPENTIN 600 MG TAB PO SCH ×2 (11:47→23:48)
[2020-02-07] MEDS: LORazepam 1 MG TAB PO PRN (11:48)
[2020-02-07] MEDS: OXYCODONE HCL IR 5 MG TAB (IMMEDIATE RELEASE) PO PRN ×2 (15:49→23:48)
[2020-02-08] MEDS: LORazepam 1 MG/2 ML VIAL IV PRN ×4 (00:16→20:10)
[2020-02-08] MEDS: ACETAMINOPHEN W/CODEINE #3 1 TAB PO PRN ×3 (04:30→21:46)
[2020-02-08] MEDS ORDERED: HydrALAZINE HCL 20 MG/ML VIAL IV STA (04:38)
--- NOTE | 2020-02-08 07:29 | Hospitalist Progress Note ---
Date of Service February 07, 2020 Assessment & Plan (1) Alcohol withdrawal: slowly improving increase thiamine 200mg BID cont gabapentin protocol cont etoh withdrawal protocol with ativan prn ambulate (2) Alcohol intoxication: As above strong desire to remain sober post-d/c going to retry AA he was sober x 19 years in the past (3) Hyperlipidemia LDL goal <70: hold statin due to abnormal LFTs (4) Hypertension: continue home meds (5) Ischemic cardiomyopathy: no evidence of CHF (6) CAD (coronary artery disease): Aspirin, plavix cont coreg Stent placed 3-4 yrs ago hold statin (7) Hepatitis C: noted need to speak to him about [facility] treatment (8) Tobacco use disorder: nicotine patch (9) Chronic pain syndrome: ok with oxycodone q8h prn (10) Acute alcoholic hepatitis: ast/alt slowly improving hold statin repeat LFTs in 48 hours (11) DVT prophylaxis: if he stays beyond tomorrow am add lovenox daily Admission and Anticipated Discharge Date Admission Date: February 05, 2020 Subjective patient c/o chronic hip and back pain receives tylenol w/ codeine prn per his PCP still having tremors and using ativan frequently he has strong desire to remain sober post-d/c but his and his 's aunt drink very heavily at home; neither of them want to quit Review of Systems Constitutional: no fever Respiratory: no cough and no dyspnea Cardiovascular: no chest pain Gastrointestinal: no abdominal pain and no diarrhea/loose stools Physical Exam Constitutional: no acute distress and no altered mental status Eyes: + nystagmus (horizontal - mild) ENMT: external ear and nose normal, oropharynx normal Respiratory: normal respiratory effort, lungs clear to auscultation Cardiovascular: RRR, no murmur, no edema Heart Sounds: normal S1 and normal S2 Vessels: posterior tibial pulses present and dorsalis pedis pulses present; no JVD Gastrointestinal (Abdomen): normal bowel sounds, soft, nontender, no hepatosplenomegaly Neurologic: Motor/Sensory: + tremor Psychiatric: A+Ox3, euthymic affect Results & Data Results & Data ([facility]) Vital Signs (Past 12 Hours) Vital Signs Temp Pulse Pulse Resp BP Pulse Ox 02/08/20 05:38 115/80 02/08/20 04:08 36.4 C L 69 18 170/107 H 96 02/08/20 00:00 62 02/07/20 23:23 36.6 C 66 18 175/105 H 96 Laboratory Results Laboratory Results - last 24 hr 02/07/20 02/07/20 08:04 08:04 PT 10.2 INR 1.0 Sodium 140 Potassium 4.2 Chloride 107 Carbon Dioxide 24 Anion Gap 10.0 BUN 12 Creatinine 0.65 Est Cr Clr Drug Dosing 137.4 Est GFR ( Amer) 125.2 Est GFR (Non-Af Amer) 108.0 BUN/Creatinine Ratio 18.2 Glucose 106 H Calcium 8.8 Total Bilirubin 0.9 AST 231 H ALT 310 H Alkaline Phosphatase 104 Total Protein 6.9 Albumin 3.1 L Globulin 3.7 Albumin/Globulin Ratio 0.8 L PG Care Time/CCT Total # of Minutes Spent Total Time Spent with Patient: Total time spent is greater than 50% in coordination of care (as documented) at patient's floor/unit and/or counseling patient: Coding Level of Care Code 98516 Subseq Hosp Care Lvl 2 Diagnoses Alcohol withdrawal F10.239 Complication of substance-induced condition: with unspecified complication Alcohol intoxication F10.920 Complication of substance-induced condition: uncomplicated Hyperlipidemia LDL goal <70 E78.5 Hypertension I10 Hypertension type: unspecified Ischemic cardiomyopathy I25.5 CAD (coronary artery disease) I25.10 Associated angina: without angina Coronary Disease-Associated Artery/Lesion type: unspecified vessel or lesion type [place] vs. transplanted heart: unspecified whether [place] or transplanted heart Hepatitis C B19.20 Tobacco use disorder F17.200 Chronic pain syndrome G89.4 Acute alcoholic hepatitis K70.10 DVT prophylaxis Z29.9 (1) Alcohol withdrawal Complication of substance-induced condition: with unspecified complication Qualified Code(s): F10.239 - Alcohol dependence with withdrawal, unspecified (2) Alcohol intoxication Complication of substance-induced condition: uncomplicated Qualified Code(s): F10.920 - Alcohol use, unspecified with intoxication, uncomplicated (3) Hypertension Hypertension type: unspecified Qualified Code(s): I10 - Essential (primary) hypertension (4) CAD (coronary artery disease) Associated angina: without angina Coronary Disease-Associated Artery/Lesion type: unspecified vessel or lesion type [place] vs. transplanted heart: unspecified whether [place] or transplanted heart Qualified Code(s): I25.10 - Atherosclerotic heart disease of [place] coronary artery without angina pectoris
[2020-02-08] MEDS: lisinopriL 40 MG TAB PO SCH (08:13)
[2020-02-08] MEDS: ASCORBIC ACID 500 MG TAB PO SCH (08:13)
[2020-02-08] MEDS: CLOPIDOGREL BISULFATE 75 MG TAB PO SCH (08:14)
[2020-02-08] MEDS: MELOXICAM 7.5 MG TAB PO SCH (08:14)
[2020-02-08] MEDS: OMEGA-3 (PURIFIED FISH OIL) 1 GM CAP PO SCH (08:14)
[2020-02-08] MEDS: VITAMIN B COMPLEX TAB PO SCH (08:14)
[2020-02-08] MEDS: NICOTINE 21 MG/24 HR TDSY TD SCH (08:15)
[2020-02-08] MEDS: FOLIC ACID 400 MCG TAB PO SCH (08:15)
[2020-02-08] MEDS: carvediloL 25 MG TAB PO SCH ×2 (08:15→20:11)
[2020-02-08] MEDS: ASPIRIN 81 MG ECTAB PO SCH (08:15)
[2020-02-08] MEDS: THIAMINE HCL 200 MG in SODIUM CHLORIDE 0.9% 50 ML IV SCH ×2 (09:46→20:11)
[2020-02-08] MEDS: OXYCODONE HCL IR 5 MG TAB (IMMEDIATE RELEASE) PO PRN ×2 (11:11→20:11)
[2020-02-08] MEDS: LORazepam 2 MG/4 ML VIAL IV PRN ×2 (12:34→16:12)
--- NOTE | 2020-02-08 13:12 | XRay Report ---
XR hip LT min 2V CLINICAL HISTORY: 59 years-old Male presenting with pain; OA?. TECHNIQUE: Frontal and right leg lateral views of the left hip were obtained. COMPARISON: Correlation made to CT of abdomen and pelvis from 09/19/2017. FINDINGS: Left hip joint congruent. Moderate superior predominant joint space loss. There is mild subchondral s clerosis of the femoral head and acetabulum. Cystic change in the acetabulum suspected. Moderate oste ophytosis at the inferior femoral head. No acute fracture or malalignment. Visualized portion of the bony pelvis intact. No radiographic soft tissue abnormality. IMPRESSION: Moderate osteoarthrosis of the left hip. Involvement of the acetabulum. ACT 112: Negative or not required by law. Electronically signed by: Flaquito Yanez M.D. 02/08/2020 1:10 PM
[2020-02-08] MEDS ORDERED: BENZOCAINE/TETRACAIN/BUTAM CAN 200 APPLN/20 GM CAN EXT PRN (14:25)
[2020-02-08] MEDS ORDERED: LIDOCAINE HCL 1% 20 ML VIAL INJ ONE (14:25)
[2020-02-08] MEDS ORDERED: BUPIVACAINE 0.25% 30 ML VIAL INFIL ONE (14:35)
[2020-02-08] MEDS ORDERED: TRIAMCINOLONE ACET 40 MG/ML VIAL IM ONE (14:35)
--- NOTE | 2020-02-08 19:06 | Procedure Note ---
Procedure Note Date of Service February 08, 2020 Procedure: left trochanteric bursal injection Reason: left trochanteric bursitis Consent: signed, in chart; risks vs benefits discussed; alternatives discussed Description: After identification of landmarks, the left lateral hip/tronchanteric bursal region was prepped with betadine in sterile fashion. After allowing betadine to dry, topical cetacaine spray was used for topical analgesia. Then, using 2.5" spinal needle, a 5cc mix of 40mg of kenalog/2cc of 1% lidocaine/2cc of 0.25% marcaine was injected on first attempt into the left trochanteric bursa. Patient experienced immediate relief of pain. No blood loss. No complications. Band-aid applied. Zohaib Shane MD Coding [facility] [place] Procedure Codes (Charges) Indication for Procedure Indication for procedure: cpt code: 13401 (arthrocentesis, aspiration, and/or injection major joint without u/s guidance)
--- NOTE | 2020-02-08 19:07 | Hospitalist Progress Note ---
Date of Service February 08, 2020 Assessment & Plan (1) Alcohol withdrawal: ongoing he is not ready nor safe for discharge (ataxic, unsteady on feet, significant tremors, ongoing ativan use, etc) cont gabapentin protocol cont etoh withdrawal protocol with ativan prn cont thiamine 200mg BID cont folic acid mvi patient heavily motivated to stay sober post-d/c he voiced this week he had a 19 year period of sobriety years ago plans to attend AA (2) Alcohol intoxication: at admission - resolved now with withdrawal (3) Hyperlipidemia LDL goal <70: hold statin due to abnormal LFTs (4) Hypertension: continue home meds (5) Ischemic cardiomyopathy: no evidence of decompensated CHF echo 2018 with EF 55-60% cont BB, SARI (6) CAD (coronary artery disease): cont aspirin, plavix cont coreg Stent placed 3-4 yrs ago hold statin due to LFTs being high (7) Hepatitis C: noted need to speak to him about [facility] treatment and need for 6 months minimum of sobriety to receive Rx (8) Tobacco use disorder: nicotine patch (9) Chronic pain syndrome: cont oxycodone q8h prn typically receives tylenol w/ codeine on prn basis by PCP (10) Acute alcoholic hepatitis: ast/alt slowly improving hold statin repeat LFTs in am (11) Trochanteric bursitis of left hip: has moderate OA of left hip but pain is on lateral hip and exam is c/w bursitis see procedure note for injection (12) Left hip pain: 2nd trochanteric bursitis OA likely plays a role as well but denies groin pain and ROM of joint does not cause intrinsic pain (13) DVT prophylaxis: lovenox daily not ready for discharge PT eval appreciated; not safe for d/c at this time due to ataxia from etoh withdrawal but should be able to return home at discharge with services once withdrawal has completed Admission and Anticipated Discharge Date Admission Date: February 05, 2020 Subjective patient c/o left hip pain. present for 6 months. states he was to see [facility] orthopedics for "arthritis". hurts to lay on left hip. hurts to walk. no groin pain. 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 denies lumbar back pain. pain is on lateral aspect of hip. bothers him at night. unsteady on feet when walking to bathroom. still with shakes. with that said he overall feels better than previous days. eating well. moving bowels. denies pain in other locations. Review of Systems Constitutional: no fever and no chills Respiratory: no cough and no dyspnea Cardiovascular: no chest pain Gastrointestinal: no abdominal pain, no nausea and no vomiting Musculoskeletal: as per Subjective / HPI; no back pain and no radicular pain Physical Exam Constitutional: no acute distress and no altered mental status Eyes: + nystagmus (horizontal - mild) ENMT: external ear and nose normal, oropharynx normal Respiratory: normal respiratory effort, lungs clear to auscultation Cardiovascular: RRR, no murmur, no edema Heart Sounds: normal S1 and normal S2 Vessels: posterior tibial pulses present and dorsalis pedis pulses present; no JVD Gastrointestinal (Abdomen): normal bowel sounds, soft, nontender, no hepatosplenomegaly Musculoskeletal: left hip - very tender over greater trochanter with palpation. No pain of the hip with passive flexion/extension. Forced adduction of hip causes pain over the greater trochanter. No deformity. Minimal leg- length discrepancy between the 2 legs. Neurologic: Motor/Sensory: + tremor Gait: + ataxic gait and + wide-based gait Psychiatric: A+Ox3, euthymic affect Results & Data Results & Data ([facility]) Vital Signs (Past 12 Hours) Vital Signs Temp Pulse Pulse Resp BP BP Pulse Ox 02/08/20 17:02 36.5 C 86 18 144/95 H 93 02/08/20 16:00 88 02/08/20 15:40 36.8 C 86 18 149/97 H 97 02/08/20 14:02 36.6 C 91 H 18 151/100 H 97 02/08/20 12:29 36.7 C 98 H 20 157/104 H 97 02/08/20 11:22 36.6 C 88 18 133/90 97 02/08/20 09:49 37.3 C 87 20 124/87 97 02/08/20 08:00 72 02/08/20 07:30 36.6 C 78 20 148/94 H 98 Diagnostic Findings left hip x-rays - moderate OA changes, no fracture PG Care Time/CCT Total # of Minutes Spent Total Time Spent with Patient: Total time spent is greater than 50% in coordina tion of care (as documented) at patient's floor/unit and/or counseling patient: Coding Level of Care Code 92574 Subseq Hosp Care Lvl 3 (25 - SIGNIFICANT, SEPARATELY IDENTIFIABLE ) Diagnoses Alcohol withdrawal F10.239 Complication of substance-induced condition: with unspecified complication Alcohol intoxication F10.920 Complication of substance-induced condition: uncomplicated Hyperlipidemia LDL goal <70 E78.5 Hypertension I10 Hypertension type: unspecified Ischemic cardiomyopathy I25.5 CAD (coronary artery disease) I25.10 Associated angina: without angina Coronary Disease-Associated Artery/Lesion type: unspecified vessel or lesion type [place] vs. transplanted heart: unspecified whether [place] or transplanted heart Hepatitis C B18.2 Viral hepatitis chronicity: chronic Hepatic coma status: without hepatic coma Tobacco use disorder F17.200 Chronic pain syndrome G89.4 Acute alcoholic hepatitis K70.10 Trochanteric bursitis of left hip M70.62 Left hip pain M25.552 DVT prophylaxis Z29.9 CPT Codes Drain/Inject Joint/Bursa Major - 40648 ([id number]) (1) CAD (coronary artery disease) Associated angina: without angina Coronary Disease-Associated Artery/Lesion type: unspecified vessel or lesion type [place] vs. transplanted heart: unspecified whether [place] or transplanted heart Qualified Code(s): I25.10 - Atherosclerotic heart disease of [place] coronary artery without angina pectoris (2) Alcohol withdrawal Complication of substance-induced condition: with unspecified complication Qualified Code(s): F10.239 - Alcohol dependence with withdrawal, unspecified (3) Alcohol intoxication Complication of substance-induced condition: uncomplicated Qualified Code(s): F10.920 - Alcohol use, unspecified with intoxication, uncomplicated (4) Hepatitis C Viral hepatitis chronicity: chronic Hepatic coma status: without hepatic coma Qualified Code(s): B18.2 - Chronic viral hepatitis C (5) Hypertension Hypertension type: unspecified Qualified Code(s): I10 - Essential (primary) hypertension
[2020-02-08] MEDS: LORazepam 1 MG TAB PO PRN (21:46)
[2020-02-09] MEDS ORDERED: GABAPENTIN 600 MG TAB PO SCH
[2020-02-09] MEDS: ACETAMINOPHEN W/CODEINE #3 1 TAB PO PRN ×2 (04:02→10:21)
[2020-02-09] MEDS: OXYCODONE HCL IR 5 MG TAB (IMMEDIATE RELEASE) PO PRN ×2 (06:38→14:31)
[2020-02-09 07:25] LABS: Hematocrit (blood only) 42.3 % (42-52); Hemoglobin 14.5 g/dL (14.0-18.0); Mean Corpuscular Hemoglobin 35.2 pg (25-34); Mean Corpuscular Hgb Conc 34.3 g/dL (32-36); Mean Corpuscular Volume 102.7 fL (80-100); Mean Platelet Volume 10.5 fL (7.4-10.4); Platelet Count 133 K/uL (130-400); RDW Coefficient of Variation 13.8 % (11.5-14.5); RDW Standard Deviation 51.4 fL (36.4-46.3); Red Blood Count 4.12 M/uL (4.7-6.1); White Blood Count 5.04 K/uL (4.8-10.8)
[2020-02-09 07:50] LABS: Calcium 8.8 mg/dl (8.5-10.1); Creatinine Clr Calc Pharmacy 121.8 ml/min; Est GFR (African American) 120.7; Est GFR (Non-African American) 104.2; Potassium 3.7 mmol/L (3.5-5.1)
[2020-02-09 07:53] LABS: Albumin Globulin Ratio 0.8 (0.9-2); Bilirubin,Total 0.8 mg/dl (0.2-1); Globulin 3.8 gm/dl (2.5-4.0); Total Protein 6.8 gm/dl (6.4-8.2)
[2020-02-09] MEDS: LORazepam 2 MG/4 ML VIAL IV PRN (08:24)
[2020-02-09] MEDS: FOLIC ACID 400 MCG TAB PO SCH (08:31)
[2020-02-09] MEDS: MELOXICAM 7.5 MG TAB PO SCH (08:31)
[2020-02-09] MEDS: carvediloL 25 MG TAB PO SCH (08:31)
[2020-02-09] MEDS: ASPIRIN 81 MG ECTAB PO SCH (08:31)
[2020-02-09] MEDS: CLOPIDOGREL BISULFATE 75 MG TAB PO SCH (08:32)
[2020-02-09] MEDS: NICOTINE 21 MG/24 HR TDSY TD SCH (08:32)
[2020-02-09] MEDS: lisinopriL 40 MG TAB PO SCH (08:32)
[2020-02-09] MEDS: OMEGA-3 (PURIFIED FISH OIL) 1 GM CAP PO SCH (08:32)
[2020-02-09] MEDS: ASCORBIC ACID 500 MG TAB PO SCH (08:32)
[2020-02-09] MEDS: VITAMIN B COMPLEX TAB PO SCH (08:32)
[2020-02-09] MEDS ORDERED: CEROVITE ADV FORMULA TAB PO SCH (09:00)
[2020-02-09] MEDS ORDERED: ENOXAPARIN INJ 40 MG/0.4 ML SYR SQ SCH (09:00)
[2020-02-09] MEDS: THIAMINE HCL 200 MG in SODIUM CHLORIDE 0.9% 50 ML IV SCH (10:21)
--- NOTE | 2020-02-09 15:57 | Discharge Summary ---
Date of Service February 09, 2020 Admission HPI Per Admitting Provider 59 y/o M c/o alcohol withdrawal. Pt states this has happened before and feels similar. He was admitted in November for the same issue and had been doing well until he was laid off from work about 6 weeks ago due to COVID. He states that since that time he has been drinking 30 beers a day. He states that his last beer was 8pm last night. He woke this AM very shaky and weak with n/d and abd cramping. Last diarrhea was in the ED. No true emesis, but he is wretching at times. No hx of seizures with prior withdrawal episodes. He has hallucinated in the past, but not currently. Pt denies fever, SOB, chest pain, LE pain or swelling. Principal Diagnosis Alcohol withdrawal Discharge Exam Constitutional WD/WN, vitals as above well developed, well nourished and + well hydrated; no acute distress Eyes PERRL, conjunctivae normal, anicteric sclerae ENMT external ear and nose normal, oropharynx normal Neck trachea midline, no thyromegaly Respiratory normal respiratory effort; no respiratory distress Cardiovascular Rate/Rhythm: regular rate; not tachycardic Gastrointestinal (Abdomen) Inspection/Auscultation: abdomen not distended and no abdominal edema Musculoskeletal Head/Neck/Chest: normocephalic Skin no rashes, warm and dry Psychiatric A+Ox3, euthymic affect Orientation: oriented x 3 Apperance: appropriately groomed Eye Contact: good eye contact Motor Behavior: steady gait and station Speech: normal rate/rhythm/volume of speech; no pressured speech Suicidal Thoughts: denies suicidal thoughts Homicidal Thoughts: denies homicidal thoughts Hallucinations: no auditory hallucinations and no visual hallucinations Cognition: recent memory grossly intact, remote memory grossly intact and attention grossly intact Insight: good insight Discharge Data Allergies Allergy/AdvReac Type Severity Reaction Status Date / Time No Known Allergies Allergy Unverified 02/05/20 08:04 Consultations 02/05/20 09:54 ED Decision to Admit Stat Hospital Course (1) Alcohol withdrawal: On the day of discharge, the patient told me he felt much better. Discussed with nursing as well and they noted that he had not used any as needed Ativan since early this morning. He unsteadiness on his feet that was described in previous documentations is not evident now; he has a very minor resting tremor of his hands. He is able to ambulate across the room several times without any evidence of steadiness; the ataxia that was noted yesterday has resolved. He remains heavily motivated to stay sober post discharge; fortunately he is back to work now and he tells me that he really drank out of boredom when he was laid off during the early weeks of the pandemic. The patient had achieved total abstinence for a period of nearly 20 years prior to his recent relapses. (2) Alcohol intoxication: Elevated RUIZ upon admission, resolved. (3) Hyperlipidemia LDL goal <70: Remains on atorvastatin 40 mg daily, continued from home Note elevated liver enzymes Monitor as outpatient (4) Hypertension: Continue home medications His blood pressure looks excellent on the day of discharge (5) Ischemic cardiomyopathy: Noted (6) CAD (coronary artery disease): Quiescent Aspirin, plavix Stent placed 3-4 yrs ago (7) Hepatitis C: Noted (8) Tobacco use disorder: nicotine patch requested (9) DVT prophylaxis: SCDs given aspirin/plavix use and in the setting of alcohol use and hx of GIB Total Time Total Time Spent Total Time Spent (In Minutes): 25 Discharge Plan Discharge Items Patient Disposition: Home - Self-Care Reason For Visit: Alcohol withdrawal Discharge Diagnosis: Alcohol withdrawal Condition on Discharge: Good Activity: Resume your previous activity Lifting: Gradually increase as tolerated Bathing: No limitations Sexual Activity: When tolerated Exercise/Sports: Gradually increase as tolerated Driving/Machine Use: No limitations Non-emergency contact: Primary Care Provider Call non-emergency contact if: you have any medication questions Follow-up/Referrals: Royer Henry III, MD [Primary Care Provider] - Diet: Heart Healthy Addtl Attending Provider Instructions: none Pending Studies at Discharge: No (Follow-up with primary care provider in 1 week) Stand-Alone Forms: [facility] [place], Smoking Cessation Medications and DC Order Prescriptions: Continued carvedilol 25 mg tablet 25 mg PO BID Qty: 60 RF: 5 clopidogrel 75 mg tablet 75 mg PO DAILY Qty: 30 RF: 2 acetaminophen-codeine [Tylenol-Codeine #3] 300-30 mg tablet 1 tab PO TID PRN (Reason: pain) Qty: 90 RF: 0 atorvastatin [Lipitor] 40 mg tablet 40 mg PO DAILY RF: 0 folic acid 400 mcg tablet 0.4 mg PO DAILY RF: 0 lisinopril 40 mg tablet 40 mg PO DAILY Qty: 1 RF: 0 meloxicam 15 mg tablet 15 mg PO DAILY Qty: 30 RF: 3 milk thistle 500 mg Capsule 1,000 mg PO BID RF: 0 aspirin [Aspir-Low] 81 mg Tablet,Delayed Release (Dr/Ec) 81 mg PO DAILY RF: 0 ascorbic acid (vitamin C) [Vitamin C] 500 mg Tablet 1,000 mg PO DAILY RF: 0 nitroglycerin [Nitrostat] 0.4 mg Tablet, Sublingual 0.4 mg sublingual UD PRN (Reason: Chest Pain) RF: 0 vitamin B complex Tablet 1 tab PO DAILY RF: 0 glucosamine-chondroitin [Osteo Bi-Flex] 250-200 mg Tablet 1 tab PO BID RF: 0 coenzyme Q10 [Co Q-10] 200 mg Capsule 200 mg PO DAILY RF: 0 [place]-3 350 mg-235 mg- 90 mg-597 mg Capsule,Delayed Release(Dr/Ec) 1 cap PO DAILY RF: 0 lorazepam 1 mg tablet 1 mg PO Q12H PRN (Reason: alcohol withdrawal) Qty: 10 RF: 0 Discharge Orders: Discharge Order (Routine); Ordered 02/09/20 Ordered By: Oscar Dasilva Admission Data Admit Date/Time: 02/05/20 10:09 Attending Provider: Oscar Dasilva Admit Provider: Gisella Thomas Primary Care Provider: Royer Henry III Other Providers: Zohaib Shane
== END 2020-02-09 16:49 | disposition home or self-care (01) ==
LOC: ED 07:35 → 2N 10:09 → SUATTDRO 10:09 → INTOOBSV 10:09 → 2N 11:07

== ENCOUNTER 2020-05-11 09:53 | Inpatient (IN) ==
[2020-05-11] MEDS ORDERED: SODIUM CHLORIDE 0.9% 1000ML 1,000 ML IV ONE (10:12)
[2020-05-11] MEDS ORDERED: LORazepam 1 MG/2 ML VIAL IV STA ×2 (10:33→13:38)
[2020-05-11] MEDS ORDERED: MULTI-VITAMIN INFUSION 10 ML, THIAMINE HCL 100 MG, FOLIC ACID 1 MG in SODIUM CHLORIDE 0... IV ONE (10:33)
[2020-05-11] MEDS ORDERED: THIAMINE HCL 100 MG in SYRINGE 9 ML IV STA (10:33)
[2020-05-11] MEDS ORDERED: PANTOprazole 80 MG in DEXTROSE 5% 100 ML IV ONE (10:35)
[2020-05-11] MEDS ORDERED: PANTOPRAZOLE BOLUS/DRIP 1 EA IV STA (10:35)
[2020-05-11] MEDS ORDERED: FAMOTIDINE 20MG/5ML IV PUSH IV STA (10:35)
[2020-05-11 10:51] LABS: Eosinophils # (auto) 0.01 K/uL (0-0.5); Eosinophils % (auto) 0.1 %; Hemoglobin 12.6 g/dL (14.0-18.0); Immature Granulocytes # (auto) 0.11 K/uL (0.00-0.02); Immature Granulocytes % (auto) 0.8 %; Lymphocytes % (auto) 3.4 %; Mean Corpuscular Hemoglobin 37.8 pg (25-34); Mean Corpuscular Volume 105.1 fL (80-100); Mean Platelet Volume 10.8 fL (7.4-10.4); Monocytes # (auto) 0.67 K/uL (0.11-0.59); Monocytes % (auto) 4.6 %; Neutrophils # (auto) 13.21 K/uL (1.4-6.5); Neutrophils % (auto) 91.1 %; Platelet Count 109 K/uL (130-400); RDW Coefficient of Variation 14.6 % (11.5-14.5); RDW Standard Deviation 56.1 fL (36.4-46.3); Red Blood Count 3.33 M/uL (4.7-6.1)
[2020-05-11 11:04] LABS: INR 1.5 (0.9-1.1); Partial Thromboplastin Ratio 1.2; Partial Thromboplastin Time 32.2 Seconds (21.0-31.0); Prothrombin Time 15.6 Seconds (9.0-12.0)
--- NOTE | 2020-05-11 11:12 | Emergency Department Note ---
Impression & Plan Alcohol abuse, Acute dyspnea, Acute hyponatremia, Nonspecific colitis, Pneumonia, Liver cirrhosis, Ventricular tachycardia, Sepsis, Jaundice ED Provider Note INFORMANT: Patient, ED PROVIDER(S): Mateo Nation MD CHIEF COMPLAINT: Shortness of breath PLAN: Disposition: Admitted Condition: Guarded MEDICAL DECISION MAKING: Patient presented with complaints of dyspnea and multiple other issues. He has been consuming an excessive amount of alcohol for many months. He was tachycardic. His blood pressure was borderline. He was jaundice and had a fluid wave with mild abdominal distention. He underwent a significant work-up. Treatment was initiated with IV normal saline, IV banana bag, additional IV thiamine, Pepcid IV, and a Protonix bolus and drip. The patient was also treated with Zosyn and vancomycin empirically for sepsis. Additional thiamine was also given. Patient received a total of 3 mg of IV Ativan due to tremors. He had a mild leukocytosis. His chemistry panel was significant for an acidosis as well as hyponatremia. Patient's liver functions were elevated as was his INR. His meld score was 11. The patient was reassessed. He was monitored. Cardiac monitoring did show a 5 beat run of V. tach. CT imaging of the chest reveals a pneumonitis/pneumonia pattern bilaterally. The patient also has varices noted on his abdominal CT. There is a nonspecific colitis present. His initial lactate was elevated. After fluid resuscitation he has improved but still has a mildly elevated lactate. Cover testing was performed. The patient will need to be admitted to the hospital. I discussed this with him and family. They were in agreement. I did consult with Dr. Matos of internal medicine. He promptly evaluated the patient Triage Nursing notes reviewed and agree them. Additional history obtained from the patient's . Prior medical records reviewed history of CAD. Vital Signs: reviewed and remarkable for tachycardia and borderline low blood pressure. Differential diagnosis: Toxicologic, infection, hypoglycemia, electrolyte abnormalities, cardiac sources, intracerebral event, neurologic, trauma, as well as other pathologies. Diagnostics interpreted by me: ECG: Twelve-lead ECG reveals a sinus tachycardia at 125 bpm. Inferior and anterolateral Q waves present. No ST elevation. No PVCs. Normal axis. Normal QRS. Cardiac Monitoring: Cardiac monitoring ordered by me: The patient was placed on continuous cardiac monitoring and observed. It revealed a sinus tachycardic rhythm at 122 beats per minute. 5 beat run of ventricular tachycardia noted.. Imaging studies: CT scan of the chest abdomen pelvis was performed as noted above. Chest x-ray shows some increased markings and a groundglass appearance concerning for pneumonitis. Consultation(s): Discussed CT findings with Dr. Abreu of radiology. Consulted with Dr. Matos of the [facility] service for admission. HPI: The patient is a 59 year old male who presents to the Emergency Room with complaints of dyspnea. This started few months ago and is worsening. The patient's states that he lost his job 5 months ago and has only been drinking alcohol every day. The patient admits to drinking a 30 pack of beer daily. He is not eating. He also notes black stools and has trouble holding his bowels. Feels like his abdomen is distended he has occasional nausea and vomiting. notes he has been jaundiced for over a week. Patient has not been taking any of his medications and has not seen his doctor recently. The patient has found no relieving factors. Current pain is rated as 5/10. Pt denies LOC, headache, fevers, chills, diaphoresis, visual changes, neck pain, chest pain, back pain, hematochezia, urinary symptoms, numbness, focal weakness, lymphadenopathy, or other complaints. ROS: See above HPI for pertinent positives & negatives. A total of 10 systems reviewed and were otherwise negative. PAST MEDICAL HISTORY:See Below alcohol abuse, coronary artery disease PAST SURGICAL HISTORY:See Below FAMILY HISTORY:See Below SOCIAL HISTORY:See Below . Positive EtOH HOME MEDICATIONS:See Below ALLERGIES:See Below VITALS:See Below PHYSICAL EXAMINATION: GENERAL: Awake, alert, mildly ill-appearing, in no distress HENT: Normocephalic, atraumatic. Oropharynx unremarkable. EYES: Normal conjunctiva. Sclera significantly-icteric. NECK: Inspection normal. Non-tender. Supple. No nuchal rigidity. FROM. No masses. RESPIRATORY: Clear to auscultation except for scattered rhonchi. No wheezes. No rales. Increased respiratory effort. CARDIAC: Normal rate. Normal rhythm. No murmurs. No rubs. Extremities warm and well perfused. Pulses equal. No JVD. GI: Soft, mildly-distended. Mild diffuse tenderness to palpation. No rebound or guarding. No masses. RECTAL: Deferred. MUSCULOSKELETAL: Atraumatic. Chest examination reveals no tenderness. The back is symmetrical on inspection without obvious abnormality. There is no CVA tenderness to palpation. No joint edema. LOWER EXTREMITIES: Calves are equal size bilaterally and non-tender. 1+ edema. No discoloration. NEURO: Normal sensorium. No sensory or motor deficits noted. SKIN: No rash but significant jaundice noted. ED COURSE: Critical Care: I have personally spent greater than 45 minutes of critical care time in the direct management of this patient. This includes bedside care, interpretation of diagnostic studies, and testing, discussion with consultants, patient, and family members, and other required patient management activities. These minutes are in excess of all separately billable procedures. Mateo Nation MD Past Med/Surg History Medical History Alcohol dependence Alcohol withdrawal C. difficile diarrhea CAD (coronary artery disease) "03/29/2017 - anterior STEMI, s/p JEFFREY to LAD" Hepatitis C History of Clostridioides difficile colitis History of GI bleed "secondary to esophageal ulceration on EGD 11/29/2013" HTN (hypertension) Hyperlipidemia LDL goal <70 Ischemic cardiomyopathy "EF 30-35%" Obesity Renal artery stenosis "questionable" Surgical History H/O esophagogastroduodenoscopy "11/29/2013- Large lower esophageal ulceration. No bleeding. Portal hypertensive gastropathy. Erythematous duodenopathy. Normal 2nd part of the d uodenum." Social History Smoking Status: Current every day smoker Tobacco Type: Cigarettes Cigarettes Per Day: 20; Second Hand Exposure: No; Do You Dip or Chew Tobacco: No; Tobacco Cessation Education Requested by Patient: No Hx Alcohol Use: Yes Alcohol type: beer Alcohol Intake Frequency Comment: 30 beers a day for the last 6 weeks Hx Substance Use: No Preferred Language: Macedonian Communication Ability: Effective Automatic Car Wash Attendant Required: No Beliefs That Will Affect Care: None marital status: Current Living Situation: Spouse Other Information That Helps Us Care for You: No Feels Safe at Home: Yes Safety Concerns: Feels Safe At This Time Allergies Allergies Allergy/AdvReac Type Severity Reaction Status Date / Time No Known Allergies Allergy Unverified 02/05/20 08:04 Home Meds Home Medications Medication Instructions Recorded Confirmed atorvastatin 40 mg tablet 40 mg PO DAILY 04/23/19 02/05/20 folic acid 400 mcg tablet 0.4 mg PO DAILY tab 04/23/19 02/05/20 lisinopril 40 mg tablet 40 mg PO DAILY #1 tab 04/23/19 02/05/20 [place]-3 1 cap PO DAILY 10/22/19 02/05/20 ascorbic acid (vitamin C) [Vitamin 1,000 mg PO DAILY 10/22/19 02/05/20 C] aspirin [Aspir-Low] 81 mg PO DAILY 10/22/19 02/05/20 coenzyme Q10 [Co Q-10] 200 mg PO DAILY 10/22/19 02/05/20 glucosamine-chondroitin [Osteo 1 tab PO BID 10/22/19 02/05/20 Bi-Flex] milk thistle 1,000 mg PO BID 10/22/19 02/05/20 nitroglycerin [Nitrostat] 0.4 mg SUBLINGUAL UD PRN 10/22/19 02/05/20 vitamin B complex 1 tab PO DAILY 10/22/19 02/05/20 Previous Rx's Medication Instructions Recorded carvedilol 25 mg tablet 25 mg PO BID #60 tab 05/17/19 meloxicam 15 mg tablet 15 mg PO DAILY #30 tab 11/01/19 lorazepam 1 mg PO Q12H PRN #10 tab 11/22/19 acetaminophen 300 mg-codeine 30 mg 1 tab PO TID PRN #90 tab 02/04/20 tablet clopidogrel 75 mg tablet 75 mg PO DAILY #30 tab 02/04/20 Results & Data (ED) Vital Signs Vital Signs - 24 hr 05/11/20 10:03 05/11/20 10:11 05/11/20 10:14 Temperature 37.2 C Temperature Source Oral Pulse Rate 133 H 128 H 128 H Pulse Rate from SpO2 Sensor 129 H 128 H Respiratory Rate 24 20 29 H Blood Pressure 110/71 122/84 Blood Pressure Mean 84 92 Pulse Oximetry 98 98 98 Oxygen Delivery Method Room Air Sepsis Recent Fever Within 48 Hours No Sepsis New/Unexplained Change in Mental Status No Sepsis Action Taken by Nursing No Action Required 05/11/20 10:15 05/11/20 10:18 05/11/20 10:30 Temperature Temperature Source Pulse Rate 128 H 121 H Pulse Rate from SpO2 Sensor 129 H Respiratory Rate 28 H 20 Blood Pressure 96/73 L Blood Pressure Mean 81 Pulse Oximetry 97 93 Oxygen Delivery Method Room Air Sepsis Recent Fever Within 48 Hours Sepsis New/Unexplained Change in Mental Status Sepsis Action Taken by Nursing 05/11/20 10:35 05/11/20 10:51 05/11/20 11:00 Temperature Temperature Source Pulse Rate 119 H 117 H Pulse Rate from SpO2 Sensor 237 H 117 H Respiratory Rate 31 H 26 H Blood Pressure 125/93 139/95 Blood Pressure Mean 98 105 Pulse Oximetry 98 97 Oxygen Delivery Method Room Air Sepsis Recent Fever Within 48 Hours Sepsis New/Unexplained Change in Mental Status Sepsis Action Taken by Nursing 05/11/20 11:01 05/11/20 11:15 05/11/20 11:30 Temperature Temperature Source Pulse Rate 121 H 117 H 125 H Pulse Rate from SpO2 Sensor 119 H 119 H 127 H Respiratory Rate 23 30 H 21 Blood Pressure 144/101 H 136/89 Blood Pressure Mean 116 113 Pulse Oximetry 98 99 100 Oxygen Delivery Method Room Air Sepsis Recent Fever Within 48 Hours Sepsis New/Unexplained Change in Mental Status Sepsis Action Taken by Nursing 05/11/20 11:31 05/11/20 12:00 05/11/20 12:30 Temperature Temperature Source Pulse Rate 125 H 127 H 118 H Pulse Rate from SpO2 Sensor 125 H Respiratory Rate 16 23 29 H Blood Pressure Blood Pressure Mean Pulse Oximetry 98 Oxygen Delivery Method Sepsis Recent Fever Within 48 Hours Sepsis New/Unexplained Change in Mental Status Sepsis Action Taken by Nursing 05/11/20 12:52 05/11/20 13:00 05/11/20 13:01 Temperature Temperature Source Pulse Rate 133 H 129 H 129 H Pulse Rate from SpO2 Sensor 215 H 131 H Respiratory Rate 25 H 16 Blood Pressure 160/89 H 129/93 Blood Pressure Mean 106 121 Pulse Oximetry 98 Oxygen Delivery Method Room Air Sepsis Recent Fever Within 48 Hours Sepsis New/Unexplained Change in Mental Status Sepsis Action Taken by Nursing 05/11/20 14:00 05/11/20 14:01 05/11/20 14:30 Temperature Temperature Source Pulse Rate 127 H 127 H 127 H Pulse Rate from SpO2 Sensor 126 H 128 H 127 H Respiratory Rate 23 15 17 Blood Pressure 126/84 120/99 Blood Pressure Mean 97 104 Pulse Oximetry 96 98 97 Oxygen Delivery Method Sepsis Recent Fever Within 48 Hours Sepsis New/Unexplained Change in Mental Status Sepsis Action Taken by Nursing 05/11/20 14:31 05/11/20 15:00 05/11/20 15:01 Temperature Temperature Source Pulse Rate 127 H 127 H 128 H Pulse Rate from SpO2 Sensor 126 H 131 H 128 H Respiratory Rate 21 19 29 H Blood Pressure 134/101 H Blood Pressure Mean 121 Pulse Oximetry 98 98 98 Oxygen Delivery Method Sepsis Recent Fever Within 48 Hours Sepsis New/Unexplained Change in Mental Status Sepsis Action Taken by Nursing Laboratory Data Result diagrams: 05/11/20 10:35 05/11/20 13:08 Lab Results 05/11/20 05/11/20 05/11/20 Range/Units 10:35 10:35 10:35 WBC 14.50 H (4.8-10.8) K/uL RBC 3.33 L (4.7-6.1) M/uL Hgb 12.6 L (14.0-18.0) g/dL Hct 35.0 L (42-52) % MCV 105.1 H (80-100) fL MCH 37.8 H (25-34) pg MCHC 36.0 (32-36) g/dL RDW Std Deviation 56.1 H (36.4-46.3) fL RDW Coeff of [place] 14.6 H (11.5-14.5) % Plt Count 109 L (130-400) K/uL MPV 10.8 H (7.4-10.4) fL Immature Gran % (Auto) 0.8 % Neut % (Auto) 91.1 % Lymph % (Auto) 3.4 % [place] % (Auto) 4.6 % Eos % (Auto) 0.1 % Baso % (Auto) 0.0 % Neut # (Auto) 13.21 H (1.4-6.5) K/uL Lymph # (Auto) 0.50 L (1.2-3.4) K/uL [place] # (Auto) 0.67 H (0.11-0.59) K/uL Eos # (Auto) 0.01 (0-0.5) K/uL Baso # (Auto) 0.00 (0-0.2) K/uL Immature Gran # (Auto) 0.11 H (0.00-0.02) K/uL PT 15.6 H (9.0-12.0) Seconds INR 1.5 H (0.9-1.1) APTT 32.2 H (21.0-31.0) Seconds PTT Ratio 1.2 ABG pH (7.35-7.45) ABG pCO2 (35-46) mmHg ABG pO2 (80-95) mmHg ABG HCO3 (19-24) mmol/L ABG O2 Saturation (90-95) % ABG Base Excess (-9-1.8) mEq/L Oliver Test (Pos) Barometric Pressure mm/Hg Oxygen Given Sodium 117 L* (136-145) mmol/L Potassium 3.6 (3.5-5.1) mmol/L Chloride 82 L (98-107) mmol/L Carbon Dioxide 16 L (21-32) mmol/L Anion Gap 19.0 H (3-11) BUN 5 L (7-18) mg/dl Creatinine 0.71 (0.6-1.4) mg/dl Est Cr Clr Drug Dosing Not Reportable Est GFR ( Amer) 120.7 Est GFR (Non-Af Amer) 104.2 BUN/Creatinine Ratio 7.3 L (10-20) Glucose 77 (70-99) mg/dl Lactate (0.4-2.0) mmol/L Calcium 7.9 L (8.5-10.1) mg/dl Magnesium 1.7 L (1.8-2.4) mg/dl Total Bilirubin 13.7 H (0.2-1) mg/dl AST 230 H (15-37) U/L ALT 95 H (12-78) U/L Alkaline Phosphatase 298 H (45-117) U/L Troponin I 0.025 (0-0.045) ng/ml NT-Pro-B Natriuret Pep 693 (0-900) pg/ml Total Protein 6.5 (6.4-8.2) gm/dl Albumin 1.9 L (3.4-5.0) gm/dl Globulin 4.6 H (2.5-4.0) gm/dl Albumin/Globulin Ratio 0.4 L (0.9-2) Procalcitonin (0-0.5) ng/ml Urine Color Urine Appearance (Clear) Urine pH (4.5-7.5) Ur Specific [place] (1.000-1.030) Urine Protein (Negative) Urine Glucose (UA) (Negative) Urine Ketones (Negative) Urine Blood (Negative) Urine Nitrite (Negative) Urine Bilirubin (Negative) Urine Urobilinogen (Negative) Ur Leukocyte Esterase (Negative) Urine WBC (Auto) (0-5) /hpf Urine RBC (Auto) (0-4) /hpf U Hyaline Cast (Auto) (0-5) /lpf U Epithel Cells (Auto) (0-5) /lpf Urine Bacteria (Auto) (Negative) COVID-19 Eval Order COVID-19 PCR (Negative) Blood Type Antibody Screen 05/11/20 05/11/20 05/11/20 Range/Units 10:35 11:13 11:13 WBC (4.8-10.8) K/uL RBC (4.7-6.1) M/uL Hgb (14.0-18.0) g/dL Hct (42-52) % MCV (80-100) fL MCH (25-34) pg MCHC (32-36) g/dL RDW Std Deviation (36.4-46.3) fL RDW Coeff of [place] (11.5-14.5) % Plt Count (130-400) K/uL MPV (7.4-10.4) fL Immature Gran % (Auto) % Neut % (Auto) % Lymph % (Auto) % [place] % (Auto) % Eos % (Auto) % Baso % (Auto) % Neut # (Auto) (1.4-6.5) K/uL Lymph # (Auto) (1.2-3.4) K/uL [place] # (Auto) (0.11-0.59) K/uL Eos # (Auto) (0-0.5) K/uL Baso # (Auto) (0-0.2) K/uL Immature Gran # (Auto) (0.00-0.02) K/uL PT (9.0-12.0) Seconds INR (0.9-1.1) APTT (21.0-31.0) Seconds PTT Ratio ABG pH (7.35-7.45) ABG pCO2 (35-46) mmHg ABG pO2 (80-95) mmHg ABG HCO3 (19-24) mmol/L ABG O2 Saturation (90-95) % ABG Base Excess (-9-1.8) mEq/L Oliver Test (Pos) Barometric Pressure mm/Hg Oxygen Given Sodium (136-145) mmol/L Potassium (3.5-5.1) mmol/L Chloride (98-107) mmol/L Carbon Dioxide (21-32) mmol/L Anion Gap (3-11) BUN (7-18) mg/dl Creatinine (0.6-1.4) mg/dl Est Cr Clr Drug Dosing Est GFR ( Amer) Est GFR (Non-Af Amer) BUN/Creatinine Ratio (10-20) Glucose (70-99) mg/dl Lactate 3.7 H* (0.4-2.0) mmol/L Calcium (8.5-10.1) mg/dl Magnesium (1.8-2.4) mg/dl Total Bilirubin (0.2-1) mg/dl AST (15-37) U/L ALT (12-78) U/L Alkaline Phosphatase (45-117) U/L Troponin I (0-0.045) ng/ml NT-Pro-B Natriuret Pep (0-900) pg/ml Total Protein (6.4-8.2) gm/dl Albumin (3.4-5.0) gm/dl Globulin (2.5-4.0) gm/dl Albumin/Globulin Ratio (0.9-2) Procalcitonin 1.07 H (0-0.5) ng/ml Urine Color Urine Appearance (Clear) Urine pH (4.5-7.5) Ur Specific [place] (1.000-1.030) Urine Protein (Negative) Urine Glucose (UA) (Negative) Urine Ketones (Negative) Urine Blood (Negative) Urine Nitrite (Negative) Urine Bilirubin (Negative) Urine Urobilinogen (Negative) Ur Leukocyte Esterase (Negative) Urine WBC (Auto) (0-5) /hpf Urine RBC (Auto) (0-4) /hpf U Hyaline Cast (Auto) (0-5) /lpf U Epithel Cells (Auto) (0-5) /lpf Urine Bacteria (Auto) (Negative) COVID-19 Eval Order COVID-19 PCR (Negative) Blood Type A Positive Antibody Screen NEGATIVE 05/11/20 05/11/20 05/11/20 Range/Units 12:05 13:08 13:08 WBC (4.8-10.8) K/uL RBC (4.7-6.1) M/uL Hgb (14.0-18.0) g/dL Hct (42-52) % MCV (80-100) fL MCH (25-34) pg MCHC (32-36) g/dL RDW Std Deviation (36.4-46.3) fL RDW Coeff of [place] (11.5-14.5) % Plt Count (130-400) K/uL MPV (7.4-10.4) fL Immature Gran % (Auto) % Neut % (Auto) % Lymph % (Auto) % [place] % (Auto) % Eos % (Auto) % Baso % (Auto) % Neut # (Auto) (1.4-6.5) K/uL Lymph # (Auto) (1.2-3.4) K/uL [place] # (Auto) (0.11-0.59) K/uL Eos # (Auto) (0-0.5) K/uL Baso # (Auto) (0-0.2) K/uL Immature Gran # (Auto) (0.00-0.02) K/uL PT (9.0-12.0) Seconds INR (0.9-1.1) APTT (21.0-31.0) Seconds PTT Ratio ABG pH (7.35-7.45) ABG pCO2 (35-46) mmHg ABG pO2 (80-95) mmHg ABG HCO3 (19-24) mmol/L ABG O2 Saturation (90-95) % ABG Base Excess (-9-1.8) mEq/L Oliver Test (Pos) Barometric Pressure mm/Hg Oxygen Given Sodium 121 L (136-145) mmol/L Potassium 3.5 (3.5-5.1) mmol/L Chloride 90 L (98-107) mmol/L Carbon Dioxide 16 L (21-32) mmol/L Anion Gap 15.0 H (3-11) BUN 4 L (7-18) mg/dl Creatinine 0.52 L (0.6-1.4) mg/dl Est Cr Clr Drug Dosing 177.4 Est GFR ( Amer) 137.2 Est GFR (Non-Af Amer) 118.4 BUN/Creatinine Ratio 8.6 L (10-20) Glucose 85 (70-99) mg/dl Lactate 2.3 H* (0.4-2.0) mmol/L Calcium 6.8 L (8.5-10.1) mg/dl Magnesium (1.8-2.4) mg/dl Total Bilirubin (0.2-1) mg/dl AST (15-37) U/L ALT (12-78) U/L Alkaline Phosphatase (45-117) U/L Troponin I (0-0.045) ng/ml NT-Pro-B Natriuret Pep (0-900) pg/ml Total Protein (6.4-8.2) gm/dl Albumin (3.4-5.0) gm/dl Globulin (2.5-4.0) gm/dl Albumin/Globulin Ratio (0.9-2) Procalcitonin (0-0.5) ng/ml Urine Color Dark Yellow Urine Appearance Clear (Clear) Urine pH 6.5 (4.5-7.5) Ur Specific [place] 1.017 (1.000-1.030) Urine Protein Negative (Negative) Urine Glucose (UA) Negative (Negative) Urine Ketones 1+ H (Negative) Urine Blood Trace H (Negative) Urine Nitrite Negative (Negative) Urine Bilirubin 3+ H (Negative) Urine Urobilinogen Negative (Negative) Ur Leukocyte Esterase Negative (Negative) Urine WBC (Auto) 1-5 (0-5) /hpf Urine RBC (Auto) 5-10 H (0-4) /hpf U Hyaline Cast (Auto) 1-5 (0-5) /lpf U Epithel Cells (Auto) 5-10 H (0-5) /lpf Urine Bacteria (Auto) Negative (Negative) COVID-19 Eval Order COVID-19 PCR (Negative) Blood Type Antibody Screen 05/11/20 05/11/20 05/11/20 Range/Units 13:44 Unknown Unknown WBC (4.8-10.8) K/uL RBC (4.7-6.1) M/uL Hgb (14.0-18.0) g/dL Hct (42-52) % MCV (80-100) fL MCH (25-34) pg MCHC (32-36) g/dL RDW Std Deviation (36.4-46.3) fL RDW Coeff of [place] (11.5-14.5) % Plt Count (130-400) K/uL MPV (7.4-10.4) fL Immature Gran % (Auto) % Neut % (Auto) % Lymph % (Auto) % [place] % (Auto) % Eos % (Auto) % Baso % (Auto) % Neut # (Auto) (1.4-6.5) K/uL Lymph # (Auto) (1.2-3.4) K/uL [place] # (Auto) (0.11-0.59) K/uL Eos # (Auto) (0-0.5) K/uL Baso # (Auto) (0-0.2) K/uL Immature Gran # (Auto) (0.00-0.02) K/uL PT (9.0-12.0) Seconds INR (0.9-1.1) APTT (21.0-31.0) Seconds PTT Ratio ABG pH 7.42 (7.35-7.45) ABG pCO2 25 L (35-46) mmHg ABG pO2 110 H (80-95) mmHg ABG HCO3 16 L (19-24) mmol/L ABG O2 Saturation 98.2 H (90-95) % ABG Base Excess -7.1 (-9-1.8) mEq/L Oliver Test Pos (Pos) Barometric Pressure 733.0 mm/Hg Oxygen Given ROOM AIR Sodium (136-145) mmol/L Potassium (3.5-5.1) mmol/L Chloride (98-107) mmol/L Carbon Dioxide (21-32) mmol/L Anion Gap (3-11) BUN (7-18) mg/dl Creatinine (0.6-1.4) mg/dl Est Cr Clr Drug Dosing Est GFR ( Amer) Est GFR (Non-Af Amer) BUN/Creatinine Ratio (10-20) Glucose (70-99) mg/dl Lactate (0.4-2.0) mmol/L Calcium (8.5-10.1) mg/dl Magnesium (1.8-2.4) mg/dl Total Bilirubin (0.2-1) mg/dl AST (15-37) U/L ALT (12-78) U/L Alkaline Phosphatase (45-117) U/L Troponin I (0-0.045) ng/ml NT-Pro-B Natriuret Pep (0-900) pg/ml Total Protein (6.4-8.2) gm/dl Albumin (3.4-5.0) gm/dl Globulin (2.5-4.0) gm/dl Albumin/Globulin Ratio (0.9-2) Procalcitonin (0-0.5) ng/ml Urine Color Urine Appearance (Clear) Urine pH (4.5-7.5) Ur Specific [place] (1.000-1.030) Urine Protein (Negative) Urine Glucose (UA) (Negative) Urine Ketones (Negative) Urine Blood (Negative) Urine Nitrite (Negative) Urine Bilirubin (Negative) Urine Urobilinogen (Negative) Ur Leukocyte Esterase (Negative) Urine WBC (Auto) (0-5) /hpf Urine RBC (Auto) (0-4) /hpf U Hyaline Cast (Auto) (0-5) /lpf U Epithel Cells (Auto) (0-5) /lpf Urine Bacteria (Auto) (Negative) COVID-19 Eval Order Covid19 Done at [facility] COVID-19 PCR NEGATIVE (Negative) Blood Type Antibody Screen Administered Medications Pantoprazole Sodium 40 mg/ (Dextrose) 100 mls @ 20 mls/hr IV Q5H WESLY Stop: 06/10/20 10:50 Last Admin: 05/11/20 11:47 Dose: 8 mg/hr, 20 mls/hr Documented by: [id number] Magnesium Sulfate/Dextrose (Magnesium Sulfate / D5w) 1 gm in 100 mls @ 50 mls/hr IV ONE ONE Stop: 05/11/20 16:09 Last Admin: 05/11/20 14:25 Dose: 50 mls/hr Documented by: [id number] Azithromycin 500 mg/ Dextrose 255 mls @ 125 mls/hr IV NOW ONE Stop: 05/11/20 16:32 Last Admin: 05/11/20 15:07 Dose: 125 mls/hr Documented by: [id number] Discontinued Medications Calcium Gluconate (Calcium Gluconate 10% 10 Ml Vial) Confirm Administered Dose 1,000 mg IV .STK-MED ONE Stop: 05/11/20 14:15 Last Admin: 05/11/20 14:21 Dose: Not Given Documented by: [id number] Chlordiazepoxide HCl (Chlordiazepoxide Hcl 25 Mg Cap) 25 mg PO NOW ONE Stop: 05/11/20 13:07 Last Admin: 05/11/20 13:14 Dose: Not Given Documented by: [id number] Chlordiazepoxide HCl (Chlordiazepoxide Hcl 25 Mg Cap) Confirm Administered Dose 25 mg PO .STK-MED ONE Stop: 05/11/20 13:03 Last Admin: 05/11/20 13:13 Dose: 25 mg Documented by: [id number] Famotidine (Famotidine 20mg/5ml Iv Push) 20 mg IV ONE STA Stop: 05/11/20 10:36 Last Admin: 05/11/20 10:59 Dose: 20 mg Documented by: [id number] Sodium Chloride (Nss 1000ml) 1,000 mls @ 999 mls/hr IV .Q1H1M ONE Stop: 05/11/20 11:12 Last Infusion: 05/11/20 13:16 Dose: 0 mls/hr Documented by: [id number] Admin: 05/11/20 10:59 Dose: 999 mls/hr Documented by: [id number] Multivitamins 10 ml/ Thiamine HCl 100 mg/ Folic Acid 1 mg/Sodium Chloride 1,011.2 mls @ 1,011.2 mls/hr IV .Q1H ONE Stop: 05/11/20 11:32 Last Infusion: 05/11/20 13:16 Dose: 0 mls/hr Documented by: [id number] Admin: 05/11/20 11:47 Dose: 1,011.2 mls/hr Documented by: [id number] Thiamine HCl 100 mg/ Syringe 10 mls @ 2 mls/min IV NOW STA Stop: 05/11/20 10:37 Last Admin: 05/11/20 11:47 Dose: 2 mls/min Documented by: [id number] Lorazepam (Ativan) 1 mg in 2 mls @ 2 mls/min IV NOW STA Stop: 05/11/20 10:34 Last Admin: 05/11/20 10:59 Dose: 2 mls/min Documented by: [id number] Pantoprazole Sodium (Protonix Bolus/Drip) 0 mls @ 1 mls/hr IV ONE STA Stop: 05/11/20 10:36 Last Admin: 05/11/20 11:47 Dose: Not Given Documented by: [id number] Pantoprazole Sodium 80 mg/ (Dextrose) 120 mls @ 400 mls/hr IV NOW ONE Stop: 05/11/20 10:52 Last Infusion: 05/11/20 13:16 Dose: 0 mls/hr Documented by: [id number] Admin: 05/11/20 11:46 Dose: 400 mls/hr Documented by: [id number] Piperacillin Sod/Tazobactam Sod (Zosyn) 4.5 gm in 120 mls @ 240 mls/hr IV NOW ONE Stop: 05/11/20 11:45 Last Infusion: 05/11/20 13:16 Dose: 0 mls/hr Documented by: [id number] Admin: 05/11/20 12:24 Dose: 240 mls/hr Documented by: [id number] Vancomycin HCl 2,000 mg/ (Sodium Chloride) 540 mls @ 200 mls/hr IV NOW ONE Stop: 05/11/20 14:46 Last Admin: 05/11/20 13:13 Dose: 200 mls/hr Documented by: [id number] Lorazepam (Ativan) 2 mg in 4 mls @ 4 mls/min IV NOW STA Stop: 05/11/20 12:13 Last Admin: 05/11/20 12:24 Dose: 4 mls/min Documented by: [id number] Lorazepam (Ativan) 1 mg in 2 mls @ 2 mls/min IV NOW STA Stop: 05/11/20 13:39 Last Admin: 05/11/20 13:48 Dose: 2 mls/min Documented by: [id number] Calcium Gluconate 1,000 mg/ (Sodium Chloride) 60 mls @ 240 mls/hr IV NOW ONE Stop: 05/11/20 14:44 Last Admin: 05/11/20 14:21 Dose: 240 mls/hr Documented by: [id number] Potassium Chloride (K Matt / Wtr) 10 meq in 100 mls @ 100 mls/hr IV ONE ONE Stop: 05/11/20 15:11 Last Admin: 05/11/20 15:07 Dose: 100 mls/hr Documented by: [id number] Ioversol (Optiray 320 125ml) 120 ml IV ONCE ONE Stop: 05/11/20 11:39 Last Admin: 05/11/20 11:39 Dose: 120 ml Documented by: [id number] Discharge Plan Visit Data Chief Complaint: Shortness of Breath/Dyspnea Stated Complaint: SOB ED Provider: Mateo Nation Discharge Problem: Alcohol abuse, Acute dyspnea, Acute hyponatremia, Nonspecific colitis, Pneumonia, Liver cirrhosis, Ventricular tachycardia, Sepsis, Jaundice Discharge Instructions Interventions: ED Discharge Assessment Last Done: 05/11/20 15:29
[2020-05-11] MEDS ORDERED: PIPERACILLIN/TAZOBACTAM 4.5 GM/120 ML BAG IV ONE (11:16)
[2020-05-11] MEDS ORDERED: PIPERACILL/TAZOBAC CONSULT ACTIVE PRN ×2 (11:16→20:53)
[2020-05-11 11:17] LABS: Alanine Aminotransferase 95 U/L (12-78); Albumin Globulin Ratio 0.4 (0.9-2); Albumin Level 1.9 gm/dl (3.4-5.0); Alkaline Phosphatase 298 U/L (45-117); Aspartate Aminotransferase 230 U/L (15-37); BUN Creatinine Ratio 7.3 (10-20); Bilirubin,Total 13.7 mg/dl (0.2-1); Blood Urea Nitrogen 5 mg/dl (7-18); Calcium 7.9 mg/dl (8.5-10.1); Carbon Dioxide 16 mmol/L (21-32); Chloride 82 mmol/L (98-107); Est GFR (African American) 120.7; Est GFR (Non-African American) 104.2; Globulin 4.6 gm/dl (2.5-4.0); Glucose 77 mg/dl (70-99); Magnesium 1.7 mg/dl (1.8-2.4); NT Pro B Type Natriuretic Pept 693 pg/ml (0-900); Potassium 3.6 mmol/L (3.5-5.1); Sodium 117 mmol/L (136-145); Total Protein 6.5 gm/dl (6.4-8.2); Troponin I 0.025 ng/ml (0-0.045)
[2020-05-11] MEDS ORDERED: OPTIRAY 320 125ml IV ONE (11:38)
[2020-05-11] MEDS: PANTOprazole 40 MG in DEXTROSE 5% 100 ML IV SCH ×2 (11:47→17:30)
--- NOTE | 2020-05-11 11:57 | CT Scan Report ---
CT ANGIOGRAPHY OF THE CHEST, PULMONARY EMBOLUS PROTOCOL CLINICAL HISTORY: dyspnea COMPARISON STUDY: Chest CT November 27, 2013. Chest radiograph January 24, 2018. TECHNIQUE: Following IV administration of 120 mL of Optiray-320, helical axial images of the chest we re obtained utilizing the pulmonary embolus protocol. Maximal intensity projections and sagittal and coronal reformats were viewed on an independent 3D workstation. IV contrast was administered withou t complication. Automated exposure control was utilized for the study. A dose lowering technique wa s utilized adhering to the principles of ALARA. CT DOSE: 1815.22 mGy.cm FINDINGS: No pulmonary emboli are identified although the segmental and subsegmental pulmonary arter ies are suboptimally assessed due to respiratory motion. Mild cardiomegaly is noted. There is moderat e coronary artery calcification. No thoracic aortic dissection is noted. No enlarged thoracic lymph n odes are present. The central airways are patent. There is no pneumothorax or pleural effusion. Moder ate multifocal groundglass opacities within the lungs are noted. These are more pronounced within the left lung. There is mild distal esophageal wall thickening. No suspicious osseous lesions are noted within the bony thorax. The abdomen and pelvis will be reported separately. Fatty infiltration of the liver with cirrhosis is noted. There is mild elevation of the left hemidiaphragm. IMPRESSION: 1. No pulmonary emboli identified although segmental and subsegmental pulmonary arteries suboptimally assessed due to respiratory motion. 2. Moderate multifocal groundglass opacities within the lungs, greater within the left lung. The find ings favor an infectious process such as viral pneumonia. 3. Mild cardiomegaly. Moderate coronary artery calcification. 4. Cirrhosis. Fatty infiltration of the liver. The abdomen and pelvis will be reported separately. ACT 112: Negative or not required by law. Electronically signed by: Corey Abreu M.D. 05/11/2020 11:55 AM
[2020-05-11] MEDS ORDERED: VANCOMYCIN CONSULT ACTIVE PRN (12:05)
[2020-05-11] MEDS ORDERED: VANCOMYCIN HCL 2,000 MG in SODIUM CHLORIDE 0.9% 500 ML IV ONE (12:05)
--- NOTE | 2020-05-11 12:05 | CT Scan Report ---
CT OF THE ABDOMEN AND PELVIS WITH CONTRAST CLINICAL HISTORY: Abdominal distention. Jaundice. COMPARISON STUDY: CT of the abdomen and pelvis February 17, 2018. TECHNIQUE: Following IV administration of 120 mL of Optiray-320, axial images of the abdomen and pelv is were obtained from the lung bases to the proximal femurs. Images were reviewed in the axial, sagit fili, and coronal planes. IV contrast was administered without complication. Automated exposure contr ol was utilized for the study. A dose lowering technique was utilized adhering to the principles of ALARA. FINDINGS: Please note that the chest CT will be reported separately. No pneumatosis, free air or port al venous gas is present. There is marked fatty infiltration of the liver. There is slight nodularity of the liver surface. The findings suggest cirrhosis. Recanalized paraumbilical vein is noted. Addit ional small abdominal collaterals are noted. There is trace ascites. No hepatic lesions are identifie d although sensitivity for detection of hypervascular lesions is diminished on this exam. There is pr ominent mucosal enhancement of the gallbladder. The gallbladder is not distended. The size of the spl een is normal. The adrenal glands, kidneys and pancreas are unremarkable. Exam is mildly compromised by motion artifact. There is mild diffuse colonic wall thickening, most evident involving the ascendi ng colon and splenic flexure. The appendix is normal. There is no abscess. A small subchondral scler otic focus within the left femoral head could be due to osteoarthritis or represent avascular necrosi s. IMPRESSION: 1. Marked fatty infiltration of liver. Suspected cirrhosis with manifestations of portal hypertension including varices formation and trace ascites. 2. Diffuse colonic wall thickening, most evident involving the ascending colon and splenic flexure. T his could be related to portal hypertension or represent a nonspecific colitis. No abscess or free ai r. 3. No bowel obstruction. ACT 112: Negative or not required by law. Electronically signed by: Corey Abreu M.D. 05/11/2020 12:03 PM
--- NOTE | 2020-05-11 12:07 | XRay Report ---
XR chest 1V portable CLINICAL HISTORY: Dyspnea COMPARISON STUDY: Chest radiograph January 2018. Chest CT performed earlier today. FINDINGS: Lung volumes are diminished. There is no pneumothorax or pleural effusion. Note is made of mild cardiomegaly. There is interstitial thickening and bilateral airspace opacities. IMPRESSION: Interstitial thickening and bilateral groundglass opacities within the lungs which are b nick depicted on chest CT. The findings favor an infectious process such as viral pneumonia. Pulmona ry edema could appear similar but is considered less likely. ACT 112: Negative or not required by law. Electronically signed by: Corey Abreu M.D. 05/11/2020 12:06 PM
[2020-05-11] MEDS ORDERED: LORazepam 2 MG/4 ML VIAL IV STA (12:12)
--- NOTE | 2020-05-11 12:39 | History & Physical Report ---
Date of Service May 11, 2020 Assessment & Plan (1) Acute metabolic encephalopathy: Suspect secondary to alcohol withdrawal, alternatively due to lorazepam use. Thiamine 500mg IV TID to prevent Wernicke's encephalopathy. Ammonia with next labs - although non suspected to be cause given non-specific colitis noted on CT. Hyponatremia possibly also contributing (management as below). (2) Acute alcoholic hepatitis: MELD score 29, 19.6% 3 month mortality. Maddrey discriminant function 30 - therefore no steroids recommended at this time. Dee alcoholic hepatitis score 7 - (scores < 9, better 28 and 84 day survival). Monitor LFTs and scores for progression and need for prednisolone. (3) Liver cirrhosis: No prior biopsy but high likelihood given varices seen on imaging and both hepatitis C and alcohol use as potential causes. Will need outpatient GI follow up. (4) Pneumonia: Vancomycin, Zosyn, azithromycin given in ER. Procalcitonin and WBC elevated therefore will continue broad-spectrum antibiotics especially covering aspiration given high risk events with alcohol use. MRSA nasal swab - if negative can discontinue vancomycin as despite alcohol history CT appearance more of pneumonitis/viral pneumonia than MRSA. (5) Alcohol withdrawal: Ativan 2 to 3 mg IV given in ER Previously placed on gabapentin protocol with Ativan PRN with good effect. Therefore will prescribe the same again unless needing frequent doses of Ativan can add WESLY chlordiazepoxide. (6) Alcohol abuse: Consult caser up to assist with alcohol rehabilitation once patient is through withdrawal (7) Acute hyponatremia: Severe with sodium 117. Suspected secondary to beer potomania and should resolve with alcohol cessation. NSS 1 L bolus given in ER - will defer any further NSS pending serial sodium levels. Recheck BMP now to check rising sodium on track to rise 6 meq in 24 hours (max 8 meq). (8) Jaundice: Bilirubin 13.7 secondary to presumed alcoholic hepatitis. Repeat LFTs in a.m. (9) Tachycardia: Suspected secondary to alcohol withdrawal. CTA negative for PE. No further IV fluids pending repeat sodium. (10) Hepatitis C: Chronic active. Follow-up with gastroenterology. No need for acute viral load. (11) Hypertension: Hypotensive on admission likely secondary to alcohol withdrawal. He is not taking his antihypertensives at home. We will continue to monitor blood pressure throughout the day to consider starting carvedilol as blood pressure allows. Hold lisinopril 40 mg p.o. daily (12) Severe protein-calorie malnutrition: Consult dietary once less encephalopathic and can eat and drink. (13) Nonspecific colitis: Suspect related to alcohol and opiate use/withdrawal. Concern for possible melena from history. Will continue on IV pantoprazole drip pending repeat H&H. Collect stool for FOB and stool culture. If watery will repeat his C. difficile however he appears to be a carrier of this and no indication unless his diarrhea is watery. 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 Although I am unclear of his indication for dual antiplatelet therapy. Platelet count 109. Hold statin due to elevated LFTs Carvedilol as above (16) Ischemic cardiomyopathy: Appears to be resolved. LVEF 55 to 60% in 2018. Previously noted in electronic health record to be 30 to 35% therefore suspect it is resolved from this. (17) Tobacco use disorder: Once less encephalopathic will assess need of nicotine replacement products. (18) Trochanteric bursitis of left hip: Notable history of this requiring injection on last admission. Reassess once less encephalopathic. (19) DVT prophylaxis: Avoid SCDs given minimal benefit and likely to make encephalopathy worse. Chemical prophylaxis deferred pending hemodynamic and hemoglobin stability. Admission and Anticipated Discharge Date Admission Date: 05/10/2020 History of Present Illness Chief Complaint: Shortness of breath Primary Care Provider: Royer Henry MD Lobo Pinzon is a 59 year old male who presents to the ER with shortness of breath. The patient was unable to give me any history. His mother was at bedside and tells me he has been short of breath with chills starting last night and his just could not cope with his alcohol drinking anymore. He has been drinking 30 beers a day for the last 6 months. Most recently discharged from our service in January after alcohol withdrawal at that time. In addition he was admitted in November for a similar symptoms. Discussed care with his Tatiana over the phone. She confirms he is similar to his previous alcohol withdrawal presentations. However she does note he appears to be a low worse on this occasion. He lost his job 5 months ago and is drinking fairly beers a day. He is not eating. Reports having black stools and bowel incontinence. He has not been taking any of his medications recently. No nausea or vomiting. No watery diarrhea. Allergies Allergy/AdvReac Type Severity Reaction Status Date / Time No Known Allergies Allergy Unverified 02/05/20 08:04 Home Medications Home Medications Medication Instructions Recorded Confirmed Type atorvastatin 40 mg tablet 40 mg PO DAILY 04/23/19 02/05/20 History folic acid 400 mcg tablet 0.4 mg PO DAILY tab 04/23/19 02/05/20 History lisinopril 40 mg tablet 40 mg PO DAILY #1 tab 04/23/19 02/05/20 History carvedilol 25 mg tablet 25 mg PO BID #60 tab 05/17/19 02/05/20 Rx Gum Spring-3 1 cap PO DAILY 10/22/19 02/05/20 History ascorbic acid (vitamin C) [Vitamin 1,000 mg PO DAILY 10/22/19 02/05/20 History C] aspirin [Aspir-Low] 81 mg PO DAILY 10/22/19 02/05/20 History coenzyme Q10 [Co Q-10] 200 mg PO DAILY 10/22/19 02/05/20 History glucosamine-chondroitin [Osteo 1 tab PO BID 10/22/19 02/05/20 History Bi-Flex] milk thistle 1,000 mg PO BID 10/22/19 02/05/20 History nitroglycerin [Nitrostat] 0.4 mg SUBLINGUAL UD PRN 10/22/19 02/05/20 History vitamin B complex 1 tab PO DAILY 10/22/19 02/05/20 History meloxicam 15 mg tablet 15 mg PO DAILY #30 tab 11/01/19 02/05/20 Rx lorazepam 1 mg PO Q12H PRN #10 tab 11/22/19 02/05/20 Rx acetaminophen 300 mg-codeine 30 mg 1 tab PO TID PRN #90 tab 02/04/20 02/05/20 Rx tablet clopidogrel 75 mg tablet 75 mg PO DAILY #30 tab 02/04/20 02/05/20 Rx Past Med/Surg History Medical History Alcohol dependence Alcohol withdrawal C. difficile diarrhea CAD (coronary artery disease) "03/29/2017 - anterior STEMI, s/p JEFFREY to LAD" Hepatitis C History of Clostridioides difficile colitis History of GI bleed "secondary to esophageal ulceration on EGD 11/29/2013" HTN (hypertension) Hyperlipidemia LDL goal <70 Ischemic cardiomyopathy "EF 30-35%" Obesity Renal artery stenosis "questionable" Surgical History H/O esophagogastroduodenoscopy "11/29/2013- Large lower esophageal ulceration. No bleeding. Portal hypertensive gastropathy. Erythematous duodenopathy. Normal 2nd part of the duodenum." Social History Smoking Status: Current every day smoker Tobacco Type: Cigarettes Cigarettes Per Day: 20; Second Hand Exposure: No; Do You Dip or Chew Tobacco: No; Tobacco Cessation Education Requested by Patient: No Hx Alcohol Use: Yes Alcohol type: beer Alcohol Intake Frequency Comment: 30 beers a day for the last 6 weeks Hx Substance Use: No Preferred Language: Comoran Communication Ability: Effective Manager Of Human Resources Required: No Beliefs That Will Affect Care: None marital status: Current Living Situation: Spouse Other Information That Helps Us Care for You: No Feels Safe at Home: Yes Safety Concerns: Feels Safe At This Time Review of Systems Review of Systems: Unobtainable due to cognitive status (Denied any pain) Physical Exam Physical Exam: Patient became increasingly more delirious during examination. At the end of the examination he was talking in complete sentences but did not make any sense. He denies any hallucinations. He was given additional 1 mg IV Ativan. Constitutional: + acute distress (Appears delirious); + not well nourished Eyes: PERRL and EOM intact bilaterally (Without diplopia); sclerae not anicteric (Jaundiced) and no nystagmus ENMT: Mouth: + dry oral mucous membranes Neck: normal visual inspection and trachea midline; no tracheal deviation Respiratory: normal respiratory effort, lungs clear to auscultation Cardiovascular: Rate/Rhythm: regular rhythm and + tachycardic Heart Sounds: no murmur Vessels: no JVD Extremities: normal capillary refill and + pedal edema (2+ edema to lower abdomen); no calf tenderness Gastrointestinal (Abdomen): Inspection/Auscultation: + abdomen distended and + hypoactive bowel sounds Percussion/Palpation: abdomen soft; abdomen nontender, no guarding, abdomen not rigid, no hepatomegaly and no splenomegaly Musculoskeletal: Head/Neck/Chest: normocephalic and head atraumatic Skin: + turgor decreased, + jaundice and + dry skin Spider angiomas present Neurologic: moves all extremities, awake and + confused; no focal motor deficits (Grossly normal) Motor/Sensory: + tremor and + asterixis Cranial Nerves: EOM intact bilaterally (No diplopia although limited exam), normal facial strength, able to rotate head bilaterally, able to elevate shoulders bilaterally, no nystagmus and symmetric palate elevation Psychiatric: Orientation: alert; + not oriented x 3 Apperance: + disheveled Eye Contact: + fair eye contact Motor Behavior: + psychomotor agitation and + tremor Speech: + pressured speech Affect: + anxious affect Thought Process: + tangential thought process and + flight of ideas Genitourinary: no CVA tenderness Results & Data Results & Data ([facility]) Vital Signs (Past 12 Hours) Vital Signs Temp Pulse Resp BP Pulse Ox 05/11/20 10:18 93 05/11/20 10:03 37.2 C 133 H 24 110/71 98 Diagnostic Findings XR chest 1V portable IMPRESSION: Interstitial thickening and bilateral groundglass opacities within the lungs which are better depicted on chest CT. The findings favor an infectious process such as viral pneumonia. Pulmonary edema could appear similar but is considered less likely. CT ANGIOGRAPHY OF THE CHEST, PULMONARY EMBOLUS PROTOCOL IMPRESSION: 1. No pulmonary emboli identified although segmental and subsegmental pulmonary arteries suboptimally assessed due to respiratory motion. 2. Moderate multifocal groundglass opacities within the lungs, greater within the left lung. The findings favor an infectious process such as viral pneumonia. 3. Mild cardiomegaly. Moderate coronary artery calcification. 4. Cirrhosis. Fatty infiltration of the liver. The abdomen and pelvis will be reported separately. CT OF THE ABDOMEN AND PELVIS WITH CONTRAST IMPRESSION: 1. Marked fatty infiltration of liver. Suspected cirrhosis with manifestations of portal hypertension including varices formation and trace ascites. 2. Diffuse colonic wall thickening, most evident involving the ascending colon and splenic flexure. This could be related to portal hypertension or represent a nonspecific colitis. No abscess or free air. 3. No bowel obstruction. ECG Indication: tachycardia Rate (beats per minute): 125 Rhythm: sinus tachycardia Findings: no acute ischemic change Comparison ECG Date: from (November 20, 2019) Change: no significant change Code Status & VTE Plan Code Status Full VTE Prophylaxis Plan VTE Prophylaxis will be ordered: No Reason for no VTE drug order: Treatment not indicated Reason for no VTE mechanical prophylaxis: Contraindicated Critical Care Time Critical Care Time: Yes Total Critical Care Time: 25 Replacement of electrolytes with nonsustained VT and severe hyponatremia, alcohol withdrawal management at bedside PG Care Time/CCT Total # of Minutes Spent Total Time Spent with Patient: Total time spent is greater than 50% in coordination of care (as documented) at patient's floor/unit and/or counseling patient: Critical Care Time: Yes Total Critical Care Time: 25 Coding Level of Care Code 04166 Initial Inpt Care Lvl 3 Diagnoses Acute metabolic encephalopathy G93.41 Acute alcoholic hepatitis K70.10 Liver cirrhosis K74.60 Pneumonia J18.9 Alcohol withdrawal F10.239 Alcohol abuse F10.10 Acute hyponatremia E87.1 Jaundice R17 Tachycardia R00.0 Hepatitis C B18.2 Hepatic coma status: without hepatic coma Viral hepatitis chronicity: chronic Hypertension I10 Hypertension type: unspecified Severe protein-calorie malnutrition E43 Nonspecific colitis K52.9 History of Clostridioides difficile colitis Z86.19 CAD (coronary artery disease) I25.10 Associated angina: without angina Coronary Disease-Associated Artery/Lesion type: unspecified vessel or lesion type [place] vs. transplanted heart: unspecified whether [place] or transplanted heart Ischemic cardiomyopathy I25.5 Tobacco use disorder F17.200 Trochanteric bursitis of left hip M70.62 DVT prophylaxis Z29.9 Additional Codes Critical Care Time - Critical Care Time: Yes ([id number]) (1) CAD (coronary artery disease) Associated angina: without angina Coronary Disease-Associated Artery/Lesion type: unspecified vessel or lesion type [place] vs. transplanted heart: unspecified whether [place] or transplanted heart Qualified Code(s): I25.10 - Atherosclerotic heart disease of [place] coronary artery without angina pectoris (2) Hepatitis C Hepatic coma status: without hepatic coma Viral hepatitis chronicity: chronic Qualified Code(s): B18.2 - Chronic viral hepatitis C (3) Hypertension Hypertension type: unspecified Qualified Code(s): I10 - Essential (primary) hypertension
[2020-05-11 12:53] LABS: Appearance Urine Clear (Clear); Bacteria Urine Automated Negative (Negative); Bilirubin Urine 3+ (Negative); Blood Urine Trace (Negative); Color Urine Dark Yellow; Glucose Urine UA Negative (Negative); Ketones Urine 1+ (Negative); Leukocyte Esterase Urine Negative (Negative); Nitrite Urine Negative (Negative); Protein Urine Negative (Negative); Specific Gravity Urine 1.017 (1.000-1.030); Urobilinogen Urine Negative (Negative); pH Urine 6.5 (4.5-7.5)
[2020-05-11 12:54] LABS: Ictotest Urine Positive (Negative)
[2020-05-11] MEDS ORDERED: chlordiazePOXIDE HCl 25 MG CAP PO ONE ×2 (13:02→13:06)
[2020-05-11 13:40] LABS: BUN Creatinine Ratio 8.6 (10-20); Calcium 6.8 mg/dl (8.5-10.1); Creatinine Clr Calc Pharmacy 177.4 ml/min; Est GFR (African American) 137.2; Est GFR (Non-African American) 118.4; Potassium 3.5 mmol/L (3.5-5.1)
[2020-05-11 13:54] LABS: Base Excess ABG -7.1 mEq/L (-9-1.8); HCO3 ABG 16 mmol/L (19-24); Oxygen Saturation ABG 98.2 % (90-95); PCO2 ABG 25 mmHg (35-46); PO2 ABG 110 mmHg (80-95); pH ABG 7.42 (7.35-7.45)
[2020-05-11] MEDS ORDERED: MAGNESIUM SULFATE / D5W 1 GM/100 ML BAG IV ONE ×2 (14:10→16:06)
[2020-05-11] MEDS ORDERED: POTASSIUM CHLORIDE / WTR 10 MEQ/100 ML PLCT IV ONE (14:12)
[2020-05-11 14:14] LABS: Allen Test Pos (Pos)
[2020-05-11] MEDS ORDERED: CALCIUM GLUCONATE 10% 10 ML VIAL IV ONE (14:14)
[2020-05-11] MEDS ORDERED: AZITHROMYCIN 500 MG in DEXTROSE 5% 250 ML IV ONE (14:30)
[2020-05-11] MEDS ORDERED: CALCIUM GLUCONATE 10% 1,000 MG in SODIUM CHLORIDE 0.9% 50 ML IV ONE (14:30)
[2020-05-11] MEDS ORDERED: GABAPENTIN 1200MG ALCOHOL WITHDRAWAL LOAD PO STA (15:56)
[2020-05-11] MEDS ORDERED: ATIVAN IV ALCOHOL WITHDRAWL IV PRN (15:56)
[2020-05-11] MEDS ORDERED: GABAPENTIN 600 MG TAB PO ONE (16:02)
[2020-05-11] MEDS ORDERED: LORazepam 1 MG/2 ML VIAL IV PRN (16:05)
[2020-05-11] MEDS ORDERED: LORazepam 3 MG/6 ML VIAL IV PRN (16:06)
[2020-05-11] MEDS ORDERED: THIAMINE HCL 100 MG TAB PO SCH (16:30)
[2020-05-11] MEDS: FOLIC ACID 1 MG TAB PO SCH (17:27)
[2020-05-11 19:20] LABS: Hematocrit (blood only) 33.9 % (42-52); Hemoglobin 11.6 g/dL (14.0-18.0)
[2020-05-11 19:40] LABS: BUN Creatinine Ratio 8.3 (10-20); Calcium 7.2 mg/dl (8.5-10.1); Creatinine Clr Calc Pharmacy 153.7 ml/min; Est GFR (African American) 129.4; Est GFR (Non-African American) 111.6; Potassium 3.4 mmol/L (3.5-5.1)
[2020-05-11] MEDS ORDERED: CALCIUM GLUCONATE 10% 1,000 MG in SODIUM CHLORIDE 0.9% 50 ML IV STA (19:58)
--- NOTE | 2020-05-11 20:40 | Critical Care Consultation ---
Date of Consultation May 11, 2020 Assessment & Plan (1) Admitted to intensive care unit: Reason Critically Ill: 59-year-old male presenting with dyspnea and altered mental status with associated alcohol withdrawal, acute liver failure in the setting of alcoholism, requiring close airway and hemodynamic monitoring as well as medication intervention for alcohol withdrawal. NEURO - * CAM ICU: Unable to assess secondary to current mental status. * Altered mental status: * Likely multifactorial in the hyponatremic patient with concerns for alcohol withdrawal. * Initial sodium of 117 appropriately corrected to 122. Please see RENAL/LYTES. * Ammonia level within normal limits. * Aggressive thiamine/folate replacement. * AWSS scale w/ benzodiazepines as needed. * Will place patient on Precedex gtt as patient appears very sensitive to IV benzodiazepine dosing. * Will order Head CT w/o contrast for ??ICH in the EtOH pt w/ INR of 1.5. * Seizure precautions. CARDIAC/VASCULAR - * Tachycardia: * Likely multifactorial in the setting of EtOH withdrawal, electrolyte derangement, encephalopathy, sepsis. * Judicious use of IVF as patient presented w/ Na of 117. * Consider volume expansion w/ colloid replacement if needed. * EKG: Sinus Tachycardia @125bpm. No ST/T-wave changes. QTc 438 ms. * Monitor on telemetry. RESPIRATORY - * Dyspnea: * Appears to have tachypneic respiratory pattern at baseline w/o hypoxia. * Concerns of PNA on CTA. * Currently on Zosyn - dual coverage for PNA/SBP. * AB.42/25/110/16 * Monitor closely for need for invasive airway intervention. Low threshold for intubation for airway protection in the EtOH patient w/ AMS. GI/NUTRITION - * ??Melanotic stools/GIB: * Rectal "deferred" in the ED. Started on Protonix gtt. * No profound drop in H&H. Agree with changing to Protonix BID boluses. * Trend H&H. * Varices noted on CTA. * Patient would be high risk for variceal bleeding. * No reported hematemesis. * Scant ascites noted on CT. * Will cover for SBP. * Appreciate GI consultation. * Alcoholic Hepatitis w/ Acute Hepatic Failure: * MELD - 29/Maddrey's - 30.3 * Will trend LFTs. RENAL/LYTES - * Hyponatremia: * Likely 2/2 EtOH. * Received 1L NSS/1L Banana bag in the ED. * Initially corrected from 117 --> 122 w/ IVF in ED. * Will aim to keep the patient ~123-124 for the next several hours. * Will hold on further IVF resuscitation in an attempt to avoid ODS. * No change in mental status despite correction of Na. Likely not as contributory to current AMS presentation. * Serial BMP q2h. * Hypokalemia: * Related to EtOH and limited diet. * Will replace aggressively. - * Smallwood in place - Strict I&Os. ENDO - * No h/o DM or Thyroid Dz * BSGs per unit protocol. ISS --> gtt per unit policy. HEME - * ??GIB: * Currently Type/Screened. * Elevated INR: * In the setting of acute hepatic failure. * Will treat w/ 10 mg Vitamin K per Day x3 days. ID - * Sepsis: * Concern for ??PNA on CTA. * Agree with Zosyn coverage initially. Can likely deescalate to Rocephin as CT not as consistent w/ aspiration presentation. * Elevated PCT. * Lactate of limited utility in the Hepatic patient. * Blood cultures pending. LINES/IV ACCESS - * PIVs x2 * Smallwood DVT PROPHYLAXIS - * Hold on chemoprophylaxis in the ??GIB w/ INR of 1.5 * SCDs I have personally spent 48 minutes of critical care time in the direct management of this patient. This is a life/limb threatening event. This includes time spent evaluating patient, direct bedside care, chart review, placing orders , interpretation of diagnostic studies, discussion with consultants, patient, and family members, as well as other required patient management activities. This time is exclusive of all separately billable procedures, and teaching time and separate from and in addition to any other critical care service time. Thank you for allowing us to participate in the care of this patient. Please refer to my attending physician's documentation for any further recommendations. (2) Acute dyspnea: (3) Alcohol withdrawal: (4) Pneumonia: (5) Liver cirrhosis: (6) Sepsis: (7) AMS (altered mental status): (8) Nonspecific colitis: (9) Severe protein-calorie malnutrition: (10) Acute hyponatremia: (11) Alcohol abuse: (12) Jaundice: (13) Acute alcoholic hepatitis: (14) Tobacco use disorder: History of Present Illness Attending Physician: Zohaib Matos MD History of Present Illness Patient is a 59-year-old male with a significant past medical history of alcoholism, coronary artery disease, hypertension, hyperlipidemia, ischemic cardiomyopathy, hepatitis C, and alcoholic cirrhosis. Patient was admitted to this facility with shortness of breath and altered mental status. Apparently, the patient has had increasing drinking over the last few months. He was prev iously laid off from his job and started drinking out of boredom. He drinks approximately 30 beers per day which she is done for the last 6 months. Patient has been admitted to this facility for alcohol withdrawals in the recent past. Per review of provider notes and discussing with colleagues, the patient presented with shortness of breath as well as jaundice and reports of possible black stools and bowel incontinence. Patient has not been taking his medications recently. He received doses of IV Ativan per AWSS scale. I was called to bedside as the patient had decreased level of consciousness and concern for needs for immediate airway intervention and closer monitoring. Upon assessment at bedside in room 209, the patient is agitated and fighting as they are attempting to draw blood work. ABG was performed which was essentially unremarkable. He is saturating well on room air. He speaks nonsensically. No focal neurological deficits on exam. Jaundiced in appearance. Allergies Allergy/AdvReac Type Severity Reaction Status Date / Time No Known Allergies Allergy Unverified 02/05/20 08:04 Home Medications Home Medications Medication Instructions Recorded Confirmed Type atorvastatin 40 mg tablet 40 mg PO DAILY 04/23/19 02/05/20 History folic acid 400 mcg tablet 0.4 mg PO DAILY tab 04/23/19 02/05/20 History lisinopril 40 mg tablet 40 mg PO DAILY #1 tab 04/23/19 02/05/20 History carvedilol 25 mg tablet 25 mg PO BID #60 tab 05/17/19 02/05/20 Rx [place]-3 1 cap PO DAILY 10/22/19 02/05/20 History ascorbic acid (vitamin C) [Vitamin 1,000 mg PO DAILY 10/22/19 02/05/20 History C] aspirin [Aspir-Low] 81 mg PO DAILY 10/22/19 02/05/20 History coenzyme Q10 [Co Q-10] 200 mg PO DAILY 10/22/19 02/05/20 History glucosamine-chondroitin [Osteo 1 tab PO BID 10/22/19 02/05/20 History Bi-Flex] milk thistle 1,000 mg PO BID 10/22/19 02/05/20 History nitroglycerin [Nitrostat] 0.4 mg SUBLINGUAL UD PRN 10/22/19 02/05/20 History vitamin B complex 1 tab PO DAILY 10/22/19 02/05/20 History meloxicam 15 mg tablet 15 mg PO DAILY #30 tab 11/01/19 02/05/20 Rx lorazepam 1 mg PO Q12H PRN #10 tab 11/22/19 02/05/20 Rx acetaminophen 300 mg-codeine 30 mg 1 tab PO TID PRN #90 tab 02/04/20 02/05/20 Rx tablet clopidogrel 75 mg tablet 75 mg PO DAILY #30 tab 02/04/20 02/05/20 Rx Patient History Medical History Alcohol dependence Alcohol withdrawal C. difficile diarrhea CAD (coronary artery disease) "03/29/2017 - anterior STEMI, s/p JEFFREY to LAD" Hepatitis C History of Clostridioides difficile colitis History of GI bleed "secondary to esophageal ulceration on EGD 11/29/2013" HTN (hypertension) Hyperlipidemia LDL goal <70 Ischemic cardiomyopathy "EF 30-35%" Obesity Renal artery stenosis "questionable" Surgical History H/O esophagogastroduodenoscopy "11/29/2013- Large lower esophageal ulceration. No bleeding. Portal hypertensive gastropathy. Erythematous duodenopathy. Normal 2nd part of the duodenum." Social History Smoking Status: Current every day smoker Tobacco Type: Cigarettes Cigarettes Per Day: 20; Second Hand Exposure: No; Do You Dip or Chew Tobacco: No; Tobacco Cessation Education Requested by Patient: No Hx Alcohol Use: Yes Alcohol type: beer Alcohol Intake Frequency Comment: 30 beers a day for the last 6 weeks Hx Substance Use: No Preferred Language: Macedonian Communication Ability: Effective Bead Inspector Required: No Beliefs That Will Affect Care: None marital status: Current Living Situation: Spouse Other Information That Helps Us Care for You: No Feels Safe at Home: Yes Safety Concerns: Feels Safe At This Time Review of Systems Review of Systems: Unobtainable due to reduced consciousness Physical Exam Physical Exam: VITAL SIGNS - Vital signs and nursing notes were reviewed. GENERAL - 59-year-old male appearing his stated age who is in no acute distress. Somnolent. Agitated with stimulation. Jaundiced appearing. SKIN - Icteric. HEAD - NC/AT. EYES - PERRL with EOMI bilaterally. Scleral icterus. EARS - No deformities of external structures noted on gross examination bilaterally. NOSE - Midline and without cyanosis. MOUTH/OROPHARYNX - Without perioral cyanosis. Buccal mucosa pink and dry. NECK - Neck with FROM. Supple to palpation. No lymphadenopathy noted. No nuchal rigidity. LUNGS - Chest wall symmetric without accessory muscle use, intercostals retractions, or central cyanosis. Normal vesicular breath sounds CTA B/L. No wheezes, rales, or rhonchi appreciated. CARDIAC - RRR with S1/S2. No murmur, rubs, or gallops appreciated. ABDOMEN - Abdominal contour obese without pulsations or visible masses. BS normoactive all four quadrants. No tenderness, palpable masses, hepatosplenomegaly, or significant ascites noted. EXTREMITIES - No clubbing or peripheral cyanosis. No pretibial edema present. +3/5 radial and dorsalis pedis pulses palpated throughout. +5/5 strength noted in UE/LE bilaterally. NEUROLOGIC - Cranial nerves II through XII grossly intact. No focal neurological deficits appreciated. Unable to fully obtain exam 2/2 AMS. Results & Data Results & Data ([facility]) Vital Signs (Past 12 Hours) Vital Signs Temp Pulse Pulse Resp BP BP Pulse Ox 05/11/20 19:25 36.6 C 131 H 28 H 131/81 98 05/11/20 16:26 124 H 05/11/20 16:05 05/11/20 16:02 37.4 C 127 H 14 136/94 96 05/11/20 15:01 128 H 29 H 98 05/11/20 15:00 127 H 19 134/101 H 98 05/11/20 14:31 127 H 21 98 05/11/20 14:30 127 H 17 120/99 97 05/11/20 14:01 127 H 15 98 05/11/20 14:00 127 H 23 126/84 96 05/11/20 13:01 129 H 129/93 98 05/11/20 13:00 129 H 16 05/11/20 12:52 133 H 25 H 160/89 H 05/11/20 12:30 118 H 29 H 05/11/20 12:00 127 H 23 05/11/20 11:31 125 H 16 98 05/11/20 11:30 125 H 21 136/89 100 05/11/20 11:15 117 H 30 H 144/101 H 99 05/11/20 11:01 121 H 23 98 05/11/20 11:00 117 H 26 H 139/95 97 05/11/20 10:51 119 H 31 H 125/93 98 05/11/20 10:30 121 H 20 05/11/20 10:18 93 05/11/20 10:15 128 H 28 H 96/73 L 97 05/11/20 10:14 128 H 29 H 98 05/11/20 10:11 128 H 20 122/84 98 05/11/20 10:03 37.2 C 133 H 24 110/71 98 Pulse Ox 05/11/20 19:25 05/11/20 16:26 05/11/20 16:05 96 05/11/20 16:02 05/11/20 15:01 05/11/20 15:00 05/11/20 14:31 05/11/20 14:30 05/11/20 14:01 05/11/20 14:00 05/11/20 13:01 05/11/20 13:00 05/11/20 12:52 05/11/20 12:30 05/11/20 12:00 05/11/20 11:31 05/11/20 11:30 05/11/20 11:15 05/11/20 11:01 05/11/20 11:00 05/11/20 10:51 05/11/20 10:30 05/11/20 10:18 05/11/20 10:15 05/11/20 10:14 05/11/20 10:11 05/11/20 10:03 Coding Level of Care Code Critical Care 1st 30-74 mins Diagnoses Admitted to intensive care unit Z78.9 Acute dyspnea R06.00 Alcohol withdrawal F10.239 Pneumonia J18.9 Liver cirrhosis K74.60 Sepsis A41.9 AMS (altered mental status) R41.82 Nonspecific colitis K52.9 Severe protein-calorie malnutrition E43 Acute hyponatremia E87.1 Alcohol abuse F10.10 Jaundice R17 Acute alcoholic hepatitis K70.10 Tobacco use disorder F17.200 Time Spent (min) 48
[2020-05-11] MEDS ORDERED: STAT IV Infusion **Titration per Protocol STA (20:51)
[2020-05-11] MEDS ORDERED: DEXMEDETOMIDINE HCL 200 MCG in SODIUM CHLORIDE 0.9% 48 ML IV SCH (21:00)
[2020-05-11] MEDS ORDERED: PIPERACILLIN/TAZOBACTAM 4.5 GM in DEXTROSE 5% 100 ML IV ONE (21:00)
[2020-05-11] MEDS ORDERED: ICU PROTOCOL FOR HYPERGLYCEMIA PRN (21:09)
[2020-05-11] MEDS ORDERED: GLUCOSE 40% GEL 15 GM TUBE PO PRN (21:09)
[2020-05-11] MEDS ORDERED: CARBOHYDRATES FOR HYPOGLYCEMIA PO PRN (21:09)
[2020-05-11] MEDS ORDERED: GLUCOSE 10 TABS/TUBE PO PRN (21:09)
[2020-05-11] MEDS ORDERED: DEXTROSE 50% 50 ML SYRINGE IV PRN (21:09)
[2020-05-11] MEDS ORDERED: GLUCAGON FOR INJ 1 MG VIAL SQ PRN (21:09)
[2020-05-11] MEDS: PANTOprazole 40 MG in SYRINGE 0 ML IV SCH (21:11)
[2020-05-11 21:18] LABS: Hematocrit (blood only) 33.8 % (42-52); Hemoglobin 11.9 g/dL (14.0-18.0)
[2020-05-11] MEDS: POTASSIUM CHLORIDE / WTR 10 MEQ/100 ML PLCT IV SCH ×3 (21:18→23:22)
[2020-05-11] MEDS: DEXMEDETOMIDINE HCL IV SCH (21:23)
[2020-05-11] MEDS: DEXTROSE 5% IV SCH (21:23)
[2020-05-11 21:36] LABS: Calcium 7.3 mg/dl (8.5-10.1); Creatinine Clr Calc Pharmacy 144.1 ml/min; Est GFR (Non-African American) 108.7; Potassium 3.3 mmol/L (3.5-5.1)
[2020-05-11] MEDS: THIAMINE HCL 500 MG in SODIUM CHLORIDE 0.9% 50 ML IV SCH (21:39)
[2020-05-11] MEDS ORDERED: PHYTONADIONE 10 MG in SODIUM CHLORIDE 0.9% 50 ML IV SCH (22:00)
[2020-05-11] MEDS ORDERED: GABAPENTIN 600 MG TAB PO SCH (22:00)
[2020-05-11] MEDS: PHYTONADIONE 10 MG in DEXTROSE 5% 50 ML IV SCH (22:09)
[2020-05-12] MEDS: POTASSIUM CHLORIDE / WTR 10 MEQ/100 ML PLCT IV SCH ×3 (00:06→02:18)
[2020-05-12 00:27] LABS: BUN Creatinine Ratio 8.3 (10-20); Calcium 7.1 mg/dl (8.5-10.1); Creatinine Clr Calc Pharmacy 151.2 ml/min; Est GFR (African American) 128.5; Est GFR (Non-African American) 110.9; Potassium 3.8 mmol/L (3.5-5.1)
[2020-05-12 01:32] LABS: Hemoglobin 10.9 g/dL (14.0-18.0)
[2020-05-12] MEDS ORDERED: PIPERACILLIN/TAZOBACTAM 4.5 GM in DEXTROSE 5% 100 ML IV SCH (02:00)
[2020-05-12 02:08] LABS: BUN Creatinine Ratio 8.3 (10-20); Creatinine Clr Calc Pharmacy 126.3 ml/min; Est GFR (African American) 119.3; Potassium 3.9 mmol/L (3.5-5.1)
[2020-05-12 04:16] LABS: Hematocrit (blood only) 30.8 % (42-52); Hemoglobin 10.8 g/dL (14.0-18.0); Mean Corpuscular Hemoglobin 37.6 pg (25-34); Mean Corpuscular Hgb Conc 35.1 g/dL (32-36); Mean Corpuscular Volume 107.3 fL (80-100); Nucleated RBC # (auto) 0.04 K/uL (0-0); Nucleated RBC % (auto) 0.5 %; RDW Coefficient of Variation 14.8 % (11.5-14.5); RDW Standard Deviation 58.2 fL (36.4-46.3); Red Blood Count 2.87 M/uL (4.7-6.1); White Blood Count 8.13 K/uL (4.8-10.8)
[2020-05-12 04:25] LABS: INR 1.4 (0.9-1.1); Partial Thromboplastin Ratio 1.1; Partial Thromboplastin Time 31.6 Seconds (21.0-31.0); Prothrombin Time 14.1 Seconds (9.0-12.0)
[2020-05-12 04:35] LABS: Albumin Level 1.5 gm/dl (3.4-5.0); BUN Creatinine Ratio 8.1 (10-20); Bilirubin Direct 9.8 mg/dl (0-0.2); Calcium 7.1 mg/dl (8.5-10.1); Creatinine Clr Calc Pharmacy 115.3 ml/min; Est GFR (African American) 114.9; Est GFR (Non-African American) 99.2; Magnesium 2.1 mg/dl (1.8-2.4)
[2020-05-12 04:43] LABS: Platelet Count 80 K/uL (130-400)
[2020-05-12 04:44] LABS: Basophils # (auto) 0.01 K/uL (0-0.2); Basophils % (auto) 0.1 %; Immature Granulocytes # (auto) 0.05 K/uL (0.00-0.02); Immature Granulocytes % (auto) 0.6 %; Lymphocytes # (auto) 0.56 K/uL (1.2-3.4); Lymphocytes % (auto) 6.9 %; Monocytes # (auto) 0.44 K/uL (0.11-0.59); Monocytes % (auto) 5.4 %; Neutrophils # (auto) 7.07 K/uL (1.4-6.5); Platelet Estimate Decreased (Normal); Target Cells 1+
[2020-05-12 04:47] LABS: Bilirubin,Total 12.8 mg/dl (0.2-1); Phosphorus 1.1 mg/dl (2.5-4.9); Total Protein 5.2 gm/dl (6.4-8.2)
[2020-05-12] MEDS ORDERED: POTASSIUM PHOS 3 MMOL/1 ML INFUSION IV STA ×2 (04:56→16:43)
[2020-05-12] MEDS ORDERED: POTASSIUM PHOSPHATE 21 MMOL in SODIUM CHLORIDE 0.9% 500 ML IV ONE (05:15)
--- NOTE | 2020-05-12 07:19 | CT Scan Report ---
CT SCAN OF THE BRAIN WITHOUT IV CONTRAST CLINICAL HISTORY: Change in mental status. COMPARISON STUDY: CT of the brain dated 02/20/2020. TECHNIQUE: Unenhanced axial CT scan of the brain is performed from the vertex to the skull base. A d ose lowering technique was utilized adhering to the principles of ALARA. The patient was scanned twic e due to motion artifact. CT DOSE: 1393.64 mGycm FINDINGS: Brain parenchyma: There is minimal subcortical and periventricular microangiopathic disease. There is no hemorrhage, mass effect, or evidence of acute territorial ischemia by CT criteria. Tavarez-white mat ter differentiation is preserved. No extra-axial fluid collection is seen. Ventricles, sulci, cisterns: Normal in configuration. Intracranial vasculature: There is atherosclerotic calcification of the cavernous carotid arteries. Calvarium: Unremarkable. Soft tissues: A small metallic foreign body is present in the left facial soft tissues on image #10. Sinuses and mastoids: The visualized paranasal sinuses are clear. There is a left mastoid effusion. T he right mastoid air cells are well pneumatized. Orbits: The bony orbits are grossly intact. IMPRESSION: There is no hemorrhage, mass effect, or evidence of acute territorial ischemia by CT donis rabago. ACT 112: Negative or not required by law. Electronically signed by: Rusty Francois M.D. 05/12/2020 7:17 AM
[2020-05-12 07:56] LABS: BUN Creatinine Ratio 7.9 (10-20); Calcium 7.5 mg/dl (8.5-10.1); Creatinine Clr Calc Pharmacy 97.9 ml/min; Est GFR (Non-African American) 93.2
--- NOTE | 2020-05-12 08:23 | XRay Report ---
XR chest 1V portable HISTORY: Dyspnea. COMPARISON: Chest 05/11/2020. FINDINGS: No pneumothorax. No pleural effusions. The heart remains mildly enlarged. There are low ale g volumes. Patchy scattered airspace opacities, left greater than right. This has slightly improved. No new focal lung consolidations. IMPRESSION: Slight improvement in the scattered patchy hazy airspace opacities, left greater than right. ACT 112: Negative or not required by law. Electronically signed by: Aguila Alamo M.D. 05/12/2020 8:21 AM
[2020-05-12] MEDS: FOLIC ACID 1 MG TAB PO SCH (08:26)
--- NOTE | 2020-05-12 08:50 | Critical Care Progress Note ---
Date of Service May 12, 2020 Assessment & Plan Admission and Anticipated Discharge Date Admission Date: May 11, 2020 Reason Critically Ill: 59-year-old male here with a pMHx. significant for alcoholism, cirrhosis, and hepatitis C, who presented with AMS and dyspnea and who was under ICU care for airway monitoring. Patient appears stable and can be downgraded out of the ICU if they continue to improve today. Neuro - CAM ICU: positive Sedation: stopped Precedex this AM - AMS on admission, currently garbled speech, not oriented this is potentially multifactorial from hyponatremia, medication, and ETOH - high dose Thiamine for 5 days, IV folic acid - Ativan ordered per withdrawal protocol - most recent AWSS 8, score last dose one day prior - ammonia less than 10, recheck this AM Cardiac - - Hx. of PCI in 2016 with JEFFREY placed, was on dual antiplatelet with ASA Plavix with plan for one year of Plavix and ASA indefinitely, currently holding ASA - Tachycardic likely 2/2 alcohol withdrawal, EKG w/ sinus tachycardia, current HR 77 - prior history of ischemic cardiomyopathy: prior ECHO from September with EF 55- 60%, grade 1 diastolic disfunction and nl. atrial size - troponin 0.025, no ST elevations on EKG Respiratory - - patient presented with dyspnea, concern for pneumonia on CT with KIANNA consolidation and LLL ground glass opacities, started on Zosyn in the ED - deescalated to: Azithromycin, Rocephin - ABG with findings of: primary respiratory alkalosis, chronic with secondary metabolic acidosis and additional non-gap metabolic acidosis - Oz- herrera respirations concerning for central sleep apnea GI - - GI consulted for cirrhosis in the setting of ETOH abuse and hepatitis C; MRCP ordered to rule out obstruction, and labs to further evaluate his elevated LFT's are pending - LFT's improved to AST 184 and ALT 81, continue to monitor - initial concern for GIB, continue to follow H&H, BP, HR, UOP - Protonix IV BID - NPO due to altered mental status RENAL/LYTES - - Hyponatremia Na 117 initially improved to 121 over the last 24 hours, patient is hypervolemic w/ edema in the lower extremity - Lasix 20 mg IV ordered today - ensure max. increase of sodium is 8 over 24 hours - BMP Q6H Hypokalemia likely 2/2 poor dietary intake - replace and monitor Hypophosphatemia 1.1 - If level drops below 1 will treat with IV, if patient is able to take orals we will replete with oral agents - - Cr. 0.8 - Smallwood in place to follow UOP closely - 20 mg IV lasix ordered, will follow BMP ENDO - - no concerns right now HEME - - Stable H&H., continue to follow - thrombocytopenia potentially dilutional, continue to follow ID - - concern for PNA on CT with L>R ground glass opacities - pt. has been afebrile during this admission - MRSA nasal swab negative - initially ordered Vancomycin Zosyn, - transition to Azithromycin, Rocephin, QTc: 438 - cultures pending - elevated procalcitonin, lactate 2.3 INTEGUMENTARY - - no acute concerns LINES/IV ACCESS - - PIV intact., Smallwood in place DVT PROPHYLAXIS - - SCD's Thank you for allowing us to be part of this patient's care. Please refer to Dr. Cooley's documentation for any further recommendations. Supervising Physician Co-Signing Physician Notes Patient seen and examined with ICU nurse and family practice resident. Discussed on multidisciplinary rounds. Agree with assessment and plan as noted. 59-year-old male admitted with hypoxemic respiratory failure, pneumonia, and acute on chronic hepatic failure. Appreciate GI consultation. He is been initiated on Acetadote. MRCP is currently pending. Continue benzodiazepines as well as high-dose thiamine and folate for potential hepatic encephalopathy and alcohol withdrawal. Add low-dose glucose to IV fluids. De-escalate antibiotics down to Rocephin and azithromycin. Review of CT scan does not demonstrate clear area amenable to paracentesis so we will hold off for now. Wean oxygen as tolerated. Follow mental status off Precedex and if does well can likely transfer to the floor in the next 24 hours. Subjective Patient unable to speak clearly on exam, following commands. Shook head no when asked if he was in any pain. Review of Systems Review of Systems: Unobtainable due to cognitive status Physical Exam Constitutional: + obese and + altered mental status Eyes: - icteric sclera ENMT: external ear and nose normal, oropharynx normal Neck: normal visual inspection Respiratory: no respiratory distress and does not use accessory muscles - lungs clear to auscultation, coughing Cardiovascular: RRR, no murmur, no edema Extremities: + edema Gastrointestinal (Abdomen): - protuberant abdomen, no significant fluid wave Skin: - jaundice Neurologic: - garbled speech, responsive to verbal stimuli and follows commands Results & Data Results & Data ([facility]) Vital Signs (Past 12 Hours) Vital Signs Temp Pulse Resp BP Pulse Ox 05/12/20 08:00 36.8 C 05/12/20 04:34 85 32 H 106/69 98 05/12/20 04:30 84 23 97 05/12/20 04:04 90 32 H 106/67 95 05/12/20 04:00 83 18 95 05/12/20 03:34 84 23 96/69 L 94 05/12/20 03:30 84 35 H 95 05/12/20 03:05 97 H 26 H 106/71 97 05/12/20 03:00 90 40 H 94 05/12/20 02:34 97 H 22 117/84 96 05/12/20 02:30 105 H 24 93 05/12/20 02:04 95 H 33 H 104/68 96 05/12/20 02:00 96 H 21 96 05/12/20 01:34 102 H 31 H 114/74 94 05/12/20 01:30 100 H 42 H 93 05/12/20 01:05 101 H 24 97/77 L 97 05/12/20 01:00 101 H 35 H 96 05/12/20 00:34 103 H 29 H 101/78 96 05/12/20 00:30 103 H 31 H 93 05/12/20 00:05 105 H 23 96 05/12/20 00:04 106 H 23 117/72 95 05/12/20 00:00 108 H 44 H 94 05/11/20 23:34 113 H 43 H 100/71 94 05/11/20 23:30 119 H 39 H 95 05/11/20 23:04 121 H 38 H 100/72 93 05/11/20 23:00 122 H 40 H 94 05/11/20 22:48 122 H 118/88 92 05/11/20 22:47 124 H 93 05/11/20 22:16 126 H 119/72 94 05/11/20 22:05 129 H 25 H 55/51 L 95 05/11/20 22:00 128 H 41 H 93 08/23/20 21:35 130 H 32 H 121/79 95 05/11/20 21:30 128 H 42 H 94 05/11/20 21:00 132 H 28 H 94 05/11/20 20:59 133 H 31 H 133/91 94 05/11/20 20:45 125 H 29 H 96 05/11/20 20:44 128 H 44 H 124/87 94 CBC Results Results Complete Blood Count Results: RBC 2.87 M/uL (4.7-6.1) L 05/12/20 WBC 8.13 K/uL (4.8-10.8) 05/12/20 Hgb 10.8 g/dL (14.0-18.0) L 05/12/20 Hct 30.8 % (42-52) L 05/12/20 Plt Count 80 K/uL (130-400) L 05/12/20 Chemistry (BMP) Results BMP Results: Sodium 123 mmol/L (136-145) L 05/12/20 Potassium 3.9 mmol/L (3.5-5.1) 05/12/20 Chloride 94 mmol/L (98-107) L 05/12/20 BUN 8 mg/dl (7-18) 05/12/20 Creatinine 0.81 mg/dl (0.6-1.4) 05/12/20 Glucose 79 mg/dl (70-99) 05/12/20 Resident Activity Tracking Resident Involvement: Resident Care Provided Care Provided: Adult [facility]
[2020-05-12 09:24] LABS: BUN Creatinine Ratio 9.1 (10-20); Calcium 7.3 mg/dl (8.5-10.1); Creatinine Clr Calc Pharmacy 107.3 ml/min; Est GFR (African American) 113.2; Est GFR (Non-African American) 97.7; Potassium 3.9 mmol/L (3.5-5.1)
--- NOTE | 2020-05-12 09:29 | Gastrointestinal Consultation ---
Date of Consultation May 12, 2020 Assessment & Plan (1) Alcohol abuse: (2) Liver cirrhosis: (3) Acute hyponatremia: (4) Nonspecific colitis: Pt is a 59 y/o male, who presented with SOB, chills symptoms ? black stools prior to admission but no BMs or other signs of GI bleeding since adm itted. COVID 19 negative. He has hx of heavy ETOH abuse, on evaluation noted to have likely pneumonia. Abd imaging showed fatty and cirrhotic appearing liver w small volume ascites, evidence of portal HTN, varices, non specific colitis. MLED 28, Maddreys Discriminant Function Score 22. On exam he's very hard to arouse today, received sedatives for ETOH withdrawal symptoms last night. - Start N-Acetylcysteine protocol - Monitor closely for s/s of GI bleeding - Monitor closely mental status, changes in coag studies and renal function daily - Check APAP level, urine toxicology - Electrolyte correction per primary team - Obtain MRCP to r/o biliary obstruction - Cirrhosis workup: obtain hepatitis, viral serologies, AIH serologies. - Check Cdiff, stool cx if diarrhea present Supervising Physician Co-Signing Physician Notes I have seen and examined the patient and discussed the management with DENNYS Ruiz. 59 yo male with a history of prior admissions in 12/06, 02/05, and now for alcohol intoxication superimposed on cirrhosis, with questionable pna. He is somnolent on exam, perrl, normal lung exam, abd slightly distended but soft - no wincing with palpation MELD 28 but likely falsely high due to mild alcoholic hepatitis (MDF is less than 32) Infectious workup pending Other workup for elevated ast/alt including viral/aih serologies. MRCP pending for elevated TB/DB. On empiric abx with azithromycin and zosyn for presumed pna. On precedex, thiamine, phosphate for alcoholic hepatitis. Could consider NAC for 21 hours given MDF is less than 32 and concerns for infection. On protonix iv bid for reported black stools but stable h/h. EGD last in 2015 without varices, prior to that in 2013 with lower esophageal ulceration. History of Present Illness Reason for Consultation: ? GI bleed, ETOH hepatitis Requesting Physician: Dr. Gisella Thomas Attending Physician: Dr. Amalia Davis History of Present Illness Pt is a 59 y/o male who presented to ED brought by family yesterday for SOB & chills. Hx of heavy ETOH uses (30 beers daily). Recently admitted tin January for ETOH withdrawal. Pt unable to give history at this time due to reduced consciousness. Chart reviewed. Labs notable for macrocytic anemia (Hgb 12 -> 10), plt 80. PT/INR 14/1.4. Na 116 -> 121. BUN/Cr 7/0.9. LFTs: Tbili 12, AST 184, ALT 81, Alk phos 227. Head CT negative. CXR showed possible pneumonia. COVID [address] abd/pelvis w contrast showed fatty & cirrhotic appearing liver w small ascites, evidence of portal HTN, varices. Non specific colon wall thickening especially in, ascending colon and hepatic flexure suggestive of non specific colitis, no abscess or free air, no bowel obstruction. No PE on chest CT. Calculated MELD 28, Maddrey Discriminant Function score 22. There was a reports of passing black stools prior to ED presentation. However no signs of n/v, passage of melena or BRBPR per RN. He received Ativan and Percedex last night for ETOH withdrawal management. Last EGD/colonoscopy in 2016 - unremarkable EGD. Colonoscopy showed diverticulosis and tubular adenoma, hyperplastic polyps. Allergies Allergy/AdvReac Type Severity Reaction Status Date / Time No Known Allergies Allergy Unverified 02/05/20 08:04 Home Medications Home Medications Medication Instructions Recorded Confirmed Type atorvastatin 40 mg tablet 40 mg PO DAILY 04/23/19 02/05/20 History folic acid 400 mcg tablet 0.4 mg PO DAILY tab 04/23/19 02/05/20 History lisinopril 40 mg tablet 40 mg PO DAILY #1 tab 04/23/19 02/05/20 History carvedilol 25 mg tablet 25 mg PO BID #60 tab 05/17/19 02/05/20 Rx Philo-3 1 cap PO DAILY 10/22/19 02/05/20 History ascorbic acid (vitamin C) [Vitamin 1,000 mg PO DAILY 10/22/19 02/05/20 History C] aspirin [Aspir-Low] 81 mg PO DAILY 10/22/19 02/05/20 History coenzyme Q10 [Co Q-10] 200 mg PO DAILY 10/22/19 02/05/20 History glucosamine-chondroitin [Osteo 1 tab PO BID 10/22/19 02/05/20 History Bi-Flex] milk thistle 1,000 mg PO BID 10/22/19 02/05/20 History nitroglycerin [Nitrostat] 0.4 mg SUBLINGUAL UD PRN 10/22/19 02/05/20 History vitamin B complex 1 tab PO DAILY 10/22/19 02/05/20 History meloxicam 15 mg tablet 15 mg PO DAILY #30 tab 11/01/19 02/05/20 Rx lorazepam 1 mg PO Q12H PRN #10 tab 11/22/19 02/05/20 Rx acetaminophen 300 mg-codeine 30 mg 1 tab PO TID PRN #90 tab 02/04/20 02/05/20 Rx tablet clopidogrel 75 mg tablet 75 mg PO DAILY #30 tab 02/04/20 02/05/20 Rx Patient History Medical History Alcohol dependence Alcohol withdrawal C. difficile diarrhea CAD (coronary artery disease) "03/29/2017 - anterior STEMI, s/p JEFFREY to LAD" Hepatitis C History of Clostridioides difficile colitis History of GI bleed "secondary to esophageal ulceration on EGD 11/29/2013" HTN (hypertension) Hyperlipidemia LDL goal <70 Ischemic cardiomyopathy "EF 30-35%" Obesity Renal artery stenosis "questionable" Surgical History H/O esophagogastroduodenoscopy "11/29/2013- Large lower esophageal ulceration. No bleeding. Portal hypertensive gastropathy. Erythematous duodenopathy. 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 Beliefs That Will Affect Care: None marital status: Current Living Situation: Spouse Other Information That Helps Us Care for You: No Feels Safe at Home: Yes Safety Concerns: Feels Safe At This Time Review of Systems Review of Systems: Unobtainable due to reduced consciousness Physical Exam Constitutional: comfortable He's only able to momentarily open eyes when instructed to, otherwise drowsy; received sedatives overnight for ETOH withdrawal Eyes: icteric sclera ENMT: external ear and nose normal, oropharynx normal Respiratory: no respiratory distress and does not use accessory muscles Auscultation: + diminished lung sounds Cardiovascular: RRR, no murmur, no edema Gastrointestinal (Abdomen): Inspection/Auscultation: + hypoactive bowel sounds Skin: no rashes, warm and dry + jaundice Neurologic: drowsy, hard to arouse, received sedatives last night Lymphatic: no lymphedema Results & Data ([facility]) Vital Signs (Past 12 Hours) Vital Signs Temp Pulse Resp BP Pulse Ox 05/12/20 08:00 36.8 C 05/12/20 04:34 85 32 H 106/69 98 05/12/20 04:30 84 23 97 05/12/20 04:04 90 32 H 106/67 95 05/12/20 04:00 83 18 95 05/12/20 03:34 84 23 96/69 L 94 05/12/20 03:30 84 35 H 95 05/12/20 03:05 97 H 26 H 106/71 97 05/12/20 03:00 90 40 H 94 05/12/20 02:34 97 H 22 117/84 96 05/12/20 02:30 105 H 24 93 05/12/20 02:04 95 H 33 H 104/68 96 05/12/20 02:00 96 H 21 96 05/12/20 01:34 102 H 31 H 114/74 94 05/12/20 01:30 100 H 42 H 93 05/12/20 01:05 101 H 24 97/77 L 97 05/12/20 01:00 101 H 35 H 96 05/12/20 00:34 103 H 29 H 101/78 96 05/12/20 00:30 103 H 31 H 93 05/12/20 00:05 105 H 23 96 05/12/20 00:04 106 H 23 117/72 95 05/12/20 00:00 108 H 44 H 94 05/11/20 23:34 113 H 43 H 100/71 94 05/11/20 23:30 119 H 39 H 95 05/11/20 23:04 121 H 38 H 100/72 93 05/11/20 23:00 122 H 40 H 94 05/11/20 22:48 122 H 118/88 92 05/11/20 22:47 124 H 93 05/11/20 22:16 126 H 119/72 94 05/11/20 22:05 129 H 25 H 55/51 L 95 05/11/20 22:00 128 H 41 H 93 05/11/20 21:35 130 H 32 H 121/79 95 05/11/20 21:30 128 H 42 H 94
[2020-05-12] MEDS ORDERED: FUROSEMIDE 20 MG in SYRINGE 0 ML IV ONE (09:30)
--- NOTE | 2020-05-12 10:02 | Electrocardiogram Report ---
Test Reason : Blood Pressure : / mmHG Vent. 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
[2020-05-12] MEDS ORDERED: D5W AND NSS 1,000 ML IV SCH (10:15)
[2020-05-12] MEDS: cefTRIAXone SODIUM 2,000 MG in DEXTROSE 5% 50 ML IV SCH (10:33)
[2020-05-12] MEDS: PANTOprazole 40 MG in SYRINGE 0 ML IV SCH ×2 (10:33→20:36)
[2020-05-12] MEDS: THIAMINE HCL 500 MG in SODIUM CHLORIDE 0.9% 50 ML IV SCH ×3 (10:35→20:38)
[2020-05-12 10:50] LABS: iSTAT Arterial Blood Gas HCO3 15 meg/L (19-24); iSTAT Arterial Blood Gas pCO2 21 mmHg (35-46); iSTAT Arterial Blood Gas pH 7.46 (7.35-7.45); iSTAT Arterial Blood Gas pO2 94 mmHg (80-95); iSTAT Carbon Dioxide 15 mmol/L (24-31); iSTAT Hematocrit 36 % (42-52); iSTAT Hemoglobin 12.2 g/dl (14.0-18.0); iSTAT Potassium 3.3 mmol/L (3.3-5.0); iSTAT Sodium 121 mmol/L (135-144)
[2020-05-12 10:51] LABS: iSTAT Sample Type Arterial
[2020-05-12 10:51] LABS: BUN Creatinine Ratio 10.1 (10-20); Calcium 7.2 mg/dl (8.5-10.1); Est GFR (African American) 114.3; Est GFR (Non-African American) 98.7; Potassium 3.9 mmol/L (3.5-5.1)
[2020-05-12 10:52] LABS: iSTAT Arterial Blood Gas HCO3 18 meg/L (19-24); iSTAT Arterial Blood Gas pCO2 25 mmHg (35-46); iSTAT Arterial Blood Gas pH 7.46 (7.35-7.45); iSTAT Arterial Blood Gas pO2 72 mmHg (80-95); iSTAT Carbon Dioxide 18 mmol/L (24-31)
[2020-05-12 10:53] LABS: iSTAT Sample Type Arterial
[2020-05-12 11:09] LABS: Hepatitis B Surface Antigen Neg (Neg)
[2020-05-12] MEDS: PHYTONADIONE 10 MG in DEXTROSE 5% 50 ML IV SCH (11:09)
[2020-05-12] MEDS: DEXMEDETOMIDINE HCL IV SCH (11:10)
[2020-05-12] MEDS: DEXTROSE 5% IV SCH (11:10)
[2020-05-12] MEDS ORDERED: AcetylCYSTEINE IV 21 HR REGIMEN (>40KG) IV STA (11:13)
[2020-05-12] MEDS ORDERED: DEXTROSE 5% IV ONE ×3 (11:30→16:30)
[2020-05-12] MEDS ORDERED: ACETYLCYSTEINE IV ONE ×3 (11:30→16:30)
[2020-05-12] MEDS: FOLIC ACID 1 MG in SYRINGE 9.8 ML IV SCH (12:04)
[2020-05-12 12:56] LABS: Amphetamines+Metham, Urine Neg (Neg); Barbiturates, Urine Neg (Neg); Benzodiazepine, Urine Neg (Neg); Cocaine, Urine Neg (Neg); MDMA (Ecstacy), Urine Neg (Neg); Methadone, Urine Neg (Neg); Opiate, Urine Neg (Neg); Phencyclidine, Urine Neg (Neg)
--- NOTE | 2020-05-12 13:25 | Hospitalist Progress Note ---
Date of Service May 12, 2020 Assessment & Plan (1) Acute metabolic encephalopathy: Suspect secondary to alcohol withdrawal, alternatively due to lorazepam use. Thiamine 500mg IV TID to prevent Wernicke's encephalopathy. Ammonia levels are neg Hyponatremia possibly also contributing (management as below). Utox pending Lactic acid improved s/p ED interventions (2) Acute alcoholic hepatitis: MELD score 29, 19.6% 3 month mortality. Maddrey discriminant function 30 - therefore no steroids recommended at this time. Drummond alcoholic hepatitis score 7 - (scores < 9, better 28 and 84 day survival). Monitor LFTs and scores for progression and need for prednisolone. GI planning for NAC protocol and MRCP (3) Liver cirrhosis: No prior biopsy but high likelihood given varices seen on imaging and both hepatitis C and alcohol use as potential causes. Will need outpatient GI follow up. (4) Pneumonia: Vancomycin, Zosyn, azithromycin given in ER. Procalcitonin and WBC elevated therefore will continue broad-spectrum antibiotics especially covering aspiration given high risk events with alcohol use. MRSA nasal swab - if negative can discontinue vancomycin as despite alcohol history CT appearance more of pneumonitis/viral pneumonia than MRSA. (5) Alcohol withdrawal: Ativan 2 to 3 mg IV given in ER Previously placed on gabapentin protocol with Ativan PRN with good effect. Therefore will prescribe the same again unless needing frequent doses of Ativan can add WESLY chlordiazepoxide. (6) Alcohol abuse: Consult rn case mgr to assist with alcohol rehabilitation once patient is through withdrawal states that pt has not left his "man cave" for 5 months due to depression and anxiety related to COVID and subsequent job loss and pain issues (7) Acute hyponatremia: Severe with sodium 117 on admission, now improving Suspected secondary to beer potomania and should resolve with alcohol cessation. Also with hypoK and hypoPhos, improving (8) Jaundice: Bilirubin 13.7 secondary to presumed alcoholic hepatitis. Monitor LFTs (9) Depression: Seems likely related to COVID issues, job loss, loss of insurance, unable to get hip surgery Will need assessed for rx tx once alcohol issues are more stable (10) Hepatitis C: Chronic active. Follow-up with gastroenterology. No need for acute viral load. (11) Hypertension: Hypotensive on admission likely secondary to alcohol withdrawal. He is not taking his antihypertensives at home. We will continue to monitor blood pressure throughout the day to consider starting carvedilol as blood pressure allows. Hold lisinopril 40 mg p.o. daily (12) Severe protein-calorie malnutrition: Consult dietary once less encephalopathic and can eat and drink. (13) Nonspecific colitis: Suspect related to alcohol and opiate use/withdrawal. Concern for possible melena from history. Will continue on IV pantoprazole drip pending repeat H&H. Collect stool for FOB and stool culture. If watery will repeat his C. difficile however he appears to be a carrier of this and no indication unless his diarrhea is watery. 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 Although I am unclear of his indication for dual antiplatelet therapy. Platelet count 109 on admission, monitor Hold statin due to elevated LFTs Carvedilol as above (16) Ischemic cardiomyopathy: Appears to be resolved. LVEF 55 to 60% in 2018. Previously noted in electronic health record to be 30 to 35% therefore suspect it is resolved from this. (17) Tobacco use disorder: Once less encephalopathic will assess need of nicotine replacement products. (18) Trochanteric bursitis of left hip: Notable history of this requiring injection on last admission. Reassess once less encephalopathic. Pt had been on the schedule for OR for this prior to elective surgeries being held for COVID Pt was later laid off due to COVID and no longer has health insurance, so he has not been able to have ortho surgery (19) DVT prophylaxis: Avoid SCDs given minimal benefit and likely to make encephalopathy worse. Chemical prophylaxis deferred pending hemodynamic and hemoglobin stability. Admission and Anticipated Discharge Date Admission Date: May 11, 2020 Subjective Pt is more alert this afternoon than this AM. Able to answer some questions and is more arousable overall. He states that he has a lot of itching around his penis to his rectal region. tells me this is because he has not bathed in 5 months. He has been in his "man cave" during this time, only leaving to get more beer and not even able to do that recently. Pt started to have loss of continence of bowel recently. states that pt was confused but alert yesterday. Feels his jaundice is about the same today. Pt denies fever, SOB, chest pain, abd pain, n/v/c/d, LE pain or swelling. tells me that he has redness along his penis and moving around his entire gluteal cleft. They have been using A&D and vasoline at home, but not much help. He has a lot of itching and states he has rectal pain as well. Review of Systems Review of Systems: Pertinent positives and negatives reviewed in HPI--all others negative Physical Exam Constitutional: WD/WN, vitals as above Eyes: normal visual castle by confrontation and + anicteric sclerae Neck: normal visual inspection and trachea midline Respiratory: normal respiratory effort, lungs clear to auscultation Cardiovascular: Rate/Rhythm: regular rate and regular rhythm Gastrointestinal (Abdomen): Inspection/Auscultation: + abdomen distended Percussion/Palpation: abdomen soft; abdomen nontender Musculoskeletal: Head/Neck/Chest: normocephalic and head atraumatic negative for edema, peripheral pulses intact Skin: + jaundice and + nails discolored Neurologic: awake; not confused Speech / Cognition: normal speech Psychiatric: Orientation: alert (able to arouse with verbal stimulus, answers questions apporpriately), oriented to person and cooperative Results & Data Results & Data ([facility]) Vital Signs (Past 12 Hours) Vital Signs Temp Pulse Resp BP Pulse Ox 05/12/20 11:05 77 38 H 91/53 L 96 05/12/20 10:34 80 36 H 105/66 96 05/12/20 10:04 76 38 H 117/71 94 05/12/20 09:34 77 34 H 96/57 L 93 05/12/20 09:04 77 31 H 100/59 L 94 05/12/20 08:35 79 36 H 102/60 94 05/12/20 08:04 75 27 H 121/78 94 05/12/20 08:00 36.8 C 05/12/20 07:34 74 34 H 97/66 L 95 05/12/20 07:04 77 35 H 96/61 L 92 05/12/20 04:34 85 32 H 106/69 98 05/12/20 04:30 84 23 97 05/12/20 04:04 90 32 H 106/67 95 05/12/20 04:00 83 18 95 05/12/20 03:34 84 23 96/69 L 94 05/12/20 03:30 84 35 H 95 05/12/20 03:05 97 H 26 H 106/71 97 05/12/20 03:00 90 40 H 94 05/12/20 02:34 97 H 22 117/84 96 05/12/20 02:30 105 H 24 93 05/12/20 02:04 95 H 33 H 104/68 96 05/12/20 02:00 96 H 21 96 05/12/20 01:34 102 H 31 H 114/74 94 05/12/20 01:30 100 H 42 H 93 PG Care Time/CCT Total # of Minutes Spent Total Time Spent with Patient: Total time spent is greater than 50% in coordination of care (as documented) at patient's floor/unit and/or counseling patient: Coding Level of Care Code 62228 Subseq Hosp Care Lvl 3 Diagnoses Acute metabolic encephalopathy G93.41 Acute alcoholic hepatitis K70.10 Liver cirrhosis K74.60 Pneumonia J18.9 Alcohol withdrawal F10.239 Alcohol abuse F10.10 Acute hyponatremia E87.1 Jaundice R17 Depression F32.9 Hepatitis C B18.2 Hepatic coma status: without hepatic coma Viral hepatitis chronicity: chronic Hypertension I10 Hypertension type: unspecified Severe protein-calorie malnutrition E43 Nonspecific colitis K52.9 History of Clostridioides difficile colitis Z86.19 CAD (coronary artery disease) I25.10 Associated angina: without angina Coronary Disease-Associated Artery/Lesion type: unspecified vessel or lesion type [place] vs. transplanted heart: unspecified whether [place] or transplanted heart Ischemic cardiomyopathy I25.5 Tobacco use disorder F17.200 Trochanteric bursitis of left hip M70.62 DVT prophylaxis Z29.9 (1) CAD (coronary artery disease) Associated angina: without angina Coronary Disease-Associated Artery/Lesion type: unspecified vessel or lesion type [place] vs. transplanted heart: unspecified whether [place] or transplanted heart Qualified Code(s): I25.10 - At herosclerotic heart disease of [place] coronary artery without angina pectoris (2) Hepatitis C Hepatic coma status: without hepatic coma Viral hepatitis chronicity: chronic Qualified Code(s): B18.2 - Chronic viral hepatitis C (3) Hypertension Hypertension type: unspecified Qualified Code(s): I10 - Essential (primary) hypertension
[2020-05-12] MEDS ORDERED: GABAPENTIN 600 MG TAB PO SCH (14:00)
[2020-05-12] MEDS: NICOTINE 21 MG/24 HR TDSY TD SCH (14:07)
[2020-05-12] MEDS: AZITHROMYCIN 500 MG in DEXTROSE 5% 250 ML IV SCH (14:07)
--- NOTE | 2020-05-12 14:50 | Billing Data ---
Date of Service May 12, 2020 Coding Level of Care Code 73410 Subseq Hosp Care Lvl 3
[2020-05-12] MEDS ORDERED: AZITHROMYCIN 250 MG in DEXTROSE 5% 250 ML IV SCH (15:00)
[2020-05-12 15:49] LABS: BUN Creatinine Ratio 10.5 (10-20); Calcium 6.8 mg/dl (8.5-10.1); Creatinine Clr Calc Pharmacy 127.3 ml/min; Est GFR (African American) 121.4; Est GFR (Non-African American) 104.8
[2020-05-12 15:50] LABS: Potassium 3.2 mmol/L (3.5-5.1)
[2020-05-12] MEDS ORDERED: POTASSIUM PHOSPHATE 21 MMOL in DEXTROSE 5% 500 ML IV ONE (17:00)
[2020-05-12] MEDS: NYSTATIN OINT 15 GM TUBE EXT SCH ×2 (17:20→20:38)
[2020-05-12] MEDS: LORazepam 2 MG/4 ML VIAL IV PRN ×3 (17:52→23:50)
[2020-05-12 21:59] LABS: BUN Creatinine Ratio 9.8 (10-20); Calcium 7.5 mg/dl (8.5-10.1); Est GFR (African American) 123.6; Est GFR (Non-African American) 106.7; Potassium 4.5 mmol/L (3.5-5.1)
[2020-05-13] MEDS: LORazepam 2 MG/4 ML VIAL IV PRN ×7 (01:53→11:53)
[2020-05-13 04:34] LABS: Hematocrit (blood only) 30.2 % (42-52); Hemoglobin 10.9 g/dL (14.0-18.0); Mean Corpuscular Hemoglobin 37.6 pg (25-34); Mean Corpuscular Hgb Conc 36.1 g/dL (32-36); Mean Corpuscular Volume 104.1 fL (80-100); Nucleated RBC # (auto) 0.06 K/uL (0-0); Nucleated RBC % (auto) 0.8 %; RDW Coefficient of Variation 15.1 % (11.5-14.5); White Blood Count 7.75 K/uL (4.8-10.8)
[2020-05-13 04:45] LABS: INR 1.7 (0.9-1.1); Prothrombin Time 17.2 Seconds (9.0-12.0)
[2020-05-13 05:07] LABS: Albumin Level 1.4 gm/dl (3.4-5.0); BUN Creatinine Ratio 9.7 (10-20); Bilirubin,Total 13.2 mg/dl (0.2-1); Calcium 7.4 mg/dl (8.5-10.1); Est GFR (African American) 135.1; Est GFR (Non-African American) 116.5; Total Protein 4.8 gm/dl (6.4-8.2)
[2020-05-13 05:09] LABS: Phosphorus 1.4 mg/dl (2.5-4.9)
[2020-05-13 06:04] LABS: Mean Platelet Volume 10.8 fL (7.4-10.4); Platelet Count 76 K/uL (130-400)
[2020-05-13 06:21] LABS: Magnesium 1.7 mg/dl (1.8-2.4); Potassium 2.6 mmol/L (3.5-5.1)
[2020-05-13 06:24] LABS: Basophils # (auto) 0.01 K/uL (0-0.2); Basophils % (auto) 0.1 %; Eosinophils # (auto) 0.04 K/uL (0-0.5); Eosinophils % (auto) 0.5 %; Immature Granulocytes # (auto) 0.06 K/uL (0.00-0.02); Immature Granulocytes % (auto) 0.8 %; Lymphocytes # (auto) 0.68 K/uL (1.2-3.4); Lymphocytes % (auto) 8.8 %; Monocytes # (auto) 0.58 K/uL (0.11-0.59); Monocytes % (auto) 7.5 %; Neutrophils # (auto) 6.38 K/uL (1.4-6.5); Neutrophils % (auto) 82.3 %; Pappenheimer Bodies 1+; Polychromasia 1+
[2020-05-13] MEDS ORDERED: POTASSIUM PHOS 3 MMOL/1 ML INFUSION IV STA ×3 (06:41→21:54)
[2020-05-13] MEDS: POTASSIUM CHLORIDE / WTR 10 MEQ/100 ML PLCT IV SCH ×5 (06:49→22:24)
[2020-05-13] MEDS ORDERED: MAGNESIUM SULFATE / D5W 1 GM/100 ML BAG IV ONE (07:15)
[2020-05-13] MEDS ORDERED: POTASSIUM PHOSPHATE 24 MMOL in SODIUM CHLORIDE 0.9% 500 ML IV ONE ×2 (07:30→22:15)
[2020-05-13 07:57] LABS: Bilirubin Direct 10.7 mg/dl (0-0.2)
--- NOTE | 2020-05-13 08:18 | Critical Care Progress Note ---
Date of Service May 13, 2020 Assessment & Plan Admission and Anticipated Discharge Date Admission Date: May 11, 2020 Reason Critically Ill: 59-year-old male here with a pMHx. significant for alcoholism, cirrhosis, and hepatitis C, who presented with AMS and dyspnea and who was under ICU care for airway monitoring although appears to be stable from this standpoint. Neuro - [facility] ICU: positive Sedation: - AMS on admission, currently garbled speech, not oriented to place or time this is potentially multifactorial from hyponatremia, medication, and ETOH - high dose Thiamine for 5 days, for concern of WE also getting IV folic acid - Ativan ordered per withdrawal protocol, last given this morning 2mg, 10 mg over the last 24 hours - when patient is taking orals consider switching to Librium or Valium - most recent AWSS 8,9 score - ammonia less than 10 X2 Cardiac - - Hx. of PCI in 2017 with JEFFREY placed, was on dual antiplatelet with ASA Plavix with plan for one year of Plavix and ASA indefinitely, currently holding ASA - Tachycardic likely 2/2 alcohol withdrawal, EKG w/ sinus tachycardia, current HR 111 - prior history of ischemic cardiomyopathy: prior ECHO from September 2018 with EF 55-60%, grade 1 diastolic disfunction and nl. atrial size - troponin 0.025, no ST elevations on EKG - holding lisinopril and Carvedilol in the setting of low blood pressure Respiratory - - patient presented with dyspnea, concern for pneumonia on CT with KIANNA c onsolidation and LLL ground glass opacities, started on Zosyn in the ED - procalcitonin elevated initially, down trending - deescalated antibiotics to: Azithromycin, Rocephin; consider 5 day course - ABG with findings of: primary respiratory alkalosis, chronic with secondary metabolic acidosis and additional non-gap metabolic acidosis - Oz- herrera respirations potentially 2/2 encephalopathy GI - - Current MELD 27 initial less than 32 - GI consulted for cirrhosis in the setting of ETOH abuse and hepatitis C; labs to further evaluate his liver are pending - LFT's improved to AST 154 and ALT 92, continue to monitor - initial concern for GIB, continue to follow H&H (stable), BP, HR, UOP - Protonix IV BID - NPO due to altered mental status, continue to evaluate RENAL/LYTES - - Hypervolemic Hyponatremia Na 117 initially improved to 128 this morning with a rise of 7 over the last 24 hours and 2 over the last 6 hours - ensure max. increase of sodium is 8 over 24 hours - Lasix 20 mg IV given this morning, consider Aldactone when taking oral medication - BMP Q6H Hypokalemia likely 2/2 poor dietary intake, and Lasix, currently 2.6 - replace and monitor Hypophosphatemia currently 1.4 - replace and monitor Hypomagnesemia currently 1.7 - replace and monitor - - [place] in place to follow UOP closely (improved) ENDO - - no concerns right now HEME - - Stable H&H. 10.9 & 30.2, continue to follow - thrombocytopenia 76 likely from liver disease ID - - concern for PNA on CT with L>R ground glass opacities - pt. has been afebrile during this admission - MRSA nasal swab negative - initially ordered Vancomycin, Zosyn - transition to Azithromycin, Rocephin, QTc: 438 5 day course - cultures pending - elevated procalcitonin down trending currently 0.71 INTEGUMENTARY - - no acute concerns PSYCH - - patient history concerning for severe depression and would likely benefit from outpatient management LINES/IV ACCESS - - PIV intact., [place] in place DVT PROPHYLAXIS - - SCD's Thank you for allowing us to be part of this patient's care. Please refer to Dr. Cooley's documentation for any further recommendations. Supervising Physician Co-Signing Physician Notes Patient seen and examined. Discussed on multidisciplinary rounds as well as with the family practice resident and the critical care bedside nurse. EMR and imaging reviewed. Agree with his assessment and plan as noted Patient remains encephalopathic which is likely toxic metabolic. He continues to require frequent doses of Ativan which is likely contributing to some of his encephalopathy. He has been hemodynamically stable and is diuresing. Appreciate GI consultants input. At this point time the patient appears appropriate to transfer out of the intensive care unit with continued close medical follow-up. We will sign off once he leaves the ICU. Feel free to contact us if we can be of additional pulmonary critical care assistance. Subjective More awake this morning. Mr. Pinzon is still not oriented to place or time. His speech is garbled. He had 2 bowel movements overnight neither contained black or bloody stool. He has had withdrawal scoring or 8 and 9, with tachycardia and tremor requiring 2 mg Ativan this morning. He explained to me that he had pain in his rectum. Review of Systems Review of Systems: Unobtainable due to cognitive status Physical Exam Constitutional: + obese and + altered mental status ENMT: external ear and nose normal, oropharynx normal Neck: normal visual inspection Respiratory: no respiratory distress and does not use accessory muscles Cardiovascular: Extremities: + edema - tachycardia, no murmur appreciated Gastrointestinal (Abdomen): - soft, nTTP, +bowel sounds Skin: - jaundice Psychiatric: - oriented to person, not place or time Results & Data Results & Data ([facility]) Vital Signs (Past 12 Hours) Vital Signs Temp Pulse Pulse Resp BP BP Pulse Ox 05/13/20 07:43 36.7 C 115 H 115 H 37 H 103/75 94 05/13/20 05:44 111 H 39 H 121/73 94 05/13/20 04:44 127 H 22 106/71 92 05/13/20 03:44 36.6 C 119 H 21 103/76 97 05/13/20 02:44 114 H 36 H 115/82 95 05/13/20 01:45 158/88 H 98 05/13/20 00:45 117 H 35 H 105/88 97 05/13/20 00:00 106 H 05/12/20 23:44 36.6 C 123/90 95 05/12/20 22:44 117 H 116/81 05/12/20 21:00 108 H CBC Results Results Complete Blood Count Results: RBC 2.90 M/uL (4.7-6.1) L 05/13/20 WBC 7.75 K/uL (4.8-10.8) 05/13/20 Hgb 10.9 g/dL (14.0-18.0) L 05/13/20 Hct 30.2 % (42-52) L 05/13/20 Plt Count 76 K/uL (130-400) L 05/13/20 Chemistry (BMP) Results BMP Results: Sodium 128 mmol/L (136-145) L 05/13/20 Potassium 2.6 mmol/L (3.5-5.1) L 05/13/20 Chloride 94 mmol/L (98-107) L 05/13/20 BUN 5 mg/dl (7-18) L 05/13/20 Creatinine 0.54 mg/dl (0.6-1.4) L 05/13/20 Glucose 100 mg/dl (70-99) H 05/13/20 Resident Activity Tracking Resident Involvement: Resident Care Provided Care Provided: Adult [facility] Medicine
[2020-05-13] MEDS ORDERED: FUROSEMIDE 20 MG in SYRINGE 0 ML IV ONE (09:15)
[2020-05-13] MEDS: PANTOprazole 40 MG in SYRINGE 0 ML IV SCH ×2 (09:21→22:10)
[2020-05-13] MEDS: FOLIC ACID 1 MG in SYRINGE 9.8 ML IV SCH (09:22)
[2020-05-13] MEDS: NYSTATIN OINT 15 GM TUBE EXT SCH ×4 (09:22→22:27)
[2020-05-13] MEDS: NICOTINE 21 MG/24 HR TDSY TD SCH (09:22)
--- NOTE | 2020-05-13 09:23 | Gastroenterology Progress Note ---
Date of Service May 13, 2020 Assessment & Plan (1) Alcohol abuse: (2) Liver cirrhosis: (3) Acute hyponatremia: (4) Nonspecific colitis: Pt is a 59 y/o male, who presented with SOB, chills symptoms ? black stools prior to admission but no BMs or other signs of GI bleeding since admitted. COVID 19 negative. He has hx of heavy ETOH abuse, on evaluation noted to have likely pneumonia. Abd imaging showed fatty and cirrhotic appearing liver w small volume ascites, evidence of portal HTN, varices, non specific colitis. MELD 28, Maddreys Discriminant Function Score 22. On exam he's very hard to arouse today, received sedatives for ETOH withdrawal symptoms last night. RN report pt had liquid yellowish stools x [address] stable. INR and Tbili increasing. - Antibx coverage for suspected pneumonia - Complete N-Acetylcysteine protocol - Kenneth's Discriminant Function score is 36 today, add Pentoxifylline after NAC protocol completed - Monitor closely for s/s of GI bleeding - Monitor closely mental status, changes in coag studies and renal function daily. Add vit K today - Electrolyte correction per primary team; currently on K, Mg, PO4, FA, Thiamine IV supplements - Unable to obtain MRCP, pt receiving sedatives, unable to follow instructions for test - Cirrhosis workup: obtain hepatitis, viral serologies, AIH serologies. HCV Ab prelim +, f/u RNA quant - Check Cdiff, stool cx if diarrhea present Admission and Anticipated Discharge Date Admission Date: May 11, 2020 Supervising Physician Co-Signing Physician Notes I have seen and examined the patient and discussed the management with DENNYS Ruiz. Somewhat arousable today. Intermittently tachycardic likely from continued withdrawl. Slight bump in inr and tb. Vitamin K is reasonable today. Alcoholic hepatitis superimposed on cirrhosis- meld [place] 30 but falsely elevated. Treating alcohol hepatitis with NAC protocol followed by [place] given concerns for pna (avoiding steroids for this reason). Continue treatment for pna. Continued alcohol withdrawal protocol. Pending his clinical course of this admission, alcohol rehab is strongly encouraged on recovery from current admission. Subjective Pt still somnolent, received Ativan for ETOH withdrawals overnight. Opens eyes to sternal rub. Not following commands Review of Systems Review of Systems: Unobtainable due to reduced consciousness Physical Exam Constitutional: + ill appearing ENMT: external ear and nose normal, oropharynx normal Respiratory: + respiratory distress, + uses accessory muscles and + tachypneic Auscultation: + diminished lung sounds and + rales Cardiovascular: Rate/Rhythm: + tachycardic Heart Sounds: no murmur Gastrointestinal (Abdomen): Inspection/Auscultation: + hypoactive bowel sounds Skin: no rashes, warm and dry + jaundice Psychiatric: somnolent, opens eyes to sternal rub but not verbalizing or following commands Lymphatic: no lymphedema Results & Data ([facility]) Vital Signs (Past 12 Hours) Vital Signs Temp Pulse Pulse Resp BP BP Pulse Ox 05/13/20 07:43 36.7 C 115 H 115 H 37 H 103/75 94 05/13/20 05:44 111 H 39 H 121/73 94 05/13/20 04:44 127 H 22 106/71 92 05/13/20 03:44 36.6 C 119 H 21 103/76 97 05/13/20 02:44 114 H 36 H 115/82 95 05/13/20 01:45 158/88 H 98 05/13/20 00:45 117 H 35 H 105/88 97 05/13/20 00:00 106 H 05/12/20 23:44 36.6 C 123/90 95 05/12/20 22:44 117 H 116/81
[2020-05-13] MEDS: cefTRIAXone SODIUM 2,000 MG in DEXTROSE 5% 50 ML IV SCH (09:56)
[2020-05-13] MEDS: THIAMINE HCL 500 MG in SODIUM CHLORIDE 0.9% 50 ML IV SCH ×3 (09:57→22:23)
[2020-05-13] MEDS ORDERED: PHYTONADIONE 5 MG in SODIUM CHLORIDE 0.9% 50 ML IV ONE (13:30)
--- NOTE | 2020-05-13 14:12 | Billing Data ---
Date of Service May 13, 2020 Coding Level of Care Code 27134 Subseq Hosp Care Lvl 3
[2020-05-13 14:16] LABS: EBV Nuclear Ag Antibody <18.00 U/mL; EBV Virus Capsid Ag IgG Ab >750.00 U/mL
--- NOTE | 2020-05-13 14:46 | Hospitalist Progress Note ---
Date of Service May 13, 2020 Assessment & Plan (1) Acute metabolic encephalopathy: Suspect secondary to alcohol withdrawal, alternatively due to lorazepam use. Thiamine 500mg IV TID to prevent Wernicke's encephalopathy. Ammonia levels are neg x2 Hyponatremia possibly also contributing (management as below). Utox neg Lactic acid improved s/p ED interventions (2) Acute alcoholic hepatitis: MELD score 29, 19.6% 3 month mortality. Maddrey discriminant function 30 - therefore no steroids recommended at this time. Dee alcoholic hepatitis score 7 - (scores < 9, better 28 and 84 day survival). Monitor LFTs and scores for progression and need for prednisolone. GI planning for NAC protocol and MRCP Unable to obtain MRCP at this time due to pt's inability to follow commands Bilirubin increased today, monitor with IVF (3) Liver cirrhosis: No prior biopsy but high likelihood given varices seen on imaging and both hepatitis C and alcohol use as potential causes. Will need outpatient GI follow up. INR increased to 1.7 today, GI planning for vit K Hep C + on prelim testing (4) Pneumonia: Vancomycin, Zosyn, azithromycin given in ER. Procalcitonin and WBC elevated therefore will continue broad-spectrum antibiotics especially covering aspiration given high risk events with alcohol use. MRSA nasal swab - if negative can discontinue vancomycin as despite alcohol history CT appearance more of pneumonitis/viral pneumonia than MRSA. (5) Alcohol withdrawal: Ativan 2 to 3 mg IV given in ER Previously placed on gabapentin protocol with Ativan PRN with good effect. Therefore will prescribe the same again unless needing frequent doses of Ativan can add WESLY chlordiazepoxide. (6) Alcohol abuse: Consult continuous pillowcase cutter to assist with alcohol rehabilitation once patient is through withdrawal states that pt has not left his "[employer]" for 5 months due to depression and anxiety related to COVID and subsequent job loss and pain issues (7) Acute hyponatremia: Severe with sodium 117 on admission, now improving Suspected secondary to beer potomania and should resolve with alcohol cessation. Also with hypoK and hypoPhos (8) Jaundice: Bilirubin 13.7 secondary to presumed alcoholic hepatitis. Monitor LFTs (9) Depression: Seems likely related to COVID issues, job loss, loss of insurance, unable to get hip surgery Will need assessed for rx tx once alcohol issues are more stable (10) Hepatitis C: Chronic active. Follow-up with gastroenterology. No need for acute viral load. (11) Hypertension: Hypotensive on admission likely secondary to alcohol withdrawal. He is not taking his antihypertensives at home. We will continue to monitor blood pressure throughout the day to consider starting carvedilol as blood pressure allows. Hold lisinopril 40 mg p.o. daily (12) Severe protein-calorie malnutrition: Consult dietary once less encephalopathic and can eat and drink. (13) Nonspecific colitis: Suspect related to alcohol and opiate use/withdrawal. Concern for possible melena from history. Will continue on IV pantoprazole drip pending repeat H&H. Collect stool for FOB and stool culture. If watery will repeat his C. difficile however he appears to be a carrier of this and no indication unless his diarrhea is watery. 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 Although I am unclear of his indication for dual antiplatelet therapy. Platelet count 109 on admission, monitor Hold statin due to elevated LFTs Carvedilol as above (16) Ischemic cardiomyopathy: Appears to be resolved. LVEF 55 to 60% in 2018. Previously noted in electronic health record to be 30 to 35% therefore suspect it is resolved from this. (17) Tobacco use disorder: Once less encephalopathic will assess need of nicotine replacement products. (18) Trochanteric bursitis of left hip: Notable history of this requiring injection on last admission. Reassess once less encephalopathic. Pt had been on the schedule for OR for this prior to elective surgeries being held for COVID, cx due to COVID Pt was later laid off due to COVID and no longer has health insurance, so he has not been able to have ortho surgery (19) DVT prophylaxis: Avoid SCDs given minimal benefit and likely to make encephalopathy worse. Chemical prophylaxis deferred pending hemodynamic and hemoglobin stability. Admission and Anticipated Discharge Date Admission Date: May 11, 2020 Subjective Pt has been more sedated today. Shakes his head no to pain. Not able to get much more out of him. No new concerns per nursing. Called by ICU internal controls consultant and advised pt is for transfer out of ICU today. Review of Systems Review of Systems: Pertinent positives and negatives reviewed in HPI--all others negative Physical Exam Constitutional: WD/WN, vitals as above Eyes: normal visual castle by confrontation and + anicteric sclerae Neck: normal visual inspection and trachea midline Respiratory: normal respiratory effort, lungs clear to auscultation Cardiovascular: Rate/Rhythm: regular rate and regular rhythm Gastrointestinal (Abdomen): Inspection/Auscultation: + abdomen distended Percussion/Palpation: abdomen soft; abdomen nontender Musculoskeletal: Head/Neck/Chest: normocephalic and head atraumatic Skin: + jaundice and + nails discolored Neurologic: awake and + confused Speech / Cognition: normal speech Psychiatric: Orientation: alert (able to arouse with verbal stimulus, less interactive) and oriented to person Results & Data Results & Data ([facility]) Vital Signs (Past 12 Hours) Vital Signs Temp Pulse Pulse Resp BP BP Pulse Ox 05/13/20 12:00 40 H 05/13/20 11:28 36.7 C 116 H 20 102/51 L 96 05/13/20 07:43 36.7 C 115 H 115 H 37 H 103/75 94 05/13/20 05:44 111 H 39 H 121/73 94 05/13/20 04:44 127 H 22 106/71 92 05/13/20 03:44 36.6 C 119 H 21 103/76 97 05/13/20 02:44 114 H 36 H 115/82 95 PG Care Time/CCT Total # of Minutes Spent Total Time Spent with Patient: Total time spent is greater than 50% in coordination of care (as documented) at patient's floor/unit and/or counseling patient: Coding Level of Care Code 48037 Subseq Hosp Care Lvl 3 Diagnoses Acute metabolic encephalopathy G93.41 Acute alcoholic hepatitis K70.10 Liver cirrhosis K74.60 Pneumonia J18.9 Alcohol withdrawal F10.239 Alcohol abuse F10.10 Acute hyponatremia E87.1 Jaundice R17 Depression F32.9 Hepatitis C B18.2 Viral hepatitis chronicity: chronic Hepatic coma status: without hepatic coma Hypertension I10 Hypertension type: unspecified Severe protein-calorie malnutrition E43 Nonspecific colitis K52.9 History of Clostridioides difficile colitis Z86.19 CAD (coronary artery disease) I25.10 Associated angina: without angina Coronary Disease-Associated Artery/Lesion type: unspecified vessel or lesion type [place] vs. transplanted heart: unspecified whether [place] or transplanted heart Ischemic cardiomyopathy I25.5 Tobacco use disorder F17.200 Trochanteric bursitis of left hip M70.62 DVT prophylaxis Z29.9 (1) Hepatitis C Viral hepatitis chronicity: chronic Hepatic coma status: without hepatic coma Qualified Code(s): B18.2 - Chronic viral hepatitis C (2) Hypertension Hypertension type: unspecified Qualified Code(s): I10 - Essential (primary) hypertension (3) CAD (coronary artery disease) Associated angina: without angina Coronary Disease-Associated Artery/Lesion type: unspecified vessel or lesion type [place] vs. transplanted heart: unspecified whether [place] or transplanted heart Qualified Code(s): I25.10 - Atherosclerotic heart disease of [place] coronary artery without angina pectoris
[2020-05-13 15:01] LABS: Albumin 2.1 g/dL (3.8-4.8); Alpha 1 Antitrypsin 268 mg/dL (83-199); Alpha 1 Globulin 0.4 g/dL (0.2-0.3); Alpha 2 Globulin 0.6 g/dL (0.5-0.9); Anti Nuclear Antibody Screen NEGATIVE (NEGATIVE); Beta-1-Globulin 0.2 g/dL (0.4-0.6); Beta-2-Globulin 0.5 g/dL (0.2-0.5); Ceruloplasmin 52 mg/dL (18-36); Gamma Globulin 0.7 g/dL (0.8-1.7); Monoclonal Protein Band 1 DNR g/dL (NONE DETECTED); Monoclonal Protein Band 2 DNR g/dL (NONE DETECTED); Monoclonal Protein Band 3 DNR g/dL (NONE DETECTED); Smooth Muscle Antibody NEGATIVE (NEGATIVE); Total Protein 4.4 g/dL (6.1-8.1)
[2020-05-13] MEDS: AZITHROMYCIN 500 MG in DEXTROSE 5% 250 ML IV SCH (15:30)
[2020-05-13] MEDS ORDERED: GABAPENTIN 600 MG TAB PO SCH (18:00)
--- NOTE | 2020-05-13 20:34 | Critical Care Progress Note ---
Date of Service May 13, 2020 Assessment & Plan (1) Admitted to intensive care unit: Reason Critically Ill: 59-year-old male presenting with dyspnea and altered mental status with associated alcohol withdrawal, acute liver failure in the setting of alcoholism, requiring close airway and hemodynamic monitoring as well as medication intervention for alcohol withdrawal. Development of profound hypotension requiring intervention and close hemodynamic monitoring. NEURO - * CAM ICU: Unable to assess secondary to current mental status. * Altered mental status: * Likely multifactorial in the hyponatremic patient with concerns for alcohol withdrawal. * Improved hyponatremia back to near baseline at this time. * Ammonia level within normal limits. * Aggressive thiamine/folate replacement. * AWSS scale w/ benzodiazepines as needed. * Seizure precautions. CARDIAC/VASCULAR - * Hypotension: * Of questionable source at this time. * May likely be related to hypovolemia and hypoalbuminemia. * Treated aggressively with albumin initially. Minimal response in improvement of blood pressure. * Instituted vasopressors for blood pressure support. * Place arterial line for close hemodynamic monitoring. * Wean down pressors as tolerated. * Will add scheduled dosing of albumin. * Cautious with fluids resuscitation secondary to recent hyponatremia and trending in the right direction. * Tachycardia: * Has improved. * Likely multifactorial in the setting of EtOH withdrawal, electrolyte derangement, encephalopathy, sepsis. * Judicious use of IVF as patient presented w/ Na of 117. * Consider volume expansion w/ colloid replacement if needed. * EKG: Sinus Tachycardia @125bpm. No ST/T-wave changes. QTc 496 ms. * Monitor on telemetry. RESPIRATORY - * Dyspnea: * Appears to have tachypneic respiratory pattern at baseline w/o hypoxia. * Currently on Zosyn - dual coverage for PNA/SBP. * Repeat ABG appears unchanged from prior. * Monitor closely for need for invasive airway intervention. Low threshold for intubation for airway protection in the EtOH patient w/ AMS. GI/NUTRITION - * ??Melanotic stools/GIB: * No profound drop in H&H. Agree with changing to Protonix BID boluses. * Trend H&H. * Varices noted on CTA. * No reported hematemesis. * Scant ascites noted on CT. * Will cover for SBP. * Appreciate GI consultation. * Alcoholic Hepatitis w/ Acute Hepatic Failure: * GI following. RENAL/LYTES - * Hyponatremia: * Likely 2/2 EtOH. * Has trended upwards appropriately. * Hypokalemia: * Related to EtOH and limited diet. * Will replace aggressively. - * [place] in place - Strict I&Os. ENDO - * No h/o DM or Thyroid Dz * BSGs per unit protocol. ISS --> gtt per unit policy. HEME - * ??GIB: * Currently Type/Screened. * Elevated INR: * In the setting of acute hepatic failure. * Will treat w/ 10 mg Vitamin K per Day x3 days. ID - * Sepsis: * Improved from presentation. * Currently on Azithromycin/Rocephin. * Blood cultures on 05/11 w/o growth. * No fevers. LINES/IV ACCESS - * PIVs x4 * [place] * RIGHT Radial A-line DVT PROPHYLAXIS - * Hold on chemoprophylaxis in the ??GIB w/ INR of 1.5 * SCDs CODE STATUS - * Remains full code at this time. * Spoke with the patient's , Tatiana ([phone]) @[phone]. Had extensive conversation regarding change in condition. She provides verbal consent for A- line, Central line, and Intubation if necessary. She requests call after any escalation in care. I have personally spent 45 minutes of critical care time in the direct management of this patient. This is a life/limb threatening event. This includes time spent evaluating patient, direct bedside care, chart review, placing orders, interpretation of diagnostic studies, discussion with consultants, patient, and family members, as well as other required patient management activities. This time is exclusive of all separately billable procedures, and teaching time and separate from and in addition to any other critical care service time. Thank you for allowing us to participate in the care of this patient. Please refer to my attending physician's documentation for any further recommendations. (2) Acute dyspnea: (3) Alcohol withdrawal: (4) Pneumonia: (5) Liver cirrhosis: (6) Sepsis: (7) AMS (altered mental status): (8) Nonspecific colitis: (9) Severe protein-calorie malnutrition: (10) Acute hyponatremia: (11) Alcohol abuse: (12) Jaundice: (13) Acute alcoholic hepatitis: (14) Tobacco use disorder: Admission and Anticipated Discharge Date Admission Date: May 11, 2020 Subjective Was contacted by hospitalist staff as the patient was noted to be profoundly hypotensive. I am familiar with this patient from recent hospitalization. On evaluation at bedside, the patient was with systolic blood pressures in the 60s. Orders were placed at bedside for albumin. Patient is less responsive this evening than he was last. He is unable to contribute to historical information. Review of Systems Review of Systems: Unobtainable due to cognitive status Physical Exam Physical Exam: VITAL SIGNS - Vital signs and nursing notes were reviewed. GENERAL - 59-year-old male appearing his stated age who is in no acute distress. Somnolent. Agitated with stimulation. Jaundiced appearing. SKIN - Icteric. HEAD - NC/AT. EYES - PERRL with EOMI bilaterally. Scleral icterus. EARS - No deformities of external structures noted on gross examination bilaterally. NOSE - Midline and without cyanosis. MOUTH/OROPHARYNX - Without perioral cyanosis. Buccal mucosa pink and dry. NECK - Neck with FROM. Supple to palpation. No lymphadenopathy noted. No nuchal rigidity. LUNGS - Chest wall symmetric without accessory muscle use, intercostals retractions, or central cyanosis. Normal vesicular breath sounds CTA B/L. No wheezes, rales, or rhonchi appreciated. CARDIAC - RRR with S1/S2. No murmur, rubs, or gallops appreciated. ABDOMEN - Abdominal contour obese without pulsations or visible masses. BS normoactive all four quadrants. No tenderness, palpable masses, hepatosplenomegaly, or significant ascites noted. EXTREMITIES - No clubbing or peripheral cyanosis. No pretibial edema present. +3/5 radial and dorsalis pedis pulses palpated throughout. +4/5 strength noted in UE/LE bilaterally. NEUROLOGIC - Cranial nerves II through XII grossly intact. No focal neurological deficits appreciated. Unable to fully obtain exam 2/2 AMS. Results & Data Results & Data ([facility]) Vital Signs (Past 12 Hours) Vital Signs Temp Pulse Resp BP Pulse Ox 05/13/20 20:33 117 H 48 H 73/52 L 95 05/13/20 19:05 37.7 C H 119 H 28 H 89/51 L 92 05/13/20 15:08 116/82 05/13/20 14:53 37.1 C 122 H 33 H 81/57 L 93 05/13/20 12:00 40 H 05/13/20 11:28 36.7 C 116 H 20 102/51 L 96 Coding Level of Care Code Critical Care 1st 30-74 mins Diagnoses Admitted to intensive care unit Z78.9 Acute dyspnea R06.00 Alcohol withdrawal F10.239 Pneumonia J18.9 Liver cirrhosis K74.60 Sepsis A41.9 AMS (altered mental status) R41.82 Nonspecific colitis K52.9 Severe protein-calorie malnutrition E43 Acute hyponatremia E87.1 Alcohol abuse F10.10 Jaundice R17 Acute alcoholic hepatitis K70.10 Tobacco use disorder F17.200
[2020-05-13] MEDS: ALBUMIN 25% 50 ML IV SCH ×2 (20:47→21:20)
[2020-05-13 20:52] LABS: Hematocrit (blood only) 34.1 % (42-52); Hemoglobin 11.8 g/dL (14.0-18.0)
[2020-05-13] MEDS ORDERED: STAT IV Infusion **Titration per Protocol STA (20:59)
[2020-05-13] MEDS ORDERED: NOREPINEPHRINE BIT INJ 8 MG in DEXTROSE 5% 500 ML IV SCH (21:00)
[2020-05-13 21:15] LABS: BUN Creatinine Ratio 6.1 (10-20); Calcium 7.4 mg/dl (8.5-10.1); Creatinine Clr Calc Pharmacy 103.9 ml/min; Est GFR (African American) 111.6; Est GFR (Non-African American) 96.3; Magnesium 1.8 mg/dl (1.8-2.4); Phosphorus 1.7 mg/dl (2.5-4.9); Potassium 3.2 mmol/L (3.5-5.1)
--- NOTE | 2020-05-13 21:26 | Procedure Note ---
Procedure Note Date of Service May 13, 2020 Procedure: Arterial Line Placement Attending: Dr. Cooley APC: Rafael Barber PA-C Indication: Monitoring on Pressors Anesthesia: Lidocaine 1% Emergent consent implied in the setting of deteriorating blood pressure with inability to sustain accurate NIBP reads and need for initiation of vasopressive support. A time-out was completed verifying correct patient, procedure, site, positioning, and implant(s) or special equipment if applicable. Allens test was performed to ensure adequate perfusion. Patients RIGHT wrist was prepped and draped in the usual sterile fashion. Ultrasound guidance was used to aid needle placement. A 20g Arrow arterial line was introduced into the RIGHT Radial ar mikaela. Catheter was threaded, and the needle was removed with appropriate blood return. Good waveform was observed. The patient tolerated the procedure well. Confirmation of placement with ultrasound. Blood Loss: Minimal Complications: None Procedural Ultrasound Guidance: Procedure Date: 05/13/2020 Indication: Pressors, ABGs, Poor NIBP reading Attending: Dr. Cooley APC: Rafael Barber PA-C Artery Identified: YES Line confirmed in Artery with ultrasound: YES Complications: NONE Patient tolerated procedure: WELL Coding CPT Codes Tubes, Drains, and Vasc Access - Tubes, Drains, and Vasc Access: [id number] Place Catheter In Artery ([id number]) [facility] [place] Codes (Ch[place]) Tubes, Drains, and Vasc Access Procedure 1: Tubes, Drains, and Vasc Access: [id number] Place Catheter In Artery
[2020-05-13 21:35] LABS: iSTAT Allen Test Pass; iSTAT Art Bld Gas pCO2 Correct 27 mmHg (35-46); iSTAT Art Bld Gas pH Corrected 7.474 (7.35-7.45); iSTAT Arterial Blood Gas HCO3 20 meg/L (19-24); iSTAT Arterial Blood Gas pCO2 26 mmHg (35-46); iSTAT Arterial Blood Gas pH 7.49 (7.35-7.45); iSTAT Arterial Blood Gas pO2 71 mmHg (80-95); iSTAT Arterial Blood Gas pO2 C 75; iSTAT Carbon Dioxide 20 mmol/L (24-31); iSTAT Hematocrit 36 % (42-52); iSTAT Hemoglobin 12.2 g/dl (14.0-18.0); iSTAT Potassium 3.1 mmol/L (3.3-5.0); iSTAT Site Art Line; iSTAT Sodium 129 mmol/L (135-144)
[2020-05-13] MEDS: PENTOXIFYLLINE 400MG EXT REL TAB PO SCH (22:04)
[2020-05-14] MEDS: POTASSIUM CHLORIDE / WTR 10 MEQ/100 ML PLCT IV SCH ×5 (00:12→07:56)
[2020-05-14] MEDS: ALBUMIN 25% 50 ML IV SCH ×2 (00:17→05:47)
[2020-05-14 04:20] LABS: Hematocrit (blood only) 28.8 % (42-52); Hemoglobin 10.2 g/dL (14.0-18.0); Mean Corpuscular Hemoglobin 38.1 pg (25-34); Mean Corpuscular Hgb Conc 35.4 g/dL (32-36); Mean Corpuscular Volume 107.5 fL (80-100); RDW Coefficient of Variation 15.6 % (11.5-14.5); RDW Standard Deviation 59.7 fL (36.4-46.3); Red Blood Count 2.68 M/uL (4.7-6.1); White Blood Count 8.39 K/uL (4.8-10.8)
[2020-05-14 04:29] LABS: Mean Platelet Volume 10.8 fL (7.4-10.4); Platelet Count 82 K/uL (130-400)
[2020-05-14 04:39] LABS: INR 1.5 (0.9-1.1); Prothrombin Time 15.7 Seconds (9.0-12.0)
[2020-05-14 04:48] LABS: Albumin Level 1.8 gm/dl (3.4-5.0); BUN Creatinine Ratio 6.6 (10-20); Bilirubin,Total 14.4 mg/dl (0.2-1); Calcium 7.2 mg/dl (8.5-10.1); Creatinine Clr Calc Pharmacy 129.4 ml/min; Est GFR (African American) 122.1; Est GFR (Non-African American) 105.4; Magnesium 1.6 mg/dl (1.8-2.4); Phosphorus 2.8 mg/dl (2.5-4.9); Potassium 3.6 mmol/L (3.5-5.1); Total Protein 4.7 gm/dl (6.4-8.2)
[2020-05-14 04:49] LABS: Basophils # (auto) 0.01 K/uL (0-0.2); Basophils % (auto) 0.1 %; Eosinophils # (auto) 0.05 K/uL (0-0.5); Eosinophils % (auto) 0.6 %; Immature Granulocytes # (auto) 0.07 K/uL (0.00-0.02); Immature Granulocytes % (auto) 0.8 %; Lymphocytes # (auto) 0.67 K/uL (1.2-3.4); Monocytes # (auto) 0.75 K/uL (0.11-0.59); Monocytes % (auto) 8.9 %; Neutrophils # (auto) 6.84 K/uL (1.4-6.5); Neutrophils % (auto) 81.6 %; Target Cells 1+
[2020-05-14 04:57] LABS: Bilirubin Direct 11.3 mg/dl (0-0.2)
[2020-05-14] MEDS ORDERED: POTASSIUM PHOS 3 MMOL/1 ML INFUSION IV STA (05:22)
[2020-05-14] MEDS ORDERED: MAGNESIUM SULFATE / D5W 1 GM/100 ML BAG IV ONE (05:30)
[2020-05-14] MEDS ORDERED: POTASSIUM PHOSPHATE 15 MMOL in SODIUM CHLORIDE 0.9% 250 ML IV ONE (05:45)
[2020-05-14 06:02] LABS: iSTAT Arterial Blood Gas HCO3 22 meg/L (19-24); iSTAT Arterial Blood Gas pCO2 33 mmHg (35-46); iSTAT Arterial Blood Gas pH 7.43 (7.35-7.45); iSTAT Arterial Blood Gas pO2 106 mmHg (80-95); iSTAT Carbon Dioxide 23 mmol/L (24-31); iSTAT Site Art Line
[2020-05-14] MEDS: THIAMINE HCL 500 MG in SODIUM CHLORIDE 0.9% 50 ML IV SCH ×3 (08:00→19:59)
[2020-05-14] MEDS: PANTOprazole 40 MG in SYRINGE 0 ML IV SCH ×2 (08:03→19:59)
--- NOTE | 2020-05-14 08:04 | XRay Report ---
SINGLE VIEW CHEST CLINICAL HISTORY: Dyspnea. FINDINGS: An AP, portable, upright chest radiograph is compared to study dated 05/12/2020. Correlation is made with chest CT dated 05/11/2020. The examination is degraded by portable technique and patient rotation. The heart is mildly enlarged noting atherosclerotic calcification of the thoracic aorta. T here are low lung volumes with bibasilar atelectasis. Patchy consolidation is again seen throughout t he lungs, left greater than right. No large pleural effusion or pneumothorax is seen. The bony thorax is grossly intact. IMPRESSION: 1. Patchy consolidation throughout both lungs (left greater than right) is unchanged to slightly incr eased from previous. 2. Mild cardiac enlargement without radiographic evidence of congestive failure. 3. Low lung volumes. ACT 112: Negative or not required by law. Electronically signed by: Rusty Francois M.D. 05/14/2020 8:03 AM
--- NOTE | 2020-05-14 08:40 | Gastroenterology Progress Note ---
Date of Service May 14, 2020 Assessment & Plan (1) Alcohol abuse: (2) Liver cirrhosis: (3) Acute hyponatremia: (4) Nonspecific colitis: Pt is a 59 y/o male, who presented with SOB, chills symptoms ? black stools prior to admission but no BMs or other signs of GI bleeding since admitted. COVID 19 negative. He has hx of heavy ETOH abuse, on evaluation noted to have likely pneumonia. Abd imaging showed fatty and cirrhotic appearing liver w small volume ascites, evidence of portal HTN, varices, non specific colitis. MELD 28, Maddreys Discriminant Function Score 22. Transferred to ICU last night for hypotension, on pressors now. Mentation dumas still very drowsy on sedatives for ETOH withdrawal though today he is following very simple commands slightly and trying to verbalize. Tbili w slight increase but transaminases are improving, normal renal function, INR decreased to 1.[address] Vit K. - Antibx coverage for suspected pneumonia - Completed N-Acetylcysteine protocol - Continue Trental 400mg TID - Monitor closely for s/s of GI bleeding - Monitor closely mental status, changes in coag studies and renal function daily. - Electrolyte correction per primary team; currently on K, Mg, PO4, FA, Thiamine IV supplements - Unable to obtain MRCP, pt receiving sedatives, unable to follow instructions for test - Cirrhosis workup: obtain hepatitis, viral serologies, AIH serologies. HCV Ab prelim +, f/u RNA quant - Check Cdiff, stool cx if diarrhea present -> stool cx negative Admission and Anticipated Discharge Date Admission Date: May 11, 2020 Supervising Physician Co-Signing Physician Notes I have seen and examined the patient and discussed the management with DENNYS Ruiz. Patient moved to ICU - on pressors PE - somnolent but arousable, heent - perrla, cv - rrr no mrg, Pulm - ctab, abd soft nt nd +bs Labs reviewed/imaging reviewed Alcoholic hepatitis superimposed on cirrhosis with pna. Guarded prognosis- he is still going through withdrawal. Continued efforts at withdrawal mgmt Likely will need alcohol rehab on discharge. Trental for 28 days for treatment of alcoholic hepatitis given concerns for infection. Subjective Pt transferred to ICU yesterday due to hypotension, SBP was in 60s. He is currently on pressors. Current BP 95/66. He opens eyes when name called. Follows very simple commands to squeeze hand, raise arm. Attempting to verbalize Review of Systems Review of Systems: Unobtainable due to reduced consciousness Physical Exam Constitutional: + ill appearing ENMT: external ear and nose normal, oropharynx normal Respiratory: + respiratory distress, + uses accessory muscles and + tachypneic Auscultation: + diminished lung sounds and + rales Cardiovascular: RRR, no murmur, no edema Rate/Rhythm: + tachycardic Heart Sounds: no murmur Gastrointestinal (Abdomen): Inspection/Auscultation: + hypoactive bowel sounds Skin: no rashes, warm and dry + jaundice Neurologic: Motor/Sensory: no asterixis Psychiatric: Drowsy Lymphatic: no lymphedema Results & Data ([facility]) Vital Signs (Past 12 Hours) Vital Signs Temp Pulse Resp BP Pulse Ox 05/14/20 06:29 90 34 H 95/66 L 100 05/14/20 05:29 91 H 45 H 103/68 98 05/14/20 04:29 37.1 C 95 H 34 H 109/61 95 05/14/20 03:29 91 H 34 H 94/63 L 97 05/14/20 02:29 98 H 43 H 112/74 95 05/14/20 01:31 100 H 43 H 97 05/14/20 01:30 108 H 33 H 109/77 96 05/14/20 00:29 36.5 C 92 H 24 123/91 94 05/13/20 22:50 101 H 42 H 96 05/13/20 22:40 110 H 44 H 95 05/13/20 22:30 110 H 42 H 114/71 94 05/13/20 22:15 102 H 92 05/13/20 22:00 115 H 96 05/13/20 21:45 99 H 44 H 95 05/13/20 21:40 36.7 C 99 H 94 05/13/20 21:35 101 H 94 05/13/20 21:30 102 H 98 05/13/20 21:28 100 H 127/89 99 05/13/20 21:25 98 H 95 05/13/20 21:20 103 H 05/13/20 21:15 107 H 93 05/13/20 21:11 113 H 87/61 L 96 05/13/20 21:10 108 H 96 05/13/20 21:05 115 H 75/59 L 05/13/20 21:00 107 H 05/13/20 20:58 113 H 95
--- NOTE | 2020-05-14 08:41 | Critical Care Progress Note ---
Date of Service May 14, 2020 Assessment & Plan Admission and Anticipated Discharge Date Admission Date: May 11, 2020 Reason Critically Ill: 59-year-old male here with a pMHx. significant for alcoholism, cirrhosis, and hepatitis C., who presented with AMS and dyspnea and who was under ICU care for airway monitoring, and hypotension. Neuro - [facility] ICU: positive Sedation: - AMS on admission, currently garbled speech, not oriented this is potentially multifactorial from hyponatremia, medication, and ETOH - high dose Thiamine for 5 days, for concern of WE also getting IV folic acid - Ativan ordered per withdrawal protocol, 20 mg over the last 24 hours - stopped monitoring AWSS and giving Ativan since patient was becoming more altered likely due to the amount of Ativan, nursing will inform if he has worsening symptoms of withdrawal - when patient is taking orals consider switching to Librium or Valium - ammonia less than 10 X3 Cardiac - - Hypotension with systolics as low as 60 potentially due to low albumin, was placed on norepinephrine initially this has been stopped - Hx. of PCI in 2016 with JEFFREY placed, was on dual antiplatelet with ASA Plavix with plan for one year of Plavix and ASA indefinitely, currently holding ASA - Tachycardic likely 2/2 alcohol withdrawal, EKG w/ sinus tachycardia, current HR 91 - prior history of ischemic cardiomyopathy: prior ECHO from September 2018 with EF 55-60%, grade 1 diastolic disfunction and nl. atrial size - troponin 0.025, no ST elevations on EKG - holding lisinopril and Carvedilol in the setting of low blood pressure Respiratory - - patient presented with dyspnea, concern for pneumonia on CT with KIANNA consolidation and LLL ground glass opacities, started on Zosyn in the ED - procalcitonin elevated initially, down trending - deescalated antibiotics to: Rocephin; consider 5 day course; day for of Azithromycin stopped at day 4 given prolonged QT - ABG with findings of: primary respiratory alkalosis, chronic with secondary metabolic acidosis and additional non-gap metabolic acidosis - Oz- herrera respirations potentially 2/2 encephalopathy GI - - Current MELD 27 initial MDF less than 32 - GI consulted for cirrhosis in the setting of ETOH abuse and hepatitis C; labs to further evaluate his liver are pending, will complete NAC today - Acetaminophen level from 05/12 came back as <10., EBV IgG +, Hep B negative - LFT's improved to AST 134 and ALT 78, Bili increased to 14.4 total, 11.3 direct, continue to monitor - initial concern for GIB, continue to follow H&H (stable), BP, HR, UOP - Protonix IV BID - NPO due to altered mental status, continue to evaluate RENAL/LYTES - - Hypervolemic Hyponatremia Na 117 initially improved to 130 this morning - Lasix 20 IV QAM, consider Aldactone when taking oral medication Hypokalemia likely 2/2 poor dietary intake, and Lasix, currently 3.6 - replace and monitor Hypophosphatemia currently 2.8 - replace and monitor Hypomagnesemia currently 1.6 - replace and monitor - - Small[place] in place to follow UOP closely (improved) ENDO - - no concerns right now HEME - - Stable H&H. 10.2 & 28.8, continue to follow - thrombocytopenia 82 stable likely from liver disease ID - - concern for PNA on CT with L>R ground glass opacities - pt. has been afebrile during this admission - MRSA nasal swab negative - initially ordered Vancomycin, Zosyn - transition to Azithromycin, Rocephin - stopped Azithromycin given prolonged QTc - cultures no growth at 48 hours - elevated procalcitonin down trending currently 0.71 -> 0.62 today INTEGUMENTARY - - no acute concerns PSYCH - - patient history concerning for severe depression and would likely benefit from outpatient management LINES/IV ACCESS - - PIV intact., Small[place] in place DVT PROPHYLAXIS - - SCD's Thank you for allowing us to be part of this patient's care. Please refer to Dr. Cooley's documentation for any further recommendations. Subjective Patient was very sleepy for me this morning. He was able to follow commands but unable to determine his orientation. Review of Systems Review of Systems: Unobtainable due to cognitive status Physical Exam Constitutional: + obese and + altered mental status ENMT: external ear and nose normal, oropharynx normal Neck: normal visual inspection Respiratory: no respiratory distress and does not use accessory muscles Cardiovascular: RRR, no murmur, no edema Extremities: + edema Gastrointestinal (Abdomen): - large soft, nTTP Skin: + jaundice Neurologic: Speech / Cognition: + abnormal speech (garbled) Psychiatric: Orientation: + not alert and + not oriented x 3 Results & Data Results & Data ([facility]) Vital Signs (Past 12 Hours) Vital Signs Temp Pulse Pulse Resp BP BP Pulse Ox 05/14/20 06:29 90 34 H 95/66 L 100 05/14/20 05:29 91 H 45 H 103/68 98 05/14/20 04:29 37.1 C 95 H 34 H 109/61 95 05/14/20 03:29 91 H 34 H 94/63 L 97 05/14/20 02:29 98 H 43 H 112/74 95 05/14/20 01:31 100 H 43 H 97 05/14/20 01:30 108 H 33 H 109/77 96 05/14/20 00:29 36.5 C 92 H 24 123/91 94 05/13/20 22:50 101 H 42 H 96 05/13/20 22:40 110 H 44 H 95 05/13/20 22:30 110 H 42 H 114/71 94 05/13/20 22:15 102 H 92 05/13/20 22:00 115 H 96 05/13/20 21:45 99 H 44 H 95 05/13/20 21:40 36.7 C 99 H 94 05/13/20 21:35 101 H 94 05/13/20 21:30 102 H 98 05/13/20 21:28 100 H 127/89 99 05/13/20 21:25 98 H 95 05/13/20 21:20 103 H 05/13/20 21:15 107 H 93 05/13/20 21:11 113 H 87/61 L 96 05/13/20 21:10 108 H 96 05/13/20 21:05 115 H 75/59 L 05/13/20 21:00 107 H 05/13/20 20:58 113 H 95 05/13/20 20:33 117 H 48 H 73/52 L 95 CBC Results Results Complete Blood Count Results: RBC 2.68 M/uL (4.7-6.1) L 05/14/20 WBC 8.39 K/uL (4.8-10.8) 05/14/20 Hgb 10.2 g/dL (14.0-18.0) L 05/14/20 Hct 28.8 % (42-52) L 05/14/20 Plt Count 82 K/uL (130-400) L 05/14/20 Chemistry (BMP) Results BMP Results: Sodium 130 mmol/L (136-145) L 05/14/20 Potassium 3.6 mmol/L (3.5-5.1) 05/14/20 Chloride 100 mmol/L (98-107) 05/14/20 BUN 5 mg/dl (7-18) L 05/14/20 Creatinine 0.69 mg/dl (0.6-1.4) 05/14/20 Glucose 94 mg/dl (70-99) 05/14/20 Resident Activity Tracking Resident Involvement: Resident Care Provided Care Provided: Adult [facility] Medicine
[2020-05-14] MEDS: PENTOXIFYLLINE 400MG EXT REL TAB PO SCH ×3 (08:56→19:55)
[2020-05-14] MEDS: NICOTINE 21 MG/24 HR TDSY TD SCH (08:56)
[2020-05-14] MEDS: NYSTATIN OINT 15 GM TUBE EXT SCH ×4 (08:56→20:00)
[2020-05-14] MEDS: cefTRIAXone SODIUM 2,000 MG in DEXTROSE 5% 50 ML IV SCH (09:21)
[2020-05-14] MEDS ORDERED: ALBUT/IPRATROP 3MG/0.5MG NEB 3 ML VIAL NEB PRN (09:57)
[2020-05-14] MEDS ORDERED: FUROSEMIDE 20 MG in SYRINGE 0 ML IV ONE (10:00)
[2020-05-14] MEDS ORDERED: CALCIUM GLUCONATE 10% 1,000 MG in SODIUM CHLORIDE 0.9% 50 ML IV STA (10:02)
[2020-05-14] MEDS ORDERED: ICU ELECTROLYTE REPLACEMENT PROTOCOL PRN (10:23)
[2020-05-14] MEDS: FOLIC ACID 1 MG in SYRINGE 9.8 ML IV SCH (10:39)
--- NOTE | 2020-05-14 11:28 | Electrocardiogram Report ---
Test Reason : Blood Pressure : / mmHG Vent. Rate : 117 BPM Atrial Rate : 117 BPM P-R Int : 152 ms QRS Dur : 100 ms QT Int : 356 ms P-R-T Axes : 016 -44 031 degrees QTc Int : 496 ms Sinus tachycardia with Premature atrial complexes Left axis deviation Incomplete right bundle branch block Voltage criteria for left ventricular hypertrophy Old Anterolateral infarct (cited on or before 20-NOV-2019) Abnormal ECG When compared with ECG of 11-MAY-2020 10:24, Premature atrial complexes now present Confirmed by James Sam ([id number]) on 05/14/2020 11:27:45 AM Referred By: REFERRED SELF Confirmed By:James Sam
--- NOTE | 2020-05-14 12:25 | Billing Data ---
Date of Service May 14, 2020 Coding Level of Care Code Critical Care 1st 30-74 mins Time Spent (min) 35
[2020-05-14] MEDS: AZITHROMYCIN 500 MG in DEXTROSE 5% 250 ML IV SCH (14:41)
--- NOTE | 2020-05-14 18:54 | Hospitalist Progress Note ---
Date of Service May 14, 2020 Assessment & Plan (1) Acute alcoholic hepatitis: significant acute liver failure 2nd to etoh. s/p NAC protocol. also on pentoxifylline in spencer of steroids due to high Madrey's discriminant function score. cont supportive care, serial labs, etc. (2) Acute metabolic encephalopathy: multifactorial. metabolic from infection, acute liver injury, etc. toxic from copious IV ativan? ammonia normal. CT head 05/11 wnl. on high-dose thiamine IV for prevention of Wernicke's encephalopathy. (3) Liver cirrhosis: 2nd to etoh. cannot rule out HepC contributing. Ab is +; RNA viral load pending. Appreciate GI consultation and recs Treating acute liver injury as above. (4) Acute hyponatremia: 119 at admission marked improvement to 129 likely multifactorial in origin BMP am (5) Tobacco use disorder: nicoderm patch daily (6) Alcohol withdrawal: received IV ativan - copious amounts - last 24 hours some of his sedation could be from such ativan to be restricted today if at all possible to allow mentation to improve (7) Ischemic cardiomyopathy: EF 30-35% by report appears compensated on exam today (8) Hepatitis C: Ab + RNA viral load pending (9) Pneumonia: b/l community-acquired vs aspiration rocephin/zithromax (10) Depression: needs Rx once mentation improved and able to take meds (11) Acute respiratory failure with hypoxia: 2nd pneumonia supportive care abx (12) Alcohol dependence: states she wants rehab for patient post-d/c cont high-dose thiamine, folic acid etoh withdrawal protocol (13) Hypokalemia: replace serial labs (14) Hypomagnesemia: replace serial labs (15) DVT prophylaxis: heparin SC spoke with pt's by phone - gave update Admission and Anticipated Discharge Date Admission Date: May 11, 2020 Subjective patient lethargic during my visit. did not wake up to his name being called but was moaning and shifting in the bed during the visit. has received copious IV ativan for etoh withdrawal over last 24 hours. Review of Systems Review of Systems: Unobtainable due to reduced consciousness Physical Exam Constitutional: + obese and + altered mental status; no acute distress Eyes: PERRL ENMT: external ear and nose normal, oropharynx normal Respiratory: + retractions (Mild subcostal ) and + tachypneic Auscultation: + crackles (B/l ) Cardiovascular: Rate/Rhythm: regular rhythm and + tachycardic Heart Sounds: normal S1 and normal S2; no murmur Vessels: posterior tibial pulses present and dorsalis pedis pulses present; no JVD Extremities: no edema Gastrointestinal (Abdomen): normal bowel sounds, soft, nontender, no hepatosplenomegaly Skin: + jaundice (To waistline ) Psychiatric: Orientation: + not alert and + not oriented x 3 Results & Data Results & Data ([facility]) Vital Signs (Past 12 Hours) Vital Signs Temp Pulse Resp BP Pulse Ox 05/14/20 18:00 37.4 C 108 H 94 05/14/20 17:30 106 H 115/67 95 05/14/20 16:29 98 H 118/78 96 05/14/20 16:00 37.5 C 87 95 05/14/20 15:29 98 H 125/74 96 05/14/20 15:00 37.8 C H 96 05/14/20 14:29 103 H 122/75 90 05/14/20 13:30 98 H 120/74 96 05/14/20 12:29 96 H 113/74 96 05/14/20 11:29 92 H 116/72 98 05/14/20 10:29 86 113/72 97 05/14/20 09:29 83 100/85 99 05/14/20 08:37 84 110/73 97 05/14/20 08:35 36.9 C 05/14/20 07:30 88 38 H 82/54 L 100 Laboratory Results Laboratory Results - last 24 hr 05/13/20 05/13/20 05/13/20 20:24 20:39 20:39 WBC RBC Hgb 11.8 L POC Hgb Hct 34.1 L POC Hct MCV MCH MCHC RDW Std Deviation RDW Coeff of [place] Plt Count MPV Immature Gran % (Auto) Neut % (Auto) Lymph % (Auto) [place] % (Auto) Eos % (Auto) Baso % (Auto) Neut # (Auto) Lymph # (Auto) [place] # (Auto) Eos # (Auto) Baso # (Auto) Immature Gran # (Auto) Target Cells PT INR Sample Site POC pH POC pCO2 POC pO2 POC HCO3 POC Total CO2 POC Base Excess ABG pH (Temp Correct) ABG pCO2 (Temp Corrct POC ABG pO2 at Pt Temp POC ABG O2 Sat Oliver Test O2 Delivery Device POC Sodium Sodium 129 L POC Potassium Potassium 3.2 L D Chloride 98 Carbon Dioxide 19 L Anion Gap 12.0 H BUN 5 L Creatinine 0.86 D Est Cr Clr Drug Dosing 103.9 Est GFR ( Amer) 111.6 Est GFR (Non-Af Amer) 96.3 BUN/Creatinine Ratio 6.1 L Glucose 100 H POC Glucose 115 H Calcium 7.4 L Phosphorus 1.7 L Magnesium 1.8 Total Bilirubin Direct Bilirubin AST ALT Alkaline Phosphatase Ammonia Total Protein Albumin Procalcitonin Random Cortisol 05/13/20 05/13/20 05/14/20 20:39 21:20 04:09 WBC 8.39 RBC 2.68 L Hgb 10.2 L POC Hgb 12.2 L Hct 28.8 L POC Hct 36 L MCV 107.5 H MCH 38.1 H MCHC 35.4 RDW Std Deviation 59.7 H RDW Coeff of [place] 15.6 H Plt Count 82 L MPV 10.8 H Immature Gran % (Auto) 0.8 Neut % (Auto) 81.6 Lymph % (Auto) 8.0 [place] % (Auto) 8.9 Eos % (Auto) 0.6 Baso % (Auto) 0.1 Neut # (Auto) 6.84 H Lymph # (Auto) 0.67 L [place] # (Auto) 0.75 H Eos # (Auto) 0.05 Baso # (Auto) 0.01 Immature Gran # (Auto) 0.07 H Target Cells 1+ PT INR Sample Site Art Line POC pH 7.49 H POC pCO2 26 L POC pO2 71 L POC HCO3 20 POC Total CO2 20 L POC Base Excess -4.0 ABG pH (Temp Correct) 7.474 H ABG pCO2 (Temp Corrct 27 L POC ABG pO2 at Pt Temp 75 POC ABG O2 Sat 96.0 H Oliver Test Pass O2 Delivery Device Room Air POC Sodium 129 L Sodium POC Potassium 3.1 L Potassium Chloride Carbon Dioxide Anion Gap BUN Creatinine Est Cr Clr Drug Dosing Est GFR ( Amer) Est GFR (Non-Af Amer) BUN/Creatinine Ratio Glucose POC Glucose Calcium Phosphorus Magnesium Total Bilirubin Direct Bilirubin AST ALT Alkaline Phosphatase Ammonia Total Protein Albumin Procalcitonin Random Cortisol 25.95 05/14/20 05/14/20 05/14/20 04:09 04:09 04:09 WBC RBC Hgb POC Hgb Hct POC Hct MCV MCH MCHC RDW Std Deviation RDW Coeff of [place] Plt Count MPV Immature Gran % (Auto) Neut % (Auto) Lymph % (Auto) [place] % (Auto) Eos % (Auto) Baso % (Auto) Neut # (Auto) Lymph # (Auto) [place] # (Auto) Eos # (Auto) Baso # (Auto) Immature Gran # (Auto) Target Cells PT 15.7 H INR 1.5 H Sample Site POC pH POC pCO2 POC pO2 POC HCO3 POC Total CO2 POC Base Excess ABG pH (Temp Correct) ABG pCO2 (Temp Corrct POC ABG pO2 at Pt Temp POC ABG O2 Sat Oliver Test O2 Delivery Device POC Sodium Sodium 130 L POC Potassium Potassium 3.6 Chloride 100 Carbon Dioxide 23 Anion Gap 7.0 BUN 5 L Creatinine 0.69 Est Cr Clr Drug Dosing 129.4 Est GFR ( Amer) 122.1 Est GFR (Non-Af Amer) 105.4 BUN/Creatinine Ratio 6.6 L Glucose 94 POC Glucose Calcium 7.2 L Phosphorus 2.8 D Magnesium 1.6 L Total Bilirubin 14.4 H Direct Bilirubin 11.3 H AST 134 H ALT 78 Alkaline Phosphatase 183 H Ammonia < 10.0 L Total Protein 4.7 L Albumin 1.8 L Procalcitonin Random Cortisol 05/14/20 05/14/20 04:09 05:48 WBC RBC Hgb POC Hgb Hct POC Hct MCV MCH MCHC RDW Std Deviation RDW Coeff of [place] Plt Count MPV Immature Gran % (Auto) Neut % (Auto) Lymph % (Auto) [place] % (Auto) Eos % (Auto) Baso % (Auto) Neut # (Auto) Lymph # (Auto) [place] # (Auto) Eos # (Auto) Baso # (Auto) Immature Gran # (Auto) Target Cells PT INR Sample Site Art Line POC pH 7.43 POC pCO2 33 L POC pO2 106 H POC HCO3 22 POC Total CO2 23 L POC Base Excess -2.0 ABG pH (Temp Correct) ABG pCO2 (Temp Corrct POC ABG pO2 at Pt Temp POC ABG O2 Sat 98.0 H Oliver Test NA O2 Delivery Device Cannula POC Sodium Sodium POC Potassium Potassium Chloride Carbon Dioxide Anion Gap BUN Creatinine Est Cr Clr Drug Dosing Est GFR ( Amer) Est GFR (Non-Af Amer) BUN/Creatinine Ratio Glucose POC Glucose Calcium Phosphorus Magnesium Total Bilirubin Direct Bilirubin AST ALT Alkaline Phosphatase Ammonia Total Protein Albumin Procalcitonin 0.62 H Random Cortisol PG Care Time/CCT Total # of Minutes Spent Total Time Spent with Patient: Total time spent is greater than 50% in coordination of care (as documented) at patient's floor/unit and/or counseling patient: Coding Level of Care Code 40143 Subseq Hosp Care Lvl 2 Diagnoses Acute alcoholic hepatitis K70.10 Acute metabolic encephalopathy G93.41 Liver cirrhosis K74.60 Acute hyponatremia E87.1 Tobacco use disorder F17.200 Alcohol withdrawal F10.239 Ischemic cardiomyopathy I25.5 Hepatitis C B18.2 Viral hepatitis chronicity: chronic Hepatic coma status: without hepatic coma Pneumonia J18.9 Depression F32.9 Acute respiratory failure with hypoxia J96.01 Alcohol dependence F10.229 Complication of substance-induced condition: with unspecified complication Substance use status: with intoxication Hypokalemia E87.6 Hypomagnesemia E83.42 DVT prophylaxis Z29.9 (1) Hepatitis C Viral hepatitis chronicity: chronic Hepatic coma status: without hepatic coma Qualified Code(s): B18.2 - Chronic viral hepatitis C (2) Alcohol dependence Complication of substance-induced condition: with unspecified complication Substance use status: with intoxication Qualified Code(s): F10.229 - Alcohol dependence with intoxication, unspecified
[2020-05-14] MEDS: HEPARIN SOD 5,000 UNIT/0.5 ML VIAL SQ SCH (19:58)
[2020-05-15 05:47] LABS: Albumin Level 1.6 gm/dl (3.4-5.0); BUN Creatinine Ratio 9.3 (10-20); Bilirubin,Total 14.8 mg/dl (0.2-1); Calcium 6.7 mg/dl (8.5-10.1); Creatinine Clr Calc Pharmacy 169.6 ml/min; Est GFR (African American) 136.1; Est GFR (Non-African American) 117.5; Magnesium 1.5 mg/dl (1.8-2.4); Potassium 3.2 mmol/L (3.5-5.1); Total Protein 4.5 gm/dl (6.4-8.2)
[2020-05-15 05:48] LABS: Bilirubin Direct 11.1 mg/dl (0-0.2); Phosphorus 1.8 mg/dl (2.5-4.9)
[2020-05-15] MEDS ORDERED: GABAPENTIN 600 MG TAB PO SCH (06:00)
[2020-05-15] MEDS ORDERED: MAGNESIUM SULFATE / D5W 1 GM/100 ML BAG IV ONE ×2 (06:35→12:05)
[2020-05-15] MEDS ORDERED: CALCIUM GLUCONATE 10% 1,000 MG in SODIUM CHLORIDE 0.9% 50 ML IV STA (06:35)
[2020-05-15] MEDS ORDERED: POTASSIUM PHOS 3 MMOL/1 ML INFUSION IV STA (06:35)
[2020-05-15] MEDS ORDERED: POTASSIUM PHOSPHATE 24 MMOL in SODIUM CHLORIDE 0.9% 500 ML IV ONE (06:45)
[2020-05-15] MEDS ORDERED: POTASSIUM PHOSPHATE 21 MMOL in SODIUM CHLORIDE 0.9% 500 ML IV ONE (06:45)
[2020-05-15] MEDS: POTASSIUM CHLORIDE / WTR 10 MEQ/100 ML PLCT IV SCH ×7 (08:07→20:49)
[2020-05-15] MEDS: FOLIC ACID 1 MG in SYRINGE 9.8 ML IV SCH (08:07)
[2020-05-15] MEDS: PANTOprazole 40 MG in SYRINGE 0 ML IV SCH ×2 (08:07→20:52)
[2020-05-15] MEDS: NYSTATIN OINT 15 GM TUBE EXT SCH ×4 (08:13→20:52)
[2020-05-15] MEDS: HEPARIN SOD 5,000 UNIT/0.5 ML VIAL SQ SCH ×2 (08:15→20:53)
[2020-05-15] MEDS: NICOTINE 21 MG/24 HR TDSY TD SCH ×2 (08:15→08:55)
--- NOTE | 2020-05-15 08:32 | Gastroenterology Progress Note ---
Date of Service May 15, 2020 Assessment & Plan (1) Alcohol abuse: (2) Liver cirrhosis: (3) Acute hyponatremia: (4) Nonspecific colitis: Pt is a 59 y/o male, who presented with SOB, chills symptoms ? black stools prior to admission but no BMs or other signs of GI bleeding since admitted. COVID 19 negative. He has hx of heavy ETOH abuse, on evaluation noted to have likely pneumonia. Abd imaging showed fatty and cirrhotic appearing liver w small volume ascites, evidence of portal HTN, varices, non specific colitis. MELD 28, Maddreys Discriminant Function Score 22. ICU status still somnolent. Mild temp yesterday evening. LFTs trending down, UOP 2L w Lasix. Continues to be w/o signs of GI bleeding - Antibx coverage for suspected pneumonia - Completed N-Acetylcysteine protocol - Continue Trental 400mg TID - Consider repeat cultures given febrile - Monitor closely mental status, changes in coag studies and renal function daily. - Electrolyte correction per primary team; currently on K, Mg, PO4, FA, Thiamine IV supplements - Unable to obtain MRCP, pt receiving sedatives, unable to follow instructions for test - Cirrhosis workup: obtain hepatitis, viral serologies, AIH serologies. HCV Ab prelim +, f/u RNA quant - Check Cdiff, stool cx if diarrhea present -> stool cx negative - ETOH cessation, possibly rehab upon DC - Will watch peripherally, pls call if any acute changes/concerns Admission and Anticipated Discharge Date Admission Date: May 11, 2020 Supervising Physician Co-Signing Physician Notes I have seen and examined the patient and discussed the management with DENNYS Ruiz. Clinically - slightly more jaundiced appearing, heent - perrla, cv- rrr no mrg, pulm- ctab, abd - soft nt nd +bs Labs reviewed - slightly rising TB, sodium has normalized Still going through withdrawal and bedside today Overall impression: alcoholic hepatitis superimposed on cirrhosis- high meld but likely this will fluctuate as the hepatitis improves. Also with PNA. Likely slow recovery - continue wtih Pentoxyfylline for alcoholic hepatitis given concerns for infection at this time (avoiding steroids for this reason). If patient recovers, would strongly encourage alcohol rehab upon discharge. Subjective Still somnolent, only able to open eyes slightly when name called, grunting. ICU status, on pressors. Spiked mild temp again yesterday afternoon. Per RN pt had 2 greenish stools over night. LFTs trending down. UOP 2L Review of Systems Review of Systems: Unobtainable due to reduced consciousness Physical Exam Constitutional: + ill appearing ENMT: external ear and nose normal, oropharynx normal Respiratory: + respiratory distress, + uses accessory muscles and + tachypneic Auscultation: + diminished lung sounds and + rales Cardiovascular: RRR, no murmur, no edema Rate/Rhythm: + tachycardic Heart Sounds: no murmur Gastrointestinal (Abdomen): Inspection/Auscultation: + hypoactive bowel sounds Skin: no rashes, warm and dry + jaundice Psychiatric: Somnolent Lymphatic: no lymphedema Results & Data ([facility]) Vital Signs (Past 12 Hours) Vital Signs Pulse BP Pulse Ox 05/15/20 06:29 108 H 115/74 95 05/15/20 06:00 95 H 96 05/15/20 05:29 105 H 141/95 H 93 05/15/20 04:55 98 H 127/72 97 05/15/20 03:30 96 H 126/87 97 05/15/20 02:29 91 H 130/77 97 05/15/20 01:29 97 H 134/82 91 05/15/20 00:29 111 H 121/77 94 05/14/20 23:29 104 H 131/70 90 05/14/20 22:29 94 H 111/68 96 05/14/20 21:29 96 H 108/69 97
[2020-05-15] MEDS: PENTOXIFYLLINE 400MG EXT REL TAB PO SCH ×3 (08:51→20:24)
[2020-05-15] MEDS: THIAMINE HCL 500 MG in SODIUM CHLORIDE 0.9% 50 ML IV SCH ×3 (10:29→20:54)
[2020-05-15] MEDS: cefTRIAXone SODIUM 2,000 MG in DEXTROSE 5% 50 ML IV SCH (10:29)
[2020-05-15] MEDS ORDERED: BENZOCAINE 20% AER SPR 82.5 GM CAN EXT PRN (11:18)
[2020-05-15] MEDS ORDERED: POTASSIUM CHLORIDE / WTR 10 MEQ/100 ML PLCT IV ONE (12:00)
--- NOTE | 2020-05-15 13:20 | Critical Care Progress Note ---
Date of Service May 15, 2020 Assessment & Plan (1) Admitted to intensive care unit: Reason Critically Ill: 59-year-old male here with a pMHx. significant for alcoholism, cirrhosis, and hepatitis C., who presented with AMS and dyspnea and who was under ICU care for airway monitoring, and hypotension. 24-hour events: The patient is remained hemodynamically stable off pressors. We significantly decreased his benzodiazepines with improvement in his level of encephalopathy and delirium. He remains intermittently tachypneic. No fevers. Update given to yesterday. Discussed on multidisciplinary rounds today Recommendations: Neuro - Toxic metabolic encephalopathy: Improved with decreasing benzodiazepines. Continue high-dose thiamine and allow sensorium to clear. If agitation becomes a problem, could consider Zyprexa or Geodon however QTC is slightly prolonged. Cardiac - Previous hypotension resolved and likely multifactorial. Blood pressure currently adequate. Holding additional albumin for now. Tachycardia resolved. Respiratory - Patchy infiltrates on CT scan concerning for pneumonia. See ID below. Continue to wean oxygen as tolerated. Patient's mental status does not allow for incentive spirometry or other pulmonary toilet measures currently GI - Hepatic failure due to alcohol abuse. Completed course of N-acetylcysteine. Continue to trend LFTs. Appreciate GI assistance. No evidence of ongoing bleeding. Ongoing alcohol abstinence is mandatory. Case management following and once the patient's mental status is appropriate we will discuss options for patient and family RENAL/LYTES - Hypervolemic hyponatremia correcting this morning. Continue to trend. Electrolytes replaced per protocol. Continue to follow - - Smallwood in place to follow UOP closely (improved) ENDO - - no concerns right now HEME - - Stable H&H. 10.2 & 28.8, continue to follow - thrombocytopenia 82 stable likely from liver disease ID - Complete course of azithromycin and Rocephin. Last dose of azithromycin administered today. Cultures remain negative procalcitonin decreasing. No fevers. If the patient should develop fever, repeat evaluation may be warranted including consideration for abdominal ultrasound and paracentesis. INTEGUMENTARY - - no acute concerns PSYCH - - patient history concerning for severe depression and would likely benefit from outpatient management LINES/IV ACCESS - - PIV intact., Smallwood in place DVT PROPHYLAXIS -subcu heparin We will observe the patient in the ICU today given his valentín status but he appears significantly improved. If continues to trend in the right direction, can likely transfer out of the ICU in the next 24 hours back to the hospitalist service. We will sign off once he leaves the ICU. Admission and Anticipated Discharge Date Admission Date: May 11, 2020 Subjective Patient seen and examined. EMR reviewed. This morning the patient is more alert but remains encephalopathic. He can answer some simple questions. He remains somewhat tachypneic and obtunded. Is been hemodynamically stable overnight Review of Systems Review of Systems: Unobtainable due to cognitive status Physical Exam Constitutional: + ill appearing ENMT: external ear and nose normal, oropharynx normal Respiratory: + respiratory distress, + uses accessory muscles and + tachypneic Auscultation: + diminished lung sounds and + rales Cardiovascular: RRR, no murmur, no edema Rate/Rhythm: + tachycardic Heart Sounds: no murmur Gastrointestinal (Abdomen): Inspection/Auscultation: + hypoactive bowel sounds Skin: no rashes, warm and dry + jaundice Psychiatric: Somnolent Lymphatic: no lymphedema Results & Data Results & Data ([facility]) Vital Signs (Past 12 Hours) Vital Signs Pulse BP Pulse Ox 05/15/20 09:29 102 H 127/89 95 05/15/20 09:00 98 H 96 05/15/20 08:30 101 H 122/82 94 05/15/20 07:30 98 H 132/83 95 05/15/20 06:41 101 H 115/74 95 05/15/20 06:29 108 H 115/74 95 05/15/20 06:00 95 H 96 05/15/20 05:29 105 H 141/95 H 93 05/15/20 04:55 98 H 127/72 97 05/15/20 03:30 96 H 126/87 97 05/15/20 02:29 91 H 130/77 97 05/15/20 01:29 97 H 134/82 91 05/15/20 00:29 111 H 121/77 94 05/14/20 23:29 104 H 131/70 90 05/14/20 22:29 94 H 111/68 96 Laboratory Results 05/14/20 04:09 05/15/20 04:23 Cultures remain negative to date Diagnostic Findings No new imaging Coding Level of Care Code 79780 Subseq Hosp Care Lvl 3 Diagnoses Admitted to intensive care unit Z78.9
[2020-05-15 16:10] LABS: BUN Creatinine Ratio 9.8 (10-20); Calcium 7.2 mg/dl (8.5-10.1); Creatinine Clr Calc Pharmacy 138.5 ml/min; Est GFR (Non-African American) 108.7; Magnesium 2.2 mg/dl (1.8-2.4); Phosphorus 2.3 mg/dl (2.5-4.9)
[2020-05-15 16:11] LABS: Potassium 3.9 mmol/L (3.5-5.1)
[2020-05-15] MEDS ORDERED: SODIUM PHOSPHATE 3 MMOL/1 ML INFUSION IV STA (16:20)
[2020-05-15] MEDS ORDERED: SODIUM PHOSPHATE 15 MMOL in SODIUM CHLORIDE 0.9% 250 ML IV ONE (16:30)
--- NOTE | 2020-05-15 17:11 | XRay Report ---
SINGLE VIEW CHEST CLINICAL HISTORY: Tachypnea. FINDINGS: An AP, portable, semierect chest radiograph is compared to study dated 05/14/2020. Correlati on is made with chest CT dated 05/11/2020. The examination is degraded by portable technique and patie nt rotation. The heart is mildly enlarged noting atherosclerotic calcification of the thoracic aorta. The pulmonary vasculature appears congested. There are low lung volumes with bibasilar atelectasis. There is increasing patchy airspace consolidation seen throughout both lungs. No large pleural effusi on or pneumothorax is seen. The bony thorax is grossly intact. IMPRESSION: 1. There is increasing patchy airspace consolidation seen throughout both lungs as compared 05/14/2020 . 2. Mild cardiac enlargement. Pulmonary vascular congestion is suspected and clinical correlation will be required. 3. Low lung volumes. ACT 112: Negative or not required by law. Electronically signed by: Rusty Francois M.D. 05/15/2020 5:09 PM
[2020-05-15 17:23] LABS: Oxygen Saturation VBG 75.5 %; pH VBG 7.43 (7.36-7.41)
[2020-05-15] MEDS ORDERED: FUROSEMIDE 40 MG in SYRINGE 0 ML IV ONE (19:00)
[2020-05-15] MEDS ORDERED: MENTHOL-ZINC OXIDE 360 APPLN/120 GM TUBE EXT SCH (20:00)
--- NOTE | 2020-05-15 20:51 | Hospitalist Progress Note ---
Date of Service May 15, 2020 Assessment & Plan (1) Acute alcoholic hepatitis: significant acute liver failure 2nd to etoh. s/p NAC protocol. remains on pentoxifylline in spencer of steroids due to high Madrey's discriminant function score in the setting of a pneumonia process. cont supportive care, serial labs, etc. ammonia level again normal this afternoon. (2) Acute metabolic encephalopathy: multifactorial. metabolic from infection, acute liver injury, etc. possibly toxic from copious IV ativan - none in 30 hours at this point, but could theoretically be still clearing in light of severe liver dysfunction. ammonia normal again today. CT head 05/11 wnl. on high-dose thiamine IV for prevention of Wernicke's encephalopathy. consider repeat head CT. VBG w/o hypercarbia. (3) Liver cirrhosis: 2nd to etoh. cannot rule out HepC contributing. Ab is +; RNA viral load pending. Appreciate GI consultation and recs Treating acute liver injury as above. (4) Acute hyponatremia: resolved 119 at admission marked improvement to 135 likely multifactorial in origin BMP am (5) Tobacco use disorder: nicoderm patch daily (6) Alcohol withdrawal: received IV ativan up until yesterday AM - copious amounts none since that time some of his sedation could be from such ativan on hold (7) Ischemic cardiomyopathy: EF 30-35% by report appears to have JVD on exam and worsening respiratory status cxr with worsening infiltrates consider diuresis (8) Hepatitis C: Ab + RNA viral load pending (9) Pneumonia: b/l community-acquired vs aspiration cont rocephin (10) Depression: needs Rx once mentation improved and able to take meds (11) Acute respiratory failure with hypoxia: 2nd pneumonia cannot rule out acute/chronic systolic CHF supportive care abx consider diuresis cannot rule out some other disturbance contributing to tachypnea ([employer] cause, etc) (12) Alcohol dependence: states she wants rehab for patient post-d/c cont high-dose thiamine, folic acid etoh withdrawal protocol (13) Hypokalemia: replaced resolved serial labs (14) Hypomagnesemia: replaced resolved serial labs (15) DVT prophylaxis: heparin SC spoke with pt's by phone - gave update on 05/14 Admission and Anticipated Discharge Date Admission Date: May 11, 2020 Subjective patient somnolent during the visit. tachypneic. did not wake during the entire visit. per staff somnolent for much of the day. has been nearly 30 hours since his last dose of IV ativan. Review of Systems Review of Systems: Unobtainable due to cognitive status and Unobtainable due to reduced consciousness Physical Exam Constitutional: + acute distress (tachypneic, mild retractions ), + obese and + altered mental status Eyes: + scleral abnormality (icterus ) and PERRL ENMT: external ear and nose normal, oropharynx normal Respiratory: + retractions (Mild subcostal ) and + tachypneic Auscultation: + crackles (B/l ) Cardiovascular: Rate/Rhythm: regular rhythm and + tachycardic Heart Sounds: normal S1 and normal S2; no murmur Vessels: + JVD, posterior tibial pulses present and dorsalis pedis pulses present Extremities: + edema (trace b/l ) Gastrointestinal (Abdomen): normal bowel sounds, soft, nontender, no hepatosplenomegaly Skin: + jaundice (To waistline ) Psychiatric: Orientation: + not alert and + not oriented x 3 Results & Data Results & Data ([facility]) Vital Signs (Past 12 Hours) Vital Signs Temp Pulse Resp BP Pulse Ox 05/15/20 20:30 119 H 42 H 101/76 94 05/15/20 20:00 92 H 34 H 99 05/15/20 19:30 36.7 C 87 39 H 104/77 97 05/15/20 19:00 90 30 H 95 05/15/20 18:30 91 H 23 91/62 L 94 05/15/20 17:30 39 H 93/65 L 97 05/15/20 16:30 90 44 H 101/72 96 05/15/20 16:00 86 05/15/20 15:30 91 H 42 H 97/62 L 96 05/15/20 15:21 37.5 C 05/15/20 14:36 90 41 H 92/67 L 96 05/15/20 14:31 88 35 H 84/55 L 96 05/15/20 14:30 87 34 H 87/56 L 96 05/15/20 13:30 89 40 H 98/68 L 98 05/15/20 12:31 97 H 33 H 124/79 96 05/15/20 11:30 104 H 44 H 110/77 96 05/15/20 10:30 97 H 108/79 95 05/15/20 09:29 102 H 127/89 95 05/15/20 09:00 98 H 96 Laboratory Results Laboratory Results - last 24 hr 05/15/20 05/15/20 05/15/20 04:23 06:01 09:03 VBG pH VBG pCO2 VBG pO2 VBG HCO3 VBG O2 Saturation VBG Base Excess Barometric Pressure Sodium 136 Potassium 3.2 L Chloride 106 Carbon Dioxide 22 Anion Gap 8.0 BUN 5 L Creatinine 0.53 L Est Cr Clr Drug Dosing 169.6 Est GFR ( Amer) 136.1 Est GFR (Non-Af Amer) 117.5 BUN/Creatinine Ratio 9.3 L Glucose 66 L POC Glucose 78 87 Calcium 6.7 L Phosphorus 1.8 L D Magnesium 1.5 L Total Bilirubin 14.8 H Direct Bilirubin 11.1 H AST 103 H ALT 70 Alkaline Phosphatase 171 H Ammonia Total Protein 4.5 L Albumin 1.6 L 05/15/20 05/15/20 05/15/20 12:11 15:34 15:37 VBG pH VBG pCO2 VBG pO2 VBG HCO3 VBG O2 Saturation VBG Base Excess Barometric Pressure Sodium 136 Potassium 3.9 D Chloride 105 Carbon Dioxide 22 Anion Gap 9.0 BUN 6 L Creatinine 0.64 Est Cr Clr Drug Dosing 138.5 Est GFR ( Amer) 126.0 Est GFR (Non-Af Amer) 108.7 BUN/Creatinine Ratio 9.8 L Glucose 83 POC Glucose 83 92 Calcium 7.2 L Phosphorus 2.3 L Magnesium 2.2 Total Bilirubin Direct Bilirubin AST ALT Alkaline Phosphatase Ammonia Total Protein Albumin 05/15/20 05/15/20 17:00 17:00 VBG pH 7.43 H VBG pCO2 36 L VBG pO2 43 VBG HCO3 23 VBG O2 Saturation 75.5 VBG Base Excess -1.0 Barometric Pressure 726.0 Sodium Potassium Chloride Carbon Dioxide Anion Gap BUN Creatinine Est Cr Clr Drug Dosing Est GFR ( Amer) Est GFR (Non-Af Amer) BUN/Creatinine Ratio Glucose POC Glucose Calcium Phosphorus Magnesium Total Bilirubin Direct Bilirubin AST ALT Alkaline Phosphatase Ammonia < 10.0 L Total Protein Albumin PG Care Time/CCT Total # of Minutes Spent Total Time Spent with Patient: Total time spent is greater than 50% in coordination of care (as documented) at patient's floor/unit and/or counseling patient: Coding Level of Care Code 78079 Subseq Hosp Care Lvl 2 Diagnoses Acute alcoholic hepatitis K70.10 Acute metabolic encephalopathy G93.41 Liver cirrhosis K74.60 Acute hyponatremia E87.1 Tobacco use disorder F17.200 Alcohol withdrawal F10.239 Ischemic cardiomyopathy I25.5 Hepatitis C B18.2 Viral hepatitis chronicity: chronic Hepatic coma status: without hepatic coma Pneumonia J18.9 Depression F32.9 Acute respiratory failure with hypoxia J96.01 Alcohol dependence F10.229 Complication of substance-induced condition: with unspecified complication Substance use status: with intoxication Hypokalemia E87.6 Hypomagnesemia E83.42 DVT prophylaxis Z29.9 (1) Hepatitis C Viral hepatitis chronicity: chronic Hepatic coma status: without hepatic coma Qualified Code(s): B18.2 - Chronic viral hepatitis C (2) Alcohol dependence Complication of substance-induced condition: with unspecified complication Substance use status: with intoxication Qualified Code(s): F10.229 - Alcohol dependence with intoxication, unspecified
[2020-05-16 05:03] LABS: Hematocrit (blood only) 34.6 % (42-52); Hemoglobin 11.6 g/dL (14.0-18.0); Mean Corpuscular Hemoglobin 37.4 pg (25-34); Mean Corpuscular Hgb Conc 33.5 g/dL (32-36); Mean Corpuscular Volume 111.6 fL (80-100); RDW Coefficient of Variation 16.9 % (11.5-14.5); RDW Standard Deviation 67.7 fL (36.4-46.3); White Blood Count 8.07 K/uL (4.8-10.8)
[2020-05-16 05:21] LABS: Mean Platelet Volume 10.8 fL (7.4-10.4); Platelet Count 81 K/uL (130-400)
[2020-05-16 05:26] LABS: Basophils # (auto) 0.03 K/uL (0-0.2); Basophils % (auto) 0.4 %; Eosinophils # (auto) 0.04 K/uL (0-0.5); Eosinophils % (auto) 0.5 %; Immature Granulocytes # (auto) 0.15 K/uL (0.00-0.02); Immature Granulocytes % (auto) 1.9 %; Lymphocytes # (auto) 0.79 K/uL (1.2-3.4); Lymphocytes % (auto) 9.8 %; Monocytes % (auto) 8.7 %; Neutrophils # (auto) 6.36 K/uL (1.4-6.5); Neutrophils % (auto) 78.7 %; Target Cells 1+
[2020-05-16 05:42] LABS: INR 1.4 (0.9-1.1); Prothrombin Time 14.6 Seconds (9.0-12.0)
[2020-05-16 06:30] LABS: Albumin Level 1.8 gm/dl (3.4-5.0); BUN Creatinine Ratio 10.1 (10-20); Bilirubin,Total 16.9 mg/dl (0.2-1); Calcium 6.7 mg/dl (8.5-10.1); Creatinine Clr Calc Pharmacy 109.9 ml/min; Est GFR (African American) 115.5; Est GFR (Non-African American) 99.7; Magnesium 1.9 mg/dl (1.8-2.4); Phosphorus 1.9 mg/dl (2.5-4.9); Potassium 3.6 mmol/L (3.5-5.1)
[2020-05-16] MEDS ORDERED: POTASSIUM PHOS 3 MMOL/1 ML INFUSION IV STA (06:37)
[2020-05-16] MEDS ORDERED: MAGNESIUM SULFATE / D5W 1 GM/100 ML BAG IV ONE (06:37)
[2020-05-16 06:57] LABS: Bilirubin Direct 13.2 mg/dl (0-0.2)
[2020-05-16] MEDS ORDERED: POTASSIUM PHOSPHATE 15 MMOL in SODIUM CHLORIDE 0.9% 250 ML IV ONE (07:15)
[2020-05-16] MEDS: FOLIC ACID 1 MG in SYRINGE 9.8 ML IV SCH (07:40)
[2020-05-16] MEDS: HEPARIN SOD 5,000 UNIT/0.5 ML VIAL SQ SCH ×2 (07:41→21:33)
[2020-05-16] MEDS: NYSTATIN OINT 15 GM TUBE EXT SCH ×4 (07:41→21:34)
[2020-05-16] MEDS: THIAMINE HCL 500 MG in SODIUM CHLORIDE 0.9% 50 ML IV SCH ×3 (07:42→21:33)
[2020-05-16] MEDS: PENTOXIFYLLINE 400MG EXT REL TAB PO SCH ×3 (07:42→20:51)
[2020-05-16] MEDS: NICOTINE 21 MG/24 HR TDSY TD SCH (07:42)
[2020-05-16] MEDS: PANTOprazole 40 MG in SYRINGE 0 ML IV SCH ×2 (07:42→21:34)
--- NOTE | 2020-05-16 08:45 | Critical Care Progress Note ---
Date of Service May 16, 2020 Assessment & Plan Admission and Anticipated Discharge Date Admission Date: May 11, 2020 Reason Critically Ill: 59-year-old male here with a pMHx. significant for alcoholism, cirrhosis, and hepatitis C., who presented with AMS and dyspnea and who was under ICU care for airway monitoring, and hypotension. 24-hour events: The patient is remained hemodynamically stable off pressors. We significantly decreased his benzodiazepines with improvement in his level of encephalopathy and delirium. He remains intermittently tachypneic. No fevers. Recommendations: Neuro - - Toxic metabolic encephalopathy: Improved with decreasing benzodiazepines. Continue high-dose thiamine and allow sensorium to clear. If agitation becomes a problem, could consider Zyprexa or Geodon however QTC is slightly prolonged. - Patient has significant risk factors for delirium with ICU setting, ETOH withdrawal, concern for infection, and benzodiazepine use. Will continue to orient patient, lights and TV on during the day. Cardiac - - Previous hypotension resolved and likely multifactorial. Blood pressure currently adequate. Holding additional albumin for now. Intermittent Tachycardia. - QTc: 496 Respiratory - - Patchy infiltrates on CT scan concerning for pneumonia. See ID below. Currently on room air. Patient's mental status does not allow for incentive spirometry or other pulmonary toilet measures currently. GI - - Hepatic failure due to alcohol abuse. Completed course of N-acetylcysteine. Continue to trend LFTs. improving. Appreciate GI assistance. No evidence of ongoing bleeding. Ongoing alcohol abstinence is mandatory. Case management following and once the patient's mental status is appropriate we will discuss options for patient and family RENAL/LYTES - - Hypervolemic hyponatremia, resolved. Continue to trend. Electrolytes replaced per protocol. Continue to follow - given 20 mg Lasix IV given the last 3 days - - Smallwood in place to follow UOP closely - unable to remove Smallwood at this time given excoriated perineum and incontinence ENDO - - no concerns right now HEME - - Stable H&H. 10.2 & 28.8, continue to follow - thrombocytopenia 82 stable likely from liver disease ID - - Complete course of Azithromycin and Rocephin. Cultures remain negative, procalcitonin improved. Remains afebrile. If the patient should develop fever, repeat evaluation may be warranted including consideration for abdominal ultrasound and paracentesis. INTEGUMENTARY - - no acute concerns PSYCH - - patient history concerning for severe depression and would likely benefit from outpatient management LINES/IV ACCESS - - PIV intact., Smallwood in place DVT PROPHYLAXIS -subcu heparin Supervising Physician Co-Signing Physician Notes Patient seen and examined. Discussed on multidisciplinary rounds and with family practice resident and bedside nurse. Agree with assessment and plan as noted below. Patient sensorium continues to clear with decreasing his benzodiazepines. Continues to manifest toxic metabolic encephalopathy which is clearing. We will pursue swallow study today in hopes of advancing to p.o. intake. Continue d iuretics. Transition to oral Lasix and Aldactone once able to manage pills. The patient's hemodynamics have been stable. At this point time I think he is appropriate to transfer back to the medicine service out of the intensive care unit. We will sign off once he leaves ICU status. Feel free to contact us if we can be of additional assistance Subjective Awake and following commands. Pain in his bottom. Denies chest pain, admits shortness of breath. Discussing with the hospitalist Dr. Shane about potentially having him transferred out of the ICU today. 24: He has had soft green stool overnight with no signs of GIB. Review of Systems Review of Systems: - only able to obtain a few ROS (per HPI) given patients sleepiness. Physical Exam Constitutional: + obese and + altered mental status ENMT: external ear and nose normal, oropharynx normal Neck: normal visual inspection Respiratory: no respiratory distress and does not use accessory muscles Cardiovascular: RRR, no murmur, no edema Extremities: + edema Gastrointestinal (Abdomen): - soft, slightly tender to palpation of the RUQ, no guarding Skin: + jaundice Neurologic: Speech / Cognition: + abnormal speech (garbled) Psychiatric: - oriented to person and place Results & Data Results & Data ([facility]) Vital Signs (Past 12 Hours) Vital Signs Temp Pulse Resp BP Pulse Ox 05/16/20 08:00 95 H 38 H 93 05/16/20 07:55 36.8 C 94 H 35 H 87/49 L 92 05/16/20 07:54 95 H 30 H 86/53 L 05/16/20 07:30 97 H 33 H 105/69 05/16/20 07:00 93 H 33 H 98 05/16/20 05:30 82 39 H 100/63 96 05/16/20 04:30 87 38 H 105/79 93 05/16/20 03:30 36.9 C 81 31 H 112/76 94 05/16/20 02:30 81 34 H 103/73 98 05/16/20 01:30 79 29 H 94/62 L 100 05/16/20 00:30 96 H 18 106/71 96 05/16/20 00:00 88 38 H 93 05/15/20 23:30 36.9 C 89 38 H 90/65 L 94 05/15/20 22:30 91 H 35 H 103/70 94 05/15/20 21:30 102 H 23 102/69 94 CBC Results Results Complete Blood Count Results: RBC 3.10 M/uL (4.7-6.1) L 05/16/20 WBC 8.07 K/uL (4.8-10.8) 05/16/20 Hgb 11.6 g/dL (14.0-18.0) L 05/16/20 Hct 34.6 % (42-52) L 05/16/20 Plt Count 81 K/uL (130-400) L 05/16/20 Chemistry (BMP) Results BMP Results: Sodium 138 mmol/L (136-145) 05/16/20 Potassium 3.6 mmol/L (3.5-5.1) 05/16/20 Chloride 104 mmol/L (98-107) 05/16/20 BUN 8 mg/dl (7-18) 05/16/20 Creatinine 0.79 mg/dl (0.6-1.4) 05/16/20 Glucose 82 mg/dl (70-99) 05/16/20 Resident Activity Tracking Resident Involvement: Resident Care Provided Care Provided: [facility]
[2020-05-16] MEDS: cefTRIAXone SODIUM 2,000 MG in DEXTROSE 5% 50 ML IV SCH (09:23)
[2020-05-16] MEDS ORDERED: FUROSEMIDE 20 MG in SYRINGE 0 ML IV ONE (09:30)
--- NOTE | 2020-05-16 11:37 | Hospitalist Progress Note ---
Date of Service May 16, 2020 Assessment & Plan (1) Acute respiratory failure with hypoxia: 2nd pneumonia and volume overload from acute hepatitis as well as systolic CHF continue IV rocephin continue diuresis with goal of net negative 1.5 to 2L/day continue supportive care (2) Acute alcoholic hepatitis: significant acute liver failure 2nd to etoh. transaminases improving but t./d. bili continue to rise. INR mildly elevated. s/p NAC protocol. remains on pentoxifylline in spencer of steroids due to high Madrey's discriminant function score in the setting of a pneumonia process. cont supportive care, serial labs, etc. ammonia levels have been consistently normal. (3) Systolic CHF: acute/chronic ef 40-45% continue diuresis ultimately need to resume coreg albeit at lower dose (4) Acute metabolic encephalopathy: multifactorial. metabolic from infection, acute liver injury, etc. possibly toxic from copious IV ativan - none in 48 hours at this point. mentation improved today. CT head 05/11 wnl. on high-dose thiamine IV for prevention of Wernicke's encephalopathy. VBG w/o hypercarbia. (5) Liver cirrhosis: 2nd to etoh. cannot rule out HepC contributing. Ab is +; RNA viral load pending. Appreciate GI consultation and recs Treating acute liver injury as above. (6) Pneumonia: b/l community-acquired vs aspiration cont rocephin - day #5; plan 7-day course (7) Acute hyponatremia: resolved 119 at admission marked improvement to 138 likely multifactorial in origin BMP am (8) Tobacco use disorder: nicoderm patch daily (9) Alcohol withdrawal: received IV ativan up until 2 days ago; then ativan held due to excessive sedation tachycardia likely represents ongoing withdrawal (10) Ischemic cardiomyopathy: EF 40-45% on echo today ultimately needs SARI and BB back cont to diurese (11) Hepatitis C: Ab + RNA viral load pending (12) Depression: needs Rx once mentation improved and able to take meds (13) Alcohol dependence: states she wants rehab for patient post-d/c cont high-dose thiamine, folic acid etoh withdrawal protocol (14) Hypokalemia: replaced resolved serial labs (15) Hypomagnesemia: replaced resolved serial labs (16) Dysphagia: failed swallow eval today keep NPO repeat eval on Tuesday (17) Muscle weakness: severe weakness on exam critical illness myopathy? other? check CPK in am PT, OT (18) DVT prophylaxis: heparin SC spoke with pt's by phone - gave update on 05/14 and 05/16 all questions answered to transfer from ICU to PCU today PT, OT Admission and Anticipated Discharge Date Admission Date: May 11, 2020 Subjective patient more awake and alert today. able to answer my questions. he has a cough, and is dyspneic with lying in bed. he c/o upper abdominal pain. he c/o weakness. denies chest pain. tele overnight - sinus tach. Review of Systems Constitutional: + fatigue and + weakness; no fever Respiratory: + cough and + dyspnea Cardiovascular: no chest pain Gastrointestinal: + abdominal pain; no nausea and no vomiting Physical Exam Constitutional: + acute distress (tachypneic) and + obese more awake, alert today Eyes: + scleral abnormality (icterus ) and PERRL ENMT: external ear and nose normal, oropharynx normal Respiratory: + cough and + tachypneic Auscultation: + crackles (B/l bases ); no wheezes Cardiovascular: Rate/Rhythm: regular rhythm and + tachycardic Heart Sounds: normal S1 and normal S2; no murmur Vessels: + JVD, posterior tibial pulses present and dorsalis pedis pulses present Extremities: + edema (trace b/l ) Gastrointestinal (Abdomen): Inspection/Auscultation: + abdomen distended and normal bowel sounds Percussion/Palpation: + abdomen tender (epigastric area ); no guarding and no hepatosplenomegaly Skin: + jaundice (To waistline ) Psychiatric: Orientation: alert, oriented to person and oriented to place; + not oriented to time Results & Data Results & Data ([facility]) Vital Signs (Past 12 Hours) Vital Signs Temp Pulse Resp BP Pulse Ox 05/16/20 10:00 117 H 28 H 95 05/16/20 09:30 96 H 27 H 101/72 94 05/16/20 09:00 102 H 31 H 93 05/16/20 08:30 91 H 36 H 101/64 95 05/16/20 08:00 95 H 38 H 93 05/16/20 07:55 36.8 C 94 H 35 H 87/49 L 92 05/16/20 07:54 95 H 30 H 86/53 L 05/16/20 07:30 97 H 33 H 105/69 05/16/20 07:00 93 H 33 H 98 05/16/20 05:30 82 39 H 100/63 96 05/16/20 04:30 87 38 H 105/79 93 05/16/20 03:30 36.9 C 81 31 H 112/76 94 05/16/20 02:30 81 34 H 103/73 98 05/16/20 01:30 79 29 H 94/62 L 100 05/16/20 00:30 96 H 18 106/71 96 05/16/20 00:00 88 38 H 93 Laboratory Results Laboratory Results - last 24 hr 05/12/20 05/15/20 05/16/20 10:01 23:26 04:27 WBC RBC Hgb Hct MCV MCH MCHC RDW Std Deviation RDW Coeff of [place] Plt Count MPV Immature Gran % (Auto) Neut % (Auto) Lymph % (Auto) [place] % (Auto) Eos % (Auto) Baso % (Auto) Neut # (Auto) Lymph # (Auto) [place] # (Auto) Eos # (Auto) Baso # (Auto) Immature Gran # (Auto) Target Cells PT INR Sodium 138 Potassium 3.6 Chloride 104 Carbon Dioxide 26 Anion Gap 8.0 BUN 8 Creatinine 0.79 Est Cr Clr Drug Dosing 109.9 Est GFR ( Amer) 115.5 Est GFR (Non-Af Amer) 99.7 BUN/Creatinine Ratio 10.1 Glucose 82 POC Glucose 86 Calcium 6.7 L Phosphorus 1.9 L Magnesium 1.9 Total Bilirubin 16.9 H Direct Bilirubin 13.2 H AST 99 H ALT 72 Alkaline Phosphatase 196 H Total Protein 5.0 L Albumin 1.8 L CMV IgM Ab <30.00 CMV IgG Ab/TORCH >10.00 H Hepatitis A IgM Ab NON-REACTIVE Hep B Core IgM Ab NON-REACTIVE HSV I IgG Ab 29.80 H HSV I IgM TORCH Negative HSV II IgG <0.90 HSV II IgM TORCH Negative 05/16/20 05/16/20 05/16/20 04:27 05:15 13:08 WBC 8.07 RBC 3.10 L Hgb 11.6 L Hct 34.6 L MCV 111.6 H MCH 37.4 H MCHC 33.5 RDW Std Deviation 67.7 H RDW Coeff of [place] 16.9 H Plt Count 81 L MPV 10.8 H Immature Gran % (Auto) 1.9 Neut % (Auto) 78.7 Lymph % (Auto) 9.8 [place] % (Auto) 8.7 Eos % (Auto) 0.5 Baso % (Auto) 0.4 Neut # (Auto) 6.36 Lymph # (Auto) 0.79 L [place] # (Auto) 0.70 H Eos # (Auto) 0.04 Baso # (Auto) 0.03 Immature Gran # (Auto) 0.15 H Target Cells 1+ PT 14.6 H INR 1.4 H Sodium Potassium Chloride Carbon Dioxide Anion Gap BUN Creatinine Est Cr Clr Drug Dosing Est GFR ( Amer) Est GFR (Non-Af Amer) BUN/Creatinine Ratio Glucose POC Glucose 109 H Calcium Phosphorus Magnesium Total Bilirubin Direct Bilirubin AST ALT Alkaline Phosphatase Total Protein Albumin CMV IgM Ab CMV IgG Ab/TORCH Hepatitis A IgM Ab Hep B Core IgM Ab HSV I IgG Ab HSV I IgM TORCH HSV II IgG HSV II IgM TORCH Diagnostic Findings echo - EF 40-45%; mild global hypokinesis; grade 1 diastolic dysfunction; aortic root dilatation PG Care Time/CCT Total # of Minutes Spent Total Time Spent with Patient: Total time spent is greater than 50% in coordi nation of care (as documented) at patient's floor/unit and/or counseling patient: Coding Level of Care Code 76722 Subseq Hosp Care Lvl 3 Diagnoses Acute respiratory failure with hypoxia J96.01 Acute alcoholic hepatitis K70.10 Systolic CHF I50.20 Acute metabolic encephalopathy G93.41 Liver cirrhosis K74.60 Pneumonia J18.9 Acute hyponatremia E87.1 Tobacco use disorder F17.200 Alcohol withdrawal F10.239 Ischemic cardiomyopathy I25.5 Hepatitis C B18.2 Hepatic coma status: without hepatic coma Viral hepatitis chronicity: chronic Depression F32.9 Alcohol dependence F10.229 Complication of substance-induced condition: with unspecified complication Substance use status: with intoxication Hypokalemia E87.6 Hypomagnesemia E83.42 Dysphagia R13.10 Dysphagia type: unspecified Muscle weakness M62.81 DVT prophylaxis Z29.9 (1) Alcohol dependence Complication of substance-induced condition: with unspecified complication Substance use status: with intoxication Qualified Code(s): F10.229 - Alcohol dependence with intoxication, unspecified (2) Hepatitis C Hepatic coma status: without hepatic coma Viral hepatitis chronicity: chronic Qualified Code(s): B18.2 - Chronic viral hepatitis C (3) Dysphagia Dysphagia type: unspecified Qualified Code(s): R13.10 - Dysphagia, unspecified
--- NOTE | 2020-05-16 13:45 | Billing Data ---
Date of Service May 16, 2020 Coding Level of Care Code 72293 Subseq Hosp Care Lvl 3
[2020-05-16 14:32] LABS: CMV IgG Antibody >10.00 U/mL; CMV IgM Antibody <30.00 AU/mL; Hepatitis A Antibody IgM NON-REACTIVE (NON-REACTIVE); Hepatitis B Core Antibody IgM NON-REACTIVE (NON-REACTIVE); Herpes Simplex Ab IgG-2 <0.90 index
--- NOTE | 2020-05-16 16:28 | XCELERA ---
[id number] \\[id number]
[2020-05-17 06:07] LABS: Basophils # (auto) 0.04 K/uL (0-0.2); Basophils % (auto) 0.4 %; Echinocytes 1+; Eosinophils # (auto) 0.03 K/uL (0-0.5); Eosinophils % (auto) 0.3 %; Hematocrit (blood only) 35.8 % (42-52); Hemoglobin 11.8 g/dL (14.0-18.0); Immature Granulocytes # (auto) 0.18 K/uL (0.00-0.02); Immature Granulocytes % (auto) 1.9 %; Lymphocytes % (auto) 9.7 %; Macrocytosis Present; Mean Corpuscular Hemoglobin 36.9 pg (25-34); Mean Corpuscular Volume 111.9 fL (80-100); Monocytes # (auto) 0.83 K/uL (0.11-0.59); Neutrophils # (auto) 7.29 K/uL (1.4-6.5); Neutrophils % (auto) 78.7 %; Platelet Count 94 K/uL (130-400); Platelet Estimate Decreased (Normal); Polychromasia 1+; RDW Coefficient of Variation 19.3 % (11.5-14.5); RDW Standard Deviation 75.2 fL (36.4-46.3); Target Cells 1+; White Blood Count 9.27 K/uL (4.8-10.8)
[2020-05-17 06:11] LABS: INR 1.3 (0.9-1.1); Prothrombin Time 13.9 Seconds (9.0-12.0)
[2020-05-17 06:29] LABS: Albumin Level 1.7 gm/dl (3.4-5.0); BUN Creatinine Ratio 14.9 (10-20); Bilirubin,Total 16.9 mg/dl (0.2-1); Calcium 6.3 mg/dl (8.5-10.1); Creatinine Clr Calc Pharmacy 111.3 ml/min; Est GFR (African American) 116.1; Est GFR (Non-African American) 100.2; Potassium 3.1 mmol/L (3.5-5.1); Total Protein 5.1 gm/dl (6.4-8.2)
[2020-05-17 06:49] LABS: Bilirubin Direct 13.1 mg/dl (0-0.2)
[2020-05-17] MEDS: PENTOXIFYLLINE 400MG EXT REL TAB PO SCH ×3 (07:37→20:27)
[2020-05-17] MEDS: FOLIC ACID 1 MG in SYRINGE 9.8 ML IV SCH (07:43)
[2020-05-17] MEDS: HEPARIN SOD 5,000 UNIT/0.5 ML VIAL SQ SCH ×2 (07:43→21:22)
[2020-05-17] MEDS: NICOTINE 21 MG/24 HR TDSY TD SCH (07:44)
[2020-05-17] MEDS: PANTOprazole 40 MG in SYRINGE 0 ML IV SCH ×2 (07:44→20:26)
[2020-05-17] MEDS: NYSTATIN OINT 15 GM TUBE EXT SCH ×5 (07:44→21:15)
[2020-05-17] MEDS: POTASSIUM CHLORIDE / WTR 10 MEQ/100 ML PLCT IV SCH ×4 (08:25→22:24)
[2020-05-17] MEDS ORDERED: FUROSEMIDE 20 MG in SYRINGE 0 ML IV SCH (09:00)
[2020-05-17] MEDS: cefTRIAXone SODIUM 2,000 MG in DEXTROSE 5% 50 ML IV SCH (09:33)
--- NOTE | 2020-05-17 11:50 | Hospitalist Progress Note ---
Date of Service May 17, 2020 Assessment & Plan (1) Acute respiratory failure with hypoxia: 2nd pneumonia and volume overload (from acute hepatitis as well as systolic CHF) cxr today with overall improved infiltrates continue IV rocephin - day #6 of such give 1 additional dose of IV lasix today continue supportive care repeat VBG due to ongoing tachypnea (2) Abdominal pain: uncertain cause lipase checked today - normal c diff negative remains on PPI IV for possibility of gastritis, etc recent colitis on CT but again c diff and stool cx negative may need repeat CT to reassess abdomen check lactate (3) Acute alcoholic hepatitis: significant acute liver failure 2nd to etoh. transaminases improving but t./d. bili continue to rise modestly. INR mildly elevated but stable. s/p NAC protocol. was receiving pentoxifylline in spencer of steroids due to high Madrey's discriminant function score but now unable to take PO. start IV steroids if NPO status continues ?? would need to d/w GI. cont supportive care, serial labs, etc. ammonia levels have been consistently normal. recheck ammonia level this evening. (4) Systolic CHF: acute/chronic ef 40-45% improved clinically/radiographically 1 more dose of lasix today then stop diuresis ultimately need to resume coreg albeit at lower dose (5) Acute metabolic encephalopathy: multifactorial. metabolic from infection, acute liver injury, etc. possibly toxic from copious IV ativan (while he was in ICU). he was quite confused today. this, along with tachypnea/tachycardia/tremors - suggests ongoing etoh withdrawal. last etoh drink - 7-8 days ago?? CT head 05/11 and today both negative. on high-dose thiamine IV for prevention of Wernicke's encephalopathy. VBGs w/o hypercarbia. (6) Liver cirrhosis: 2nd to etoh. HepC RNA negative. Appreciate GI consultation and recs Treating acute liver injury as above. (7) Pneumonia: b/l community-acquired vs aspiration cont rocephin - day #6; plan 7-day course (8) Acute hyponatremia: resolved 119 at admission BMP am (9) Tobacco use disorder: nicoderm patch daily (10) Alcohol withdrawal: received IV ativan while in ICU. the ativan was stopped due to excess sedation in setting of copious use. today he appeared to be having ongoing withdrawal. IV ativan given for his symptoms but made him quite groggy. HOLD additional ativan. if he needs sedation/withdrawal Rx - transfer back to ICU for precedex? (11) Ischemic cardiomyopathy: EF 40-45% on echo this admission ultimately needs SARI and BB back stop diuresis after today's dose (12) Hepatitis C: Ab + but RNA viral load NEGATIVE thus, patient does NOT have hepatitis C (13) Depression: needs Rx once mentation improved and able to take meds (14) Alcohol dependence: states she wants rehab for patient post-d/c cont high-dose thiamine, folic acid was drinking 30 beers/day pre-hospitalization (15) Hypokalemia: ongoing replace IV serial labs (16) Hypomagnesemia: replaced resolved serial labs (17) Dysphagia: failed swallow eval again today keep NPO repeat eval on Tuesday CT head w/o stroke on 2 occasions CPK wnl dysphagia could be from severe encephalopathy leading to poor swallow function at some point if he is stable enough may need MRI brain to r/o subacute process, etc (18) Muscle weakness: severe weakness on exam CPK wnl critical illness myopathy? other? PT, OT when able (19) DVT prophylaxis: heparin SC spoke with pt's by phone - gave extensive updates on 05/14, 05/16, and 05/17 all questions answered PT, OT low threshold for transfer back to ICU for sedation and monitoring care d/w night resident and night ICU provider total time today - 75 minutes - includes 2 bedside visits, phone calls to /night time resident/night time ICU provider, care coordination with nursing staff, etc Admission and Anticipated Discharge Date Admission Date: May 11, 2020 Subjective saw patient twice today. first visit was on AM rounds. just before my arrival he was trying to climb out of bed per staff. during my assessment he knew he was at "[facility]" but could not tell me the month or year. he c/o abdominal pain and mild dyspnea. no vomiting. still with loose stools per staff. was seen by speech therapy - failed swallow eval again. as the day continued the patient was tachycardic, tachypneic, and had ongoing tremors. was very confused - asking for beer, hallucinating, etc. ativan ultimately given per etoh withdrawal protocol. he received a total of 6mg over several hours. I was called by nurses to reassess him due to ongoing tachypnea and confusion. during my assessment (late afternoon) he was groggy but could answer questions. he was indeed tachypneic - more so than earlier in the day. he was coughing as well. Review of Systems Respiratory: + cough and + dyspnea Cardiovascular: no chest pain Gastrointestinal: + abdominal pain and + diarrhea/loose stools; no nausea and no vomiting Physical Exam Constitutional: + acute distress (tachypneic), + ill appearing, + obese, + altered mental status (confused) and + frail appearing Eyes: + scleral abnormality (icterus ) and PERRL ENMT: external ear and nose normal, oropharynx normal Respiratory: + respiratory distress, + retractions (mild), + cough and + tachypneic Auscultation: no crackles and no wheezes Cardiovascular: Rate/Rhythm: regular rhythm and + tachycardic Heart Sounds: normal S1 and normal S2; no murmur Vessels: posterior tibial pulses present and dorsalis pedis pulses present; no JVD Extremities: + edema (<1+ b/l ) Gastrointestinal (Abdomen): Inspection/Auscultation: + abdomen distended and normal bowel sounds Percussion/Palpation: + abdomen tender (epigastric area but also other regions today (worst is epigastric)); no guarding and no hepatosplenomegaly Skin: + jaundice (To upper thighs) Neurologic: + confused Motor/Sensory: + tremor able to move both arms/legs symmetrically but very weak in doing so Psychiatric: Orientation: alert, oriented to person and oriented to place; + not oriented to time Results & Data Results & Data ([facility]) Vital Signs (Past 12 Hours) Vital Signs Temp Pulse Pulse Resp BP BP Pulse Ox 05/17/20 11:09 109 H 05/17/20 11:07 37.0 C 106 H 14 104/74 94 05/17/20 08:00 37.2 C 96 H 24 94 05/17/20 07:30 96 H 37 H 115/78 94 05/17/20 06:00 104 H 42 H 93 05/17/20 05:32 96 H 19 122/70 93 05/17/20 04:45 98 H 27 H 95/73 L 92 05/17/20 04:32 95 H 25 H 69/49 L 08/29/20 04:00 37.1 C 93 H 27 H 80 L 05/17/20 03:30 90 33 H 106/70 05/17/20 02:30 93 H 36 H 106/93 92 05/17/20 01:30 91 H 21 97/68 L 96 05/17/20 00:30 95 H 36 H 103/74 92 05/17/20 00:16 37 C 95 H 32 H 98/71 L 93 05/17/20 00:00 96 H Laboratory Results Laboratory Results - last 24 hr 05/12/20 05/12/20 05/16/20 10:01 10:01 13:08 WBC RBC Hgb Hct MCV MCH MCHC RDW Std Deviation RDW Coeff of [place] Plt Count Immature Gran % (Auto) Neut % (Auto) Lymph % (Auto) [place] % (Auto) Eos % (Auto) Baso % (Auto) Neut # (Auto) Lymph # (Auto) [place] # (Auto) Eos # (Auto) Baso # (Auto) Immature Gran # (Auto) Platelet Estimate Polychromasia Macrocytosis Target Cells Echinocytes PT INR Sodium Potassium Chloride Carbon Dioxide Anion Gap BUN Creatinine Est Cr Clr Drug Dosing Est GFR ( Amer) Est GFR (Non-Af Amer) BUN/Creatinine Ratio Glucose POC Glucose 109 H Calcium Magnesium Total Bilirubin Direct Bilirubin AST ALT Alkaline Phosphatase Total Creatine Kinase Total Protein Albumin CMV IgM Ab <30.00 CMV IgG Ab/TORCH >10.00 H Hepatitis A IgM Ab NON-REACTIVE Hep B Core IgM Ab NON-REACTIVE HCV RNA Qual (TMA) NOT DETECTED HSV I IgG Ab 29.80 H HSV I IgM TORCH Negative HSV II IgG <0.90 HSV II IgM TORCH Negative 05/17/20 05/17/20 05/17/20 04:40 04:40 04:40 WBC 9.27 RBC 3.20 L Hgb 11.8 L Hct 35.8 L MCV 111.9 H MCH 36.9 H MCHC 33.0 RDW Std Deviation 75.2 H RDW Coeff of [place] 19.3 H Plt Count 94 L Immature Gran % (Auto) 1.9 Neut % (Auto) 78.7 Lymph % (Auto) 9.7 [place] % (Auto) 9.0 Eos % (Auto) 0.3 Baso % (Auto) 0.4 Neut # (Auto) 7.29 H Lymph # (Auto) 0.90 L [place] # (Auto) 0.83 H Eos # (Auto) 0.03 Baso # (Auto) 0.04 Immature Gran # (Auto) 0.18 H Platelet Estimate Decreased L Polychromasia 1+ Macrocytosis Present Target Cells 1+ Echinocytes 1+ PT Cancelled INR Cancelled Sodium Cancelled Potassium Cancelled Chloride Cancelled Carbon Dioxide Cancelled Anion Gap Cancelled BUN Cancelled Creatinine Cancelled Est Cr Clr Drug Dosing Cancelled Est GFR ( Amer) Cancelled Est GFR (Non-Af Amer) Cancelled BUN/Creatinine Ratio Cancelled Glucose Cancelled POC Glucose Calcium Cancelled Magnesium Cancelled Total Bilirubin Cancelled Direct Bilirubin Cancelled AST Cancelled ALT Cancelled Alkaline Phosphatase Cancelled Total Creatine Kinase Cancelled Total Protein Cancelled Albumin Cancelled CMV IgM Ab CMV IgG Ab/TORCH Hepatitis A IgM Ab Hep B Core IgM Ab HCV RNA Qual (TMA) HSV I IgG Ab HSV I IgM TORCH HSV II IgG HSV II IgM TORCH 05/17/20 05/17/20 05:25 05:25 WBC RBC Hgb Hct MCV MCH MCHC RDW Std Deviation RDW Coeff of [place] Plt Count Immature Gran % (Auto) Neut % (Auto) Lymph % (Auto) [place] % (Auto) Eos % (Auto) Baso % (Auto) Neut # (Auto) Lymph # (Auto) [place] # (Auto) Eos # (Auto) Baso # (Auto) Immature Gran # (Auto) Platelet Estimate Polychromasia Macrocytosis Target Cells Echinocytes PT 13.9 H INR 1.3 H Sodium 141 Potassium 3.1 L Chloride 107 Carbon Dioxide 26 Anion Gap 8.0 BUN 12 Creatinine 0.78 Est Cr Clr Drug Dosing 111.3 Est GFR ( Amer) 116.1 Est GFR (Non-Af Amer) 100.2 BUN/Creatinine Ratio 14.9 Glucose 90 POC Glucose Calcium 6.3 L Magnesium 2.0 Total Bilirubin 16.9 H Direct Bilirubin 13.1 H AST 92 H ALT 69 Alkaline Phosphatase 186 H Total Creatine Kinase 69 Total Protein 5.1 L Albumin 1.7 L CMV IgM Ab CMV IgG Ab/TORCH Hepatitis A IgM Ab Hep B Core IgM Ab HCV RNA Qual (TMA) HSV I IgG Ab HSV I IgM TORCH HSV II IgG HSV II IgM TORCH Diagnostic Findings CT head - no acute process PG Care Time/CCT Total # of Minutes Spent Total Time Spent with Patient: Total time spent is greater than 50% in coordination of care (as documented) at patient's floor/unit and/or counseling patient: Prolonged Care Time Prolonged Care Time: Yes Total Prolonged Care Time: 75 Coding Level of Care Code 64432 Subseq Hosp Care Lvl 3 (25 - SIGNIFICANT, SEPARATELY IDENTIFIABLE ) Diagnoses Acute respiratory failure with hypoxia J96.01 Abdominal pain R10.9 Acute alcoholic hepatitis K70.10 Systolic CHF I50.20 Acute metabolic encephalopathy G93.41 Liver cirrhosis K74.60 Pneumonia J18.9 Acute hyponatremia E87.1 Tobacco use disorder F17.200 Alcohol withdrawal F10.239 Ischemic cardiomyopathy I25.5 Hepatitis C B18.2 Hepatic coma status: without hepatic coma Viral hepatitis chronicity: chronic Depression F32.9 Alcohol dependence F10.229 Complication of substance-induced condition: with unspecified complication Substance use status: with intoxication Hypokalemia E87.6 Hypomagnesemia E83.42 Dysphagia R13.10 Dysphagia type: unspecified Muscle weakness M62.81 DVT prophylaxis Z29.9 Additional Codes Prolonged Care Time - Prolonged Care Time: Yes ([id number]) Time Spent (min) 75 (1) Alcohol dependence Complication of substance-induced condition: with unspecified complication Substance use status: with intoxication Qualified Code(s): F10.229 - Alcohol dependence with intoxication, unspecified (2) Dysphagia Dysphagia type: unspecified Qualified Code(s): R13.10 - Dysphagia, unspecified (3) Hepatitis C Hepatic coma status: without hepatic coma Viral hepatitis chronicity: chronic Qualified Code(s): B18.2 - Chronic viral hepatitis C
[2020-05-17] MEDS: THIAMINE HCL 200 MG in SODIUM CHLORIDE 0.9% 50 ML IV SCH ×2 (12:44→20:26)
--- NOTE | 2020-05-17 13:07 | CT Scan Report ---
CT SCAN OF THE BRAIN WITHOUT IV CONTRAST CLINICAL HISTORY: Dysphagia. Generalized weakness. COMPARISON STUDY: CT of the brain dated 05/11/2020. TECHNIQUE: Unenhanced axial CT scan of the brain is performed from the vertex to the skull base. A d ose lowering technique was utilized adhering to the principles of ALARA. The patient was scanned twic e due to motion artifact. CT DOSE: 614.27 mGy.cm FINDINGS: Brain parenchyma: There is minimal subcortical and periventricular microangiopathic disease. There is no hemorrhage, mass effect, or evidence of acute territorial ischemia by CT criteria. Tavarez-white mat ter differentiation is preserved. No extra-axial fluid collection is seen. Ventricles, sulci, cisterns: Normal in configuration. Intracranial vasculature: There is atherosclerotic calcification of the cavernous carotid arteries. Calvarium: Unremarkable. Soft tissues: A small metallic foreign body is present in the facial soft tissues on image #7. Sinuses and mastoids: The visualized paranasal sinuses are clear. There is a left mastoid effusion. T he right mastoid air cells are well pneumatized. Orbits: The bony orbits are grossly intact. IMPRESSION: There is no hemorrhage, mass effect, or evidence of acute territorial ischemia by CT donis rabago. ACT 112: Negative or not required by law. Electronically signed by: Rusty Francois M.D. 05/17/2020 1:06 PM
[2020-05-17] MEDS ORDERED: LORazepam 2 MG/4 ML VIAL IV PRN (16:50)
[2020-05-17] MEDS ORDERED: ATIVAN IV ALCOHOL WITHDRAWL IV PRN (16:50)
[2020-05-17] MEDS ORDERED: LORazepam 1 MG/2 ML VIAL IV PRN (16:50)
[2020-05-17] MEDS: LORazepam 3 MG/6 ML VIAL IV PRN ×2 (17:08→18:23)
[2020-05-17 19:44] LABS: Base Excess VBG 0.6 mEq/L; pH VBG 7.45 (7.36-7.41)
--- NOTE | 2020-05-17 19:46 | XRay Report ---
SINGLE VIEW CHEST CLINICAL HISTORY: Tachypnea. FINDINGS: An AP, portable, semierect chest radiograph is compared to study dated 05/15/2020. Correlati on is made with chest CT dated 05/11/2020. The examination is degraded by portable technique and patie nt rotation. The heart is mildly enlarged noting atherosclerotic calcification of the thoracic aorta. Pulmonary vascular congestion has modestly improved. There are low lung volumes with bibasilar atele ctasis. Multifocal bilateral airspace opacities have improved from previous. No large pleural effusio n or pneumothorax is seen. The bony thorax is grossly intact. IMPRESSION: 1. Bilateral patchy airspace opacities have improved as compared 05/15/2020. 2. Mild cardiac enlargement. Pulmonary vascular congestion has also improved. 3. Low lung volumes. ACT 112: Negative or not required by law. Electronically signed by: Rusty Francois M.D. 05/17/2020 7:45 PM
[2020-05-18 07:19] LABS: Hematocrit (blood only) 37.3 % (42-52); Hemoglobin 12.4 g/dL (14.0-18.0); Mean Corpuscular Hemoglobin 37.5 pg (25-34); Mean Corpuscular Hgb Conc 33.2 g/dL (32-36); Mean Corpuscular Volume 112.7 fL (80-100); RDW Coefficient of Variation 17.3 % (11.5-14.5); RDW Standard Deviation 71.1 fL (36.4-46.3); Red Blood Count 3.31 M/uL (4.7-6.1); White Blood Count 10.21 K/uL (4.8-10.8)
[2020-05-18 07:31] LABS: INR 1.3 (0.9-1.1); Prothrombin Time 13.5 Seconds (9.0-12.0)
[2020-05-18 07:35] LABS: Platelet Count 95 K/uL (130-400)
[2020-05-18 07:42] LABS: Basophils # (auto) 0.02 K/uL (0-0.2); Basophils % (auto) 0.2 %; Eosinophils # (auto) 0.06 K/uL (0-0.5); Eosinophils % (auto) 0.6 %; Hypochromasia Present; Immature Granulocytes # (auto) 0.14 K/uL (0.00-0.02); Immature Granulocytes % (auto) 1.4 %; Lymphocytes # (auto) 0.79 K/uL (1.2-3.4); Lymphocytes % (auto) 7.7 %; Monocytes # (auto) 0.73 K/uL (0.11-0.59); Monocytes % (auto) 7.1 %; Neutrophils # (auto) 8.47 K/uL (1.4-6.5); Polychromasia 1+; Spherocytes 1+; Target Cells 1+
[2020-05-18 07:49] LABS: Albumin Level 1.6 gm/dl (3.4-5.0); Bilirubin,Total 15.8 mg/dl (0.2-1); Calcium 6.7 mg/dl (8.5-10.1); Creatinine Clr Calc Pharmacy 125.9 ml/min; Est GFR (African American) 122.9; Magnesium 2.1 mg/dl (1.8-2.4); Potassium 3.2 mmol/L (3.5-5.1); Total Protein 5.3 gm/dl (6.4-8.2)
[2020-05-18] MEDS: NYSTATIN OINT 15 GM TUBE EXT SCH ×4 (08:20→20:04)
[2020-05-18] MEDS: PENTOXIFYLLINE 400MG EXT REL TAB PO SCH ×2 (08:21→12:42)
[2020-05-18] MEDS: FOLIC ACID 1 MG in SYRINGE 9.8 ML IV SCH (08:21)
[2020-05-18] MEDS: THIAMINE HCL 200 MG in SODIUM CHLORIDE 0.9% 50 ML IV SCH ×2 (08:21→20:05)
[2020-05-18] MEDS: HEPARIN SOD 5,000 UNIT/0.5 ML VIAL SQ SCH ×2 (08:23→20:05)
[2020-05-18] MEDS: POTASSIUM CHLORIDE / WTR 10 MEQ/100 ML PLCT IV SCH ×3 (08:42→11:09)
[2020-05-18] MEDS: PANTOprazole 40 MG in SYRINGE 0 ML IV SCH ×2 (08:45→20:04)
[2020-05-18] MEDS: NICOTINE 21 MG/24 HR TDSY TD SCH (09:39)
[2020-05-18] MEDS: cefTRIAXone SODIUM 2,000 MG in DEXTROSE 5% 50 ML IV SCH (09:39)
--- NOTE | 2020-05-18 11:08 | Hospitalist Progress Note ---
Date of Service May 18, 2020 Assessment & Plan (1) Abdominal pain: ongoing. uncertain cause - gastritis? PUD? other? lipase wnl c diff negative remains on PPI IV for possibility of gastritis, etc repeat CT abd/pelvis with IV contrast today with minimal ascites and colitis but no other new findings. add carafate in the event it is gastritis or PUD causing his pain. alternatively the pain could be from liver capsule swelling. stool cx negative. (2) Acute respiratory failure with hypoxia: resolving 2nd pneumonia and volume overload (from acute hepatitis as well as systolic CHF) cxr 05/17 with overall improved infiltrates continue IV rocephin - day #7 of such; stop abx today tachypnea is from a respiratory alkalosis in the setting of multiple metabolic disturbances including his acute liver injury (3) Acute alcoholic hepatitis: significant acute liver failure 2nd to etoh. LFTs largely the same as yesterday. INR mildly elevated but stable. s/p NAC protocol. was receiving pentoxifylline in spencer of steroids due to high Madrey's discriminant function score in the setting of pneumonia but now unable to take PO meds reliably. will hold Trental and use IV steroids in spencer of PO prednisolone. cont supportive care, serial labs, etc. ammonia levels have been consistently normal including level on 05/17. (4) Systolic CHF: acute/chronic ef 40-45% now euvolemic no further lasix ultimately need to resume coreg albeit at lower dose (5) Acute metabolic encephalopathy: multifactorial. metabolic from infection (pneumonia), acute liver injury, etc. possibly toxic from copious IV ativan (while he was in ICU). CT head 05/11 and 05/17 negative or acute process. on high-dose thiamine IV for prevention of Wernicke's encephalopathy. VBGs w/o hypercarbia. 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 if mental status issues persist consider MRI brain but uncertain he would tolerate at this time. (6) Liver cirrhosis: 2nd to etoh. HepC RNA negative. Appreciate GI consultation and recs Treating acute liver injury as above. (7) Pneumonia: b/l community-acquired vs aspiration today is day #7 of rocephin; stop abx after today's dose O2 sats stable in RA with improved cxr yesterday (8) Acute hyponatremia: resolved 119 at admission BMP am for stability (9) Tobacco use disorder: nicoderm patch daily (10) Alcohol withdrawal: received IV ativan while in ICU. the ativan was stopped due to excess sedation in setting of copious use. he again did not tolerate IV ativan on 05/17 for apparent withdrawal symptoms. HOLDING additional ativan. if he needs sedation/withdrawal Rx - transfer back to ICU for precedex? (11) Ischemic cardiomyopathy: EF 40-45% on echo this admission ultimately needs SARI and BB back no further diuresis for now (12) Hepatitis C: Ab + but RNA viral load NEGATIVE thus, patient does NOT have hepatitis C (13) Depression: needs Rx once mentation improved and able to take meds would involve psych later this stay (14) Alcohol dependence: states she wants rehab for patient post-d/c cont high-dose thiamine, folic acid was drinking 30 beers/day pre-hospitalization (15) Hypokalemia: ongoing replace IV serial labs (16) Hypomagnesemia: replaced resolved (17) Dysphagia: repeat eval today improved enough to allow PO intake pureed diet ordered by speech CT head w/o stroke on 2 occasions CPK wnl dysphagia could be from severe encephalopathy leading to poor swallow function at some point he may need MRI brain to r/o subacute process if neurological function appears impaired (18) Muscle weakness: severe weakness on exam CPK wnl critical illness myopathy? PT, OT when able (19) DVT prophylaxis: heparin SC spoke with pt's at bedside today; reviewed plan of care following CT abd/pelvis I called & spoke with his by phone - reviewed CT with her cont PT, OT if able to participate low threshold for transfer back to ICU for sedation and monitoring if needed Admission and Anticipated Discharge Date Admission Date: May 11, 2020 Subjective patient ultimately improved through the night with modest improvement in mentation and his respiratory rates with holding any additional IV ativan. during my visit this am he was awake but groggy. he opened his eyes to commands. he followed other simple commands. he c/o abdominal pain. he said "I don't feel like eating." coughing throughout the visit. at bedside during the encounter. patient did better with swallowing today and will be placed on pureed diet. Review of Systems Constitutional: + fatigue and + anorexia Respiratory: + cough and + dyspnea Cardiovascular: no chest pain Gastrointestinal: + abdominal pain Physical Exam Constitutional: + acute distress (tachypneic), + ill appearing, + obese, + altered mental status (confused and groggy - modestly improved from 05/17 ) and + frail appearing Eyes: + scleral abnormality (icterus ) and PERRL ENMT: external ear and nose normal, oropharynx normal Respiratory: + cough and + tachypneic Auscultation: no crackles and no wheezes Cardiovascular: Rate/Rhythm: regular rhythm and + tachycardic Heart Sounds: normal S1 and normal S2; no murmur Vessels: posterior tibial pulses present and dorsalis pedis pulses present; no JVD Extremities: + edema (<1+ b/l ) Gastrointestinal (Abdomen): Inspection/Auscultation: + abdomen distended and normal bowel sounds Percussion/Palpation: + abdomen tender (epigastric region); no guarding and no hepatosplenomegaly Skin: + jaundice (To upper thighs) Neurologic: + confused Motor/Sensory: + tremor Psychiatric: Orientation: alert and oriented to person Results & Data Results & Data ([facility]) Vital Signs (Past 12 Hours) Vital Signs Temp Pulse Pulse Resp BP Pulse Ox 05/18/20 08:00 92 H 05/18/20 07:00 36.8 C 89 21 102/73 92 05/18/20 03:08 36.6 C 89 26 H 113/81 97 05/17/20 23:25 36.7 C 96 H 28 H 117/88 96 Laboratory Results Laboratory Results - last 24 hr 05/17/20 05/17/20 05/17/20 05:25 15:10 19:26 WBC RBC Hgb Hct MCV MCH MCHC RDW Std Deviation RDW Coeff of [place] Plt Count MPV Immature Gran % (Auto) Neut % (Auto) Lymph % (Auto) [place]rie % (Auto) Eos % (Auto) Baso % (Auto) Neut # (Auto) Lymph # (Auto) [place]rie # (Auto) Eos # (Auto) Baso # (Auto) Immature Gran # (Auto) Polychromasia Hypochromasia Spherocytes Target Cells PT INR VBG pH VBG pCO2 VBG pO2 VBG HCO3 VBG O2 Saturation VBG Base Excess Barometric Pressure Sodium Potassium 3.2 L Chloride Carbon Dioxide Anion Gap BUN Creatinine Est Cr Clr Drug Dosing Est GFR ( Amer) Est GFR (Non-Af Amer) BUN/Creatinine Ratio Glucose Lactate Calcium Magnesium Total Bilirubin Direct Bilirubin AST ALT Alkaline Phosphatase Ammonia Total Protein Albumin Lipase 88 Stl C. diff Tox B Gene Negative Cdiff Gene 05/17/20 05/17/20 05/17/20 19:26 19:26 19:26 WBC RBC Hgb Hct MCV MCH MCHC RDW Std Deviation RDW Coeff of [place] Plt Count MPV Immature Gran % (Auto) Neut % (Auto) Lymph % (Auto) [place] % (Auto) Eos % (Auto) Baso % (Auto) Neut # (Auto) Lymph # (Auto) [place]rie # (Auto) Eos # (Auto) Baso # (Auto) Immature Gran # (Auto) Polychromasia Hypochromasia Spherocytes Target Cells PT INR VBG pH 7.45 H VBG pCO2 35 L VBG pO2 38 VBG HCO3 24 VBG O2 Saturation 70.0 VBG Base Excess 0.6 Barometric Pressure 722.8 Sodium Potassium Chloride Carbon Dioxide Anion Gap BUN Creatinine Est Cr Clr Drug Dosing Est GFR ( Amer) Est GFR (Non-Af Amer) BUN/Creatinine Ratio Glucose Lactate 2.7 H* Calcium Magnesium Total Bilirubin Direct Bilirubin AST ALT Alkaline Phosphatase Ammonia < 10.0 L Total Protein Albumin Lipase Stl C. diff Tox B Gene 05/18/20 05/18/20 05/18/20 06:47 06:47 06:47 WBC 10.21 RBC 3.31 L Hgb 12.4 L Hct 37.3 L MCV 112.7 H MCH 37.5 H MCHC 33.2 RDW Std Deviation 71.1 H RDW Coeff of [place] 17.3 H Plt Count 95 L MPV 11.0 H Immature Gran % (Auto) 1.4 Neut % (Auto) 83.0 Lymph % (Auto) 7.7 [place]rie % (Auto) 7.1 Eos % (Auto) 0.6 Baso % (Auto) 0.2 Neut # (Auto) 8.47 H Lymph # (Auto) 0.79 L [place]rie # (Auto) 0.73 H Eos # (Auto) 0.06 Baso # (Auto) 0.02 Immature Gran # (Auto) 0.14 H Polychromasia 1+ Hypochromasia Present Spherocytes 1+ Target Cells 1+ PT 13.5 H INR 1.3 H VBG pH VBG pCO2 VBG pO2 VBG HCO3 VBG O2 Saturation VBG Base Excess Barometric Pressure Sodium 142 Potassium 3.2 L Chloride 109 H Carbon Dioxide 23 Anion Gap 10.0 BUN 15 Creatinine 0.68 Est Cr Clr Drug Dosing 125.9 Est GFR ( Amer) 122.9 Est GFR (Non-Af Amer) 106.0 BUN/Creatinine Ratio 22.0 H Glucose 81 Lactate Calcium 6.7 L Magnesium 2.1 Total Bilirubin 15.8 H Direct Bilirubin Pending AST 94 H ALT 74 Alkaline Phosphatase 171 H Ammonia Total Protein 5.3 L Albumin 1.6 L Lipase Stl C. diff Tox B Gene PG Care Time/CCT Total # of Minutes Spent Total Time Spent with Patient: Total time spent is greater than 50% in coordination of care (as documented) at patient's floor/unit and/or counseling patient: Coding Level of Care Code 29158 Subseq Hosp Care Lvl 3 Diagnoses Abdominal pain R10.13 Abdominal location: epigastric Acute respiratory failure with hypoxia J96.01 Acute alcoholic hepatitis K70.10 Systolic CHF I50.20 Acute metabolic encephalopathy G93.41 Liver cirrhosis K74.60 Pneumonia J18.9 Acute hyponatremia E87.1 Tobacco use disorder F17.200 Alcohol withdrawal F10.239 Ischemic cardiomyopathy I25.5 Hepatitis C B18.2 Hepatic coma status: without hepatic coma Viral hepatitis chronicity: chronic Depression F32.9 Alcohol dependence F10.229 Complication of substance-induced condition: with unspecified complication Substance use status: with intoxication Hypokalemia E87.6 Hypomagnesemia E83.42 Dysphagia R13.10 Dysphagia type: unspecified Muscle weakness M62.81 DVT prophylaxis Z29.9 (1) Alcohol dependence Complication of substance-induced condition: with unspecified complication Substance use status: with intoxication Qualified Code(s): F10.229 - Alcohol dependence with intoxication, unspecified (2) Dysphagia Dysphagia type: unspecified Qualified Code(s): R13.10 - Dysphagia, unspecified (3) Hepatitis C Hepatic coma status: without hepatic coma Viral hepatitis chronicity: chronic Qualified Code(s): B18.2 - Chronic viral hepatitis C (4) Abdominal pain Abdominal location: epigastric Qualified Code(s): R10.13 - Epigastric pain
[2020-05-18] MEDS ORDERED: IOVERSOL 100ml IV ONE (12:17)
[2020-05-18 12:40] LABS: Bilirubin Direct 12.2 mg/dl (0-0.2)
--- NOTE | 2020-05-18 13:17 | CT Scan Report ---
CT abd pelvis IV con only CLINICAL HISTORY: persistent epigastric pain; acute liver injury COMPARISON STUDY: 05/11/2020 TECHNIQUE: Patient was scanned in a dynamic helical fashion during intravenous administration of 93 c c of Optiray 320 A dose lowering technique was utilized adhering to the principles of ALARA. CT DOSE: 1418.26 mGy.cm FINDINGS: Lower chest: There are bibasilar interstitial and groundglass pulmonary opacities. Liver: There is severe hepatic steatosis. The liver is enlarged. There is trace perihepatic fluid. No focal masses are visualized. Gallbladder: No gallstones are visualized. There is pericholecystic fluid which may be secondary to h epatocellular disease Spleen: Mildly enlarged measuring 14.7 cm Pancreas: Unremarkable. Adrenal glands: Unremarkable. Kidneys: There is symmetric renal cortical enhancement. The kidneys are normal in size without hydron ephrosis. Bowel: There are no transition zones indicate bowel obstruction. There is colonic diverticulosis. The re is diffuse colonic wall thickening. This could indicate a pancolitis or could be secondary to hepa tocellular disease Peritoneum: There is a small amount of free intra-abdominal fluid. Vasculature: The abdominal aorta is normal in course and caliber. Adenopathy: None. Pelvic viscera: There is a joint Smallwood catheter Skeletal structures: No destructive osseous lesions are seen. IMPRESSION: 1. Severe hepatic steatosis. Hepatosplenomegaly. 2. Low volume ascites 3. No evidence of bowel obstruction. No evidence of free air 4. Diffuse colonic wall thickening. This could be secondary to hepatocellular disease or represent a pancolitis 5. Trace pericholecystic fluid likely secondary to hepatocellular disease 6. Nonspecific interstitial and groundglass opacities at the lung bases ACT 112: Negative or not required by law. Electronically signed by: Catalino Cuevas M.D. 05/18/2020 1:16 PM
[2020-05-18] MEDS: SUCRALFATE 1 GM/10 ML UDC PO SCH ×2 (17:23→20:04)
[2020-05-18] MEDS: methylPREDNISolone 32 MG in SYRINGE 0 ML IV SCH (20:04)
[2020-05-19 06:03] LABS: Basophils # (auto) 0.04 K/uL (0-0.2); Basophils % (auto) 0.3 %; Eosinophils # (auto) 0.04 K/uL (0-0.5); Eosinophils % (auto) 0.3 %; Hematocrit (blood only) 39.5 % (42-52); Immature Granulocytes # (auto) 0.16 K/uL (0.00-0.02); Immature Granulocytes % (auto) 1.1 %; Lymphocytes # (auto) 1.07 K/uL (1.2-3.4); Lymphocytes % (auto) 7.6 %; Mean Corpuscular Hemoglobin 37.7 pg (25-34); Mean Corpuscular Hgb Conc 32.9 g/dL (32-36); Mean Corpuscular Volume 114.5 fL (80-100); Mean Platelet Volume 11.1 fL (7.4-10.4); Monocytes # (auto) 0.87 K/uL (0.11-0.59); Monocytes % (auto) 6.2 %; Neutrophils # (auto) 11.81 K/uL (1.4-6.5); Neutrophils % (auto) 84.5 %; Platelet Count 115 K/uL (130-400); RDW Coefficient of Variation 17.3 % (11.5-14.5); RDW Standard Deviation 71.1 fL (36.4-46.3); Red Blood Count 3.45 M/uL (4.7-6.1); White Blood Count 13.99 K/uL (4.8-10.8)
[2020-05-19 06:11] LABS: INR 1.2 (0.9-1.1)
[2020-05-19 06:31] LABS: Macrocytosis Present; Polychromasia 1+; Target Cells 1+
[2020-05-19 06:47] LABS: Albumin Level 1.6 gm/dl (3.4-5.0); BUN Creatinine Ratio 21.5 (10-20); Bilirubin Direct 11.5 mg/dl (0-0.2); Bilirubin,Total 14.5 mg/dl (0.2-1); Calcium 7.2 mg/dl (8.5-10.1); Creatinine Clr Calc Pharmacy 121.9 ml/min; Est GFR (African American) 121.4; Est GFR (Non-African American) 104.8; Potassium 3.3 mmol/L (3.5-5.1); Total Protein 5.4 gm/dl (6.4-8.2)
[2020-05-19] MEDS: PANTOprazole 40 MG in SYRINGE 0 ML IV SCH ×2 (07:45→20:39)
[2020-05-19] MEDS: NYSTATIN OINT 15 GM TUBE EXT SCH ×4 (07:45→20:41)
[2020-05-19] MEDS: FOLIC ACID 1 MG in SYRINGE 9.8 ML IV SCH (07:45)
[2020-05-19] MEDS: methylPREDNISolone 32 MG in SYRINGE 0 ML IV SCH (07:45)
[2020-05-19] MEDS: NICOTINE 21 MG/24 HR TDSY TD SCH (07:46)
[2020-05-19] MEDS: HEPARIN SOD 5,000 UNIT/0.5 ML VIAL SQ SCH ×2 (07:46→20:40)
[2020-05-19] MEDS: SUCRALFATE 1 GM/10 ML UDC PO SCH ×4 (07:48→20:39)
[2020-05-19] MEDS: THIAMINE HCL 200 MG in SODIUM CHLORIDE 0.9% 50 ML IV SCH ×2 (07:48→20:46)
[2020-05-19] MEDS: POTASSIUM CHLORIDE / WTR 10 MEQ/100 ML PLCT IV SCH ×2 (09:51→10:41)
--- NOTE | 2020-05-19 11:11 | Hospitalist Progress Note ---
Date of Service May 19, 2020 Assessment & Plan (1) Abdominal pain: ongoing. repeat CT abd/pelvis yesterday with colitis, but his pain is high epigastric. I am more suspicious about alcoholic gastritis or PUD. added carafate QID yesterday. he remains on PPI bid IV. recent lipase wnl, c diff negative, stool cx negative minimal ascites on CT yesterday - doubt SBP no mention of PVT but will check portal dopplers alternatively the pain could be from liver capsule swelling check EKG to ensure this is not ischemic pain (2) Acute respiratory failure with hypoxia: resolved 2nd pneumonia and volume overload (from acute hepatitis as well as systolic CHF) cxr 05/17 with overall improved infiltrates completed 7-day course rocephin received several days of diuresis - now resolved intermittent tachypnea is from a respiratory alkalosis in the setting of multiple metabolic disturbances including his acute liver injury and possibly from pain?? (3) Acute alcoholic hepatitis: significant acute liver failure 2nd to etoh. LFTs - especially t and d bili - are trending down. INR stable. s/p NAC protocol. was receiving pentoxifylline in spencer of steroids due to high Madrey's discriminant function score in the setting of pneumonia but now unable to take PO meds reliably. holding Trental and using IV steroids in spencer of PO prednisolone. cont solumedrol 32mg IV daily. plan 28-day course of steroids. cont supportive care, serial labs, etc. ammonia levels have been consistently normal including level on 05/17. (4) Systolic CHF: acute/chronic ef 40-45% now euvolemic no further lasix ultimately need to resume coreg albeit at lower dose (5) Acute metabolic encephalopathy: ongoing. multifactorial. metabolic from infection (pneumonia), acute liver injury, etc. possibly toxic from copious IV ativan (while he was in ICU). CT head 05/11 and 05/17 negative or acute process. remains on high-dose thiamine IV for prevention of Wernicke's encephalopathy. VBGs w/o hypercarbia. 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 cannot rule out ongoing alcohol withdrawal. if mental status issues persist consider MRI brain but uncertain he would tolerate at this time. (6) Liver cirrhosis: 2nd to etoh. HepC RNA negative. Appreciate GI consultation and recs Treating acute liver injury as above. (7) Pneumonia: b/l community-acquired vs aspiration completed 7 days of rocephin O2 sats stable in RA with improved cxr 2 days ago (8) Acute hyponatremia: resolved 119 at admission BMP remains stable bmp again in am (9) Tobacco use disorder: nicoderm patch daily (10) Alcohol withdrawal: received IV ativan while in ICU. the ativan was stopped due to excess sedation in setting of copious use. he again did not tolerate IV ativan on 05/17 for apparent withdrawal symptoms. HOLDING additional ativan. although likely still in withdrawal he remains relatively comfortable (11) Ischemic cardiomyopathy: EF 40-45% on echo this admission ultimately needs SARI and BB back no further diuresis for now (12) Depression: needs Rx once mentation improved and able to take meds would involve psych later this stay (13) Alcohol dependence: states she wants rehab for patient post-d/c cont high-dose thiamine, folic acid was drinking 30 beers/day pre-hospitalization (14) Hypokalemia: ongoing replace IV again today bmp am (15) Hypomagnesemia: replaced resolved (16) Dysphagia: repeat eval 05/18 with improved swallow function pureed diet ordered by speech at that time CT head w/o stroke on 2 occasions CPK wnl dysphagia could be from severe encephalopathy leading to poor swallow function perhaps critical illness myopathy contributing?? at some point he may need MRI brain to r/o subacute process if neurological function appears impaired (17) Muscle weakness: severe weakness on exam CPK wnl critical illness myopathy? PT, OT when able (18) DVT prophylaxis: heparin SC spoke with pt's multiple times this weekend will update her today cont PT, OT if able to participate prognosis guarded but perhaps trying to turn corner? nutrition is an issue due to severe hepatic injury poor candidate for enteral feedings due to concern for esophageal varices injury with NG tube insertion Admission and Anticipated Discharge Date Admission Date: May 11, 2020 Subjective patient more awake/alert than yesterday. still confused - he asked me for a cigarette. he did know he was at "[facility]." he knew that [facility] is a hospital. he said "I'm in rough shape." he c/o dyspnea, cough, abdominal pain. states abd pain is similar to past episodes of heart pain. has rectal tube in place - liquid stool. tele overnight with Sinus tach. scant intake at breakfast - sips and bites only. Review of Systems Constitutional: + fatigue and + anorexia Respiratory: + cough and + dyspnea Cardiovascular: no chest pain Gastrointestinal: + abdominal pain, + nausea and + diarrhea/loose stools; no vomiting Physical Exam Constitutional: + ill appearing, + obese, + altered mental status (confused but modestly improved from 05/18) and + frail appearing; no acute distress Eyes: + scleral abnormality (icterus ) and PERRL ENMT: external ear and nose normal, oropharynx normal Respiratory: + tachypneic Auscultation: no crackles and no wheezes Cardiovascular: Rate/Rhythm: regular rhythm and + tachycardic Heart Sounds: normal S1 and normal S2; no murmur Vessels: posterior tibial pulses present and dorsalis pedis pulses present; no JVD Extremities: + edema (<1+ b/l ) Gastrointestinal (Abdomen): Inspection/Auscultation: + abdomen distended and normal bowel sounds Percussion/Palpation: + abdomen tender (epigastric region- no change ); no guarding and no hepatosplenomegaly Skin: + jaundice (To thighs) Neurologic: + confused Motor/Sensory: + tremor Psychiatric: Orientation: alert, oriented to person and oriented to place; + not oriented to time Results & Data Results & Data ([facility]) Vital Signs (Past 12 Hours) Vital Signs Temp Pulse Pulse Resp BP Pulse Ox 05/19/20 07:38 36.8 C 101 H 21 114/84 93 05/19/20 03:30 37.0 C 95 H 20 124/80 92 05/19/20 00:00 90 05/18/20 23:57 36.7 C 93 H 19 117/82 92 Laboratory Results Laboratory Results - last 24 hr 05/18/20 05/19/20 05/19/20 06:47 05:31 05:31 WBC 13.99 H RBC 3.45 L Hgb 13.0 L Hct 39.5 L MCV 114.5 H MCH 37.7 H MCHC 32.9 RDW Std Deviation 71.1 H RDW Coeff of [place] 17.3 H Plt Count 115 L MPV 11.1 H Immature Gran % (Auto) 1.1 Neut % (Auto) 84.5 Lymph % (Auto) 7.6 [place] % (Auto) 6.2 Eos % (Auto) 0.3 Baso % (Auto) 0.3 Neut # (Auto) 11.81 H Lymph # (Auto) 1.07 L [place] # (Auto) 0.87 H Eos # (Auto) 0.04 Baso # (Auto) 0.04 Immature Gran # (Auto) 0.16 H Polychromasia 1+ Macrocytosis Present Target Cells 1+ PT 13.0 H INR 1.2 H Sodium Potassium Chloride Carbon Dioxide Anion Gap BUN Creatinine Est Cr Clr Drug Dosing Est GFR ( Amer) Est GFR (Non-Af Amer) BUN/Creatinine Ratio Glucose Calcium Total Bilirubin Direct Bilirubin 12.2 H AST ALT Alkaline Phosphatase Total Protein Albumin 05/19/20 05:31 WBC RBC Hgb Hct MCV MCH MCHC RDW Std Deviation RDW Coeff of [place] Plt Count MPV Immature Gran % (Auto) Neut % (Auto) Lymph % (Auto) [place]herty % (Auto) Eos % (Auto) Baso % (Auto) Neut # (Auto) Lymph # (Auto) [place] # (Auto) Eos # (Auto) Baso # (Auto) Immature Gran # (Auto) Polychromasia Macrocytosis Target Cells PT INR Sodium 146 H Potassium 3.3 L Chloride 110 H Carbon Dioxide 25 Anion Gap 11.0 BUN 15 Creatinine 0.70 Est Cr Clr Drug Dosing 121.9 Est GFR ( Amer) 121.4 Est GFR (Non-Af Amer) 104.8 BUN/Creatinine Ratio 21.5 H Glucose 80 Calcium 7.2 L Total Bilirubin 14.5 H Direct Bilirubin 11.5 H AST 96 H ALT 71 Alkaline Phosphatase 172 H Total Protein 5.4 L Albumin 1.6 L PG Care Time/CCT Total # of Minutes Spent Total Time Spent with Patient: Total time spent is greater than 50% in coordination of care (as documented) at patient's floor/unit and/or counseling patient: Coding Level of Care Code 33406 Subseq Hosp Care Lvl 3 Diagnoses Abdominal pain R10.13 Abdominal location: epigastric Acute respiratory failure with hypoxia J96.01 Acute alcoholic hepatitis K70.10 Systolic CHF I50.20 Acute metabolic encephalopathy G93.41 Liver cirrhosis K74.60 Pneumonia J18.9 Acute hyponatremia E87.1 Tobacco use disorder F17.200 Alcohol withdrawal F10.239 Ischemic cardiomyopathy I25.5 Depression F32.9 Alcohol dependence F10.229 Complication of substance-induced condition: with unspecified complication Substance use status: with intoxication Hypokalemia E87.6 Hypomagnesemia E83.42 Dysphagia R13.10 Dysphagia type: unspecified Muscle weakness M62.81 DVT prophylaxis Z29.9 (1) Abdominal pain Abdominal location: epigastric Qualified Code(s): R10.13 - Epigastric pain (2) Alcohol dependence Complication of substance-induced condition: with unspecified complication Substance use status: with intoxication Qualified Code(s): F10.229 - Alcohol dependence with intoxication, unspecified (3) Dysphagia Dysphagia type: unspecified Qualified Code(s): R13.10 - Dysphagia, unspecified
--- NOTE | 2020-05-19 15:23 | Ultrasound Report ---
US duplex portal hepatic veins CLINICAL HISTORY: cirrhosis, abd pain, eval PVT COMPARISON STUDY: CT scan dated 05/18/2020 FINDINGS: The study was very difficult from a technical standpoint. There was poor hepatic through-tr ansmission. The patient was unable to cooperate with breath-holding. Hepatic veins appear patent. There was no visible flow within the main portal vein. The right portal vein was not visualized. The left portal vein appeared normal directional flow. IMPRESSION: 1. Very limited study from a technical standpoint 2. The hepatic veins were patent 3. The left portal vein is patent with normal directional flow 4. The right portal vein was not visualized 5. No flow was visualized within the main portal vein, however it is possible this represents a techn ical artifact, as the main portal vein appeared patent on a CT scan performed one day prior ACT 112: Negative or not required by law. Electronically signed by: Catalino Cuevas M.D. 05/19/2020 3:22 PM
[2020-05-20 05:43] LABS: Hematocrit (blood only) 39.7 % (42-52); Hemoglobin 13.5 g/dL (14.0-18.0); Mean Corpuscular Hemoglobin 39.1 pg (25-34); Mean Corpuscular Volume 115.1 fL (80-100); Mean Platelet Volume 10.8 fL (7.4-10.4); Platelet Count 139 K/uL (130-400); RDW Coefficient of Variation 17.5 % (11.5-14.5); RDW Standard Deviation 73.6 fL (36.4-46.3); Red Blood Count 3.45 M/uL (4.7-6.1); White Blood Count 19.12 K/uL (4.8-10.8)
[2020-05-20 06:15] LABS: Albumin Level 1.5 gm/dl (3.4-5.0); Bilirubin,Total 13.8 mg/dl (0.2-1); Calcium 7.8 mg/dl (8.5-10.1); Creatinine Clr Calc Pharmacy 123.7 ml/min; Est GFR (African American) 122.1; Est GFR (Non-African American) 105.4; Potassium 3.3 mmol/L (3.5-5.1); Total Protein 5.5 gm/dl (6.4-8.2)
[2020-05-20 07:15] LABS: Bilirubin Direct 11.2 mg/dl (0-0.2)
[2020-05-20] MEDS: HEPARIN SOD 5,000 UNIT/0.5 ML VIAL SQ SCH ×2 (07:57→20:07)
[2020-05-20] MEDS: NYSTATIN OINT 15 GM TUBE EXT SCH ×4 (08:03→20:08)
[2020-05-20] MEDS: SUCRALFATE 1 GM/10 ML UDC PO SCH ×4 (08:03→20:07)
[2020-05-20] MEDS: FOLIC ACID 1 MG in SYRINGE 9.8 ML IV SCH (08:04)
[2020-05-20] MEDS: NICOTINE 21 MG/24 HR TDSY TD SCH (08:04)
[2020-05-20] MEDS: PANTOprazole 40 MG in SYRINGE 0 ML IV SCH ×2 (08:05→20:07)
[2020-05-20] MEDS: methylPREDNISolone 32 MG in SYRINGE 0 ML IV SCH (08:05)
[2020-05-20] MEDS ORDERED: D5W AND 1/4NSS + 20MEQ KCL 20 MEQ/1,000 ML BAG IV SCH (08:15)
[2020-05-20] MEDS: THIAMINE HCL 200 MG in SODIUM CHLORIDE 0.9% 50 ML IV SCH ×2 (08:23→20:09)
--- NOTE | 2020-05-20 10:22 | Hospitalist Progress Note ---
Date of Service May 20, 2020 Assessment & Plan (1) Abdominal pain: resolved with IV PPI and carafate QID. CT abd/pelvis with ?colitis but no other findings. suspicious he has gastritis or PUD. recent lipase wnl, c diff negative, stool cx negative minimal ascites on CT - doubt SBP (and he had been on 7 day run of rocephin, too) portal vein dopplers neg for PVT (2) Acute respiratory failure with hypoxia: resolved 2nd pneumonia and volume overload (from acute hepatitis as well as systolic CHF) cxr 05/17 with overall improved infiltrates completed 7-day course rocephin received several days of diuresis - now resolved continues with intermittent tachypnea when he sleeps - uncertain what is causing such consider MRI brain to r/o brain injury (3) Acute alcoholic hepatitis: IMPROVING. significant acute liver failure 2nd to etoh. LFTs - especially t and d bili - are trending down. INR stable. s/p NAC protocol. was receiving pentoxifylline in spencer of steroids due to high Madrey's discr iminant function score in the setting of pneumonia but now unable to take PO meds reliably. holding Trental and using IV steroids in spencer of PO prednisolone. cont solumedrol 32mg IV daily. plan 28-day course of steroids. might be able to change steroids to PO steroids tomorrow, however. cont supportive care, serial labs, etc. ammonia levels have been consistently normal including level on 05/17. (4) Systolic CHF: acute/chronic ef 40-45% now euvolemic or even mildly volume contracted no further lasix ultimately need to resume coreg albeit at lower dose (5) Acute metabolic encephalopathy: ongoing. multifactorial. but slowly improving. metabolic from infection (pneumonia), acute liver injury, etc. possibly toxic from copious IV ativan (while he was in ICU). CT head 05/11 and 05/17 negative or acute process. remains on high-dose thiamine IV for prevention of Wernicke's encephalopathy. VBGs w/o hypercarbia. 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 cannot rule out ongoing alcohol withdrawal. consider MRI brain. (6) Liver cirrhosis: 2nd to etoh. HepC RNA negative. Appreciate GI consultation and recs Treating acute liver injury as above. (7) Pneumonia: b/l community-acquired vs aspiration completed 7 days of rocephin O2 sats stable in RA (8) Acute hyponatremia: resolved now with mild hypernatremia Na was 119 at admission bmp again in am (9) Tobacco use disorder: nicoderm patch daily (10) Alcohol withdrawal: received IV ativan while in ICU. the ativan was stopped due to excess sedation in setting of copious use. he again did not tolerate IV ativan on 05/17 for apparent withdrawal symptoms. HOLDING additional ativan. although likely still in withdrawal he remains relatively comfortable (11) Ischemic cardiomyopathy: EF 40-45% on echo this admission ultimately needs SARI and BB back no further diuresis for now (12) Depression: needs Rx once mentation improved and able to take meds would involve psych later this stay (13) Alcohol dependence: states she wants rehab for patient post-d/c cont high-dose thiamine, folic acid was drinking 30 beers/day pre-hospitalization (14) Hypokalemia: add KCL to IV fluids (15) Hypomagnesemia: replaced resolved (16) Dysphagia: repeat eval 05/18 with improved swallow function pureed diet ordered by speech at that time CT head w/o stroke on 2 occasions CPK wnl dysphagia could be from severe encephalopathy leading to poor swallow function perhaps critical illness myopathy contributing?? at some point he may need MRI brain to r/o subacute process (17) Muscle weakness: severe weakness on exam CPK wnl critical illness myopathy? PT, OT when able (18) Hypernatremia: 1 L of 1/2 NS then saline lock. repeat BMP am. (19) DVT prophylaxis: heparin SC spoke with pt's today by phone & gave update cont PT, OT if able to participate slowly starting to improve Admission and Anticipated Discharge Date Admission Date: May 11, 2020 Subjective patient very awake during the visit. much more so than any time in the last week. he is confused. thinks he is on campus at [facility]. does not know why he is here. he denies abd pain today. ate all of his breakfast this am. telemetry stable overnight. patient denies pain in any location. Review of Systems Constitutional: + fatigue; no anorexia Respiratory: + cough; no dyspnea and no sputum production Cardiovascular: no chest pain Gastrointestinal: no abdominal pain, no nausea and no vomiting Physical Exam Constitutional: + ill appearing, + obese, + altered mental status (confused but MUCH MORE AWAKE TODAY) and + frail appearing; no acute distress Eyes: + scleral abnormality (icterus ) and PERRL ENMT: external ear and nose normal, oropharynx normal Respiratory: + tachypneic (Occasional - usually when he falls asleep) Auscultation: no crackles and no wheezes Cardiovascular: Rate/Rhythm: regular rate and regular rhythm Heart Sounds: normal S1 and normal S2; no murmur Vessels: posterior tibial pulses present and dorsalis pedis pulses present; no JVD Extremities: + edema (<1+ b/l ) Gastrointestinal (Abdomen): Inspection/Auscultation: normal bowel sounds Percussion/Palpation: abdomen nontender, no guarding and no hepatosplenomegaly Skin: + jaundice (To waistline) Neurologic: + confused Motor/Sensory: + tremor Psychiatric: Orientation: alert and oriented to person; + not oriented to place and + not oriented to time Results & Data Results & Data ([facility]) Vital Signs (Past 12 Hours) Vital Signs Temp Pulse Pulse Resp BP Pulse Ox 05/20/20 07:44 36.6 C 72 18 100/81 97 05/20/20 02:58 36.6 C 105 H 18 148/99 H 91 05/19/20 23:30 36.6 C 104 H 20 132/95 95 05/19/20 23:04 110 H Laboratory Results Laboratory Results - last 24 hr 05/20/20 05/21/20 05:24 05:26 Sodium 147 H Pending Potassium 3.3 L Pending Chloride 114 H Pending Carbon Dioxide 25 Pending Anion Gap 8.0 Pending BUN 17 Pending Creatinine 0.69 Pending Est Cr Clr Drug Dosing 123.7 Pending Est GFR ( Amer) 122.1 Pending Est GFR (Non-Af Amer) 105.4 Pending BUN/Creatinine Ratio 25.0 H Pending Glucose 105 H Pending Calcium 7.8 L Pending Magnesium 2.0 Total Bilirubin 13.8 H Pending Direct Bilirubin 11.2 H Pending AST 90 H Pending ALT 70 Pending Alkaline Phosphatase 180 H Pending Total Protein 5.5 L Pending Albumin 1.5 L Pending PG Care Time/CCT Total # of Minutes Spent Total Time Spent with Patient: Total time spent is greater than 50% in coordination of care (as documented) at patient's floor/unit and/or counseling patient: Coding Level of Care Code 20484 Subseq Hosp Care Lvl 3 Diagnoses Abdominal pain R10.13 Abdominal location: epigastric Acute respiratory failure with hypoxia J96.01 Acute alcoholic hepatitis K70.10 Systolic CHF I50.20 Acute metabolic encephalopathy G93.41 Liver cirrhosis K74.60 Pneumonia J18.9 Acute hyponatremia E87.1 Tobacco use disorder F17.200 Alcohol withdrawal F10.239 Ischemic cardiomyopathy I25.5 Depression F32.9 Alcohol dependence F10.229 Complication of substance-induced condition: with unspecified complication Substance use status: with intoxication Hypokalemia E87.6 Hypomagnesemia E83.42 Dysphagia R13.10 Dysphagia type: unspecified Muscle weakness M62.81 Hypernatremia E87.0 DVT prophylaxis Z29.9 (1) Alcohol dependence Complication of substance-induced condition: with unspecified complication Substance use status: with intoxication Qualified Code(s): F10.229 - Alcohol dependence with intoxication, unspecified (2) Dysphagia Dysphagia type: unspecified Qualified Code(s): R13.10 - Dysphagia, unspecified (3) Abdominal pain Abdominal location: epigastric Qualified Code(s): R10.13 - Epigastric pain
--- NOTE | 2020-05-20 21:44 | Electrocardiogram Report ---
Test Reason : Blood Pressure : / mmHG Vent. Rate : 100 BPM Atrial Rate : 100 BPM P-R Int : 154 ms QRS Dur : 080 ms QT Int : 364 ms P-R-T Axes : 029 -48 008 degrees QTc Int : 469 ms Normal sinus rhythm Left axis deviation Inferior infarct , age undetermined Anterior infarct Abnormal ECG When compared with ECG of 13-MAY-2020 20:22, Premature atrial complexes are no longer Present Incomplete right bundle branch block is no longer Present Anteroseptal infarct is now Present Confirmed by Brady Zapata ([id number]) on 05/20/2020 9:44:30 PM Referred By: REFERRED SELF Confirmed By:Brady Zapata
[2020-05-21] MEDS ORDERED: LORazepam 1 MG/2 ML VIAL IV STA ×2 (04:21→21:51)
[2020-05-21 06:40] LABS: Albumin Level 1.5 gm/dl (3.4-5.0); Bilirubin Direct 8.8 mg/dl (0-0.2); Calcium 7.7 mg/dl (8.5-10.1); Creatinine Clr Calc Pharmacy 107.9 ml/min; Est GFR (African American) 115.5; Est GFR (Non-African American) 99.7; Potassium 3.3 mmol/L (3.5-5.1)
[2020-05-21 07:02] LABS: Bilirubin,Total 10.6 mg/dl (0.2-1); Total Protein 5.4 gm/dl (6.4-8.2)
[2020-05-21] MEDS: NICOTINE 21 MG/24 HR TDSY TD SCH (07:22)
[2020-05-21] MEDS: FOLIC ACID 1 MG in SYRINGE 9.8 ML IV SCH (07:26)
[2020-05-21] MEDS: PANTOprazole 40 MG in SYRINGE 0 ML IV SCH ×2 (07:26→21:16)
[2020-05-21] MEDS: methylPREDNISolone 32 MG in SYRINGE 0 ML IV SCH (07:27)
[2020-05-21] MEDS: SUCRALFATE 1 GM/10 ML UDC PO SCH ×5 (07:31→21:29)
[2020-05-21] MEDS: HEPARIN SOD 5,000 UNIT/0.5 ML VIAL SQ SCH ×4 (08:09→21:18)
[2020-05-21] MEDS: NYSTATIN OINT 15 GM TUBE EXT SCH ×4 (11:35→21:16)
[2020-05-21] MEDS: THIAMINE HCL 200 MG in SODIUM CHLORIDE 0.9% 50 ML IV SCH ×2 (11:35→21:20)
[2020-05-21] MEDS: POTASSIUM CHLORIDE / WTR 10 MEQ/100 ML PLCT IV SCH ×2 (11:37→12:48)
--- NOTE | 2020-05-21 15:57 | Hospitalist Progress Note ---
Date of Service May 21, 2020 Assessment & Plan (1) Acute alcoholic hepatitis: IMPROVING day to day. t.bili and d.bili continue to drop daily. transaminases and alk phos slowly decreasing. his severe acute liver failure was 2nd to heavy etoh use. INR has remained stable. s/p NAC protocol. was receiving pentoxifylline in spencer of steroids due to high Madrey's discriminant function score but he was not taking PO meds reliably. thus, pentoxifylline was held and he was placed on solumedrol 32mg IV daily. will need 28 days of IV/PO steroids. cont supportive care, serial labs, etc. ammonia levels have been consistently normal including level on 05/17. (2) Abdominal pain: improved. with IV PPI and carafate QID. CT abd/pelvis with ?colitis but no other findings. suspicious he has gastritis or PUD. recent lipase wnl, c diff negative, stool cx negative minimal ascites on CT - doubt SBP (and he had been on 7 day run of rocephin, too) portal vein dopplers neg for PVT if pain persists then reconsult GI for consideration of EGD. of note - esophageal varices were seen on CT abdomen. (3) Acute respiratory failure with hypoxia: resolved 2nd pneumonia and volume overload (from acute hepatitis as well as systolic CHF) cxr 05/17 with overall improved infiltrates completed 7-day course rocephin received several days of diuresis - now resolved (4) Systolic CHF: acute/chronic ef 40-45% now euvolemic or even mildly volume contracted no further lasix ultimately need to resume coreg albeit at lower dose (5) Acute metabolic encephalopathy: ongoing. this has been severe the entire stay. suspect multifactorial in origin. metabolic from infection (pneumonia), acute liver injury, etc. possibly toxic from copious IV ativan (while he was in ICU). CT head 05/11 and 05/17 negative for acute process. remains on high-dose thiamine IV for prevention of Wernicke's encephalopathy. VBGs w/o hypercarbia. TSH, B12 wnl. ammonia wnl. He is now about 11-13 days out from his last etoh beverage. Theoretically he could still be withdrawing from etoh but this should be nearly done. He could easily have Wernicke's even despite the high-dose thiamine. If mental status continues to remain poor over the next 1-2 days would recommend MRI brain with contrast. (6) Liver cirrhosis: 2nd to etoh. HepC RNA negative. Appreciate GI consultation and recs Treating acute liver injury as above. (7) Pneumonia: b/l community-acquired vs aspiration completed 7 days of rocephin O2 sats stable in RA (8) Acute hyponatremia: resolved now with mild hypernatremia Na was 119 at admission bmp again in am (9) Tobacco use disorder: nicoderm patch daily (10) Alcohol withdrawal: received IV ativan while in ICU. the ativan was stopped due to excess sedation in setting of copious use. he again did not tolerate IV ativan on 05/17 for apparent withdrawal symptoms. HOLDING additional ativan. suspect he may still be withdrawing from etoh although this should be nearly finished - see above. (11) Ischemic cardiomyopathy: EF 40-45% on echo this admission ultimately needs SARI and BB back no further diuresis (12) Depression: needs Rx once mentation improved and able to take meds would involve psych later this stay (13) Alcohol dependence: states she wants rehab for patient post-d/c cont high-dose thiamine, folic acid was drinking 30 beers/day pre-hospitalization (14) Hypokalemia: replace repeat BMP am (15) Hypomagnesemia: replaced resolved (16) Dysphagia: repeat eval 05/18 with improved swallow function pureed diet ordered by speech at that time CT head w/o stroke on 2 occasions CPK wnl dysphagia could be from severe encephalopathy leading to poor swallow function perhaps critical illness myopathy contributing as well? (17) Muscle weakness: severe weakness on exam it is symmetric in all limbs CPK wnl critical illness myopathy? PT, OT when able will need rehab post-d/c (18) Hypernatremia: gave additional hypotonic fluid today repeat BMP am (19) DVT prophylaxis: heparin SC multiple updates given to by phone over the last week cont PT, OT if able to participate slowly starting to improve Admission and Anticipated Discharge Date Admission Date: May 11, 2020 Subjective patient remains very confused but he is quite awake today, answering questions, following commands, and eating. he thought Lucio Ibarra was the president, thought he was in the chemistry building on the [facility], but interestingly knew it was 2019. he could not tell me the date or month. he could not tell me why he was here. c/o minimal upper abd pain. no dyspnea. no vomiting. rectal tube still in place. jones still in place. tele overnight wnl - no dysrhythmia. Review of Systems Constitutional: + fatigue; no fever and no chills Respiratory: + cough; no dyspnea and no sputum production Cardiovascular: no chest pain Gastrointestinal: no nausea Physical Exam Constitutional: + ill appearing, + obese, + altered mental status (confused but awake for the entire visit) and + frail appearing; no acute distress Eyes: + scleral abnormality (icterus ) and PERRL ENMT: external ear and nose normal, oropharynx normal Respiratory: no respiratory distress Auscultation: lungs clear to auscultation bilaterally; no crackles and no wheezes Cardiovascular: Rate/Rhythm: regular rate and regular rhythm Heart Sounds: normal S1 and normal S2; no murmur Vessels: posterior tibial pulses present and dorsalis pedis pulses present; no JVD Extremities: + edema (<1+ b/l ) Gastrointestinal (Abdomen): Inspection/Auscultation: + abdomen distended and normal bowel sounds Percussion/Palpation: + abdomen tender (High epigastric region); no guarding and no hepatosplenomegaly Skin: + jaundice (To just below umbilicus) Neurologic: + confused Motor/Sensory: + tremor Psychiatric: Orientation: alert and oriented to person; + not oriented to place and + not oriented to time Results & Data Results & Data ([facility]) Vital Signs (Past 12 Hours) Vital Signs Temp Pulse Pulse Resp BP Pulse Ox 05/21/20 15:10 37.0 C 97 H 20 141/76 H 94 05/21/20 11:28 37.3 C 115 H 19 121/82 95 05/21/20 08:00 107 H 05/21/20 07:22 37 C 111 H 26 H 101/72 89 L Laboratory Results Laboratory Results - last 24 hr 05/21/20 05:26 Sodium 146 H Potassium 3.3 L Chloride 115 H Carbon Dioxide 22 Anion Gap 9.0 BUN 17 Creatinine 0.79 Est Cr Clr Drug Dosing 107.9 Est GFR ( Amer) 115.5 Est GFR (Non-Af Amer) 99.7 BUN/Creatinine Ratio 22.0 H Glucose 115 H Calcium 7.7 L Total Bilirubin 10.6 H Direct Bilirubin 8.8 H AST 82 H ALT 67 Alkaline Phosphatase 187 H Total Protein 5.4 L Albumin 1.5 L PG Care Time/CCT Total # of Minutes Spent Total Time Spent with Patient: Total time spent is greater than 50% in coordination of care (as documented) at patient's floor/unit and/or counseling patient: Coding Level of Care Code 70462 Subseq Hosp Care Lvl 3 Diagnoses Acute alcoholic hepatitis K70.10 Abdominal pain R10.13 Abdominal location: epigastric Acute respiratory failure with hypoxia J96.01 Systolic CHF I50.20 Acute metabolic encephalopathy G93.41 Liver cirrhosis K74.60 Pneumonia J18.9 Acute hyponatremia E87.1 Tobacco use disorder F17.200 Alcohol withdrawal F10.239 Ischemic cardiomyopathy I25.5 Depression F32.9 Alcohol dependence F10.229 Complication of substance-induced condition: with unspecified complication Substance use status: with intoxication Hypokalemia E87.6 Hypomagnesemia E83.42 Dysphagia R13.10 Dysphagia type: unspecified Muscle weakness M62.81 Hypernatremia E87.0 DVT prophylaxis Z29.9 (1) Alcohol dependence Complication of substance-induced condition: with unspecified complication Substance use status: with intoxication Qualified Code(s): F10.229 - Alcohol dependence with intoxication, unspecified (2) Dysphagia Dysphagia type: unspecified Qualified Code(s): R13.10 - Dysphagia, unspecified (3) Abdominal pain Abdominal location: epigastric Qualified Code(s): R10.13 - Epigastric pain
[2020-05-21] MEDS ORDERED: LORazepam 2 MG/4 ML VIAL ONE (21:45)
[2020-05-21] MEDS ORDERED: METOPROLOL TARTRATE 1 MG/ML VIAL IV STA (22:47)
[2020-05-22] MEDS ORDERED: LORazepam 1 MG/2 ML VIAL IV STA ×2 (04:17→21:49)
[2020-05-22] MEDS ORDERED: LORazepam 2 MG/4 ML VIAL ONE (04:19)
[2020-05-22] MEDS ORDERED: LORazepam 1 MG/2 ML VIAL IV PRN ×2 (04:20→21:50)
[2020-05-22] MEDS: HEPARIN SOD 5,000 UNIT/0.5 ML VIAL SQ SCH ×3 (05:02→21:39)
[2020-05-22 06:19] LABS: Hematocrit (blood only) 39.5 % (42-52); Hemoglobin 13.1 g/dL (14.0-18.0); Mean Corpuscular Hemoglobin 38.3 pg (25-34); Mean Corpuscular Hgb Conc 33.2 g/dL (32-36); Mean Corpuscular Volume 115.5 fL (80-100); Mean Platelet Volume 11.4 fL (7.4-10.4); Platelet Count 134 K/uL (130-400); RDW Coefficient of Variation 16.7 % (11.5-14.5); Red Blood Count 3.42 M/uL (4.7-6.1); White Blood Count 19.54 K/uL (4.8-10.8)
[2020-05-22 07:01] LABS: Est GFR (African American) 116.1; Est GFR (Non-African American) 100.2; Potassium 3.5 mmol/L (3.5-5.1)
[2020-05-22 07:02] LABS: Albumin Level 1.4 gm/dl (3.4-5.0); BUN Creatinine Ratio 24.7 (10-20); Calcium 8.1 mg/dl (8.5-10.1); Creatinine Clr Calc Pharmacy 109.8 ml/min
[2020-05-22 07:03] LABS: Albumin Globulin Ratio 0.4 (0.9-2); Bilirubin,Total 10.5 mg/dl (0.2-1); Globulin 3.8 gm/dl (2.5-4.0); Total Protein 5.2 gm/dl (6.4-8.2)
[2020-05-22] MEDS: SUCRALFATE 1 GM/10 ML UDC PO SCH ×4 (10:14→20:42)
[2020-05-22] MEDS: FOLIC ACID 1 MG in SYRINGE 9.8 ML IV SCH (10:14)
[2020-05-22] MEDS: NYSTATIN OINT 15 GM TUBE EXT SCH ×4 (10:15→20:42)
[2020-05-22] MEDS: NICOTINE 21 MG/24 HR TDSY TD SCH (10:16)
[2020-05-22] MEDS: PANTOprazole 40 MG in SYRINGE 0 ML IV SCH ×2 (10:16→20:42)
[2020-05-22] MEDS: methylPREDNISolone 32 MG in SYRINGE 0 ML IV SCH (10:17)
[2020-05-22] MEDS: THIAMINE HCL 200 MG in SODIUM CHLORIDE 0.9% 50 ML IV SCH ×2 (10:21→20:42)
--- NOTE | 2020-05-22 11:23 | Fluoroscopy Report ---
FL video swallow HISTORY: thin liquid dysphagia; r/o aspiration TECHNIQUE: Video fluoroscopic evaluation of swallowing was performed in the AP and lateral projection s by the speech pathology staff. The patient is fed nectar-thick and thin liquid barium, a barium coa roxie wafer, and barium pudding. FLUOROSCOPY TIME: 2.6 minutes. A cine loop submitted. COMPARISON STUDY: None. FINDINGS: There is normal hyoid excursion and epiglottic deflection. No significant penetration or as piration identified. Swallowing function is within normal limits. IMPRESSION: 1. No aspiration identified. 2. Please see the speech pathologist report for detailed findings and recommendations. ACT 112: Negative or not required by law. Electronically signed by: Aguila Alamo M.D. 05/22/2020 11:21 AM
--- NOTE | 2020-05-22 14:13 | Hospitalist Progress Note ---
Date of Service May 22, 2020 Assessment & Plan (1) Acute alcoholic hepatitis: very slow to improve t.bili down minimally at 10.5, other LFT close to normal his severe acute liver failure was 2nd to heavy etoh use. INR has remained stable. s/p NAC protocol. was receiving pentoxifylline in [place] of steroids due to high Madrey's discriminant function score but he was not taking PO meds reliably. thus, pentoxifylline was held and he was placed on solumedrol 32mg IV daily. will need 28 days of IV/PO steroids will switch to Prednisilone once he is taking PO reliably cont supportive care, serial labs, etc. ammonia levels have been consistently normal including level on 05/17. (2) Abdominal pain: improved. with IV PPI and carafate QID. CT abd/pelvis with ?colitis but no other findings. no complaints of pain today, appears comfortable suspicious he has gastritis or PUD. recent lipase wnl, c diff negative, stool cx negative minimal ascites on CT - doubt SBP (and he had been on 7 day run of rocephin, too) portal vein dopplers neg for PVT if pain persists then reconsult GI for consideration of EGD. of note - esophageal varices were seen on CT abdomen. (3) Acute respiratory failure with hypoxia: resolved 2nd pneumonia and volume overload (from acute hepatitis as well as systolic CHF) cxr 05/17 with overall improved infiltrates completed 7-day course rocephin received several days of diuresis - now resolved (4) Systolic CHF: acute/chronic ef 40-45% now euvolemic or even mildly volume contracted no further lasix resume Coreg tomorrow if taking PO reliably (5) Acute metabolic encephalopathy: ongoing. this has been severe the entire stay. suspect multifactorial in origin. metabolic from infection (pneumonia), acute liver injury, etc. possibly toxic from copious IV ativan (while he was in ICU). CT head 05/11 and 05/17 negative for acute process. remains on high-dose thiamine IV for prevention of Wernicke's encephalopathy. VBGs w/o hypercarbia. TSH, B12 wnl. ammonia wnl. He is now about 13 days out from his last etoh beverage. Theoretically he could still be withdrawing from etoh but this should be nearly done. He could easily have Wernicke's even despite the high-dose thiamine. If mental status continues to remain poor tomorrow will get MRI brain with contrast. (6) Liver cirrhosis: 2nd to etoh. HepC RNA negative. Appreciate GI consultation and recs Treating acute liver injury as above. (7) Pneumonia: b/l community-acquired vs aspiration completed 7 days of rocephin O2 sats stable in RA (8) Acute hyponatremia: resolved now with mild hypernatremia, 146 today Na was 119 at admission bmp again in am (9) Tobacco use disorder: nicoderm patch daily (10) Alcohol withdrawal: received IV ativan while in ICU. the ativan was stopped due to excess sedation in setting of copious use. he again did not tolerate IV ativan on 05/17 for apparent withdrawal symptoms. HOLDING additional ativan. should be resolved (11) Ischemic cardiomyopathy: EF 40-45% on echo this admission ultimately needs SARI and BB back no further diuresis (12) Depression: needs Rx once mentation improved and able to take meds would involve psych later this stay (13) Alcohol dependence: states she wants rehab for patient post-d/c cont high-dose thiamine, folic acid was drinking 30 beers/day pre-hospitalization (14) Hypokalemia: 3.5 today (15) Hypomagnesemia: replaced resolved (16) Dysphagia: speech saw again today, recommend pureed diet has delayed retropulsion of food to back of throat so no foods that need to be chewed CT head w/o stroke on 2 occasions CPK wnl dysphagia could be from severe encephalopathy leading to poor swallow function perhaps critical illness myopathy contributing as well? (17) Muscle weakness: severe weakness on exam it is symmetric in all limbs CPK wnl critical illness myopathy? PT, OT when able will need rehab post-d/c (18) Hypernatremia: gave additional hypotonic fluid today repeat BMP am (19) DVT prophylaxis: heparin SC multiple updates given to by phone over the last week cont PT, OT if able to participate slowly starting to improve, prognosis is guarded Admission and Anticipated Discharge Date Admission Date: May 11, 2020 Subjective patient laying in bed, confused, completely disoriented he denies any pain, any difficulty breathing no new issues over night per RN, he is just restless, trying to make sure he stays in bed reviewed the chart as he is new to me reviewed labs today, WBC is 19k, Hb 13, plts 134 Cr stable, bilirubin 10.5, AST 80, ALT 62, Alk phos 166 albumin very low at 1.4 Review of Systems Review of Systems: Unobtainable due to cognitive status Physical Exam Constitutional: well developed, + ill appearing, + disheveled and + lethargic; no acute distress Eyes: PERRL, conjunctivae normal, anicteric sclerae ENMT: external ear and nose normal, oropharynx normal Neck: trachea midline, no thyromegaly Respiratory: normal respiratory effort, lungs clear to auscultation Cardiovascular: RRR, no murmur, no edema Gastrointestinal (Abdomen): normal bowel sounds, soft, nontender, no hepatosplenomegaly Musculoskeletal: no cyanosis or clubbing, extremities motor strength 5/5 Skin: normal turgor and + jaundice; no rashes and no wound Neurologic: normal touch/pain/proprioception, CN's II-XI intact bilaterally, awake and + confused; no focal motor deficits Speech / Cognition: + abnormal speech Psychiatric: Orientation: alert; + not oriented x 3 Lymphatic: no cervical or axillary lymphadenopathy Results & Data Results & Data ([facility]) Vital Signs (Past 12 Hours) Vital Signs Temp Pulse Resp BP Pulse Ox 05/22/20 11:36 37.0 C 109 H 16 102/57 L 95 05/22/20 09:21 37.0 C 114 H 19 125/93 94 05/22/20 04:03 36.7 C 106 H 19 113/74 93 Laboratory Results Laboratory Results - last 24 hr 05/22/20 05/22/20 05:37 05:37 WBC 19.54 H RBC 3.42 L Hgb 13.1 L Hct 39.5 L MCV 115.5 H MCH 38.3 H MCHC 33.2 RDW Std Deviation 70.0 H RDW Coeff of [place] 16.7 H Plt Count 134 MPV 11.4 H Sodium 146 H Potassium 3.5 Chloride 115 H Carbon Dioxide 24 Anion Gap 7.0 BUN 19 H Creatinine 0.78 Est Cr Clr Drug Dosing 109.8 Est GFR ( Amer) 116.1 Est GFR (Non-Af Amer) 100.2 BUN/Creatinine Ratio 24.7 H Glucose 75 Calcium 8.1 L Total Bilirubin 10.5 H AST 80 H ALT 62 Alkaline Phosphatase 166 H Total Protein 5.2 L Albumin 1.4 L Globulin 3.8 Albumin/Globulin Ratio 0.4 L Medications Administered Current Inpatient Medications Albuterol (Albut/Ipratrop 3mg/0.5mg Neb 3 Ml Vial) 3 ml NEB Q4R PRN PRN Reason: wheeze Stop: 06/13/20 10:59 Benzocaine (Benzocaine 20% Aer Spr 82.5 Gm Can) 1 appln EXT UD PRN PRN Reason: Pain Stop: 06/14/20 11:17 Last Admin: 05/15/20 16:00 Dose: 1 appln Documented by: Calamine/Phenol (Menthol-Zinc Oxide 360 Appln/120 Gm Tube) 1 appln EXT UD WESLY Stop: 06/14/20 19:59 Last Admin: 05/15/20 20:52 Dose: 1 appln Documented by: Dextrose (Dextrose 50% 50 Ml Syringe) 25 - 50 ml IV UD PRN; Protocol PRN Reason: Hypoglycemia Protocol Stop: 06/10/20 21:08 Glucagon (Glucagon For Inj 1 Mg Vial) 1 mg SQ UD PRN; Protocol PRN Reason: Hypoglycemia Protocol Stop: 06/10/20 21:08 Glucose (Glucose 10 Tabs/Tube) 4 - 8 tabs PO UD PRN; Protocol PRN Reason: Hypoglycemia Protocol Stop: 06/10/20 21:08 Glucose (Glucose 40% Gel 15 Gm Tube) 15 - 30 gm PO UD PRN; Protocol PRN Reason: Hypoglycemia Protocol Stop: 06/10/20 21:08 Heparin Sodium (Porcine) (Heparin Sod 5,000 Unit/0.5 Ml Vial) 5,000 units SQ Q8 WESLY Stop: 06/20/20 08:59 Last Admin: 05/22/20 05:02 Dose: 5,000 units Documented by: Folic Acid 1 mg/ Syringe 10 mls @ 5 mls/min IV QAM WESLY Stop: 06/11/20 10:59 Last Admin: 05/22/20 10:14 Dose: 5 mls/min Documented by: Pantoprazole Sodium 40 mg/ (Syringe) 10 mls @ 5 mls/min IV BID WESLY Stop: 06/15/20 20:59 Last Admin: 05/22/20 10:16 Dose: 5 mls/min Documented by: Thiamine HCl 200 mg/ Sodium (Chloride) 52 mls @ 208 mls/hr IV BID WSELY Stop: 06/16/20 12:29 Last Infusion: 05/22/20 10:36 Dose: Infused Documented by: Lorazepam (Ativan) 1 mg in 2 mls @ 2 mls/min IV UD PRN; Protocol PRN Reason: EtOH Withdrawl AWSS Score 6,7 Stop: 06/16/20 16:49 Lorazepam (Ativan) 2 mg in 4 mls @ 4 mls/min IV UD PRN; Protocol PRN Reason: EtOH Withdrawl AWSS Score 8,9 Stop: 06/16/20 16:49 Lorazepam (Ativan) 3 mg in 6 mls @ 4 mls/min IV ONCE PRN; Protocol PRN Reason: EtOH Withdrawl AWSS Score >=10 Stop: 06/16/20 16:49 Last Admin: 05/17/20 18:23 Dose: 4 mls/min Documented by: Methylprednisolone 32 mg/ (Syringe) 0.512 mls @ 1.5 mls/min IV DAILY [facility]; Protocol Stop: 06/17/20 19:29 Last Admin: 05/22/20 10:17 Dose: 1.5 mls/min Documented by: Miscellaneous (Carbohydrates For Hypoglycemia ) 15 - 30 gm PO UD PRN PRN Reason: Hypoglycemia Protocol Stop: 06/10/20 21:08 Miscellaneous (Remove Nicoderm Patch) 1 ea N/A DAILY@0859 [facility] Stop: 06/11/20 13:44 Last Admin: 05/22/20 10:13 Dose: 1 ea Documented by: Nicotine (Nicotine 21 Mg/24 Hr Tdsy) 21 mg TD QAM [facility] Stop: 06/11/20 13:44 Last Admin: 05/22/20 10:16 Dose: 21 mg Documented by: Nystatin (Nystatin Oint 15 Gm Tube) 1 appln EXT QID [facility] Stop: 06/11/20 16:59 Last Admin: 05/22/20 10:15 Dose: 1 appln Documented by: Pentoxifylline (Pentoxifylline 400mg Ext Rel Tab) 400 mg PO TID [facility] Stop: 06/12/20 20:59 Last Admin: 05/18/20 12:42 Dose: Not Given Documented by: Sucralfate (Sucralfate 1 Gm/10 Ml Udc) 1 gm PO QID [facility] Stop: 06/17/20 16:59 Last Admin: 05/22/20 12:57 Dose: 1 gm Documented by: PG Care Time/CCT Total # of Minutes Spent Total Time Spent with Patient: Total time spent is greater than 50% in coordination of care (as documented) at patient's floor/unit and/or counseling p atient: Coding Level of Care Code 52374 Subseq Hosp Care Lvl 3 Diagnoses Acute alcoholic hepatitis K70.10 Abdominal pain R10.13 Abdominal location: epigastric Acute respiratory failure with hypoxia J96.01 Systolic CHF I50.20 Acute metabolic encephalopathy G93.41 Liver cirrhosis K74.60 Pneumonia J18.9 Acute hyponatremia E87.1 Tobacco use disorder F17.200 Alcohol withdrawal F10.239 Ischemic cardiomyopathy I25.5 Depression F32.9 Alcohol dependence F10.229 Complication of substance-induced condition: with unspecified complication Substance use status: with intoxication Hypokalemia E87.6 Hypomagnesemia E83.42 Dysphagia R13.10 Dysphagia type: unspecified Muscle weakness M62.81 Hypernatremia E87.0 DVT prophylaxis Z29.9 (1) Abdominal pain Abdominal location: epigastric Qualified Code(s): R10.13 - Epigastric pain (2) Alcohol dependence Complication of substance-induced condition: with unspecified complication Substance use status: with intoxication Qualified Code(s): F10.229 - Alcohol dependence with intoxication, unspecified (3) Dysphagia Dysphagia type: unspecified Qualified Code(s): R13.10 - Dysphagia, unspecified
--- NOTE | 2020-05-22 22:00 | Communication Note ---
Date of Service: May 22, 2020 Unfortunately, 3rd consecutive night with agitation. AWSS is ordered to be performed, but Ativan for treatment for score is being held. AWSS score being reported. I'm going to hold further AWSS overnight as this is not adding in treatment. He has been needing Ativan 1mg for safety as he continues to try to get out of bed, is an extreme fall risk given poor baseline health and deconditioning from prolonged stay. There was not direction on preferred medication/treatment for agitation at night. I am concerned that his high AWSS reported scores are from Benzo withdrawal or at the very list are contributing. He required copious amounts of Ativan to treat alcohol withdrawal. Now, suspect ativan/benzo withdrawal as appearance is similar to EToh withdrawal. Benzo act on a different andrew receptor than alcohol but with still same receptor response. His andrew needs to be suppressed. Perhaps consider a plan for benzo taper to see if improved. I do not believe giving Mr. Pinzon an Haldol/Zyprexa would be a good option and would not help with benzo withdrawal. Apologies to day time provider, I hoped to avoid use of benzos as what treatment plan reflects; his night presentation/agitation appears significantly different than during the day. Resident Activity Tracking Resident Involvement: Resident Care Provided Care Provided: Adult [facility] Medicine
[2020-05-23] MEDS: HEPARIN SOD 5,000 UNIT/0.5 ML VIAL SQ SCH ×3 (05:23→21:25)
[2020-05-23 06:43] LABS: Hematocrit (blood only) 42.9 % (42-52); Mean Corpuscular Hemoglobin 37.7 pg (25-34); Mean Corpuscular Hgb Conc 32.6 g/dL (32-36); Mean Corpuscular Volume 115.6 fL (80-100); Mean Platelet Volume 11.7 fL (7.4-10.4); Platelet Count 129 K/uL (130-400); RDW Coefficient of Variation 17.2 % (11.5-14.5); RDW Standard Deviation 72.4 fL (36.4-46.3); Red Blood Count 3.71 M/uL (4.7-6.1); White Blood Count 19.12 K/uL (4.8-10.8)
[2020-05-23 08:30] LABS: Albumin Globulin Ratio 0.4 (0.9-2); Albumin Level 1.5 gm/dl (3.4-5.0); BUN Creatinine Ratio 29.6 (10-20); Bilirubin,Total 10.8 mg/dl (0.2-1); Creatinine Clr Calc Pharmacy 115.8 ml/min; Est GFR (African American) 118.7; Est GFR (Non-African American) 102.4; Globulin 4.1 gm/dl (2.5-4.0); Potassium 3.6 mmol/L (3.5-5.1); Total Protein 5.6 gm/dl (6.4-8.2)
[2020-05-23] MEDS: PANTOprazole 40 MG in SYRINGE 0 ML IV SCH ×2 (09:27→21:24)
[2020-05-23] MEDS: methylPREDNISolone 32 MG in SYRINGE 0 ML IV SCH (09:27)
[2020-05-23] MEDS: SUCRALFATE 1 GM/10 ML UDC PO SCH ×4 (09:27→21:23)
[2020-05-23] MEDS: FOLIC ACID 1 MG in SYRINGE 9.8 ML IV SCH (09:28)
[2020-05-23] MEDS: NYSTATIN OINT 15 GM TUBE EXT SCH ×4 (09:29→21:30)
[2020-05-23] MEDS: NICOTINE 21 MG/24 HR TDSY TD SCH (09:29)
[2020-05-23] MEDS: THIAMINE HCL 200 MG in SODIUM CHLORIDE 0.9% 50 ML IV SCH ×2 (10:02→21:22)
[2020-05-23] MEDS ORDERED: LORazepam 1 MG/2 ML VIAL IV PRN (10:36)
[2020-05-23] MEDS ORDERED: GADOBUTROL 65ML VIAL IV ONE (13:14)
--- NOTE | 2020-05-23 13:25 | Magnetic Resonance Report ---
MR brain wo/w con HISTORY: 59 years-old Male Encephalopathy, not improving depression with encephalopathy COMPARISON: Head CT 05/17/2020 TECHNIQUE: Multiplanar multisequence MRI of the brain was obtained both with and without the use of 9 .0 mL Gadavist FINDINGS: Bilingual Teacher Aide localizer images demonstrate no gross extracranial abnormality. There is no restricted diffusio n to suggest acute or subacute infarct. Midline structures including the corpus callosum, brainstem, optic chiasm, pituitary and pineal glands appear unremarkable the sagittal T1 series. The study is mo tion degraded. Degenerative changes are noted involving the imaged cervical spine. There is no acute intracranial hemorrhage, midline shift, abnormal extra-axial collection, hydrocepha oksana or intracranial mass. Mild patchy T2/FLAIR hyperintensities throughout the white matter are nonsp ecific, possibly reflective of early chronic microvascular ischemic disease. There is no intra-axial or extra-axial enhancement. Major vascular flow voids are patent. Moderate mastoid effusions. Rightwa rd bowing and spurring of the nasal septum. Mild mucosal thickening of the ethmoid air cells and nasa l turbinates. IMPRESSION: 1. Motion degraded exam without acute intracranial abnormality identified, specifically there is no e vidence of acute or subacute infarct. 2. No abnormal enhancement. 3. Moderate mastoid effusions. ACT 112: Negative or not required by law. The above report was generated using voice recognition software. It may contain grammatical, syntax o r spelling errors. Electronically signed by: Vick Patel M.D. 05/23/2020 1:23 PM
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
[2020-05-24] MEDS: LORazepam 0.5 MG/1 ML VIAL IV PRN ×2 (02:15→16:06)
[2020-05-24] MEDS: HEPARIN SOD 5,000 UNIT/0.5 ML VIAL SQ SCH ×3 (05:30→20:29)
[2020-05-24 07:40] LABS: Albumin Globulin Ratio 0.4 (0.9-2); Albumin Level 1.4 gm/dl (3.4-5.0); BUN Creatinine Ratio 26.3 (10-20); Bilirubin,Total 9.9 mg/dl (0.2-1); Calcium 8.3 mg/dl (8.5-10.1); Creatinine Clr Calc Pharmacy 105.1 ml/min; Est GFR (African American) 114.3; Est GFR (Non-African American) 98.7; Globulin 3.9 gm/dl (2.5-4.0); Magnesium 2.1 mg/dl (1.8-2.4); Phosphorus 2.9 mg/dl (2.5-4.9); Potassium 3.7 mmol/L (3.5-5.1); Total Protein 5.3 gm/dl (6.4-8.2)
[2020-05-24] MEDS ORDERED: carvediloL 6.25 MG TAB PO SCH (09:00)
[2020-05-24] MEDS ORDERED: DEXTROSE 5% 1,000 ML IV SCH (09:15)
[2020-05-24] MEDS: PANTOprazole 40 MG in SYRINGE 0 ML IV SCH ×2 (09:31→20:29)
[2020-05-24] MEDS: FOLIC ACID 1 MG in SYRINGE 9.8 ML IV SCH (09:31)
[2020-05-24] MEDS: THIAMINE HCL 200 MG in SODIUM CHLORIDE 0.9% 50 ML IV SCH ×2 (09:31→21:31)
[2020-05-24] MEDS: SUCRALFATE 1 GM/10 ML UDC PO SCH ×4 (09:31→20:29)
[2020-05-24] MEDS: methylPREDNISolone 32 MG in SYRINGE 0 ML IV SCH (09:32)
[2020-05-24] MEDS: NICOTINE 21 MG/24 HR TDSY TD SCH (09:32)
[2020-05-24] MEDS: NYSTATIN OINT 15 GM TUBE EXT SCH ×4 (09:35→20:29)
[2020-05-24] MEDS: lisinopriL 5 MG TAB PO SCH (09:35)
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
[2020-05-24] MEDS: carvediloL 12.5 MG TAB PO SCH (20:37)
[2020-05-25] MEDS: HEPARIN SOD 5,000 UNIT/0.5 ML VIAL SQ SCH ×3 (05:24→20:10)
[2020-05-25 06:21] LABS: Hematocrit (blood only) 39.3 % (42-52); Hemoglobin 13.3 g/dL (14.0-18.0); Mean Corpuscular Hemoglobin 39.6 pg (25-34); Mean Corpuscular Hgb Conc 33.8 g/dL (32-36); Mean Platelet Volume 11.7 fL (7.4-10.4); Platelet Count 148 K/uL (130-400); RDW Coefficient of Variation 16.6 % (11.5-14.5); RDW Standard Deviation 71.8 fL (36.4-46.3); Red Blood Count 3.36 M/uL (4.7-6.1); White Blood Count 14.64 K/uL (4.8-10.8)
[2020-05-25 06:31] LABS: INR 1.4 (0.9-1.1); Prothrombin Time 14.3 Seconds (9.0-12.0)
--- NOTE | 2020-05-25 06:47 | Communication Note ---
Date of Service: May 25, 2020 paged by nurse, stating that patient rolled out of bed and was complaining of head and bilateral hip pain. Patient was helped back into bed by nursing. Patient not on a blood thinner. Neuro check performed by nurse reportedly normal. On exam: Patient with obvious confusion on exam (although this is unchanged from prior exams, per documentation). R hip - tender to palpation, patient unable to raise R leg off bed, sensation intact to gross touch, able to wiggle toes. L hip- non-tender, patient able to raise leg off bed, sensation intact to gross touch, able to wiggle toes. XRay of R hip ordered.
[2020-05-25 06:52] LABS: Albumin Level 1.3 gm/dl (3.4-5.0); BUN Creatinine Ratio 26.7 (10-20); Calcium 8.1 mg/dl (8.5-10.1); Creatinine Clr Calc Pharmacy 117.8 ml/min; Est GFR (African American) 119.3; Potassium 3.9 mmol/L (3.5-5.1)
[2020-05-25 07:00] LABS: Albumin Globulin Ratio 0.4 (0.9-2); Bilirubin,Total 8.4 mg/dl (0.2-1); Globulin 3.5 gm/dl (2.5-4.0); Total Protein 4.8 gm/dl (6.4-8.2)
[2020-05-25] MEDS: PANTOprazole 40 MG in SYRINGE 0 ML IV SCH ×2 (07:53→20:09)
[2020-05-25] MEDS: THIAMINE HCL 200 MG in SODIUM CHLORIDE 0.9% 50 ML IV SCH ×2 (07:53→20:20)
[2020-05-25] MEDS: FOLIC ACID 1 MG in SYRINGE 9.8 ML IV SCH (07:53)
[2020-05-25] MEDS: SUCRALFATE 1 GM/10 ML UDC PO SCH ×4 (07:57→20:09)
[2020-05-25] MEDS: carvediloL 12.5 MG TAB PO SCH ×2 (07:57→20:10)
[2020-05-25] MEDS: lisinopriL 5 MG TAB PO SCH (07:57)
[2020-05-25] MEDS: NYSTATIN OINT 15 GM TUBE EXT SCH ×4 (07:58→20:09)
[2020-05-25] MEDS: prednisoLONE SYRUP 15 MG/5 ML BTL PO SCH (07:58)
[2020-05-25] MEDS: NICOTINE 21 MG/24 HR TDSY TD SCH (07:58)
--- NOTE | 2020-05-25 09:13 | XRay Report ---
XR hip RT 2V w pelvis HISTORY: 59 years-old Male Pain after fall, unable to lift leg acute bilateral hip pain status post fall COMPARISON: CT abdomen and pelvis 05/18/2020 TECHNIQUE: AP view of the pelvis with 2 views of the right hip FINDINGS: Multiple probable phleboliths of the pelvis. 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 No acute fracture, dislocation or avascular necrosis. IMPRESSION: No acute fracture or dislocation. ACT 112: Negative or not required by law. The above report was generated using voice recognition software. It may contain grammatical, syntax o r spelling errors. Electronically signed by: Vick Patel M.D. 05/25/2020 9:12 AM
--- NOTE | 2020-05-25 16:19 | Hospitalist Progress Note ---
Date of Service May 25, 2020 Assessment & Plan (1) Acute alcoholic hepatitis: mental status improving a lot the past two days, less agitated he is having some hallucinations today which are new t.bili down to 8.4 from 9.9, steadily improving the past three days which is good sign his severe acute liver failure was 2nd to heavy etoh use. INR 1.4 today, has never been above 2 s/p NAC protocol. will need 28 days of IV/PO steroids switch to Prednisolone 40mg PO daily on 05/24 needs two more weeks of steroids last day would be 06/08 cont supportive care, serial labs, etc. ammonia levels have been consistently normal including level on 05/17. noted that he has a leukocytosis due to steroids, going down today (2) Abdominal pain: improved. with IV PPI and carafate QID. CT abd/pelvis with ?colitis but no other findings. no complaints of pain for four days, appears comfortable suspicious he has gastritis or PUD. treated with Protonix 40 IV BID, change to Protonix 40mg PO daily recent lipase wnl, c diff negative, stool cx negative minimal ascites on CT - doubt SBP (and he had been on 7 day run of rocephin, too) portal vein dopplers neg for PVT if pain persists then reconsult GI for consideration of EGD. of note - esophageal varices were seen on CT abdomen. (3) Hypernatremia: up to 149 on 05/24, Cl also elevated Na down to 145 today free water deficit calculated to be 3.4 liters encourage him to drink water, placed on D5W at 80cc/hr on 05/23 repeat BMP in the morning, will d/c the D5W today (4) Acute respiratory failure with hypoxia: resolved 2nd pneumonia and volume overload (from acute hepatitis as well as systolic CHF) cxr 05/17 with overall improved infiltrates completed 7-day course rocephin received several days of diuresis - now resolved (5) Systolic CHF: acute/chronic ef 40-45% now euvolemic or even mildly volume contracted no further lasix resume Coreg but at lower dose at 6.25mg BID, lisinopril but at 5mg daily (6) Acute metabolic encephalopathy: ongoing. this has been severe the entire stay. suspect multifactorial in origin. metabolic from infection (pneumonia), acute liver injury, etc. possibly toxic from copious IV ativan (while he was in ICU). CT head 05/11 and 05/17 negative for acute process. remains on high-dose thiamine IV for prevention of Wernicke's encephalopathy. VBGs w/o hypercarbia. TSH, B12 wnl. ammonia wnl. He is now about 15 days out from his last etoh beverage. Theoretically he could still be withdrawing from etoh but this should be nearly done. He could easily have Wernicke's even despite the high-dose thiamine. MRI brain 05/23, no stroke, no tumor, no acute changes hallucinations on 05/25, visual, kids jumping on his bed, troubling him will try low dose Zyprexa 2.5mg HS, this should be safe with his liver but will use with caution reassess tomorrow (7) Liver cirrhosis: 2nd to etoh. HepC RNA negative. Appreciate GI consultation and recs Treating acute liver injury as above. (8) Pneumonia: b/l community-acquired vs aspiration completed 7 days of rocephin O2 sats stable in RA (9) Acute hyponatremia: resolved (10) Tobacco use disorder: nicoderm patch daily (11) Alcohol withdrawal: received IV ativan while in ICU. the ativan was stopped due to excess sedation in setting of copious use. he again did not tolerate IV ativan on 05/17 for apparent withdrawal symptoms. he received Ativan 1mg IV for MRI 05/23, he woke up clear after it was used will use Ativan 0.5mg q6 PRN for agitation, trying to get out of bed much calmer today (12) Ischemic cardiomyopathy: EF 40-45% on echo this admission ultimately needs SARI and BB back no further diuresis resume Coreg tomorrow at lower dose of 6.25mg BID BP is soft, start Lisinopril at 5mg daily (13) Depression: needs Rx once mentation improved and able to take meds would involve psych later this stay (14) Alcohol dependence: states she wants rehab for patient post-d/c cont high-dose thiamine, folic acid was drinking 30 beers/day pre-hospitalization (15) Hypokalemia: 3.9 today (16) Hypomagnesemia: resolved (17) Dysphagia: speech saw again, recommend pureed diet has delayed retropulsion of food to back of throat so no foods that need to be chewed CT head w/o stroke on 2 occasions MRI brain without stroke, done on 05/23 dysphagia could be from severe encephalopathy leading to poor swallow function perhaps critical illness myopathy contributing as well? he is eating better each day (18) Muscle weakness: severe weakness on exam it is symmetric in all limbs CPK wnl critical illness myopathy? PT, OT when able will need rehab post-d/c (19) DVT prophylaxis: heparin SC multiple updates given to by phone over the last week by Dr. Shane cont PT, OT if able to participate slowly starting to improve, prognosis is guarded anticipate discharge later this week, follow up labs in AM, see if his hallucinations improve/resolve with Zyprexa Admission and Anticipated Discharge Date Admission Date: May 11, 2020 Subjective patient is confused today, having hallucinations he said there were 4 kids jumping on his bed this morning, his dad would not tell them to get off he was upset about this he rolled out of bed early this morning, evaluated by resident, no obvious injuries reviewed labs, bilirubin continues to improve at 8.4, other LFT stable INR is 1.4, WBC down to 14k, Hb stable patient is eating and drinking well will try some Zyprexa HS to see if it helps his hallucinations Review of Systems Review of Systems: Unobtainable due to cognitive status (confused) Physical Exam Constitutional: well developed, well nourished and + ill appearing (appears older than age); no acute distress and + not well groomed Eyes: PERRL, conjunctivae normal, anicteric sclerae ENMT: external ear and nose normal, oropharynx normal Neck: trachea midline, no thyromegaly Respiratory: normal respiratory effort, lungs clear to auscultation Cardiovascular: RRR, no murmur, no edema Gastrointestinal (Abdomen): normal bowel sounds, soft, nontender, no hepatosplenomegaly Musculoskeletal: no cyanosis or clubbing, extremities motor strength 5/5 Skin: normal turgor and + jaundice; no rashes and no wound Neurologic: normal touch/pain/proprioception, CN's II-XI intact bilaterally and awake; no focal motor deficits Speech / Cognition: + abnormal speech Psychiatric: Orientation: alert, oriented to person and cooperative; + not oriented to place and + not oriented to time Hallucinations: + visual hallucinations Cognition: + recent memory not intact Insight: + limited insight Lymphatic: no cervical or axillary lymphadenopathy Results & Data Results & Data ([facility]) Vital Signs (Past 12 Hours) Vital Signs Temp Pulse Pulse Resp BP Pulse Ox 05/25/20 14:57 36.5 C 64 22 93/56 L 92 05/25/20 09:46 70 05/25/20 07:25 36.9 C 74 18 101/57 L 93 05/25/20 07:00 36.6 C 70 17 100/66 92 05/25/20 05:00 102/86 92 Laboratory Results Laboratory Results - last 24 hr 05/25/20 05/25/20 05/25/20 06:01 06:01 06:01 WBC 14.64 H RBC 3.36 L Hgb 13.3 L Hct 39.3 L MCV 117.0 H MCH 39.6 H MCHC 33.8 RDW Std Deviation 71.8 H RDW Coeff of [place] 16.6 H Plt Count 148 MPV 11.7 H PT 14.3 H INR 1.4 H Sodium 145 Potassium 3.9 Chloride 113 H Carbon Dioxide 26 Anion Gap 6.0 BUN 20 H Creatinine 0.73 Est Cr Clr Drug Dosing 117.8 Est GFR ( Amer) 119.3 Est GFR (Non-Af Amer) 103.0 BUN/Creatinine Ratio 26.7 H Glucose 80 Calcium 8.1 L Total Bilirubin 8.4 H AST 73 H ALT 55 Alkaline Phosphatase 170 H Total Protein 4.8 L Albumin 1.3 L Globulin 3.5 Albumin/Globulin Ratio 0.4 L Medications Administered Current Inpatient Medications Albuterol (Albut/Ipratrop 3mg/0.5mg Neb 3 Ml Vial) 3 ml NEB Q4R PRN PRN Reason: wheeze Stop: 06/13/20 10:59 Benzocaine (Benzocaine 20% Aer Spr 82.5 Gm Can) 1 appln EXT UD PRN PRN Reason: Pain Stop: 06/14/20 11:17 Last Admin: 05/15/20 16:00 Dose: 1 appln Documented by: Calamine/Phenol (Menthol-Zinc Oxide 360 Appln/120 Gm Tube) 1 appln EXT UD WESLY Stop: 06/14/20 19:59 Last Admin: 05/15/20 20:52 Dose: 1 appln Documented by: Carvedilol (Carvedilol 12.5 Mg Tab) 12.5 mg PO BID WESLY Stop: 06/23/20 20:59 Last Admin: 05/25/20 07:57 Dose: 12.5 mg Documented by: Dextrose (Dextrose 50% 50 Ml Syringe) 25 - 50 ml IV UD PRN; Protocol PRN Reason: Hypoglycemia Protocol Stop: 06/10/20 21:08 Glucagon (Glucagon For Inj 1 Mg Vial) 1 mg SQ UD PRN; Protocol PRN Reason: Hypoglycemia Protocol Stop: 06/10/20 21:08 Glucose (Glucose 10 Tabs/Tube) 4 - 8 tabs PO UD PRN; Protocol PRN Reason: Hypoglycemia Protocol Stop: 06/10/20 21:08 Glucose (Glucose 40% Gel 15 Gm Tube) 15 - 30 gm PO UD PRN; Protocol PRN Reason: Hypoglycemia Protocol Stop: 06/10/20 21:08 Heparin Sodium (Porcine) (Heparin Sod 5,000 Unit/0.5 Ml Vial) 5,000 units SQ Q8 WESLY Stop: 06/20/20 08:59 Last Admin: 05/25/20 14:09 Dose: 5,000 units Documented by: Folic Acid 1 mg/ Syringe 10 mls @ 5 mls/min IV QAM WESLY Stop: 06/11/20 10:59 Last Admin: 05/25/20 07:53 Dose: 5 mls/min Documented by: Pantoprazole Sodium 40 mg/ (Syringe) 10 mls @ 5 mls/min IV BID WESLY Stop: 06/15/20 20:59 Last Admin: 05/25/20 07:53 Dose: 5 mls/min Documented by: Thiamine HCl 200 mg/ Sodium (Chloride) 52 mls @ 208 mls/hr IV BID WESLY Stop: 06/16/20 12:29 Last Infusion: 05/25/20 08:22 Dose: Infused Documented by: Lorazepam (Ativan) 0.5 mg in 1 mls @ 1 mls/min IV Q8 PRN PRN Reason: Agitation Stop: 06/22/20 18:41 Last Admin: 05/24/20 16:06 Dose: 1 mls/min Documented by: Lisinopril (Lisinopril 5 Mg Tab) 5 mg PO QAM WESLY Stop: 06/23/20 08:59 Last Admin: 05/25/20 07:57 Dose: 5 mg Documented by: Miscellaneous (Carbohydrates For Hypoglycemia ) 15 - 30 gm PO UD PRN PRN Reason: Hypoglycemia Protocol Stop: 06/10/20 21:08 Miscellaneous (Remove Nicoderm Patch) 1 ea N/A DAILY@0859 [facility] Stop: 06/11/20 13:44 Last Admin: 05/25/20 07:56 Dose: 1 ea Documented by: Nicotine (Nicotine 21 Mg/24 Hr Tdsy) 21 mg TD QAM WESLY Stop: 06/11/20 13:44 Last Admin: 05/25/20 07:58 Dose: 21 mg Documented by: Nystatin (Nystatin Oint 15 Gm Tube) 1 appln EXT QID WESLY Stop: 06/11/20 16:59 Last Admin: 05/25/20 16:05 Dose: 1 appln Documented by: Olanzapine (Olanzapine 2.5 Mg Tab) 2.5 mg PO HS [facility] Stop: 06/24/20 20:59 Prednisolone (Prednisolone Syrup 15 Mg/5 Ml Btl) 40 mg PO DAILY [facility] Stop: 06/24/20 08:59 Last Admin: 05/25/20 07:58 Dose: 40 mg Documented by: Sucralfate (Sucralfate 1 Gm/10 Ml Udc) 1 gm PO QID WESLY Stop: 06/17/20 16:59 Last Admin: 05/25/20 16:05 Dose: 1 gm Documented by: PG Care Time/CCT Total # of Minutes Spent Total Time Spent with Patient: Total time spent is greater than 50% in coordination of care (as documented) at patient's floor/unit and/or counseling patient: Coding Level of Care Code 55690 Subseq Hosp Care Lvl 3 Diagnoses Acute alcoholic hepatitis K70.10 Abdominal pain R10.13 Abdominal location: epigastric Hypernatremia E87.0 Acute respiratory failure with hypoxia J96.01 Systolic CHF I50.20 Acute metabolic encephalopathy G93.41 Liver cirrhosis K74.60 Pneumonia J18.9 Acute hyponatremia E87.1 Tobacco use disorder F17.200 Alcohol withdrawal F10.239 Ischemic cardiomyopathy I25.5 Depression F32.9 Alcohol dependence F10.229 Complication of substance-induced condition: with unspecified complication Substance use status: with intoxication Hypokalemia E87.6 Hypomagnesemia E83.42 Dysphagia R13.10 Dysphagia type: unspecified Muscle weakness M62.81 DVT prophylaxis Z29.9 (1) Alcohol dependence Complication of substance-induced condition: with unspecified complication Substance use status: with intoxication Qualified Code(s): F10.229 - Alcohol dependence with intoxication, unspecified (2) Dysphagia Dysphagia type: unspecified Qualified Code(s): R13.10 - Dysphagia, unspecified (3) Abdominal pain Abdominal location: epigastric Qualified Code(s): R10.13 - Epigastric pain
[2020-05-25] MEDS: OLANZAPINE 2.5 MG TAB PO SCH (20:09)
[2020-05-26] MEDS: HEPARIN SOD 5,000 UNIT/0.5 ML VIAL SQ SCH ×3 (06:08→21:29)
[2020-05-26 06:11] LABS: Hematocrit (blood only) 41.5 % (42-52); Hemoglobin 13.5 g/dL (14.0-18.0); Mean Corpuscular Hemoglobin 37.8 pg (25-34); Mean Corpuscular Hgb Conc 32.5 g/dL (32-36); Mean Corpuscular Volume 116.2 fL (80-100); Mean Platelet Volume 12.1 fL (7.4-10.4); Nucleated RBC # (auto) 0.02 K/uL (0-0); Nucleated RBC % (auto) 0.1 %; Platelet Count 184 K/uL (130-400); RDW Coefficient of Variation 16.4 % (11.5-14.5); RDW Standard Deviation 69.6 fL (36.4-46.3); Red Blood Count 3.57 M/uL (4.7-6.1); White Blood Count 19.54 K/uL (4.8-10.8)
[2020-05-26 06:42] LABS: Albumin Level 1.3 gm/dl (3.4-5.0); BUN Creatinine Ratio 28.6 (10-20); Calcium 7.8 mg/dl (8.5-10.1); Creatinine Clr Calc Pharmacy 99.5 ml/min; Est GFR (Non-African American) 95.8; Potassium 3.3 mmol/L (3.5-5.1)
[2020-05-26 06:46] LABS: Albumin Globulin Ratio 0.4 (0.9-2); Bilirubin,Total 8.5 mg/dl (0.2-1); Globulin 3.7 gm/dl (2.5-4.0)
[2020-05-26] MEDS: carvediloL 12.5 MG TAB PO SCH ×2 (07:36→20:53)
[2020-05-26] MEDS: FOLIC ACID 1 MG in SYRINGE 9.8 ML IV SCH (07:36)
[2020-05-26] MEDS: NICOTINE 21 MG/24 HR TDSY TD SCH (07:36)
[2020-05-26] MEDS: lisinopriL 5 MG TAB PO SCH (07:40)
[2020-05-26] MEDS: NYSTATIN OINT 15 GM TUBE EXT SCH ×4 (07:40→20:56)
[2020-05-26] MEDS: SUCRALFATE 1 GM/10 ML UDC PO SCH ×4 (07:40→20:54)
[2020-05-26] MEDS: prednisoLONE SYRUP 15 MG/5 ML BTL PO SCH (07:40)
[2020-05-26] MEDS: THIAMINE HCL 200 MG in SODIUM CHLORIDE 0.9% 50 ML IV SCH ×2 (07:50→21:29)
[2020-05-26] MEDS: PANTOprazole 40 MG TAB PO SCH (07:50)
--- NOTE | 2020-05-26 08:02 | Hospitalist Progress Note ---
Date of Service May 26, 2020 Assessment & Plan (1) Acute alcoholic hepatitis: mental status improving, less agitated, persistent hallucinations T bili slightly improved but remains in the 8 g range his severe acute liver failure was 2nd to heavy etoh use. INR only mildly affected s/p NAC protocol. Is on steroids for alcoholic hepatitis will need 28 days of IV/PO steroids switched to Prednisolone 40mg PO daily on 05/24 needs two more weeks of steroids last day would be 06/08 [place] that leukocytosis due to steroids (2) Abdominal pain: improved. with IV PPI and carafate QID. CT abd/pelvis with ?colitis but no other findings. suspicious he has gastritis or PUD. treated with Protonix 40 IV BID, change to Protonix 40mg PO daily recent lipase wnl, c diff negative, stool cx negative minimal ascites on CT - doubt SBP (and he had been on 7 day run of rocephin, too) portal vein dopplers neg for PVT of note - esophageal varices were seen on CT abdomen. (3) Hypernatremia: up to 149 on 05/24, Cl also elevated improved (4) Acute respiratory failure with hypoxia: resolved 2nd pneumonia and volume overload (from acute hepatitis as well as systolic CHF) cxr 05/17 with overall improved infiltrates completed 7-day course rocephin received several days of diuresis - now resolved (5) Systolic CHF: acute/chronic ef 40-45% now euvolemic or even mildly volume contracted no further lasix resume Coreg but at lower dose at 6.25mg BID, lisinopril but at 5mg daily (6) Acute metabolic encephalopathy: ongoing. this has been severe the entire stay. suspect multifactorial in origin. metabolic from infection (pneumonia), acute liver injury, etc. possibly toxic from copious IV ativan (while he was in ICU). CT head 05/11 and 05/17 negative for acute process. remains on high-dose thiamine IV for prevention of Wernicke's encephalopathy. VBGs w/o hypercarbia. TSH, B12 wnl. ammonia wnl. He is now about 15 days out from his last etoh beverage. Theoretically he could still be withdrawing from etoh but this should be nearly done. possibly Wernicke's even despite the high-dose thiamine. MRI brain 05/23, no stroke, no tumor, no acute changes hallucinations improved but not extinguished with low dose Zyprexa 2.5mg HS (7) Liver cirrhosis: 2nd to etoh. HepC RNA negative. Appreciate GI consultation and recs Treating acute liver injury as above. (8) Pneumonia: b/l community-acquired vs aspiration completed 7 days of rocephin O2 sats stable in RA (9) Acute hyponatremia: resolved (10) Tobacco use disorder: nicoderm patch daily (11) Alcohol withdrawal: received IV ativan while in ICU. the ativan was stopped due to excess sedation in setting of copious use. he again did not tolerate IV ativan on 05/17 for apparent withdrawal symptoms. he received Ativan 1mg IV for MRI 05/23, he woke up clear after it was used will use Ativan 0.5mg q6 PRN for agitation, trying to get out of bed much calmer today (12) Ischemic cardiomyopathy: EF 40-45% on echo this admission ultimately needs SARI and BB back no further diuresis resumed Coreg at lower dose of 6.25mg BID BP is soft, start Lisinopril at 5mg daily (13) Depression: needs Rx once mentation improved and able to take meds would involve psych later this stay (14) Alcohol dependence: states she wants rehab for patient post-d/c cont high-dose thiamine, folic acid was drinking 30 beers/day pre-hospitalization (15) Hypokalemia: 3.9 today (16) Hypomagnesemia: resolved (17) Dysphagia: speech saw again, recommend pureed diet has delayed retropulsion of food to back of throat so no foods that need to be chewed CT head w/o stroke on 2 occasions MRI brain without stroke, done on 05/23 dysphagia could be from severe encephalopathy leading to poor swallow function perhaps critical illness myopathy contributing as well? (18) Muscle weakness: severe weakness on exam it is symmetric in all limbs CPK wnl critical illness myopathy? PT, OT when able (19) DVT prophylaxis: heparin SC cont PT, OT if able to participate slowly starting to improve, prognosis is guarded anticipate discharge later this week, follow up labs in AM, see if his hallucinations improve/resolve with Zyprexa Admission and Anticipated Discharge Date Admission Date: May 11, 2020 Subjective Patient continues have hallucinations. Not particularly frightening to him. Today he was hallucinating his animals and trees were in his room. I did speak to his is at the bedside today. Review of Systems Review of Systems: Of systems are difficult as the patient is currently having active hallucinations. Moderate distress and fatigue falls asleep easily no headache, blurry or double vision no speech or swallowing issues no chest pain, pressure or palpitations no shortness of breath, cough or wheezes Mild abdominal pain and some distention no dysuria, hematuria or frequency no focal joint pain bilateral lower extremity swelling no back pain, CVA tenderness or radicular pain no bruising, bleeding or rashes no focal signs of weakness or numbness Planes of active hallucinations Physical Exam Physical Exam: The patient appeared chronically ill and much older than his stated age Vital signs as documented. Head exam is normocephalic atraumatic no scleral icterus Neck is with JVD, thyromegaly, or carotid bruits. Lungs are clear to auscultation, no focal loss of breath sounds Cardiac exam, Rhythm is regular.. No murmurs, rubs or gallops. Abdominal exam reveals normal bowel sounds, soft and distended fluid wave is present Extremities are 1-2+ edematous and both pedal pulses are normal. Neurologic exam is alert and oriented x2, no focal loss of strength or sensation Skin is without bruises or rashes Psychologically is with concern for persistent confusion and hallucinations Results & Data Results & Data ([facility]) Vital Signs (Past 12 Hours) Vital Signs Temp Pulse Pulse Resp BP Pulse Ox 05/26/20 06:59 98.1 F 66 20 110/72 94 05/26/20 02:09 97.9 F 70 26 H 97/62 L 91 05/26/20 00:03 79 05/25/20 21:55 97.7 F 74 20 100/67 93 PG Care Time/CCT Total # of Minutes Spent Total Time Spent with Patient: Total time spent is greater than 50% in coordination of care (as documented) at patient's floor/unit and/or counseling patient: Coding Level of Care Code 14193 Subseq Hosp Care Lvl 3 Diagnoses Acute alcoholic hepatitis K70.10 Abdominal pain R10.13 Abdominal location: epigastric Hypernatremia E87.0 Acute respiratory failure with hypoxia J96.01 Systolic CHF I50.20 Acute metabolic encephalopathy G93.41 Liver cirrhosis K74.60 Pneumonia J18.9 Acute hyponatremia E87.1 Tobacco use disorder F17.200 Alcohol withdrawal F10.239 Ischemic cardiomyopathy I25.5 Depression F32.9 Alcohol dependence F10.229 Complication of substance-induced condition: with unspecified complication Substance use status: with intoxication Hypokalemia E87.6 Hypomagnesemia E83.42 Dysphagia R13.10 Dysphagia type: unspecified Muscle weakness M62.81 DVT prophylaxis Z29.9 (1) Alcohol dependence Complication of substance-induced condition: with unspecified complication Substance use status: with intoxication Qualified Code(s): F10.229 - Alcohol dependence with intoxication, unspecified (2) Dysphagia Dysphagia type: unspecified Qualified Code(s): R13.10 - Dysphagia, unspecified (3) Abdominal pain Abdominal location: epigastric Qualified Code(s): R10.13 - Epigastric pain
[2020-05-26 09:38] LABS: Lyme Ab IgG w/WB Rflx Negative (Negative)
[2020-05-26 09:39] LABS: Lyme Ab IgM w/WB Rflx Negative (Negative)
[2020-05-26] MEDS: OLANZAPINE 2.5 MG TAB PO SCH (20:53)
[2020-05-26] MEDS: GABAPENTIN 100 MG CAP PO SCH (20:57)
[2020-05-26] MEDS ORDERED: LORazepam 2 MG/4 ML VIAL IV STA (21:12)
[2020-05-27] MEDS: HEPARIN SOD 5,000 UNIT/0.5 ML VIAL SQ SCH ×3 (05:17→21:00)
[2020-05-27 06:00] LABS: Hematocrit (blood only) 39.2 % (42-52); Hemoglobin 12.9 g/dL (14.0-18.0); Mean Corpuscular Hemoglobin 37.6 pg (25-34); Mean Corpuscular Hgb Conc 32.9 g/dL (32-36); Mean Corpuscular Volume 114.3 fL (80-100); Mean Platelet Volume 11.8 fL (7.4-10.4); Platelet Count 165 K/uL (130-400); RDW Coefficient of Variation 16.5 % (11.5-14.5); RDW Standard Deviation 69.6 fL (36.4-46.3); Red Blood Count 3.43 M/uL (4.7-6.1); White Blood Count 17.31 K/uL (4.8-10.8)
[2020-05-27 06:27] LABS: Albumin Level 1.2 gm/dl (3.4-5.0); BUN Creatinine Ratio 34.4 (10-20); Creatinine Clr Calc Pharmacy 93.1 ml/min; Est GFR (African American) 105.2; Est GFR (Non-African American) 90.8; Potassium 3.5 mmol/L (3.5-5.1)
[2020-05-27 06:37] LABS: Albumin Globulin Ratio 0.3 (0.9-2); Bilirubin,Total 7.3 mg/dl (0.2-1); Globulin 3.5 gm/dl (2.5-4.0); Total Protein 4.7 gm/dl (6.4-8.2)
[2020-05-27] MEDS: FOLIC ACID 1 MG in SYRINGE 9.8 ML IV SCH (07:24)
[2020-05-27] MEDS: NICOTINE 21 MG/24 HR TDSY TD SCH (07:24)
[2020-05-27] MEDS: NYSTATIN OINT 15 GM TUBE EXT SCH (07:24)
[2020-05-27] MEDS: THIAMINE HCL 200 MG in SODIUM CHLORIDE 0.9% 50 ML IV SCH ×2 (07:29→21:00)
[2020-05-27] MEDS: carvediloL 12.5 MG TAB PO SCH ×3 (11:25→21:18)
[2020-05-27] MEDS: PANTOprazole 40 MG TAB PO SCH (11:27)
[2020-05-27] MEDS: lisinopriL 5 MG TAB PO SCH (11:27)
[2020-05-27] MEDS: prednisoLONE SYRUP 15 MG/5 ML BTL PO SCH (11:27)
[2020-05-27] MEDS: SUCRALFATE 1 GM/10 ML UDC PO SCH (11:27)
[2020-05-27] MEDS: GABAPENTIN 100 MG CAP PO SCH (11:27)
--- NOTE | 2020-05-27 17:34 | Hospitalist Progress Note ---
Date of Service May 27, 2020 Assessment & Plan (1) Acute metabolic encephalopathy: ongoing. This has been severe the entire stay. suspect multifactorial in origin. metabolic from infection (pneumonia), acute liver injury, etc. possibly toxic from copious IV ativan (while he was in ICU). CT head 05/11 and 05/17 negative for acute process. remains on high-dose thiamine IV for prevention of Wernicke's encephalopathy. VBGs w/o hypercarbia. TSH, B12 wnl. ammonia wnl. He is now about > 14 days out from his last etoh beverage. possibly Wernicke's even despite the high-dose thiamine. MRI brain 05/23, no stroke, no tumor, no acute changes hallucinations improved but not extinguished with low dose Zyprexa 2.5mg HS, was sedated overnight 05/27. no suggestion of meningeal or brain inflamation on MRI 05/23 . Motion degraded exam without acute intracranial abnormality identified, specifically there is no evidence of acute or subacute infarct. No abnormal enhancement. Moderate mastoid effusions. If not improving will have neurology evaluation (2) Acute alcoholic hepatitis: Cirrhosis on imaging T bili slowly resolving his severe acute liver failure was 2nd to heavy etoh use. INR only mildly affected s/p NAC protocol. Is on steroids for alcoholic hepatitis will need 28 days of IV/PO steroids switched to Prednisolone 40mg PO daily on 05/24 needs two more weeks of steroids last day would be 06/08 Hep c RNa is negative (3) Abdominal pain: improved. with IV PPI and carafate QID. CT abd/pelvis with ?colitis but no other findings. suspicious he has gastritis or PUD. treated with Protonix 40 IV BID, change to Protonix 40mg PO daily recent lipase wnl, c diff negative, stool cx negative minimal ascites on CT - doubt SBP (and he had been on 7 day run of rocephin, too) portal vein dopplers neg for PVT of note - esophageal varices were seen on CT abdomen. (4) Ischemic cardiomyopathy: EF 40-45% on echo this admission - now with diagnosis of systolic heart failure ultimately needs SARI and BB back no further diuresis resumed Coreg at lower dose of 6.25mg BID BP is soft, start Lisinopril at 5mg daily (5) Acute respiratory failure with hypoxia: resolved 2nd pneumonia and volume overload (from acute hepatitis as well as systolic CHF) cxr 05/17 with overall improved infiltrates completed 7-day course rocephin received several days of diuresis - now resolved (6) Tobacco use disorder: nicoderm patch daily (7) Alcohol withdrawal: received IV ativan while in ICU. the ativan was stopped due to excess sedation in setting of copious use. he again did not tolerate IV ativan on 05/17 for apparent withdrawal symptoms. he received Ativan 1mg IV for MRI 05/23, he woke up clear after it was used will use Ativan 0.5mg q6 PRN for agitation, trying to get out of bed much calmer today (8) Depression: needs Rx once mentation improved and able to take meds would involve psych later this stay (9) Alcohol dependence: states she wants rehab for patient post-d/c cont high-dose thiamine, folic acid was drinking 30 beers/day pre-hospitalization (10) Hypokalemia: 3.9 today (11) Hypomagnesemia: resolved (12) Dysphagia: speech saw again, recommend pureed diet has delayed retropulsion of food to back of throat so no foods that need to be chewed CT head w/o stroke on 2 occasions MRI brain without stroke, done on 05/23 dysphagia could be from severe encephalopathy leading to poor swallow function perhaps critical illness myopathy contributing as well? (13) Muscle weakness: severe weakness on exam it is symmetric in all limbs CPK wnl critical illness myopathy? PT, OT when able (14) Systolic CHF: acute/chronic ef 40-45% now euvolemic or even mildly volume contracted no further lasix resume Coreg but at lower dose at 6.25mg BID, lisinopril but at 5mg daily (15) Hypernatremia: improved (16) Acute hyponatremia: resolved (17) DVT prophylaxis: heparin SC cont PT, OT if able to participate slowly starting to improve, prognosis is guarded anticipate discharge later this week, follow up labs in AM, see if his hallucinations improve/resolve with Zyprexa Admission and Anticipated Discharge Date Admission Date: May 11, 2020 Subjective Patient was given a dose of lorazepam last night apparently for some agitated behavior he is now overly sedate today his mom that are visiting them at the bedside given his degree of lethargy and obtundation would not be useful have a neurology evaluation given he cannot interact meaningfully. Review of Systems Review of Systems: Of systems are difficult as the patient is currently having sedated does respond to voice and tactile stimulation but falls back to sleep easily Physical Exam Physical Exam: The patient appeared chronically ill and much older than his stated age he is sedated as mentioned above Vital signs as documented. Head exam is normocephalic atraumatic no scleral icterus Neck is with JVD, thyromegaly, or carotid bruits. Lungs are clear but with diminished effort Cardiac exam, Rhythm is regular.. No murmurs, rubs or gallops. Abdominal exam reveals normal bowel sounds, soft and distended fluid wave is present Extremities are 1-2+ edematous and both pedal pulses are normal. Neurologic exam is lethargic Skin is with various bruises but no rashes Results & Data Results & Data ([facility]) Vital Signs (Past 12 Hours) Vital Signs Temp Pulse Pulse Resp BP Pulse Ox 05/27/20 16:00 89 05/27/20 15:30 98.2 F 82 16 93/63 L 96 05/27/20 11:15 97.9 F 87 20 93/58 L 94 05/27/20 08:00 77 05/27/20 07:19 98.4 F 80 20 115/77 92 PG Care Time/CCT Total # of Minutes Spent Total Time Spent with Patient: Total time spent is greater than 50% in coordination of care (as documented) at patient's floor/unit and/or counseling patient: Coding Level of Care Code 28371 Subseq Hosp Care Lvl 3 Diagnoses Acute metabolic encephalopathy G93.41 Acute alcoholic hepatitis K70.10 Abdominal pain R10.13 Abdominal location: epigastric Ischemic cardiomyopathy I25.5 Acute respiratory failure with hypoxia J96.01 Tobacco use disorder F17.200 Alcohol withdrawal F10.239 Depression F32.9 Alcohol dependence F10.229 Complication of substance-induced condition: with unspecified complication Substance use status: with intoxication Hypokalemia E87.6 Hypomagnesemia E83.42 Dysphagia R13.10 Dysphagia type: unspecified Muscle weakness M62.81 Systolic CHF I50.20 Hypernatremia E87.0 Acute hyponatremia E87.1 DVT prophylaxis Z29.9 (1) Abdominal pain Abdominal location: epigastric Qualified Code(s): R10.13 - Epigastric pain (2) Alcohol dependence Complication of substance-induced condition: with unspecified complication Substance use status: with intoxication Qualified Code(s): F10.229 - Alcohol dependence with intoxication, unspecified (3) Dysphagia Dysphagia type: unspecified Qualified Code(s): R13.10 - Dysphagia, un specified
[2020-05-28] MEDS: HEPARIN SOD 5,000 UNIT/0.5 ML VIAL SQ SCH ×3 (05:51→20:58)
[2020-05-28 07:34] LABS: Basophils # (auto) 0.01 K/uL (0-0.2); Basophils % (auto) 0.1 %; Hematocrit (blood only) 40.5 % (42-52); Hemoglobin 13.5 g/dL (14.0-18.0); Immature Granulocytes # (auto) 0.22 K/uL (0.00-0.02); Immature Granulocytes % (auto) 1.2 %; Lymphocytes # (auto) 0.87 K/uL (1.2-3.4); Lymphocytes % (auto) 4.8 %; Mean Corpuscular Hemoglobin 37.6 pg (25-34); Mean Corpuscular Hgb Conc 33.3 g/dL (32-36); Mean Corpuscular Volume 112.8 fL (80-100); Mean Platelet Volume 11.5 fL (7.4-10.4); Monocytes # (auto) 1.06 K/uL (0.11-0.59); Monocytes % (auto) 5.8 %; Neutrophils # (auto) 16.08 K/uL (1.4-6.5); Neutrophils % (auto) 88.1 %; Platelet Count 186 K/uL (130-400); RDW Coefficient of Variation 15.9 % (11.5-14.5); RDW Standard Deviation 65.6 fL (36.4-46.3); Red Blood Count 3.59 M/uL (4.7-6.1); White Blood Count 18.24 K/uL (4.8-10.8)
[2020-05-28 08:00] LABS: Macrocytosis Present
[2020-05-28 08:06] LABS: Albumin Globulin Ratio 0.3 (0.9-2); Albumin Level 1.2 gm/dl (3.4-5.0); BUN Creatinine Ratio 35.6 (10-20); Bilirubin,Total 8.6 mg/dl (0.2-1); Creatinine Clr Calc Pharmacy 107.2 ml/min; Est GFR (African American) 114.3; Est GFR (Non-African American) 98.7; Globulin 3.8 gm/dl (2.5-4.0); Potassium 3.6 mmol/L (3.5-5.1)
[2020-05-28] MEDS: FOLIC ACID 1 MG in SYRINGE 9.8 ML IV SCH (08:24)
[2020-05-28] MEDS: NICOTINE 21 MG/24 HR TDSY TD SCH (08:24)
[2020-05-28] MEDS: PANTOprazole 40 MG TAB PO SCH (08:25)
[2020-05-28] MEDS: lisinopriL 5 MG TAB PO SCH (08:25)
[2020-05-28] MEDS: prednisoLONE SYRUP 15 MG/5 ML BTL PO SCH (08:25)
[2020-05-28] MEDS: carvediloL 12.5 MG TAB PO SCH ×3 (08:25→21:04)
[2020-05-28] MEDS: THIAMINE HCL 200 MG in SODIUM CHLORIDE 0.9% 50 ML IV SCH ×2 (08:29→20:58)
--- NOTE | 2020-05-28 13:31 | Hospitalist Progress Note ---
Date of Service May 28, 2020 Assessment & Plan (1) Acute metabolic encephalopathy: Resolving and slowly improving most recently was toxic encephalopathy from lorazepam administration suspect multifactorial in origin. metabolic from infection (pneumonia), acute liver injury, etc. possibly toxic from copious IV ativan (while he was in ICU). CT head 05/11 and 05/17 negative for acute process. remains on high-dose thiamine IV for prevention of Wernicke's encephalopathy. VBGs w/o hypercarbia. TSH, B12 wnl. ammonia wnl. He is now about > 14 days out from his last etoh beverage. 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 Motion degraded exam without acute intracranial abnormality identified, specifically there is no evidence of acute or subacute infarct. No abnormal enhancement. Moderate mastoid effusions. Modest improvement. Patient will need long-term rehabilitation placement (2) Acute alcoholic hepatitis: Cirrhosis on imaging T bili slowly resolving his severe acute liver failure was 2nd to heavy etoh use. INR only mildly affected s/p NAC protocol. Is on steroids for alcoholic hepatitis will need 28 days of IV/PO steroids switched to Prednisolone 40mg PO daily on 05/24 needs two more weeks of steroids last day would be 06/08 Hep c RNa is negative (3) Abdominal pain: improved. with IV PPI and carafate QID. CT abd/pelvis with ?colitis but no other findings. suspicious he has gastritis or PUD. treated with Protonix 40 IV BID, change to Protonix 40mg PO daily recent lipase wnl, c diff negative, stool cx negative minimal ascites on CT - doubt SBP (and he had been on 7 day run of rocephin, too) portal vein dopplers neg for PVT of note - esophageal varices were seen on CT abdomen. (4) Ischemic cardiomyopathy: EF 40-45% on echo this admission - now with diagnosis of systolic heart failure no further diuresis resumed Coreg at lower dose of 6.25mg BID, Lisinopril at 5mg daily (5) Acute respiratory failure with hypoxia: resolved 2nd pneumonia and volume overload (from acute hepatitis as well as systolic CHF) cxr 05/17 with overall improved infiltrates completed 7-day course rocephin received several days of diuresis - now resolved (6) Tobacco use disorder: nicoderm patch daily (7) Alcohol withdrawal: received IV ativan while in ICU. the ativan was stopped due to excess sedation in setting of copious use. he again did not tolerate IV ativan on 05/17 for apparent withdrawal symptoms. 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 was drinking 30 beers/day pre-hospitalization (10) Hypomagnesemia: resolved (11) Dysphagia: speech recommend pureed diet has delayed retropulsion of food to back of throat so no foods that need to be chewed CT head w/o stroke on 2 occasions MRI brain without stroke, done on 05/23 dysphagia could be from severe encephalopathy leading to poor swallow function perhaps critical illness myopathy contributing as well? (12) Muscle weakness: severe weakness on exam it is symmetric in all limbs CPK wnl critical illness myopathy? PT, OT when able (13) Systolic CHF: acute/chronic ef 40-45% now euvolemic or even mildly volume contracted no further lasix resume Coreg but at lower dose at 6.25mg BID, lisinopril but at 5mg daily (14) Hypernatremia: improved (15) Acute hyponatremia: resolved (16) DVT prophylaxis: heparin SC cont PT, OT if able to participate slowly starting to improve, prognosis is guarded Disposition is a challenge is the patient is without resources to procure rehabilitation stay Admission and Anticipated Discharge Date Admission Date: May 11, 2020 Subjective Patient is much more awake and alert today. He is pleasantly confused however he can follow commands and have some conversation. He is oriented to place but not time. He remains significantly jaundiced and deconditioned only able to stand at the bedside during physical therapy evaluation Review of Systems Review of Systems: Moderate distress and moderate fatigue no headache, blurry or double vision no speech or swallowing issues no chest pain, pressure or palpitations Peers have some shortness of breath at rest will perform chest x-ray to determine if pleural effusion or this could be ascites pushing up no abdominal pain, nausea or vomiting, no dysuria, hematuria or frequency no focal joint pain or swelling Does have some bony centralized back pain but no CVA angle tenderness Skin is jaundice with various aged bruising about his extremities no focal signs of weakness or numbness or does not have gross altered sensation no complaints or anxiety or depression. Physical Exam Physical Exam: The patient appeared chronically ill and much older than his stated age he is sedated as mentioned above Vital signs as documented. Head exam is normocephalic atraumatic no scleral icterus Neck is with JVD, thyromegaly, or carotid bruits. Lungs are clear but with diminished effort Cardiac exam, Rhythm is regular.. No murmurs, rubs or gallops. Abdominal exam reveals normal bowel sounds, soft and distended fluid wave is present Extremities are 1-2+ edematous and both pedal pulses are normal. Neurologic exam is lethargic Skin is with various bruises but no rashes Results & Data Results & Data ([facility]) Vital Signs (Past 12 Hours) Vital Signs Temp Pulse Pulse Resp BP BP Pulse Ox 05/28/20 11:03 97.5 F L 86 18 104/67 94 05/28/20 07:10 97.7 F 80 18 100/69 94 05/28/20 07:00 85 05/28/20 04:29 97.7 F 87 20 103/73 92 PG Care Time/CCT Total # of Minutes Spent Total Time Spent with Patient: Total time spent is greater than 50% in c oordination of care (as documented) at patient's floor/unit and/or counseling patient: Coding Level of Care Code 53797 Subseq Hosp Care Lvl 2 Diagnoses Acute metabolic encephalopathy G93.41 Acute alcoholic hepatitis K70.10 Abdominal pain R10.13 Abdominal location: epigastric Ischemic cardiomyopathy I25.5 Acute respiratory failure with hypoxia J96.01 Tobacco use disorder F17.200 Alcohol withdrawal F10.239 Depression F32.9 Alcohol dependence F10.229 Complication of substance-induced condition: with unspecified complication Substance use status: with intoxication Hypomagnesemia E83.42 Dysphagia R13.10 Dysphagia type: unspecified Muscle weakness M62.81 Systolic CHF I50.20 Hypernatremia E87.0 Acute hyponatremia E87.1 DVT prophylaxis Z29.9 (1) Abdominal pain Abdominal location: epigastric Qualified Code(s): R10.13 - Epigastric pain (2) Alcohol dependence Complication of substance-induced condition: with unspecified complication Substance use status: with intoxication Qualified Code(s): F10.229 - Alcohol dependence with intoxication, unspecified (3) Dysphagia Dysphagia type: unspecified Qualified Code(s): R13.10 - Dysphagia, unspecified
[2020-05-29] MEDS: HEPARIN SOD 5,000 UNIT/0.5 ML VIAL SQ SCH ×3 (05:31→21:09)
[2020-05-29] MEDS: prednisoLONE SYRUP 15 MG/5 ML BTL PO SCH (07:52)
[2020-05-29] MEDS: THIAMINE HCL 200 MG in SODIUM CHLORIDE 0.9% 50 ML IV SCH ×2 (07:52→21:11)
[2020-05-29] MEDS: FOLIC ACID 1 MG in SYRINGE 9.8 ML IV SCH (07:52)
[2020-05-29] MEDS: NICOTINE 21 MG/24 HR TDSY TD SCH (07:53)
[2020-05-29] MEDS: PANTOprazole 40 MG TAB PO SCH (07:53)
[2020-05-29] MEDS: carvediloL 12.5 MG TAB PO SCH ×2 (07:57→21:09)
[2020-05-29] MEDS: lisinopriL 5 MG TAB PO SCH (07:57)
[2020-05-29] MEDS ORDERED: KETOROLAC 30 MG/ML VIAL IV ONE (13:42)
--- NOTE | 2020-05-29 17:40 | Hospitalist Progress Note ---
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 remains on high-dose thiamine IV for prevention of Wernicke's encephalopathy. VBGs w/o hypercarbia. TSH, B12 wnl. ammonia wnl. He is now about > 14 days out from his last etoh beverage. 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 Motion degraded exam without acute intracranial abnormality identified, specifically there is no evidence of acute or subacute infarct. No abnormal enhancement. Moderate mastoid effusions. Modest improvement. Patient will need long-term rehabilitation placement, insurance does limit options (2) Acute alcoholic hepatitis: Cirrhosis on imaging T bili slowly resolving his severe acute liver failure was 2nd to heavy etoh use. INR only mildly affected, does not have ammonia elevation s/p NAC protocol. Is on steroids for alcoholic hepatitis will need 28 days of IV/PO steroids switched to Prednisolone 40mg PO daily on 05/24 needs two more weeks of steroids last day would be 06/08 Hep c RNa is negative (3) Abdominal pain: resolved . with IV PPI and carafate QID. change to Protonix 40mg PO daily CT abd/pelvis with ?colitis but no other findings. recent lipase wnl, c diff negative, stool cx negative minimal ascites on CT - doubt SBP (and he had been on 7 day run of rocephin, too) portal vein dopplers neg for PVT of note - esophageal varices were seen on CT abdomen. (4) Ischemic cardiomyopathy: EF 40-45% on echo this admission - now with diagnosis of systolic heart failure no further diuresis resumed Coreg at lower dose of 6.25mg BID, Lisinopril at 5mg daily (5) Acute respiratory failure with hypoxia: resolved 2nd pneumonia and volume overload (from acute hepatitis as well as systolic CHF) cxr 05/17 with overall improved infiltrates completed 7-day course rocephin received several days of diuresis - now resolved (6) Tobacco use disorder: nicoderm patch daily (7) Alcohol withdrawal: received IV ativan while in ICU. the ativan was stopped due to excess sedation in setting of copious use. he again did not tolerate IV ativan on 05/17 for apparent withdrawal symptoms. 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 was drinking 30 beers/day pre-hospitalization (10) Hypomagnesemia: resolved (11) Dysphagia: speech recommend pureed diet as mental status has improved so has his po intake CT head w/o stroke on 2 occasions MRI brain without stroke, done on 05/23 (12) Muscle weakness: likely from his significant illness, continue PT/OT (13) Systolic CHF: acute/chronic ef 40-45% now euvolemic or even mildly volume contracted no further lasix resume Coreg but at lower dose at 6.25mg BID, lisinopril but at 5mg daily (14) Hypernatremia: improved (15) Acute hyponatremia: resolved (16) DVT prophylaxis: heparin SC cont PT, OT if able to participate slowly starting to improve, prognosis is guarded Disposition is a challenge is the patient is without resources to procure rehabilitation stay Admission and Anticipated Discharge Date Admission Date: May 11, 2020 Subjective Patient continues to inprove with his alertness and his orientation. He is oriented x 3 today and his mother is at the bedside. He remains significantly jaundiced and deconditioned only able to stand at the bedside during physical therapy evaluation Review of Systems Review of Systems: Moderate distress and moderate fatigue no headache, blurry or double vision no speech or swallowing issues no chest pain, pressure or palpitations seems to have less shortness of breath, no other focal complaints no abdominal pain, nausea or vomiting, no dysuria, hematuria or frequency no focal joint pain or swelling Does have some bony centralized back pain but no CVA angle tenderness Skin is jaundice with various aged bruising about his extremities no focal signs of weakness or numbness or does not have gross altered sensation no complaints or anxiety or depression. Physical Exam Physical Exam: The patient appeared chronically ill and much older than his stated age he is sedated as mentioned above Vital signs as documented. Head exam is normocephalic atraumatic no scleral icterus Neck is with JVD, thyromegaly, or carotid bruits. Lungs are clear but with diminished at the base Cardiac exam, Rhythm is regular.. No murmurs, rubs or gallops. Abdominal exam reveals normal bowel sounds, soft and distended fluid wave is present Extremities are 1-2+ edematous and both pedal pulses are normal. Neurologic exam is lethargic Skin is with various bruises but no rashes Results & Data Results & Data ([facility]) Vital Signs (Past 12 Hours) Vital Signs Temp Pulse Resp BP BP Pulse Ox 05/29/20 14:52 98.4 F 74 18 92/60 L 97 05/29/20 11:57 97.0 F L 83 16 93/65 L 95 05/29/20 07:54 97.9 F 94 H 22 106/73 95 PG Care Time/CCT Total # of Minutes Spent Total Time Spent with Patient: Total time spent is greater than 50% in coordination of care (as documented) at patient's floor/unit and/or counseling patient: Coding Level of Care Code 42934 Subseq Hosp Care Lvl 3 Diagnoses Acute metabolic encephalopathy G93.41 Acute alcoholic hepatitis K70.10 Abdominal pain R10.13 Abdominal location: epigastric Ischemic cardiomyopathy I25.5 Acute respiratory failure with hypoxia J96.01 Tobacco use disorder F17.200 Alcohol withdrawal F10.239 Depression F32.9 Alcohol dependence F10.229 Complication of substance-induced condition: with unspecified complication Substance use status: with intoxication Hypomagnesemia E83.42 Dysphagia R13.10 Dysphagia type: unspecified Muscle weakness M62.81 Systolic CHF I50.20 Hypernatremia E87.0 Acute hyponatremia E87.1 DVT prophylaxis Z29.9 (1) Abdominal pain Abdominal location: epigastric Qualified Code(s): R10.13 - Epigastric pain (2) Alcohol dependence Complication of substance-induced condition: with unspecified complication Substance use status: with intoxication Qualified Code(s): F10.229 - Alcohol dependence with intoxication, unspecified (3) Dysphagia Dysphagia type: unspecified Qualified Code(s): R13.10 - Dysphagia, unspecified
[2020-05-30] MEDS: LORazepam 0.5 MG/1 ML VIAL IV PRN (00:29)
[2020-05-30] MEDS ORDERED: LORazepam 2 MG/4 ML VIAL IV STA (02:25)
[2020-05-30] MEDS ORDERED: SODIUM CHLORIDE 0.9% 1000ML 500 ML IV ONE ×2 (03:16→04:28)
[2020-05-30 03:44] LABS: Base Excess ABG -6.7 mEq/L (-9-1.8); HCO3 ABG 14 mmol/L (19-24); Oxygen Saturation ABG 97.1 % (90-95); PCO2 ABG 18 mmHg (35-46); PO2 ABG 83 mmHg (80-95); pH ABG 7.48 (7.35-7.45)
[2020-05-30 03:45] LABS: Allen Test Pos (Pos)
[2020-05-30 03:52] LABS: Hematocrit (blood only) 48.8 % (42-52); Mean Corpuscular Hemoglobin 38.8 pg (25-34); Mean Corpuscular Hgb Conc 34.8 g/dL (32-36); Mean Corpuscular Volume 111.4 fL (80-100); Mean Platelet Volume 11.9 fL (7.4-10.4); Platelet Count 305 K/uL (130-400); RDW Coefficient of Variation 15.5 % (11.5-14.5); RDW Standard Deviation 62.8 fL (36.4-46.3); Red Blood Count 4.38 M/uL (4.7-6.1); White Blood Count 14.48 K/uL (4.8-10.8)
[2020-05-30 04:01] LABS: Basophils # (auto) 0.02 K/uL (0-0.2); Basophils % (auto) 0.1 %; Echinocytes 1+; Eosinophils # (auto) 0.37 K/uL (0-0.5); Eosinophils % (auto) 2.6 %; Immature Granulocytes # (auto) 0.19 K/uL (0.00-0.02); Immature Granulocytes % (auto) 1.3 %; Lymphocytes # (auto) 0.51 K/uL (1.2-3.4); Lymphocytes % (auto) 3.5 %; Macrocytosis Present; Monocytes # (auto) 0.59 K/uL (0.11-0.59); Monocytes % (auto) 4.1 %; Neutrophils % (auto) 88.4 %
[2020-05-30] MEDS ORDERED: STAT IV Infusion **Titration per Protocol STA ×5 (04:01→17:30)
[2020-05-30] MEDS ORDERED: ALBUMIN 5% 250 ML IV STA (04:06)
[2020-05-30] MEDS ORDERED: PHENYLEPHRINE HCL 20 MG in DEXTROSE 5% 500 ML IV SCH (04:15)
[2020-05-30] MEDS ORDERED: ICU PROTOCOL FOR HYPERGLYCEMIA PRN (04:17)
[2020-05-30] MEDS ORDERED: GLUCOSE 40% GEL 15 GM TUBE PO PRN (04:18)
[2020-05-30] MEDS ORDERED: CARBOHYDRATES FOR HYPOGLYCEMIA PO PRN (04:18)
[2020-05-30] MEDS ORDERED: DEXTROSE 50% 50 ML SYRINGE IV PRN (04:18)
[2020-05-30] MEDS ORDERED: GLUCAGON FOR INJ 1 MG VIAL SQ PRN (04:18)
[2020-05-30] MEDS ORDERED: GLUCOSE 10 TABS/TUBE PO PRN (04:18)
[2020-05-30 04:19] LABS: Albumin Globulin Ratio 0.3 (0.9-2); Albumin Level 1.2 gm/dl (3.4-5.0); BUN Creatinine Ratio 26.3 (10-20); Bilirubin,Total 8.6 mg/dl (0.2-1); Calcium 7.9 mg/dl (8.5-10.1); Creatinine Clr Calc Pharmacy 63.2 ml/min; Est GFR (African American) 64.2; Est GFR (Non-African American) 55.4; Total Protein 5.2 gm/dl (6.4-8.2)
[2020-05-30 04:23] LABS: Troponin I 0.058 ng/ml (0-0.045)
[2020-05-30] MEDS ORDERED: VANCOMYCIN CONSULT ACTIVE PRN (04:26)
[2020-05-30] MEDS ORDERED: PIPERACILL/TAZOBAC CONSULT ACTIVE PRN ×2 (04:26)
--- NOTE | 2020-05-30 04:26 | Critical Care Progress Note ---
Date of Service May 30, 2020 Assessment & Plan (1) Septic shock: Reason Critically Ill: 59-year-old male readmitted to ICU as transfer from floor after being found tachypneic, hypotensive, and tachycardic. Currently being treated for septic shock and requiring vasopressor support. Neuro - AMS: Suspicious for Warnicke's versus acute metabolic encephalopathy -Patient's current mental status is consistent with prior examinations on this hospitalization -MRI was unremarkable -Ammonia less than 10 -Continue high-dose thiamine Cardiac - Shocklikely septic as patient now presents with elevated lactate and pro Satnam, and is febrilesee management below -Echo with EF 45 to 50%, EKG obtained and unremarkable -Troponin 0.05, will trend for now -Random cortisol pending -Arterial line and CVC inserted -Titrate Levophed drip for maps greater than 65 -Holding hypertension medicine Respiratory - Tachypnealikely compensatory for metabolic acidosis as patient is alkalotic with CO2 of 18 -We will monitor closely as patient is high risk for requiring intubation if he is unable to meet demand -PO2 is within normal limits, currently on room air -Chest x-ray appears improved from prior study -Continuous monitoring on pulse ox GI - Cirrhosis/acute alcoholic hepatitisunderwent treatment with N-acetylcysteine -There is up trend in LFTs likely secondary to hypotension, will trend for now -Ascites appears to have worsened and now presents with abdominal tenderness, consider SBP on septic work-up -CT abdomen without significant change from prior study -N.p.o. for now -Continue thiamine, folate, multivitamin -Continue steroid regimen RENAL/LYTES - Mild elevation in creatinine likely represents NUBIA following hypotension, however patient does appear to be dehydrated on exam -Resuscitated with 1.5 L crystalloid bolus and 250 5% albumin -We will continue to monitor with routine BMPs and trend creatinine -Continue NSS 80 mL/h -Avoid nephrotoxins and renally adjust medications -Monitor strict I's and O's - Indwelling Foleyexchanged for concern for urosepsis and UA pending -Monitoring strict I's and O's ENDO - No history diabetes or thyroid disease Patient did present with hypoglycemia with glucose 53 on arrival to the ICU, hypoglycemic protocol HEME - H&H stable, monitor ID - Sepsis?Current presentation consistent with infectious process/septic shock -Lactate 3.8, trending; pro Satnam 10; fever 38.2 C -Patient was treated previously for potential pneumonia and underwent complete course of ceftriaxone -Started on vancomycin and Zosyn for now -Blood cultures pending, UA pending -Could consider SBP if unable to pinpoint clear source? LINES/IV ACCESS - Right IJ CVC, A-line, PIV DVT PROPHYLAXIS - SCDs, heparin I have personally spent 60 minutes of critical care time in the direct management of this patient. This is a life/limb threatening event. This includes time spent evaluating patient, direct bedside care, chart review, placing orders, interpretation of diagnostic studies, discussion with consultants, patient, and family members, as well as other required patient management activities. This time is exclusive of all separately billable procedures, and teaching time and separate from and in addition to any other critical care service time. Thank you for allowing us to participate in the care of this patient. Please refer to my attending physician's documentation for any further recommendations. (2) Systolic CHF: (3) Abdominal pain: (4) Tachypnea: (5) Sepsis: (6) Admitted to intensive care unit: (7) AMS (altered mental status): (8) Liver cirrhosis: (9) Pneumonia: (10) Acute metabolic encephalopathy: (11) Acute dyspnea: (12) Alcohol abuse: (13) Jaundice: (14) Acute alcoholic hepatitis: Admission and Anticipated Discharge Date Admission Date: May 11, 2020 Subjective Initially admitted with acute alcoholic hepatitis Mr. Pinzon is a 59-year-old male who was initially admitted with acute alcoholic hepatitis, acute alcohol withdrawal, and underwent treatment for pneumonia. Was temporarily admitted to ICU and was on vasopressors but was downgraded from ICU status last week. Overnight the patient became increasingly hypotensive, tachypneic, tachycardic and was transferred to the ICU. He was complaining of generalized abdominal pain and was sent for CT abdomen which was consistent with prior studies with notable increased peritoneal fluid. Patient was started on Levophed drip on arrival to the ICU and arterial line and central line were inserted. Patient has elevated lactate and pro Satanm and was found to be febrile on arrival. Blood cultures were obtained and he is started on broad- spectrum antibiotics. Patient has been confused since admission but is alert to self and able to answer simple questions. He currently denies headache, syncope, dizziness, sore throat, nausea or vomiting. He does report chest pain and EKG obtained but unremarkable. He also reports shortness of breath and generalized abdominal pain. Patient to remain in ICU for further management at this time. Review of Systems Review of Systems: All systems reviewed & are unremarkable except as noted in HPI & below Physical Exam Constitutional: + acute distress and + altered mental status; + uncomfortable Eyes: PERRL, conjunctivae normal, anicteric sclerae ENMT: external ear and nose normal, oropharynx normal Neck: trachea midline, no thyromegaly Respiratory: Auscultation: no crackles and no wheezes Tachypnea, rhonchi auscultated bilaterally in all lung field Cardiovascular: Bilateral lower extremity edema, tachycardia, regular rate, S1-S2, no JVD Gastrointestinal (Abdomen): Abdomen semifirm, distended, tender in all 4 quadrants with palpation, bowel sounds auscultated all 4 quadrants Musculoskeletal: no cyanosis or clubbing, extremities motor strength 5/5 Skin: no rashes, warm and dry Neurologic: PERRL, EOMI, accommodation nl, no face palsy, no dysarthria Psychiatric: Orientation: oriented to person; + not oriented to place and + not oriented to time Genitourinary: Indwelling Smallwood catheter present, urine dark and concentrated Results & Data Results & Data ([facility]) Vital Signs (Past 12 Hours) Vital Signs Temp Pulse Pulse Resp BP BP Pulse Ox 05/29/20 23:11 36.5 C 69 20 125/86 95 05/29/20 22:20 80 05/29/20 18:52 36.6 C 64 19 106/66 96 Coding Level of Care Code Critical Care 1st 30-74 mins Diagnoses Septic shock A41.9; R65.21 Systolic CHF I50.20 Abdominal pain R10.13 Abdominal location: epigastric Tachypnea R06.82 Sepsis A41.9 Admitted to intensive care unit Z78.9 AMS (altered mental status) R41.82 Liver cirrhosis K74.60 Pneumonia J18.9 Acute metabolic encephalopathy G93.41 Acute dyspnea R06.00 Alcohol abuse F10.10 Jaundice R17 Acute alcoholic hepatitis K70.10 (1) Abdominal pain Abdominal location: epigastric Qualified Code(s): R10.13 - Epigastric pain
[2020-05-30] MEDS ORDERED: SODIUM CHLORIDE 0.9% 1000ML 1,000 ML IV ONE (04:29)
[2020-05-30] MEDS ORDERED: IOVERSOL 100ml IV ONE (04:30)
[2020-05-30] MEDS ORDERED: PIPERACILLIN/TAZOBACTAM 4.5 GM in DEXTROSE 5% 100 ML IV ONE (04:45)
[2020-05-30] MEDS ORDERED: VANCOMYCIN HCL 2,000 MG in SODIUM CHLORIDE 0.9% 500 ML IV ONE (04:45)
[2020-05-30 05:07] LABS: Potassium 4.3 mmol/L (3.5-5.1)
[2020-05-30] MEDS: HEPARIN SOD 5,000 UNIT/0.5 ML VIAL SQ SCH ×2 (05:31→13:59)
[2020-05-30] MEDS: NOREPINEPHRINE BIT INJ 8 MG in DEXTROSE 5% 500 ML IV SCH ×2 (05:38→22:55)
[2020-05-30] MEDS: SODIUM CHLORIDE 0.9% 1000ML 1,000 ML IV SCH ×2 (06:23→17:44)
--- NOTE | 2020-05-30 06:51 | Procedure Note ---
Procedure Note Date of Service May 30, 2020 Note ARTERIAL LINE PROCEDURE NOTE: Procedure: Arterial Line Placement Attending: Dr. Chas Hauser Provider: DENNYS Aguirre Indication: Monitoring on Pressors Anesthesia: Lidocaine 1% Line placed emergently in the setting of septic shock, requiring vasopressor support. A time-out was completed verifying correct patient, procedure, site, positioning, and implant(s) or special equipment if applicable. Allens test was performed to ensure adequate perfusion. Patients left wrist was prepped and draped in the usual sterile fashion. Ultrasound guidance was used to aid needle placement. A 20g Arrow arterial line was introduced into the left radial artery. Catheter was threaded, and the needle was removed with appropriate blood return. Good waveform was observed. The patient tolerated the procedure well. Confirmation of placement with ultrasound. Blood Loss: Minimal Complications: None Procedural Ultrasound Guidance: Procedure Date: 05/30/2020 Indication: Arterial line insertion Attending: Dr. Chas Hauser Provider: DENNYS Aguirre Artery Identified: YES Line confirmed in Artery with ultrasound: Yes Complications: NONE Patient tolerated procedure: WELL Coding CPT Codes Tubes, Drains, and Vasc Access - Tubes, Drains, and Vasc Access: [id number] Place Catheter In Artery ([id number]) Tubes, Drains, and Vasc Access - Tubes, Drains, and Vasc Access: [id number] Ultrasound Guidance For Vascular ([id number]) [facility] [place] [facility] [place] Codes (Charges) Tubes, Drains, and Vasc Access Procedure 1: Tubes, Drains, and Vasc Access: [id number] Place Catheter In Artery Procedure 2: Tubes, Drains, and Vasc Access: [id number] Ultrasound Guidance For Vascular
--- NOTE | 2020-05-30 06:53 | Procedure Note ---
Procedure Note Date of Service May 30, 2020 Note INTERNAL JUGULAR CENTRAL LINE PROCEDURE NOTE: Procedure: Internal Jugular Central Line Placement Attending: Dr. Chas Hauser Provider: DENNYS Aguirre Indication: Central Drug Administration with vasopressors Anesthesia:Lidocaine 1% Line placed emergently as patient with septic shock requiring vasopressor support. A time-out was completed verifying correct patient, procedure, site, positioning, and implants(s) or special equipment if applicable. Patients right neck was cleansed and draped in the typical sterile fashion using Chloraprep. The Internal Jugular Vein and Carotid Artery were identified using ultrasound. The superficial tissue was anesthetized using 3 mL of 1% lidocaine without epinephrine under direct visualization with the ultrasound. After adequate anesthetization was achieved, the Internal Jugular vein was cannulated under direct ultrasound guidance using an introducer needle on a syringe. Good venous blood return was maintained prior to removal of syringe from introducer needle. Using Seldinger Technique, a guide wire was advanced through the introducer needle without resistance. The introducer needle was removed and ultrasound images were obtained of the guide wire within the Internal Jugular Vein and saved to the patients medical record. A small incision was made in penetrating fashion at the guide wire insertion site utilizing an 11 blade scalpel. The dilator was advanced to the vessel without resistance. The dilator was exchanged for the triple lumen catheter which was advanced into the vessel without resistance. The guide wire was removed intact from the catheter without issue. Claves were placed on each catheter tip with confirmation of good blood flow from each lumen. Each port was easily flushed with sterile saline. The catheter was placed at 16 cm and sut[address] in place. BioPatch was applied to the catheter and a sterile Tegaderm dressing was applied over the catheter with careful attention to sterility. Patient tolerated procedure well. No immediate complications were met. Post procedure x-ray was completed, placement was appropriate and no pneumothorax was noted. Images obtained are saved for permanent record Procedural Ultrasound Guidance: Procedure Date: 05/30/2020 Indication: Central line insertion Attending: Dr. Chas Hauser Provider: DENNYS Aguirre Artery AND Vein visualized: Yes Compressible Vein: Yes Guidewire or Short Catheter seen in vein prior to dilation: Yes Line confirmed in Vein with ultrasound: Yes Images obtained are saved for permanent record. Coding CPT Codes Tubes, Drains, and Vasc Access - Tubes, Drains, and Vasc Access: [id number] Place catheter in vein superior or inferior vena cava ([id number]) Tubes, Drains, and Vasc Access - Tubes, Drains, and Vasc Access: [id number] Ultrasound Guidance For Vascular ([id number]) [facility] [place] Procedure Codes (Charges) Tubes, Drains, and Vasc Access Procedure 1: Tubes, Drains, and Vasc Access: [id number] Place catheter in vein superior or inferior vena cava Procedure 2: Tubes, Drains, and Vasc Access: [id number] Ultrasound Guidance For Vascular
--- NOTE | 2020-05-30 06:58 | XRay Report ---
XR chest 1V portable HISTORY: 59 years-old Male Line placement status post placement of a right IJ central venous cathete r COMPARISON: Chest radiograph 05/30/2020 2:59 AM, CT abdomen and pelvis 05/30/2020 TECHNIQUE: Portable AP view of the chest FINDINGS: Cardiac silhouette is enlarged. Trace pleural effusions. Hypoinflation with pulmonary vascular conges tion and bronchovascular crowding. Mild diffuse interstitial coarsening. Right IJ central venous cath eter distal tip terminates within the region of the superior cavoatrial junction. No postprocedural p neumothorax. Degenerative changes of the shoulders and spine. IMPRESSION: 1. Cardiomegaly and pulmonary vascular congestion with interstitial coarsening suggestive of pulmonar y edema versus infectious or inflammatory pneumonitis. 2. Trace pleural effusions. 3. Right IJ central venous catheter distal tip terminates in the region of the superior cavoatrial ju nction. No postprocedural pneumothorax. ACT 112: Negative or not required by law. The above report was generated using voice recognition software. It may contain grammatical, syntax o r spelling errors. Electronically signed by: Vick Patel M.D. 05/30/2020 6:57 AM
[2020-05-30 07:11] LABS: INR 1.4 (0.9-1.1)
[2020-05-30] MEDS: VASOPRESSIN 20 UNITS in 0.9 % SODIUM CHLORIDE 100 ML IV SCH ×3 (07:31→22:55)
--- NOTE | 2020-05-30 07:31 | Hospitalist Progress Note ---
Date of Service May 30, 2020 Assessment & Plan (1) Rupture of bowel: Patient acutely decompensated in the director microbiology hours of 05/30 he was sent to the ICU with a fever hypotension and required pressor support. CT scan of the abdomen pelvis shows free air with concern for ruptured bowel. Surgery discussed this with the family and decided to pursue surgical intervention here at [facility]. 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 remains on high-dose thiamine IV for prevention of Wernicke's encephalopathy. VBGs w/o hypercarbia. TSH, B12 wnl. ammonia wnl. 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 Is on steroids for alcoholic hepatitis will need 28 days of IV/PO steroids switched to Prednisolone 40mg PO daily on 05/24 likely will be on stress steroids post op Hep c RNa is negative (4) Abdominal pain: now with perforated bowel, source unclear. recent lipase wnl, c diff negative, stool cx negative minimal ascites on CT - doubt SBP (and he had been on 7 day run of rocephin, too) portal vein dopplers neg for PVT of note - esophageal varices were seen on CT abdomen. pt has stable hgb at this point (5) Ischemic cardiomyopathy: EF 40-45% on echo this admission - now with diagnosis of systolic heart failure holding coreg and lisinopril with lower blood pressure (6) Systolic CHF: acute/chronic ef 40-45% (7) Acute respiratory failure with hypoxia: now with respiratory distress from metabolic acidosis and sepsis 2nd pneumonia and volume overload (from acute hepatitis as well as systolic CHF) cxr 05/17 with overall improved infiltrates completed 7-day course rocephin (8) Alcohol withdrawal: received IV ativan while in ICU. the ativan was stopped due to excess sedation in setting of copious use. (9) Alcohol dependence: states she wants rehab for patient post-d/c cont high-dose thiamine, folic acid, concern for Korsakoffs syndrome was drinking 30 beers/day pre-hospitalization (10) Dysphagia: speech recommend pureed diet as mental status has improved so has his po intake CT head w/o stroke on 2 occasions MRI brain without stroke, done on 05/23 (11) Muscle weakness: likely from his significant illness, continue PT/OT (12) DVT prophylaxis: heparin SC cont PT, OT if able to participate slowly starting to improve, prognosis is guarded Disposition is a challenge is the patient is without resources to procure rehabilitation stay (13) Tobacco use disorder: nicoderm patch daily (14) Depression: needs Rx once mentation improved Admission and Anticipated Discharge Date Admission Date: May 11, 2020 Subjective pt acutely decompensated sometime director microbiology today, became hypotensive, tachypneic and febrile, initially has no identifyable pneumonia but does have an elevated procalcitonin is on Zosyn, ICU team is managing. INitial blood gas shows a respiratory alkalosis Review of Systems Review of Systems: Moderate distress and moderate fatigue no headache, blurry or double vision no speech or swallowing issues no chest pain, pressure or palpitations tachypnea and shortness of breath abdominal pain and distension, markedly uncomfortable no dysuria, hematuria or frequency no focal joint pain or swelling Skin is jaundice with various aged bruising about his extremities no focal signs of weakness or numbness or does not have gross altered sensation no complaints or anxiety or depression. Physical Exam Physical Exam: The patient appeared seriously ill Vital signs as documented. Head exam is normocephalic atraumatic no scleral icterus Neck is with JVD, thyromegaly, or carotid bruits. Lungs are clear but with diminished at the base Cardiac exam, Rhythm is regular.. No murmurs, rubs or gallops. Abdominal exam reveals normal bowel sounds, soft and distended fluid wave is present Extremities are 1-2+ edematous and both pedal pulses are normal. Neurologic exam is lethargic Skin is with various bruises but no rashes Results & Data Results & Data ([facility]) Vital Signs (Past 12 Hours) Vital Signs Temp Pulse Pulse Resp BP BP Pulse Ox 05/30/20 06:45 100.6 F H 124 H 19 94 05/30/20 06:37 100.6 F H 101 H 40 H 88/46 L 100 05/30/20 06:30 100.6 F H 102 H 43 H 98 05/30/20 06:21 100.8 F H 102 H 18 109/65 95 05/30/20 06:15 100.8 F H 105 H 46 H 95 05/30/20 06:06 100.8 F H 102 H 30 H 90/54 L 93 05/30/20 06:00 100.8 F H 100 H 24 95 05/30/20 05:53 100.8 F H 101 H 35 H 95 05/30/20 05:52 100.8 F H 100 H 43 H 79/54 L 95 05/30/20 05:45 100.6 F H 100 H 45 H 97 05/30/20 05:30 100.8 F H 98 H 42 H 98 05/30/20 05:16 102 H 05/30/20 05:15 101.1 F H 100 H 37 H 95 05/30/20 05:09 101.3 F H 106 H 28 H 05/30/20 05:08 101.3 F H 106 H 39 H 66/46 L 95 05/30/20 05:00 101.5 F H 106 H 23 05/30/20 04:58 119 H 85/46 L 92 05/30/20 04:48 103 H 41 H 65/47 L 95 05/30/20 04:45 95 H 19 96 05/30/20 04:38 99 H 31 H 81/44 L 05/30/20 04:30 100 H 36 H 95 05/30/20 04:28 96 H 22 65/44 L 92 05/29/20 23:11 97.7 F 69 20 125/86 95 05/29/20 22:20 80 PG Care Time/CCT Total # of Minutes Spent Total Time Spent with Patient: Total time spent is greater than 50% in coordina tion of care (as documented) at patient's floor/unit and/or counseling patient: Coding Level of Care Code 95225 Subseq Hosp Care Lvl 3 Diagnoses Rupture of bowel K63.1 Acute metabolic encephalopathy G93.41 Acute alcoholic hepatitis K70.10 Abdominal pain R10.13 Abdominal location: epigastric Ischemic cardiomyopathy I25.5 Systolic CHF I50.20 Acute respiratory failure with hypoxia J96.01 Alcohol withdrawal F10.239 Alcohol dependence F10.229 Complication of substance-induced condition: with unspecified complication Substance use status: with intoxication Dysphagia R13.10 Dysphagia type: unspecified Muscle weakness M62.81 DVT prophylaxis Z29.9 Tobacco use disorder F17.200 Depression F32.9 (1) Alcohol dependence Complication of substance-induced condition: with unspecified complication Substance use status: with intoxication Qualified Code(s): F10.229 - Alcohol dependence with intoxication, unspecified (2) Dysphagia Dysphagia type: unspecified Qualified Code(s): R13.10 - Dysphagia, unspecified (3) Abdominal pain Abdominal location: epigastric Qualified Code(s): R10.13 - Epigastric pain
[2020-05-30] MEDS: NICOTINE 21 MG/24 HR TDSY TD SCH (07:36)
[2020-05-30] MEDS: FOLIC ACID 1 MG in SYRINGE 9.8 ML IV SCH (07:37)
[2020-05-30] MEDS: THIAMINE HCL 200 MG in SODIUM CHLORIDE 0.9% 50 ML IV SCH ×2 (07:38→20:44)
[2020-05-30 08:19] LABS: Mixed Venous Blood Gas Base Excess -6.7 mEq/L (-7.7-1.9); Mixed Venous Blood Gas HCO3 17 mmol/L (19-24); Mixed Venous Blood Gas PCO2 29 mmHg (38-50); Mixed Venous Blood Gas PO2 36 mmHg (80-95); Mixed Venous Blood Gas pH 7.39 (7.35-7.45)
[2020-05-30 08:20] LABS: Mixed Venous Blood Gas O2 Sat < 60.0 % (68)
--- NOTE | 2020-05-30 08:54 | CT Scan Report ---
CT SCAN OF THE ABDOMEN AND PELVIS WITH IV CONTRAST CLINICAL HISTORY: Generalized abdominal pain. Hypotension. COMPARISON STUDY: Abdominal CT dated 05/18/2020. TECHNIQUE: Following the IV administration of 93 cc of Optiray 320, CT scan of the abdomen and pelvi s is performed from the lung bases to the proximal femora. Images are reviewed in the axial, sagittal , and coronal planes. IV contrast was administered without complication. A dose lowering technique wa s utilized adhering to the principles of ALARA. The examination is modestly degraded by motion artifa ct. CT DOSE: 1403.28 mGy.cm FINDINGS: Lung bases: The heart is normal in size and without pericardial effusion. There are trace pleural eff usions with dependent atelectasis. Patchy groundglass consolidation is identified in the right middle lobe. Liver: The contrast-enhanced liver is enlarged, measuring 20.2 cm in length. The liver is cirrhotic i n morphology and heterogeneous in attenuation. There is nodularity of the hepatic surface contour. Th ere is no intrahepatic biliary ductal dilatation. The hepatic veins and portal veins are patent. Gallbladder: The gallbladder is decompressed. Gallbladder wall thickening is nonspecific and likely r elated to cirrhosis and ascites. Spleen: Normal in size and attenuation. Pancreas: Moderately atrophic and grossly unremarkable. Adrenal glands: The adrenal glands appear hyperemic. Kidneys: The contrast enhanced kidneys demonstrate cortical atrophy and are without hydronephrosis. T he kidneys enhance symmetrically. Abdominal vasculature: The abdominal aorta is normal in course and caliber noting moderate to advance d atherosclerotic calcification. Bowel: There is mild diffuse wall thickening and hyperemia of the small bowel loops. This is most [place] arent in loops of jejunum in the left upper quadrant on image #[id number]. There is no pneumatosis intestina lis or portal venous gas. No bowel obstruction is seen. There is mild colonic diverticulosis without CT evidence of acute diverticulitis. The appendix is well-visualized and normal. Peritoneum: There are numerous small foci of intraperitoneal free air in the abdomen. There is a smal l to moderate volume of abdominopelvic ascites. Lymphadenopathy: None. Pelvic viscera: The bladder is decompressed around a Smallwood catheter. Foci of intraluminal gas are lik leti related to instrumentation. The prostate gland is diminutive versus surgically absent. The semina l vesicles are normal as imaged. Skeletal structures: There is mild to moderate lumbosacral spondylosis and scoliosis. No lytic or juan alberto stic lesions are seen. There is evidence of avascular necrosis of the left femoral head. IMPRESSION: 1. Numerous foci of intraperitoneal free air are seen in the abdomen. Menisci concerning for visceral perforation. The site of perforation cannot be delineated. Surgical consultation is advised. 2. Patchy groundglass consolidation is identified in the right middle lobe. Correlate clinically for evidence of an infectious/inflammatory pneumonitis. 3. Mild cardiac enlargement and trace pleural effusions. 4. The liver is enlarged, cirrhotic in morphology, and heterogeneous in attenuation. 5. There is a small to moderate volume of abdominopelvic ascites. This has increased from 05/18/2020. 6. There is diffuse wall thickening and hyperemia of the small bowel loops, possibly related to hypot ension/hyperproteinemia. There is no pneumatosis intestinalis or portal venous gas. Clinical correlat ion will be essential. 7. The adrenal glands appear hyperemic which can also be seen in the setting of hypotension/shock. 8. Gallbladder wall thickening is nonspecific and likely related to cirrhosis and ascites. 9. Avascular necrosis of the left femoral head. 10. Additional findings as above. ACT 112: Negative or not required by law. Electronically signed by: Rusty Francois M.D. 05/30/2020 8:53 AM
[2020-05-30] MEDS ORDERED: prednisoLONE SYRUP 15 MG/5 ML BTL PO SCH ×2 (09:00)
--- NOTE | 2020-05-30 09:29 | XRay Report ---
XR chest 1V portable HISTORY: Congestive heart failure. Low blood pressure. Respiratory distress. COMPARISON: Chest 05/17/2020. FINDINGS: There are low lung volumes. No pneumothorax. No pleural effusions. The heart remains mildly enlarged. There is mild central pulmonary basilar congestion without overt edema. This is similar to the prior study. IMPRESSION: 1. Low lung volumes. 2. Mild cardiomegaly and mild central pulmonary vascular congestion persist. ACT 112: Negative or not required by law. Electronically signed by: Aguila Alamo M.D. 05/30/2020 9:27 AM
[2020-05-30] MEDS: PIPERACILLIN/TAZOBACTAM 4.5 GM in DEXTROSE 5% 100 ML IV SCH ×2 (09:30→17:44)
--- NOTE | 2020-05-30 09:54 | Surgery Consultation ---
Date of Consultation May 30, 2020 Assessment & Plan (1) Pneumoperitoneum: 59 year-old who has been admitted for almost 3 weeks for acute alcoholic hepatitis, cirrhosis, metabolic encephalopathy who decompensated last night becoming hypotensive, tachypneic, and febrile. CT scan showing evidence of foci of pneumoperitoneum concerning for visceral perforation. Examination proves distention with peritonitis. Plan: Dr. Mandujano reviewed patients imaging and examined pt. Given his acute abdomen he will need surgical exploration. She discussed findings of CT scan with patient's Tatiana as well as recommended surgical intervention involving exploratory laparotomy possible bowel resection possible ostomy. Dr. Mandujano discussed option of surgical intervention here vs tertiary center given that he is currently hemodynamically stable. Patient's preferred surgery here. Surgical consent obtained over phone with Tatiana and myself as witness. Patient's understood risks of procedure and possible prolonged/complicated postoperative course given his cirrhosis, metabolic encephalopathy, and current condition. OR contacted to set up ex lap urgently Will return to ICU postop (2) Septic shock: secondary to visceral perforation plan as above (3) Tachypnea: secondary to above (4) Liver cirrhosis: (5) Acute alcoholic hepatitis: (6) Alcohol abuse: Dr. Mandujano has seen and examined patient, please see addendum for further recommendations/plan. Supervising Physician Co-Signing Physician Notes Pt seen and examined with JOSE Franklin. agree with history and physical as above. Options discussed personally with pt's Tatiana via telephone. Consent given for exploratory laparotomy. She understands he is high risk for surgical morbidity or mortality given severity of his underlying medical conditions. For OR as soon as possible. History of Present Illness Reason for Consultation: Pneumoperitoneum Requesting Physician: Myke Soler MD Attending Physician: Tyron Che MD History of Present Illness Lobo is a 59 year-old male who originally presented to hospital on 05/11/2020 due to dyspnea and abdominal pain. He recently lost his job 5 months ago and has been drinking alcohol daily with report of up to 30 beers/day. He was not taking any of his home medications for an entire week prior to his admission and was not eating well. He was found to have evidence of acute alcoholic hepatitis with encephalopathy on presentation with evidence of cirrhosis, portal hypertension, and varices and diffuse colonic wall thickening on CT scan. Most of history obtained through chart as patient confused. He has history of coronary artery disease ,ischemic cardiomyopathy and possible heart attack 3 months ago. Plavix listed as home medication. He has been intermittently in the ICU and medical floor however last evening his condition worsened becoming hypotensive, tachypneic and febrile. He had repeat CT scan of abdomen and pelvis which showed foci of pneumoperitoneum concerning for visceral perforation and our services have been consulted for surgical management. Allergies Allergy/AdvReac Type Severity Reaction Status Date / Time No Known Allergies Allergy Unverified 02/05/20 08:04 Home Medications Home Medications Medication Instructions Recorded Confirmed Type atorvastatin 40 mg tablet 40 mg PO DAILY 04/23/19 02/05/20 History folic acid 400 mcg tablet 0.4 mg PO DAILY tab 04/23/19 02/05/20 History lisinopril 40 mg tablet 40 mg PO DAILY #1 tab 04/23/19 02/05/20 History carvedilol 25 mg tablet 25 mg PO BID #60 tab 05/17/19 02/05/20 Rx W[place]ield-3 1 cap PO DAILY 10/22/19 02/05/20 History ascorbic acid (vitamin C) [Vitamin 1,000 mg PO DAILY 10/22/19 02/05/20 History C] aspirin [Aspir-Low] 81 mg PO DAILY 10/22/19 02/05/20 History coenzyme Q10 [Co Q-10] 200 mg PO DAILY 10/22/19 02/05/20 History glucosamine-chondroitin [Osteo 1 tab PO BID 10/22/19 02/05/20 History Bi-Flex] milk thistle 1,000 mg PO BID 10/22/19 02/05/20 History nitroglycerin [Nitrostat] 0.4 mg SUBLINGUAL UD PRN 10/22/19 02/05/20 History vitamin B complex 1 tab PO DAILY 10/22/19 02/05/20 History meloxicam 15 mg tablet 15 mg PO DAILY #30 tab 11/01/19 02/05/20 Rx lorazepam 1 mg PO Q12H PRN #10 tab 11/22/19 02/05/20 Rx acetaminophen 300 mg-codeine 30 mg 1 tab PO TID PRN #90 tab 02/04/20 02/05/20 Rx tablet clopidogrel 75 mg tablet 75 mg PO DAILY #30 tab 02/04/20 02/05/20 Rx Patient History Medical History Alcohol dependence Alcohol withdrawal C. difficile diarrhea CAD (coronary artery disease) "03/29/2017 - anterior STEMI, s/p JEFFREY to LAD" History of Clostridioides difficile colitis History of GI bleed "secondary to esophageal ulceration on EGD 11/29/2013" HTN (hypertension) Hyperlipidemia LDL goal <70 Ischemic cardiomyopathy "EF 30-35%" Obesity Renal artery stenosis "questionable" Surgical History H/O esophagogastroduodenoscopy "11/29/2013- Large lower esophageal ulceration. No bleeding. Portal hypertensive gastropathy. Erythematous duodenopathy. 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 Beliefs That Will Affect Care: None marital status: Current Living Situation: Spouse Feels Safe at Home: Yes Review of Systems Review of Systems: unable to obtain due to patient confusion Physical Exam Constitutional: + acute distress and + obese; not intoxicated appearing Respiratory: no retractions and does not use accessory muscles tachypneic Cardiovascular: Rate/Rhythm: regular rate and + tachycardic Heart Sounds: normal S1 and normal S2 Gastrointestinal (Abdomen): Inspection/Auscultation: + abdomen distended Percussion/Palpation: + abdomen tender, + guarding and abdomen soft +peritonitis Skin: no rashes, warm and dry Psychiatric: Orientation: alert; + not oriented x 3 Results & Data ([facility]) Vital Signs (Past 12 Hours) Vital Signs Temp Pulse Pulse Resp BP BP Pulse Ox 05/30/20 08:00 38.1 C H 99 H 26 H 99 05/30/20 07:00 38.1 C H 110 H 31 H 96 05/30/20 06:45 38.1 C H 124 H 19 94 05/30/20 06:37 38.1 C H 101 H 40 H 88/46 L 100 05/30/20 06:30 38.1 C H 102 H 43 H 98 05/30/20 06:21 38.2 C H 102 H 18 109/65 05/30/20 06:15 38.2 C H 105 H 46 H 05/30/20 06:06 38.2 C H 102 H 30 H 90/54 L 93 05/30/20 06:00 38.2 C H 100 H 24 05/30/20 05:53 38.2 C H 101 H 35 H 05/30/20 05:52 38.2 C H 100 H 43 H 79/54 L 05/30/20 05:45 38.1 C H 100 H 45 H 97 05/30/20 05:30 38.2 C H 98 H 42 H 98 05/30/20 05:16 102 H 05/30/20 05:15 38.4 C H 100 H 37 H 05/30/20 05:09 38.5 C H 106 H 28 H 05/30/20 05:08 38.5 C H 106 H 39 H 66/46 L 05/30/20 05:00 38.6 C H 106 H 23 05/30/20 04:58 119 H 85/46 L 05/30/20 04:48 103 H 41 H 65/47 L 05/30/20 04:45 95 H 19 96 05/30/20 04:38 99 H 31 H 81/44 L 05/30/20 04:30 100 H 36 H 05/30/20 04:28 96 H 22 65/44 L 05/29/20 23:11 36.5 C 69 20 125/86 05/29/20 22:20 80 Laboratory Results 05/30/20 05/30/20 05/30/20 Range/Units 08:05 06:48 06:48 WBC (4.8-10.8) K/uL RBC (4.7-6.1) M/uL Hgb (14.0-18.0) g/dL Hct (42-52) % MCV (80-100) fL MCH (25-34) pg MCHC (32-36) g/dL RDW Std Deviation (36.4-46.3) fL RDW Coeff of Paradise (11.5-14.5) % Plt Count (130-400) K/uL MPV (7.4-10.4) fL Immature Gran % (Auto) % Neut % (Auto) % Lymph % (Auto) % [place]ombs % (Auto) % Eos % (Auto) % Baso % (Auto) % Neut # (Auto) (1.4-6.5) K/uL Lymph # (Auto) (1.2-3.4) K/uL [place]ombs # (Auto) (0.11-0.59) K/uL Eos # (Auto) (0-0.5) K/uL Baso # (Auto) (0-0.2) K/uL Immature Gran # (Auto) (0.00-0.02) K/uL Macrocytosis Echinocytes PT 15.0 H (9.0-12.0) Seconds INR 1.4 H (0.9-1.1) ABG pH (7.35-7.45) ABG pCO2 (35-46) mmHg ABG pO2 (80-95) mmHg ABG HCO3 (19-24) mmol/L ABG O2 Saturation (90-95) % ABG Base Excess (-9-1.8) mEq/L Oliver Test (Pos) Mixed VBG pH 7.39 (7.35-7.45) Mixed VBG pCO2 29 L (38-50) mmHg Mixed VBG pO2 36 L (80-95) mmHg Mixed VBG HCO3 17 L (19-24) mmol/L Mixed VBG Base Excess -6.7 (-7.7-1.9) mEq/L Mixed VBG O2 Saturation < 60.0 (68) % Barometric Pressure 737.8 mm/Hg Oxygen Given Sodium (136-145) mmol/L Potassium (3.5-5.1) mmol/L Chloride (98-107) mmol/L Carbon Dioxide (21-32) mmol/L Anion Gap (3-11) BUN (7-18) mg/dl Creatinine (0.6-1.4) mg/dl Est Cr Clr Drug Dosing ml/min Est GFR ( Amer) Est GFR (Non-Af Amer) BUN/Creatinine Ratio (10-20) Glucose (70-99) mg/dl POC Glucose (70-99) mg/dl Lactate 3.9 H* (0.4-2.0) mmol/L Calcium (8.5-10.1) mg/dl Total Bilirubin (0.2-1) mg/dl AST (15-37) U/L ALT (12-78) U/L Alkaline Phosphatase (45-117) U/L Ammonia Troponin I (0-0.045) ng/ml Total Protein (6.4-8.2) gm/dl Albumin (3.4-5.0) gm/dl Globulin (2.5-4.0) gm/dl Albumin/Globulin Ratio (0.9-2) Procalcitonin Random Cortisol Nasal Screen MRSA (PCR) (Negative) Blood Type Antibody Screen 05/30/20 05/30/20 05/30/20 Range/Units 04:46 04:32 04:32 WBC (4.8-10.8) K/uL RBC (4.7-6.1) M/uL Hgb (14.0-18.0) g/dL Hct (42-52) % MCV (80-100) fL MCH (25-34) pg MCHC (32-36) g/dL RDW Std Deviation (36.4-46.3) fL RDW Coeff of Paradise (11.5-14.5) % Plt Count (130-400) K/uL MPV (7.4-10.4) fL Immature Gran % (Auto) % Neut % (Auto) % Lymph % (Auto) % [place]ombs % (Auto) % Eos % (Auto) % Baso % (Auto) % Neut # (Auto) (1.4-6.5) K/uL Lymph # (Auto) (1.2-3.4) K/uL [place]ombs # (Auto) (0.11-0.59) K/uL Eos # (Auto) (0-0.5) K/uL Baso # (Auto) (0-0.2) K/uL Immature Gran # (Auto) (0.00-0.02) K/uL Macrocytosis Echinocytes PT (9.0-12.0) Seconds INR (0.9-1.1) ABG pH (7.35-7.45) ABG pCO2 (35-46) mmHg ABG pO2 (80-95) mmHg ABG HCO3 (19-24) mmol/L ABG O2 Saturation (90-95) % ABG Base Excess (-9-1.8) mEq/L Oliver Test (Pos) Mixed VBG pH (7.35-7.45) Mixed VBG pCO2 (38-50) mmHg Mixed VBG pO2 (80-95) mmHg Mixed VBG HCO3 (19-24) mmol/L Mixed VBG Base Excess (-7.7-1.9) mEq/L Mixed VBG O2 Saturation (68) % Barometric Pressure mm/Hg Oxygen Given Sodium (136-145) mmol/L Potassium (3.5-5.1) mmol/L Chloride (98-107) mmol/L Carbon Dioxide (21-32) mmol/L Anion Gap (3-11) BUN (7-18) mg/dl Creatinine (0.6-1.4) mg/dl Est Cr Clr Drug Dosing ml/min Est GFR ( Amer) Est GFR (Non-Af Amer) BUN/Creatinine Ratio (10-20) Glucose (70-99) mg/dl POC Glucose 124 H (70-99) mg/dl Lactate (0.4-2.0) mmol/L Calcium (8.5-10.1) mg/dl Total Bilirubin (0.2-1) mg/dl AST (15-37) U/L ALT (12-78) U/L Alkaline Phosphatase (45-117) U/L Ammonia Troponin I (0-0.045) ng/ml Total Protein (6.4-8.2) gm/dl Albumin (3.4-5.0) gm/dl Globulin (2.5-4.0) gm/dl Albumin/Globulin Ratio (0.9-2) Procalcitonin 10.47 H Random Cortisol Pending Nasal Screen MRSA (PCR) (Negative) Blood Type Antibody Screen 05/30/20 05/30/20 05/30/20 Range/Units 04:32 04:32 04:30 WBC (4.8-10.8) K/uL RBC (4.7-6.1) M/uL Hgb (14.0-18.0) g/dL Hct (42-52) % MCV (80-100) fL MCH (25-34) pg MCHC (32-36) g/dL RDW Std Deviation (36.4-46.3) fL RDW Coeff of Paradise (11.5-14.5) % Plt Count (130-400) K/uL MPV (7.4-10.4) fL Immature Gran % (Auto) % Neut % (Auto) % Lymph % (Auto) % [place] % (Auto) % Eos % (Auto) % Baso % (Auto) % Neut # (Auto) (1.4-6.5) K/uL Lymph # (Auto) (1.2-3.4) K/uL [place] # (Auto) (0.11-0.59) K/uL Eos # (Auto) (0-0.5) K/uL Baso # (Auto) (0-0.2) K/uL Immature Gran # (Auto) (0.00-0.02) K/uL Macrocytosis Echinocytes PT (9.0-12.0) Seconds INR (0.9-1.1) ABG pH (7.35-7.45) ABG pCO2 (35-46) mmHg ABG pO2 (80-95) mmHg ABG HCO3 (19-24) mmol/L ABG O2 Saturation (90-95) % ABG Base Excess (-9-1.8) mEq/L Oliver Test (Pos) Mixed VBG pH (7.35-7.45) Mixed VBG pCO2 (38-50) mmHg Mixed VBG pO2 (80-95) mmHg Mixed VBG HCO3 (19-24) mmol/L Mixed VBG Base Excess (-7.7-1.9) mEq/L Mixed VBG O2 Saturation (68) % Barometric Pressure mm/Hg Oxygen Given Sodium (136-145) mmol/L Potassium 4.3 D (3.5-5.1) mmol/L Chloride (98-107) mmol/L Carbon Dioxide (21-32) mmol/L Anion Gap (3-11) BUN (7-18) mg/dl Creatinine (0.6-1.4) mg/dl Est Cr Clr Drug Dosing ml/min Est GFR ( Amer) Est GFR (Non-Af Amer) BUN/Creatinine Ratio (10-20) Glucose (70-99) mg/dl POC Glucose (70-99) mg/dl Lactate (0.4-2.0) mmol/L Calcium (8.5-10.1) mg/dl Total Bilirubin (0.2-1) mg/dl AST 110 H (15-37) U/L ALT (12-78) U/L Alkaline Phosphatase (45-117) U/L Ammonia < 10.0 L Troponin I (0-0.045) ng/ml Total Protein (6.4-8.2) gm/dl Albumin (3.4-5.0) gm/dl Globulin (2.5-4.0) gm/dl Albumin/Globulin Ratio (0.9-2) Procalcitonin Random Cortisol Nasal Screen MRSA (PCR) Negative (Negative) Blood Type Antibody Screen 05/30/20 05/30/20 05/30/20 Range/Units 04:03 03:51 03:26 WBC 14.48 H (4.8-10.8) K/uL RBC 4.38 L (4.7-6.1) M/uL Hgb 17.0 D (14.0-18.0) g/dL Hct 48.8 (42-52) % MCV 111.4 H (80-100) fL MCH 38.8 H (25-34) pg MCHC 34.8 (32-36) g/dL RDW Std Deviation 62.8 H (36.4-46.3) fL RDW Coeff of Paradise 15.5 H (11.5-14.5) % Plt Count 305 D (130-400) K/uL MPV 11.9 H (7.4-10.4) fL Immature Gran % (Auto) 1.3 % Neut % (Auto) 88.4 % Lymph % (Auto) 3.5 % Toombs % (Auto) 4.1 % Eos % (Auto) 2.6 % Baso % (Auto) 0.1 % Neut # (Auto) 12.80 H (1.4-6.5) K/uL Lymph # (Auto) 0.51 L (1.2-3.4) K/uL Toombs # (Auto) 0.59 (0.11-0.59) K/uL Eos # (Auto) 0.37 (0-0.5) K/uL Baso # (Auto) 0.02 (0-0.2) K/uL Immature Gran # (Auto) 0.19 H (0.00-0.02) K/uL Macrocytosis Present Echinocytes 1+ PT (9.0-12.0) Seconds INR (0.9-1.1) ABG pH (7.35-7.45) ABG pCO2 (35-46) mmHg ABG pO2 (80-95) mmHg ABG HCO3 (19-24) mmol/L ABG O2 Saturation (90-95) % ABG Base Excess (-9-1.8) mEq/L Oliver Test (Pos) Mixed VBG pH (7.35-7.45) Mixed VBG pCO2 (38-50) mmHg Mixed VBG pO2 (80-95) mmHg Mixed VBG HCO3 (19-24) mmol/L Mixed VBG Base Excess (-7.7-1.9) mEq/L Mixed VBG O2 Saturation (68) % Barometric Pressure mm/Hg Oxygen Given Sodium (136-145) mmol/L Potassium (3.5-5.1) mmol/L Chloride (98-107) mmol/L Carbon Dioxide (21-32) mmol/L Anion Gap (3-11) BUN (7-18) mg/dl Creatinine (0.6-1.4) mg/dl Est Cr Clr Drug Dosing ml/min Est GFR ( Amer) Est GFR (Non-Af Amer) BUN/Creatinine Ratio (10-20) Glucose (70-99) mg/dl POC Glucose (70-99) mg/dl Lactate 3.4 H* (0.4-2.0) mmol/L Calcium (8.5-10.1) mg/dl Total Bilirubin (0.2-1) mg/dl AST (15-37) U/L ALT (12-78) U/L Alkaline Phosphatase (45-117) U/L Ammonia Troponin I (0-0.045) ng/ml Total Protein (6.4-8.2) gm/dl Albumin (3.4-5.0) gm/dl Globulin (2.5-4.0) gm/dl Albumin/Globulin Ratio (0.9-2) Procalcitonin Random Cortisol Nasal Screen MRSA (PCR) (Negative) Blood Type Pending Antibody Screen Pending 05/30/20 05/30/20 05/30/20 Range/Units 03:26 03:26 03:26 WBC (4.8-10.8) K/uL RBC (4.7-6.1) M/uL Hgb (14.0-18.0) g/dL Hct (42-52) % MCV (80-100) fL MCH (25-34) pg MCHC (32-36) g/dL RDW Std Deviation (36.4-46.3) fL RDW Coeff of Paradise (11.5-14.5) % Plt Count (130-400) K/uL MPV (7.4-10.4) fL Immature Gran % (Auto) % Neut % (Auto) % Lymph % (Auto) % [place]ombs % (Auto) % Eos % (Auto) % Baso % (Auto) % Neut # (Auto) (1.4-6.5) K/uL Lymph # (Auto) (1.2-3.4) K/uL [place]ombs # (Auto) (0.11-0.59) K/uL Eos # (Auto) (0-0.5) K/uL Baso # (Auto) (0-0.2) K/uL Immature Gran # (Auto) (0.00-0.02) K/uL Macrocytosis Echinocytes PT (9.0-12.0) Seconds INR (0.9-1.1) ABG pH 7.48 H (7.35-7.45) ABG pCO2 18 L (35-46) mmHg ABG pO2 83 (80-95) mmHg ABG HCO3 14 L (19-24) mmol/L ABG O2 Saturation 97.1 H (90-95) % ABG Base Excess -6.7 (-9-1.8) mEq/L Oliver Test Pos (Pos) Mixed VBG pH (7.35-7.45) Mixed VBG pCO2 (38-50) mmHg Mixed VBG pO2 (80-95) mmHg Mixed VBG HCO3 (19-24) mmol/L Mixed VBG Base Excess (-7.7-1.9) mEq/L Mixed VBG O2 Saturation (68) % Barometric Pressure mm/Hg Oxygen Given RA Sodium 138 (136-145) mmol/L Potassium (3.5-5.1) mmol/L Chloride 114 H (98-107) mmol/L Carbon Dioxide 11 L (21-32) mmol/L Anion Gap 13.0 H (3-11) BUN 37 H (7-18) mg/dl Creatinine 1.40 D (0.6-1.4) mg/dl Est Cr Clr Drug Dosing 63.2 ml/min Est GFR ( Amer) 64.2 Est GFR (Non-Af Amer) 55.4 BUN/Creatinine Ratio 26.3 H (10-20) Glucose 53 L* (70-99) mg/dl POC Glucose (70-99) mg/dl Lactate (0.4-2.0) mmol/L Calcium 7.9 L (8.5-10.1) mg/dl Total Bilirubin 8.6 H (0.2-1) mg/dl AST (15-37) U/L ALT 68 (12-78) U/L Alkaline Phosphatase 262 H (45-117) U/L Ammonia Cancelled Troponin I 0.058 H* (0-0.045) ng/ml Total Protein 5.2 L (6.4-8.2) gm/dl Albumin 1.2 L (3.4-5.0) gm/dl Globulin 4.0 (2.5-4.0) gm/dl Albumin/Globulin Ratio 0.3 L (0.9-2) Procalcitonin Random Cortisol Nasal Screen MRSA (PCR) (Negative) Blood Type Antibody Screen 05/30/20 Range/Units 03:25 WBC (4.8-10.8) K/uL RBC (4.7-6.1) M/uL Hgb (14.0-18.0) g/dL Hct (42-52) % MCV (80-100) fL MCH (25-34) pg MCHC (32-36) g/dL RDW Std Deviation (36.4-46.3) fL RDW Coeff of Paradise (11.5-14.5) % Plt Count (130-400) K/uL MPV (7.4-10.4) fL Immature Gran % (Auto) % Neut % (Auto) % Lymph % (Auto) % [place] % (Auto) % Eos % (Auto) % Baso % (Auto) % Neut # (Auto) (1.4-6.5) K/uL Lymph # (Auto) (1.2-3.4) K/uL [place] # (Auto) (0.11-0.59) K/uL Eos # (Auto) (0-0.5) K/uL Baso # (Auto) (0-0.2) K/uL Immature Gran # (Auto) (0.00-0.02) K/uL Macrocytosis Echinocytes PT (9.0-12.0) Seconds INR (0.9-1.1) ABG pH (7.35-7.45) ABG pCO2 (35-46) mmHg ABG pO2 (80-95) mmHg ABG HCO3 (19-24) mmol/L ABG O2 Saturation (90-95) % ABG Base Excess (-9-1.8) mEq/L Oliver Test (Pos) Mixed VBG pH (7.35-7.45) Mixed VBG pCO2 (38-50) mmHg Mixed VBG pO2 (80-95) mmHg Mixed VBG HCO3 (19-24) mmol/L Mixed VBG Base Excess (-7.7-1.9) mEq/L Mixed VBG O2 Saturation (68) % Barometric Pressure mm/Hg Oxygen Given Sodium (136-145) mmol/L Potassium (3.5-5.1) mmol/L Chloride (98-107) mmol/L Carbon Dioxide (21-32) mmol/L Anion Gap (3-11) BUN (7-18) mg/dl Creatinine (0.6-1.4) mg/dl Est Cr Clr Drug Dosing ml/min Est GFR ( Amer) Est GFR (Non-Af Amer) BUN/Creatinine Ratio (10-20) Glucose (70-99) mg/dl POC Glucose (70-99) mg/dl Lactate (0.4-2.0) mmol/L Calcium (8.5-10.1) mg/dl Total Bilirubin (0.2-1) mg/dl AST (15-37) U/L ALT (12-78) U/L Alkaline Phosphatase (45-117) U/L Ammonia Troponin I (0-0.045) ng/ml Total Protein (6.4-8.2) gm/dl Albumin (3.4-5.0) gm/dl Globulin (2.5-4.0) gm/dl Albumin/Globulin Ratio (0.9-2) Procalcitonin Cancelled Random Cortisol Nasal Screen MRSA (PCR) (Negative) Blood Type Antibody Screen Diagnostic Findings CT SCAN OF THE ABDOMEN AND PELVIS WITH IV CONTRAST CLINICAL HISTORY: Generalized abdominal pain. Hypotension. COMPARISON STUDY: Abdominal CT dated 05/18/2020. TECHNIQUE: Following the IV administration of 93 cc of Optiray 320, CT scan of the abdomen and pelvis is performed from the lung bases to the proximal femora. Images are reviewed in the axial, sagittal, and coronal planes. IV contrast was administered without complication. A dose lowering technique was utilized adhering to the principles of ALARA. The examination is modestly degraded by motion artifact. CT DOSE: 1403.28 mGy.cm FINDINGS: Lung bases: The heart is normal in size and without pericardial effusion. There are trace pleural effusions with dependent atelectasis. Patchy groundglass consolidation is identified in the right middle lobe. Liver: The contrast-enhanced liver is enlarged, measuring 20.2 cm in length. The liver is cirrhotic in morphology and heterogeneous in attenuation. There is nodularity of the hepatic surface contour. There is no intrahepatic biliary ductal dilatation. The hepatic veins and portal veins are patent. Gallbladder: The gallbladder is decompressed. Gallbladder wall thickening is nonspecific and likely related to cirrhosis and ascites. Spleen: Normal in size and attenuation. Pancreas: Moderately atrophic and grossly unremarkable. Adrenal glands: The adrenal glands appear hyperemic. Kidneys: The contrast enhanced kidneys demonstrate cortical atrophy and are without hydronephrosis. The kidneys enhance symmetrically. Abdominal vasculature: The abdominal aorta is normal in course and caliber noting moderate to advanced atherosclerotic calcification. Bowel: There is mild diffuse wall thickening and hyperemia of the small bowel loops. This is most apparent in loops of jejunum in the left upper quadrant on image #[id number]. There is no pneumatosis intestinalis or portal venous gas. No bowel obstruction is seen. There is mild colonic diverticulosis without CT evidence of acute diverticulitis. The appendix is well-visualized and normal. Peritoneum: There are numerous small foci of intraperitoneal free air in the abdomen. There is a small to moderate volume of abdominopelvic ascites. Lymphadenopathy: None. Pelvic viscera: The bladder is decompressed around a [place] catheter. Foci of intraluminal gas are likely related to instrumentation. The prostate gland is diminutive versus surgically absent. The seminal vesicles are normal as imaged. Skeletal structures: There is mild to moderate lumbosacral spondylosis and scoliosis. No lytic or blastic lesions are seen. There is evidence of avascular necrosis of the left femoral head. IMPRESSION: 1. Numerous foci of intraperitoneal free air are seen in the abdomen. Menisci concerning for visceral perforation. The site of perforation cannot be delineated. Surgical consultation is advised. 2. Patchy groundglass consolidation is identified in the right middle lobe. Correlate clinically for evidence of an infectious/inflammatory pneumonitis. 3. Mild cardiac enlargement and trace pleural effusions. 4. The liver is enlarged, cirrhotic in morphology, and heterogeneous in attenuation. 5. There is a small to moderate volume of abdominopelvic ascites. This has increased from 05/18/2020. 6. There is diffuse wall thickening and hyperemia of the small bowel loops, possibly related to hypotension/hyperproteinemia. There is no pneumatosis intestinalis or portal venous gas. Clinical correlation will be essential. 7. The adrenal glands appear hyperemic which can also be seen in the setting of hypotension/shock. 8. Gallbladder wall thickening is nonspecific and likely related to cirrhosis and ascites. 9. Avascular necrosis of the left femoral head. 10. Additional findings as above. XR chest 1V portable HISTORY: Congestive heart failure. Low blood pressure. Respiratory distress. COMPARISON: Chest 05/17/2020. FINDINGS: There are low lung volumes. No pneumothorax. No pleural effusions. The heart remains mildly enlarged. There is mild central pulmonary basilar congestion without overt edema. This is similar to the prior study. IMPRESSION: 1. Low lung volumes. 2. Mild cardiomegaly and mild central pulmonary vascular congestion persist.
--- NOTE | 2020-05-30 10:11 | Communication Note ---
Date of Service: May 30, 2020 59-year-old male who has prolonged hospitalization this admission he was admitted on 05/11/2020 for altered mental status and alcoholic hepatitis. His initial discriminant factor was 32.2 which improved while on pentoxifylline. He was changed to prednisone 40 mg on 05/25/2020. His bilirubin has gradually improved. His mental status is still the same he is oriented to self but goes in and out of where he is. For the encephalopathy the thinking is the patient being in chronic alcoholic alcohol induced Early in the morning patient was found to be febrile, hypotensive and complaining of abdominal pain. CT abdomen pelvis was done to rule out any abdominal pathology which showed pneumoperitoneum. Patient blood pressure needing vasopressor support. Currently he is on Levophed as well as vasopressin. Patient had left radial A-line which stopped working. Right-sided femoral arterial line was placed in We will start the patient on Protonix p.o. twice daily. Stat surgical consult patient will need OR. Type and screen. Protonix twice daily. Patient's INR is 1.4. Family has been updated. Patient also has NUBIA this could have been from underlying hypotension. We will keep a close eye on it. I have personally spent additional 23 minutes of critical care time in the direct management of this patient. This is a life/limb threatening event. This includes time spent evaluating patient, direct bedside care, chart review, placing orders, interpretation of diagnostic studies, discussion with consultants, patient, and family members, as well as other required patient management activities. This time is exclusive of all separately billable procedures, and teaching time and separate from and in addition to any other critical care service time. Please note the above document was generated using voice recognition software. It may contain grammatical, syntax or spelling errors. Coding Level of Care Code Critical Care ea addt'l 30 min Time Spent (min) 23
[2020-05-30] MEDS ORDERED: ONDANSETRON INJ 2 MG/ML 2 ML VIAL ONE (10:16)
[2020-05-30] MEDS ORDERED: LIDOCAINE HCL 2% 2 ML VIAL/AMP(20MG/ML) INFIL ONE (10:16)
[2020-05-30] MEDS ORDERED: PROPOFOL IV EMULSION 10 MG/ML 20 ML VIAL IV ONE (10:16)
[2020-05-30] MEDS ORDERED: ROCURONIUM BROMIDE 10 MG/ML 5 ML VIAL IV ONE ×4 (10:16→13:18)
[2020-05-30] MEDS ORDERED: fentaNYL citrate 100 MCG/2 ML VIAL ONE (10:17)
[2020-05-30 10:18] LABS: iSTAT Arterial Blood Gas HCO3 13 meg/L (19-24); iSTAT Arterial Blood Gas pCO2 19 mmHg (35-46); iSTAT Arterial Blood Gas pH 7.43 (7.35-7.45); iSTAT Arterial Blood Gas pO2 76 mmHg (80-95); iSTAT Carbon Dioxide 13 mmol/L (24-31); iSTAT Site Art Line
--- NOTE | 2020-05-30 10:20 | Consultation ---
Date of Consultation May 30, 2020 Assessment & Plan (1) Pneumoperitoneum: 59 year-old who has been admitted for almost 3 weeks for acute alcoholic hepatitis, cirrhosis, metabolic encephalopathy who decompensated last night becoming hypotensive, tachypneic, and febrile. CT scan showing evidence of foci of pneumoperitoneum concerning for visceral perforation. Examination proves distention with peritonitis. Plan: Dr. Mandujano reviewed patients imaging and examined pt. Given his acute abdomen he will need surgical exploration. She discussed findings of CT scan with patient's Tatiana (2) Septic shock: (3) Tachypnea: Supervising Physician Co-Signing Physician Notes Discussed with pt's Tatiana via telephone. While he remains at a high risk of surgical morbidity/ mortality due to his underlying medical conditions, he now has developed an acute abdomen and signs of sepsis. Surgical intervention is the best option for attempting to fix whatever is leaking - discussed this may need a bowel resection or even an ostomy depending on the source. Risks of , bleeding, infection, heart attack, worsening liver disease with acute liver failure, ileus, prolonged hospital course all reviewed. Option of transfer to tertiary care facility discussed (although this would delay intervention). She consents for exploratory laparotomy, possible bowel resection, possible ostomy here. History of Present Illness Please see history and physical by JOSE Franklin. Pt seen and examined with her. 59 yr old man with alcoholic hepatitis, cirrhosis, varices, encephalopathy in hospital since 05/11/2020 who acutely decompensated overnight developing hypotension, abdominal pain, increase lactate, tachypnea. CT scan reviewed - shows increased ascites and foci of intraperitoneal free air, source not seen. Pt currently confused - thinks he is in [place]. Attending Physician: Tyron Che MD Allergies Allergy/AdvReac Type Severity Reaction Status Date / Time No Known Allergies Allergy Unverified 02/05/20 08:04 Home Medications Home Medications Medication Instructions Recorded Confirmed Type atorvastatin 40 mg tablet 40 mg PO DAILY 04/23/19 02/05/20 History folic acid 400 mcg tablet 0.4 mg PO DAILY tab 04/23/19 02/05/20 History lisinopril 40 mg tablet 40 mg PO DAILY #1 tab 04/23/19 02/05/20 History carvedilol 25 mg tablet 25 mg PO BID #60 tab 05/17/19 02/05/20 Rx [place]-3 1 cap PO DAILY 10/22/19 02/05/20 History ascorbic acid (vitamin C) [Vitamin 1,000 mg PO DAILY 10/22/19 02/05/20 History C] aspirin [Aspir-Low] 81 mg PO DAILY 10/22/19 02/05/20 History coenzyme Q10 [Co Q-10] 200 mg PO DAILY 10/22/19 02/05/20 History glucosamine-chondroitin [Osteo 1 tab PO BID 10/22/19 02/05/20 History Bi-Flex] milk thistle 1,000 mg PO BID 10/22/19 02/05/20 History nitroglycerin [Nitrostat] 0.4 mg SUBLINGUAL UD PRN 10/22/19 02/05/20 History vitamin B complex 1 tab PO DAILY 10/22/19 02/05/20 History meloxicam 15 mg tablet 15 mg PO DAILY #30 tab 11/01/19 02/05/20 Rx lorazepam 1 mg PO Q12H PRN #10 tab 11/22/19 02/05/20 Rx acetaminophen 300 mg-codeine 30 mg 1 tab PO TID PRN #90 tab 02/04/20 02/05/20 Rx tablet clopidogrel 75 mg tablet 75 mg PO DAILY #30 tab 02/04/20 02/05/20 Rx Patient History Medical History Alcohol dependence Alcohol withdrawal C. difficile diarrhea CAD (coronary artery disease) "03/29/2017 - anterior STEMI, s/p JEFFREY to LAD" History of Clostridioides difficile colitis History of GI bleed "secondary to esophageal ulceration on EGD 11/29/2013" HTN (hypertension) Hyperlipidemia LDL goal <70 Ischemic cardiomyopathy "EF 30-35%" Obesity Renal artery stenosis "questionable" Surgical History H/O esophagogastroduodenoscopy "11/29/2013- Large lower esophageal ulceration. No bleeding. Portal hypertensive gastropathy. Erythematous duodenopathy. Normal 2nd part of the duodenum." Social History Smoking Status: Current every day smoker Tobacco Type: Cigarettes Cigarettes Per Day: 20; Second Hand Exposure: No; Hx Alcohol Use: Yes Alcohol type: beer Alcohol Intake Frequency Comment: 30 beers a day for the last 6 weeks Hx Substance Use: No Preferred Language: Yoruba Communication Ability: Unable Paving Inspector Required: No Beliefs That Will Affect Care: None marital status: Current Living Situation: Spouse Feels Safe at Home: Yes Review of Systems Review of Systems: Unobtainable due to cognitive status Physical Exam Respiratory: no labored breathing and no retractions decreased at bases Cardiovascular: Rate/Rhythm: regular rhythm and + tachycardic Gastrointestinal (Abdomen): Inspection/Auscultation: + abdomen distended Percussion/Palpation: + abdomen tender and + guarding Neurologic: moves all extremities; no focal motor deficits Psychiatric: confused, not oriented to place/ time Results & Data ([facility]) Vital Signs (Past 12 Hours) Vital Signs Temp Pulse Pulse Resp BP BP Pulse Ox 05/30/20 08:00 38.1 C H 99 H 26 H 99 05/30/20 07:00 38.1 C H 110 H 31 H 96 05/30/20 06:45 38.1 C H 124 H 19 94 05/30/20 06:37 38.1 C H 101 H 40 H 88/46 L 100 05/30/20 06:30 38.1 C H 102 H 43 H 98 05/30/20 06:21 38.2 C H 102 H 18 109/65 95 05/30/20 06:15 38.2 C H 105 H 46 H 95 05/30/20 06:06 38.2 C H 102 H 30 H 90/54 L 93 05/30/20 06:00 38.2 C H 100 H 24 95 05/30/20 05:53 38.2 C H 101 H 35 H 95 05/30/20 05:52 38.2 C H 100 H 43 H 79/54 L 95 05/30/20 05:45 38.1 C H 100 H 45 H 97 05/30/20 05:30 38.2 C H 98 H 42 H 98 05/30/20 05:16 102 H 05/30/20 05:15 38.4 C H 100 H 37 H 95 05/30/20 05:09 38.5 C H 106 H 28 H 95 05/30/20 05:08 38.5 C H 106 H 39 H 66/46 L 95 05/30/20 05:00 38.6 C H 106 H 23 95 05/30/20 04:58 119 H 85/46 L 92 05/30/20 04:48 103 H 41 H 65/47 L 95 05/30/20 04:45 95 H 19 96 05/30/20 04:38 99 H 31 H 81/44 L 95 05/30/20 04:30 100 H 36 H 95 05/30/20 04:28 96 H 22 65/44 L 92 05/29/20 23:11 36.5 C 69 20 125/86 95 05/29/20 22:20 80
[2020-05-30] MEDS ORDERED: BUPIVACAINE 0.5 % 5 MG/1 ML MPF 30ML VIAL ONE (10:26)
--- NOTE | 2020-05-30 10:30 | Anesthesiology Consultation ---
Date of Service May 30, 2020 Assessment & Plan (1) Encounter for pre-operative examination: Chart Review Chart Review: Acceptable Risk for Surgery (emergent surgery for free air, sepsis - on vasopressors already) History Surgery Operation Date: 05/30/20 14:00 Proposed Procedures p Exploratory Laparotomy, Possible Bowel Resection, Possible Ostomy - Denisse Mandujano MD Height/Weight Height: 5 ft 6 in Weight: 97 kg Allergies Allergy/AdvReac Type Severity Reaction Status Date / Time No Known Allergies Allergy Unverified 02/05/20 08:04 Medications Home Medications Medication Instructions Recorded Confirmed Last Taken atorvastatin 40 mg tablet 40 mg PO DAILY 04/23/19 02/05/20 01/07/20 folic acid 400 mcg tablet 0.4 mg PO DAILY tab 04/23/19 02/05/20 01/07/20 lisinopril 40 mg tablet 40 mg PO DAILY #1 tab 04/23/19 02/05/20 01/07/20 carvedilol 25 mg tablet 25 mg PO BID #60 tab 05/17/19 02/05/20 01/07/20 [place]-3 1 cap PO DAILY 10/22/19 02/05/20 01/07/20 ascorbic acid (vitamin C) [Vitamin 1,000 mg PO DAILY 10/22/19 02/05/20 01/07/20 C] aspirin [Aspir-Low] 81 mg PO DAILY 10/22/19 02/05/20 01/07/20 coenzyme Q10 [Co Q-10] 200 mg PO DAILY 10/22/19 02/05/20 01/07/20 glucosamine-chondroitin [Osteo 1 tab PO BID 10/22/19 02/05/20 01/07/20 Bi-Flex] milk thistle 1,000 mg PO BID 10/22/19 02/05/20 01/07/20 nitroglycerin [Nitrostat] 0.4 mg SUBLINGUAL UD PRN 10/22/19 02/05/20 01/07/20 vitamin B complex 1 tab PO DAILY 10/22/19 02/05/20 01/07/20 meloxicam 15 mg tablet 15 mg PO DAILY #30 tab 11/01/19 02/05/20 01/07/20 lorazepam 1 mg PO Q12H PRN #10 tab 11/22/19 02/05/20 01/07/20 acetaminophen 300 mg-codeine 30 mg 1 tab PO TID PRN #90 tab 02/04/20 02/05/20 01/07/20 tablet clopidogrel 75 mg tablet 75 mg PO DAILY #30 tab 02/04/20 02/05/20 01/07/20 Active Medications Generic Name Dose Route Start Last Admin Trade Name Freq PRN Reason Stop Dose Admin Benzocaine 1 appln 05/15/20 11:18 05/15/20 16:00 Benzocaine 20% Aer Spr 82.5 Gm Can EXT 06/14/20 11:17 1 appln UD PRN Administration Pain Calamine/Phenol 1 appln 05/15/20 20:00 05/15/20 20:52 Menthol-Zinc Oxide 360 Appln/120 Gm Tube EXT 06/14/20 19:59 1 appln UD WESLY Administration Dextrose 25 - 50 ml 05/11/20 21:09 05/30/20 04:32 Dextrose 50% 50 Ml Syringe IV 06/10/20 21:08 50 ml UD PRN Administration Hypoglycemia Protocol Protocol Heparin Sodium (Porcine) 5,000 units 05/21/20 09:00 05/30/20 05:31 Heparin Sod 5,000 Unit/0.5 Ml Vial SQ 06/20/20 08:59 5,000 units Q8 WESLY Administration Folic Acid 1 mg/ Syringe 10 mls @ 5 mls/min 05/12/20 11:00 05/30/20 07:37 IV 06/11/20 10:59 5 mls/min QAM WESLY Administration Thiamine HCl 200 mg/ Sodium 52 mls @ 208 mls/hr 05/17/20 12:30 05/30/20 07:53 Chloride IV 06/16/20 12:29 Infused BID WESLY Infusion Lorazepam 0.5 mg in 1 mls @ 1 mls/min 05/23/20 18:42 05/30/20 00:29 Ativan IV 06/22/20 18:41 1 mls/min Q8 PRN Administration Agitation Piperacillin Sod/Tazobactam 120 mls @ 30 mls/hr 05/30/20 10:00 05/30/20 09:30 Sod 4.5 gm/ Dextrose IV 06/01/20 09:59 30 mls/hr Q8H WESLY Administration Protocol Norepinephrine Bitartrate 8 mg 508 mls @ 25.683 mls/hr 05/30/20 04:30 05/30/20 09:19 / Dextrose IV 06/29/20 04:29 0.07 mcg/kg/min .[id number] WESLY 25.7 mls/hr Titration Protocol 0.07 MCG/KG/MIN Sodium Chloride 1,000 mls @ 80 mls/hr 05/30/20 06:15 05/30/20 06:23 Nss 1000ml IV 06/29/20 06:14 80 mls/hr .[id number] WESLY Administration Vasopressin 20 units/ Sodium 101 mls @ 12.12 mls/hr 05/30/20 07:30 05/30/20 07:31 Chloride IV 06/29/20 07:29 0.04 unit/min .[id number] WESLY 12.1 mls/hr Administration 0.04 UNIT/MIN Miscellaneous 1 ea 05/12/20 13:45 05/30/20 07:34 Remove Nicoderm Patch N/A 06/11/20 13:44 1 ea DAILY@[id number] WESLY Administration Nicotine 21 mg 05/12/20 13:45 05/30/20 07:36 Nicotine 21 Mg/24 Hr Tdsy TD 06/11/20 13:44 21 mg QAM WESLY Administration Prednisolone 40 mg 05/30/20 09:00 05/30/20 07:38 Prednisolone Syrup 15 Mg/5 Ml Btl PO 06/29/20 08:59 40 mg QAM WESLY Administration NPO Date Last Intake of Fluids: 05/29/20 Time Last Intake of Fluids: 17:00 Date Last Intake of Solids: 05/29/20 Time Last Intake of Solids: 17:00 Past Medical History Medical History (Updated 05/30/20 @ 10:30 by Rigoberto Nunez MD) Alcohol dependence Alcohol withdrawal AMS (altered mental status) C. difficile diarrhea CAD (coronary artery disease) "03/29/2017 - anterior STEMI, s/p JEFFREY to LAD" History of Clostridioides difficile colitis History of GI bleed "secondary to esophageal ulceration on EGD 11/29/2013" HTN (hypertension) Hyperlipidemia LDL goal <70 Ischemic cardiomyopathy "EF 30-35%" Obesity Pneumonia Renal artery stenosis "questionable" Septic shock Past Surgical History Surgical History H/O esophagogastroduodenoscopy "11/29/2013- Large lower esophageal ulceration. No bleeding. Portal hypertensive gastropathy. Erythematous duodenopathy. Normal 2nd part of the duodenum." Social History Smoking Status: Current every day smoker tobacco type: cigarettes Smoking cigarettes per day: 20 Do You Dip or Chew Tobacco: No Hx Alcohol Use: Yes Alcohol type: beer alcohol intake frequency: 3 or more drinks per day Alcohol Intake Frequency Comment: 20 beers last night Hx Substance Use: No substance use type: crack/cocaine Substance Use Type Other:: 1980s Physical Exam Vital Signs Last Vital Signs Temp 38.1 C H 05/30/20 10:22 Pulse 92 H 05/30/20 10:22 Resp 26 H 05/30/20 10:22 BP 82/62 L 05/30/20 10:22 Pulse Ox 98 05/30/20 10:22 Testing Laboratory Results 05/30/20 03:26 05/30/20 04:32 PT 15.0 Seconds (9.0-12.0) H 05/30/20 06:48 INR 1.4 (0.9-1.1) H 05/30/20 06:48 APTT 31.6 Seconds (21.0-31.0) H 05/12/20 04:06 Urine Color Dark Yellow 05/11/20 12:05 Urine Appearance Clear (Clear) 05/11/20 12:05 Urine pH 6.5 (4.5-7.5) 05/11/20 12:05 Ur Specific [place] 1.017 (1.000-1.030) 05/11/20 12:05 Urine Protein Negative (Negative) 05/11/20 12:05 Urine Glucose (UA) Negative (Negative) 05/11/20 12:05 Urine Ketones 1+ (Negative) H 05/11/20 12:05 Urine Nitrite Negative (Negative) 05/11/20 12:05 Ur Leukocyte Esterase Negative (Negative) 05/11/20 12:05 Urine WBC (Auto) 1-5 /hpf (0-5) 05/11/20 12:05 Urine RBC (Auto) 5-10 /hpf (0-4) H 05/11/20 12:05 U Hyaline Cast (Auto) 1-5 /lpf (0-5) 05/11/20 12:05 U Epithel Cells (Auto) 5-10 /lpf (0-5) H 05/11/20 12:05 Urine Bacteria (Auto) Negative (Negative) 05/11/20 12:05 Blood Type A Positive 05/30/20 04:03 Antibody Screen NEGATIVE 05/30/20 04:03 05/26/20 18:50 Urine Culture - Final Urine,Random Gram positive cocci 05/14/20 05:12 Escherichia coli Shiga Toxins Test - Final Stool Stool Culture - Final No Salmonella isolated, No Shigella isolated, No Campylobacter jejuni isolated. 05/11/20 10:35 Aerobic Blood Culture - Final Blood No growth in Aerobic bottle after 5 days. Anaerobic Blood Culture - Final No growth in Anaerobic bottle after 5 days. 05/11/20 11:10 Aerobic Blood Culture - Final Blood No growth in Aerobic bottle after 5 days. Anaerobic Blood Culture - Final No growth in Anaerobic bottle after 5 days. 05/30/20 04:46 POC Glucose 124 H Electrocardiogram Date: 05/30/20 Findings: + ST @ (119) and + MO (septal and lateral both cited before ) Echocardiogram Date: 05/16/19 EF: 40% Valvular Disease: + no significant valvular disease
--- NOTE | 2020-05-30 10:40 | Procedure Note ---
Procedure Note Date of Service May 30, 2020 ARTERIAL LINE PROCEDURE NOTE: Procedure: Arterial Line Placement Attending: Dr. Chas Hauser MD Indication: Monitoring on Pressors Anesthesia: Local Lidocaine 1% Emergency consent was applied. A time-out was completed verifying correct patient, procedure, site, positioning, and implant(s) or special equipment if applicable. Patients right groin was prepped and draped in the usual sterile fashion. Ultrasound guidance was used to aid needle placement. A 20g Arrow arterial line was introduced into the right femoral artery. Catheter was threaded, and the needle was removed with appropriate pulsatile blood return. Good waveform was observed on the monitor. The patient tolerated the procedure well. Confirmation of placement with ultrasound. Images saved to medical record. Blood Loss: Less than 5 cc Complications: None Coding CPT Codes Tubes, Drains, and Vasc Access - Tubes, Drains, and Vasc Access: [id number] Place Catheter In Artery ([id number]) Tubes, Drains, and Vasc Access - Tubes, Drains, and Vasc Access: [id number] Ultrasound Guidance For Vascular ([id number]) [facility] [place] Procedure Codes (Charges) Tubes, Drains, and Vasc Access Procedure 1: Tubes, Drains, and Vasc Access: [id number] Place Catheter In Artery Procedure 2: Tubes, Drains, and Vasc Access: [id number] Ultrasound Guidance For Vascular
[2020-05-30] MEDS: PANTOprazole 40 MG in SYRINGE 0 ML IV SCH ×2 (10:41→20:42)
[2020-05-30] MEDS ORDERED: MIDAZOLAM HCL 1 MG/ML 2ML VIAL ONE (10:45)
[2020-05-30 10:51] LABS: Appearance Urine Cloudy (Clear); Blood Urine 3+ (Negative); Color Urine Orange; Epithelial Cell Urine Auto >30 /lpf (0-5); Glucose Urine UA Trace (Negative); Ketones Urine Negative (Negative); Leukocyte Esterase Urine 1+ (Negative); Nitrite Urine Positive (Negative); Protein Urine 1+ (Negative); Specific Gravity Urine > 1.045 (1.000-1.030); Urobilinogen Urine Negative (Negative)
[2020-05-30 10:58] LABS: Bilirubin Urine 3+ (Negative); Ictotest Urine Positive (Negative)
[2020-05-30 11:09] LABS: Bacteria Urine Automated 1+ (Negative)
[2020-05-30 11:10] LABS: Calcium Oxalate Crystals Urine Present (None Prsent)
[2020-05-30] MEDS ORDERED: ePHEDrine sulfate 50 MG/ML AMP ONE (11:44)
[2020-05-30] MEDS ORDERED: SUCCINYLCHOLINE CHLORIDE 20 MG/ML 10 ML VIAL IV ONE (11:44)
[2020-05-30] MEDS ORDERED: PHENYLEPHRINE HCL 10 MG/ML VIAL ONE (11:44)
[2020-05-30] MEDS ORDERED: THROMBIN FOR SOLN 20000 UNIT KIT ONE (12:17)
[2020-05-30] MEDS ORDERED: GELATIN SPONGE SZ 100 ONE (12:17)
--- NOTE | 2020-05-30 12:42 | Electrocardiogram Report ---
Test Reason : Blood Pressure : / mmHG Vent. Rate : 119 BPM Atrial Rate : 119 BPM P-R Int : 136 ms QRS Dur : 076 ms QT Int : 336 ms P-R-T Axes : 015 -44 042 degrees QTc Int : 472 ms Sinus tachycardia Left axis deviation Low voltage QRS Poor R wave progression, consider anterior AK vs. lead placement vs. LVH Possible Lateral infarct (cited on or before 20-NOV-2019) Abnormal ECG When compared with ECG of 19-MAY-2020 12:23, Criteria for Inferior infarct are no longer Present Questionable change in initial forces of Anterior leads Confirmed by Luis Fernando Allison ([id number]) on 05/30/2020 12:41:58 PM Referred By: REFERRED SELF Confirmed By:Ruddy Allison
--- NOTE | 2020-05-30 12:49 | Pharmacy Report ---
Pharmacy Abx Dose Short Note - Date of Service May 30, 2020 - Assessment & Plan Assessment * 59 year old M receiving VANCOMYCIN + ZOSYN as empiric therapy for septic shock from presumed perf viscous (free air on CT abdomen) * Patient does have risk factors for resistant organisms (hospitalization > 5 days, receipt of abx in last 90 days, etc) * Patient was taken to OR urgently this AM for source control * BLCXs pending, Urine cx is growing GPC * Patient does have h/o cirrhosis, varies, ascites, GIB secondary esophageal ulceration * NUBIA present on last PRP (SCr 0.8 --> 1.4) and UOP < 0.5mL/kg/hr over prior 4 hrs. Patient was given IV bolus resuscitation, and is currently dependent on 2 vasopressors (norepi + vasopressin). MAPs in 60-70s this AM prior to OR departure. Plan Vancomycin * 2000mg IV load x 1 given (~21mg/kg) * Given inability to accurately predict renal elimination at this time given changing renal fxn, will check random level in 12-16 hrs to ensure therapeutic level achieved. If level less than 20mcg/mL may give 15mg/kg x 1 and repeat random level in 12-16 hrs. * Goal trough level for septic shock : 15 to 20 mcg/mL Zosyn * eCrCl likely > 20 if adequate MAPs maintained and producing urine, BMI < 35 however critically ill. Continue 4.5gm ext-infusion Q 8 hrs at this time - reassess tomorrow. Pharmacy will continue to follow and will adjust dose/frequency as necessary. Thank you.
--- NOTE | 2020-05-30 13:45 | Operative Report ---
Post Operative Report Pre & Post Diagnosis Operation Date: 05/30/20 14:00 Pre-Op Diagnosis: Pneumoperitoneum Post-Op Diagnosis: Perforated Sigmoid Colon I identified the patient and participated in the time-out.: Yes Procedure Operation Date: 05/30/20 14:00 Actual Procedures p Exploratory Laparotomy, Bowel Resection, Ostomy(Not Applicable) - Denisse Gillespie MD Surgeon Denisse Mandujano MD Card Grader JOSE Franklin Estimated Blood Loss 30 Findings See Below (multiple collaterals in abdominal wall, cirrhotic liver, perforated sigmoid diverticulitis) Specimens sigmoid colon Description of Procedure see dictated operative note I attest to the content of the Intraoperative Record and any orders documented therein. Any exceptions are noted below.
--- NOTE | 2020-05-30 14:18 | Operative Report (OR) ---
DATE OF OPERATION: 05/30/2020 PREOPERATIVE DIAGNOSIS: Pneumoperitoneum, acute abdomen. POSTOPERATIVE DIAGNOSIS: Perforated sigmoid diverticulitis. SURGEON: Denisse Mandujano MD. CIO: JOSE Franklin. ANESTHESIA: General endotracheal anesthesia. ESTIMATED BLOOD LOSS: 30 mL IV FLUIDS: 1500 mL SPECIMENS: Sigmoid colon. OPERATIVE FINDINGS: Cirrhotic liver, 2.2 liters of ascites upon entering the abdomen, multiple abdominal wall collaterals, collaterals around the mesentery in the abdomen, also perforated sigmoid diverticulitis. No significant stool within the abdomen, very distended stomach, unable to pass the NG tube. INDICATIONS: The patient is a 59-year-old alcoholic who was admitted with alcoholic hepatitis, encephalopathy, worsening ascites and hyperbilirubinemia. The hospital course was notable for slow improvement of these. However, he acutely developed abdominal pain, hypotension and tachycardia. CT scan revealed evidence of pneumoperitoneum. He was seen and was noted to be confused. Discussion was had with his and she consented to exploratory laparotomy. DESCRIPTION OF PROCEDURE: The patient was on Zosyn preoperatively. After the induction of general endotracheal anesthesia, he had placement of sequential compression devices. He already had a [place] catheter placed. Multiple attempts were made to place an NG or an OG tube, but these were unsuccessful. The abdomen was clipped and then sterilely prepped and draped. A midline incision was made and carried into the abdomen. Initially 2.2 liters of ascites was drained. The abdomen was then opened and the Bookwalter retractor was placed. The small bowel was run from ligament of Treitz to terminal ileum. There was no evidence of any abnormality noted. The stomach was very distended and did not have any thickening. The sigmoid colon was seen to have a perforation along the diverticuli. The sigmoid colon was then mobilized starting at the white line of Toldt. There were multiple vascular structures within this area due to his collaterals. In addition, he had multiple abdominal wall collaterals even on entering the abdomen which needed to be ligated with Vicryl suture. The LigaSure was used in order to free up the sigmoid colon medially. This was taken up to the splenic flexure, but the splenic flexure was not mobilized. A window was created on the sigmoid colon at its base below the perforation and the sigmoid was divided with a firing of the STEVIE 80 stapler. A spot was chosen above the perforation, this was also divided and the specimen sent off the field. The colostomy site itself was then mobilized and due to the patient's obesity, this was somewhat tight. However, there were no other area to mobilize as the tightness did appear to be coming from the blood supply. The 2-0 Prolenes were placed on the Saloni stump. The abdomen was irrigated multiple times. A round VICKY was placed into the abdomen through the right lower quadrant and placed into the pelvis to help drain the ascites. This was secured to the skin with a nylon stitch. After the counts were correct and the abdomen was irrigated, the ostomy window was created on the left of the abdomen. The fascia was divided with a cruciate division, the muscle was spread and the ostomy brought out through the muscle. As mentioned, while this was able to be brought up, the vascular side was noted to be somewhat tight, but there does not appear to be anything else to clear up in order to free it up further. The fascia was then closed with a running looped #1 PDS sutures x2 meeting in the midline and interrupted 0 Vicryl stitches in [id number] fashion was used to buttress the closure. This was irrigated and then the skin was loosely closed with katt. The ostomy was then matured with interrupted 3-0 Vicryl sutures. This did appear to be viable at the end of the procedure. The ostomy bag was placed and he was taken intubated to the intensive care unit in stable but overall sick condition. The PA assisted in retraction, served as the machinist first class and assisted in closure of the wound. I attest to the content of the Intraoperative Record and any orders documented therein. Any exception s are noted below.
[2020-05-30] MEDS ORDERED: PROPOFOL BOLUS FROM BAG IV PRN (14:44)
[2020-05-30] MEDS: propofoL 1,000 MG/100 ML VIAL IV SCH ×2 (14:53→20:41)
--- NOTE | 2020-05-30 15:11 | Anesthesiology Progress Note ---
Date of Service May 30, 2020 Anesthesia Post Procedure Vital Signs Vital Signs: Temp Pulse Pulse Resp BP BP BP 05/30/20 14:28 37.3 C 87 12 122/84 05/30/20 14:20 37.3 C 86 12 117/76 05/30/20 14:16 86 12 05/30/20 14:10 37.2 C 91 H 14 102/74 05/30/20 14:08 37.0 C 86 12 117/77 05/30/20 10:22 38.1 C H 92 H 26 H 82/62 L 05/30/20 08:00 38.1 C H 99 H 26 H 05/30/20 07:00 38.1 C H 110 H 31 H 05/30/20 06:45 38.1 C H 124 H 19 05/30/20 06:37 38.1 C H 101 H 40 H 88/46 L 05/30/20 06:30 38.1 C H 102 H 43 H 05/30/20 06:21 38.2 C H 102 H 18 109/65 05/30/20 06:15 38.2 C H 105 H 46 H 05/30/20 06:06 38.2 C H 102 H 30 H 90/54 L 05/30/20 06:00 38.2 C H 100 H 24 05/30/20 05:53 38.2 C H 101 H 35 H 05/30/20 05:52 38.2 C H 100 H 43 H 79/54 L 05/30/20 05:45 38.1 C H 100 H 45 H 05/30/20 05:30 38.2 C H 98 H 42 H 05/30/20 05:16 102 H 05/30/20 05:15 38.4 C H 100 H 37 H 05/30/20 05:09 38.5 C H 106 H 28 H 05/30/20 05:08 38.5 C H 106 H 39 H 66/46 L 05/30/20 05:00 38.6 C H 106 H 23 05/30/20 04:58 119 H 85/46 L 05/30/20 04:48 103 H 41 H 65/47 L 05/30/20 04:45 95 H 19 05/30/20 04:38 99 H 31 H 81/44 L 05/30/20 04:30 100 H 36 H 05/30/20 04:28 96 H 22 65/44 L 05/29/20 23:11 36.5 C 69 20 125/86 05/29/20 22:20 80 05/29/20 18:52 36.6 C 64 19 106/66 Pulse Ox 05/30/20 14:28 97 05/30/20 14:20 96 05/30/20 14:16 99 05/30/20 14:10 99 05/30/20 14:08 98 05/30/20 10:22 98 05/30/20 08:00 99 05/30/20 07:00 96 05/30/20 06:45 94 05/30/20 06:37 100 05/30/20 06:30 98 05/30/20 06:21 95 05/30/20 06:15 95 05/30/20 06:06 93 05/30/20 06:00 95 05/30/20 05:53 95 05/30/20 05:52 95 05/30/20 05:45 97 05/30/20 05:30 98 05/30/20 05:16 05/30/20 05:15 95 05/30/20 05:09 95 05/30/20 05:08 95 05/30/20 05:00 95 05/30/20 04:58 92 05/30/20 04:48 95 05/30/20 04:45 96 05/30/20 04:38 95 05/30/20 04:30 95 05/30/20 04:28 92 05/29/20 23:11 95 05/29/20 22:20 05/29/20 18:52 96 Pain Intensity Bilateral Medial Scrotal: Pain Intensity: 0 Transfer of Care Handoff Completed per policy Notes Mental Status: alert / awake / arousable Patient Amnestic to Procedure: Yes Nausea / Vomiting: adequately controlled Pain: adequately controlled Airway Patency, RR, SpO2: see Notes below BP & HR: stable & adequate Hydration State: stable & adequate Anesthetic Complications: no major complications apparent Notes: pt left intubated due to preop resp distress - stable on vent
[2020-05-30 15:18] LABS: Calcium 7.3 mg/dl (8.5-10.1); Creatinine Clr Calc Pharmacy 50.8 ml/min; Est GFR (Non-African American) 42.3
[2020-05-30 15:57] LABS: iSTAT Arterial Blood Gas HCO3 17 meg/L (19-24); iSTAT Arterial Blood Gas pCO2 50 mmHg (35-46); iSTAT Arterial Blood Gas pH 7.14 (7.35-7.45); iSTAT Arterial Blood Gas pO2 91 mmHg (80-95); iSTAT Carbon Dioxide 19 mmol/L (24-31); iSTAT FiO2 60 %; iSTAT Site Art Line
[2020-05-30 16:29] LABS: BUN Creatinine Ratio 22.8 (10-20); Calcium 7.6 mg/dl (8.5-10.1); Creatinine Clr Calc Pharmacy 49.9 ml/min; Est GFR (Non-African American) 41.4; Magnesium 1.7 mg/dl (1.8-2.4); Phosphorus 7.3 mg/dl (2.5-4.9); Potassium 5.2 mmol/L (3.5-5.1)
[2020-05-30 16:30] LABS: Hematocrit (blood only) 42.6 % (42-52); Hemoglobin 13.9 g/dL (14.0-18.0); Mean Corpuscular Hemoglobin 37.9 pg (25-34); Mean Corpuscular Hgb Conc 32.6 g/dL (32-36); Mean Corpuscular Volume 116.1 fL (80-100); Mean Platelet Volume 11.9 fL (7.4-10.4); Platelet Count 237 K/uL (130-400); RDW Coefficient of Variation 15.8 % (11.5-14.5); RDW Standard Deviation 67.5 fL (36.4-46.3); Red Blood Count 3.67 M/uL (4.7-6.1); White Blood Count 29.52 K/uL (4.8-10.8)
[2020-05-30 16:33] LABS: Basophils # (auto) 0.01 K/uL (0-0.2); Echinocytes 1+; Immature Granulocytes # (auto) 0.27 K/uL (0.00-0.02); Immature Granulocytes % (auto) 0.9 %; Lymphocytes % (auto) 2.4 %; Macrocytosis Present; Monocytes # (auto) 0.89 K/uL (0.11-0.59); Neutrophils # (auto) 27.65 K/uL (1.4-6.5); Neutrophils % (auto) 93.7 %; Polychromasia 1+
[2020-05-30 16:50] LABS: iSTAT Arterial Blood Gas HCO3 15 meg/L (19-24); iSTAT Arterial Blood Gas pCO2 30 mmHg (35-46); iSTAT Arterial Blood Gas pH 7.31 (7.35-7.45); iSTAT Arterial Blood Gas pO2 68 mmHg (80-95); iSTAT Carbon Dioxide 16 mmol/L (24-31); iSTAT FiO2 50 %; iSTAT Site Art Line
[2020-05-30] MEDS ORDERED: ICU ELECTROLYTE REPLACEMENT PROTOCOL PRN (17:13)
[2020-05-30] MEDS ORDERED: FENTANYL BOLUS FROM BAG IV PRN (17:30)
[2020-05-30] MEDS ORDERED: fentaNYL DRIP 1,250 MCG/250 ML BAG IV PRN (17:30)
[2020-05-30] MEDS ORDERED: Nursing to Pharmacy Communication SCH ×2 (17:45→22:00)
[2020-05-30] MEDS ORDERED: MAGNESIUM SULFATE / D5W 1 GM/100 ML BAG IV SCH (18:00)
[2020-05-30] MEDS: MAGNESIUM SULFATE / D5W 1 GM/100 ML BAG IV SCH ×3 (18:01→22:04)
[2020-05-30 21:33] LABS: BUN Creatinine Ratio 23.7 (10-20); Calcium 7.1 mg/dl (8.5-10.1); Creatinine Clr Calc Pharmacy 49.4 ml/min; Est GFR (African American) 47.4; Est GFR (Non-African American) 40.9; Magnesium 2.2 mg/dl (1.8-2.4); Phosphorus 6.9 mg/dl (2.5-4.9); Potassium 4.8 mmol/L (3.5-5.1)
[2020-05-30] MEDS ORDERED: VANCOMYCIN HCL 1,500 MG in SODIUM CHLORIDE 0.9% 500 ML IV ONE (22:00)
[2020-05-31] MEDS: PIPERACILLIN/TAZOBACTAM 4.5 GM in DEXTROSE 5% 100 ML IV SCH ×3 (01:58→17:25)
[2020-05-31] MEDS: propofoL 1,000 MG/100 ML VIAL IV SCH (02:40)
[2020-05-31 04:48] LABS: Hematocrit (blood only) 37.6 % (42-52); Mean Corpuscular Hemoglobin 36.8 pg (25-34); Mean Corpuscular Hgb Conc 31.9 g/dL (32-36); Mean Corpuscular Volume 115.3 fL (80-100); Mean Platelet Volume 11.9 fL (7.4-10.4); Platelet Count 227 K/uL (130-400); RDW Coefficient of Variation 15.9 % (11.5-14.5); RDW Standard Deviation 66.6 fL (36.4-46.3); Red Blood Count 3.26 M/uL (4.7-6.1); White Blood Count 28.71 K/uL (4.8-10.8)
[2020-05-31 05:04] LABS: iSTAT Art Bld Gas pCO2 Correct 30 mmHg (35-46); iSTAT Art Bld Gas pH Corrected 7.299 (7.35-7.45); iSTAT Arterial Blood Gas HCO3 15 meg/L (19-24); iSTAT Arterial Blood Gas pCO2 29 mmHg (35-46); iSTAT Arterial Blood Gas pO2 94 mmHg (80-95); iSTAT Arterial Blood Gas pO2 C 96; iSTAT Carbon Dioxide 15 mmol/L (24-31); iSTAT FiO2 30 %; iSTAT Hematocrit 38 % (42-52); iSTAT Hemoglobin 12.9 g/dl (14.0-18.0); iSTAT Potassium 4.6 mmol/L (3.3-5.0); iSTAT Site Art Line; iSTAT Sodium 137 mmol/L (135-144)
[2020-05-31 05:14] LABS: Albumin Level 0.9 gm/dl (3.4-5.0); BUN Creatinine Ratio 29.6 (10-20); Bilirubin Direct 4.9 mg/dl (0-0.2); Bilirubin,Total 5.8 mg/dl (0.2-1); Calcium 6.4 mg/dl (8.5-10.1); Creatinine Clr Calc Pharmacy 58.8 ml/min; Est GFR (African American) 58.6; Est GFR (Non-African American) 50.5; Phosphorus 6.3 mg/dl (2.5-4.9); Potassium 4.4 mmol/L (3.5-5.1); Total Protein 4.1 gm/dl (6.4-8.2)
[2020-05-31] MEDS ORDERED: CARBOHYDRATES FOR HYPOGLYCEMIA PO PRN (05:17)
[2020-05-31] MEDS ORDERED: DEXTROSE 50% 50 ML SYRINGE IV PRN (05:17)
[2020-05-31] MEDS ORDERED: GLUCOSE 10 TABS/TUBE PO PRN (05:17)
[2020-05-31] MEDS ORDERED: GLUCOSE 40% GEL 15 GM TUBE PO PRN (05:17)
[2020-05-31] MEDS ORDERED: GLUCAGON FOR INJ 1 MG VIAL SQ PRN (05:17)
[2020-05-31 05:18] LABS: Basophils # (auto) 0.02 K/uL (0-0.2); Basophils % (auto) 0.1 %; Echinocytes 1+; Eosinophils # (auto) 0.02 K/uL (0-0.5); Eosinophils % (auto) 0.1 %; Immature Granulocytes # (auto) 0.22 K/uL (0.00-0.02); Immature Granulocytes % (auto) 0.8 %; Lymphocytes # (auto) 0.85 K/uL (1.2-3.4); Macrocytosis Present; Monocytes # (auto) 1.04 K/uL (0.11-0.59); Monocytes % (auto) 3.6 %; Neutrophils # (auto) 26.56 K/uL (1.4-6.5); Neutrophils % (auto) 92.4 %
[2020-05-31] MEDS ORDERED: PHARMACY GLYCEMIC MGMT CONSULT PRN (05:31)
[2020-05-31] MEDS ORDERED: Nursing to Pharmacy Communication SCH ×2 (05:45→07:00)
[2020-05-31] MEDS ORDERED: INSULIN GLARGINE SOLOSTAR 100 UNITS/ML 3 ML PEN SC ONE (06:00)
[2020-05-31] MEDS: NOREPINEPHRINE BIT INJ 8 MG in DEXTROSE 5% 500 ML IV SCH ×2 (06:01→21:25)
[2020-05-31] MEDS: INSULIN ASPART 100 UNITS/ML 3 ML PEN SC SCH ×3 (06:02→17:26)
[2020-05-31] MEDS: SODIUM CHLORIDE 0.9% 1000ML 1,000 ML IV SCH ×2 (06:03→17:26)
[2020-05-31] MEDS ORDERED: SODIUM BICARB 8.4% INJ 50 MEQ/50 ML SYR IV STA (07:28)
[2020-05-31] MEDS ORDERED: MAGNESIUM SULFATE / D5W 1 GM/100 ML BAG IV SCH (07:30)
--- NOTE | 2020-05-31 07:56 | Hospitalist Progress Note ---
Date of Service May 31, 2020 Assessment & Plan (1) Rupture of bowel: Patient acutely decompensated in the production supv hours of 05/30 he was sent to the ICU with a fever hypotension and required pressor support. CT scan of the abdomen pelvis shows free air with concern for perforated sigmoid diverticulitis. Surgery discussed this with the family and decided to pursue surgical intervention here at [facility]. Patient underwent exploratory lap repair of ruptured viscus and colostomy placement on 05/30. Patient remains seriously ill has been extubated and tapering off pressors. Showing gram- positive cocci in chains in the blood and gram-negative bacilli in the blood Patient with signs of sepsis with the above listed fever hypotension elevated procalcitonin elevated lactic acid Vancomycin and Zosyn, cultures were taken (2) Acute metabolic encephalopathy: Patient is sedated and ventilated. 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 remains on high-dose thiamine IV for prevention of Wernicke's encephalopathy. VBGs w/o hypercarbia. TSH, B12 wnl. ammonia wnl. 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 Patient previously was on steroids these have been discontinued in the postoperative period Hep c RNa is negative (4) Abdominal pain: now with perforated bowel, suspect sigmoid diverticuli Ostomy was placed. Follow significantly tender on 05/31/2020 previously C diff negative, stool cx negative Patient had 2 L of ascites in his abdomen upon surgical entrance portal vein dopplers neg for PVT of note - esophageal varices were seen on CT abdomen. pt has stable hgb at this point (5) Ischemic cardiomyopathy: EF 40-45% on echo this admission - now with diagnosis of systolic heart failure holding coreg and lisinopril with lower blood pressure (6) Systolic CHF: acute/chronic ef 40-45% (7) Acute respiratory failure with hypoxia: now with respiratory distress from metabolic acidosis and sepsis patient is extubated but respiratory status is tentative (8) Alcohol withdrawal: (9) Alcohol dependence: cont high-dose thiamine, folic acid, concern for Korsakoffs syndrome was drinking 30 beers/day pre-hospitalization (10) Dysphagia: speech recommend pureed diet since mental status is questionable p.o. intake is also Severe protein calorie malnutrition with an albumin less than 1 CT head w/o stroke on 2 occasions MRI brain without stroke, done on 05/23 (11) Muscle weakness: likely from his significant illness, (12) DVT prophylaxis: Heparin subcu for DVT prevention cont PT, OT if able to participate Patient is seriously ill and survival will be in question (13) Tobacco use disorder: nicoderm patch daily (14) Depression: needs Rx once mentation improved Admission and Anticipated Discharge Date Admission Date: May 11, 2020 Subjective Patient is extubated he is delirious he does not follow commands he is a very tender abdomen to examination Review of Systems Review of Systems: Unobtainable due to cognitive status Physical Exam Physical Exam: The patient appeared seriously ill he is awake and moaning spontaneously moving extremities Vital signs as documented. Treating off blood pressure port Head exam is normocephalic atraumatic he is jaundiced and has icterus Neck is without JVD, thyromegaly, or carotid bruits. Lungs are coarse bilaterally diminished at the bases Cardiac exam, Rhythm is regular.. No murmurs, rubs or gallops. Abdominal absent bowel sounds colostomy is present is markedly tender and slightly distended Extremities are 1-2+ edematous and both pedal pulses are normal. Neurologic exam guarded but responsive Skin is with various bruises but no rashes Results & Data Results & Data ([facility]) Vital Signs (Past 12 Hours) Vital Signs Temp Pulse Resp BP Pulse Ox 05/31/20 07:13 20 100 05/31/20 06:33 99.1 F 73 79/46 L 99 05/31/20 06:31 99.1 F 70 99 05/31/20 06:30 99.1 F 74 100 05/31/20 06:15 99.1 F 71 99 05/31/20 06:00 99.1 F 70 100 05/31/20 05:45 99.0 F 73 99 05/31/20 05:31 99.0 F 73 98/56 L 100 05/31/20 05:30 99.0 F 71 100 05/31/20 05:15 99.0 F 72 100 05/31/20 05:00 99.0 F 70 100 09/12/20 04:50 69 19 100 05/31/20 04:45 99.1 F 68 100 05/31/20 04:31 99.1 F 69 85/54 L 99 05/31/20 04:30 99.1 F 66 100 05/31/20 04:15 99.1 F 67 100 05/31/20 04:00 99.1 F 74 100 05/31/20 03:45 99.0 F 71 100 05/31/20 03:31 99.0 F 72 100/61 99 05/31/20 03:30 99.0 F 69 100 05/31/20 03:15 98.8 F 72 98 05/31/20 03:00 98.8 F 72 100 05/31/20 02:45 98.8 F 73 99 05/31/20 02:31 98.8 F 72 108/70 100 05/31/20 02:30 98.8 F 72 99 05/31/20 02:15 98.8 F 71 100 05/31/20 02:00 98.6 F 69 100 05/31/20 01:58 67 18 98 05/31/20 01:45 98.6 F 68 99 05/31/20 01:30 98.6 F 68 98/62 L 100 05/31/20 01:15 98.6 F 70 99 05/31/20 01:00 98.6 F 68 98 05/31/20 00:47 98.8 F 68 79/50 L 98 05/31/20 00:45 98.8 F 68 98 05/31/20 00:30 98.8 F 70 100 05/31/20 00:15 98.8 F 72 99 05/31/20 00:00 98.8 F 71 98 05/30/20 23:45 98.8 F 72 99 05/30/20 23:30 98.8 F 70 90/61 L 97 05/30/20 23:15 98.8 F 68 97 05/30/20 23:00 98.8 F 67 97 05/30/20 22:50 68 19 100 05/30/20 22:45 98.8 F 69 99 05/30/20 22:30 99.0 F 68 83/55 L 98 05/30/20 22:15 99.0 F 67 100 05/30/20 22:00 99.0 F 67 100 05/30/20 21:45 99.0 F 70 100 05/30/20 21:30 99.0 F 70 89/54 L 100 05/30/20 21:15 99.1 F 72 99 05/30/20 21:00 99.1 F 71 100 05/30/20 20:45 99.1 F 70 99 05/30/20 20:30 99.1 F 72 85/54 L 99 05/30/20 20:15 99.3 F 72 99 05/30/20 20:00 99.3 F 72 99 PG Care Time/CCT Total # of Minutes Spent Total Time Spent with Patient: Total time spent is greater than 50% in coordina tion of care (as documented) at patient's floor/unit and/or counseling patient: Coding Level of Care Code 66175 Subseq Hosp Care Lvl 3 Diagnoses Rupture of bowel K63.1 Acute metabolic encephalopathy G93.41 Acute alcoholic hepatitis K70.10 Abdominal pain R10.13 Abdominal location: epigastric Ischemic cardiomyopathy I25.5 Systolic CHF I50.20 Acute respiratory failure with hypoxia J96.01 Alcohol withdrawal F10.239 Alcohol dependence F10.229 Complication of substance-induced condition: with unspecified complication Substance use status: with intoxication Dysphagia R13.10 Dysphagia type: unspecified Muscle weakness M62.81 DVT prophylaxis Z29.9 Tobacco use disorder F17.200 Depression F32.9 (1) Alcohol dependence Complication of substance-induced condition: with unspecified complication Substance use status: with intoxication Qualified Code(s): F10.229 - Alcohol dependence with intoxication, unspecified (2) Dysphagia Dysphagia type: unspecified Qualified Code(s): R13.10 - Dysphagia, unspecified (3) Abdominal pain Abdominal location: epigastric Qualified Code(s): R10.13 - Epigastric pain
--- NOTE | 2020-05-31 08:08 | Anesthesiology Progress Note ---
Date of Service May 31, 2020 Anesthesia Post Procedure Vital Signs Vital Signs: Temp Pulse Pulse Resp BP BP Pulse Ox 05/31/20 07:13 20 100 05/31/20 06:33 37.3 C 73 79/46 L 99 05/31/20 06:31 37.3 C 70 99 05/31/20 06:30 37.3 C 74 100 05/31/20 06:15 37.3 C 71 99 05/31/20 06:00 37.3 C 70 100 05/31/20 05:45 37.2 C 73 99 05/31/20 05:31 37.2 C 73 98/56 L 100 05/31/20 05:30 37.2 C 71 100 05/31/20 05:15 37.2 C 72 100 05/31/20 05:00 37.2 C 70 100 05/31/20 04:50 69 19 100 05/31/20 04:45 37.3 C 68 100 05/31/20 04:31 37.3 C 69 85/54 L 99 05/31/20 04:30 37.3 C 66 100 05/31/20 04:15 37.3 C 67 100 05/31/20 04:00 37.3 C 74 100 05/31/20 03:45 37.2 C 71 100 05/31/20 03:31 37.2 C 72 100/61 99 05/31/20 03:30 37.2 C 69 100 05/31/20 03:15 37.1 C 72 98 05/31/20 03:00 37.1 C 72 100 05/31/20 02:45 37.1 C 73 99 05/31/20 02:31 37.1 C 72 108/70 100 05/31/20 02:30 37.1 C 72 99 05/31/20 02:15 37.1 C 71 100 05/31/20 02:00 37.0 C 69 100 05/31/20 01:58 67 18 98 05/31/20 01:45 37.0 C 68 99 05/31/20 01:30 37.0 C 68 98/62 L 100 05/31/20 01:15 37.0 C 70 99 05/31/20 01:00 37.0 C 68 98 05/31/20 00:47 37.1 C 68 79/50 L 98 05/31/20 00:45 37.1 C 68 98 05/31/20 00:30 37.1 C 70 100 05/31/20 00:15 37.1 C 72 99 05/31/20 00:00 37.1 C 71 98 05/30/20 23:45 37.1 C 72 99 05/30/20 23:30 37.1 C 70 90/61 L 97 05/30/20 23:15 37.1 C 68 97 05/30/20 23:00 37.1 C 67 97 05/30/20 22:50 68 19 100 05/30/20 22:45 37.1 C 69 99 05/30/20 22:30 37.2 C 68 83/55 L 98 05/30/20 22:15 37.2 C 67 100 05/30/20 22:00 37.2 C 67 100 05/30/20 21:45 37.2 C 70 100 05/30/20 21:30 37.2 C 70 89/54 L 100 05/30/20 21:15 37.3 C 72 99 05/30/20 21:00 37.3 C 71 100 05/30/20 20:45 37.3 C 70 99 05/30/20 20:30 37.3 C 72 85/54 L 99 05/30/20 20:15 37.4 C 72 99 05/30/20 20:00 37.4 C 72 99 05/30/20 19:45 37.5 C 72 05/30/20 19:30 86/56 L 05/30/20 19:28 37.6 C H 74 05/30/20 19:23 37.6 C H 76 25 H 05/30/20 19:18 37.6 C H 74 05/30/20 19:15 37.6 C H 75 05/30/20 19:08 37.6 C H 74 100 05/30/20 19:03 37.7 C H 75 100 05/30/20 19:00 37.7 C H 76 100 05/30/20 18:00 37.9 C H 83 05/30/20 17:47 38.0 C H 83 90/59 L 05/30/20 17:42 38.0 C H 85 87/62 L 05/30/20 17:37 38.0 C H 87 84/64 L 100 05/30/20 17:32 38.0 C H 86 84/61 L 100 05/30/20 17:27 38.0 C H 86 97/67 L 99 05/30/20 17:22 38.0 C H 85 89/64 L 99 05/30/20 17:17 38.0 C H 88 89/64 L 99 05/30/20 17:12 38.0 C H 86 86/72 L 97 05/30/20 17:07 38.0 C H 87 92/69 L 99 05/30/20 17:02 38.0 C H 87 89/60 L 99 05/30/20 17:00 38.0 C H 86 97 05/30/20 16:57 38.0 C H 83 87/62 L 99 05/30/20 16:52 37.9 C H 87 88/60 L 97 05/30/20 16:47 37.9 C H 86 89/64 L 95 05/30/20 16:44 87 28 H 96 05/30/20 16:42 37.9 C H 87 100/75 100 05/30/20 16:37 37.9 C H 87 90/65 L 96 05/30/20 16:32 37.9 C H 87 85/71 L 95 05/30/20 16:27 37.9 C H 87 94/66 L 95 05/30/20 16:22 37.8 C H 88 90/66 L 93 05/30/20 16:17 37.8 C H 88 88/65 L 95 05/30/20 16:12 37.8 C H 88 88/68 L 93 05/30/20 16:07 37.8 C H 89 95/65 L 95 05/30/20 16:02 37.8 C H 89 97/63 L 96 05/30/20 16:00 37.8 C H 88 98 05/30/20 15:57 37.7 C H 90 92/68 L 95 05/30/20 15:52 37.7 C H 90 94/68 L 93 05/30/20 15:47 37.7 C H 89 97/68 L 97 05/30/20 15:42 37.7 C H 90 99/79 L 96 05/30/20 15:37 37.7 C H 89 105/72 97 05/30/20 15:32 37.6 C H 89 106/80 98 05/30/20 15:27 37.6 C H 90 102/78 99 05/30/20 15:22 37.5 C 89 114/77 98 05/30/20 15:15 37.5 C 90 99 05/30/20 15:00 37.4 C 93 H 99 05/30/20 14:45 37.2 C 91 H 98 05/30/20 14:30 37.1 C 87 97 05/30/20 14:28 37.3 C 87 12 122/84 97 05/30/20 14:20 37.3 C 86 12 117/76 96 05/30/20 14:16 86 12 99 05/30/20 14:10 37.2 C 91 H 14 102/74 99 05/30/20 14:08 37.0 C 86 12 117/77 98 05/30/20 10:22 38.1 C H 92 H 26 H 82/62 L 98 Pain Intensity Bilateral Medial Scrotal: Pain Intensity: 0 Notes Mental Status: see notes below Pain: adequately controlled Airway Patency, RR, SpO2: stable & adequate BP & HR: stable & adequate Hydration State: stable & adequate Notes: Pt was intubated and on the ventilator Pt on propofol: 15 mcg/kig/min Fentanyl: 50 mcg/hr Vasopressin 0.04 un/min Norepi: 0.05 mcg/kg/min VSS at this point.
[2020-05-31] MEDS: FOLIC ACID 1 MG in SYRINGE 9.8 ML IV SCH (08:20)
[2020-05-31] MEDS: PANTOprazole 40 MG in SYRINGE 0 ML IV SCH ×2 (08:20→21:00)
[2020-05-31] MEDS: NICOTINE 21 MG/24 HR TDSY TD SCH (08:21)
[2020-05-31] MEDS: THIAMINE HCL 200 MG in SODIUM CHLORIDE 0.9% 50 ML IV SCH ×2 (08:22→21:00)
--- NOTE | 2020-05-31 08:58 | XRay Report ---
XR chest 1V portable CLINICAL HISTORY: Respiratory failure. COMPARISON STUDY: Chest radiograph May 30, 2020. FINDINGS: Tip of endotracheal tube is 4.8 cm above the juan daniel. Right internal jugular central line re star in place. Lung volumes are diminished. This is unchanged. Interstitial thickening has slightly improved. There is mild left basilar opacity. No pneumothorax or pleural effusion is noted. Mild card iomegaly is noted. IMPRESSION: 1. Tip of endotracheal tube 4.8 cm above the juan daniel. 2. Interval improvement in pulmonary vascular congestion. 3. Mild bibasilar opacities. ACT 112: Negative or not required by law. Electronically signed by: Corey Abreu M.D. 05/31/2020 8:57 AM
[2020-05-31] MEDS: VASOPRESSIN 20 UNITS in 0.9 % SODIUM CHLORIDE 100 ML IV SCH (09:35)
--- NOTE | 2020-05-31 09:36 | Critical Care Progress Note ---
Date of Service May 31, 2020 Assessment & Plan (1) Septic shock: (2) Systolic CHF: (3) Abdominal pain: (4) Tachypnea: (5) Sepsis: (6) Admitted to intensive care unit: Reason Critically Ill: 59-year-old male here with a pMHx. significant for alcoholism, cirrhosis, and hepatitis C., who presented with AMS and dyspnea and who was under ICU care for airway monitoring, and hypotension. 24-hour events: The patient is remained hemodynamically stable off pressors. We significantly decreased his benzodiazepines with improvement in his level of encephalopathy and delirium. He remains intermittently tachypneic. No fevers. Update given to yesterday. Discussed on multidisciplinary rounds today Recommendations: Neuro - Toxic metabolic encephalopathy: I think this is because of hepatic encephalopathy along with sepsis that the patient came in with Patients does not follow command Aspiration precautions Continue with 1 is to 1 Cardiac - Titrate down vasopressors to keep map greater than 65 Respiratory - Intubated 05/30/2020 in the OR. Trial of extubation today GI - Hepatic failure due to alcohol abuse. Completed course of N-acetylcysteine. Patient was initially on pentoxifylline but he was not able to take p.o. medication ABLA changed to prednisone on 05/24/2020. Discriminant factor initially was high it has been trending down. Given that the patient had perforated sigmoid diverticulitis would hold off on steroids. No evidence of ongoing bleeding. Case management following and once the patien t's mental status is appropriate we will discuss options for patient and family Patient has severe protein calorie malnutrition with albumin level less than 1. RENAL/LYTES - Likely prerenal from hypotension, improving Monitor BUN/creatinine Avoid nephrotoxic medications Strict ins and outs - -strict in and out ENDO - - no concerns right now HEME - -hemoglobin stable monitor H&H -WBC trending down -Status post thrombocytopenia ID - Initially on admission patient completed the course of azithromycin and Rocephin. 05/30/2020 patient developed perforated sigmoid diverticulitis Continue with pseudomonal and anaerobic coverage. 05/31/2020 blood culture came out positive for gram-negative bacilli as well as gram-positive bacilli in chains, urine is also growing gram-positive cocci Follow-up sensitivity Continue with antibiotics [place] was changed on 05/30/2020 INTEGUMENTARY - - no acute concerns PSYCH - - patient history concerning for severe depression and would likely benefit from outpatient management --Prophylaxis VTE: Heparin GI: Protonix Lines:right IJ central, right femoral radial Diet: N.p.o. Overall prognosis is poor. Plan: In/out: +2757 mL, urine output 2.3 L AB.3 Titrate down vasopressors to map of 65. Trial of extubation today. Patient does not have good mental status to begin with, chances of reintubation are higher. High anion gap, Delta-delta: Less than 1 Likely sec to metabolic acidosis plus non-gap Acidosis is likely from lactic acidosis, non-gap could be from NUBIA I will give the patient 2 A of bicarb. Patient is hyperphosphatemia could be from the rectosigmoid colon. CPK was within normal limit. T bili AST both are trending down. Resume feeding once cleared by GI. I have personally spent 43 minutes of critical care time in the direct management of this patient. This is a life/limb threatening event. This includes time spent evaluating patient, direct bedside care, chart review, placing orders, interpretation of diagnostic studies, discussion with consultants, patient, and family members, as well as other required patient management activities. This time is exclusive of all separately billable procedures, and teaching time and separate from and in addition to any other critical care service time. Please note the above document was generated using voice recognition software. It may contain grammatical, syntax or spelling errors. (7) AMS (altered mental status): (8) Liver cirrhosis: (9) Pneumonia: (10) Acute metabolic encephalopathy: (11) Acute dyspnea: (12) Alcohol abuse: (13) Jaundice: (14) Acute alcoholic hepatitis: Admission and Anticipated Discharge Date Admission Date: May 11, 2020 Subjective Patient seen and examined at bedside. No acute distress, no adverse events overnight On 05/30/2020 patient went for laparotomy was found to have ruptured diverticulitis status post colostomy placement Patient was on propofol 15, fentanyl 50 at the time of examination NIF greater than -26. Afebrile On Levophed at 0.03 as well as vasopressin 0.04 at the time of examination. Review of Systems Review of Systems: Unobtainable due to cognitive status and Unobtainable due to endotracheal tube Physical Exam Physical Exam: Constitutional: No acute distress HEENT: PERRLA, sluggish pupillary, scleral icterus Respiratory system: Decreased air entry bilaterally, mild crackles bilateral lower lobes, no wheeze, no rhonchi CVS: S1-S2 positive, no murmurs or gallops, distant heart sounds Abdomen: Tender, no rebound, midline dressing present, VICKY drainage present, distended not tense, decreased bowel sounds, positive colostomy Extremities: +2 pulses bilaterally radialis/ dorsalis pedis, no cyanosis, +2 edema bilateral lower extremity as well as upper extremity, anasarca. Neuro: unable to assess, positive gag, positive corneal Psych: Unable to assess G/U: Positive [place] Skin: no rashes, warm and dry Lymphatic: no cervical or axillary lymphadenopathy Results & Data Results & Data ([facility]) Vital Signs (Past 12 Hours) Vital Signs Temp Pulse Resp BP Pulse Ox 05/31/20 07:13 20 05/31/20 06:33 37.3 C 73 79/46 L 05/31/20 06:31 37.3 C 70 05/31/20 06:30 37.3 C 74 05/31/20 06:15 37.3 C 71 05/31/20 06:00 37.3 C 70 05/31/20 05:45 37.2 C 73 05/31/20 05:31 37.2 C 73 98/56 L 05/31/20 05:30 37.2 C 71 05/31/20 05:15 37.2 C 72 05/31/20 05:00 37.2 C 70 05/31/20 04:50 69 19 05/31/20 04:45 37.3 C 68 05/31/20 04:31 37.3 C 69 85/54 L 05/31/20 04:30 37.3 C 66 05/31/20 04:15 37.3 C 67 05/31/20 04:00 37.3 C 74 05/31/20 03:45 37.2 C 71 05/31/20 03:31 37.2 C 72 100/61 99 05/31/20 03:30 37.2 C 69 05/31/20 03:15 37.1 C 72 98 05/31/20 03:00 37.1 C 72 05/31/20 02:45 37.1 C 73 99 05/31/20 02:31 37.1 C 72 108/70 100 05/31/20 02:30 37.1 C 72 99 05/31/20 02:15 37.1 C 71 100 05/31/20 02:00 37.0 C 69 100 05/31/20 01:58 67 18 98 05/31/20 01:45 37.0 C 68 99 05/31/20 01:30 37.0 C 68 98/62 L 100 05/31/20 01:15 37.0 C 70 99 05/31/20 01:00 37.0 C 68 98 05/31/20 00:47 37.1 C 68 79/50 L 98 05/31/20 00:45 37.1 C 68 98 05/31/20 00:30 37.1 C 70 100 05/31/20 00:15 37.1 C 72 99 05/31/20 00:00 37.1 C 71 98 05/30/20 23:45 37.1 C 72 99 05/30/20 23:30 37.1 C 70 90/61 L 97 05/30/20 23:15 37.1 C 68 97 05/30/20 23:00 37.1 C 67 97 05/30/20 22:50 68 19 100 05/30/20 22:45 37.1 C 69 99 05/30/20 22:30 37.2 C 68 83/55 L 98 05/30/20 22:15 37.2 C 67 100 05/30/20 22:00 37.2 C 67 100 05/30/20 21:45 37.2 C 70 100 05/31/20 04:41 05/31/20 04:41 Coding Level of Care Code Critical Care 1st 30-74 mins Diagnoses Septic shock A41.9; R65.21 Systolic CHF I50.20 Abdominal pain R10.13 Abdominal location: epigastric Tachypnea R06.82 Sepsis A41.9 Admitted to intensive care unit Z78.9 AMS (altered mental status) R41.82 Liver cirrhosis K74.60 Pneumonia J18.9 Acute metabolic encephalopathy G93.41 Acute dyspnea R06.00 Alcohol abuse F10.10 Jaundice R17 Acute alcoholic hepatitis K70.10 Time Spent (min) 43 (1) Abdominal pain Abdominal location: epigastric Qualified Code(s): R10.13 - Epigastric pain
--- NOTE | 2020-05-31 13:52 | Surgery Progress Note ---
Date of Service May 31, 2020 Assessment & Plan (1) Rupture of bowel: Postoperative day #1 status post Saloni procedure for perforated sigmoid diverticulitis. Patient was able to be extubated Would continue with VICKY drainage to try to prevent intra-abdominal significant distention that could lead to compartment syndrome Colostomy beginning to function with a small amount of stool but would continue to keep n.p.o. for now Prognosis is poor and patient with severe intra-abdominal process on top of cirrhosis Continue supportive measures Admission and Anticipated Discharge Date Admission Date: May 11, 2020 Subjective Postoperative day #1 status post exploratory laparotomy with sigmoid resection and formation of colostomy and Saloni pouch The patient was able to be extubated today He does not answer questions Having a lot of VICKY output but would expect that considering his cirrhosis and ascites Colostomy has serosanguineous material with a very small amount of stool Physical Exam Gastrointestinal (Abdomen): Inspection/Auscultation: + abdomen distended Percussion/Palpation: + abdomen tender (Incisional mostly); abdomen not rigid Results & Data ([facility]) Vital Signs (Past 12 Hours) Vital Signs Temp Pulse Resp BP Pulse Ox 05/31/20 12:03 102/65 05/31/20 11:00 37.3 C 103 H 94/66 L 95 05/31/20 10:00 37.2 C 105 H 70/56 L 93 05/31/20 09:00 37.2 C 101 H 85/66 L 05/31/20 08:00 37.4 C 69 81/57 L 100 05/31/20 07:13 20 100 05/31/20 07:00 37.4 C 70 76/51 L 100 05/31/20 06:33 37.3 C 73 79/46 L 99 05/31/20 06:31 37.3 C 70 99 05/31/20 06:30 37.3 C 74 100 05/31/20 06:15 37.3 C 71 99 05/31/20 06:00 37.3 C 70 100 05/31/20 05:45 37.2 C 73 99 05/31/20 05:31 37.2 C 73 98/56 L 100 05/31/20 05:30 37.2 C 71 100 05/31/20 05:15 37.2 C 72 100 05/31/20 05:00 37.2 C 70 05/31/20 04:50 69 19 05/31/20 04:45 37.3 C 68 05/31/20 04:31 37.3 C 69 85/54 L 99 05/31/20 04:30 37.3 C 66 05/31/20 04:15 37.3 C 67 05/31/20 04:00 37.3 C 74 05/31/20 03:45 37.2 C 71 05/31/20 03:31 37.2 C 72 100/61 99 05/31/20 03:30 37.2 C 69 05/31/20 03:15 37.1 C 72 98 05/31/20 03:00 37.1 C 72 05/31/20 02:45 37.1 C 73 05/31/20 02:31 37.1 C 72 108/70 05/31/20 02:30 37.1 C 72 99 05/31/20 02:15 37.1 C 71 05/31/20 02:00 37.0 C 69 05/31/20 01:58 67 18 98
--- NOTE | 2020-05-31 13:55 | Pharmacy Report ---
Pharmacy Abx Dose Short Note - Date of Service May 31, 2020 - Assessment & Plan Assessment 59 year old M receiving empiric vancomycin and Zosyn for treatment of septic shock secondary to perforated sigmoid diverticulitis Day # 2 of antimicrobial therapy. Patient with NUBIA - SCr seems to have peaked yesterday at 1.8 mg/dL (down to 1.51 mg/dL today). Urine output of ~900 mL yesterday. Will continue to follow renal function. Significant increase in WBC yesterday (14 -> 29 K, 28.7K today). Microbiology: * Blood #1 (05/30): gram positive cocci in chains * Blood #2 (05/30): gram negative bacilli * Urine (05/26): gram positive cocci * MRSA nasal swab (05/30): negative Plan Vancomycin * Random level of vancomycin of 17.7 mcg/mL today at 1154 * Will start vancomycin 1500 mg (15 mg/kg) IV q18h * Goal trough level for this empiric indication : 15 to 20 mcg/mL * Ordered empirically - will order follow-up trough if patient is to remain on vancomycin beyond 48 hours Zosyn * 4.5 g IV q8h appropriate based on BMI, renal function, and illness severity Pharmacy will continue to follow and will adjust dose/frequency as necessary. Thank you.
[2020-05-31] MEDS: VANCOMYCIN HCL 1,500 MG in SODIUM CHLORIDE 0.9% 500 ML IV SCH (14:43)
--- NOTE | 2020-05-31 15:05 | Pharmacy Report ---
Pharmacy Glycemic Short Note 2 - Date of Service May 31, 2020 - Glycemic Short BSG Results (Last 24 hours): 05/30/20 05/30/20 05/30/20 14:35 14:53 15:57 Glucose 132 H 144 H POC Glucose 124 H POC Glucose (other) 05/30/20 05/31/20 05/31/20 21:01 00:08 04:41 Glucose 206 H 226 H POC Glucose POC Glucose (other) 210 H 05/31/20 05/31/20 05:58 11:37 Glucose POC Glucose 115 H POC Glucose (other) 231 H OUTPATIENT ANTIDIABETIC REGIMEN: * n/a * A1c ? ASSESSMENT: * Lobo is a 59 yo admitted on 05/11 for acute alcoholic hepatitis * He was transferred to the ICU on 05/30 due to fever and hypotension requiring pressor support. He is POD #1 s/p exploratory laparotomy with sigmoid resection and formation of colostomy and Saloni pouch. * He is not on any anti-diabetic agents as an outpatient, unknown A1c. Potentially hyperglycemia due to stress, pressors, etc. * Patient was extubated today with pressors being tapered down. * Lobo was given a one time dose of Lantus 20 units. I will hold off on further basal until fasting BSG results on 06/01. * I will loosen Novolog orders per prednisone was d/c'ed and propofol and fentanyl drips are currently off. PLAN FOR INPATIENT GLYCEMIC CONTROL: * Basal insulin * Lantus 20 units SQ this morning * Further orders tbd on 06/01 * Bolus insulin - loosen * NovoLog per scale ACHS or Q6hrs while NPO * Goal Range: Low 140 mg/dL - High 180 mg/dL * Correction Factor: 25 mg/dL/unit * Nutritional / Prandial insulin per carb ratio of 1 unit per 8 grams CHO consumed
[2020-05-31] MEDS: MoRPHine SULFATE 2 MG/ML CARP IV PRN (15:37)
[2020-05-31] MEDS: LORazepam 0.5 MG/1 ML VIAL IV PRN (17:38)
[2020-06-01] MEDS: INSULIN ASPART 100 UNITS/ML 3 ML PEN SC SCH ×4 (00:35→18:09)
[2020-06-01] MEDS: PIPERACILLIN/TAZOBACTAM 4.5 GM in DEXTROSE 5% 100 ML IV SCH ×3 (02:35→21:16)
[2020-06-01] MEDS: MoRPHine SULFATE 2 MG/ML CARP IV PRN ×4 (02:35→22:39)
[2020-06-01 04:55] LABS: Mean Corpuscular Hgb Conc 33.3 g/dL (32-36); Mean Platelet Volume 11.4 fL (7.4-10.4); Platelet Count 184 K/uL (130-400)
[2020-06-01 05:28] LABS: Echinocytes 1+; Eosinophils # (manual) 0.17 K/uL (0-0.5); Eosinophils % (manual) 0.9 %; Hematocrit (blood only) 35.4 % (42-52); Hemoglobin 11.8 g/dL (14.0-18.0); Macrocytosis Present; Mean Corpuscular Hemoglobin 37.5 pg (25-34); Mean Corpuscular Volume 112.4 fL (80-100); Monocytes # (manual) 0.32 K/uL (0.11-0.59); Monocytes % (manual) 1.7 %; Neutrophils % (manual) 97.4 %; RDW Coefficient of Variation 15.7 % (11.5-14.5); RDW Standard Deviation 63.9 fL (36.4-46.3); Red Blood Count 3.15 M/uL (4.7-6.1); White Blood Count 18.89 K/uL (4.8-10.8)
[2020-06-01 06:17] LABS: BUN Creatinine Ratio 39.8 (10-20); Bilirubin Direct 4.9 mg/dl (0-0.2); Bilirubin,Total 5.5 mg/dl (0.2-1); Calcium 7.1 mg/dl (8.5-10.1); Creatinine Clr Calc Pharmacy 85.4 ml/min; Est GFR (African American) 91.9; Est GFR (Non-African American) 79.3; Phosphorus 2.9 mg/dl (2.5-4.9); Potassium 3.9 mmol/L (3.5-5.1); Total Protein 4.3 gm/dl (6.4-8.2)
[2020-06-01] MEDS: SODIUM CHLORIDE 0.9% 1000ML 1,000 ML IV SCH (06:17)
[2020-06-01] MEDS ORDERED: MAGNESIUM SULFATE / D5W 1 GM/100 ML BAG IV ONE (06:30)
[2020-06-01] MEDS: POTASSIUM CHLORIDE / WTR 10 MEQ/100 ML PLCT IV SCH ×4 (06:42→09:43)
[2020-06-01] MEDS: propofoL 1,000 MG/100 ML VIAL IV SCH (07:52)
[2020-06-01] MEDS: VANCOMYCIN HCL 1,500 MG in SODIUM CHLORIDE 0.9% 500 ML IV SCH (07:56)
[2020-06-01] MEDS: HEPARIN SOD 5,000 UNIT/0.5 ML VIAL SQ SCH ×2 (07:57→21:16)
[2020-06-01] MEDS: NICOTINE 21 MG/24 HR TDSY TD SCH (07:57)
[2020-06-01] MEDS: FOLIC ACID 1 MG in SYRINGE 9.8 ML IV SCH (07:57)
[2020-06-01] MEDS: PANTOprazole 40 MG in SYRINGE 0 ML IV SCH ×2 (07:58→21:15)
[2020-06-01] MEDS: THIAMINE HCL 200 MG in SODIUM CHLORIDE 0.9% 50 ML IV SCH ×2 (07:58→21:17)
--- NOTE | 2020-06-01 09:24 | Critical Care Progress Note ---
Date of Service June 01, 2020 Assessment & Plan (1) Septic shock: (2) Systolic CHF: (3) Abdominal pain: (4) Tachypnea: (5) Sepsis: (6) Admitted to intensive care unit: Reason Critically Ill: 59-year-old male here with a pMHx. significant for alcoholism, cirrhosis, and hepatitis C., who presented with AMS and dyspnea and who was under ICU care for airway monitoring, and hypotension. 24-hour events: The patient is remained hemodynamically stable off pressors. We significantly decreased his benzodiazepines with improvement in his level of encephalopathy and delirium. He remains intermittently tachypneic. No fevers. Update given to yesterday. Discussed on multidisciplinary rounds today Recommendations: Neuro - Toxic metabolic encephalopathy: I think this is because of hepatic encephalopathy along with sepsis that the patient came to the ICU on 05/30/2020 It is improving and going back to the baseline prior to him coming to the ICU. Aspiration precautions Continue with 1 is to 1 Cardiac - Off vasopressors since 05/31/2020 Respiratory - Intubated 05/30/2020 in the OR. Extubated 05/31/2020 On nasal cannula saturating well GI - Hepatic failure due to alcohol abuse. Completed course of N-acetylcysteine. Patient was initially on pentoxifylline but he was not able to take p.o. medication pentoxifylline changed to prednisone on 05/24/2020. Discriminant factor initially was high it has been trending down. Given that the patient had perforated sigmoid diverticulitis would hold off on steroids. No evidence of ongoing bleeding. Case management following and once the patient's mental status is appropriate we will discuss options for patient and family Patient has severe protein calorie malnutrition with albumin level less than 1. RENAL/LYTES - Likely prerenal from hypotension, improving Monitor BUN/creatinine Avoid nephrotoxic medications Strict ins and outs - -strict in and out ENDO - - no concerns right now HEME - -hemoglobin stable monitor H&H -WBC trending down -Status post thrombocytopenia ID - Initially on admission patient completed the course of azithromycin and Roceph in. 05/30/2020 patient developed perforated sigmoid diverticulitis Continue with pseudomonal and anaerobic coverage. 05/31/2020 blood culture came out positive for gram-negative bacilli as well as Streptococcus, urine is also growing gram-positive cocci only 7000 which is nonsignificant. Follow-up sensitivity Continue with antibiotics [place]wood was changed on 05/30/2020 INTEGUMENTARY - - no acute concerns PSYCH - - patient history concerning for severe depression and would likely benefit from outpatient management --Prophylaxis VTE: Heparin GI: Protonix Lines:right IJ central, right femoral radial Diet: N.p.o. Overall prognosis is poor. Plan: In/out: -571 mL, urine output 3.9 L WBC trending down. Creatinine is improving. T bili is trending down. Alk phos increased just a little bit nonsignificant. Blood culture growing gram-negative bacilli follow-up sensitivity continue new with Zosyn. Patient has stage II decubitus ulcer. DC [place] in a.m. DC arterial line if patient's blood pressure is stable till the afternoon. Continue with 1 is to 1 for his encephalopathy. I do not feel that will improve given that he has been in the hospital since 05/11 with no significant improvement in that. VICKY drain is still draining significant amount of serosanguineous fluid. This is most likely patient's ascites. Resume feeding once cleared by GI. Hemoglobin and platelets are stable. Patient is more than 24 hours post surgery. Resume heparin for DVT prophylaxis. I have personally spent 37 minutes of critical care time in the direct management of this patient. This is a life/limb threatening event. This includes time spent evaluating patient, direct bedside care, chart review, placing orders, interpretation of diagnostic studies, discussion with consultants, patient, and family members, as well as other required patient management activities. This time is exclusive of all separately billable procedures, and teaching time and separate from and in addition to any other critical care service time. Please note the above document was generated using voice recognition software. It may contain grammatical, syntax or spelling errors. (7) AMS (altered mental status): (8) Liver cirrhosis: (9) Pneumonia: (10) Acute metabolic encephalopathy: (11) Acute dyspnea: (12) Alcohol abuse: (13) Jaundice: (14) Acute alcoholic hepatitis: Admission and Anticipated Discharge Date Admission Date: May 11, 2020 Subjective Patient seen and examined at bedside. No acute distress, no adverse events overnight. Patient successfully extubated 05/31/2020 Currently on room air saturating well. He is oriented to self. Answers simple questions. Denies any significant abdominal pain. He has has bouts of confusion. Is on 1 is to 1. Afebrile. Off vasopressors since yesterday. Review of Systems Review of Systems: Unobtainable due to cognitive status Physical Exam Physical Exam: Constitutional: No acute distress HEENT: PERRLA, scleral icterus Respiratory system: Decreased air entry bilaterally, mild crackles bilateral lower lobes, no wheeze, no rhonchi CVS: S1-S2 positive, no murmurs or gallops, distant heart sounds Abdomen: Tender, no rebound, midline dressing present, VICKY drainage present, distended not tense, decreased bowel sounds, positive colostomy Extremities: +2 pulses bilaterally radialis/ dorsalis pedis, no cyanosis, +2 edema bilateral lower extremity as well as upper extremity, anasarca. Neuro: Awake alert oriented to self. Patient has bouts of confusion. He needs frequent reorientation Psych: Normal mood and affect G/U: Positive [place]wood Skin: no rashes, warm and dry Lymphatic: no cervical or axillary lymphadenopathy Results & Data Results & Data ([facility]) Vital Signs (Past 12 Hours) Vital Signs Temp Pulse BP Pulse Ox 06/01/20 06:31 37.3 C 89 103/74 96 06/01/20 06:00 37.5 C 92 H 96 06/01/20 05:49 37.5 C 94 H 103/68 94 06/01/20 04:31 37.4 C 91 H 90/71 L 94 06/01/20 04:00 37.4 C 93 H 94 06/01/20 03:31 37.4 C 97 H 105/74 95 06/01/20 02:32 37.4 C 98 H 112/84 93 06/01/20 02:00 37.3 C 85 95 06/01/20 01:31 37.2 C 80 112/77 97 06/01/20 01:00 37.3 C 81 96 06/01/20 00:31 37.3 C 85 120/76 96 06/01/20 00:00 37.3 C 82 96 05/31/20 23:31 37.3 C 88 111/77 95 05/31/20 23:00 37.3 C 91 H 93 05/31/20 22:31 37.1 C 81 111/76 96 05/31/20 22:00 37.1 C 82 95 05/31/20 21:31 37.0 C 84 100/66 96 06/01/20 04:20 06/01/20 04:20 Coding Level of Care Code Critical Care 1st 30-74 mins Diagnoses Septic shock A41.9; R65.21 Systolic CHF I50.20 Abdominal pain R10.13 Abdominal location: epigastric Tachypnea R06.82 Sepsis A41.9 Admitted to intensive care unit Z78.9 AMS (altered mental status) R41.82 Liver cirrhosis K74.60 Pneumonia J18.9 Acute metabolic encephalopathy G93.41 Acute dyspnea R06.00 Alcohol abuse F10.10 Jaundice R17 Acute alcoholic hepatitis K70.10 Time Spent (min) 37 (1) Abdominal pain Abdominal location: epigastric Qualified Code(s): R10.13 - Epigastric pain
[2020-06-01] MEDS: NOREPINEPHRINE BIT INJ 8 MG in DEXTROSE 5% 500 ML IV SCH (11:03)
--- NOTE | 2020-06-01 11:29 | Surgery Progress Note ---
Date of Service June 01, 2020 Assessment & Plan (1) Rupture of bowel: Postoperative day 2 status post Saloni procedure Seems improved today Minimal output from colostomy so would continue n.p.o. for now although peristalsis does seem to be returning White blood cell count decreased Continue IV antibiotics Other supportive measures as per photogrammetrist team Admission and Anticipated Discharge Date Admission Date: May 11, 2020 Subjective Postoperative day 2 status post Saloni procedure for perforated sigmoid diverticulitis. Patient awake and alert today. Answering questions appropriately. Having abdominal pain Minimal output from colostomy 500 cc drained via VICKY of ascites, less bloody today Physical Exam Gastrointestinal (Abdomen): Inspection/Auscultation: + abdomen distended and + abdominal surgical incision (No surrounding erythema) Percussion/Palpation: abdomen soft Does not Results & Data ([facility]) Vital Signs (Past 12 Hours) Vital Signs Temp Pulse BP Pulse Ox 06/01/20 10:00 37.0 C 81 95 06/01/20 09:00 37.0 C 78 91 06/01/20 08:00 37.1 C 81 94 06/01/20 07:00 37.2 C 83 95 06/01/20 06:31 37.3 C 89 103/74 96 06/01/20 06:00 37.5 C 92 H 96 06/01/20 05:49 37.5 C 94 H 103/68 94 06/01/20 04:31 37.4 C 91 H 90/71 L 94 06/01/20 04:00 37.4 C 93 H 94 06/01/20 03:31 37.4 C 97 H 105/74 95 06/01/20 02:32 37.4 C 98 H 112/84 93 06/01/20 02:00 37.3 C 85 95 06/01/20 01:31 37.2 C 80 112/77 97 06/01/20 01:00 37.3 C 81 96 06/01/20 00:31 37.3 C 85 120/76 96 06/01/20 00:00 37.3 C 82 96 05/31/20 23:31 37.3 C 88 111/77 95 Laboratory Results 06/01/20 06/01/20 06/01/20 Range/Units 06:11 04:20 04:20 WBC 18.89 H (4.8-10.8) K/uL RBC 3.15 L (4.7-6.1) M/uL Hgb 11.8 L (14.0-18.0) g/dL Hct 35.4 L (42-52) % MCV 112.4 H (80-100) fL MCH 37.5 H (25-34) pg MCHC 33.3 (32-36) g/dL RDW Std Deviation 63.9 H (36.4-46.3) fL RDW Coeff of Paradise 15.7 H (11.5-14.5) % Plt Count 184 (130-400) K/uL MPV 11.4 H (7.4-10.4) fL Neutrophils % (Manual) 97.4 % Lymphocytes % (Manual) 0.0 % Monocytes % (Manual) 1.7 % Eosinophils % (Manual) 0.9 % Neutrophils # (Manual) 18.40 H (1.4-6.5) K/uL Total Absolute Neuts 18.40 H (1.4-6.5) K/uL Total Abs Lymphocytes 0.00 L (1.2-3.4) K/uL Monocytes # (Manual) 0.32 (0.11-0.59) K/uL Eosinophils # (Manual) 0.17 (0-0.5) K/uL Macrocytosis Present Echinocytes 1+ Sodium 143 (136-145) mmol/L Potassium 3.9 (3.5-5.1) mmol/L Chloride 115 H (98-107) mmol/L Carbon Dioxide 19 L (21-32) mmol/L Anion Gap 8.0 (3-11) BUN 41 H (7-18) mg/dl Creatinine 1.04 (0.6-1.4) mg/dl Est Cr Clr Drug Dosing 85.4 ml/min Est GFR ( Amer) 91.9 Est GFR (Non-Af Amer) 79.3 BUN/Creatinine Ratio 39.8 H (10-20) Glucose 89 (70-99) mg/dl POC Glucose (70-99) mg/dl POC Glucose (other) 90 (70-99) mg/dl Calcium 7.1 L (8.5-10.1) mg/dl Phosphorus 2.9 D (2.5-4.9) mg/dl Magnesium 2.0 (1.8-2.4) mg/dl Total Bilirubin 5.5 H (0.2-1) mg/dl Direct Bilirubin 4.9 H (0-0.2) mg/dl AST 100 H (15-37) U/L ALT 54 (12-78) U/L Alkaline Phosphatase 121 H (45-117) U/L Total Protein 4.3 L (6.4-8.2) gm/dl Albumin 1.0 L (3.4-5.0) gm/dl Random Vancomycin mcg/ml 06/01/20 05/31/20 05/31/20 Range/Units 00:28 17:24 11:54 WBC (4.8-10.8) K/uL RBC (4.7-6.1) M/uL Hgb (14.0-18.0) g/dL Hct (42-52) % MCV (80-100) fL MCH (25-34) pg MCHC (32-36) g/dL RDW Std Deviation (36.4-46.3) fL RDW Coeff of [place] (11.5-14.5) % Plt Count (130-400) K/uL MPV (7.4-10.4) fL Neutrophils % (Manual) % Lymphocytes % (Manual) % Monocytes % (Manual) % Eosinophils % (Manual) % Neutrophils # (Manual) (1.4-6.5) K/uL Total Absolute Neuts (1.4-6.5) K/uL Total Abs Lymphocytes (1.2-3.4) K/uL Monocytes # (Manual) (0.11-0.59) K/uL Eosinophils # (Manual) (0-0.5) K/uL Macrocytosis Echinocytes Sodium (136-145) mmol/L Potassium (3.5-5.1) mmol/L Chloride (98-107) mmol/L Carbon Dioxide (21-32) mmol/L Anion Gap (3-11) BUN (7-18) mg/dl Creatinine (0.6-1.4) mg/dl Est Cr Clr Drug Dosing ml/min Est GFR ( Amer) Est GFR (Non-Af Amer) BUN/Creatinine Ratio (10-20) Glucose (70-99) mg/dl POC Glucose 90 (70-99) mg/dl POC Glucose (other) 101 H (70-99) mg/dl Calcium (8.5-10.1) mg/dl Phosphorus (2.5-4.9) mg/dl Magnesium (1.8-2.4) mg/dl Total Bilirubin (0.2-1) mg/dl Direct Bilirubin (0-0.2) mg/dl AST (15-37) U/L ALT (12-78) U/L Alkaline Phosphatase (45-117) U/L Total Protein (6.4-8.2) gm/dl Albumin (3.4-5.0) gm/dl Random Vancomycin 17.7 mcg/ml 05/31/20 Range/Units 11:37 WBC (4.8-10.8) K/uL RBC (4.7-6.1) M/uL Hgb (14.0-18.0) g/dL Hct (42-52) % MCV (80-100) fL MCH (25-34) pg MCHC (32-36) g/dL RDW Std Deviation (36.4-46.3) fL RDW Coeff of [place] (11.5-14.5) % Plt Count (130-400) K/uL MPV (7.4-10.4) fL Neutrophils % (Manual) % Lymphocytes % (Manual) % Monocytes % (Manual) % Eosinophils % (Manual) % Neutrophils # (Manual) (1.4-6.5) K/uL Total Absolute Neuts (1.4-6.5) K/uL Total Abs Lymphocytes (1.2-3.4) K/uL Monocytes # (Manual) (0.11-0.59) K/uL Eosinophils # (Manual) (0-0.5) K/uL Macrocytosis Echinocytes Sodium (136-145) mmol/L Potassium (3.5-5.1) mmol/L Chloride (98-107) mmol/L Carbon Dioxide (21-32) mmol/L Anion Gap (3-11) BUN (7-18) mg/dl Creatinine (0.6-1.4) mg/dl Est Cr Clr Drug Dosing ml/min Est GFR ( Amer) Est GFR (Non-Af Amer) BUN/Creatinine Ratio (10-20) Glucose (70-99) mg/dl POC Glucose 115 H (70-99) mg/dl POC Glucose (other) (70-99) mg/dl Calcium (8.5-10.1) mg/dl Phosphorus (2.5-4.9) mg/dl Magnesium (1.8-2.4) mg/dl Total Bilirubin (0.2-1) mg/dl Direct Bilirubin (0-0.2) mg/dl AST (15-37) U/L ALT (12-78) U/L Alkaline Phosphatase (45-117) U/L Total Protein (6.4-8.2) gm/dl Albumin (3.4-5.0) gm/dl Random Vancomycin mcg/ml
[2020-06-01] MEDS ORDERED: Nursing to Pharmacy Communication SCH (12:30)
[2020-06-01] MEDS: D5W AND 1/2NSS 1,000 ML IV SCH (13:28)
--- NOTE | 2020-06-01 13:49 | Hospitalist Progress Note ---
Date of Service June 01, 2020 Assessment & Plan (1) Rupture of bowel: Patient acutely decompensated in the piecer up hours of 05/30 he was sent to the ICU with a fever hypotension and required pressor support. CT scan of the abdomen pelvis revealed free air with concern for perforated sigmoid diverticulitis. Surgery discussed this with the family and decided to pursue surgical intervention here at [facility]. Patient underwent exploratory lap repair of ruptured viscus and colostomy placement on 05/30. Patient remains seriously ill has been extubated and tapering off pressors. Showing gram- positive cocci in chains in the blood and gram-negative bacilli in the blood Patient with signs of sepsis with the above listed fever hypotension elevated procalcitonin elevated lactic acid Vancomycin and Zosyn, cultures show strep species and gram negatives in blood (2) Acute metabolic encephalopathy: extubated and remains altered, has 1:1. 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 remains on high-dose thiamine IV for prevention of Wernicke's encephalopathy. VBGs w/o hypercarbia. TSH, B12 wnl. ammonia wnl. 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 Patient previously was on steroids these have been discontinued in the postoperative period due to concern for infection Hep c RNa is negative (4) Abdominal pain: now with perforated bowel, suspect sigmoid diverticuli Ostomy was placed. Follow significantly tender on 05/31/2020 previously C diff negative, stool cx negative Patient had 2 L of ascites in his abdomen upon surgical entrance portal vein dopplers neg for PVT of note - esophageal varices were seen on CT abdomen. pt has stable hgb at this point (5) Ischemic cardiomyopathy: EF 40-45% on echo this admission - now with diagnosis of systolic heart failure holding coreg and lisinopril with lower blood pressure (6) Systolic CHF: acute/chronic ef 40-45% (7) Acute respiratory failure with hypoxia: resolved, now extubated still with some supplemental oxygen (8) Alcohol withdrawal: previously received IV ativan while in ICU. the ativan was stopped due to excess sedation in setting of copious use. 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 intake is also Severe protein calorie malnutrition with an albumin less than 1 CT head w/o stroke on 2 occasions MRI brain without stroke, done on 05/23 (11) Muscle weakness: likely from his significant illness, (12) DVT prophylaxis: Heparin subcu for DVT prevention cont PT, OT if able to participate Patient is seriously ill and survival will be in question (13) Tobacco use disorder: previously on nicoderm patch daily (14) Depression: needs Rx once mentation improved Admission and Anticipated Discharge Date Admission Date: May 11, 2020 Subjective pt remains pleasantly confused, he is more conversant and less painful, he remains pleasanlty confused. still with significnat abdominal drain output Review of Systems Review of Systems: Moderate distress and moderate fatigue no headache, blurry or double vision no speech or swallowing issues no chest pain, pressure or palpitations tachypnea but no complaints of shortness of breath abdominal pain and distension, markedly uncomfortable no dysuria, hematuria or frequency no focal joint pain or swelling Skin is jaundice with various aged bruising about his extremities no focal signs of weakness or numbness or does not have gross altered sensation no complaints or anxiety or depression. Physical Exam Physical Exam: The patient appeared moderately ill he is awake and moaning spontaneously moving extremities Vital signs as documented. Treating off blood pressure port Head exam is normocephalic atraumatic he is jaundiced and has icterus Neck is without JVD, thyromegaly, or carotid bruits. Lungs are coarse bilaterally diminished at the bases Cardiac exam, Rhythm is regular.. No murmurs, rubs or gallops. Abdominal absent bowel sounds colostomy is present is less tenderness and distension Extremities are 1-2+ edematous and both pedal pulses are normal. Neurologic exam guarded but responsive Skin is with various bruises but no rashes Results & Data Results & Data ([facility]) Vital Signs (Past 12 Hours) Vital Signs Temp Pulse BP Pulse Ox 06/01/20 12:00 98.6 F 81 94 06/01/20 11:31 98.8 F 80 104/70 93 06/01/20 10:31 99.0 F 80 104/72 94 06/01/20 10:00 98.6 F 81 95 06/01/20 09:00 98.6 F 78 91 06/01/20 08:00 98.8 F 81 94 06/01/20 07:00 99.0 F 83 95 06/01/20 06:31 99.1 F 89 103/74 96 06/01/20 06:00 99.5 F 92 H 96 06/01/20 05:49 99.5 F 94 H 103/68 94 06/01/20 04:31 99.3 F 91 H 90/71 L 94 06/01/20 04:00 99.3 F 93 H 94 06/01/20 03:31 99.3 F 97 H 105/74 95 06/01/20 02:32 99.3 F 98 H 112/84 93 06/01/20 02:00 99.1 F 85 95 PG Care Time/CCT Total # of Minutes Spent Total Time Spent with Patient: Total time spent is greater than 50% in coordination of care (as documented) at patient's floor/unit and/or counseling patient: Coding Level of Care Code 36147 Subseq Hosp Care Lvl 3 Diagnoses Rupture of bowel K63.1 Acute metabolic encephalopathy G93.41 Acute alcoholic hepatitis K70.10 Abdominal pain R10.13 Abdominal location: epigastric Ischemic cardiomyopathy I25.5 Systolic CHF I50.20 Acute respiratory failure with hypoxia J96.01 Alcohol withdrawal F10.239 Alcohol dependence F10.229 Complication of substance-induced condition: with unspecified complication Substance use status: with intoxication Dysphagia R13.10 Dysphagia type: unspecified Muscle weakness M62.81 DVT prophylaxis Z29.9 Tobacco use disorder F17.200 Depression F32.9 (1) Abdominal pain Abdominal location: epigastric Qualified Code(s): R10.13 - Epigastric pain (2) Alcohol dependence Complication of substance-induced condition: with unspecified complication Substance use status: with intoxication Qualified Code(s): F10.229 - Alcohol dependence with intoxication, unspecified (3) Dysphagia Dysphagia type: unspecified Qualified Code(s): R13.10 - Dysphagia, unspecified
[2020-06-01] MEDS ORDERED: HALOPERIDOL LACTATE 5 MG/ML 1 ML VIAL IM STA (20:20)
[2020-06-02] MEDS: INSULIN ASPART 100 UNITS/ML 3 ML PEN SC SCH ×4 (00:38→18:07)
[2020-06-02] MEDS: MoRPHine SULFATE 2 MG/ML CARP IV PRN ×2 (02:39→08:06)
[2020-06-02] MEDS: LORazepam 0.5 MG/1 ML VIAL IV PRN (03:29)
[2020-06-02] MEDS: PIPERACILLIN/TAZOBACTAM 4.5 GM in DEXTROSE 5% 100 ML IV SCH ×3 (04:17→18:06)
[2020-06-02 04:34] LABS: Basophils # (auto) 0.01 K/uL (0-0.2); Basophils % (auto) 0.1 %; Hematocrit (blood only) 36.2 % (42-52); Hemoglobin 12.1 g/dL (14.0-18.0); Immature Granulocytes # (auto) 0.06 K/uL (0.00-0.02); Immature Granulocytes % (auto) 0.4 %; Lymphocytes # (auto) 0.99 K/uL (1.2-3.4); Lymphocytes % (auto) 5.8 %; Mean Corpuscular Hemoglobin 37.9 pg (25-34); Mean Corpuscular Hgb Conc 33.4 g/dL (32-36); Mean Corpuscular Volume 113.5 fL (80-100); Mean Platelet Volume 11.4 fL (7.4-10.4); Monocytes # (auto) 0.81 K/uL (0.11-0.59); Monocytes % (auto) 4.8 %; Neutrophils # (auto) 15.11 K/uL (1.4-6.5); Neutrophils % (auto) 88.9 %; Platelet Count 162 K/uL (130-400); RDW Coefficient of Variation 15.3 % (11.5-14.5); RDW Standard Deviation 64.3 fL (36.4-46.3); Red Blood Count 3.19 M/uL (4.7-6.1); White Blood Count 16.98 K/uL (4.8-10.8)
[2020-06-02] MEDS ORDERED: HALOPERIDOL LACTATE 5 MG/ML 1 ML VIAL IV STA (04:42)
[2020-06-02] MEDS ORDERED: HALOPERIDOL LACTATE 5 MG/ML 1 ML VIAL IM STA ×2 (04:42→20:15)
[2020-06-02 05:01] LABS: BUN Creatinine Ratio 37.6 (10-20); Bilirubin Direct 5.1 mg/dl (0-0.2); Bilirubin,Total 6.3 mg/dl (0.2-1); Calcium 7.2 mg/dl (8.5-10.1); Creatinine Clr Calc Pharmacy 111.1 ml/min; Est GFR (African American) 114.9; Est GFR (Non-African American) 99.2; Magnesium 1.8 mg/dl (1.8-2.4); Phosphorus 2.6 mg/dl (2.5-4.9); Potassium 4.4 mmol/L (3.5-5.1); Total Protein 4.5 gm/dl (6.4-8.2)
[2020-06-02] MEDS ORDERED: MAGNESIUM SULFATE / D5W 1 GM/100 ML BAG IV ONE (05:06)
[2020-06-02 05:08] LABS: Echinocytes 1+
[2020-06-02 06:39] LABS: Estimated Average Glucose 71 mg/dl; Hemoglobin A1C 4.1 % (4.5-5.6)
[2020-06-02] MEDS: D5W AND 1/2NSS 1,000 ML IV SCH (08:14)
[2020-06-02] MEDS: HEPARIN SOD 5,000 UNIT/0.5 ML VIAL SQ SCH ×2 (08:17→20:41)
[2020-06-02] MEDS: NICOTINE 21 MG/24 HR TDSY TD SCH (08:18)
[2020-06-02] MEDS: FOLIC ACID 1 MG in SYRINGE 9.8 ML IV SCH (09:02)
[2020-06-02] MEDS: THIAMINE HCL 200 MG in SODIUM CHLORIDE 0.9% 50 ML IV SCH ×2 (09:02→20:40)
[2020-06-02] MEDS: PANTOprazole 40 MG in SYRINGE 0 ML IV SCH ×2 (09:02→20:39)
--- NOTE | 2020-06-02 09:16 | Critical Care Progress Note ---
Date of Service June 02, 2020 Assessment & Plan (1) Septic shock: Reason Critically Ill: 59-year-old male readmitted to ICU as transfer from floor after being found tachypneic, hypotensive, and tachycardic. Currently being treated for septic shock and requiring vasopressor support. Neuro - AMS: Suspicious for Warnicke's versus acute metabolic encephalopathy versus ICU delirium -Patient's current mental status is consistent with prior examinations on this hospitalization -MRI was unremarkable -Ammonia less than 10 -Continue high-dose thiamine -Start risperidone 1 mg Solutab daily Cardiac - Shockseptic -Echo with EF 45 to 50%, EKG obtained and unremarkable -Troponin 0.05, will trend for now -Tolerated off Levophed -Restarting some antihypertensives -Check EKG today for QTC Respiratory - Acute respiratory failure secondary to postoperative insufficiency: Resolved Tachypnea: Resolved -Continuous monitoring on pulse ox GI - Cirrhosis/acute alcoholic hepatitisunderwent treatment with N-acetylcysteine -Hovering around baseline -Microbiology from abdominal wound reviewed -Continue thiamine, folate, multivitamin -Steroids were discontinued secondary to perforated viscus Perforated viscus postop day 3 -Start clears for nutrition RENAL/LYTES - Continue basal IV fluid until taking adequate p.o. - Indwelling Foleyexchanged for concern for urosepsis and UA pending -Unable to follow commands and needed for hygiene ENDO - No history diabetes or thyroid disease Patient did present with hypoglycemia with glucose 53 on arrival to the ICU, hypoglycemic protocol HEME - H&H stable, monitor ID - Sepsis with associated gram-negative bacteremia -Continue Zosyn day 4 of at least 14 -Repeat blood culture pending LINES/IV ACCESS - Right IJ CVC, A-line: Discontinued, PIV DVT PROPHYLAXIS - SCDs, heparin (2) Systolic CHF: (3) Abdominal pain: (4) Tachypnea: (5) Sepsis: (6) AMS (altered mental status): (7) Liver cirrhosis: (8) Pneumonia: (9) Acute metabolic encephalopathy: (10) Acute dyspnea: (11) Alcohol abuse: (12) Jaundice: (13) Acute alcoholic hepatitis: Admission and Anticipated Discharge Date Admission Date: May 11, 2020 Subjective Patient remains largely confused Review of Systems Review of Systems: Unobtainable due to cognitive status Physical Exam Physical Exam: General: Alert. Pleasantly confused, requesting kiss from bedside nurse. Skin: Warm, dry, Head: Atraumatic Ears, nose, mouth and throat: airway patent Cardiovascular: Normal peripheral perfusion Respiratory: no respiratory distress Gastrointestinal: Non distended, ostomy patent Musculoskeletal: No deformity Results & Data Results & Data ([facility]) Vital Signs (Past 12 Hours) Vital Signs Temp Pulse BP Pulse Ox 06/02/20 06:00 37.1 C 87 92 06/02/20 05:53 37.1 C 88 142/89 H 92 06/02/20 05:32 37.1 C 87 160/102 H 06/02/20 05:00 36.9 C 80 06/02/20 04:32 36.9 C 92 H 155/97 H 96 06/02/20 04:00 36.9 C 82 94 06/02/20 03:37 36.9 C 78 117/88 91 06/02/20 03:31 36.9 C 84 137/103 H 91 06/02/20 03:00 36.8 C 82 95 06/02/20 02:32 36.8 C 82 130/87 94 06/02/20 02:00 36.7 C 72 93 06/02/20 01:31 36.7 C 82 120/93 96 06/02/20 01:00 36.7 C 74 94 06/02/20 00:33 36.8 C 70 137/85 98 06/02/20 00:00 36.9 C 71 93 06/01/20 23:31 36.9 C 72 90/65 L 94 06/01/20 23:00 36.8 C 75 94 06/01/20 22:31 36.9 C 75 106/80 95 06/01/20 22:00 36.9 C 76 94 06/01/20 21:32 37.0 C 77 106/67 94 Laboratory Results 06/02/20 06/02/20 06/02/20 Range/Units 05:57 04:24 04:24 WBC (4.8-10.8) K/uL RBC (4.7-6.1) M/uL Hgb (14.0-18.0) g/dL Hct (42-52) % MCV (80-100) fL MCH (25-34) pg MCHC (32-36) g/dL RDW Std Deviation (36.4-46.3) fL RDW Coeff of [place] (11.5-14.5) % Plt Count (130-400) K/uL MPV (7.4-10.4) fL Immature Gran % (Auto) % Neut % (Auto) % Lymph % (Auto) % [place] % (Auto) % Eos % (Auto) % Baso % (Auto) % Neut # (Auto) (1.4-6.5) K/uL Lymph # (Auto) (1.2-3.4) K/uL [place] # (Auto) (0.11-0.59) K/uL Eos # (Auto) (0-0.5) K/uL Baso # (Auto) (0-0.2) K/uL Immature Gran # (Auto) (0.00-0.02) K/uL Echinocytes Sodium 145 (136-145) mmol/L Potassium 4.4 (3.5-5.1) mmol/L Chloride 117 H (98-107) mmol/L Carbon Dioxide 23 (21-32) mmol/L Anion Gap 5.0 (3-11) BUN 30 H (7-18) mg/dl Creatinine 0.80 (0.6-1.4) mg/dl Est Cr Clr Drug Dosing 111.1 ml/min Est GFR ( Amer) 114.9 Est GFR (Non-Af Amer) 99.2 BUN/Creatinine Ratio 37.6 H (10-20) Glucose 86 (70-99) mg/dl POC Glucose 88 (70-99) mg/dl Estimat Average Glucose 71 mg/dl Hemoglobin A1c 4.1 L (4.5-5.6) % Calcium 7.2 L (8.5-10.1) mg/dl Phosphorus 2.6 (2.5-4.9) mg/dl Magnesium 1.8 (1.8-2.4) mg/dl Total Bilirubin 6.3 H (0.2-1) mg/dl Direct Bilirubin 5.1 H (0-0.2) mg/dl AST 113 H (15-37) U/L ALT 63 (12-78) U/L Alkaline Phosphatase 154 H (45-117) U/L Total Protein 4.5 L (6.4-8.2) gm/dl Albumin 1.0 L (3.4-5.0) gm/dl 09/14/20 09/14/20 09/13/20 Range/Units 04:24 00:31 18:02 WBC 16.98 H (4.8-10.8) K/uL RBC 3.19 L (4.7-6.1) M/uL Hgb 12.1 L (14.0-18.0) g/dL Hct 36.2 L (42-52) % MCV 113.5 H (80-100) fL MCH 37.9 H (25-34) pg MCHC 33.4 (32-36) g/dL RDW Std Deviation 64.3 H (36.4-46.3) fL RDW Coeff of [place] 15.3 H (11.5-14.5) % Plt Count 162 (130-400) K/uL MPV 11.4 H (7.4-10.4) fL Immature Gran % (Auto) 0.4 % Neut % (Auto) 88.9 % Lymph % (Auto) 5.8 % [place] % (Auto) 4.8 % Eos % (Auto) 0.0 % Baso % (Auto) 0.1 % Neut # (Auto) 15.11 H (1.4-6.5) K/uL Lymph # (Auto) 0.99 L (1.2-3.4) K/uL [place] # (Auto) 0.81 H (0.11-0.59) K/uL Eos # (Auto) 0.00 (0-0.5) K/uL Baso # (Auto) 0.01 (0-0.2) K/uL Immature Gran # (Auto) 0.06 H (0.00-0.02) K/uL Echinocytes 1+ Sodium (136-145) mmol/L Potassium (3.5-5.1) mmol/L Chloride (98-107) mmol/L Carbon Dioxide (21-32) mmol/L Anion Gap (3-11) BUN (7-18) mg/dl Creatinine (0.6-1.4) mg/dl Est Cr Clr Drug Dosing ml/min Est GFR ( Amer) Est GFR (Non-Af Amer) BUN/Creatinine Ratio (10-20) Glucose (70-99) mg/dl POC Glucose 91 86 (70-99) mg/dl Estimat Average Glucose mg/dl Hemoglobin A1c (4.5-5.6) % Calcium (8.5-10.1) mg/dl Phosphorus (2.5-4.9) mg/dl Magnesium (1.8-2.4) mg/dl Total Bilirubin (0.2-1) mg/dl Direct Bilirubin (0-0.2) mg/dl AST (15-37) U/L ALT (12-78) U/L Alkaline Phosphatase (45-117) U/L Total Protein (6.4-8.2) gm/dl Albumin (3.4-5.0) gm/dl 06/01/20 Range/Units 11:50 WBC (4.8-10.8) K/uL RBC (4.7-6.1) M/uL Hgb (14.0-18.0) g/dL Hct (42-52) % MCV (80-100) fL MCH (25-34) pg MCHC (32-36) g/dL RDW Std Deviation (36.4-46.3) fL RDW Coeff of [place] (11.5-14.5) % Plt Count (130-400) K/uL MPV (7.4-10.4) fL Immature Gran % (Auto) % Neut % (Auto) % Lymph % (Auto) % [place] % (Auto) % Eos % (Auto) % Baso % (Auto) % Neut # (Auto) (1.4-6.5) K/uL Lymph # (Auto) (1.2-3.4) K/uL [place] # (Auto) (0.11-0.59) K/uL Eos # (Auto) (0-0.5) K/uL Baso # (Auto) (0-0.2) K/uL Immature Gran # (Auto) (0.00-0.02) K/uL Echinocytes Sodium (136-145) mmol/L Potassium (3.5-5.1) mmol/L Chloride (98-107) mmol/L Carbon Dioxide (21-32) mmol/L Anion Gap (3-11) BUN (7-18) mg/dl Creatinine (0.6-1.4) mg/dl Est Cr Clr Drug Dosing ml/min Est GFR ( Amer) Est GFR (Non-Af Amer) BUN/Creatinine Ratio (10-20) Glucose (70-99) mg/dl POC Glucose 81 (70-99) mg/dl Estimat Average Glucose mg/dl Hemoglobin A1c (4.5-5.6) % Calcium (8.5-10.1) mg/dl Phosphorus (2.5-4.9) mg/dl Magnesium (1.8-2.4) mg/dl Total Bilirubin (0.2-1) mg/dl Direct Bilirubin (0-0.2) mg/dl AST (15-37) U/L ALT (12-78) U/L Alkaline Phosphatase (45-117) U/L Total Protein (6.4-8.2) gm/dl Albumin (3.4-5.0) gm/dl Coding Level of Care Code Critical Care 1st 30-74 mins Diagnoses Septic shock A41.9; R65.21 Systolic CHF I50.20 Abdominal pain R10.13 Abdominal location: epigastric Tachypnea R06.82 Sepsis A41.9 AMS (altered mental status) R41.82 Liver cirrhosis K74.60 Pneumonia J18.9 Acute metabolic encephalopathy G93.41 Acute dyspnea R06.00 Alcohol abuse F10.10 Jaundice R17 Acute alcoholic hepatitis K70.10 Time Spent (min) 60 Comment Patient is critically ill due to gram-negative bacteremia. I have personally spent 40 minutes of critical care time in the direct management of this patient. This is a life/limb threatening event. This includes time spent evaluating patient, direct bedside care, chart review, placing orders, interpretation of diagnostic studies, discussion with consultants, patient, and/or family members regarding treatment decisions, as well as other required patient management activities. This time is exclusive of all separately billable procedures, and teaching time and separate from and in addition to any other critical care service time. (1) Abdominal pain Abdominal location: epigastric Qualified Code(s): R10.13 - Epigastric pain
[2020-06-02] MEDS ORDERED: OXYCODONE HCL IR 5 MG TAB (IMMEDIATE RELEASE) PO PRN (09:44)
[2020-06-02] MEDS ORDERED: ACETAMINOPHEN 325 MG TAB PO PRN (09:44)
[2020-06-02] MEDS: RISPERIDONE ODT 1MG PO SCH (10:07)
[2020-06-02] MEDS: MULTIVITAMIN TAB PO SCH (10:07)
--- NOTE | 2020-06-02 12:28 | Electrocardiogram Report ---
Test Reason : Blood Pressure : / mmHG Vent. Rate : 120 BPM Atrial Rate : 120 BPM P-R Int : 140 ms QRS Dur : 082 ms QT Int : 334 ms P-R-T Axes : 031 -54 056 degrees QTc Int : 472 ms Sinus tachycardia Low voltage QRS Left anterior fascicular block Poor R wave progression, consider anterior NE vs. lead placement vs. LVH Abnormal ECG When compared with ECG of 30-MAY-2020 03:37, No significant change was found Confirmed by Jayant Gross [id number]) on 06/02/2020 12:28:42 PM Referred By: REFERRED SELF Confirmed By:Jayant Gross
--- NOTE | 2020-06-02 12:51 | Surgery Progress Note ---
Date of Service June 02, 2020 Assessment & Plan (1) Rupture of bowel: Postoperative day #3 status post Saloni procedure for perforated sigmoid diverticulitis More alert and awake today Colostomy function has not returned but has good bowel sounds Would go slow with clear liquids Further supportive measures as per banquet pilot team Admission and Anticipated Discharge Date Admission Date: May 11, 2020 Subjective Much more awake and alert today Having abdominal pain Colostomy has not put much out Clear liquids ordered by banquet pilot service Continues to put 5 to 600 cc a shift from VICKY drain but it is straw-colored Physical Exam Gastrointestinal (Abdomen): Inspection/Auscultation: + abdomen distended Percussion/Palpation: + abdomen tender and abdomen soft Colostomy around most of the edges pink, no output noted today Bowel sounds present but do not reach activity level to be considered completely normal, pitch is normal Results & Data ([facility]) Vital Signs (Past 12 Hours) Vital Signs Temp Pulse BP Pulse Ox 06/02/20 12:13 37.8 C H 120 H 123/88 96 06/02/20 12:00 37.9 C H 119 H 95 06/02/20 11:32 37.8 C H 121 H 131/98 93 06/02/20 11:00 37.6 C H 119 H 94 06/02/20 10:31 37.9 C H 117 H 152/117 H 96 06/02/20 10:00 37.8 C H 115 H 95 06/02/20 09:57 37.8 C H 113 H 138/107 H 95 06/02/20 09:06 37.7 C H 112 H 93 06/02/20 09:05 37.6 C H 113 H 158/112 H 93 06/02/20 09:00 37.6 C H 112 H 95 06/02/20 08:31 37.6 C H 108 H 158/112 H 94 06/02/20 08:00 37.4 C 103 H 95 06/02/20 07:31 37.4 C 96 H 126/94 94 06/02/20 07:00 37.2 C 99 H 96 06/02/20 06:00 37.1 C 87 92 06/02/20 05:53 37.1 C 88 142/89 H 92 06/02/20 05:32 37.1 C 87 160/102 H 06/02/20 05:00 36.9 C 80 09/14/20 04:32 36.9 C 92 H 155/97 H 96 06/02/20 04:00 36.9 C 82 94 06/02/20 03:37 36.9 C 78 117/88 91 06/02/20 03:31 36.9 C 84 137/103 H 91 06/02/20 03:00 36.8 C 82 95 06/02/20 02:32 36.8 C 82 130/87 94 06/02/20 02:00 36.7 C 72 93 06/02/20 01:31 36.7 C 82 120/93 96 06/02/20 01:00 36.7 C 74 94 Laboratory Results 06/02/20 06/02/20 06/02/20 Range/Units 11:06 05:57 04:24 WBC (4.8-10.8) K/uL RBC (4.7-6.1) M/uL Hgb (14.0-18.0) g/dL Hct (42-52) % MCV (80-100) fL MCH (25-34) pg MCHC (32-36) g/dL RDW Std Deviation (36.4-46.3) fL RDW Coeff of [place] (11.5-14.5) % Plt Count (130-400) K/uL MPV (7.4-10.4) fL Immature Gran % (Auto) % Neut % (Auto) % Lymph % (Auto) % [place] % (Auto) % Eos % (Auto) % Baso % (Auto) % Neut # (Auto) (1.4-6.5) K/uL Lymph # (Auto) (1.2-3.4) K/uL [place] # (Auto) (0.11-0.59) K/uL Eos # (Auto) (0-0.5) K/uL Baso # (Auto) (0-0.2) K/uL Immature Gran # (Auto) (0.00-0.02) K/uL Echinocytes Sodium (136-145) mmol/L Potassium (3.5-5.1) mmol/L Chloride (98-107) mmol/L Carbon Dioxide (21-32) mmol/L Anion Gap (3-11) BUN (7-18) mg/dl Creatinine (0.6-1.4) mg/dl Est Cr Clr Drug Dosing ml/min Est GFR ( Amer) Est GFR (Non-Af Amer) BUN/Creatinine Ratio (10-20) Glucose (70-99) mg/dl POC Glucose 100 H 88 (70-99) mg/dl Estimat Average Glucose 71 mg/dl Hemoglobin A1c 4.1 L (4.5-5.6) % Calcium (8.5-10.1) mg/dl Phosphorus (2.5-4.9) mg/dl Magnesium (1.8-2.4) mg/dl Total Bilirubin (0.2-1) mg/dl Direct Bilirubin (0-0.2) mg/dl AST (15-37) U/L ALT (12-78) U/L Alkaline Phosphatase (45-117) U/L Total Protein (6.4-8.2) gm/dl Albumin (3.4-5.0) gm/dl 06/02/20 06/02/20 06/02/20 Range/Units 04:24 04:24 00:31 WBC 16.98 H (4.8-10.8) K/uL RBC 3.19 L (4.7-6.1) M/uL Hgb 12.1 L (14.0-18.0) g/dL Hct 36.2 L (42-52) % MCV 113.5 H (80-100) fL MCH 37.9 H (25-34) pg MCHC 33.4 (32-36) g/dL RDW Std Deviation 64.3 H (36.4-46.3) fL RDW Coeff of [place] 15.3 H (11.5-14.5) % Plt Count 162 (130-400) K/uL MPV 11.4 H (7.4-10.4) fL Immature Gran % (Auto) 0.4 % Neut % (Auto) 88.9 % Lymph % (Auto) 5.8 % [place] % (Auto) 4.8 % Eos % (Auto) 0.0 % Baso % (Auto) 0.1 % Neut # (Auto) 15.11 H (1.4-6.5) K/uL Lymph # (Auto) 0.99 L (1.2-3.4) K/uL [place] # (Auto) 0.81 H (0.11-0.59) K/uL Eos # (Auto) 0.00 (0-0.5) K/uL Baso # (Auto) 0.01 (0-0.2) K/uL Immature Gran # (Auto) 0.06 H (0.00-0.02) K/uL Echinocytes 1+ Sodium 145 (136-145) mmol/L Potassium 4.4 (3.5-5.1) mmol/L Chloride 117 H (98-107) mmol/L Carbon Dioxide 23 (21-32) mmol/L Anion Gap 5.0 (3-11) BUN 30 H (7-18) mg/dl Creatinine 0.80 (0.6-1.4) mg/dl Est Cr Clr Drug Dosing 111.1 ml/min Est GFR ( Amer) 114.9 Est GFR (Non-Af Amer) 99.2 BUN/Creatinine Ratio 37.6 H (10-20) Glucose 86 (70-99) mg/dl POC Glucose 91 (70-99) mg/dl Estimat Average Glucose mg/dl Hemoglobin A1c (4.5-5.6) % Calcium 7.2 L (8.5-10.1) mg/dl Phosphorus 2.6 (2.5-4.9) mg/dl Magnesium 1.8 (1.8-2.4) mg/dl Total Bilirubin 6.3 H (0.2-1) mg/dl Direct Bilirubin 5.1 H (0-0.2) mg/dl AST 113 H (15-37) U/L ALT 63 (12-78) U/L Alkaline Phosphatase 154 H (45-117) U/L Total Protein 4.5 L (6.4-8.2) gm/dl Albumin 1.0 L (3.4-5.0) gm/dl 06/01/20 Range/Units 18:02 WBC (4.8-10.8) K/uL RBC (4.7-6.1) M/uL Hgb (14.0-18.0) g/dL Hct (42-52) % MCV (80-100) fL MCH (25-34) pg MCHC (32-36) g/dL RDW Std Deviation (36.4-46.3) fL RDW Coeff of [place] (11.5-14.5) % Plt Count (130-400) K/uL MPV (7.4-10.4) fL Immature Gran % (Auto) % Neut % (Auto) % Lymph % (Auto) % [place] % (Auto) % Eos % (Auto) % Baso % (Auto) % Neut # (Auto) (1.4-6.5) K/uL Lymph # (Auto) (1.2-3.4) K/uL [place] # (Auto) (0.11-0.59) K/uL Eos # (Auto) (0-0.5) K/uL Baso # (Auto) (0-0.2) K/uL Immature Gran # (Auto) (0.00-0.02) K/uL Echinocytes Sodium (136-145) mmol/L Potassium (3.5-5.1) mmol/L Chloride (98-107) mmol/L Carbon Dioxide (21-32) mmol/L Anion Gap (3-11) BUN (7-18) mg/dl Creatinine (0.6-1.4) mg/dl Est Cr Clr Drug Dosing ml/min Est GFR ( Amer) Est GFR (Non-Af Amer) BUN/Creatinine Ratio (10-20) Glucose (70-99) mg/dl POC Glucose 86 (70-99) mg/dl Estimat Average Glucose mg/dl Hemoglobin A1c (4.5-5.6) % Calcium (8.5-10.1) mg/dl Phosphorus (2.5-4.9) mg/dl Magnesium (1.8-2.4) mg/dl Total Bilirubin (0.2-1) mg/dl Direct Bilirubin (0-0.2) mg/dl AST (15-37) U/L ALT (12-78) U/L Alkaline Phosphatase (45-117) U/L Total Protein (6.4-8.2) gm/dl Albumin (3.4-5.0) gm/dl
[2020-06-02] MEDS: OXYCODONE HCL IR 5 MG TAB (IMMEDIATE RELEASE) PO PRN (14:05)
--- NOTE | 2020-06-02 14:18 | Hospitalist Progress Note ---
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 CT scan of the abdomen pelvis revealed free air with concern for perforated sigmoid diverticulitis. Surgery discussed this with the family and decided to pursue surgical intervention here at [facility]. Patient underwent exploratory lap repair of ruptured viscus and colostomy placement on 05/30. patient tapered off pressors, extubated and breathing well, no further signs of septic shock minimal output from ostomy, allowed liquids for now mild abdominal pain but nothing severe continue Vancomycin and Zosyn, cultures show strep species and gram negatives in blood WBC remains elevated prognosis is guarded, will need to address nutrition, the issue is that NGT was attempted in the OR but it could not be placed (2) Acute metabolic encephalopathy: extubated and remains altered, has 1:1. 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 remains on high-dose thiamine IV for prevention of Wernicke's encephalopathy. VBGs w/o hypercarbia. TSH, B12 wnl. ammonia wnl. MRI brain 05/23, no stroke, no tumor, no acute changes (3) Acute alcoholic hepatitis: Cirrhosis on imaging s/p NAC protocol. Patient previously was on steroids these have been discontinued in the postoperative period due to concern for infection Hep c RNa is negative bilirubin slowly coming down, still elevated (4) Abdominal pain: due to perforated bowel, suspect sigmoid diverticuli Ostomy was placed. mild pain today previously C diff negative, stool cx negative Patient had 2 L of ascites in his abdomen upon surgical entrance portal vein dopplers neg for PVT of note - esophageal varices were seen on CT abdomen. pt has stable hgb at this point (5) Ischemic cardiomyopathy: EF 40-45% on echo this admission - now with diagnosis of systolic heart failure holding coreg and lisinopril with lower blood pressure try to resume them once pressure elevated (6) Systolic CHF: acute/chronic ef 40-45% (7) Acute respiratory failure with hypoxia: resolved, now extubated still with some supplemental oxygen (8) Alcohol withdrawal: previously received IV ativan while in ICU. the ativan was stopped due to excess sedation in setting of copious use. 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 intake is also Severe protein calorie malnutrition with an albumin less than 1 CT head w/o stroke on 2 occasions MRI brain without stroke, done on 05/23 will need to address nutrition (11) Muscle weakness: likely from his significant illness, now with two separate ICU stays (12) DVT prophylaxis: Heparin subcu for DVT prevention cont PT, OT if able to participate Patient is seriously ill and survival will be in question even though he is recovering from surgery, doubtful he will return to his prior state of being independent he will need prolonged physical rehab unsure if his mental state will ever return to normal (13) Tobacco use disorder: previously on nicoderm patch daily (14) Depression: needs Rx once mentation improved Admission and Anticipated Discharge Date Admission Date: May 11, 2020 Subjective patient stable this morning, generalized complaints of some abdominal pain but nothing more discussed with ICU staff reviewed chart, reviewed labs Review of Systems Review of Systems: All systems reviewed & are unremarkable except as noted in Subjective Constitutional: + fatigue and + weakness; no fever, no chills and no sweats Respiratory: no cough and no dyspnea Cardiovascular: no chest pain and no edema Gastrointestinal: + abdominal pain; no nausea, no vomiting, no constipation and no diarrhea/loose stools Musculoskeletal: + muscle weakness Neurologic: + confusion Physical Exam Constitutional: well developed, well nourished and + ill appearing (appears older than age); no acute distress and + not well groomed Eyes: PERRL, conjunctivae normal, anicteric sclerae ENMT: external ear and nose normal, oropharynx normal Neck: trachea midline, no thyromegaly Respiratory: normal respiratory effort, lungs clear to auscultation Cardiovascular: RRR, no murmur, no edema Gastrointestinal (Abdomen): Inspection/Auscultation: normal bowel sounds and + abdominal surgical incision; + abdomen abnormal to inspection and abdomen not distended Percussion/Palpation: abdomen soft; abdomen nontender, no guarding and abdomen not rigid ostomy Musculoskeletal: no cyanosis or clubbing, extremities motor strength 5/5 Skin: normal turgor and + jaundice; no rashes and no wound Neurologic: normal touch/pain/proprioception, CN's II-XI intact bilaterally and awake; no focal motor deficits Psychiatric: Orientation: alert, oriented to person and cooperative; + not oriented to place and + not oriented to time Lymphatic: no cervical or axillary lymphadenopathy Results & Data Results & Data ([facility]) Vital Signs (Past 12 Hours) Vital Signs Temp Pulse BP Pulse Ox 06/02/20 12:13 37.8 C H 120 H 123/88 96 06/02/20 12:00 37.9 C H 119 H 95 06/02/20 11:32 37.8 C H 121 H 131/98 93 06/02/20 11:00 37.6 C H 119 H 94 06/02/20 10:31 37.9 C H 117 H 152/117 H 96 06/02/20 10:00 37.8 C H 115 H 95 06/02/20 09:57 37.8 C H 113 H 138/107 H 95 06/02/20 09:06 37.7 C H 112 H 93 06/02/20 09:05 37.6 C H 113 H 158/112 H 93 06/02/20 09:00 37.6 C H 112 H 95 06/02/20 08:31 37.6 C H 108 H 158/112 H 94 06/02/20 08:00 37.4 C 103 H 95 06/02/20 07:31 37.4 C 96 H 126/94 94 06/02/20 07:00 37.2 C 99 H 96 06/02/20 06:00 37.1 C 87 92 06/02/20 05:53 37.1 C 88 142/89 H 92 06/02/20 05:32 37.1 C 87 160/102 H 06/02/20 05:00 36.9 C 80 06/02/20 04:32 36.9 C 92 H 155/97 H 96 06/02/20 04:00 36.9 C 82 94 06/02/20 03:37 36.9 C 78 117/88 91 06/02/20 03:31 36.9 C 84 137/103 H 91 06/02/20 03:00 36.8 C 82 95 06/02/20 02:32 36.8 C 82 130/87 94 Laboratory Results Laboratory Results - last 24 hr 06/01/20 06/02/2006/02/20 18:02 00:31 04:24 WBC 16.98 H RBC 3.19 L Hgb 12.1 L Hct 36.2 L MCV 113.5 H MCH 37.9 H MCHC 33.4 RDW Std Deviation 64.3 H RDW Coeff of [place] 15.3 H Plt Count 162 MPV 11.4 H Immature Gran % (Auto) 0.4 Neut % (Auto) 88.9 Lymph % (Auto) 5.8 [place] % (Auto) 4.8 Eos % (Auto) 0.0 Baso % (Auto) 0.1 Neut # (Auto) 15.11 H Lymph # (Auto) 0.99 L [place] # (Auto) 0.81 H Eos # (Auto) 0.00 Baso # (Auto) 0.01 Immature Gran # (Auto) 0.06 H Echinocytes 1+ Sodium Potassium Chloride Carbon Dioxide Anion Gap BUN Creatinine Est Cr Clr Drug Dosing Est GFR ( Amer) Est GFR (Non-Af Amer) BUN/Creatinine Ratio Glucose POC Glucose 86 91 Estimat Average Glucose Hemoglobin A1c Calcium Phosphorus Magnesium Total Bilirubin Direct Bilirubin AST ALT Alkaline Phosphatase Total Protein Albumin 06/02/20 06/02/20 06/02/20 04:24 04:24 05:57 WBC RBC Hgb Hct MCV MCH MCHC RDW Std Deviation RDW Coeff of [place] Plt Count MPV Immature Gran % (Auto) Neut % (Auto) Lymph % (Auto) [place] % (Auto) Eos % (Auto) Baso % (Auto) Neut # (Auto) Lymph # (Auto) Canadian # (Auto) Eos # (Auto) Baso # (Auto) Immature Gran # (Auto) Echinocytes Sodium 145 Potassium 4.4 Chloride 117 H Carbon Dioxide 23 Anion Gap 5.0 BUN 30 H Creatinine 0.80 Est Cr Clr Drug Dosing 111.1 Est GFR ( Amer) 114.9 Est GFR (Non-Af Amer) 99.2 BUN/Creatinine Ratio 37.6 H Glucose 86 POC Glucose 88 Estimat Average Glucose 71 Hemoglobin A1c 4.1 L Calcium 7.2 L Phosphorus 2.6 Magnesium 1.8 Total Bilirubin 6.3 H Direct Bilirubin 5.1 H AST 113 H ALT 63 Alkaline Phosphatase 154 H Total Protein 4.5 L Albumin 1.0 L 06/02/20 11:06 WBC RBC Hgb Hct MCV MCH MCHC RDW Std Deviation RDW Coeff of [place] Plt Count MPV Immature Gran % (Auto) Neut % (Auto) Lymph % (Auto) Canadian % (Auto) Eos % (Auto) Baso % (Auto) Neut # (Auto) Lymph # (Auto) [place] # (Auto) Eos # (Auto) Baso # (Auto) Immature Gran # (Auto) Echinocytes Sodium Potassium Chloride Carbon Dioxide Anion Gap BUN Creatinine Est Cr Clr Drug Dosing Est GFR ( Amer) Est GFR (Non-Af Amer) BUN/Creatinine Ratio Glucose POC Glucose 100 H Estimat Average Glucose Hemoglobin A1c Calcium Phosphorus Magnesium Total Bilirubin Direct Bilirubin AST ALT Alkaline Phosphatase Total Protein Albumin Medications Administered Current Inpatient Medications Acetaminophen (Acetaminophen 325 Mg Tab) 650 mg PO Q8H PRN PRN Reason: Fever/Mild Pain (Pain 1,2,3) Stop: 07/02/20 09:43 Albuterol (Albut/Ipratrop 3mg/0.5mg Neb 3 Ml Vial) 3 ml NEB Q4R PRN PRN Reason: wheeze Stop: 06/13/20 10:59 Ascorbic Acid (Ascorbic Acid 500 Mg Tab) 500 mg PO QAM [facility] Stop: 07/03/20 08:59 Benzocaine (Benzocaine 20% Aer Spr 82.5 Gm Can) 1 appln EXT UD PRN PRN Reason: Pain Stop: 06/14/20 11:17 Last Admin: 05/15/20 16:00 Dose: 1 appln Documented by: Calamine/Phenol (Menthol-Zinc Oxide 360 Appln/120 Gm Tube) 1 appln EXT UD [facility] Stop: 06/14/20 19:59 Last Admin: 05/15/20 20:52 Dose: 1 appln Documented by: Dextrose (Dextrose 50% 50 Ml Syringe) 25 - 50 ml IV UD PRN; Protocol PRN Reason: Hypoglycemia Protocol Stop: 06/10/20 21:08 Last Admin: 05/30/20 04:32 Dose: 50 ml Documented by: Glucagon (Glucagon For Inj 1 Mg Vial) 1 mg SQ UD PRN; Protocol PRN Reason: Hypoglycemia Protocol Stop: 06/10/20 21:08 Glucose (Glucose 10 Tabs/Tube) 4 - 8 tabs PO UD PRN; Protocol PRN Reason: Hypoglycemia Protocol Stop: 06/10/20 21:08 Glucose (Glucose 40% Gel 15 Gm Tube) 15 - 30 gm PO UD PRN; Protocol PRN Reason: Hypoglycemia Protocol Stop: 06/10/20 21:08 Heparin Sodium (Beef Lung) (Heparin 10 Unit/Ml 5 Ml Flush) 5 ml FLUSH PRN PRN PRN Reason: Flush Stop: 06/29/20 22:41 Heparin Sodium (Porcine) (Heparin Sod 5,000 Unit/0.5 Ml Vial) 5,000 units SQ Q12 [facility] Stop: 06/30/20 08:59 Last Admin: 06/02/20 08:17 Dose: 5,000 units Documented by: Folic Acid 1 mg/ Syringe 10 mls @ 5 mls/min IV QAM [facility] Stop: 06/11/20 10:59 Last Admin: 06/02/20 09:02 Dose: 5 mls/min Documented by: Thiamine HCl 200 mg/ Sodium (Chloride) 52 mls @ 208 mls/hr IV BID [facility] Stop: 06/16/20 12:29 Last Infusion: 06/02/20 09:17 Dose: Infused Documented by: Pantoprazole Sodium 40 mg/ (Syringe) 10 mls @ 5 mls/min IV BID [facility] Stop: 06/29/20 10:29 Last Admin: 06/02/20 09:02 Dose: 5 mls/min Documented by: Piperacillin Sod/Tazobactam (Sod 4.5 gm/ Dextrose) 120 mls @ 30 mls/hr IV Q8H [facility]; Protocol Stop: 06/03/20 10:59 Last Admin: 06/02/20 10:19 Dose: 30 mls/hr Documented by: Dextrose/Sodium Chloride (D5w And 1/2nss) 1,000 mls @ 50 mls/hr IV .Q20H [facility] Stop: 07/01/20 12:59 Last Admin: 06/02/20 08:14 Dose: 50 mls/hr Documented by: Insulin Aspart (Insulin Aspart 100 Units/Ml 3 Ml Pen) 0 units SC Q6 [facility]; Protocol Stop: 06/30/20 05:59 Last Admin: 06/02/20 11:09 Dose: Not Given Documented by: Miscellaneous (Carbohydrates For Hypoglycemia ) 15 - 30 gm PO UD PRN PRN Reason: Hypoglycemia Protocol Stop: 06/10/20 21:08 Miscellaneous (Remove Nicoderm Patch) 1 ea N/A DAILY@0859 [facility] Stop: 06/11/20 13:44 Last Admin: 06/02/20 08:16 Dose: 1 ea Documented by: Miscellaneous (Icu Electrolyte Replacement Protocol) 1 ea N/A UD PRN PRN Reason: for e-lyte repletion Stop: 06/06/20 17:12 Miscellaneous Information (Piperacill/Tazobac Consult Active) 1 ea N/A UD PRN PRN Reason: Consult Stop: 06/29/20 04:25 Miscellaneous Information (Pharmacy Glycemic Mgmt Consult) 1 ea N/A UD PRN; Protocol PRN Reason: Consult Stop: 06/30/20 05:30 Multivitamins (Multivitamin Tab) 1 tab PO QAM [facility] Stop: 07/02/20 09:59 Last Admin: 06/02/20 10:07 Dose: 1 tab Documented by: Nicotine (Nicotine 21 Mg/24 Hr Tdsy) 21 mg TD QAM [facility] Stop: 06/11/20 13:44 Last Admin: 06/02/20 08:18 Dose: 21 mg Documented by: Oxycodone HCl (Oxycodone Hcl Ir 5 Mg Tab (Immediate Release)) 5 mg PO Q6H PRN PRN Reason: Moderate Pain (4,5,6) on NRS Stop: 06/16/20 09:43 Oxycodone HCl (Oxycodone Hcl Ir 5 Mg Tab (Immediate Release)) 10 mg PO Q6H PRN PRN Reason: Severe Pain (7,8,9,10) on NRS Stop: 06/16/20 09:43 Last Admin: 06/02/20 14:05 Dose: 10 mg Documented by: Risperidone (Risperidone Odt 1mg) 1 mg PO DAILY [facility] Stop: 07/02/20 09:59 Last Admin: 06/02/20 10:07 Dose: 1 mg Documented by: PG Care Time/CCT Total # of Minutes Spent Total Time Spent with Patient: Total time spent is greater than 50% in coordination of care (as documented) at patient's floor/unit and/or counseling patient: Coding Level of Care Code 26220 Subseq Hosp Care Lvl 3 Diagnoses Rupture of bowel K63.1 Acute metabolic encephalopathy G93.41 Acute alcoholic hepatitis K70.10 Abdominal pain R10.13 Abdominal location: epigastric Ischemic cardiomyopathy I25.5 Systolic CHF I50.20 Acute respiratory failure with hypoxia J96.01 Alcohol withdrawal F10.239 Alcohol dependence F10.229 Complication of substance-induced condition: with unspecified complication Substance use status: with intoxication Dysphagia R13.10 Dysphagia type: unspecified Muscle weakness M62.81 DVT prophylaxis Z29.9 Tobacco use disorder F17.200 Depression F32.9 (1) Alcohol dependence Complication of substance-induced condition: with unspecified complication Substance use status: with intoxication Qualified Code(s): F10.229 - Alcohol dependence with intoxication, unspecified (2) Dysphagia Dysphagia type: unspecified Qualified Code(s): R13.10 - Dysphagia, unspecified (3) Abdominal pain Abdominal location: epigastric Qualified Code(s): R10.13 - Epigastric pain
[2020-06-02] MEDS ORDERED: HALOPERIDOL LACTATE 5 MG/ML 1 ML VIAL ONE (20:17)
[2020-06-03] MEDS: INSULIN ASPART 100 UNITS/ML 3 ML PEN SC SCH ×2 (00:30→06:10)
[2020-06-03] MEDS: PIPERACILLIN/TAZOBACTAM 4.5 GM in DEXTROSE 5% 100 ML IV SCH (02:48)
[2020-06-03 04:27] LABS: Mean Corpuscular Hgb Conc 33.4 g/dL (32-36); Mean Platelet Volume 11.3 fL (7.4-10.4); Platelet Count 150 K/uL (130-400)
[2020-06-03] MEDS: D5W AND 1/2NSS 1,000 ML IV SCH (04:46)
[2020-06-03 04:51] LABS: BUN Creatinine Ratio 29.4 (10-20); Calcium 7.2 mg/dl (8.5-10.1); Creatinine Clr Calc Pharmacy 110.4 ml/min; Est GFR (African American) 114.9; Est GFR (Non-African American) 99.2; Magnesium 1.5 mg/dl (1.8-2.4); Phosphorus 3.1 mg/dl (2.5-4.9); Potassium 4.2 mmol/L (3.5-5.1)
[2020-06-03 04:52] LABS: Hematocrit (blood only) 37.4 % (42-52); Hemoglobin 12.5 g/dL (14.0-18.0); Mean Corpuscular Hemoglobin 37.5 pg (25-34); Mean Corpuscular Volume 112.3 fL (80-100); RDW Coefficient of Variation 14.9 % (11.5-14.5); RDW Standard Deviation 61.2 fL (36.4-46.3); Red Blood Count 3.33 M/uL (4.7-6.1); White Blood Count 21.31 K/uL (4.8-10.8)
[2020-06-03 04:55] LABS: ANC (manual) 18.88 K/uL (1.4-6.5); Eosinophils # (manual) 0.75 K/uL (0-0.5); Eosinophils % (manual) 3.5 %; Lymphocytes % (manual) 6.1 %; Macrocytosis Present; Monocytes # (manual) 0.38 K/uL (0.11-0.59); Monocytes % (manual) 1.8 %; Neutrophils # (manual) 18.88 K/uL (1.4-6.5); Neutrophils % (manual) 88.6 %; Polychromasia 1+
[2020-06-03] MEDS: MAGNESIUM SULFATE / D5W 1 GM/100 ML BAG IV SCH ×2 (05:27→07:11)
[2020-06-03] MEDS: OXYCODONE HCL IR 5 MG TAB (IMMEDIATE RELEASE) PO PRN (08:38)
[2020-06-03] MEDS: HEPARIN SOD 5,000 UNIT/0.5 ML VIAL SQ SCH ×2 (08:40→20:45)
[2020-06-03] MEDS: carvediloL 12.5 MG TAB PO SCH ×2 (08:40→20:43)
[2020-06-03] MEDS: FOLIC ACID 1 MG in SYRINGE 9.8 ML IV SCH (08:40)
[2020-06-03] MEDS: MULTIVITAMIN TAB PO SCH (08:41)
[2020-06-03] MEDS: NICOTINE 21 MG/24 HR TDSY TD SCH (08:41)
[2020-06-03] MEDS: RISPERIDONE ODT 1MG PO SCH (08:41)
[2020-06-03] MEDS: PANTOprazole 40 MG in SYRINGE 0 ML IV SCH (08:42)
[2020-06-03] MEDS: THIAMINE HCL 200 MG in SODIUM CHLORIDE 0.9% 50 ML IV SCH ×2 (08:42→20:55)
--- NOTE | 2020-06-03 08:57 | Critical Care Progress Note ---
Date of Service June 03, 2020 Assessment & Plan (1) Septic shock: (2) Systolic CHF: (3) Abdominal pain: (4) Tachypnea: (5) Sepsis: (6) Admitted to intensive care unit: Reason Critically Ill: 59-year-old male here with a pMHx. significant for alcoholism, cirrhosis, and hepatitis C., who presented with AMS and dyspnea and who was under ICU care for airway monitoring, and hypotension. Recommendations: Neuro - Toxic metabolic encephalopathy and alcoholic withdrawal: Improving. Can start him on p.o. thiamine. Patient is on risperidone for delirium. Will defer to floor team. Aspiration precautions Cardiac - Patient appears to be volume overloaded. We will give one-time dose of 40 mg IV Lasix today. Continue home blood pressure medications. He is mildly tachycardic. Continue monitor. Respiratory - Intubated 05/30/2020 in the OR. Extubated 05/31/2020 Currently saturating well on room air. GI - Patient status post perforated sigmoid diverticulitis. Ostomy in place. Surgery following. Abdomen is soft but tender to palpation. Continue to monitor closely. Continue Zosyn for total of 14 days. Patient also had transaminitis on hospital admission likely secondary to alcohol. This is improving. He would likely benefit from the NG placement and initiation of tube feeds given how poor his nutritional status is currently. Consider placement while on the floor if he does not tolerate much p.o. intake orally. Will start on lactulose 20 mg p.o. daily given his underlying cirrhosis. RENAL/LYTES - Likely prerenal from hypotension, improving Monitor BUN/creatinine Avoid nephrotoxic medications Strict ins and outs - -strict in and out ENDO - -hyperglycemia management per pharmacy. HEME - -hemoglobin stable monitor H&H -WBC trended up today. Continue to monitor. Procalcitonin ordered. ID - Blood cultures on 05/30 growing para Bacteroides and enterococcus avium. Abdominal cultures growing Streptococcus constellatus, and 2 species of Bacteroides. Repeat blood cultures pending. Continue Zosyn for 2 weeks total. INTEGUMENTARY - - no acute concerns PSYCH - - patient history concerning for severe depression and would likely benefit from outpatient management. Risperidone for delirium. --Prophylaxis VTE: Heparin GI: Protonix Lines: Will need central lines removed prior to moving to the floor. Diet: N.p.o. Patient's overall prognosis is very poor. Would likely not benefit from palliative care consultation. He is stable to be transferred to the floor. (7) AMS (altered mental status): (8) Liver cirrhosis: (9) Pneumonia: (10) Acute metabolic encephalopathy: (11) Acute dyspnea: (12) Alcohol abuse: (13) Jaundice: (14) Acute alcoholic hepatitis: Admission and Anticipated Discharge Date Admission Date: May 11, 2020 Subjective Patient seen and examined. No acute overnight events. is at bedside. Patient denies any complaints currently. He does have mild abdominal pain when pressing on his abdomen. He is alert to person but not time or place. Blood pressure is 143/106. Heart rate 107. Off pressors. He is currently saturating well on room air. Review of Systems Review of Systems: All systems reviewed & are unremarkable except as noted in Subjective Physical Exam Physical Exam: General: Alert. Patient confused. Able to reorient. Skin: Warm, dry, Head: Atraumatic Ears, nose, mouth and throat: airway patent Cardiovascular: Normal peripheral perfusion Respiratory: no respiratory distress Gastrointestinal: Mild tenderness on palpation., ostomy patent Musculoskeletal: No deformity Results & Data Results & Data ([facility]) Vital Signs (Past 12 Hours) Vital Signs Temp Pulse BP Pulse Ox 06/03/20 06:32 98.8 F 111 H 143/106 H 97 06/03/20 06:00 99.5 F 112 H 98 06/03/20 05:32 99.1 F 112 H 133/98 98 06/03/20 05:00 99.5 F 112 H 99 06/03/20 04:32 99.5 F 112 H 143/116 H 99 06/03/20 04:00 99.3 F 100 H 99 06/03/20 03:32 99.5 F 99 H 103/67 96 06/03/20 03:00 99.5 F 100 H 95 06/03/20 02:35 99.7 F H 102 H 121/88 97 06/03/20 02:00 97.7 F 103 H 98 06/03/20 01:32 97.7 F 99 H 129/99 97 06/03/20 01:00 97.9 F 98 H 97 06/03/20 00:32 97.9 F 96 H 133/93 98 06/03/20 00:00 97.9 F 96 H 96 06/02/20 23:32 97.9 F 105 H 141/92 H 99 06/02/20 23:00 98.1 F 106 H 98 06/02/20 22:32 98.1 F 96 H 129/98 96 06/02/20 22:00 98.1 F 90 97 06/02/20 21:32 97.7 F 91 H 92/65 L 95 06/02/20 21:00 96.6 F L 103 H 98 labs, chest imaging and vitals reviewed Coding Level of Care Code 56212 Subseq Hosp Care Lvl 3 Diagnoses Septic shock A41.9; R65.21 Systolic CHF I50.20 Abdominal pain R10.13 Abdominal location: epigastric Tachypnea R06.82 Sepsis A41.9 Admitted to intensive care unit Z78.9 AMS (altered mental status) R41.82 Liver cirrhosis K74.60 Pneumonia J18.9 Acute metabolic encephalopathy G93.41 Acute dyspnea R06.00 Alcohol abuse F10.10 Jaundice R17 Acute alcoholic hepatitis K70.10 (1) Abdominal pain Abdominal location: epigastric Qualified Code(s): R10.13 - Epigastric pain
[2020-06-03] MEDS ORDERED: FUROSEMIDE 40 MG in SYRINGE 0 ML IV ONE ×2 (09:00→15:00)
[2020-06-03] MEDS ORDERED: lisinopriL 20 MG TAB PO SCH (09:00)
[2020-06-03] MEDS ORDERED: ASCORBIC ACID 500 MG TAB PO SCH (09:00)
[2020-06-03] MEDS: LACTULOSE SYRUP 20 GM/30 ML UDC PO SCH (10:15)
--- NOTE | 2020-06-03 10:47 | Surgery Progress Note ---
Date of Service June 03, 2020 Assessment & Plan (1) Rupture of bowel: Postoperative day #4 status post Saloni procedure for perforated sigmoid diverticulitis Increase in leukocytosis to 21K today, afebrile, repeat blood cultures 06/02/20 pending Colostomy functioning with liquid brown stool Franki drain with ascites output, almost 3 liters in last 24 hours Plan: Continue pain management as needed Continue IV Zosyn, await repeat blood cultures, monitor cbc Can increase to full liquids for dinner continue franki drain continue ICU/medical management Dr. Hernandez has seen patient, was present during my examination and agrees with above. Admission and Anticipated Discharge Date Admission Date: May 11, 2020 Subjective patient sleeping upon entering room, awakes easily currently denying abdominal pain but seems still somewhat confused Physical Exam Constitutional: + obese and + altered mental status; no acute distress Eyes: +icteric Neck: Right IJ central line present and dressing intact Respiratory: normal respiratory effort; no respiratory distress, no labored breathing, no retractions and does not use accessory muscles Gastrointestinal (Abdomen): Inspection/Auscultation: + abdominal surgical drain present (RLQ drain with staw colored output); abdomen not distended Percussion/Palpation: abdomen soft; abdomen nontender, no guarding and abdomen not rigid LLQ ostomy with liquid brown stool present Skin: no rashes, warm and dry Psychiatric: Orientation: + not oriented x 3 Results & Data ([facility]) Vital Signs (Past 12 Hours) Vital Signs Temp Pulse BP Pulse Ox 06/03/20 09:00 104 H 99 06/03/20 08:00 37.1 C 144/101 H 06/03/20 07:00 37.0 C 108 H 161/112 H 94 06/03/20 06:32 37.1 C 111 H 143/106 H 97 06/03/20 06:00 37.5 C 112 H 98 06/03/20 05:32 37.3 C 112 H 133/98 98 06/03/20 05:00 37.5 C 112 H 99 06/03/20 04:32 37.5 C 112 H 143/116 H 99 06/03/20 04:00 37.4 C 100 H 99 06/03/20 03:32 37.5 C 99 H 103/67 96 06/03/20 03:00 37.5 C 100 H 95 06/03/20 02:35 37.6 C H 102 H 121/88 97 06/03/20 02:00 36.5 C 103 H 98 06/03/20 01:32 36.5 C 99 H 129/99 97 06/03/20 01:00 36.6 C 98 H 97 06/03/20 00:32 36.6 C 96 H 133/93 98 06/03/20 00:00 36.6 C 96 H 96 06/02/20 23:32 36.6 C 105 H 141/92 H 99 06/02/20 23:00 36.7 C 106 H 98 Laboratory Results 06/03/20 06/03/20 06/03/20 Range/Units 08:56 05:51 04:16 WBC 21.31 H (4.8-10.8) K/uL RBC 3.33 L (4.7-6.1) M/uL Hgb 12.5 L (14.0-18.0) g/dL Hct 37.4 L (42-52) % MCV 112.3 H (80-100) fL MCH 37.5 H (25-34) pg MCHC 33.4 (32-36) g/dL RDW Std Deviation 61.2 H (36.4-46.3) fL RDW Coeff of Paradise 14.9 H (11.5-14.5) % Plt Count 150 (130-400) K/uL MPV 11.3 H (7.4-10.4) fL Neutrophils % (Manual) 88.6 % Lymphocytes % (Manual) 6.1 % Monocytes % (Manual) 1.8 % Eosinophils % (Manual) 3.5 % Neutrophils # (Manual) 18.88 H (1.4-6.5) K/uL Total Absolute Neuts 18.88 H (1.4-6.5) K/uL Lymphocytes # (Manual) 1.30 (1.2-3.4) K/uL Total Abs Lymphocytes 1.30 (1.2-3.4) K/uL Monocytes # (Manual) 0.38 (0.11-0.59) K/uL Eosinophils # (Manual) 0.75 H (0-0.5) K/uL Polychromasia 1+ Macrocytosis Present Sodium (136-145) mmol/L Potassium (3.5-5.1) mmol/L Chloride (98-107) mmol/L Carbon Dioxide (21-32) mmol/L Anion Gap (3-11) BUN (7-18) mg/dl Creatinine (0.6-1.4) mg/dl Est Cr Clr Drug Dosing ml/min Est GFR ( Amer) Est GFR (Non-Af Amer) BUN/Creatinine Ratio (10-20) Glucose (70-99) mg/dl POC Glucose 173 H (70-99) mg/dl Lactate (0.4-2.0) mmol/L Calcium (8.5-10.1) mg/dl Phosphorus (2.5-4.9) mg/dl Magnesium (1.8-2.4) mg/dl Ammonia (11-32) umol/L Procalcitonin 3.79 H (0-0.5) ng/ml 06/03/20 06/03/20 06/03/20 Range/Units 04:16 04:16 00:14 WBC (4.8-10.8) K/uL RBC (4.7-6.1) M/uL Hgb (14.0-18.0) g/dL Hct (42-52) % MCV (80-100) fL MCH (25-34) pg MCHC (32-36) g/dL RDW Std Deviation (36.4-46.3) fL RDW Coeff of [place] (11.5-14.5) % Plt Count (130-400) K/uL MPV (7.4-10.4) fL Neutrophils % (Manual) % Lymphocytes % (Manual) % Monocytes % (Manual) % Eosinophils % (Manual) % Neutrophils # (Manual) (1.4-6.5) K/uL Total Absolute Neuts (1.4-6.5) K/uL Lymphocytes # (Manual) (1.2-3.4) K/uL Total Abs Lymphocytes (1.2-3.4) K/uL Monocytes # (Manual) (0.11-0.59) K/uL Eosinophils # (Manual) (0-0.5) K/uL Polychromasia Macrocytosis Sodium 145 (136-145) mmol/L Potassium 4.2 (3.5-5.1) mmol/L Chloride 117 H (98-107) mmol/L Carbon Dioxide 23 (21-32) mmol/L Anion Gap 5.0 (3-11) BUN 23 H (7-18) mg/dl Creatinine 0.80 (0.6-1.4) mg/dl Est Cr Clr Drug Dosing 110.4 ml/min Est GFR ( Amer) 114.9 Est GFR (Non-Af Amer) 99.2 BUN/Creatinine Ratio 29.4 H (10-20) Glucose 126 H (70-99) mg/dl POC Glucose 105 H (70-99) mg/dl Lactate (0.4-2.0) mmol/L Calcium 7.2 L (8.5-10.1) mg/dl Phosphorus 3.1 (2.5-4.9) mg/dl Magnesium 1.5 L (1.8-2.4) mg/dl Ammonia < 10.0 L (11-32) umol/L Procalcitonin (0-0.5) ng/ml 06/02/20 06/02/20 06/02/20 Range/Units 20:51 17:07 11:06 WBC (4.8-10.8) K/uL RBC (4.7-6.1) M/uL Hgb (14.0-18.0) g/dL Hct (42-52) % MCV (80-100) fL MCH (25-34) pg MCHC (32-36) g/dL RDW Std Deviation (36.4-46.3) fL RDW Coeff of [place] (11.5-14.5) % Plt Count (130-400) K/uL MPV (7.4-10.4) fL Neutrophils % (Manual) % Lymphocytes % (Manual) % Monocytes % (Manual) % Eosinophils % (Manual) % Neutrophils # (Manual) (1.4-6.5) K/uL Total Absolute Neuts (1.4-6.5) K/uL Lymphocytes # (Manual) (1.2-3.4) K/uL Total Abs Lymphocytes (1.2-3.4) K/uL Monocytes # (Manual) (0.11-0.59) K/uL Eosinophils # (Manual) (0-0.5) K/uL Polychromasia Macrocytosis Sodium (136-145) mmol/L Potassium (3.5-5.1) mmol/L Chloride (98-107) mmol/L Carbon Dioxide (21-32) mmol/L Anion Gap (3-11) BUN (7-18) mg/dl Creatinine (0.6-1.4) mg/dl Est Cr Clr Drug Dosing ml/min Est GFR ( Amer) Est GFR (Non-Af Amer) BUN/Creatinine Ratio (10-20) Glucose (70-99) mg/dl POC Glucose 121 H 100 H (70-99) mg/dl Lactate 1.8 (0.4-2.0) mmol/L Calcium (8.5-10.1) mg/dl Phosphorus (2.5-4.9) mg/dl Magnesium (1.8-2.4) mg/dl Ammonia (11-32) umol/L Procalcitonin (0-0.5) ng/ml
--- NOTE | 2020-06-03 11:08 | Pharmacy Report ---
Pharmacy Glycemic Short Note 2 - Date of Service June 03, 2020 - Glycemic Short BSG Results (Last 24 hours): 06/02/20 06/02/20 06/03/20 11:06 17:07 00:14 Glucose POC Glucose 100 H 121 H 105 H 06/03/20 06/03/20 04:16 05:51 Glucose 126 H POC Glucose 173 H OUTPATIENT ANTIDIABETIC REGIMEN: * n/a * A1c ? ASSESSMENT: 06/03 * BSGs remain well controlled over last 24 hrs, BSGs raning 88-173 * Patient transferred out of ICU this AM * Diet has been advanced to clears * Dextrose containing IVFs continue at 50cc/hr * Patient has h/o hepatic cirrhosis, did have episodes of hypoglycemia earlier this admission, sand reported A1c 4.1% however this is often inaccurate given his comorbidities. He experienced stress hyperglycemia 05/30-05/31 secondary to perf viscous, requiring surgery, pressor support and intubation. Since then his BSGs have been fairly well controlled with no insulin admin. Will remove Novolog prandial insulin at this time. Will utilize correctional insulin alone and adjust goal range PLAN FOR INPATIENT GLYCEMIC CONTROL: * Basal insulin * None * Bolus insulin - remove prandial coverage and adjust goal * NovoLog per scale ACHS or Q6hrs while NPO * Goal Range: Low 120 mg/dL - High 160 mg/dL * Correction Factor: 25 mg/dL/unit * Nutritional / Prandial insulin per carb ratio of 1 unit per -- grams CHO consumed
[2020-06-03] MEDS ORDERED: MoRPHine SULFATE 2 MG/ML CARP IV PRN (14:38)
--- NOTE | 2020-06-03 15:11 | Electrocardiogram Report ---
Test Reason : Blood Pressure : / mmHG Vent. Rate : 110 BPM Atrial Rate : 110 BPM P-R Int : 146 ms QRS Dur : 088 ms QT Int : 354 ms P-R-T Axes : 018 -51 042 degrees QTc Int : 479 ms Poor data quality, interpretation may be adversely affected Sinus tachycardia Left anterior fascicular block Septal infarct , age undetermined Possible Lateral infarct , age undetermined Abnormal ECG When compared with ECG of 02-JUN-2020 11:20, Septal infarct is now Present Borderline criteria for Lateral infarct are now Present Confirmed by Jayant Gross ([id number]) on 06/03/2020 3:10:47 PM Referred By: REFERRED SELF Confirmed By:Jayant Gross
[2020-06-03] MEDS: MoRPHine SULFATE 4 MG/ML 1 ML CARP\\VIAL IV PRN (15:15)
[2020-06-03] MEDS: METOPROLOL TARTRATE 1 MG/ML VIAL IV SCH (17:20)
[2020-06-03] MEDS ORDERED: SODIUM CHLORIDE 0.9% 1000ML 1,000 ML IV ONE (20:21)
[2020-06-03] MEDS ORDERED: LANSOPRAZOLE 30 MG SOLTAB PO SCH (21:00)
[2020-06-03] MEDS ORDERED: PIPERACILL/TAZOBAC CONSULT ACTIVE PRN (21:27)
--- NOTE | 2020-06-03 21:37 | Hospitalist Progress Note ---
Date of Service June 03, 2020 Assessment & Plan (1) Rupture of bowel: Patient acutely decompensated in the director state pharmacy hours of 05/30 he was sent to the ICU with a fever hypotension and required pressor support. CT scan of the abdomen pelvis revealed free air with concern for perforated sigmoid diverticulitis. Surgery discussed this with the family and decided to pursue surgical intervention here at [facility]. Patient underwent exploratory lap repair of ruptured viscus and colostomy placement on 05/30. patient tapered off pressors, extubated and breathing well, no further signs of septic shock increased output from ostomy, defer diet to general surgery was previously on pureed diet only because he was not reliable to chew well today he had a possible aspiration event while upright in chair make NPO for now, ask speech to see tomorrow mild abdominal pain but nothing severe continue Vancomycin and Zosyn blood cultures with enterococcus, parabacteroides wound culture during OR with bacteroides and streptococcus species repeat blood cultures from 06/02 with no growth thus far WBC remains elevated at 21k prognosis is guarded, will need to address nutrition, the issue is that NGT was attempted in the OR but it could not be placed (2) Acute metabolic encephalopathy: extubated and remains altered, has 1:1 very impulsive and has to be redirected often, pulling at lines, jones 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 remains on high-dose thiamine IV for prevention of Wernicke's encephalopathy. VBGs w/o hypercarbia. TSH, B12 wnl. ammonia wnl. MRI brain 05/23, no stroke, no tumor, no acute changes (3) Acute alcoholic hepatitis: Cirrhosis on imaging s/p NAC protocol. Patient previously was on steroids these have been discontinued in the postoperative period due to concern for infection Hep c RNa is negative bilirubin slowly coming down, still elevated check tomorrow (4) Abdominal pain: due to perforated bowel, suspect sigmoid diverticuli Ostomy was placed. mild pain today previously C diff negative, stool cx negative Patient had 2 L of ascites in his abdomen upon surgical entrance portal vein dopplers neg for PVT of note - esophageal varices were seen on CT abdomen. pt has stable hgb at this point (5) Ischemic cardiomyopathy: EF 40-45% on echo this admission - now with diagnosis of systolic heart failure gave a dose of Coreg 12.5mg and Lisinopril 20mg this morning now with evidence of volume overload, likely acute systolic heart failure due to aggressive IV fluids with sepsis plus low oncotic pressure, albumin of 1 Lasix 40mg IV x 2 doses today, excellent UO will make Lasix 20mg IV q12, follow UO (6) Systolic CHF: now with acute systolic HF due to the above treat with Lasix IV ef 40-45% (7) Acute respiratory failure with hypoxia: resolved, now extubated, on room air today (8) Alcohol withdrawal: previously received IV ativan while in ICU. the ativan was stopped due to excess sedation in setting of copious use. 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 intake is also Severe protein calorie malnutrition with an albumin less than 1 CT head w/o stroke on 2 occasions MRI brain without stroke, done on 05/23 will need to address nutrition possible aspiration event this afternoon on thin liquids, ask speech to see again tomorrow (11) Muscle weakness: likely from his significant illness, now with two separate ICU stays (12) DVT prophylaxis: Heparin subcu for DVT prevention cont PT, OT if able to participate Patient is seriously ill and survival will be in question even though he is recovering from surgery, doubtful he will return to his prior state of being independent he will need prolonged physical rehab unsure if his mental state will ever return to normal (13) Tobacco use disorder: previously on nicoderm patch daily (14) Depression: needs Rx once mentation improved Admission and Anticipated Discharge Date Admission Date: May 11, 2020 Subjective patient continues to have confusion, he is impulsive, requiring one to one supervision WBC elevated today, but procalcitonin down a lot compared to previous value no fever he is hypertensive and tachycardic, resumed Coreg and Lisinopril this morning Lasix 40mg IV given by ICU this morning, great response, re-dosed 40mg IV this afternoon, UO over 4.5 liters today ammonia < 10, BUN and Cr normal, electrolytes stable WBC elevated at 21k, Hb 12.[address] Melendez, will transfer to PCU as he is off pressors really need to address nutrition, unsure if we can pass NGT as it could not be passed in OR later in the afternoon after transfer to PCU, he was sitting up in chair and he had a sever coughing spell with thin liquids made NPO except meds for time being, will have speech see him again tomorrow converted medications to IV where possible Review of Systems Review of Systems: Unobtainable due to cognitive status (admits to some mild abdominal pain, denies other things, could not go into detail) Physical Exam Constitutional: well developed and + ill appearing (appears older than age); no acute distress and + not well groomed Eyes: PERRL, conjunctivae normal, anicteric sclerae ENMT: external ear and nose normal, oropharynx normal Neck: trachea midline, no thyromegaly Respiratory: normal respiratory effort, lungs clear to auscultation Cardiovascular: Rate/Rhythm: regular rhythm and + tachycardic Heart Sounds: normal S1 and normal S2; no murmur Vessels: no JVD Extremities: normal capillary refill and + edema (pitting to knees bilaterally) Gastrointestinal (Abdomen): normal bowel sounds, soft, nontender, no hepatosplenomegaly Inspection/Auscultation: normal bowel sounds and + abdominal surgical incision; + abdomen abnormal to inspection and abdomen not distended Percussion/Palpation: abdomen soft; abdomen nontender, no guarding and abdomen not rigid ostomy in LLQ Musculoskeletal: Head/Neck/Chest: normocephalic, head atraumatic and neck supple Extremities: extremities normal to inspection, + abnormal strength (generalized weakness) and + muscle atrophy; no cyanosis and no clubbing Skin: normal turgor and + jaundice; no rashes and no wound Neurologic: normal touch/pain/proprioception, CN's II-XI intact bilaterally and awake; no focal motor deficits Psychiatric: Orientation: alert, oriented to person and cooperative; + not oriented to place and + not oriented to time Lymphatic: no cervical or axillary lymphadenopathy Results & Data Results & Data ([facility]) Vital Signs (Past 12 Hours) Vital Signs Temp Pulse Pulse Resp BP BP Pulse Ox 06/03/20 20:20 100/67 06/03/20 20:03 86/61 L 06/03/20 19:58 98/67 L 06/03/20 19:35 36.5 C 83 18 83/52 L 94 06/03/20 17:42 100/71 06/03/20 17:20 90/64 L 06/03/20 15:42 36.9 C 90 19 90/64 L 94 06/03/20 15:00 98 H 06/03/20 11:35 36.6 C 95 H 18 138/98 94 06/03/20 11:14 86 Laboratory Results Laboratory Results - last 24 hr 06/02/20 06/03/20 06/03/20 20:51 00:14 04:16 WBC RBC Hgb Hct MCV MCH MCHC RDW Std Deviation RDW Coeff of [place] Plt Count MPV Neutrophils % (Manual) Lymphocytes % (Manual) Monocytes % (Manual) Eosinophils % (Manual) Neutrophils # (Manual) Total Absolute Neuts Lymphocytes # (Manual) Total Abs Lymphocytes Monocytes # (Manual) Eosinophils # (Manual) Polychromasia Macrocytosis Sodium 145 Potassium 4.2 Chloride 117 H Carbon Dioxide 23 Anion Gap 5.0 BUN 23 H Creatinine 0.80 Est Cr Clr Drug Dosing 110.4 Est GFR ( Amer) 114.9 Est GFR (Non-Af Amer) 99.2 BUN/Creatinine Ratio 29.4 H Glucose 126 H POC Glucose 105 H Lactate 1.8 Calcium 7.2 L Phosphorus 3.1 Magnesium 1.5 L Ammonia Procalcitonin 06/03/20 06/03/20 06/03/20 04:16 04:16 05:51 WBC 21.31 H RBC 3.33 L Hgb 12.5 L Hct 37.4 L MCV 112.3 H MCH 37.5 H MCHC 33.4 RDW Std Deviation 61.2 H RDW Coeff of [place] 14.9 H Plt Count 150 MPV 11.3 H Neutrophils % (Manual) 88.6 Lymphocytes % (Manual) 6.1 Monocytes % (Manual) 1.8 Eosinophils % (Manual) 3.5 Neutrophils # (Manual) 18.88 H Total Absolute Neuts 18.88 H Lymphocytes # (Manual) 1.30 Total Abs Lymphocytes 1.30 Monocytes # (Manual) 0.38 Eosinophils # (Manual) 0.75 H Polychromasia 1+ Macrocytosis Present Sodium Potassium Chloride Carbon Dioxide Anion Gap BUN Creatinine Est Cr Clr Drug Dosing Est GFR ( Amer) Est GFR (Non-Af Amer) BUN/Creatinine Ratio Glucose POC Glucose 173 H Lactate Calcium Phosphorus Magnesium Ammonia < 10.0 L Procalcitonin 06/03/20 06/03/20 08:56 11:15 WBC RBC Hgb Hct MCV MCH MCHC RDW Std Deviation RDW Coeff of [place] Plt Count MPV Neutrophils % (Manual) Lymphocytes % (Manual) Monocytes % (Manual) Eosinophils % (Manual) Neutrophils # (Manual) Total Absolute Neuts Lymphocytes # (Manual) Total Abs Lymphocytes Monocytes # (Manual) Eosinophils # (Manual) Polychromasia Macrocytosis Sodium Potassium Chloride Carbon Dioxide Anion Gap BUN Creatinine Est Cr Clr Drug Dosing Est GFR ( Amer) Est GFR (Non-Af Amer) BUN/Creatinine Ratio Glucose POC Glucose Lactate Calcium Phosphorus Magnesium 1.8 Ammonia Procalcitonin 3.79 H Medications Administered Current Inpatient Medications Albuterol (Albut/Ipratrop 3mg/0.5mg Neb 3 Ml Vial) 3 ml NEB Q4R PRN PRN Reason: wheeze Stop: 06/13/20 10:59 Benzocaine (Benzocaine 20% Aer Spr 82.5 Gm Can) 1 appln EXT UD PRN PRN Reason: Pain Stop: 06/14/20 11:17 Last Admin: 05/15/20 16:00 Dose: 1 appln Documented by: Calamine/Phenol (Menthol-Zinc Oxide 360 Appln/120 Gm Tube) 1 appln EXT UD WESLY Stop: 06/14/20 19:59 Last Admin: 05/15/20 20:52 Dose: 1 appln Documented by: Carvedilol (Carvedilol 12.5 Mg Tab) 12.5 mg PO BID WESLY Stop: 07/03/20 08:59 Last Admin: 06/03/20 20:43 Dose: Not Given Documented by: Dextrose (Dextrose 50% 50 Ml Syringe) 25 - 50 ml IV UD PRN; Protocol PRN Reason: Hypoglycemia Protocol Stop: 06/10/20 21:08 Last Admin: 05/30/20 04:32 Dose: 50 ml Documented by: Glucagon (Glucagon For Inj 1 Mg Vial) 1 mg SQ UD PRN; Protocol PRN Reason: Hypoglycemia Protocol Stop: 06/10/20 21:08 Glucose (Glucose 10 Tabs/Tube) 4 - 8 tabs PO UD PRN; Protocol PRN Reason: Hypoglycemia Protocol Stop: 06/10/20 21:08 Glucose (Glucose 40% Gel 15 Gm Tube) 15 - 30 gm PO UD PRN; Protocol PRN Reason: Hypoglycemia Protocol Stop: 06/10/20 21:08 Heparin Sodium (Beef Lung) (Heparin 10 Unit/Ml 5 Ml Flush) 5 ml FLUSH PRN PRN PRN Reason: Flush Stop: 06/29/20 22:41 Heparin Sodium (Porcine) (Heparin Sod 5,000 Unit/0.5 Ml Vial) 5,000 units SQ Q12 WESLY Stop: 06/30/20 08:59 Last Admin: 06/03/20 20:45 Dose: 5,000 units Documented by: Thiamine HCl 200 mg/ Sodium (Chloride) 52 mls @ 208 mls/hr IV BID WESLY Stop: 06/16/20 12:29 Last Admin: 06/03/20 20:55 Dose: 208 mls/hr Documented by: Dextrose/Sodium Chloride (D5w And 1/2nss) 1,000 mls @ 50 mls/hr IV .Q20H WESLY Stop: 07/01/20 12:59 Last Infusion: 06/03/20 21:07 Dose: 0 mls/hr Documented by: Folic Acid 1 mg/ Syringe 10 mls @ 5 mls/min IV QAM WESLY Stop: 07/04/20 08:59 Pantoprazole Sodium 40 mg/ (Syringe) 10 mls @ 5 mls/min IV DAILY@1100 WESLY Stop: 07/04/20 10:59 Piperacillin Sod/Tazobactam (Sod 3.375 gm/ Dextrose) 115 mls @ 28.75 mls/hr IV Q8H WELSY; Protocol Stop: 06/14/20 01:59 Piperacillin Sod/Tazobactam (Sod 3.375 gm/ Dextrose) 115 mls @ 230 mls/hr IV NOW ONE; Protocol Stop: 06/03/20 22:29 Lactulose (Lactulose Syrup 20 Gm/30 Ml Udc) 20 gm PO DAILY WESLY Stop: 07/03/20 08:59 Last Admin: 06/03/20 10:15 Dose: 20 gm Documented by: Metoprolol Tartrate (Metoprolol Tartrate 1 Mg/Ml Vial) 5 mg IV Q6 WESLY Stop: 07/03/20 17:59 Last Admin: 06/03/20 17:20 Dose: Not Given Documented by: Miscellaneous (Carbohydrates For Hypoglycemia ) 15 - 30 gm PO UD PRN PRN Reason: Hypoglycemia Protocol Stop: 06/10/20 21:08 Miscellaneous (Remove Nicoderm Patch) 1 ea N/A DAILY@0859 [facility] Stop: 06/11/20 13:44 Last Admin: 06/03/20 08:40 Dose: 1 ea Documented by: Miscellaneous Information (Piperacill/Tazobac Consult Active) 1 ea N/A UD PRN PRN Reason: Consult Stop: 07/03/20 21:26 Morphine Sulfate (Morphine Sulfate 2 Mg/Ml Carp) 2 mg IV Q4H PRN PRN Reason: Pain Stop: 06/17/20 14:37 Morphine Sulfate (Morphine Sulfate 4 Mg/Ml 1 Ml Carp\Vial) 4 mg IV Q4H PRN PRN Reason: Severe Pain Stop: 06/17/20 14:37 Last Admin: 06/03/20 15:15 Dose: 4 mg Documented by: Nicotine (Nicotine 21 Mg/24 Hr Tdsy) 21 mg TD QAM [facility] Stop: 06/11/20 13:44 Last Admin: 06/03/20 08:41 Dose: 21 mg Documented by: Oxycodone HCl (Oxycodone Hcl Ir 5 Mg Tab (Immediate Release)) 5 mg PO Q6H PRN PRN Reason: Moderate Pain (4,5,6) on NRS Stop: 06/16/20 09:43 Oxycodone HCl (Oxycodone Hcl Ir 5 Mg Tab (Immediate Release)) 10 mg PO Q6H PRN PRN Reason: Severe Pain (7,8,9,10) on NRS Stop: 06/16/20 09:43 Last Admin: 06/03/20 08:38 Dose: 10 mg Documented by: Risperidone (Risperidone Odt 1mg) 1 mg PO DAILY [facility] Stop: 07/02/20 09:59 Last Admin: 06/03/20 08:41 Dose: 1 mg Documented by: PG Care Time/CCT Total # of Minutes Spent Total Time Spent with Patient: Total time spent is greater than 50% in coordination of care (as documented) at patient's floor/unit and/or counseling patient: Coding Level of Care Code 60158 Subseq Hosp Care Lvl 3 Diagnoses Rupture of bowel K63.1 Acute metabolic encephalopathy G93.41 Acute alcoholic hepatitis K70.10 Abdominal pain R10.13 Abdominal location: epigastric Ischemic cardiomyopathy I25.5 Systolic CHF I50.20 Acute respiratory failure with hypoxia J96.01 Alcohol withdrawal F10.239 Alcohol dependence F10.229 Complication of substance-induced condition: with unspecified complication Substance use status: with intoxication Dysphagia R13.10 Dysphagia type: unspecified Muscle weakness M62.81 DVT prophylaxis Z29.9 Tobacco use disorder F17.200 Depression F32.9 (1) Abdominal pain Abdominal location: epigastric Qualified Code(s): R10.13 - Epigastric pain (2) Alcohol dependence Complication of substance-induced condition: with unspecified complication Substance use status: with intoxication Qualified Code(s): F10.229 - Alcohol dependence with intoxication, unspecified (3) Dysphagia Dysphagia type: unspecified Qualified Code(s): R13.10 - Dysphagia, unspecified
[2020-06-03] MEDS ORDERED: ALBUMIN 5% 250 ML IV ONE ×2 (22:00→22:30)
[2020-06-03] MEDS ORDERED: PIPERACILLIN/TAZOBACTAM 3.375 GM in DEXTROSE 5% 100 ML IV ONE (22:00)
[2020-06-03 22:32] LABS: Albumin Globulin Ratio 0.3 (0.9-2); Albumin Level 0.9 gm/dl (3.4-5.0); BUN Creatinine Ratio 25.5 (10-20); Bilirubin,Total 6.3 mg/dl (0.2-1); Calcium 7.4 mg/dl (8.5-10.1); Creatinine Clr Calc Pharmacy 88.4 ml/min; Est GFR (African American) 98.8; Est GFR (Non-African American) 85.2; Potassium 3.6 mmol/L (3.5-5.1); Total Protein 3.9 gm/dl (6.4-8.2)
[2020-06-04] MEDS: METOPROLOL TARTRATE 1 MG/ML VIAL IV SCH ×3 (00:02→12:26)
[2020-06-04] MEDS: PIPERACILLIN/TAZOBACTAM 3.375 GM in DEXTROSE 5% 100 ML IV SCH ×3 (01:40→18:29)
[2020-06-04] MEDS: D5W AND 1/2NSS 1,000 ML IV SCH (01:45)
[2020-06-04 06:08] LABS: Basophils # (auto) 0.01 K/uL (0-0.2); Basophils % (auto) 0.1 %; Eosinophils # (auto) 0.65 K/uL (0-0.5); Eosinophils % (auto) 3.6 %; Hematocrit (blood only) 35.2 % (42-52); Hemoglobin 11.3 g/dL (14.0-18.0); Immature Granulocytes # (auto) 0.21 K/uL (0.00-0.02); Immature Granulocytes % (auto) 1.2 %; Lymphocytes # (auto) 1.23 K/uL (1.2-3.4); Lymphocytes % (auto) 6.8 %; Mean Corpuscular Hemoglobin 36.5 pg (25-34); Mean Corpuscular Hgb Conc 32.1 g/dL (32-36); Mean Corpuscular Volume 113.5 fL (80-100); Mean Platelet Volume 11.6 fL (7.4-10.4); Monocytes # (auto) 0.63 K/uL (0.11-0.59); Monocytes % (auto) 3.5 %; Neutrophils # (auto) 15.31 K/uL (1.4-6.5); Neutrophils % (auto) 84.8 %; Platelet Count 137 K/uL (130-400); RDW Coefficient of Variation 14.9 % (11.5-14.5); RDW Standard Deviation 60.6 fL (36.4-46.3); White Blood Count 18.04 K/uL (4.8-10.8)
[2020-06-04 06:30] LABS: Macrocytosis Present
[2020-06-04 06:47] LABS: Albumin Level 1.4 gm/dl (3.4-5.0); BUN Creatinine Ratio 29.2 (10-20); Bilirubin Direct 5.8 mg/dl (0-0.2); Bilirubin,Total 7.1 mg/dl (0.2-1); Calcium 7.4 mg/dl (8.5-10.1); Creatinine Clr Calc Pharmacy 105.4 ml/min; Est GFR (African American) 113.8; Est GFR (Non-African American) 98.2; Magnesium 1.4 mg/dl (1.8-2.4); Phosphorus 3.5 mg/dl (2.5-4.9); Potassium 3.3 mmol/L (3.5-5.1); Total Protein 4.2 gm/dl (6.4-8.2)
[2020-06-04] MEDS ORDERED: ALBUMIN 25% 50 ML IV ONE (07:07)
--- NOTE | 2020-06-04 07:30 | Surgery Progress Note ---
Date of Service June 04, 2020 Assessment & Plan (1) Rupture of bowel: Stable from abdominal standpoint Only small amount of output from colostomy Would continue VICKY Peristalsis is audible Await speech pathology Follow the recommendations as he can take p.o. as per those recommendations. Remainder of supportive care as per internal medicine Admission and Anticipated Discharge Date Admission Date: May 11, 2020 Subjective Awake and alert this morning and answering questions Had episode of possible aspiration while swallowing liquids yesterday To undergo speech therapy evaluation today Did not have vomiting VICKY continues to put out large amounts of ascites Abdominal pain under control Physical Exam Gastrointestinal (Abdomen): Inspection/Auscultation: + abdomen distended and normal bowel sounds Percussion/Palpation: + abdomen tender (Mild incisional only) Small amount of brown fluid in ostomy bag, ostomy appears healthy Results & Data ([facility]) Vital Signs (Past 12 Hours) Vital Signs Temp Pulse Pulse Resp BP BP Pulse Ox 06/04/20 06:56 36.3 C L 86 14 90/61 L 94 06/04/20 03:06 36.9 C 88 13 113/75 96 06/04/20 00:00 89 06/03/20 22:59 36.5 C 88 24 113/79 94 06/03/20 22:35 102/73 06/03/20 22:10 115/79 06/03/20 20:20 100/67 06/03/20 20:03 86/61 L 06/03/20 19:58 98/67 L 06/03/20 19:35 36.5 C 83 18 83/52 L 94 Laboratory Results 06/04/20 06/04/20 06/03/20 Range/Units 05:36 05:36 21:56 WBC 18.04 H (4.8-10.8) K/uL RBC 3.10 L (4.7-6.1) M/uL Hgb 11.3 L (14.0-18.0) g/dL Hct 35.2 L (42-52) % MCV 113.5 H (80-100) fL MCH 36.5 H (25-34) pg MCHC 32.1 (32-36) g/dL RDW Std Deviation 60.6 H (36.4-46.3) fL RDW Coeff of [place] 14.9 H (11.5-14.5) % Plt Count 137 (130-400) K/uL MPV 11.6 H (7.4-10.4) fL Immature Gran % (Auto) 1.2 % Neut % (Auto) 84.8 % Lymph % (Auto) 6.8 % [place] % (Auto) 3.5 % Eos % (Auto) 3.6 % Baso % (Auto) 0.1 % Neut # (Auto) 15.31 H (1.4-6.5) K/uL Lymph # (Auto) 1.23 (1.2-3.4) K/uL [place] # (Auto) 0.63 H (0.11-0.59) K/uL Eos # (Auto) 0.65 H (0-0.5) K/uL Baso # (Auto) 0.01 (0-0.2) K/uL Immature Gran # (Auto) 0.21 H (0.00-0.02) K/uL Macrocytosis Present Sodium 145 145 (136-145) mmol/L Potassium 3.3 L 3.6 (3.5-5.1) mmol/L Chloride 116 H 115 H (98-107) mmol/L Carbon Dioxide 20 L 20 L (21-32) mmol/L Anion Gap 9.0 9.0 (3-11) BUN 24 H 25 H (7-18) mg/dl Creatinine 0.82 0.98 (0.6-1.4) mg/dl Est Cr Clr Drug Dosing 105.4 88.4 ml/min Est GFR ( Amer) 113.8 98.8 Est GFR (Non-Af Amer) 98.2 85.2 BUN/Creatinine Ratio 29.2 H 25.5 H (10-20) Glucose 110 H 102 H (70-99) mg/dl Calcium 7.4 L 7.4 L (8.5-10.1) mg/dl Phosphorus 3.5 (2.5-4.9) mg/dl Magnesium 1.4 L (1.8-2.4) mg/dl Total Bilirubin 7.1 H 6.3 H (0.2-1) mg/dl Direct Bilirubin 5.8 H (0-0.2) mg/dl AST 62 H 75 H (15-37) U/L ALT 49 54 (12-78) U/L Alkaline Phosphatase 182 H 179 H (45-117) U/L Total Protein 4.2 L 3.9 L (6.4-8.2) gm/dl Albumin 1.4 L 0.9 L (3.4-5.0) gm/dl Globulin 3.0 (2.5-4.0) gm/dl Albumin/Globulin Ratio 0.3 L (0.9-2) Procalcitonin (0-0.5) ng/ml 06/03/20 06/03/20 Range/Units 11:15 08:56 WBC (4.8-10.8) K/uL RBC (4.7-6.1) M/uL Hgb (14.0-18.0) g/dL Hct (42-52) % MCV (80-100) fL MCH (25-34) pg MCHC (32-36) g/dL RDW Std Deviation (36.4-46.3) fL RDW Coeff of [place] (11.5-14.5) % Plt Count (130-400) K/uL MPV (7.4-10.4) fL Immature Gran % (Auto) % Neut % (Auto) % Lymph % (Auto) % [place] % (Auto) % Eos % (Auto) % Baso % (Auto) % Neut # (Auto) (1.4-6.5) K/uL Lymph # (Auto) (1.2-3.4) K/uL [place] # (Auto) (0.11-0.59) K/uL Eos # (Auto) (0-0.5) K/uL Baso # (Auto) (0-0.2) K/uL Immature Gran # (Auto) (0.00-0.02) K/uL Macrocytosis Sodium (136-145) mmol/L Potassium (3.5-5.1) mmol/L Chloride (98-107) mmol/L Carbon Dioxide (21-32) mmol/L Anion Gap (3-11) BUN (7-18) mg/dl Creatinine (0.6-1.4) mg/dl Est Cr Clr Drug Dosing ml/min Est GFR ( Amer) Est GFR (Non-Af Amer) BUN/Creatinine Ratio (10-20) Glucose (70-99) mg/dl Calcium (8.5-10.1) mg/dl Phosphorus (2.5-4.9) mg/dl Magnesium 1.8 (1.8-2.4) mg/dl Total Bilirubin (0.2-1) mg/dl Direct Bilirubin (0-0.2) mg/dl AST (15-37) U/L ALT (12-78) U/L Alkaline Phosphatase (45-117) U/L Total Protein (6.4-8.2) gm/dl Albumin (3.4-5.0) gm/dl Globulin (2.5-4.0) gm/dl Albumin/Globulin Ratio (0.9-2) Procalcitonin 3.79 H (0-0.5) ng/ml
[2020-06-04] MEDS ORDERED: FOLIC ACID 1 MG in SYRINGE 9.8 ML IV SCH (09:00)
[2020-06-04] MEDS ORDERED: FOLIC ACID 1 MG TAB PO SCH (09:00)
[2020-06-04] MEDS: MAGNESIUM SULFATE / D5W 1 GM/100 ML BAG IV SCH ×3 (09:36→13:47)
[2020-06-04] MEDS: HEPARIN SOD 5,000 UNIT/0.5 ML VIAL SQ SCH (09:37)
[2020-06-04] MEDS: NICOTINE 21 MG/24 HR TDSY TD SCH (09:37)
[2020-06-04] MEDS: POTASSIUM CHLORIDE / WTR 20 MEQ/100 ML PLCT IV SCH ×3 (10:20→14:28)
--- NOTE | 2020-06-04 10:44 | Hospitalist Progress Note ---
Date of Service June 04, 2020 Assessment & Plan (1) Rupture of bowel: Patient acutely decompensated in the energy analyst hours of 05/30 he was sent to the ICU with a fever hypotension and required pressor support. CT scan of the abdomen pelvis revealed free air with concern for perforated sigmoid diverticulitis. Surgery discussed this with the family and decided to pursue surgical intervention here at [facility]. Patient underwent exploratory lap repair of ruptured viscus and colostomy placement on 05/30. patient tapered off pressors, extubated and breathing well, no further signs of septic shock on 06/04 he developed hypotension from low albumin, high output of ascites fluid from VICKY, over 1.5 liters in 24 hours now with ascites leaking through incision as well as leaking around the ostomy ostomy mucosa is dark, purple, no real GI output, just ascites multiple long discussions with patient and family regarding poor prognosis on 06/04 discussed that he will not recover patient elected to change to DNR will continue antibiotics for now, continue TPN consult palliative care Dilaudid 0.5mg IV q3 PRN for pain, can increase as needed patient states that he does not want to be in pain continue Vancomycin and Zosyn blood cultures with enterococcus, parabacteroides wound culture during OR with bacteroides and streptococcus species repeat blood cultures from 06/02 with no growth thus far WBC remains elevated (2) Acute metabolic encephalopathy: more alert and cooperative today, holding risperdal for now extubated and remains altered, has 1:1 very impulsive and has to be redirected often, pulling at lines, jones 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 remains on high-dose thiamine IV for prevention of Wernicke's encephalopathy. VBGs w/o hypercarbia. TSH, B12 wnl. ammonia wnl. MRI brain 05/23, no stroke, no tumor, no acute changes (3) Acute alcoholic hepatitis: Cirrhosis on imaging s/p NAC protocol. Patient previously was on steroids these have been discontinued in the postoperative period due to concern for infection Hep c RNa is negative bilirubin, still elevated check tomorrow now with signs of liver failure with low albumin, ascites his ostomy and abdominal incision cannot heal due to the constant pressure and drainage (4) Abdominal pain: due to perforated bowel, suspect sigmoid diverticuli Ostomy was placed. more pain today, will start Dilaudid PRN previously C diff negative, stool cx negative Patient had 2 L of ascites in his abdomen upon surgical entrance portal vein dopplers neg for PVT of note - esophageal varices were seen on CT abdomen. pt has stable hgb at this point (5) Ischemic cardiomyopathy: EF 40-45% on echo this admission - now with diagnosis of systolic heart failure gave Lasix IV on 06/03 now with high output from VICKY drain of ascites will hold on further Lasix as he is losing enough fluid no hypoxia at this time, acute heart failure resolved, volume overload due to as cites (6) Systolic CHF: EF 45% acute HF resolved (7) Acute respiratory failure with hypoxia: resolved, now extubated, on room air for a few days (8) Alcohol withdrawal: previously received IV ativan while in ICU. the ativan was stopped due to excess sedation in setting of copious use. 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 intake is also Severe protein calorie malnutrition with an albumin less than 1 CT head w/o stroke on 2 occasions MRI brain without stroke, done on 05/23 will need to address nutrition possible aspiration event on 06/03 and 06/04 will allow nectar thick liquids and pureed diet start TPN short term until goals of care determined (11) Muscle weakness: likely from his significant illness, now with two separate ICU stays (12) DVT prophylaxis: Heparin subcu for DVT prevention cont PT, OT if able to participate Patient is seriously ill and survival will be in question even though he is recovering from surgery, doubtful he will return to his prior state of being independent he will need prolonged physical rehab unsure if his mental state will ever return to normal (13) Tobacco use disorder: previously on nicoderm patch daily (14) Depression: needs Rx once mentation improved (15) Electrolyte abnormality: low magnesium, low potassium replaced via IV repeat tomorrow Admission and Anticipated Discharge Date Admission Date: May 11, 2020 Subjective patient not doing well today, significant drainage out of his VICKY, pure ascites coming out, yesterday had 1.7 liters out had hypotension overnight, responded well to Albumin IV this morning he continues to drain ascites from the VICKY, the midline incision, around the ostomy the ostomy itself was pink but now getting purple and dusky attempted to feed him, he choked and coughed on pureed diet evaluated by speech therapy, will give nectar thick liquids and pureed diet discussed with pharmacy, will start on TPN at this time met with patient's at the bedside and then later talked on the phone explained the grave situation, discussed that the ex lap saved his life on Tuesday but now we have complications that have no solution he cannot maintain hydration and nutrition with his abdomen draining ascites constantly he is losing albumin, his blood pressure is dropping he will never return to his prior level of independent living at best he will be in a SNF for the rest of his life but I have concerns that he will even survive this hospitalization talked with patient mother outside of the room as well, explained to her the poor prognosis she understood, all questions answered later in the day he started to have more drainage, ostomy looked worse, patient had abdominal pain he said to the aide with him that he felt like he was going to today I went up and spoke with him, he was alert and oriented we talked about the surgery, about his liver failure, his ascites I explained that he will likely suffer another significant event, either UTI, pneumonia, abdominal infection, bowel ischemia his heart could stop or he could stop breathing explained that we could perform CPR, intubated him, perform further invasive procedures or we could allow him to pass away peacefully he said fairly quickly that he would want to peacefully RN and two aides were in the room and witnessed our conversation I changed him to a DNR in the computer he said that he was having abdominal pain, he does not want to suffer I called his immediately after our conversation, explained that he is now a DNR, she agreed discussed palliative care consult tomorrow, she agreed she had questions about how long he would live, if he could just stay in the hospital I explained that we will take it day by day, get palliative care input tomorrow Review of Systems Review of Systems: All systems reviewed & are unremarkable except as noted in Subjective Constitutional: + fatigue and + weakness Gastrointestinal: + abdominal pain Physical Exam Constitutional: well developed and + ill appearing (appears older than age); no acute distress and + not well groomed Eyes: PERRL, conjunctivae normal, anicteric sclerae ENMT: external ear and nose normal, oropharynx normal Neck: trachea midline, no thyromegaly Respiratory: normal respiratory effort, lungs clear to auscultation Cardiovascular: Rate/Rhythm: regular rhythm and + tachycardic Heart Sounds: normal S1 and normal S2; no murmur Vessels: no JVD Extremities: normal capillary refill and + edema (pitting to knees bilaterally) Gastrointestinal (Abdomen): Inspection/Auscultation: + abdomen distended, + abdominal surgical incision, + abdominal surgical drain present (high output with ascites) and + hypoactive bowel sounds; + abdomen abnormal to inspection Percussion/Palpation: + abdomen tender and + ascites; no guarding, abdomen not rigid and + abdomen not soft ostomy with ascites around the ostomy, ostomy mucosa is dark purple Musculoskeletal: Head/Neck/Chest: normocephalic, head atraumatic and neck supple Extremities: extremities normal to inspection, + abnormal strength (generalized weakness) and + muscle atrophy; no cyanosis and no clubbing Skin: normal turgor and + jaundice; no rashes and no wound Neurologic: normal touch/pain/proprioception, CN's II-XI intact bilaterally and awake; no focal motor deficits Psychiatric: Orientation: alert, oriented to person, oriented to place and cooperative; + not oriented to time Lymphatic: no cervical or axillary lymphadenopathy Results & Data Results & Data ([facility]) Vital Signs (Past 12 Hours) Vital Signs Temp Pulse Pulse Resp BP BP Pulse Ox 06/04/20 06:56 36.3 C L 86 14 90/61 L 94 06/04/20 03:06 36.9 C 88 13 113/75 96 06/04/20 00:00 89 06/03/20 22:59 36.5 C 88 24 113/79 94 Laboratory Results Laboratory Results - last 24 hr 06/03/20 06/04/20 06/04/20 21:56 05:36 05:36 WBC 18.04 H RBC 3.10 L Hgb 11.3 L Hct 35.2 L MCV 113.5 H MCH 36.5 H MCHC 32.1 RDW Std Deviation 60.6 H RDW Coeff of [place] 14.9 H Plt Count 137 MPV 11.6 H Immature Gran % (Auto) 1.2 Neut % (Auto) 84.8 Lymph % (Auto) 6.8 [place] % (Auto) 3.5 Eos % (Auto) 3.6 Baso % (Auto) 0.1 Neut # (Auto) 15.31 H Lymph # (Auto) 1.23 [place] # (Auto) 0.63 H Eos # (Auto) 0.65 H Baso # (Auto) 0.01 Immature Gran # (Auto) 0.21 H Macrocytosis Present Sodium 145 145 Potassium 3.6 3.3 L Chloride 115 H 116 H Carbon Dioxide 20 L 20 L Anion Gap 9.0 9.0 BUN 25 H 24 H Creatinine 0.98 0.82 Est Cr Clr Drug Dosing 88.4 105.4 Est GFR ( Amer) 98.8 113.8 Est GFR (Non-Af Amer) 85.2 98.2 BUN/Creatinine Ratio 25.5 H 29.2 H Glucose 102 H 110 H Calcium 7.4 L 7.4 L Phosphorus 3.5 Magnesium 1.4 L Total Bilirubin 6.3 H 7.1 H Direct Bilirubin 5.8 H AST 75 H 62 H ALT 54 49 Alkaline Phosphatase 179 H 182 H Total Protein 3.9 L 4.2 L Albumin 0.9 L 1.4 L Globulin 3.0 Albumin/Globulin Ratio 0.3 L Medications Administered Current Inpatient Medications Albuterol (Albut/Ipratrop 3mg/0.5mg Neb 3 Ml Vial) 3 ml NEB Q4R PRN PRN Reason: wheeze Stop: 06/13/20 10:59 Benzocaine (Benzocaine 20% Aer Spr 82.5 Gm Can) 1 appln EXT UD PRN PRN Reason: Pain Stop: 06/14/20 11:17 Last Admin: 05/15/20 16:00 Dose: 1 appln Documented by: Dextrose (Dextrose 50% 50 Ml Syringe) 25 - 50 ml IV UD PRN; Protocol PRN Reason: Hypoglycemia Protocol Stop: 06/10/20 21:08 Last Admin: 05/30/20 04:32 Dose: 50 ml Documented by: Glucagon (Glucagon For Inj 1 Mg Vial) 1 mg SQ UD PRN; Protocol PRN Reason: Hypoglycemia Protocol Stop: 06/10/20 21:08 Glucose (Glucose 10 Tabs/Tube) 4 - 8 tabs PO UD PRN; Protocol PRN Reason: Hypoglycemia Protocol Stop: 06/10/20 21:08 Glucose (Glucose 40% Gel 15 Gm Tube) 15 - 30 gm PO UD PRN; Protocol PRN Reason: Hypoglycemia Protocol Stop: 06/10/20 21:08 Heparin Sodium (Beef Lung) (Heparin 10 Unit/Ml 5 Ml Flush) 5 ml FLUSH PRN PRN PRN Reason: Flush Stop: 06/29/20 22:41 Hydromorphone HCl (Hydromorphone Inj 0.5 Mg/0.5 Ml Syr) 0.5 mg IV Q3H PRN PRN Reason: Pain Stop: 06/18/20 14:59 Last Admin: 06/04/20 15:25 Dose: 0.5 mg Documented by: Thiamine HCl 200 mg/ Sodium (Chloride) 52 mls @ 208 mls/hr IV BID WESLY Stop: 06/16/20 12:29 Last Admin: 06/04/20 13:42 Dose: Not Given Documented by: Folic Acid 1 mg/ Syringe 10 mls @ 5 mls/min IV QAM WESLY Stop: 07/04/20 08:59 Last Admin: 06/04/20 09:38 Dose: 5 mls/min Documented by: Pantoprazole Sodium 40 mg/ (Syringe) 10 mls @ 5 mls/min IV DAILY@1100 [facility] Stop: 07/04/20 10:59 Last Admin: 06/04/20 12:23 Dose: 5 mls/min Documented by: Piperacillin Sod/Tazobactam (Sod 3.375 gm/ Dextrose) 115 mls @ 28.75 mls/hr IV Q8H WESLY; Protocol Stop: 06/14/20 01:59 Last Infusion: 06/04/20 16:12 Dose: Infused Documented by: Dextrose (D10w) 1,000 mls @ 0 mls/hr IV .Q0M PRN PRN Reason: protocol (see label comments) Stop: 07/04/20 15:59 Nutrition (Parenteral) 1,232. (06 ml/ TPN BAG) 1,232.06 mls @ 51.3 mls/hr IV .Q24H WESLY; Protocol Stop: 06/05/20 15:59 Last Admin: 06/04/20 16:14 Dose: 51.3 mls/hr Documented by: Miscellaneous (Carbohydrates For Hypoglycemia ) 15 - 30 gm PO UD PRN PRN Reason: Hypoglycemia Protocol Stop: 06/10/20 21:08 Miscellaneous (Remove Nicoderm Patch) 1 ea N/A DAILY@0859 [facility] Stop: 06/11/20 13:44 Last Admin: 06/04/20 09:37 Dose: 1 ea Documented by: Miscellaneous Information (Piperacill/Tazobac Consult Active) 1 ea N/A UD PRN PRN Reason: Consult Stop: 07/03/20 21:26 Miscellaneous Information (Tpn/Ppn Consult Pharmacy) 1 ea N/A UD [facility] Stop: 07/04/20 11:19 Morphine Sulfate (Morphine Sulfate 2 Mg/Ml Carp) 2 mg IV Q4H PRN PRN Reason: Pain Stop: 06/17/20 14:37 Morphine Sulfate (Morphine Sulfate 4 Mg/Ml 1 Ml Carp\Vial) 4 mg IV Q4H PRN PRN Reason: Severe Pain Stop: 06/17/20 14:37 Last Admin: 06/03/20 15:15 Dose: 4 mg Documented by: Nicotine (Nicotine 21 Mg/24 Hr Tdsy) 21 mg TD QAM [facility] Stop: 06/11/20 13:44 Last Admin: 06/04/20 09:37 Dose: 21 mg Documented by: Oxycodone HCl (Oxycodone Hcl Ir 5 Mg Tab (Immediate Release)) 5 mg PO Q6H PRN PRN Reason: Moderate Pain (4,5,6) on NRS Stop: 06/16/20 09:43 Oxycodone HCl (Oxycodone Hcl Ir 5 Mg Tab (Immediate Release)) 10 mg PO Q6H PRN PRN Reason: Severe Pain (7,8,9,10) on NRS Stop: 06/16/20 09:43 Last Admin: 06/03/20 08:38 Dose: 10 mg Documented by: PG Care Time/CCT Total # of Minutes Spent Total Time Spent: 105 Total Time Spent with Patient: Total time spent is greater than 50% in coordination of care (as documented) at patient's floor/unit and/or counseling patient: 20 minutes spent at bedside this morning with patient and his 15 minutes talking with his on the phone this morning after initial visit 15 minutes talking with patient's mother at the bedside 15 minutes spent again at the bedside with patient this afternoon talking about goals of care, changed to DNR [address] Ames, general surgery 10 minutes talking with a second time on the phone 20 minutes on reviewing labs, talking with pharmacy, documenting plan, talking with palliative care team Prolonged Care Time Prolonged Care Time: Yes Total Prolonged Care Time: 70 Coding Level of Care Code 50410 Subseq Hosp Care Lvl 3 Diagnoses Rupture of bowel K63.1 Acute metabolic encephalopathy G93.41 Acute alcoholic hepatitis K70.10 Abdominal pain R10.13 Abdominal location: epigastric Ischemic cardiomyopathy I25.5 Systolic CHF I50.20 Acute respiratory failure with hypoxia J96.01 Alcohol withdrawal F10.239 Alcohol dependence F10.229 Complication of substance-induced condition: with unspecified complication Substance use status: with intoxication Dysphagia R13.10 Dysphagia type: unspecified Muscle weakness M62.81 DVT prophylaxis Z29.9 Tobacco use disorder F17.200 Depression F32.9 Electrolyte abnormality E87.8 Additional Codes Prolonged Care Time - Prolonged Care Time: Yes ([id number]) (1) Alcohol dependence Complication of substance-induced condition: with unspecified complication Substance use status: with intoxication Qualified Code(s): F10.229 - Alcohol dependence with intoxication, unspecified (2) Dysphagia Dysphagia type: unspecified Qualified Code(s): R13.10 - Dysphagia, unspecified (3) Abdominal pain Abdominal location: epigastric Qualified Code(s): R10.13 - Epigastric pain
[2020-06-04] MEDS ORDERED: TPN/PPN CONSULT PHARMACY SCH (11:20)
--- NOTE | 2020-06-04 12:04 | Pharmacy Report ---
Pharmacy PN Initial Consult - Date of Service June 04, 2020 - Scope Pharmacy has been consulted to manage parenteral nutrition orders and order appropriate labs. As part of the Nutrition Support Team guidelines, pharmacy will work in conjunction with dietary when determining the patients caloric needs. - Subjective The patient is a 59 year old M admitted on 05/11/20 12:55 for ALI secondary to alcoholic hepatitis, alcohol withdrawal and dyspnea. On 05/30 patient developed septic shock from perforated bowel requiring abx, pressors and emergent surgery. He is now POD # 5 s/p exp lap w/ repair of ruptured viscus and colostomy placement. He has had several episodes of aspiration and per Hospitalist report, an NGT could not be placed (failed placement while in OR). Pertinent PMH: EtOH abuse Alcoholic hepatitis Cirrhosis Esophageal varicies GIB secondary to esophageal ulceration CAD PA s/p JEFFREY 2017 Cardiomyopathy (EF 40-45%) HLD HTN - Objective Height: 5 ft 6 in Weight: 91.7 kg Diet: NPO Vascular Access:: Right IJ Intake & Output (Last 24Hrs): Intake & Output 06/02/20 06/03/20 06/04/20 06/05/20 06:59 06:59 06:59 06:59 Intake Total 1932.000 / 9510.908 4402.333 / 2922.333 3371.500 / 3371.500 149.167 / 149.167 Output Total 4880 / 4880 4615 / 4615 4155 / 4155 1225 / 1225 Balance -2948.000 / -2948.000 -1692.667 / -1692.667 -783.500 / -783.500 - 1075.833 / -1075.833 Weight 95.8 kg 92.2 kg 91.7 kg Additional Fluid Losses/Gains:: VICKY drainage: 2305mL Colostomy drainage: 1225mL Laboratory Data (Last 24 Hrs):: 06/03/20 06/04/20 21:56 05:36 Sodium 145 145 Potassium 3.6 3.3 L Chloride 115 H 116 H Carbon Dioxide 20 L 20 L BUN 25 H 24 H Creatinine 0.98 0.82 Glucose 102 H 110 H Calcium 7.4 L 7.4 L Phosphorus 3.5 Magnesium 1.4 L Total Bilirubin 6.3 H 7.1 H AST 75 H 62 H ALT 54 49 Alkaline Phosphatase 179 H 182 H Albumin 0.9 L 1.4 L Recent Pertinent Medications:: D5 1/2 NS @50 cc/hr Zosyn (mixed in D5W) Pantoprazole IV Folic Acid IV Thiamine IV Postassium Cl IV repletion (60mEq total) Mag Sulfate IV repletion (3gm total) Nutrition Assessment:: Please refer to the Notes section of the EMR for the most recent drug abuse worker note. - Assessment POD # 5 s/p exp lap w/ repair of ruptured viscous and colostomy. Patient has campuzano d several episodes of aspiration preventing advancement of diet despite surgery authorization for enteral intake. NG tube unable to be placed in OR and Hospitalist doubtful that another attempt would be successful. Hospitalist has requested short term TPN provision with hopes patient's deconditioned status will improve and he will be able to consume PO in a few days. Patient no longer septic. Repeat blood cultures no growth to date. Prior blood cx's growing anaerobes and enterococcus. Patient is receiving appropriate abx therapy. Patient is experiencing significant 3rd spacing and provider would like to keep fluid provision limited to ~50cc/hr max rate for 1st bag of TPN. Maint IVFs will stop when 1st bag of TPN hung at 1600 today. He does have risk factors for volume overload (hepatic dz, CAD, cardiomyopathy). Renal fxn stable and producing adequate UOP. E-lytes reviewed. Potassium and Mag already repleted by Hospitalist. Hyperchloremic metabolic acidosis present, possibly from bicarb losses via colostomy. Will maximize acetate salts and minimize chloride. Patient may have impaired acetate metabolism in setting of hepatic dz. Would not anticipate him to be high risk for refeeding syndrome, but he does have e-lyte abnormalities and poor PO intake x 5 days. But normal phos level would contradict this. Will monitor lytes BID for 1st 24 hrs to screen for refeeding. Will provide judicous K, Mg, and Phos in 1st TPN bag. Will avoid fats in initial TPN given recent sepsis and bacteremia. - Plan For day 1 of PN administration, the following will be ordered: Macronutrients Amino acids 100 grams/day Dextrose 100 grams/day Lipids 0 grams/day Micronutrients Combined electrolytes 0 mL - contains 35 mEq Na, 20 meq K, 4.5 mEq Ca, 5 mEq Mg, 35 mEq Cl, 29.5 mEq acetate per 20 mL Sodium phosphate 0 MMol Sodium chloride 0 mEq Sodium acetate 50 mEq Potassium phosphate 24 mMol Potassium chloride 0 mEq Potassium acetate 60 mEq Magnesium sulfate 20.3 mEq Calcium gluconate 4.65 mEq Multivitamins 10 mL Trace Elements 1 mL Additional additives: Thiamine 400mg (was receiving for possible Wernicke Encephalopathy) + Folic acid 1mg Total volume 1236.06 mL (minimum volume) to be infused over 24 hrs will provide 740kcal/day Labs to be ordered per PN order protocol Pharmacy will follow and adjust parenteral nutrition orders on a daily basis. Thank you.
[2020-06-04] MEDS: PANTOprazole 40 MG in SYRINGE 0 ML IV SCH (12:23)
[2020-06-04] MEDS: THIAMINE HCL 200 MG in SODIUM CHLORIDE 0.9% 50 ML IV SCH ×2 (13:42→20:23)
[2020-06-04] MEDS: HYDROmorphone INJ 0.5 MG/0.5 ML SYR IV PRN ×2 (15:25→22:28)
[2020-06-04] MEDS ORDERED: [UNRECOGNIZED DRUG - REMARK] ONE (15:59)
[2020-06-04] MEDS ORDERED: DEXTROSE 10% 1,000 ML IV PRN (16:00)
[2020-06-04] MEDS ORDERED: TPN IV SCH ×3 (16:00)
[2020-06-04] MEDS ORDERED: CENTRAL PN IV SCH ×3 (16:00)
[2020-06-04] MEDS: RISPERIDONE ODT 1MG PO SCH (19:03)
[2020-06-04] MEDS: carvediloL 12.5 MG TAB PO SCH (19:03)
[2020-06-04] MEDS: LACTULOSE SYRUP 20 GM/30 ML UDC PO SCH (19:03)
[2020-06-04 20:33] LABS: BUN Creatinine Ratio 29.5 (10-20); Calcium 7.4 mg/dl (8.5-10.1); Creatinine Clr Calc Pharmacy 110.8 ml/min; Est GFR (African American) 116.1; Est GFR (Non-African American) 100.2; Magnesium 1.9 mg/dl (1.8-2.4); Phosphorus 2.7 mg/dl (2.5-4.9)
[2020-06-04 21:25] LABS: Potassium 3.9 mmol/L (3.5-5.1)
[2020-06-05] MEDS: PIPERACILLIN/TAZOBACTAM 3.375 GM in DEXTROSE 5% 100 ML IV SCH ×3 (01:30→17:20)
[2020-06-05 07:22] LABS: Basophils # (auto) 0.01 K/uL (0-0.2); Eosinophils # (auto) 0.68 K/uL (0-0.5); Eosinophils % (auto) 3.3 %; Hematocrit (blood only) 36.7 % (42-52); Hemoglobin 11.9 g/dL (14.0-18.0); Immature Granulocytes # (auto) 0.23 K/uL (0.00-0.02); Immature Granulocytes % (auto) 1.1 %; Lymphocytes # (auto) 0.93 K/uL (1.2-3.4); Lymphocytes % (auto) 4.6 %; Mean Corpuscular Hemoglobin 37.1 pg (25-34); Mean Corpuscular Hgb Conc 32.4 g/dL (32-36); Mean Corpuscular Volume 114.3 fL (80-100); Mean Platelet Volume 11.4 fL (7.4-10.4); Monocytes # (auto) 0.63 K/uL (0.11-0.59); Monocytes % (auto) 3.1 %; Neutrophils # (auto) 17.93 K/uL (1.4-6.5); Neutrophils % (auto) 87.9 %; Platelet Count 151 K/uL (130-400); RDW Coefficient of Variation 15.1 % (11.5-14.5); RDW Standard Deviation 61.6 fL (36.4-46.3); Red Blood Count 3.21 M/uL (4.7-6.1); White Blood Count 20.41 K/uL (4.8-10.8)
[2020-06-05] MEDS: MoRPHine SULFATE 4 MG/ML 1 ML CARP\\VIAL IV PRN ×4 (07:35→23:39)
[2020-06-05] MEDS: THIAMINE HCL 200 MG in SODIUM CHLORIDE 0.9% 50 ML IV SCH (07:36)
[2020-06-05] MEDS: NICOTINE 21 MG/24 HR TDSY TD SCH (07:36)
[2020-06-05 07:52] LABS: Macrocytosis Present
[2020-06-05 08:13] LABS: BUN Creatinine Ratio 36.8 (10-20); Calcium 7.3 mg/dl (8.5-10.1); Creatinine Clr Calc Pharmacy 127.3 ml/min; Est GFR (African American) 122.9; Magnesium 1.7 mg/dl (1.8-2.4); Phosphorus 2.9 mg/dl (2.5-4.9); Potassium 4.2 mmol/L (3.5-5.1)
--- NOTE | 2020-06-05 10:18 | Pharmacy Report ---
PHA: Parenteral Nutrition Con - Date of Service June 05, 2020 - Scope Pharmacy was consulted on 06/04/20 to manage parenteral nutrition orders for this patient. - Subjective The patient is currently on day [#] of [peripheral or central] parenteral nutrition for [INDICATION]. - Objective Height: 5 ft 6 in Weight: 92.1 kg Diet: NPO Vascular Access:: R IJ Intake & Output (24hrs):: Intake & Output 06/03/20 06/04/20 06/05/20 06/06/20 06:59 06:59 06:59 06:59 Intake Total 2922.333 / 2922.333 3371.500 / 3371.500 2421.167 / 2421.167 52 / 52 Output Total 4615 / 4615 4155 / 4155 3365 / 3365 300 / 300 Balance -1692.667 / -1692.667 -783.500 / -783.500 -943.833 / -943.833 -248 / - 248 Weight 92.2 kg 91.7 kg 91.7 kg 92.1 kg Additional Fluid Losses/Gains:: Colostomy output: 1875mL VICKY drainage: 515mL Urine output: 525mL Laboratory Data (Last 24 Hr):: 06/04/20 06/05/20 20:05 06:42 Sodium 141 142 Potassium 3.9 D 4.2 Chloride 114 H 114 H Carbon Dioxide 19 L 21 BUN 23 H 25 H Creatinine 0.78 0.68 Glucose 137 H 147 H Calcium 7.4 L 7.3 L Phosphorus 2.7 2.9 Magnesium 1.9 1.7 L Triglycerides Recent Pertinent Medications:: Zosyn (mixed in D5W) Thiamine IV Pantoprazole IV Nutrition Assessment:: Please refer to the Notes section of the EMR for the most recent engraver apprentice decorative note. - Assessment POD # 6 s/p exp lap w/ repair of ruptured viscous and colostomy. Patient has had several episodes of aspiration preventing advancement of diet despite surgery authorization for enteral intake. NG tube unable to be placed in OR and Hospitalist doubtful that another attempt would be successful. Hospitalist has requested short term TPN provision with hopes patient's deconditioned status will improve and he will be able to consume PO in a few days. VSS, non-hypotensive, O2 sats mid-90s on room air, afebrile. Repeat blood cultures no growth to date. Prior blood cx's growing anaerobes and enterococcus . Patient is receiving appropriate abx therapy. Patient is experiencing significant 3rd spacing and provider would like to keep fluid provision limited. Over the last several days, patient has had negative fluid balances from colostomy + VICKY output. Yesterday's TPN bag compounded with ~1.2L and ~10kcal/kg. In order to increase calories today a larger fluid volume will be required. Received approval from Hospitalist to increase volume of today's TPN to ~1.6L. UOP may be decreasing, SCr appears stable however although this is a delayed indicator of renal impairment. E-lytes reviewed. Mild hypomagnesmia present, will increase content in next bag. Will contact hospitalist for replacement order. Hyperchloremic metabolic acidosis improving - continue to maximize acetate salts and minimize chloride. Patient may have impaired acetate metabolism in setting of hepatic dz. Some insulin will be added to today's bag as well given one episode of hyperglycemia following TPN initiation and plans to up dextrose load today. Patient not currently displaying signs of refeeding syndrome. Will advance dextrose and total calories in today's bag. Will continue to avoid fats in TPN given recent sepsis and bacteremia. Unable to check triglycerides due to lab interference from icteris Unable to add thiamine to TPN bag due to TPN play reader limits. - Plan For day 2 of PN administration, the following will be ordered: Macronutrients Amino acids 125 grams/day Dextrose 175 grams/day Lipids 0 grams/day Micronutrients Combined electrolytes 0 mL - contains 35 mEq Na, 20 meq K, 4.5 mEq Ca, 5 mEq Mg, 35 mEq Cl, 29.5 mEq acetate per 20 mL Sodium phosphate 0 MMol Sodium chloride 0 mEq Sodium acetate 50 mEq Potassium phosphate 27 mMol Potassium chloride 0 mEq Potassium acetate 60 mEq Magnesium sulfate 28.42 mEq Calcium gluconate 4.65 mEq Multivitamins 10 mL Trace Elements 1 mL Additional additives: Folic Acid 1mg, Regular insulin 10 units Total volume 1592.3 mL to be infused over 24 hrs will provide 1095 kcal/day (~12kcal/kg/day). Goal kcal ~1600 / day Labs, as indicated, will be ordered per protocol Pharmacy will continue to follow and adjust parenteral nutrition orders on a daily basis. Thank you for allowing us to participate in the care of this patient.
[2020-06-05] MEDS: PANTOprazole 40 MG in SYRINGE 0 ML IV SCH (10:34)
[2020-06-05] MEDS: HYDROmorphone INJ 0.5 MG/0.5 ML SYR IV PRN (10:34)
--- NOTE | 2020-06-05 12:15 | Fluoroscopy Report ---
FL video swallow HISTORY: Possible pneumonia. assess for aspiration TECHNIQUE: Video fluoroscopic evaluation of swallowing was performed in the AP and lateral projection s by the speech pathology staff. The patient is fed nectar-thick and thin liquid barium, a barium coa roxie wafer, and barium pudding. FLUOROSCOPY TIME: 1.6 minutes. A cine loop submitted. COMPARISON STUDY: Video swallow 05/22/2020. FINDINGS: Premature spillover with moderate vallecular residue. There is normal hyoid excursion and e piglottic deflection. No significant penetration or aspiration identified. Swallowing function is wit hin normal limits. IMPRESSION: 1. No aspiration identified. 2. Please see the speech pathologist report for detailed findings and recommendations. ACT 112: Negative or not required by law. Electronically signed by: Aguila Alamo M.D. 06/05/2020 12:13 PM
--- NOTE | 2020-06-05 14:08 | Palliative Care Consultation ---
Date of Consultation June 05, 2020 Assessment & Plan (1) Goals of care, counseling/discussion: Patient is a 59-year-old male with a long history of alcohol abuse, cirrhosis, and Hep C who presented to [facility] on 05/11 complaining of shortness of breath. Patient was noted to be jaundiced. Patient was admitted for altered mental status, acute alcoholic hepatitis and ETOH withdraw. He was in the ICU and was stabilized. He was transferred to the floor and on 05/30 he was found to be SOB, tachycardic and hypotensive. CT scan showed pneumoperitoneum-his consented for exploratory lap where he was found to have perforated sigmoid diverticuli-he underwent bursectomy with formation of an ostomy. Patient's cirrhosis has continued to worsen-he is now in end-stage liver failure. Patient's bilirubin continues to increase, was 7.1 today, albumin has been 0.9- 1.4, INR was elevated on admission at 1.7, last check was 1.4. Patient continued to have altered mental status-CT and MRI showed no intracranial causes. - Spoke with patient-he stated "I am dying". Discussed with patient what care he would like to receive at this time-stated he did not want to prolong his dying. Discussed discontinuing some of his current treatment-patient agreeable to discontinuing IV fluids and TPN, stated he wanted to continue his IV antibiotics "a little bit longer". Patient ultimately would like to return home if possible. -Spoke with patient's , Tatiana, she supports his decision, his current CODE STATUS is DNR. -Spoke with when she arrived at bedside, appropriately tearful. Discussed comfort measures as well as his current medical issues. Goal was to keep patient comfortable -Discussed patient's wish to return home with , it would be difficult for her to care for him with all his current issues, she does not have family to help her at home. Discussed stopping some of his treatment and seeing how the patient does over the weekend. -Patient and have been for 15 years. -Patient has a daughter who is currently at college at [employer], she also works full-time. They have had a difficult relationship -she is planning to come in and visit [facility] rather than later this weekend. -Discussed end-of-life issues at length with at bedside. identified home as [facility] in [place]. - will continue to follow and provide support to patient's family as he approaches end of life. (2) Rupture of bowel: Status post resection with ostomy formation-bowel with ischemic changes (3) AMS (altered mental status): Due to cirrhosis as well as hyperbilirubinemia (4) Alcohol abuse: Longstanding with multiple hospitalizations (5) Jaundice: Bilirubin trending upward, 7.1 today (6) Liver cirrhosis: End-stage liver disease with an INR of 1.7 on admission, ascites, albumin 0.9-1.4 History of Present Illness Reason for Consultation: Address goals of care Requesting Physician: Dr. David Ackerman Attending Physician: David Ackerman, History of Present Illness Chart reviewed, patient seen and examined. No family at bedside. Did speak to patient's , Tatiana, as well as patient's mother. Patient is a 59-year-old male with a long history of alcohol abuse, cirrhosis, and Hep C who presented to [facility] on 05/11 complaining of shortness of breath. Patient was noted to be jaundiced. Patient was admitted for altered mental status, acute alcoholic hepatitis and ETOH withdraw. He was in the ICU and was stabilized. He was transferred to the floor and on 05/30 he was found to be SOB, tachycardic and hypotensive. CT scan showed pneumoperitoneum-his consented for exploratory lap where he was found to have perforated sigmoid diverticuli-he underwent bursectomy with formation of an ostomy. Patient's cirrhosis has continued to worsen-he is now in end-stage liver failure. Patient's bilirubin continues to increase, was 7.1 today, albumin has been 0.9-1.4, INR was elevated on admission at 1.7, last check was 1.4. Patient continued to have altered mental status-CT and MRI showed no intracranial causes. - Spoke with patient-he stated "I am dying". Discussed with patient what care he would like to receive at this time-stated he did not want to prolong his dying. Discussed discontinuing some of his current treatment-patient agreeable to discontinuing IV fluids and TPN, stated he wanted to continue his IV antibiotics "a little bit longer". Patient ultimately would like to return home if possible. -Spoke with patient's , Tatiana, she supports his decision, his current CODE STATUS is DNR. -Spoke with when she arrived at bedside, appropriately tearful. Discussed comfort measures as well as his current medical issues. Goal was to keep patient comfortable -Discussed patient's wish to return home with , it would be difficult for her to care for him with all his current issues, she does not have family to help her at home. Discussed stopping some of his treatment and seeing how the patient does over the weekend. -Patient and have been for 15 years. -Patient has a daughter who is currently at college at [employer], she also works full-time. They have had a difficult relationship -she is planning to come in and visit [facility] rather than later this weekend. -Discussed end-of-life issues at length with at bedside. identified home as [facility] in [place]. - will continue to follow and provide support to patient's family as he approaches end of life. Allergies Allergy/AdvReac Type Severity Reaction Status Date / Time No Known Allergies Allergy Unverified 02/05/20 08:04 Home Medications Home Medications Medication Instructions Recorded Confirmed Type atorvastatin 40 mg tablet 40 mg PO DAILY 04/23/19 02/05/20 History folic acid 400 mcg tablet 0.4 mg PO DAILY tab 04/23/19 02/05/20 History lisinopril 40 mg tablet 40 mg PO DAILY #1 tab 04/23/19 02/05/20 History carvedilol 25 mg tablet 25 mg PO BID #60 tab 05/17/19 02/05/20 Rx Clayton-3 1 cap PO DAILY 10/22/19 02/05/20 History ascorbic acid (vitamin C) [Vitamin 1,000 mg PO DAILY 10/22/19 02/05/20 History C] aspirin [Aspir-Low] 81 mg PO DAILY 10/22/19 02/05/20 History coenzyme Q10 [Co Q-10] 200 mg PO DAILY 10/22/19 02/05/20 History glucosamine-chondroitin [Osteo 1 tab PO BID 10/22/19 02/05/20 History Bi-Flex] milk thistle 1,000 mg PO BID 10/22/19 02/05/20 History nitroglycerin [Nitrostat] 0.4 mg SUBLINGUAL UD PRN 10/22/19 02/05/20 History vitamin B complex 1 tab PO DAILY 10/22/19 02/05/20 History meloxicam 15 mg tablet 15 mg PO DAILY #30 tab 11/01/19 02/05/20 Rx lorazepam 1 mg PO Q12H PRN #10 tab 11/22/19 02/05/20 Rx acetaminophen 300 mg-codeine 30 mg 1 tab PO TID PRN #90 tab 02/04/20 02/05/20 Rx tablet clopidogrel 75 mg tablet 75 mg PO DAILY #30 tab 02/04/20 02/05/20 Rx Patient History Medical History Alcohol dependence Alcohol withdrawal AMS (altered mental status) C. difficile diarrhea CAD (coronary artery disease) "03/29/2017 - anterior STEMI, s/p JEFFREY to LAD" History of Clostridioides difficile colitis History of GI bleed "secondary to esophageal ulceration on EGD 11/29/2013" HTN (hypertension) Hyperlipidemia LDL goal <70 Ischemic cardiomyopathy "EF 30-35%" Obesity Pneumonia Renal artery stenosis "questionable" Septic shock Surgical History H/O esophagogastroduodenoscopy "11/29/2013- Large lower esophageal ulceration. No bleeding. Portal hypertensive gastropathy. Erythematous duodenopathy. Normal 2nd part of the duodenum." Social History Smoking Status: Current every day smoker Tobacco Type: Cigarettes Cigarettes Per Day: 20; Second Hand Exposure: No; Hx Alcohol Use: Yes Alcohol type: beer Alcohol Intake Frequency Comment: 30 beers a day for the last 6 weeks Hx Substance Use: No Preferred Language: Occitan Communication Ability: Unable Liner Inserter Required: No Beliefs That Will Affect Care: None marital status: Current Living Situation: Spouse Feels Safe at Home: Yes Review of Systems Review of Systems: Unable to obtain due to severe fatigue and confusion Physical Exam Physical Exam: PE: Patient alert for short periods of time, appears comfortable at rest HEENT: EOMI, scleral icterus Respirations: Positive transmitted upper airway sounds, diminished breath sound at bases CV: Tachycardic Abdomen: Distended, nontender to light palpation. Serosanguineous drainage from midline abdominal surgical site. Ostomy with increased ischemic tissue Neuro: Confused, increased somnolence Results & Data ([facility]) Vital Signs (Past 12 Hours) Vital Signs Temp Pulse Pulse Resp BP Pulse Ox 06/05/20 12:24 97.2 F L 110 H 16 94/67 L 95 06/05/20 07:49 95 H 06/05/20 07:05 98.2 F 94 H 16 117/81 96 06/05/20 03:19 98.4 F 93 H 16 113/80 96 PG Care Time/CCT Total # of Minutes Spent Total Time Spent with Patient: Total time spent 70 minutes with greater than 50% of the time spent at bedside evaluating patient's goals of care as well as d iscussing goals and end-of-life issues at length with family at bedside as well as collaborating with attending physician on the unit Coding Level of Care Code 36773 Inpt Consult Level 3 Diagnoses Goals of care, counseling/discussion Z71.89 Rupture of bowel K63.1 AMS (altered mental status) R41.82 Alcohol abuse F10.10 Jaundice R17 Liver cirrhosis K74.60 Time Spent (min) 70
--- NOTE | 2020-06-05 14:25 | Hospitalist Progress Note ---
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 CT scan of the abdomen pelvis revealed free air with concern for perforated sigmoid diverticulitis. Surgery discussed this with the family and decided to pursue surgical intervention here at [facility]. Patient underwent exploratory lap repair of ruptured viscus and colostomy placement on 05/30. patient tapered off pressors, extubated and breathing well, no further signs of septic shock on 06/04 he developed hypotension from low albumin, high output of ascites fluid from VICKY, over 1.5 liters in 24 hours now with ascites leaking through incision as well as leaking around the ostomy ostomy mucosa is dark, purple, no real GI output, just ascites multiple long discussions with patient and family regarding poor prognosis on 06/04 discussed that he will not recover patient elected to change to DNR palliative care on 06/05, will stop TPN, continue antibiotics for now make patient comfortable, Morphine q2 and Dilaudid q4 transfer to medical floor continue Vancomycin and Zosyn blood cultures with enterococcus, parabacteroides wound culture during OR with bacteroides and streptococcus species repeat blood cultures from 06/02 with no growth thus far WBC remains elevated at 20k no further labs (2) Acute metabolic encephalopathy: more alert and cooperative today, able to participate in talks regarding comfort care he does not want to linger 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 CT head 05/11 and 05/17 negative for acute process. remains on high-dose thiamine IV for prevention of Wernicke's encephalopathy. VBGs w/o hypercarbia. TSH, B12 wnl. ammonia wnl. MRI brain 05/23, no stroke, no tumor, no acute changes (3) Acute alcoholic hepatitis: Cirrhosis on imaging s/p NAC protocol. Patient previously was on steroids these have been discontinued in the postoperative period due to concern for infection Hep c RNa is negative bilirubin, still elevated now with signs of liver failure with low albumin, ascites his ostomy and abdominal incision cannot heal due to the constant pressure and drainage (4) Abdominal pain: due to perforated bowel, suspect sigmoid diverticuli Ostomy was placed. more pain today, will start Dilaudid PRN previously C diff negative, stool cx negative Patient had 2 L of ascites in his abdomen upon surgical entrance portal vein dopplers neg for PVT of note - esophageal varices were seen on CT abdomen. pt has stable hgb at this point (5) Ischemic cardiomyopathy: EF 40-45% on echo this admission - now with diagnosis of systolic heart failure gave Lasix IV on 06/03 now with high output from VICKY drain of ascites will hold on further Lasix as he is losing enough fluid no hypoxia at this time, acute heart failure resolved, volume overload due to ascites (6) Systolic CHF: EF 45% acute HF resolved (7) Acute respiratory failure with hypoxia: resolved, now extubated, on room air for a few days (8) Alcohol withdrawal: previously received IV ativan while in ICU. the ativan was stopped due to excess sedation in setting of copious use. 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 intake is also Severe protein calorie malnutrition with an albumin less than 1 CT head w/o stroke on 2 occasions MRI brain without stroke, done on 05/23 will need to address nutrition possible aspiration event on 06/03 and 06/04 will allow nectar thick liquids and pureed diet start TPN short term until goals of care determined (11) Muscle weakness: likely from his significant illness, now with two separate ICU stays (12) DVT prophylaxis: Heparin subcu for DVT prevention cont PT, OT if able to participate Patient is seriously ill and survival will be in question even though he is recovering from surgery, doubtful he will return to his prior state of being independent he will need prolonged physical rehab unsure if his mental state will ever return to normal (13) Tobacco use disorder: previously on nicoderm patch daily (14) Depression: needs Rx once mentation improved (15) Electrolyte abnormality: low magnesium, low potassium replaced via IV repeat tomorrow Admission and Anticipated Discharge Date Admission Date: May 11, 2020 Subjective patient resting comfortably has some abdominal pain, relieved with Morphine, will make it more frequent no dyspnea, no fever, no chest pain labs reviewed, WBC up to 20k, K 4.2, Cr 0.68, Mag 1.7 Dr. Hsu spoke with the patient and his will stop TPN, continue antibiotics for now but comfort is goal, patient does not want this to linger on, he is suffering with has abdominal pain he is alert and oriented today, able to make decisions Review of Systems Review of Systems: All systems reviewed & are unremarkable except as noted in Subjective Constitutional: + fatigue and + weakness Gastrointestinal: + abdominal pain; no nausea and no vomiting Physical Exam Constitutional: well developed and + ill appearing (appears older than age); no acute distress and + not well groomed Eyes: PERRL, conjunctivae normal, anicteric sclerae ENMT: external ear and nose normal, oropharynx normal Neck: trachea midline, no thyromegaly Respiratory: normal respiratory effort, lungs clear to auscultation Cardiovascular: Rate/Rhythm: regular rate and regular rhythm Heart Sounds: normal S1 and normal S2; no murmur Vessels: no JVD Extremities: normal capillary refill and + edema (pitting to knees bilaterally) Gastrointestinal (Abdomen): Inspection/Auscultation: + abdomen distended, + abdominal surgical incision, + abdominal surgical drain present (high output with ascites) and + hypoactive bowel sounds; + abdomen abnormal to inspection Percussion/Palpation: + abdomen tender and + ascites; no guarding, abdomen not rigid and + abdomen not soft Musculoskeletal: Head/Neck/Chest: normocephalic, head atraumatic and neck supple Extremities: extremities normal to inspection, + abnormal strength (generalized weakness) and + muscle atrophy; no cyanosis and no clubbing Skin: normal turgor and + jaundice; no rashes and no wound Neurologic: normal touch/pain/proprioception, CN's II-XI intact bilaterally and awake; no focal motor deficits Psychiatric: Orientation: alert, oriented to person, oriented to place and cooperative; + not oriented to time Lymphatic: no cervical or axillary lymphadenopathy Results & Data Results & Data ([facility]) Vital Signs (Past 12 Hours) Vital Signs Temp Pulse Pulse Resp BP Pulse Ox 06/05/20 12:24 36.2 C L 110 H 16 94/67 L 95 06/05/20 07:49 95 H 06/05/20 07:05 36.8 C 94 H 16 117/81 96 06/05/20 03:19 36.9 C 93 H 16 113/80 96 Laboratory Results Laboratory Results - last 24 hr 0906/04/20 06/05/20 20:05 20:33 00:15 WBC RBC Hgb Hct MCV MCH MCHC RDW Std Deviation RDW Coeff of [place] Plt Count MPV Immature Gran % (Auto) Neut % (Auto) Lymph % (Auto) [place] % (Auto) Eos % (Auto) Baso % (Auto) Neut # (Auto) Lymph # (Auto) [place] # (Auto) Eos # (Auto) Baso # (Auto) Immature Gran # (Auto) Macrocytosis Sodium 141 Potassium 3.9 D Chloride 114 H Carbon Dioxide 19 L Anion Gap 8.0 BUN 23 H Creatinine 0.78 Est Cr Clr Drug Dosing 110.8 Est GFR ( Amer) 116.1 Est GFR (Non-Af Amer) 100.2 BUN/Creatinine Ratio 29.5 H Glucose 137 H POC Glucose 125 H 195 H Calcium 7.4 L Phosphorus 2.7 Magnesium 1.9 Triglycerides Miscellaneous Test 06/05/20 06/05/20 06/05/20 06:09 06:42 06:42 WBC 20.41 H RBC 3.21 L Hgb 11.9 L Hct 36.7 L MCV 114.3 H MCH 37.1 H MCHC 32.4 RDW Std Deviation 61.6 H RDW Coeff of [place] 15.1 H Plt Count 151 MPV 11.4 H Immature Gran % (Auto) 1.1 Neut % (Auto) 87.9 Lymph % (Auto) 4.6 [place] % (Auto) 3.1 Eos % (Auto) 3.3 Baso % (Auto) 0.0 Neut # (Auto) 17.93 H Lymph # (Auto) 0.93 L [place] # (Auto) 0.63 H Eos # (Auto) 0.68 H Baso # (Auto) 0.01 Immature Gran # (Auto) 0.23 H Macrocytosis Present Sodium 142 Potassium 4.2 Chloride 114 H Carbon Dioxide 21 Anion Gap 7.0 BUN 25 H Creatinine 0.68 Est Cr Clr Drug Dosing 127.3 Est GFR ( Amer) 122.9 Est GFR (Non-Af Amer) 106.0 BUN/Creatinine Ratio 36.8 H Glucose 147 H POC Glucose 151 H Calcium 7.3 L Phosphorus 2.9 Magnesium 1.7 L Triglycerides Miscellaneous Test 06/05/20 06/05/20 06:42 12:20 WBC RBC Hgb Hct MCV MCH MCHC RDW Std Deviation RDW Coeff of [place] Plt Count MPV Immature Gran % (Auto) Neut % (Auto) Lymph % (Auto) [place] % (Auto) Eos % (Auto) Baso % (Auto) Neut # (Auto) Lymph # (Auto) [place] # (Auto) Eos # (Auto) Baso # (Auto) Immature Gran # (Auto) Macrocytosis Sodium Potassium Chloride Carbon Dioxide Anion Gap BUN Creatinine Est Cr Clr Drug Dosing Est GFR ( Amer) Est GFR (Non-Af Amer) BUN/Creatinine Ratio Glucose POC Glucose 132 H Calcium Phosphorus Magnesium Triglycerides Miscellaneous Test Pending Medications Administered Current Inpatient Medications Albuterol (Albut/Ipratrop 3mg/0.5mg Neb 3 Ml Vial) 3 ml NEB Q4R PRN PRN Reason: wheeze Stop: 06/13/20 10:59 Benzocaine (Benzocaine 20% Aer Spr 82.5 Gm Can) 1 appln EXT UD PRN PRN Reason: Pain Stop: 06/14/20 11:17 Last Admin: 05/15/20 16:00 Dose: 1 appln Documented by: Dextrose (Dextrose 50% 50 Ml Syringe) 25 - 50 ml IV UD PRN; Protocol PRN Reason: Hypoglycemia Protocol Stop: 06/10/20 21:08 Last Admin: 05/30/20 04:32 Dose: 50 ml Documented by: Glucagon (Glucagon For Inj 1 Mg Vial) 1 mg SQ UD PRN; Protocol PRN Reason: Hypoglycemia Protocol Stop: 06/10/20 21:08 Glucose (Glucose 10 Tabs/Tube) 4 - 8 tabs PO UD PRN; Protocol PRN Reason: Hypoglycemia Protocol Stop: 06/10/20 21:08 Glucose (Glucose 40% Gel 15 Gm Tube) 15 - 30 gm PO UD PRN; Protocol PRN Reason: Hypoglycemia Protocol Stop: 06/10/20 21:08 Heparin Sodium (Beef Lung) (Heparin 10 Unit/Ml 5 Ml Flush) 5 ml FLUSH PRN PRN PRN Reason: Flush Stop: 06/29/20 22:41 Hydromorphone HCl (Hydromorphone Inj 0.5 Mg/0.5 Ml Syr) 0.5 mg IV Q3H PRN PRN Reason: Pain Stop: 06/18/20 14:59 Last Admin: 06/05/20 10:34 Dose: 0.5 mg Documented by: Pantoprazole Sodium 40 mg/ (Syringe) 10 mls @ 5 mls/min IV DAILY@1100 [facility] Stop: 07/04/20 10:59 Last Admin: 06/05/20 10:34 Dose: 5 mls/min Documented by: Piperacillin Sod/Tazobactam (Sod 3.375 gm/ Dextrose) 115 mls @ 28.75 mls/hr IV Q8H [facility]; Protocol Stop: 06/14/20 01:59 Last Admin: 06/05/20 10:34 Dose: 28.8 mls/hr Documented by: Miscellaneous (Carbohydrates For Hypoglycemia ) 15 - 30 gm PO UD PRN PRN Reason: Hypoglycemia Protocol Stop: 06/10/20 21:08 Miscellaneous (Remove Nicoderm Patch) 1 ea N/A DAILY@0859 [facility] Stop: 06/11/20 13:44 Last Admin: 06/05/20 07:36 Dose: 1 ea Documented by: Miscellaneous Information (Piperacill/Tazobac Consult Active) 1 ea N/A UD PRN PRN Reason: Consult Stop: 07/03/20 21:26 Morphine Sulfate (Morphine Sulfate 4 Mg/Ml 1 Ml Carp\Vial) 4 mg IV Q2H PRN PRN Reason: Pain Stop: 06/19/20 11:33 Last Admin: 06/05/20 13:40 Dose: 4 mg Documented by: Nicotine (Nicotine 21 Mg/24 Hr Tdsy) 21 mg TD QAM [facility] Stop: 06/11/20 13:44 Last Admin: 06/05/20 07:36 Dose: 21 mg Documented by: PG Care Time/CCT Total # of Minutes Spent Total Time Spent with Patient: Total time spent is greater than 50% in coordination of care (as documented) at patient's floor/unit and/or counseling patient: Coding Level of Care Code 51242 Subseq Hosp Care Lvl 2 Diagnoses Rupture of bowel K63.1 Acute metabolic encephalopathy G93.41 Acute alcoholic hepatitis K70.10 Abdominal pain R10.13 Abdominal location: epigastric Ischemic cardiomyopathy I25.5 Systolic CHF I50.20 Acute respiratory failure with hypoxia J96.01 Alcohol withdrawal F10.239 Alcohol dependence F10.229 Complication of substance-induced condition: with unspecified complication Substance use status: with intoxication Dysphagia R13.10 Dysphagia type: unspecified Muscle weakness M62.81 DVT prophylaxis Z29.9 Tobacco use disorder F17.200 Depression F32.9 Electrolyte abnormality E87.8 (1) Alcohol dependence Complication of substance-induced condition: with unspecified complication Substance use status: with intoxication Qualified Code(s): F10.229 - Alcohol dependence with intoxication, unspecified (2) Dysphagia Dysphagia type: unspecified Qualified Code(s): R13.10 - Dysphagia, unspecifi ed (3) Abdominal pain Abdominal location: epigastric Qualified Code(s): R10.13 - Epigastric pain
[2020-06-05] MEDS ORDERED: TPN IV SCH (16:00)
[2020-06-05] MEDS ORDERED: CENTRAL PN IV SCH (16:00)
[2020-06-06] MEDS: PIPERACILLIN/TAZOBACTAM 3.375 GM in DEXTROSE 5% 100 ML IV SCH ×3 (01:25→18:15)
[2020-06-06] MEDS: NICOTINE 21 MG/24 HR TDSY TD SCH (09:30)
[2020-06-06] MEDS: MoRPHine SULFATE 4 MG/ML 1 ML CARP\\VIAL IV PRN (10:39)
[2020-06-06] MEDS: MoRPHine SULF/NSS 250 MG/250 ML BTL IV PRN (12:29)
[2020-06-06] MEDS: PANTOprazole 40 MG in SYRINGE 0 ML IV SCH (12:46)
--- NOTE | 2020-06-06 16:14 | Hospitalist Progress Note ---
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 CT scan of the abdomen pelvis revealed free air with concern for perforated sigmoid diverticulitis. Surgery discussed this with the family and decided to pursue surgical intervention here at [facility]. Patient underwent exploratory lap repair of ruptured viscus and colostomy placement on 05/30. patient tapered off pressors, extubated and breathing well, no further signs of septic shock on 06/04 he developed hypotension from low albumin, high output of ascites fluid from VICKY, over 1.5 liters in 24 hours now with ascites leaking through incision as well as leaking around the ostomy ostomy mucosa is dark, purple, no real GI output, just ascites multiple long discussions with patient and family regarding poor prognosis on 06/04 discussed that he will not recover patient elected to change to DNR palliative care on 06/05, will stop TPN, stop antibiotics make patient comfortable Morphine drip started on 06/06 due to inadequate pain control with PRN Morphine titrate up for patient to be comfortable, okay if he develops drowsiness family at the bedside (2) Acute metabolic encephalopathy: more alert and cooperative today, able to participate in talks regarding comfort care he does not want to linger 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 CT head 05/11 and 05/17 negative for acute process. remains on high-dose thiamine IV for prevention of Wernicke's encephalopathy. VBGs w/o hypercarbia. TSH, B12 wnl. ammonia wnl. MRI brain 05/23, no stroke, no tumor, no acute changes (3) Acute alcoholic hepatitis: Cirrhosis on imaging s/p NAC protocol. Patient previously was on steroids these have been discontinued in the postoperative period due to concern for infection Hep c RNa is negative bilirubin, still elevated now with signs of liver failure with low albumin, ascites his ostomy and abdominal incision cannot heal due to the constant pressure and drainage (4) Abdominal pain: due to perforated bowel, suspect sigmoid diverticuli Ostomy was placed. more pain today, will start Dilaudid PRN previously C diff negative, stool cx negative Patient had 2 L of ascites in his abdomen upon surgical entrance portal vein dopplers neg for PVT of note - esophageal varices were seen on CT abdomen. pt has stable hgb at this point (5) Ischemic cardiomyopathy: EF 40-45% on echo this admission - now with diagnosis of systolic heart failure gave Lasix IV on 06/03 now with high output from VICKY drain of ascites will hold on further Lasix as he is losing enough fluid no hypoxia at this time, acute heart failure resolved, volume overload due to ascites (6) Systolic CHF: EF 45% acute HF resolved (7) Acute respiratory failure with hypoxia: resolved, now extubated, on room air for a few days (8) Alcohol withdrawal: previously received IV ativan while in ICU. the ativan was stopped due to excess sedation in setting of copious use. 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 intake is also Severe protein calorie malnutrition with an albumin less than 1 CT head w/o stroke on 2 occasions MRI brain without stroke, done on 05/23 will need to address nutrition possible aspiration event on 06/03 and 06/04 will allow nectar thick liquids and pureed diet start TPN short term until goals of care determined (11) Muscle weakness: likely from his significant illness, now with two separate ICU stays (12) DVT prophylaxis: Heparin subcu for DVT prevention cont PT, OT if able to participate Patient is seriously ill and survival will be in question even though he is recovering from surgery, doubtful he will return to his prior state of being independent he will need prolonged physical rehab unsure if his mental state will ever return to normal (13) Tobacco use disorder: previously on nicoderm patch daily (14) Depression: needs Rx once mentation improved (15) Electrolyte abnormality: low magnesium, low potassium replaced via IV repeat tomorrow Admission and Anticipated Discharge Date Admission Date: May 11, 2020 Subjective patient in pain, 8 out of 10 placed on morphine drip, start at 4mg/hr, told RN to increase as needed patient and his family just want him to be comfortable comfort measures only, family can be at the bedside Review of Systems Review of Systems: Unobtainable due to reduced consciousness (admits to abdominal pain) Physical Exam Constitutional: well developed and + ill appearing (appears older than age); no acute distress Eyes: sclerae not anicteric ENMT: external ear and nose normal, oropharynx normal Neck: trachea midline, no thyromegaly Respiratory: normal respiratory effort, lungs clear to auscultation Cardiovascular: Rate/Rhythm: regular rate and regular rhythm Heart Sounds: normal S1 and normal S2; no murmur Vessels: no JVD Extremities: normal capillary refill and + edema (pitting to knees bilaterally) Gastrointestinal (Abdomen): Inspection/Auscultation: + abdomen distended, + abdominal surgical incision, + abdominal surgical drain present (high output with ascites) and + hypoactive bowel sounds; + abdomen abnormal to inspection Percussion/Palpation: + abdomen tender and + ascites; no guarding, abdomen not rigid and + abdomen not soft Musculoskeletal: Head/Neck/Chest: normocephalic, head atraumatic and neck supple Extremities: extremities normal to inspection, + abnormal strength (generalized weakness) and + muscle atrophy; no cyanosis and no clubbing Skin: normal turgor and + jaundice; no rashes and no wound Neurologic: normal touch/pain/proprioception, CN's II-XI intact bilaterally and awake; no focal motor deficits Psychiatric: Orientation: alert, oriented to person, oriented to place and cooperative; + not oriented to time Lymphatic: no cervical or axillary lymphadenopathy Results & Data Results & Data ([facility]) Vital Signs (Past 12 Hours) Vital Signs Temp Pulse Resp BP Pulse Ox 06/06/20 06:05 36.4 C L 84 18 101/68 97 Medications Administered Current Inpatient Medications Heparin Sodium (Beef Lung) (Heparin 10 Unit/Ml 5 Ml Flush) 5 ml FLUSH PRN PRN PRN Reason: Flush Stop: 06/29/20 22:41 Last Admin: 06/06/20 22:04 Dose: 5 ml Documented by: Hydromorphone HCl (Hydromorphone Inj 0.5 Mg/0.5 Ml Syr) 0.5 mg IV Q3H PRN PRN Reason: Pain Stop: 06/18/20 14:59 Last Admin: 06/05/20 10:34 Dose: 0.5 mg Documented by: Pantoprazole Sodium 40 mg/ (Syringe) 10 mls @ 5 mls/min IV DAILY@1100 [facility] Stop: 07/04/20 10:59 Last Admin: 06/06/20 12:46 Dose: 5 mls/min Documented by: Piperacillin Sod/Tazobactam (Sod 3.375 gm/ Dextrose) 115 mls @ 28.75 mls/hr IV Q8H [facility]; Protocol Stop: 06/14/20 01:59 Last Admin: 06/06/20 18:15 Dose: 28.8 mls/hr Documented by: Morphine Sulfate (Morphine Sulf/Nss) 250 mg in 250 mls @ 6 mls/hr IV .[id number] PRN; Protocol PRN Reason: Pain Stop: 06/20/20 11:11 Last Titration: 06/06/20 13:27 Dose: 6 mg/hr, 6 mls/hr Documented by: Miscellaneous (Remove Nicoderm Patch) 1 ea N/A DAILY@0859 [facility] Stop: 06/11/20 13:44 Last Admin: 06/06/20 09:30 Dose: 1 ea Documented by: Miscellaneous Information (Piperacill/Tazobac Consult Active) 1 ea N/A UD PRN PRN Reason: Consult Stop: 07/03/20 21:26 Morphine Sulfate (Morphine Sulfate 4 Mg/Ml 1 Ml Carp\Vial) 4 mg IV Q2H PRN PRN Reason: Pain Stop: 06/19/20 11:33 Last Admin: 06/06/20 10:39 Dose: 4 mg Documented by: Nicotine (Nicotine 21 Mg/24 Hr Tdsy) 21 mg TD QAM [facility] Stop: 06/11/20 13:44 Last Admin: 06/06/20 09:30 Dose: 21 mg Documented by: PG Care Time/CCT Total # of Minutes Spent Total Time Spent with Patient: Total time spent is greater than 50% in coordination of care (as documented) at patient's floor/unit and/or counseling patient: Coding Level of Care Code 18970 Subseq Hosp Care Lvl 2 Diagnoses Rupture of bowel K63.1 Acute metabolic encephalopathy G93.41 Acute alcoholic hepatitis K70.10 Abdominal pain R10.13 Abdominal location: epigastric Ischemic cardiomyopathy I25.5 Systolic CHF I50.20 Acute respiratory failure with hypoxia J96.01 Alcohol withdrawal F10.239 Alcohol dependence F10.229 Complication of substance-induced condition: with unspecified complication Substance use status: with intoxication Dysphagia R13.10 Dysphagia type: unspecified Muscle weakness M62.81 DVT prophylaxis Z29.9 Tobacco use disorder F17.200 Depression F32.9 Electrolyte abnormality E87.8 (1) Alcohol dependence Complication of substance-induced condition: with unspecified complication Substance use status: with intoxication Qualified Code(s): F10.229 - Alcohol dependence with intoxication, unspecified (2) Dysphagia Dysphagia type: unspecified Qualified Code(s): R13.10 - Dysphagia, unspecified (3) Abdominal pain Abdominal location: epigastric Qualified Code(s): R10.13 - Epigastric pain
[2020-06-07] MEDS: PIPERACILLIN/TAZOBACTAM 3.375 GM in DEXTROSE 5% 100 ML IV SCH ×2 (02:07→11:01)
[2020-06-07] MEDS: NICOTINE 21 MG/24 HR TDSY TD SCH (09:37)
[2020-06-07] MEDS: PANTOprazole 40 MG in SYRINGE 0 ML IV SCH (11:01)
--- NOTE | 2020-06-07 12:46 | Palliative Care Progress Note ---
Date of Service June 07, 2020 Assessment & Plan (1) Goals of care, counseling/discussion: -Visited patients room. Multiple family members, including his mother at his bedside. -Patient currently has Morphine gtt infusing at 8mg/hour. -Audible secretions noted and patient with agonal breathing and > 15 second pauses while I was in the room. + diaphragmatic breathing. -Lengthy conversation held regarding end of life and anticipated symptoms. -Discussed at length with patients RN Charity. I did stop all IV antibiotics and other medications that do not focus on comfort. Family in agreement. -I ordered IV Robinul and Atropine gtts to assist with secretions. -Patient with significant moaning, but no furrowed brow. Patient Morphine drip increased to 9mg/hour. -Patient likely has hours to a day or so of life left. - identified home as [facility] in [place]. -Will continue to follow and provide support to patient's family as he approaches end of life. -The above communicated with hospitalist. -Patient not stable for out of hospital transfer and is not GIP appropriate. 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 See A/P for further details Review of Systems Review of Systems: Unobtainable due to reduced consciousness Physical Exam Constitutional: + acute distress and + ill appearing Respiratory: + respiratory distress, + labored breathing and + uses accessory muscles Auscultation: + rhonchi Cardiovascular: Rate/Rhythm: regular rhythm and + tachycardic Extremities: normal capillary refill Gastrointestinal (Abdomen): normal bowel sounds, soft, nontender, no hepatosplenomegaly Skin: + jaundice and + pallor Psychiatric: Orientation: + not alert Results & Data ([facility]) Vital Signs (Past 12 Hours) Vital Signs Pulse Resp BP Pulse Ox 06/07/20 11:13 97 H 9 L 71/53 L 85 L PG Care Time/CCT Total # of Minutes Spent Total Time Spent with Patient: Total time spent is greater than 50% in coordination of care (as documented) at patient's floor/unit and/or counseling patient: 35 Coding Level of Care Code 80094 Subseq Hosp Care Lvl 3 Diagnoses Goals of care, counseling/discussion Z71.89 Rupture of bowel K63.1 AMS (altered mental status) R41.82 Alcohol abuse F10.10 Jaundice R17 Liver cirrhosis K74.60 Time Spent (min) 35 Time Spent Midlevel Total time spent 35 minutes with > 50% Of that time spent assessing the patient, discussing goals of care and addressing symptom management needs.
[2020-06-07] MEDS ORDERED: ONDANSETRON 4 MG OD TAB SL PRN (13:52)
[2020-06-07] MEDS ORDERED: LORazepam 0.5 MG TAB PO PRN (13:52)
[2020-06-07] MEDS ORDERED: ONDANSETRON INJ 2 MG/ML 2 ML VIAL IV PRN (13:52)
[2020-06-07] MEDS: ATROPINE SULFATE 1% OP SOLN 2 ML BTL SL PRN ×3 (14:29→18:03)
[2020-06-07] MEDS: LORazepam 0.5 MG/1 ML VIAL IV PRN ×2 (18:13→22:59)
[2020-06-07] MEDS: GLYCOPYRROLATE 0.2 MG/ML VIAL IV PRN ×2 (19:32→21:27)
--- NOTE | 2020-06-07 20:26 | Hospitalist Progress Note ---
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 CT scan of the abdomen pelvis revealed free air with concern for perforated sigmoid diverticulitis. Surgery discussed this with the family and decided to pursue surgical intervention here at [facility]. Patient underwent exploratory lap repair of ruptured viscus and colostomy placement on 05/30. patient tapered off pressors, extubated and breathing well, no further signs of septic shock on 06/04 he developed hypotension from low albumin, high output of ascites fluid from VICKY, over 1.5 liters in 24 hours now with ascites leaking through incision as well as leaking around the ostomy ostomy mucosa is dark, purple, no real GI output, just ascites multiple long discussions with patient and family regarding poor prognosis on 06/04 discussed that he will not recover patient elected to change to DNR palliative care on 06/05, will stop TPN, stop antibiotics make patient comfortable Morphine drip started on 06/06 due to inadequate pain control with PRN Morphine titrate up for patient to be comfortable, okay if he develops drowsiness appearing comfortable in current situation given unresponsive and breathing pattern, may pass in imminent future family aware, offered empathy and support (2) Acute metabolic encephalopathy: (3) Acute alcoholic hepatitis: Cirrhosis on imaging confort care (4) Abdominal pain: morphine gtt, comfort care (5) Ischemic cardiomyopathy: EF 40-45% on echo this admission - now with diagnosis of systolic heart failure breathing appearing comfortable (6) Systolic CHF: EF 45% acute HF resolved (7) Acute respiratory failure with hypoxia: breathing appearing comfortable (8) Alcohol withdrawal: (9) Alcohol dependence: (10) Dysphagia: (11) Muscle weakness: (12) Tobacco use disorder: previously on nicoderm patch daily (13) Depression: (14) Electrolyte abnormality: Admission and Anticipated Discharge Date Admission Date: May 11, 2020 Subjective no HPI or ROS obtainable from pt family at bedside, offered empathy and support and updated to the best of my ability Review of Systems Review of Systems: Unobtainable due to cognitive status Physical Exam Physical Exam: gen laying in bed no distress heent nc at mm sl dry breathing unlabored starting to show probable irineo-herrera like pattern although does not show much tachypnea. does have pauses. very icteric. no pain / distress appearance Results & Data Results & Data ([facility]) Vital Signs (Past 12 Hours) Vital Signs Pulse Resp BP Pulse Ox 06/07/20 11:13 97 H 9 L 71/53 L 85 L PG Care Time/CCT Total # of Minutes Spent Total Time Spent with Patient: Total time spent is greater than 50% in coordination of care (as documented) at patient's floor/unit and/or counseling patient: Coding Level of Care Code 57019 Subseq Hosp Care Lvl 2 Diagnoses Rupture of bowel K63.1 Acute metabolic encephalopathy G93.41 Acute alcoholic hepatitis K70.10 Abdominal pain R10.13 Abdominal location: epigastric Ischemic cardiomyopathy I25.5 Systolic CHF I50.20 Acute respiratory failure with hypoxia J96.01 Alcohol withdrawal F10.239 Alcohol dependence F10.229 Complication of substance-induced condition: with unspecified complication Substance use status: with intoxication Dysphagia R13.10 Dysphagia type: unspecified Muscle weakness M62.81 Tobacco use disorder F17.200 Depression F32.9 Electrolyte abnormality E87.8 (1) Abdominal pain Abdominal location: epigastric Qualified Code(s): R10.13 - Epigastric pain (2) Alcohol dependence Complication of substance-induced condition: with unspecified complication Substance use status: with intoxication Qualified Code(s): F10.229 - Alcohol dependence with intoxication, unspecified (3) Dysphagia Dysphagia type: unspecified Qualified Code(s): R13.10 - Dysphagia, unspecified
[2020-06-07] MEDS: MoRPHine SULF/NSS 250 MG/250 ML BTL IV PRN ×4 (20:56→22:59)
[2020-06-08] MEDS: GLYCOPYRROLATE 0.2 MG/ML VIAL IV PRN ×2 (01:44→19:12)
[2020-06-08] MEDS: ATROPINE SULFATE 1% OP SOLN 2 ML BTL SL PRN ×4 (07:59→21:58)
[2020-06-08] MEDS: MoRPHine SULF/NSS 250 MG/250 ML BTL IV PRN ×2 (11:15→23:22)
[2020-06-08] MEDS: LORazepam 0.5 MG/1 ML VIAL IV PRN ×2 (12:31→16:21)
[2020-06-08] MEDS: LORazepam 1 MG/2 ML VIAL IV SCH ×2 (14:04→21:56)
--- NOTE | 2020-06-08 14:15 | Hospitalist Progress Note ---
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 CT scan of the abdomen pelvis revealed free air with concern for perforated sigmoid diverticulitis. Surgery discussed this with the family and decided to pursue surgical intervention here at [facility]. Patient underwent exploratory lap repair of ruptured viscus and colostomy placement on 05/30. patient tapered off pressors, extubated and breathing well, no further signs of septic shock on 06/04 he developed hypotension from low albumin, high output of ascites fluid from VICKY, over 1.5 liters in 24 hours now with ascites leaking through incision as well as leaking around the ostomy ostomy mucosa is dark, purple, no real GI output, just ascites multiple long discussions with patient and family regarding poor prognosis on 06/04 discussed that he will not recover patient elected to change to DNR palliative care on 06/05, will stop TPN, stop antibiotics make patient comfortable Morphine drip started on 06/06 due to inadequate pain control with PRN Morphine titrate up for patient to be comfortable, okay if he develops drowsiness appearing comfortable in current situation given unresponsive and breathing pattern, may pass in imminent future family aware, offered empathy and support (3) Acute metabolic encephalopathy: more alert and cooperative today, able to participate in talks regarding comfort care he does not want to linger 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 CT head 05/11 and 05/17 negative for acute process. remains on high-dose thiamine IV for prevention of Wernicke's encephalopathy. VBGs w/o hypercarbia. TSH, B12 wnl. ammonia wnl. MRI brain 05/23, no stroke, no tumor, no acute changes (4) Acute alcoholic hepatitis: Cirrhosis on imaging confort care (5) Abdominal pain: morphine gtt, comfort care (6) Ischemic cardiomyopathy: EF 40-45% on echo this admission - now with diagnosis of systolic heart failure breathing appearing comfortable (7) Systolic CHF: EF 45% acute HF resolved (8) Acute respiratory failure with hypoxia: breathing appearing comfortable (9) Alcohol withdrawal: previously received IV ativan while in ICU. the ativan was stopped due to excess sedation in setting of copious use. (10) Alcohol dependence: cont h thiamine, folic acid, concern for Korsakoffs syndrome was drinking 30 beers/day pre-hospitalization (11) Dysphagia: speech recommend pureed diet since mental status is questionable p.o. intake is also Severe protein calorie malnutrition with an albumin less than 1 CT head w/o stroke on 2 occasions MRI brain without stroke, done on 05/23 will need to address nutrition possible aspiration event on 06/03 and 06/04 will allow nectar thick liquids and pureed diet start TPN short term until goals of care determined (12) Muscle weakness: likely from his significant illness, now with two separate ICU stays (13) Tobacco use disorder: previously on nicoderm patch daily (14) Depression: needs Rx once mentation improved (15) Electrolyte abnormality: low magnesium, low potassium replaced via IV repeat tomorrow Admission and Anticipated Discharge Date Admission Date: May 11, 2020 Subjective patient obtunded from morphine irregular respirations family updated at the bedside Review of Systems Review of Systems: Unobtainable due to cognitive status Physical Exam Physical Exam: obtunded, appears comfortable, irregular respirations, mottling of distal extremities Results & Data Results & Data ([facility]) Medications Administered Current Inpatient Medications Atropine Sulfate (Atropine Sulfate 1% Op Soln 2 Ml Btl) 4 drops SL Q1H PRN PRN Reason: Secretions or Pulm Congestion Stop: 07/07/20 13:51 Last Admin: 06/08/20 12:31 Dose: 4 drops Documented by: Glycopyrrolate (Glycopyrrolate 0.2 Mg/Ml Vial) 0.2 mg IV Q2H PRN PRN Reason: seretions Stop: 07/07/20 13:50 Last Admin: 06/08/20 01:44 Dose: 0.2 mg Documented by: Heparin Sodium (Beef Lung) (Heparin 10 Unit/Ml 5 Ml Flush) 5 ml FLUSH PRN PRN PRN Reason: Flush Stop: 06/29/20 22:41 Last Admin: 06/08/20 12:31 Dose: 5 ml Documented by: Morphine Sulfate (Morphine Sulf/Nss) 250 mg in 250 mls @ 20 mls/hr IV .[id number] PRN; Protocol PRN Reason: Pain Stop: 06/20/20 11:11 Last Admin: 06/08/20 11:15 Dose: 20 mg/hr, 20 mls/hr Documented by: Lorazepam (Ativan) 0.5 mg in 1 mls @ 1 mls/min IV Q4H PRN PRN Reason: Anxiety/Agitation Stop: 07/07/20 13:51 Last Admin: 06/08/20 12:31 Dose: 1 mls/min Documented by: Lorazepam (Ativan) 1 mg in 2 mls @ 2 mls/min IV Q8H WESLY Stop: 07/08/20 13:29 Last Admin: 06/08/20 14:04 Dose: Not Given Documented by: Morphine Sulfate (Morphine Sulfate 10 Mg/Ml Carp/Vial) 6 mg IV Q2H PRN PRN Reason: Pain Stop: 06/22/20 14:10 Ondansetron HCl (Ondansetron Inj 2 Mg/Ml 2 Ml Vial) 4 mg IV Q4H PRN PRN Reason: Nausea And Vomiting Stop: 07/07/20 13:51 PG Care Time/CCT Total # of Minutes Spent Total Time Spent with Patient: Total time spent is greater than 50% in coordination of care (as documented) at patient's floor/unit and/or counseling patient: Coding Level of Care Code 67083 Subseq Hosp Care Lvl 1 Diagnoses Palliative care encounter Z51.5 Rupture of bowel K63.1 Acute metabolic encephalopathy G93.41 Acute alcoholic hepatitis K70.10 Abdominal pain R10.13 Abdominal location: epigastric Ischemic cardiomyopathy I25.5 Systolic CHF I50.20 Acute respiratory failure with hypoxia J96.01 Alcohol withdrawal F10.239 Alcohol dependence F10.229 Complication of substance-induced condition: with unspecified complication Substance use status: with intoxication Dysphagia R13.10 Dysphagia type: unspecified Muscle weakness M62.81 Tobacco use disorder F17.200 Depression F32.9 Electrolyte abnormality E87.8 (1) Abdominal pain Abdominal location: epigastric Qualified Code(s): R10.13 - Epigastric pain (2) Alcohol dependence Complication of substance-induced condition: with unspecified complication Substance use status: with intoxication Qualified Code(s): F10.229 - Alcohol dependence with intoxication, unspecified (3) Dysphagia Dysphagia type: unspecified Qualified Code(s): R13.10 - Dysphagia, unspecified
[2020-06-08] MEDS: MoRPHine SULFATE 10 MG/ML CARP/VIAL IV PRN ×3 (17:18→21:55)
--- NOTE | 2020-06-09 02:30 | Communication Note ---
Date of Service: June 09, 2020 Paged by RN around ~0200 to notify of pt . Upon assessment, noted no spontaneous breathing, no HR, no pulse, no response to painful stimuli, pupils fixed and dilated. Record findings in chart as well as time of . certificate filled out and handed to rn charge. Attending notified. Resident Activity Tracking Resident Involvement: Resident Care Provided Care Provided: Adult [facility]
--- NOTE | 2020-06-09 18:56 | Discharge Summary ---
Date of Service June 09, 2020 Admission HPI Per Admitting Provider Lobo Pinzon is a 59 year old male who presents to the ER with shortness of breath. The patient was unable to give me any history. His mother was at bedside and tells me he has been short of breath with chills starting last night and his just could not cope with his alcohol drinking anymore. He has been drinking 30 beers a day for the last 6 months. Most recently discharged from our service in January after alcohol withdrawal at that time. In addition he was admitted in November for a similar symptoms. Discussed care with his Tatiana over the phone. She confirms he is similar to his previous alcohol withdrawal presentations. However she does note he appears to be a low worse on this occasion. He lost his job 5 months ago and is drinking fairly beers a day. He is not eating. Reports having black stools and bowel incontinence. He has not been taking any of his medications recently. No nausea or vomiting. No watery diarrhea. Principal Diagnosis Acute alcohol hepatitis Discharge Exam not breathing, no pulse, no breath sounds, no heart sounds, unresponsive, pupils fixed Discharge Data Allergies Allergy/AdvReac Type Severity Reaction Status Date / Time No Known Allergies Allergy Unverified 02/05/20 08:04 Consultations 05/11/20 12:36 ED Decision to Admit Stat 05/11/20 15:56 Consult Case Management - Discharge Planning Routine 05/11/20 20:28 Consult Lawyer Probate Routine 05/12/20 04:02 Consult Gastroenterology Routine 05/13/20 20:36 Consult Lawyer Probate Routine 05/30/20 04:17 Consult Case Management - Discharge Planning Routine 05/30/20 09:06 Consult General Surgery Stat 06/04/20 15:09 Consult Palliative Care Routine 06/07/20 13:52 Consult Case Management - Discharge Planning Routine Consult Palliative Care Routine Procedures Performed Operation Date: 05/30/20 14:00 Actual Procedures p Exploratory Laparotomy, Bowel Resection, Ostomy(Not Applicable) - Denisse Mandujano MD Ordered Studies 05/11/20 10:36 CT abd pelvis IV con only Stat CT angio chest PE protocol Stat 05/11/20 21:46 CT head/brain wo con Urgent 05/17/20 12:23 CT head/brain wo con Routine 05/18/20 11:07 CT abd pelvis IV con only Urgent 05/19/20 14:30 US duplex portal hepatic veins Routine 05/22/20 13:00 FL video swallow Routine 05/23/20 10:36 MR brain wo/w con Routine 05/30/20 03:42 CT abd pelvis IV con only Urgent 05/30/20 05:09 US point of care ultrasound Urgent 05/30/20 07:47 US point of care ultrasound Urgent 06/05/20 11:15 FL video swallow Routine Hospital Course (1) Palliative care encounter: patient on Morphine 20mg/hr, irregular respirations on 06/08 added Ativan 1mg IV q8, use Morphine PRN if needed updated family at the bedside patient with family at bedside on 06/09 night resident pronounced patient (2) Rupture of bowel: Patient 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 CT scan of the abdomen pelvis revealed free air with concern for perforated sigmoid diverticulitis. Surgery discussed this with the family and decided to pursue surgical intervention here at [facility]. Patient underwent exploratory lap repair of ruptured viscus and colostomy placement on 05/30. patient tapered off pressors, extubated and breathing well, no further signs of septic shock on 06/04 he developed hypotension from low albumin, high output of ascites fluid from VICKY, over 1.5 liters in 24 hours now with ascites leaking through incision as well as leaking around the ostomy ostomy mucosa is dark, purple, no real GI output, just ascites multiple long discussions with patient and family regarding poor prognosis on 06/04 discussed that he will not recover patient elected to change to DNR palliative care on 06/05, will stop TPN, stop antibiotics make patient comfortable Morphine drip started on 06/06 due to inadequate pain control with PRN Morphine titrate up for patient to be comfortable (3) Acute metabolic encephalopathy: 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 CT head 05/11 and 05/17 negative for acute process. remains on high-dose thiamine IV for prevention of Wernicke's encephalopathy. VBGs w/o hypercarbia. TSH, B12 wnl. ammonia wnl. MRI brain 05/23, no stroke, no tumor, no acute changes (4) Acute alcoholic hepatitis: Cirrhosis on imaging comfort care (5) Abdominal pain: morphine gtt, comfort care (6) Ischemic cardiomyopathy: EF 40-45% on echo this admission (7) Systolic CHF: EF 45% acute HF resolved (8) Acute respiratory failure with hypoxia: due to volume overload and heart failure (9) Alcohol withdrawal: previously received IV ativan while in ICU. the ativan was stopped due to excess sedation in setting of copious use. (10) Alcohol dependence: was drinking 30 beers/day pre-hospitalization (11) Dysphagia: was on pureed diet, nectar thick liquids difficult to provide nutrition (12) Muscle weakness: likely from his significant illness, now with two separate ICU stays (13) Tobacco use disorder: previously on nicoderm patch daily (14) Depression: needs Rx once mentation improved (15) Electrolyte abnormality: Total Time Total Time Spent Total Time Spent (In Minutes): 5 minutes Discharge Plan Discharge Items Patient Disposition: Coding Level of Care Code D/C Day Management <30 mins Diagnoses Palliative care encounter Z51.5 Rupture of bowel K63.1 Acute metabolic encephalopathy G93.41 Acute alcoholic hepatitis K70.10 Abdominal pain R10.13 Abdominal location: epigastric Ischemic cardiomyopathy I25.5 Systolic CHF I50.20 Acute respiratory failure with hypoxia J96.01 Alcohol withdrawal F10.239 Alcohol dependence F10.229 Complication of substance-induced condition: with unspecified complication Substance use status: with intoxication Dysphagia R13.10 Dysphagia type: unspecified Muscle weakness M62.81 Tobacco use disorder F17.200 Depression F32.9 Electrolyte abnormality E87.8
== END 2020-06-09 04:41 | disposition expired | DRG 981 ==
LOC: ED 09:53 → 2E 12:55 → SUATTDRO 12:55 → 2E 15:29 → 1E 05-13 20:56 → 2E 05-17 11:28 → 2N 05-23 18:23 → 1E 05-30 04:15 → 2E 06-03 10:54 → 3W 06-05 16:24
DX: G93.41 Metabolic encephalopathy; K66.8 Other specified disorders of peritoneum; N17.9 Acute kidney failure, unspecified; M62.81 Muscle weakness (generalized); Z79.02 Long term (current) use of antithrombotics/antiplatelets; J18.1 Lobar pneumonia, unspecified organism; E83.42 Hypomagnesemia; I47.2 Ventricular tachycardia; R79.1 Abnormal coagulation profile; Z79.1 Long term (current) use of non-steroidal anti-inflammatories (NSAID); M25.551 Pain in right hip; E83.39 Other disorders of phosphorus metabolism; B18.2 Chronic viral hepatitis C; J69.0 Pneumonitis due to inhalation of food and vomit; K57.20 Diverticulitis of large intestine with perforation and abscess without bleeding; F10.239 Alcohol dependence with withdrawal, unspecified; T42.4X5A Adverse effect of benzodiazepines, initial encounter; I85.11 Secondary esophageal varices with bleeding; I50.23 Acute on chronic systolic (congestive) heart failure; J12.9 Viral pneumonia, unspecified; E87.0 Hyperosmolality and hypernatremia; E87.1 Hypo-osmolality and hyponatremia; E66.9 Obesity, unspecified; E78.5 Hyperlipidemia, unspecified; E87.6 Hypokalemia; Z66 Do not resuscitate; R65.21 Severe sepsis with septic shock; E87.4 Mixed disorder of acid-base balance; I25.10 Atherosclerotic heart disease of native coronary artery without angina pectoris; K70.11 Alcoholic hepatitis with ascites; E43 Unspecified severe protein-calorie malnutrition; I11.0 Hypertensive heart disease with heart failure; K70.40 Alcoholic hepatic failure without coma; K70.31 Alcoholic cirrhosis of liver with ascites; Z68.32 Body mass index [BMI] 32.0-32.9, adult; Z91.128 Patient's intentional underdosing of medication regimen for other reason; K52.9 Noninfective gastroenteritis and colitis, unspecified; Z51.5 Encounter for palliative care; M71.152 Other infective bursitis, left hip; A41.9 Sepsis, unspecified organism; F17.210 Nicotine dependence, cigarettes, uncomplicated; D69.59 Other secondary thrombocytopenia; F32.9 Major depressive disorder, single episode, unspecified; G72.81 Critical illness myopathy; Z95.5 Presence of coronary angioplasty implant and graft; Z22.1 Carrier of other intestinal infectious diseases; J96.01 Acute respiratory failure with hypoxia; R13.10 Dysphagia, unspecified; I25.5 Ischemic cardiomyopathy; K76.6 Portal hypertension; G92 Toxic encephalopathy; Z79.899 Other long term (current) drug therapy; K29.71 Gastritis, unspecified, with bleeding; Z79.82 Long term (current) use of aspirin; Z51.81 Encounter for therapeutic drug level monitoring